=== PATIENT | male | born 1940 | race Caucasian/White ===

== ENCOUNTER 2017-02-05 22:40 | Inpatient (IN) ==
--- NOTE | 2017-02-05 22:58 | Emergency Department Note ---
Disposition Clinical Impression: Elevated troponin level Sepsis Qualifiers: Sepsis type: sepsis due to unspecified organism Qualified Code(s): A41.9 - Sepsis, unspecified organism Disposition: Admitted As Inpatient Condition: Fair Time of Disposition: 01:55 Altered Mental Status HPI - General Chief Complaint: ED Weakness Stated Complaint: weakness in both legs Time Seen by Provider: 02/05/17 22:44 Source: EMS Mode of arrival: EMS Limitations: altered mental status Nursing Notes Reviewed: Yes Vital Signs Reviewed: Yes - History of Present Illness HPI Narrative: 77-year-old male is brought to the emergency department by EMS for evaluation of stated back, and leg pain. Per EMS report, the patient had been on a bedside commode for an unknown duration. The patient, although altered, was only able to tell EMS personnel that he had been on the bedside commode since "this morning". Family had made attempts to reach the patient, but was unsuccessful. After multiple attempts, the family said a family member over to his house. At that time, but patient was found to be sitting on a bedside commode. The patient lives alone by himself. Last time any of his friends or family members heard from him was yesterday evening before he went to bed. Per the daughter's report who is at bedside, the patient was supposed to call his significant other upon waking this morning, however failed to do so. At the time my exam, the patient has no complaints of pain either in his back, buttocks , or legs. Upon questioning, he is only able to state that he "just could not get up". The patient is noted to have severe bilateral lower extremity lymphedema. The right leg has multiple open areas and is seeping a greenish/ yellowish purulent discharge. MD complaint: altered mental status, other Onset (ago): hour(s) Associated symptoms: Reports: weakness, difficulty walking - Related Data Allergies Allergy/AdvReac Type Severity Reaction Status Date / Time No Known Allergies Allergy Verified 02/05/17 23:07 Limitations: ROS unobtainable due to patients medical condition (Review of systems limited by patient's altered mental status) Past Medical History - Past Medical History Attestation: Yes The following information was validated with the patient. Source: obtained from family, nursing notes reviewed Medical history: Reports: other Physical Exam - General Limitations: altered mental status General appearance: alert (The patient is alert to person only.) - Head Head exam: atraumatic, normocephalic, normal inspection - Eye Eye exam: Present: normal appearance, PERRL, EOMI. Absent: nystagmus - Expanded Eye Exam Pupils: Bilateral: regular, round, reactive, size (2) - ENT ENT exam: mucous membranes dry - Neck Neck exam: Present: normal inspection, full ROM, trachea midline. Absent: lymphadenopathy - Chest Chest inspection: Present: normal inspection, symmetric chest wall rise - Respiratory Respiratory exam: Present: normal lung sounds bilaterally. Absent: respiratory distress, wheezes, stridor, accessory muscle use, prolonged expiratory phase - Cardiovascular Cardiovascular exam: Present: regular rate, normal rhythm, normal heart sounds - Abdominal Exam Abdominal exam: Present: soft, Non-Tender, normal bowel sounds. Absent: tenderness, distention, guarding, rebound, rigidity - Expanded Lower Extremity Exam Lower leg exam: Present: swelling (3+ pitting edema noted to the bilateral lower extremities), other (Severe lymphedema noted to bilateral lower extremities. Multiple open areas of the right lower extremity are draining a purulent yellowish/greenish discharge.) Foot/toe exam: Present: swelling (3+ pitting pedal edema noted bilaterally) Neurovascular/Tendon exam: Present: normal capillary refill. Absent: pulse deficit, motor deficit, sensory deficit, tendon deficit, extremity cold to touch - Neurological Exam Neurological exam: Present: alert - Expanded Neurological Exam Cranial nerves: EOM function (II, III, IV, ): Normal, facial palsy (VII): Normal, tongue deviation (XII): Normal Coma Scale Eye Opening: Spontaneous Coma Scale Motor Response: Obeys Commands Coma Scale Verbal Response: Confused Coma Scale Total: 14 - Psychiatric Psychiatric exam: Present: flat affect - Skin Skin exam: Present: warm, dry, intact, normal color Course Course Narrative: The patient's daughter and granddaughter who are in the room states that the last time they had heard from him was yesterday evening at approximately 2130. 0150: I have discussed this patient's case with Dr. Fontenot. Dr. Fontenot has had a [id number] evaluation with the patient and agrees with the plan. Recommendation has been made for admission to the hospitalist service. At this time, I am awaiting a return call from the hospitalist. He recommends administering at least 2 L of IV fluid due to the patient's elevated BNP. 0210: I spoke with Dr. Ling, hospitalist. Dr. Ling accepts the patient for admission 0245: The patient's lactic acid has improved to 3.1 after the administration of 2 L of IV fluid. At this point, I feel that it is appropriate to hold additional fluids due to the patient's elevated BNP and chest x-ray results at the risk of putting him into pulmonary edema. I discussed this plan with Dr. Gurrola and he is in agreement with this plan. Vital Signs Temperature 98.2 F 02/05/17 22:55 Pulse Rate 96 02/05/17 22:55 Respiratory Rate 18 02/05/17 22:55 Blood Pressure 107/93 02/05/17 22:55 O2 Sat by Pulse Oximetry 87 02/05/17 22:55 Temperature 98.1 F 02/06/17 03:29 Pulse Rate 83 02/06/17 03:29 Respiratory Rate 22 02/06/17 03:29 Blood Pressure 125/71 02/06/17 03:29 O2 Sat by Pulse Oximetry 98 02/06/17 03:29 Oxygen Delivery Oxygen Delivery Nasal Cannula Altered Mental Status - Medical Records Medical records reviewed: Yes I reviewed the patient's medical records. - Lab Data Lab results reviewed: Yes I reviewed the patient's lab results. Lab results narrative: Laboratory Last Values WBC 24.1 K/mcL (4.3-11.1) H 02/05/17 23:05 RBC 4.62 M/mcL (4.19-5.50) 02/05/17 23:05 Hgb 12.6 g/dL (12.9-16.9) L 02/05/17 23:05 Hct 40.7 % (37.5-50.1) 02/05/17 23:05 MCV 88.1 fL (83.0-100.0) 02/05/17 23:05 MCH 27.3 pg (28.0-33.3) L 02/05/17 23:05 MCHC 31.0 g/dL (31.6-35.5) L 02/05/17 23:05 RDW 18.9 % (11.5-14.5) H 02/05/17 23:05 Plt Count 182 K/mcL (140-400) 02/05/17 23:05 MPV 10.0 fL (9.4-12.4) 02/05/17 23:05 Seg Neutrophils % 68.0 % 02/05/17 23:05 Band Neutrophils % 22.0 % (0-4) H 02/05/17 23:05 Lymphocytes % 2.0 % 02/05/17 23:05 Monocytes % 6.0 % 02/05/17 23:05 Metamyelocytes % 2.0 % (0) H 02/05/17 23:05 Neutrophils # 21.7 K/mcL (1.6-8.9) H 02/05/17 23:05 Lymphocytes # 0.5 K/mcL (0.6-4.6) L 02/05/17 23:05 Monocytes # 1.5 K/mcL (0.0-1.3) H 02/05/17 23:05 Nucleated RBCs/100 WBC 0.1 /100 WBC (0) H 02/05/17 23:05 Platelet Estimate Normal (Normal) 02/05/17 23:05 Large Platelets Present (Not Present) A 02/05/17 23:05 Polychromasia 1+ (Not Present) A 02/05/17 23:05 PT 18.1 Seconds (9.4-12.1) H 02/05/17 23:05 INR 1.7 02/05/17 23:05 APTT 33.4 Seconds (26.0-36.0) 02/05/17 23:05 ABG pH 7.34 pH Units (7.32-7.45) 02/05/17 23:28 ABG pCO2 49 mmHg (35-45) H 02/05/17 23:28 ABG pO2 90 mmHg (85-104) 02/05/17 23:28 ABG HCO3 26.4 mEQ/L (21-27) 02/05/17:28 ABG Total CO2 27.9 mEq/L (20-26) H 02/05/17 23:28 ABG O2 Saturation 96 % (95-98) 02/05/17 23:28 ABG Base Excess 0.0 mEq/L (-2.0 to 3.0) 02/05/17 23:28 Blood Gas Modality NC 02/05/17 23: Inspired O2 40 % 02/05/17 23:28 Sodium 142 mEq/L (136-145) 02/05/17 23:05 Potassium 3.9 mEq/L (3.5-4.5) 02/05/17 23:05 Chloride 105 mEq/L (98-109) 02/05/17 23:05 Carbon Dioxide 22 mEq/L (19-29) 02/05/17 23:05 BUN 36 mg/dL (8-26) H 02/05/17 23:05 Creatinine 1.57 mg/dL (0.72-1.25) H 02/05/17 23:05 Est GFR ( Amer) 52 (> 60) L 02/05/17 23:05 Est GFR (Non-Af Amer) 43 (> 60) L 02/05/17 23:05 BUN/Creatinine Ratio 23 (6-26) 02/05/17 23:05 Glucose 113 mg/dL (70-99) H 02/05/17 23:05 Calculated Osmolality 303 (280-300) H 02/05/17 23:05 Lactic Acid 4.2 mmol/L (0.5-2.2) H* 02/05/17 23:05 Calcium 9.5 mg/dL (8.6-10.8) 02/05/17 23:05 Total Bilirubin 2.7 mg/dL (0.2-1.2) H 02/05/17 23:05 Direct Bilirubin 1.8 mg/dL (0.0-0.5) H 02/05/17 23:05 Indirect Bilirubin 0.9 mg/dL (0.0-1.2) 02/05/17 23:05 AST 58 Units/L (5-34) H 02/05/17 23:05 ALT 23 Units/L (0-55) 02/05/17 23:05 Alkaline Phosphatase 111 Units/L (38-126) 02/05/17 23:05 Ammonia 40 mcmol/L (18-72) 02/05/17 23:05 Troponin I 0.17 ng/mL (0-0.03) H* 02/05/17 23:05 B-Natriuretic Peptide 2958 pg/mL (0-100) H 02/05/17 23:05 Serum Total Protein 7.3 g/dL (6.0-8.3) 02/05/17 23:05 Albumin 2.8 g/dL (3.5-5.0) L 02/05/17 23:05 Globulin 4.5 g/dL (2.4-3.5) H 02/05/17 23:05 Albumin/Globulin Ratio 0.6 (1.1-2.2) L 02/05/17 23:05 Urine Color [place] (Yellow) A 02/06/17 00:49 Urine Clarity Cloudy (Clear) A 02/06/17 00:49 Urine pH 5.5 pH Units (5.0-8.0) 02/06/17 00:49 Ur Specific [place] 1.026 (1.010-1.025) H 02/06/17 00:49 Urine Protein 100 mg/dL (Neg-Trace) H 02/06/17 00:49 Urine Glucose (UA) Normal mg/dL (Normal) 02/06/17 00:49 Urine Ketones Trace mg/dL (Negative) H 02/06/17 00:49 Urine Blood Moderate (Negative) H 02/06/17 00:49 Urine Nitrite Negative (Negative) 02/06/17 00:49 Urine Bilirubin Moderate (Negative) H 02/06/17 00:49 Urine Urobilinogen Normal mg/dL (Normal) 02/06/17 00:49 Ur Leukocyte Esterase Small (Negative) H 02/06/17 00:49 Urine Microscopic RBC 5-15 per hpf (0-3) H 02/06/17 00:49 Urine Microscopic WBC 5-15 per hpf (0-3) H 02/06/17 00:49 Ur Squamous Epith Cells Many per lpf (None-Few) H 02/06/17 00:49 Urine Bacteria Few per hpf (None-Few) 02/06/17 00:49 Hyaline Casts Few per lpf (None-Few) 02/06/17 00:49 Urine Yeast Test Not Performed 02/06/17 00:49 Ur Culture Indicated? YES (NO) A 02/06/17 00:49 Urine Opiates Screen Negative ng/mL (Ctagoq=712) 02/06/17 00:49 Ur Barbiturates Screen Negative ng/mL (Wtkwgd=598) 02/06/17 00:49 Ur Phencyclidine Scrn Negative ng/mL (Cutoff=25) 02/06/17 00:49 Ur Amphetamines Screen Negative ng/mL (Wybtko=7797) 02/06/17 00:49 U Benzodiazepines Scrn Negative ng/mL (Nkoese=630) 02/06/17 00:49 Urine Cocaine Screen Negative ng/mL (Cutoff= 300) 02/06/17 00:49 U Marijuana (THC) Screen Negative ng/mL (Cutoff = 50) 02/06/17 00:49 Ethyl Alcohol < 10 mg/dL (0-10) 02/05/17 23:05 Result diagrams: 02/05/17 23:05 02/05/17 23:05 Lab Results 02/05/17 02/05/17 02/05/17 Range/Units 23:05 23:05 23:05 WBC 24.1 H (4.3-11.1) K/mcL RBC 4.62 (4.19-5.50) M/mcL Hgb 12.6 L (12.9-16.9) g/dL Hct 40.7 (37.5-50.1) % MCV 88.1 (83.0-100.0) fL MCH 27.3 L (28.0-33.3) pg MCHC 31.0 L (31.6-35.5) g/dL RDW 18.9 H (11.5-14.5) % Plt Count 182 (140-400) K/mcL MPV 10.0 (9.4-12.4) fL Seg Neutrophils % 68.0 % Band Neutrophils % 22.0 H (0-4) % Lymphocytes % 2.0 % Monocytes % 6.0 % Metamyelocytes % 2.0 H (0) % Neutrophils # 21.7 H (1.6-8.9) K/mcL Lymphocytes # 0.5 L (0.6-4.6) K/mcL Monocytes # 1.5 H (0.0-1.3) K/mcL Nucleated RBCs/100 WBC 0.1 H (0) /100 WBC Platelet Estimate Normal (Normal) Large Platelets Present A (Not Present) Polychromasia 1+ A (Not Present) PT 18.1 H (9.4-12.1) Seconds INR 1.7 APTT 33.4 (26.0-36.0) Seconds ABG pH (7.32-7.45) pH Units ABG pCO2 (35-45) mmHg ABG pO2 (85-104) mmHg ABG HCO3 (21-27) mEQ/L ABG Total CO2 (20-26) mEq/L ABG O2 Saturation (95-98) % ABG Base Excess (-2.0 to 3.0) mEq/L Blood Gas Modality Inspired O2 % Sodium 142 (136-145) mEq/L Potassium 3.9 (3.5-4.5) mEq/L Chloride 105 (98-109) mEq/L Carbon Dioxide 22 (19-29) mEq/L BUN 36 H (8-26) mg/dL Creatinine 1.57 H (0.72-1.25) mg/dL Est GFR ( Amer) 52 L (> 60) Est GFR (Non-Af Amer) 43 L (> 60) BUN/Creatinine Ratio 23 (6-26) Glucose 113 H (70-99) mg/dL Calculated Osmolality 303 H (280-300) Lactic Acid (0.5-2.2) mmol/L Calcium 9.5 (8.6-10.8) mg/dL Total Bilirubin 2.7 H (0.2-1.2) mg/dL Direct Bilirubin 1.8 H (0.0-0.5) mg/dL Indirect Bilirubin 0.9 (0.0-1.2) mg/dL AST 58 H (5-34) Units/L ALT 23 (0-55) Units/L Alkaline Phosphatase 111 (38-126) Units/L Ammonia (18-72) mcmol/L Troponin I (0-0.03) ng/mL B-Natriuretic Peptide (0-100) pg/mL Serum Total Protein 7.3 (6.0-8.3) g/dL Albumin 2.8 L (3.5-5.0) g/dL Globulin 4.5 H (2.4-3.5) g/dL Albumin/Globulin Ratio 0.6 L (1.1-2.2) Urine Color (Yellow) Urine Clarity (Clear) Urine pH (5.0-8.0) pH Units Ur Specific [place] (1.010-1.025) Urine Protein (Neg-Trace) mg/dL Urine Glucose (UA) (Normal) mg/dL Urine Ketones (Negative) mg/dL Urine Blood (Negative) Urine Nitrite (Negative) Urine Bilirubin (Negative) Urine Urobilinogen (Normal) mg/dL Ur Leukocyte Esterase (Negative) Urine Microscopic RBC (0-3) per hpf Urine Microscopic WBC (0-3) per hpf Ur Squamous Epith Cells (None-Few) per lpf Urine Bacteria (None-Few) per hpf Hyaline Casts (None-Few) per lpf Urine Yeast Ur Culture Indicated? (NO) Urine Opiates Screen (Ihnoiz=548) ng/mL Ur Barbiturates Screen (Rhjqdg=716) ng/mL Ur Phencyclidine Scrn (Cutoff=25) ng/mL Ur Amphetamines Screen (Iwyagg=2892) ng/mL U Benzodiazepines Scrn (Ezrzgk=877) ng/mL Urine Cocaine Screen (Cutoff= 300) ng/mL U Marijuana (THC) Screen (Cutoff = 50) ng/mL Ethyl Alcohol < 10 (0-10) mg/dL 02/05/17 02/05/17 02/05/17 Range/Units 23:05 23:05 23:05 WBC (4.3-11.1) K/mcL RBC (4.19-5.50) M/mcL Hgb (12.9-16.9) g/dL Hct (37.5-50.1) % MCV (83.0-100.0) fL MCH (28.0-33.3) pg MCHC (31.6-35.5) g/dL RDW (11.5-14.5) % Plt Count (140-400) K/mcL MPV (9.4-12.4) fL Seg Neutrophils % % Band Neutrophils % (0-4) % Lymphocytes % % Monocytes % % Metamyelocytes % (0) % Neutrophils # (1.6-8.9) K/mcL Lymphocytes # (0.6-4.6) K/mcL Monocytes # (0.0-1.3) K/mcL Nucleated RBCs/100 WBC (0) /100 WBC Platelet Estimate (Normal) Large Platelets (Not Present) Polychromasia (Not Present) PT (9.4-12.1) Seconds INR APTT (26.0-36.0) Seconds ABG pH (7.32-7.45) pH Units ABG pCO2 (35-45) mmHg ABG pO2 (85-104) mmHg ABG HCO3 (21-27) mEQ/L ABG Total CO2 (20-26) mEq/L ABG O2 Saturation (95-98) % ABG Base Excess (-2.0 to 3.0) mEq/L Blood Gas Modality Inspired O2 % Sodium (136-145) mEq/L Potassium (3.5-4.5) mEq/L Chloride (98-109) mEq/L Carbon Dioxide (19-29) mEq/L BUN (8-26) mg/dL Creatinine (0.72-1.25) mg/dL Est GFR ( Amer) (> 60) Est GFR (Non-Af Amer) (> 60) BUN/Creatinine Ratio (6-26) Glucose (70-99) mg/dL Calculated Osmolality (280-300) Lactic Acid 4.2 H* (0.5-2.2) mmol/L Calcium (8.6-10.8) mg/dL Total Bilirubin (0.2-1.2) mg/dL Direct Bilirubin (0.0-0.5) mg/dL Indirect Bilirubin (0.0-1.2) mg/dL AST (5-34) Units/L ALT (0-55) Units/L Alkaline Phosphatase (38-126) Units/L Ammonia 40 (18-72) mcmol/L Troponin I 0.17 H* (0-0.03) ng/mL B-Natriuretic Peptide (0-100) pg/mL Serum Total Protein (6.0-8.3) g/dL Albumin (3.5-5.0) g/dL Globulin (2.4-3.5) g/dL Albumin/Globulin Ratio (1.1-2.2) Urine Color (Yellow) Urine Clarity (Clear) Urine pH (5.0-8.0) pH Units Ur Specific [place] (1.010-1.025) Urine Protein (Neg-Trace) mg/dL Urine Glucose (UA) (Normal) mg/dL Urine Ketones (Negative) mg/dL Urine Blood (Negative) Urine Nitrite (Negative) Urine Bilirubin (Negative) Urine Urobilinogen (Normal) mg/dL Ur Leukocyte Esterase (Negative) Urine Microscopic RBC (0-3) per hpf Urine Microscopic WBC (0-3) per hpf Ur Squamous Epith Cells (None-Few) per lpf Urine Bacteria (None-Few) per hpf Hyaline Casts (None-Few) per lpf Urine Yeast Ur Culture Indicated? (NO) Urine Opiates Screen (Wothhv=085) ng/mL Ur Barbiturates Screen (Gxpvel=937) ng/mL Ur Phencyclidine Scrn (Cutoff=25) ng/mL Ur Amphetamines Screen (Ujxkyk=0270) ng/mL U Benzodiazepines Scrn (Pgyglp=846) ng/mL Urine Cocaine Screen (Cutoff= 300) ng/mL U Marijuana (THC) Screen (Cutoff = 50) ng/mL Ethyl Alcohol (0-10) mg/dL 02/05/17 02/05/17 02/06/17 Range/Units 23:05 23:28 00:49 WBC (4.3-11.1) K/mcL RBC (4.19-5.50) M/mcL Hgb (12.9-16.9) g/dL Hct (37.5-50.1) % MCV (83.0-100.0) fL MCH (28.0-33.3) pg MCHC (31.6-35.5) g/dL RDW (11.5-14.5) % Plt Count (140-400) K/mcL MPV (9.4-12.4) fL Seg Neutrophils % % Band Neutrophils % (0-4) % Lymphocytes % % Monocytes % % Metamyelocytes % (0) % Neutrophils # (1.6-8.9) K/mcL Lymphocytes # (0.6-4.6) K/mcL Monocytes # (0.0-1.3) K/mcL Nucleated RBCs/100 WBC (0) /100 WBC Platelet Estimate (Normal) Large Platelets (Not Present) Polychromasia (Not Present) PT (9.4-12.1) Seconds INR APTT (26.0-36.0) Seconds ABG pH 7.34 (7.32-7.45) pH Units ABG pCO2 49 H (35-45) mmHg ABG pO2 90 (85-104) mmHg ABG HCO3 26.4 (21-27) mEQ/L ABG Total CO2 27.9 H (20-26) mEq/L ABG O2 Saturation 96 (95-98) % ABG Base Excess 0.0 (-2.0 to 3.0) mEq/L Blood Gas Modality NC Inspired O2 40 % Sodium (136-145) mEq/L Potassium (3.5-4.5) mEq/L Chloride (98-109) mEq/L Carbon Dioxide (19-29) mEq/L BUN (8-26) mg/dL Creatinine (0.72-1.25) mg/dL Est GFR ( Amer) (> 60) Est GFR (Non-Af Amer) (> 60) BUN/Creatinine Ratio (6-26) Glucose (70-99) mg/dL Calculated Osmolality (280-300) Lactic Acid (0.5-2.2) mmol/L Calcium (8.6-10.8) mg/dL Total Bilirubin (0.2-1.2) mg/dL Direct Bilirubin (0.0-0.5) mg/dL Indirect Bilirubin (0.0-1.2) mg/dL AST (5-34) Units/L ALT (0-55) Units/L Alkaline Phosphatase (38-126) Units/L Ammonia (18-72) mcmol/L Troponin I (0-0.03) ng/mL B-Natriuretic Peptide 2958 H (0-100) pg/mL Serum Total Protein (6.0-8.3) g/dL Albumin (3.5-5.0) g/dL Globulin (2.4-3.5) g/dL Albumin/Globulin Ratio (1.1-2.2) Urine Color [place] A (Yellow) Urine Clarity Cloudy A (Clear) Urine pH 5.5 (5.0-8.0) pH Units Ur Specific [place] 1.026 H (1.010-1.025) Urine Protein 100 H (Neg-Trace) mg/dL Urine Glucose (UA) Normal (Normal) mg/dL Urine Ketones Trace H (Negative) mg/dL Urine Blood Moderate H (Negative) Urine Nitrite Negative (Negative) Urine Bilirubin Moderate H (Negative) Urine Urobilinogen Normal (Normal) mg/dL Ur Leukocyte Esterase Small H (Negative) Urine Microscopic RBC 5-15 H (0-3) per hpf Urine Microscopic WBC 5-15 H (0-3) per hpf Ur Squamous Epith Cells Many H (None-Few) per lpf Urine Bacteria Few (None-Few) per hpf Hyaline Casts Few (None-Few) per lpf Urine Yeast Test Not Performed Ur Culture Indicated? YES A (NO) Urine Opiates Screen (Feiilz=483) ng/mL Ur Barbiturates Screen (Ffqsnz=276) ng/mL Ur Phencyclidine Scrn (Cutoff=25) ng/mL Ur Amphetamines Screen (Yprfwi=0824) ng/mL U Benzodiazepines Scrn (Wdkdjt=202) ng/mL Urine Cocaine Screen (Cutoff= 300) ng/mL U Marijuana (THC) Screen (Cutoff = 50) ng/mL Ethyl Alcohol (0-10) mg/dL 02/06/17 02/06/17 Range/Units 00:49 02:26 WBC (4.3-11.1) K/mcL RBC (4.19-5.50) M/mcL Hgb (12.9-16.9) g/dL Hct (37.5-50.1) % MCV (83.0-100.0) fL MCH (28.0-33.3) pg MCHC (31.6-35.5) g/dL RDW (11.5-14.5) % Plt Count (140-400) K/mcL MPV (9.4-12.4) fL Seg Neutrophils % % Band Neutrophils % (0-4) % Lymphocytes % % Monocytes % % Metamyelocytes % (0) % Neutrophils # (1.6-8.9) K/mcL Lymphocytes # (0.6-4.6) K/mcL Monocytes # (0.0-1.3) K/mcL Nucleated RBCs/100 WBC (0) /100 WBC Platelet Estimate (Normal) Large Platelets (Not Present) Polychromasia (Not Present) PT (9.4-12.1) Seconds INR APTT (26.0-36.0) Seconds ABG pH (7.32-7.45) pH Units ABG pCO2 (35-45) mmHg ABG pO2 (85-104) mmHg ABG HCO3 (21-27) mEQ/L ABG Total CO2 (20-26) mEq/L ABG O2 Saturation (95-98) % ABG Base Excess (-2.0 to 3.0) mEq/L Blood Gas Modality Inspired O2 % Sodium (136-145) mEq/L Potassium (3.5-4.5) mEq/L Chloride (98-109) mEq/L Carbon Dioxide (19-29) mEq/L BUN (8-26) mg/dL Creatinine (0.72-1.25) mg/dL Est GFR ( Amer) (> 60) Est GFR (Non-Af Amer) (> 60) BUN/Creatinine Ratio (6-26) Glucose (70-99) mg/dL Calculated Osmolality (280-300) Lactic Acid 3.1 H (0.5-2.2) mmol/L Calcium (8.6-10.8) mg/dL Total Bilirubin (0.2-1.2) mg/dL Direct Bilirubin (0.0-0.5) mg/dL Indirect Bilirubin (0.0-1.2) mg/dL AST (5-34) Units/L ALT (0-55) Units/L Alkaline Phosphatase (38-126) Units/L Ammonia (18-72) mcmol/L Troponin I (0-0.03) ng/mL B-Natriuretic Peptide (0-100) pg/mL Serum Total Protein (6.0-8.3) g/dL Albumin (3.5-5.0) g/dL Globulin (2.4-3.5) g/dL Albumin/Globulin Ratio (1.1-2.2) Urine Color (Yellow) Urine Clarity (Clear) Urine pH (5.0-8.0) pH Units Ur Specific [place] (1.010-1.025) Urine Protein (Neg-Trace) mg/dL Urine Glucose (UA) (Normal) mg/dL Urine Ketones (Negative) mg/dL Urine Blood (Negative) Urine Nitrite (Negative) Urine Bilirubin (Negative) Urine Urobilinogen (Normal) mg/dL Ur Leukocyte Esterase (Negative) Urine Microscopic RBC (0-3) per hpf Urine Microscopic WBC (0-3) per hpf Ur Squamous Epith Cells (None-Few) per lpf Urine Bacteria (None-Few) per hpf Hyaline Casts (None-Few) per lpf Urine Yeast Ur Culture Indicated? (NO) Urine Opiates Screen Negative (Mzqfjr=083) ng/mL Ur Barbiturates Screen Negative (Wsmqha=159) ng/mL Ur Phencyclidine Scrn Negative (Cutoff=25) ng/mL Ur Amphetamines Screen Negative (Sqhglz=2567) ng/mL U Benzodiazepines Scrn Negative (Giloir=619) ng/mL Urine Cocaine Screen Negative (Cutoff= 300) ng/mL U Marijuana (THC) Screen Negative (Cutoff = 50) ng/mL Ethyl Alcohol (0-10) mg/dL - Radiology Data Radiology results reviewed: Yes I reviewed the patient's radiology results. Head CT 02/05/17 22:51 IMPRESSION: 1. No acute intracranial abnormality. 2. Mild chronic small vessel ischemic changes. D/ / Pérez Navarro MD / Pérez Navarro MD Interpreting Provider: Pérez Navarro MD Chest X-Ray 02/06/17 22:51 IMPRESSION: Mild cardiomegaly and bibasilar atelectasis in this low inspiratory portable examination. D/ / Pranav Willoughby MD / Pranav Willoughby MD Interpreting Provider: Pranav Willoughby MD - EKG Data EKG attestation: Yes I reviewed and interpreted this EKG. EKG results narrative: EKG reviewed by Dr. Fontenot as well. EKG shows atrial fibrillation with aberrant conduction or ventricular premature complexes at a rate of 99 bpm. No ectopy noted. No STEMI. Attestation Statement - Attestation Attestation: I, Star Fontenot, examined this patient and my medical decision-making was reviewed with the [employer]IDENCE LIFE DIRECTOR/PA/Advanced Practice Nurse/Resident Physician. I agree with the documented findings, disposition and treatment plan as described except to the extent set forth below. 77-year-old male presents to the emergency department with concerns of weakness and fever. Patient is unable to provide a history regarding his case her presentation. Patient has purulent drainage from open wounds on bilateral lower extremities. Patient is tachycardic and has a soft blood pressure however it is still greater than 100s systolic. Patient has an elevated BNP and is also likely in congestive heart failure. Patient had an elevated troponin likely secondary to ischemic demand with an EKG that showed atrial fibrillation with a rate of 99 without evidence of STEMI. Chest x-ray did not show specific infiltrate. Patient was started on vancomycin and Zosyn for treatment of cellulitis. Patient admitted to the hospital for sepsis for further care and evaluation. Vital signs stable prior to departure from the ED.
[2017-02-05 23:15] LABS: Hematocrit 40.7 % (37.5-50.1); Hemoglobin 12.6 g/dL (12.9-16.9); Mean Corpuscular Hemoglobin 27.3 pg (28.0-33.3); Mean Corpuscular Volume 88.1 fL (83.0-100.0); Nucleated Red Blood Cells 0.1 /100 WBC (0); Platelet Count 182 K/mcL (140-400); Red Blood Count 4.62 M/mcL (4.19-5.50); Red Cell Distribution Width 18.9 % (11.5-14.5)
[2017-02-05 23:23] LABS: INR 1.7; Prothrombin Time 18.1 Seconds (9.4-12.1)
[2017-02-05 23:25] LABS: Activated Partial Thrombo Time 33.4 Seconds (26.0-36.0)
[2017-02-05 23:31] LABS: Alanine Aminotransferase 23 Units/L (0-55); Albumin 2.8 g/dL (3.5-5.0); Albumin/Globulin Ratio 0.6 (1.1-2.2); Alkaline Phosphatase 111 Units/L (38-126); Aspartate Amino Transferase 58 Units/L (5-34); BUN/Creatinine Ratio 23 (6-26); Bilirubin,Direct 1.8 mg/dL (0.0-0.5); Bilirubin,Indirect 0.9 mg/dL (0.0-1.2); Bilirubin,Total 2.7 mg/dL (0.2-1.2); Blood Urea Nitrogen 36 mg/dL (8-26); Calcium 9.5 mg/dL (8.6-10.8); Carbon Dioxide 22 mEq/L (19-29); Chloride 105 mEq/L (98-109); Globulin 4.5 g/dL (2.4-3.5); Glucose 113 mg/dL (70-99); Osmolality,Calculated 303 (280-300); Potassium 3.9 mEq/L (3.5-4.5); Sodium 142 mEq/L (136-145); Total Protein 7.3 g/dL (6.0-8.3); eGFR For African Americans 52 (> 60); eGFR For Non-African Americans 43 (> 60)
[2017-02-05 23:34] LABS: Lymphocytes # 0.5 K/mcL (0.6-4.6); Monocytes # 1.5 K/mcL (0.0-1.3); Neutrophils # 21.7 K/mcL (1.6-8.9); Platelet Estimate Normal (Normal)
[2017-02-05 23:35] LABS: Polychromasia 1+ (Not Present)
[2017-02-05 23:35] LABS: ABG HCO3 26.4 mEQ/L (21-27); ABG Oxygen Saturation 96 % (95-98); ABG PCO2 49 mmHg (35-45); ABG PH 7.34 pH Units (7.32-7.45); ABG PO2 90 mmHg (85-104); ABG TCO2 27.9 mEq/L (20-26)
[2017-02-05 23:37] LABS: Blood Gas FiO2 40 %
[2017-02-05 23:37] LABS: Large Platelets Present (Not Present)
[2017-02-06 00:05] LABS: Ethanol < 10 mg/dL (0-10)
[2017-02-06] MEDS ORDERED: Furosemide 40 MG/4 ML VIAL IVP ONE (00:07)
[2017-02-06] MEDS ORDERED: Piperacillin/Tazobactam 3.375 GM in D5% in Water (Mini-Bag+) 100 ML IVPB ONE (00:07)
[2017-02-06] MEDS ORDERED: Vancomycin 1,000 MG in D5% in Water 250 ML IVPB ONE (00:07)
[2017-02-06 00:59] LABS: Bilirubin,Urine Moderate (Negative); Blood,Urine Moderate (Negative); Clarity,Urine Cloudy (Clear); Color,Urine Orange (Yellow); Glucose,Urine (UA) Normal (Normal); Ketones,Urine Trace mg/dL (Negative); Leukocyte Esterase,Urine Small (Negative); Nitrite,Urine Negative (Negative); PH,Urine 5.5 pH Units (5.0-8.0); Protein,Urine 100 mg/dL (Neg-Trace); Specific Gravity,Urine 1.026 (1.010-1.025); Urobilinogen,Urine Normal (Normal)
[2017-02-06 01:01] LABS: Squamous Epithelial Cell,Urine Many per lpf (None-Few)
[2017-02-06 01:05] LABS: Amphetamine Screen,Urine Negative ng/mL (Cutoff=1000); Barbiturate Screen,Urine Negative ng/mL (Cutoff=200); Benzodiazepines Screen,Urine Negative ng/mL (Cutoff=200); Cannabinoid Screen,Urine Negative ng/mL (Cutoff = 50); Cocaine Screen,Urine Negative ng/mL (Cutoff= 300); Opiate Screen,Urine Negative ng/mL (Cutoff=300); Phencyclidine Screen,Urine Negative ng/mL (Cutoff=25)
[2017-02-06 01:39] LABS: Bacteria,Urine Few per hpf (None-Few); Hyaline Casts,Urine Few per lpf (None-Few)
[2017-02-06] MEDS: 0.9 % Sodium Chloride 1,000 ML IVC SCH ×2 (02:01→05:09)
[2017-02-06] MEDS ORDERED: Naloxone 0.4 MG/ML INJ IVP PRN (05:00)
[2017-02-06] MEDS ORDERED: 0.9 % Sodium Chloride 1,000 ML IVC SCH (05:00)
[2017-02-06] MEDS ORDERED: Acetaminophen 325 MG TABLET PO PRN (05:00)
[2017-02-06] MEDS ORDERED: Dextrose Gel 15 GM PO PRN ×2 (05:04)
[2017-02-06] MEDS ORDERED: D5% in Water 1,000 ML IVC PRN (05:04)
[2017-02-06] MEDS ORDERED: *HR* Dextrose 50 % in Water (Syg) 50 ML SYRINGE IVP PRN (05:04)
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
[2017-02-06] MEDS ORDERED: Vancomycin 2,000 MG in D5% in Water 250 ML IVPB SCH (06:00)
[2017-02-06] MEDS: *HR* Heparin 5,000 UNIT/ML VIAL SQ SCH ×3 (06:04→22:37)
[2017-02-06] MEDS: Vancomycin 2,000 MG in D5% in Water 500 ML IVPB SCH (06:04)
[2017-02-06 06:28] LABS: Hematocrit 38.5 % (37.5-50.1); Hemoglobin 11.9 g/dL (12.9-16.9); Mean Corpuscular HGB Conc 30.9 g/dL (31.6-35.5); Mean Corpuscular Hemoglobin 27.9 pg (28.0-33.3); Mean Corpuscular Volume 90.2 fL (83.0-100.0); Mean Platelet Volume 10.2 fL (9.4-12.4); Platelet Count 158 K/mcL (140-400); Red Blood Count 4.27 M/mcL (4.19-5.50); Red Cell Distribution Width 19.3 % (11.5-14.5)
[2017-02-06 06:39] LABS: Hemoglobin A1C 6.9 %
[2017-02-06 06:41] LABS: Lymphocytes # 1.2 K/mcL (0.6-4.6); Monocytes # 1.2 K/mcL (0.0-1.3); Neutrophils # 17.7 K/mcL (1.6-8.9); Platelet Estimate Normal (Normal)
[2017-02-06 06:42] LABS: Polychromasia 1+ (Not Present)
[2017-02-06 06:43] LABS: Calcium 9.1 mg/dL (8.6-10.8); Chol/HDL Ratio 6.7 (0-4.9); Magnesium 2.1 mg/dL (1.6-2.6); Potassium 4.5 mEq/L (3.5-4.5)
[2017-02-06] MEDS: Insulin LISPRO 300 UNITS/3 ML VIAL SQ SCH ×4 (08:03→21:13)
[2017-02-06 09:13] LABS: Acinetobacter baumannii by PCR Not Detected (Not Detect); Candida albicans by PCR Not Detected (Not Detect); Candida glabrata by PCR Not Detected (Not Detect); Candida krusei by PCR Not Detected (Not Detect); Candida parapsilosis by PCR Not Detected (Not Detect); Candida tropicalis by PCR Not Detected (Not Detect); Enterococcus by PCR Not Detected (Not Detect); Escherichia coli by PCR Not Detected (Not Detect); Klebsiella oxytoca by PCR Not Detected (Not Detect); Klebsiella pneumoniae by PCR Not Detected (Not Detect); Pseudomonas aeruginosa by PCR Not Detected (Not Detect); Serratia marcescens by PCR Not Detected (Not Detect); Staphylococcus aureus by PCR Not Detected (Not Detect); Streptococcus agalactiae(B)PCR Not Detected (Not Detect); Streptococcus by PCR ***DETECTED*** (Not Detect); Streptococcus pneumoniae PCR Not Detected (Not Detect); Streptococcus pyogenes (A) PCR ***DETECTED*** (Not Detect); blaKPC Carbapenem-Resist Gene Not Detected (Not Detect); mecA Methicillin-Resist Gene Not Detected (Not Detect); vanA/B Vancomycin-Resist Genes Not Detected (Not Detect)
[2017-02-06] MEDS ORDERED: 0.9 % Sodium Chloride 250 ML IVC ONE (11:44)
[2017-02-06] MEDS ORDERED: 0.9 % Sodium Chloride 1,000 ML IVC STA (11:48)
[2017-02-06] MEDS ORDERED: Clindamycin 900 MG/50 ML 900 MG/50 ML IV.SOLN IVPB STA (11:48)
[2017-02-06] MEDS ORDERED: Clindamycin 900 MG/50 ML 900 MG/50 ML IV.SOLN IVPB SCH (12:45)
[2017-02-06 13:27] LABS: Calcium 8.9 mg/dL (8.6-10.8); Potassium 4.2 mEq/L (3.5-4.5)
[2017-02-06] MEDS: Clindamycin 900 MG/50 ML 900 MG/50 ML IV.SOLN IVPB SCH ×2 (13:34→21:13)
[2017-02-06] MEDS: Penicillin G Potassium 4,000,000 UNIT in D5% in Water 100 ML IVPB SCH ×2 (14:22→17:48)
[2017-02-06] MEDS ORDERED: Perflutren Lipid Microsphere 1.3 ML in 0.9 % Sodium Chloride 8.7 ML IVP ONE (14:25)
[2017-02-06] MEDS ORDERED: Aminoglycoside Consult 1 EACH MC ONE (14:56)
[2017-02-06 15:46] LABS: ABG Base Excess -0.8 mEq/L (-2.0 to 3.0); ABG HCO3 26.9 mEQ/L (21-27); ABG Oxygen Saturation 93 % (95-98); ABG PCO2 56 mmHg (35-45); ABG PH 7.29 pH Units (7.32-7.45); ABG PO2 75 mmHg (85-104); ABG TCO2 28.6 mEq/L (20-26)
[2017-02-06 15:47] LABS: Blood Gas FiO2 40 %
[2017-02-06] MEDS ORDERED: Clindamycin 600 MG/50 ML 600 MG/50 ML IV.SOLN IVPB SCH (16:00)
[2017-02-06] MEDS ORDERED: Piperacillin/Tazobactam 3.375 GM in D5% in Water (Mini-Bag+) 100 ML IVPB SCH (16:00)
[2017-02-06 17:23] LABS: ABG Base Excess 1.7 mEq/L (-2.0 to 3.0); ABG HCO3 28.6 mEQ/L (21-27); ABG Oxygen Saturation 96 % (95-98); ABG PCO2 53 mmHg (35-45); ABG PH 7.34 pH Units (7.32-7.45); ABG PO2 90 mmHg (85-104); ABG TCO2 30.2 mEq/L (20-26)
[2017-02-06 17:26] LABS: Blood Gas FiO2 40 %
[2017-02-06 17:27] LABS: Blood Gas PEEP 5 cm H2O; Blood Gas Respiration Rate 16
--- NOTE | 2017-02-06 18:33 | ECHO - Doppler Report ---
Echo with Imaging Enhancement Agent Name: Bello Montanez Date of Study: 02/06/2017 Date: 1940 Ht: 68.0 in Medical Record#: [id number] Age: 77 Wt: 280.0 lb Gender: Male BSA: 2.36 Order #: [id number] Location: [facility] Room #: 2N13 Reading Physician: Dandre Yung MD, [facility] Land Surveyor: Justus Strong RDCS Ordering Physician: Roopa Ling MD Primary Physician: None Indications: Elevated troponin, Sepsis Impressions: LVEF 20-25%. Severe global left ventricular systolic dysfunction. Mild concentric left ventricular hypertrophy. Severely dilated left atrium. No pulmonary hypertension. Severely dilated right atrium. Diastolic dysfunction, NOS Left Ventricular Wall Motion: Rest Echo Findings The apex, apical inferior, mid inferior, basal inferior, apical anterior, mid anterior, basal anterior, apical septal, mid inferior septal, basal inferior septal, apical lateral, mid anterior lateral, basal anterior lateral, mid anterior septal, mid inferior lateral, basal anterior septal and basal inferior lateral sharp were hypokinetic. Findings: Study Quality * Technically adequate exam. Aortic Valve * Trileaflet aortic valve with normal function. Mitral Valve * Normal mitral valve structure and function. Interatrial Septum * No evidence of PFO by color Doppler. Aorta * Normally sized aortic root. Left Ventricle * Mild concentric left ventricular hypertrophy. * Diastolic dysfunction, NOS * LVEF 20-25%. * Severe global left ventricular systolic dysfunction. * There is no LV thrombus. Left Atrium * Severely dilated left atrium. Tricuspid Valve * Estimated RVSP is 23 mmHg. * Estimated RA pressure is 10-15mmHg. * No pulmonary hypertension. * No tricuspid stenosis. * Mild tricuspid regurgitation. Pericardium * There is a trivial pericardial effusion present. Pulmonic Valve * No pulmonic stenosis. * Trace pulmonic regurgitation. * Pulmonic valve not well visualized. Right Ventricle * Moderately dilated right ventricle. * Moderate right ventricular hypokinesis. Right Atrium * Severely dilated right atrium. IVC * The IVC is dilated. * < 50% respiratory change. History Pacer/ICD Implant Contrast: Definity 1.3 ml in 8.7 ml of saline 2 ml. Measurements: BP: 85/ 64 2D Normal Values RVIDd: 4.67 cm <2.7 cm IVSd: 1.59 cm 0.6 - 1.0 cm LVIDd: 5.31 cm 3.7 - 5.6 cm LVPWd: 1.23 cm 0.6 - 1.1 cm LVIDs: 4.79 cm 1.5 - 3.6 cm AO: 3.20 cm < 4.0 cm LA: 5.40 cm 2.0 - 4.0cm %FS: 9.79 cm >25 % LA volume: 160 Mitral Valve Peak E:.91 m/sec Peak E' Lat Reji:7.83 cm/s Peak E' Med Reji:4.46 cm/s E/E' Lat Ratio:11.6 E/E' Med Ratio:20.4 Tricuspid Valve TV Regurg Peak Grad: 23.00mmHg TV Regurg Peak Reji: 2.27m/sec Updated by Dandre Yung MD, [facility] on 02/06/2017 6:22:49 PM electronically signed on 02/06/2017 6:28:15 PM with status of Final Wall Motion [place]: 1=Normal, 2=Hypokinesis, 3=Akinesis, 4=Dyskinesis, 5=Aneurysmal, 6=Hyperkinetic, X=Not Visualized (Blank)=Missing
--- NOTE | 2017-02-06 18:45 | Event Note ---
Date of Encounter: 02/06/17 Time of Encounter: 15:25 Critical care over the first hour. Time is spent 30 minutes. 77-year-old male with past medical history of diabetes, hypertension, and heart failure who was brought by EMS because his family was concerned that patient was not answering their calls. EMS found him sitting on the bedside commode and he told EMS that he sat there for at least a day because he was too weak to get up. Patient admitted with diagnosis of severe sepsis secondary to cellulitis, and acute kidney injury. He was started on broad-spectrum antibiotics including IV Zosyn, and IV vancomycin. I examined this patient at 11 AM, he was sleepy but easy to arouse. He answered all my questions. He is more bleeding obese. Chest: Good air entry in the upper lungs. His legs had a shiny red appearance with multiple ulcers oozing purulent discharge. Blood cultures came back positive for group A streptococcus and given concern for necrotizing fascitis, I ordered bilateral lower extremity CT that revealed severe diffuse bilateral lower extremity subcutaneous fat stranding and skin thickening compatible with lymphedema versus cellulitis. No soft tissue gas. Extensive atherosclerotic disease calcification. 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 Called by nurse because patient was very lethargic. Patient was very difficult to arouse but he was able to open eyes and answer yes and no questions after tactile stimuli. Patient is a morbidly obese man. Chest showed diminished air entry bibasal. Stat ABG revealed respiratory acidosis. He was started on BiPAP. PLAN: 1. Acute hypercapnic respiratory failure secondary to JODI/OSH. Continue BiPAP overnight. Repeat ABG showed correction of respiratory acidosis.
--- NOTE | 2017-02-06 20:48 | Electrocardiograph Report ---
[address] [address] Test Date: 2017-02-05 Pat Name: Bello Montanez Department: 104 Room: 2N13 Gender: M Manager Retirement: PENNY : 1940 Requested By: Walt Carnes Order Number: [id number] Reading MD: Dandre Yung MD Measurements Intervals Soldier Rate: 99 P: NC: 0 QRS: -12 QRSD: 133 T: 26 QT: 374 QTc: 431 Interpretive Statements ATRIAL FIBRILLATION WITH ABERRANT CONDUCTION OR VENTRICULAR PREMATURE COMPLEXES INDETERMINATE AXIS RBBB Electronically Signed On 02-06-2017 20:46:00 EDT by Dandre Yung MD
[2017-02-07] MEDS: Penicillin G Potassium 4,000,000 UNIT in D5% in Water 100 ML IVPB SCH ×5 (00:46→23:48)
[2017-02-07] MEDS: Clindamycin 900 MG/50 ML 900 MG/50 ML IV.SOLN IVPB SCH ×2 (04:37→14:17)
[2017-02-07 05:14] LABS: Hematocrit 37.9 % (37.5-50.1); Hemoglobin 11.6 g/dL (12.9-16.9); Mean Corpuscular HGB Conc 30.6 g/dL (31.6-35.5); Mean Corpuscular Hemoglobin 27.8 pg (28.0-33.3); Mean Corpuscular Volume 90.9 fL (83.0-100.0); Mean Platelet Volume 11.4 fL (9.4-12.4); Nucleated Red Blood Cells 0.2 /100 WBC (0); Platelet Count 137 K/mcL (140-400); Red Blood Count 4.17 M/mcL (4.19-5.50); Red Cell Distribution Width 19.3 % (11.5-14.5)
[2017-02-07 05:33] LABS: Albumin/Globulin Ratio 0.5 (1.1-2.2); Bilirubin,Direct 1.3 mg/dL (0.0-0.5); Bilirubin,Indirect 0.5 mg/dL (0.0-1.2); Bilirubin,Total 1.8 mg/dL (0.2-1.2); Calcium 8.9 mg/dL (8.6-10.8); Globulin 4.2 g/dL (2.4-3.5); Potassium 4.4 mEq/L (3.5-4.5); Total Protein 6.4 g/dL (6.0-8.3)
[2017-02-07 05:39] LABS: Albumin 2.2 g/dL (3.5-5.0)
[2017-02-07] MEDS: *HR* Heparin 5,000 UNIT/ML VIAL SQ SCH ×3 (06:19→23:47)
[2017-02-07] MEDS: Vancomycin 2,000 MG in D5% in Water 500 ML IVPB SCH (06:20)
[2017-02-07 06:29] LABS: Monocytes # 0.7 K/mcL (0.0-1.3); Neutrophils # 14.9 K/mcL (1.6-8.9); Platelet Estimate Normal (Normal); Polychromasia 1+ (Not Present)
[2017-02-07 06:30] LABS: Anisocytosis 1+ (Not Present); Reactive Lymphocytes Present (Not Present)
[2017-02-07] MEDS: Insulin LISPRO 300 UNITS/3 ML VIAL SQ SCH ×4 (08:53→21:15)
[2017-02-07] MEDS: Levofloxacin 750 MG/150 ML 750 MG/150 ML BAG IVPB SCH (11:08)
[2017-02-07] MEDS: Lactobacillus 1 EACH CAP.SPRINK PO SCH (11:08)
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
[2017-02-07] MEDS ORDERED: *HR* Heparin 5,000 UNIT/ML VIAL IVP ONE (13:35)
[2017-02-07] MEDS ORDERED: *HR* Heparin 5,000 UNIT/ML VIAL IVP PRN ×2 (13:35)
[2017-02-07] MEDS ORDERED: Heparin 25,000 UNIT/500 ML D5W 25,000 UNIT/500 ML MLS IVC SCH (13:45)
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
[2017-02-07] MEDS ORDERED: 0.9 % Sodium Chloride 250 ML ONE (13:53)
[2017-02-07] MEDS: Ondansetron 4 MG/2 ML VIAL IVP PRN ×2 (13:55→20:16)
[2017-02-07] MEDS ORDERED: Pantoprazole 40 MG VIAL IVP SCH (14:00)
[2017-02-07 14:40] LABS: Hematocrit 35.9 % (37.5-50.1); Hemoglobin 10.9 g/dL (12.9-16.9); Mean Corpuscular HGB Conc 30.4 g/dL (31.6-35.5); Mean Corpuscular Hemoglobin 27.3 pg (28.0-33.3); Mean Platelet Volume 11.2 fL (9.4-12.4); Platelet Count 124 K/mcL (140-400); Red Blood Count 3.99 M/mcL (4.19-5.50); Red Cell Distribution Width 18.8 % (11.5-14.5)
[2017-02-07 14:43] LABS: INR 1.4; Prothrombin Time 14.9 Seconds (9.4-12.1)
[2017-02-07 14:45] LABS: Activated Partial Thrombo Time 33.3 Seconds (26.0-36.0)
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
[2017-02-07] MEDS: Pantoprazole 40 MG in 0.9 % Sodium Chloride Mini Bag 100 ML IVC SCH ×2 (15:33→20:14)
[2017-02-07 15:49] LABS: Protein/Creatinine Ratio,Urine 0.41 mg/mg (0-0.20)
[2017-02-07] MEDS: Clindamycin 600 MG/50 ML 600 MG/50 ML IV.SOLN IVPB SCH ×2 (17:21→23:47)
--- NOTE | 2017-02-07 18:41 | Internal Med Progress Note ---
Date of Encounter: 02/07/17 Time of Encounter: 09:15 - Assessment and plan (1) Severe sepsis Current Visit: Yes Status: Acute Assessment and plan: secondary to GAS bacteremia and RLE cellulitis with infected ulcers. 02/05: blood cultures grew GAS 2/2. wound culture growing GNR. Ct of lower extremities shows severe diffuse bilateral lower extremity subcutaneous fat stranding and skin thickening compatible with lymphedema versus cellulitis. No soft tissue gas. Extensive atherosclerotic disease calcification. TTE negative for vegetation. Appreciate ID input. slowly improving. continue IV clindamycin and Penicillin. culturelle. repeat blood cultures. levaquin due to gnr wound culture. (2) Bacteremia Current Visit: Yes Status: Acute Assessment and plan: GAS bacteremia. plan as above. (3) Cellulitis Current Visit: Yes Status: Acute Assessment and plan: Plan as above. Qualifiers: Site of cellulitis: extremity Site of cellulitis of extremity: lower extremity Laterality: right Qualified Code(s): L03.115 - Cellulitis of right lower limb (4) Acute respiratory failure with hypoxia and hypercapnia Current Visit: Yes Status: Acute Assessment and plan: secondary to systolic heart failure EF 20%, COPD, JODI/OHS. 02/06: patient developed respiratory acidosis with encephalopathy that resolved after BIPAP. 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 Echo obtained shows EF 20-25%, severe global LV systolic dysfunction. Mild LVH, severely dilated left and right atrium. 02/07: repeat CXR shows pulmonary vascular congestion. appreciate cardiology input. continue nebs, oxygen. (5) SAGE (acute kidney injury) Current Visit: Yes Status: Acute Assessment and plan: unclear baseline kidney function. appreciate nephrology input. renal us unremarkable. poor UOP. close monitor. avoid nephrotoxic agents as possible. (6) Elevated troponin level Current Visit: Yes Status: Acute Assessment and plan: troponin peaked at 0.25. secondary to demand ischemia. (7) Acute systolic heart failure Current Visit: Yes Status: Acute Assessment and plan: plan as respiratory failure. (8) Hematemesis with nausea Current Visit: Yes Status: Acute Assessment and plan: KUB shows gastric distension. NG tube. (9) Diabetes mellitus Current Visit: Yes Status: Chronic Assessment and plan: adequate accuchecks. ISS. Qualifiers: Diabetes mellitus type: type 2 Diabetes mellitus complication status: with unspecified complications Diabetes mellitus terminal makeup operator insulin use: without terminal makeup operator use Qualified Code(s): E11.8 - Type 2 diabetes mellitus with unspecified complications (10) Cardiomyopathy Current Visit: Yes Status: Acute Assessment and plan: appreciate cardiology input. pt needs [facility] when medically stable. Qualifiers: Cardiomyopathy type: unspecified Qualified Code(s): I42.9 - Cardiomyopathy , unspecified (11) CAD (coronary artery disease) Current Visit: Yes Status: Chronic Qualifiers: Coronary Disease-Associated Artery/Lesion type: [place] artery [place] vs. transplanted heart: [place] heart Associated angina: without angina Qualified Code(s): I25.10 - Atherosclerotic heart disease of [place] coronary artery without angina pectoris (12) Back pain Current Visit: Yes Status: Acute Assessment and plan: check CT Cervical and lumbar spine. pain control. Qualifiers: Back pain location: low back pain Chronicity: chronic Back pain laterality: midline Sciatica presence: without sciatica Qualified Code(s): M54.5 - Low back pain; G89.29 - Other chronic pain (13) Anemia Current Visit: Yes Status: Acute Assessment and plan: hgb 10. check ferritin, iron, folate, b12 Qualifiers: Anemia type: unspecified type Qualified Code(s): D64.9 - Anemia, unspecified (14) A-fib Current Visit: Yes Status: Chronic Assessment and plan: pt unaware of afib. CHADS-vasc of 6. Qualifiers: Atrial fibrillation type: chronic Qualified Code(s): I48.2 - Chronic atrial fibrillation (15) Essential hypertension Current Visit: Yes Status: Acute (16) Acute metabolic encephalopathy Current Visit: Yes Status: Acute Assessment and plan: improved. secondary to infection, respiratory acidosis. (17) Lactic acidosis Current Visit: Yes Status: Resolved - Subjective Interval history: patient reports chronic back pain. - Constitutional Vitals: Temp Pulse Resp BP Pulse Ox 97.3 F L 84 18 99/59 95 02/07/17 16:16 02/07/17 16:16 02/07/17 16:16 02/07/17 16:16 02/07/17 16:16 General appearance: Present: disheveled, A&O X 2, morbidly obese. Absent: answers questions appropriately - Neck Neck exam general surgery: Present: supple, trachea midline - Respiratory Respiratory exam: Present: decreased breath sounds, rhonchi - Cardiovascular Cardiovascular exam: Present: RRR - GI/Abdominal GI/Abdominal exam: Present: normal bowel sounds, soft. Absent: distended, tenderness - Extremities Exam Extremities exam: Present: pedal edema - Neurological Exam Neurological exam: Present: alert, oriented X3. Absent: facial droop, speech deficit - Skin Skin exam: Present: erythema (RLE cellulitis with oozing ulcers. ) Internal Medicine: Result - Labs CBC & Chem 7: 02/07/17 14:30 02/07/17 04:35 Labs: Short CBC 02/07/17 02/07/17 Range/Units 04:35 14:30 WBC 16.5 H 17.2 H (4.3-11.1) K/mcL Hgb 11.6 L 10.9 L (12.9-16.9) g/dL Hct 37.9 35.9 L (37.5-50.1) % Plt Count 137 L 124 L (140-400) K/mcL Neutrophils # 14.9 H (1.6-8.9) K/mcL BMP 02/07/17 04:35 Sodium 139 Potassium 4.4 Chloride 105 Carbon Dioxide 26 BUN 57 H Creatinine 1.90 H Glucose 145 H Calcium 8.9 Cardiac Enzymes 02/06/17 Range/Units 18:39 Troponin I 0.24 H* (0-0.03) ng/mL Liver Function 02/07/17 Range/Units 04:35 Total Bilirubin 1.8 H (0.2-1.2) mg/dL Direct Bilirubin 1.3 H (0.0-0.5) mg/dL AST 105 H (5-34) Units/L ALT 42 (0-55) Units/L Alkaline Phosphatase 84 (38-126) Units/L Albumin 2.2 L D (3.5-5.0) g/dL - ABG Interpretation ABG results: ABG ABG pH 7.34 pH Units (7.32-7.45) 02/06/17 17:10 ABG pCO2 53 mmHg (35-45) H 02/06/17 17:10 ABG pO2 90 mmHg (85-104) 02/06/17 17:10 ABG O2 Saturation 96 % (95-98) 02/06/17 17:10 PT/INR, D-dimer PT 14.9 Seconds (9.4-12.1) H 02/07/17 14:30 - Impressions Impressions Chest CT 02/06/17 11:47 IMPRESSION: Motion limited examination. Bibasilar airspace disease could represent atelectasis or pneumonia and there are trace pleural effusions. 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 D/ / 02/06/2017 13:33:46 Jevon Corrigan MD / [facility] Interpreting Provider: Jevon Corrigan MD Retroperitoneum Ultrasound 02/07/17 14:00 IMPRESSION: Normal bilateral kidneys with no obstructive uropathy. D/ / 02/07/2017 15:41:52 [facility] Provider: Tony Cheema MD Chest X-Ray 02/07/17 14:02 IMPRESSION: 1. Unchanged bibasilar airspace opacities worse on the left, potentially atelectasis and/or pneumonia. 2. Pulmonary vascular congestion and mild to moderate cardiomegaly. 3. Left pleural effusion and possible right pleural effusion. 4. Moderate to severe gaseous distention of the stomach without findings of bowel obstruction. D/ / Torey Ambrosio MD / Torey Ambrosio MD Interpreting Provider: Torey Ambrosio MD X-Ray 02/07/17 14:02 IMPRESSION: 1. Unchanged bibasilar airspace opacities worse on the left, potentially atelectasis and/or pneumonia. 2. Pulmonary vascular congestion and mild to moderate cardiomegaly. 3. Left pleural effusion and possible right pleural effusion. 4. Moderate to severe gaseous distention of the stomach without findings of bowel obstruction. D/ / Torey Ambrosio MD / Torey Ambrosio MD Interpreting Provider: Torey Ambrosio MD Consult Discharge Plan - Plan Referrals: Yasmani Baker MD [Non-Partnered Physician] - (OFFICE WILL NOT MAKE A FOLLOW UP APPOINTMENT FOR THIS PATIENT UNITL WE HAVE A DISCHARGE ORDER)
[2017-02-07] MEDS ORDERED: *HR* LORazepam 2 MG/ML VIAL IVP ONE (23:35)
[2017-02-08 00:49] LABS: ABG Base Excess -1.2 mEq/L (-2.0 to 3.0); ABG HCO3 26.6 mEQ/L (21-27); ABG Oxygen Saturation 90 % (95-98); ABG PCO2 62 mmHg (35-45); ABG PH 7.24 pH Units (7.32-7.45); ABG PO2 68 mmHg (85-104); ABG TCO2 28.5 mEq/L (20-26); Blood Gas FiO2 36 %
[2017-02-08 00:54] LABS: Basophils % 0.1 %; Hematocrit 25.9 % (37.5-50.1); Immature Granulocytes % 1.4 % (0-4); Lymphocytes # 0.7 K/mcL (0.6-4.6); Mean Corpuscular HGB Conc 30.1 g/dL (31.6-35.5); Mean Corpuscular Hemoglobin 27.5 pg (28.0-33.3); Mean Corpuscular Volume 91.2 fL (83.0-100.0); Mean Platelet Volume 11.7 fL (9.4-12.4); Monocytes # 1.3 K/mcL (0.0-1.3); Monocytes % 6.9 %; Nucleated Red Blood Cells 1.4 /100 WBC (0); Platelet Count 107 K/mcL (140-400); Red Blood Count 2.84 M/mcL (4.19-5.50); Red Cell Distribution Width 18.6 % (11.5-14.5); Segmented Neutrophils % 87.6 %
[2017-02-08 00:57] LABS: Hemoglobin 7.8 g/dL (12.9-16.9)
[2017-02-08 00:59] LABS: INR 1.8; Prothrombin Time 19.8 Seconds (9.4-12.1)
[2017-02-08 01:02] LABS: Activated Partial Thrombo Time 40.8 Seconds (26.0-36.0)
[2017-02-08] MEDS: Pantoprazole 40 MG in 0.9 % Sodium Chloride Mini Bag 100 ML IVC SCH ×4 (01:17→20:06)
--- NOTE | 2017-02-08 01:43 | Event Note ---
Date of Encounter: 02/08/17 Time of Encounter: 01:43 On-call Hospitalist Note: I was paged to evaluate the pt for vomiting blood. RN reports that initial attempts to place NG tube were not successful. Pt had further episode of hematemesis and rectal bleeding. NG tube was successfully placed and connected to intermittent suction. Hemoglobin 7.8 and INR: 1.8. Start 2 units of PRBC transfusion and 2 units of FFP transfusion. BP remains low normal. Not tachycardic. Monitor CBC / H&H. continue pantoprazole infusion.
[2017-02-08 02:36] LABS: Calcium 8.1 mg/dL (8.6-10.8)
[2017-02-08] MEDS ORDERED: 0.9 % Sodium Chloride 500 ML ONE ×2 (02:49→15:59)
[2017-02-08 02:50] LABS: Potassium 5.3 mEq/L (3.5-4.5)
[2017-02-08 02:57] LABS: Anisocytosis 2+ (Not Present); Platelet Estimate Decreased (Normal)
[2017-02-08] MEDS ORDERED: *HR* LORazepam 2 MG/ML VIAL IVP ONE (03:35)
[2017-02-08] MEDS: Penicillin G Potassium 4,000,000 UNIT in D5% in Water 100 ML IVPB SCH ×4 (05:46→23:28)
[2017-02-08] MEDS ORDERED: 0.9 % Sodium Chloride 250 ML ONE ×2 (06:42→19:32)
[2017-02-08 07:07] LABS: Hematocrit 28.2 % (37.5-50.1); Hemoglobin 8.8 g/dL (12.9-16.9); Mean Corpuscular HGB Conc 31.2 g/dL (31.6-35.5); Mean Corpuscular Volume 89.8 fL (83.0-100.0); Mean Platelet Volume 12.1 fL (9.4-12.4); Nucleated Red Blood Cells 1.8 /100 WBC (0); Platelet Count 107 K/mcL (140-400); Red Blood Count 3.14 M/mcL (4.19-5.50)
[2017-02-08 07:10] LABS: Magnesium 2.1 mg/dL (1.6-2.6); Phosphorous 5.6 mg/dL (2.3-4.7); Potassium 5.5 mEq/L (3.5-4.5)
[2017-02-08 07:15] LABS: Rheumatoid Factor < 15 IU/mL (0-29)
[2017-02-08 07:44] LABS: Folate 6.4 ng/mL (7.0-31.4); Vitamin B12 1850 pg/mL (213-816)
[2017-02-08 07:46] LABS: Lymphocytes # 2.1 K/mcL (0.6-4.6); Monocytes # 0.4 K/mcL (0.0-1.3); Neutrophils # 18.5 K/mcL (1.6-8.9); Platelet Estimate Slight Decrease (Normal)
[2017-02-08] MEDS: Aspirin 81 MG TAB.CHEW PO SCH (08:13)
[2017-02-08] MEDS: Lactobacillus 1 EACH CAP.SPRINK PO SCH (08:13)
[2017-02-08] MEDS: Clindamycin 600 MG/50 ML 600 MG/50 ML IV.SOLN IVPB SCH ×3 (08:13→22:57)
[2017-02-08] MEDS: Insulin LISPRO 300 UNITS/3 ML VIAL SQ SCH ×2 (08:14→11:33)
--- NOTE | 2017-02-08 09:48 | Cardiology Progress Note ---
Date of Encounter: 02/08/17 Time of Encounter: 09:49 Assessment and Plan (1) Elevated troponin level Current Visit: Yes Status: Acute Troponins flat and adynamic--0.17, 0.22, 0.25, 0.24 in setting of sepsis. Likely secondary to demand ischemia, nondiagnostic for ACS. Hold asa in the setting of severe GI bleed. No BB due to being septic with marginal BP. Echo EF 20-25%, severe global LV systolic dysfunction. Medical management for now given SAGE, GI bleed, and sepsis. Possible LHC in future if clinical course allows. Recommend transfusing to keep Hgb above 8 in the setting of CAD and CHF. Cardiology will continue to montior peripherally. Please call with questions. (2) CHF (congestive heart failure) Current Visit: Yes Status: Acute BNP 2958. EF 20-25%, severe global LV systolic dysfunction. Prior gated EF on stress in 2009 was 58%. Fluid overload on exam. Was given IV Lasix, but then developed SAGE. Diuretics on hold. Kidney function continues to decline. Consider nephrology eval if no improvement. -1300ml for last 24 hours with NG out-put. CXR with trace pleural effusions. Unable to start BB due to sepsis and marginal BP. No YEHUDA-I due to renal function. Recommend Strict I/Os, daily weights, Na and fluid restriction. Qualifiers: Congestive heart failure type: unspecified congestive heart failure type Congestive heart failure chronicity: chronic Qualified Code(s): I50.9 - Heart failure, unspecified (3) CAD (coronary artery disease) Current Visit: Yes Status: Chronic Hx of 4 stents per patient. Hold asa as needed for severe GI bleed. No bb d/t hypotension in the setting of acute GI bleed and sepsis. Qualifiers: Coronary Disease-Associated Artery/Lesion type: [place] artery [place] vs. transplanted heart: [place] heart Associated angina: without angina Qualified Code(s): I25.10 - Atherosclerotic heart disease of [place] coronary artery without angina pectoris (4) Cardiomyopathy Current Visit: Yes Status: Acute EF 20-25% on echo. Global LV systolic dysfunction. No prior echo to compare, but gated EF on stress test in 2009 was 58%. Stress test at that time was abnormal--mild inferior and mild inferolateral partially reversible defects of moderate stress. Pt with known hx of PCI, but unable to tell me most recent year. No LHC on file at [facility]. Given new CMP, would recommend LHC, but complicated by his current clinical status including sepsis secondary to cellulitis, SAGE, and GI bleed. Recommend medical management for now. Can consider LHC during stay to evaluate ischemic cause of CMP only if clinical course allows. Discussed with daughter, questions answered. Unable to start BB due to marginal BP in setting of sepsis. No YEHUDA-I due to renal function. Qualifiers: Cardiomyopathy type: unspecified Qualified Code(s): I42.9 - Cardiomyopathy , unspecified (5) A-fib Current Visit: Yes Status: Chronic Pt reports being unaware of A-Fib diagnosis, but A-Fib noted on previous device checks. HR currently 70s-80s at bedside. No BB due to marginal BP and sepsis. CHADSVASC score of 6 (Age, HTN, DM, CHF, CAD). Has not been on anticoagulation previously. No anticoagulation d/t GI bleed. Qualifiers: Atrial fibrillation type: chronic Qualified Code(s): I48.2 - Chronic atrial fibrillation Discussion w patient/family: The assessment and plan as outlined above was discussed with the patient and/or family members who expressed understanding and agreement. All questions were answered. Thank you for involving us in the care of your patient. Please call with any questions. Subjective Principal diagnosis: GI bleed, Sepsis, acute systolic CHF. Interval history: Mr. Montanez unfortunately developed GI bleed. On my exam he is sedated and restrained to keep him from pulling NG tube out. Daughter is at bedside. Questions answered. Objective Vital Signs, Last 4 Hours Temp Pulse Resp BP Pulse Ox 02/08/17 09:17 98.0 F 92 16 116/76 92 02/08/17 08:38 93 02/08/17 08:00 97.5 F L 88 18 102/69 94 02/08/17 06:48 98.4 F 98 16 123/71 93 02/08/17 06:42 98.2 F 85 16 123/71 92 General: No Apparent Distress HEENT: Atraumatic, Normocephaly, Mucus Membranes Moist Neck: No JVD, Normal carotid pulses Cardiac: Other (Irregular) Lungs: Normal Breath Sounds, No Wheeze, Rales, Rhonchi Neuro: No focal deficits noted, Other (Unable to follow commands, drowsy) Abdomen: Soft, Non-Tender Skin: Other (BLE red and multiple ulcers. ) Extremities: Other (edema up to knees with weeping wounds. ) Results 02/08/17 06:39 02/08/17 06:39 Lab Results 02/07/17 02/07/17 02/08/17 14:30 14:30 00:45 WBC 17.2 H 18.3 H Hgb 10.9 L 7.8 L D Hct 35.9 L 25.9 L Plt Count 124 L 107 L INR 1.4 APTT 33.3 Sodium Potassium Chloride Carbon Dioxide BUN Creatinine Glucose Calcium Magnesium 02/08/17 02/08/17 02/08/17 00:45 01:23 06:39 WBC 21.0 H Hgb 8.8 L Hct 28.2 L Plt Count 107 L INR 1.8 APTT 40.8 H Sodium 138 Potassium 5.3 H Chloride 103 Carbon Dioxide 24 BUN 77 H D Creatinine 2.03 H Glucose 164 H Calcium 8.1 L Magnesium 02/08/17 06:39 WBC Hgb Hct Plt Count INR APTT Sodium 139 Potassium 5.5 H Chloride 104 Carbon Dioxide 24 BUN 81 H Creatinine 2.27 H Glucose 156 H Calcium 8.0 L Magnesium 2.1 Consult Discharge Plan - Plan Referrals: Samuel,Yasmani Martin MD [Non-Partnered Physician] - (OFFICE WILL NOT MAKE A FOLLOW UP APPOINTMENT FOR THIS PATIENT UNITL WE HAVE A DISCHARGE ORDER)
[2017-02-08 10:52] LABS: Hematocrit 30.1 % (37.5-50.1); Hemoglobin 9.5 g/dL (12.9-16.9)
--- NOTE | 2017-02-08 11:03 | Nephrology Progress Note ---
Date of Encounter: 02/08/17 Time of Encounter: 11:00 - Assessment and Plan (1) SAGE (acute kidney injury) Current Visit: Yes Status: Acute Kidney function continues to decline. UOP 400ml Baseline kidney function unknown Continue to avoid nephrotoxins (2) Anemia Current Visit: Yes Status: Acute per primary team Going for a scope today per nurse; vomiting blood and rectal bleeding Qualifiers: Anemia type: unspecified type Qualified Code(s): D64.9 - Anemia, unspecified (3) Severe sepsis Current Visit: Yes Status: Acute per primary team Subjective Principal diagnosis: GI bleed, Sepsis, acute systolic CHF. Interval history: Patient seen and examined. Laying in bed, daughter and other family at bedside. Patient unable to talk with me. Objective - Vital Signs Vital signs: Vital Signs Temp Pulse Resp BP Pulse Ox 02/08/17 09:17 98.0 F 92 16 116/76 92 02/08/17 09:00 98.0 F 90 18 107/74 94 02/08/17 08:38 93 02/08/17 08:00 97.5 F L 88 18 102/69 94 02/08/17 06:48 98.4 F 98 16 123/71 93 02/08/17 06:42 98.2 F 85 16 123/71 92 02/08/17 05:05 97 16 95 02/08/17 03:20 98.2 F 85 16 106/64 94 02/08/17 03:05 98.2 F 92 16 101/53 02/08/17 03:03 98.2 F 88 18 99/75 02/08/17 00:38 97 18 95 02/08/17 00:35 98.3 F 78 18 102/72 95 02/07/17 21:28 97.3 F L 86 19 96 02/07/17 21:11 97.3 F L 86 19 96 02/07/17 16:16 97.3 F L 84 18 99/59 95 02/07/17 16:00 86 02/07/17 12:04 98.2 F 72 18 101/72 97 02/07/17 11:34 76 Intake and Output 02/07/17 02/08/17 02/08/17 23:59 07:59 15:59 Intake Total 100 / 100 620 / 620 350 / 350 Output Total 1100 / 1100 1000 / 1000 Balance 100 / 100 -480 / -480 -650 / -650 Intake: IV Fluids 100 / 100 350 / 350 Protonix 40 MG In 0.9 % 100 / 100 200 / 200 Sodium Chloride (Mini-Bag +) 100 ML @ 20 mls/hr IVC .Q5H [facility] Rx#: [id number] Cleocin Premix 600 MG/50 50 / 50 ML 600 mg In 50 ml @ 50 mls/hr IVPB Q8HR [facility] Rx#: [id number] Pfizerpen 4,000,000 UNIT 0 / 0 100 / 100 In Dextrose 5% 100 ML @ 100 mls/hr IVPB Q6H [facility] Rx#:[id number] Blood Product 270 / 270 350 / 350 Plasma Unit 0 / 0 [id number] Rbcs Leuko Poor As-1 270 / 270 Unit [id number] Rbcs Leuko Poor As-1 0 / 0 350 / 350 Unit [id number] Output: Estimated Blood Loss 1000 / 1000 Catheter 100 / 100 Gastric Drainage 1000 / 1000 Other: Meal NPO at this time Stool Size Copious Stool Consistency liquid Stool Color Bright Red Blood Blood Glucose* 144 163 - General Appearance General appearance: Present: obese EENT: Present: ATNC Neck: Present: supple Cardiology: Present: edema (severe edema BLL), normal S1, normal S2 Gastrointestinal: Present: no guarding Integumentary: Present: warm and dry, ulcer (multiple open wounds on BLL) Neurologic: Present: confused, disoriented - Lab 02/08/17 10:41 02/08/17 06:39 Most recent lab results ABG pH 7.24 pH Units (7.32-7.45) L 02/08/17 00:33 ABG pCO2 62 mmHg (35-45) H 02/08/17 00:33 ABG pO2 68 mmHg (85-104) L 02/08/17 00:33 ABG HCO3 26.6 mEQ/L (21-27) 02/08/17 00:33 ABG O2 Saturation 90 % (95-98) L 02/08/17 00:33 Calcium 8.0 mg/dL (8.6-10.8) L 02/08/17 06:39 Phosphorus 5.6 mg/dL (2.3-4.7) H 02/08/17 06:39 Magnesium 2.1 mg/dL (1.6-2.6) 02/08/17 06:39 Urine Creatinine 158 mg/dL 02/07/17 15:26 Urine Total Protein 65 mg/dL (1-14) H 02/07/17 15:26 Consult Discharge Plan - Plan Referrals: Yasmani Baker MD [Non-Partnered Physician] - (OFFICE WILL NOT MAKE A FOLLOW UP APPOINTMENT FOR THIS PATIENT UNITL WE HAVE A DISCHARGE ORDER)
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
--- NOTE | 2017-02-08 13:11 | Anesthesia Evaluation PreOp ---
Date of Encounter: 02/08/17 Time of Encounter: 13:09 - Past History Planned Operation: EGD Cardiac History: IN (9 years ago), CHF, Arrhythmia, Cardiac Stent (9 years ago) , Pacemaker/ICD (9 years ago. Last interogated 2014), Other (Elevated troponins) Pulmonary History: Denies Any Significant HX RECREATIONAL ASSISTANT History: Denies Any Significant HX Other Medical History: Renal (CRD), Other (GI Bleed, Septic, Restrained, unaware of surroundings) Anesthesia History: No Prior Anesthetic Complications, Past Anesthesia (Knee sx , hip sx) Alcohol Use: rarely Drug use: none Medications and Allergies Furosemide [Lasix] 160 mg PO BID 02/06/17 [History] Potassium Chloride [Klor-Con 10] 20 meq PO BID 02/06/17 [History] Allergies chlorpheniramine [From Coricidin HBP Cough and Cold] Allergy (Unknown, Verified 02/07/17 17:02) See Comments Unsure of reaction- medication listed on patient's PCP allergies list- dextromethorphan [From Coricidin HBP Cough and Cold] Allergy (Unknown, Verified 02/07/17 17:02) See Comments Unsure of reaction- medication listed on patient's PCP allergies list- Penicillins Allergy (Verified 02/07/17 17:02) Rash Sulfa (Sulfonamide Antibiotics) Allergy (Verified 02/07/17 17:02) Rash - Meds/Allergy Pre-op Review Medications Reviewed: Yes Allergies Reviewed: Yes Beta Blockers on Current Med List: No Anesthesia Results - Labs 02/08/17 10:41 02/08/17 06:39 Laboratory Tests 02/08/17 00:45 INR 1.8 - Imaging EKG: image reviewed (Afib) Anesthesia Exam O2 Sat O2 Sat by Pulse Oximetry 93 O2 Sat by Pulse Oximetry 97 O2 Sat by Pulse Oximetry 94 O2 Sat by Pulse Oximetry 94 O2 Sat by Pulse Oximetry 92 O2 Sat by Pulse Oximetry 94 O2 Sat by Pulse Oximetry 94 O2 Sat by Pulse Oximetry 93 O2 Sat by Pulse Oximetry 92 O2 Sat by Pulse Oximetry 95 O2 Sat by Pulse Oximetry 94 O2 Sat by Pulse Oximetry 95 O2 Sat by Pulse Oximetry 95 O2 Sat by Pulse Oximetry 96 O2 Sat by Pulse Oximetry 96 O2 Sat by Pulse Oximetry 95 Vital Signs Temp Pulse Resp BP Pulse Ox 98.2 F 96 18 107/93 87 05/20/17 22:55 02/05/17 22:55 02/05/17 22:55 02/05/17 22:55 02/05/17 22:55 Vital Signs/O2 Sat, Most Current Temp Pulse Resp BP Pulse Ox 97.2 F L 83 18 88/63 93 02/08/17 11:36 02/08/17 11:53 02/08/17 11:36 02/08/17 11:36 02/08/17 11:36 Height: 5'8'' Weight: 284# NPO (# of Hours): > 8 hrs Pain Scale: 0 Pain Scale Used: Numeric (1 - 10) - HEENT Pupil (Motor): Pupils equal, EOMI Mallampati: III Teeth: Normal Oral Opening: Greater than 3 - RECREATIONAL ASSISTANT LOC: Disoriented, Uncooperative RECREATIONAL ASSISTANT Motor: Normal RUE, Normal LUE, Normal RLE, Normal LLE, Normal Face RECREATIONAL ASSISTANT Sensory: Normal: RUE, LUE, RLE, LLE, Face - Cardiac Rhythm: Regular Murmur: None JVD: No Carotid Bruit: No - Pulmonary Breath Sounds: bilateral Clear Respiratory Effort: Symmetrical Anesthesia Assess/Plan ASA Score: 4 Autologous Blood: Yes Monitoring Plan: Standard Monitors Recovery Plan: Other
--- NOTE | 2017-02-08 14:50 | Internal Med Progress Note ---
Date of Encounter: 02/08/17 Time of Encounter: 09:30 - Assessment and plan (1) Hematemesis with nausea Current Visit: Yes Status: Acute Assessment and plan: Patient with worsening hematemesis and severe upper GI bleed. NG tube has been placed. Patient to be taken for urgent upper GI endoscopy. GI consulted. Continue IV PPI. Very high risk for complications. Patient has prolonged INR at 1.9 likely due to underlying liver disease. Will give vitamin K. (2) Severe sepsis Current Visit: Yes Status: Acute Assessment and plan: With gram-positive strep pyogenes. Right leg wound also growing gram-negative rods. On clindamycin and penicillin G and levofloxacin. Repeat blood cultures have been negative so far. Infectious disease consult appreciated. (3) A-fib Current Visit: Yes Status: Chronic Assessment and plan: Rate controlled. Not on anticoagulation due to GI bleed Qualifiers: Atrial fibrillation type: chronic Qualified Code(s): I48.2 - Chronic atrial fibrillation (4) Acute metabolic encephalopathy Current Visit: Yes Status: Acute Assessment and plan: Due to severe GI bleed. Will check ammonia levels. (5) Acute respiratory failure with hypoxia and hypercapnia Current Visit: Yes Status: Acute Assessment and plan: Continue O2 supplementation. (6) SAGE (acute kidney injury) Current Visit: Yes Status: Acute Assessment and plan: Worsening renal function. Nephrology consulted. Likely due to severe sepsis and severe anemia from GI bleed. (7) Bacteremia Current Visit: Yes Status: Acute Assessment and plan: On IV antibiotics. Follow repeat blood culture results. (8) CAD (coronary artery disease) Current Visit: Yes Status: Chronic Assessment and plan: Hold aspirin for now due to acute GI bleed. Cardiology consulted due to mild elevation in troponins. Likely due to demand ischemia. Patient also has severe LV dysfunction with EF of 20-25%. Poor urine output. High risk for complications and . Qualifiers: Coronary Disease-Associated Artery/Lesion type: [place] artery [place] vs. transplanted heart: [place] heart Associated angina: without angina Qualified Code(s): I25.10 - Atherosclerotic heart disease of [place] coronary artery without angina pectoris (9) Cardiomyopathy Current Visit: Yes Status: Acute Qualifiers: Cardiomyopathy type: unspecified Qualified Code(s): I42.9 - Cardiomyopathy , unspecified (10) Diabetes mellitus Current Visit: Yes Status: Chronic Assessment and plan: Fairly controlled. Continue current insulin Qualifiers: Diabetes mellitus type: type 2 Diabetes mellitus complication status: with unspecified complications Diabetes mellitus local [employer] insulin use: without intermediate use Qualified Code(s): E11.8 - Type 2 diabetes mellitus with unspecified complications (11) Elevated troponin level Current Visit: Yes Status: Acute (12) Essential hypertension Current Visit: Yes Status: Acute Assessment and plan: Low blood pressure today due to GI bleed. Will monitor closely. Hold antihypertensives. (13) Cellulitis Current Visit: Yes Status: Acute Assessment and plan: Continue IV antibiotics. Qualifiers: Site of cellulitis: extremity Site of cellulitis of extremity: lower extremity Laterality: right Qualified Code(s): L03.115 - Cellulitis of right lower limb - Subjective Interval history: Patient is very lethargic. Having significant dark tinged output through NG tube. Family is present at bedside. No fever reported overnight. Patient had pulled his NG tube last night and is currently on restraints after a new tube was placed. Awaiting urgent upper GI endoscopy. - Constitutional Vitals: Temp Pulse Resp BP Pulse Ox 97.2 F L 83 18 88/63 93 02/08/17 11:36 02/08/17 13:40 02/08/17 11:36 02/08/17 11:36 02/08/17 11:36 General appearance: Present: disheveled, morbidly obese. Absent: answers questions appropriately Exam: Moderate distress - Respiratory Respiratory exam: Present: CTAB. Absent: accessory muscle use, rales, rhonchi, wheezes - Cardiovascular Cardiovascular exam: Present: irregular rhythm, +S1, +S2. Absent: diastolic murmur, gallop, rubs, systolic murmur - GI/Abdominal GI/Abdominal exam: Present: normal bowel sounds, soft, no peritoneal signs. Absent: distended, tenderness - Extremities Exam Extremities exam: Present: pedal edema, warm, radial pulses palpable and symetrical. Absent: calf tenderness, cyanotic - Neurological Exam Neurological exam: Present: altered. Absent: facial droop Additional comments: Somnolent and very lethargic Internal Medicine: Result - Labs CBC & Chem 7: 02/08/17 10:41 02/08/17 06:39 Labs: Short CBC 02/08/17 02/08/17 02/08/17 Range/Units 00:45 06:39 10:41 WBC 18.3 H 21.0 H (4.3-11.1) K/mcL Hgb 7.8 L D 8.8 L 9.5 L (12.9-16.9) g/dL Hct 25.9 L 28.2 L 30.1 L (37.5-50.1) % Plt Count 107 L 107 L (140-400) K/mcL Neutrophils # 16.0 H 18.5 H (1.6-8.9) K/mcL BMP 02/08/17 02/08/17 01:23 06:39 Sodium 138 139 Potassium 5.3 H 5.5 H Chloride 103 104 Carbon Dioxide 24 24 BUN 77 H D 81 H Creatinine 2.03 H 2.27 H Glucose 164 H 156 H Calcium 8.1 L 8.0 L - ABG Interpretation ABG results: ABG ABG pH 7.24 pH Units (7.32-7.45) L 02/08/17 00:33 ABG pCO2 62 mmHg (35-45) H 02/08/17 00:33 ABG pO2 68 mmHg (85-104) L 02/08/17 00:33 ABG O2 Saturation 90 % (95-98) L 02/08/17 00:33 PT/INR, D-dimer PT 19.8 Seconds (9.4-12.1) H 02/08/17 00:45 - Impressions Impressions Retroperitoneum Ultrasound 02/07/17 14:00 IMPRESSION: Normal bilateral kidneys with no obstructive uropathy. D/ / 02/07/2017 15:41:52 Tony Cheema MD / [email or web address] Interpreting Provider: Tony Cheema MD Chest X-Ray 02/07/17 14:02 IMPRESSION: 1. Unchanged bibasilar airspace opacities worse on the left, potentially atelectasis and/or pneumonia. 2. Pulmonary vascular congestion and mild to moderate cardiomegaly. 3. Left pleural effusion and possible right pleural effusion. 4. Moderate to severe gaseous distention of the stomach without findings of bowel obstruction. D/ / Torey Ambrosio MD / Torey Ambrosio MD Interpreting Provider: Torey Ambroiso MD X-Ray 02/07/17 14:02 IMPRESSION: 1. Unchanged bibasilar airspace opacities worse on the left, potentially atelectasis and/or pneumonia. 2. Pulmonary vascular congestion and mild to moderate cardiomegaly. 3. Left pleural effusion and possible right pleural effusion. 4. Moderate to severe gaseous distention of the stomach without findings of bowel obstruction. D/ / Torey Ambrosio MD / Torey Ambrosio MD Interpreting Provider: Torey Ambrosio MD Humerus X-Ray 02/07/17 15:25 IMPRESSION: No acute abnormality in the left shoulder. No acute abnormality in the left humerus. Severe glenohumeral joint osteoarthritis. D/ / 02/07/2017 21:08:26 Christopher Pan MD / [email or web address] Interpreting Provider: Christopher Pan MD Shoulder X-Ray 02/07/17 15:25 IMPRESSION: No acute abnormality in the left shoulder. No acute abnormality in the left humerus. Severe glenohumeral joint osteoarthritis. D/ / 02/07/2017 21:08:26 Christopher Pan MD / [email or web address] Interpreting Provider: Christopher Pan MD Ankle X-Ray 02/07/17 15:53 IMPRESSION: Postoperative change of right ankle total arthroplasty. Severe subsidence of the talar component is again noted, without definite evidence of loosening. D/ / 02/07/2017 21:12:21 Pino Olmos MD / [email or web address] Interpreting Provider: Pino Olmos MD KUB X-Ray 02/08/17 01:20 IMPRESSION: 1. Well-positioned NG tube. D/ / 02/08/2017 04:53:55 Kiel Kirkland MD / [facility] Interpreting Provider: Kiel Kirkland MD Chest X-Ray 02/08/17 01:30 IMPRESSION: 1. Interval present enteric catheter which appears in satisfactory position. 2. Cardiomegaly with pulmonary edema and pleural effusions in keeping with CHF. 3. Hypoinflated lungs. D/ / Amparo Morgan MD / Amparo Morgan MD Interpreting Provider: Amapro Morgan MD X-Ray 02/08/17 08:29 IMPRESSION: Enteric tube present with both tip and side-port in the body of the stomach. D/ / Dave Krishnamurthy MD / Dave Krishnamurthy MD Interpreting Provider: Dave Krishnamurthy MD Consult Discharge Plan - Plan Referrals: Yasmani Baker MD [Non-Partnered Physician] - (OFFICE WILL NOT MAKE A FOLLOW UP APPOINTMENT FOR THIS PATIENT UNITL WE HAVE A DISCHARGE ORDER) - Attending Attestation This document has been at least partially created by [employer] recognition technology by Dr. Mcelroy. Errors in grammar, wording or other phrases may exist. If errors are found after the documentation is signed, they will be addressed individually in the addendum section of this document when appropriate.
[2017-02-08] MEDS ORDERED: Hydrocortisone Sodium Succ 100 MG/2 ML VIAL ONE (16:02)
[2017-02-08] MEDS ORDERED: *HR* Midazolam HCl 5 MG/5 ML VIAL IVP ONE ×3 (16:02→18:30)
[2017-02-08 16:06] LABS: Immature Platelets 11.6 % (1.1-6.1); Nucleated Red Blood Cells 2.9 /100 WBC (0)
[2017-02-08 16:15] LABS: Hematocrit 24.4 % (37.5-50.1); Hemoglobin 7.9 g/dL (12.9-16.9); Mean Corpuscular HGB Conc 32.4 g/dL (31.6-35.5); Mean Corpuscular Hemoglobin 28.6 pg (28.0-33.3); Mean Corpuscular Volume 88.4 fL (83.0-100.0); Mean Platelet Volume 11.9 fL (9.4-12.4); Red Blood Count 2.76 M/mcL (4.19-5.50); Red Cell Distribution Width 17.8 % (11.5-14.5)
--- NOTE | 2017-02-08 16:22 | Anesthesia Procedures ---
Date of Encounter: 02/08/17 Time of Encounter: 16:21 Procedures: Anesthesia - Intubation Time out performed: Yes Sedative: Etomidate Amount Sedative given: 18 mg Paralytic: Succinylcholine Mg given: 160 Laryngoscope: Charisse Laryngoscope Size: 3 ET Tube Size: 8 ET tube uncuffed: No Tube secured depth (cm): 23 Tube secured location: lips Tube Placement Confirmation: visualized tube passing through cords, equal breath sounds bilaterally, no breath sounds over epigastrium, confirmation by colorimetric device Patient tolerated procedure: well, no complications Intubation complications: none
--- NOTE | 2017-02-08 16:25 | Anesthesia Evaluation Post Op ---
Date of Encounter: 02/08/17 Time of Encounter: 16:24 - Vital Signs Vital Signs: Last Vital Signs Temp 98.4 F 02/08/17 15:48 Pulse 93 02/08/17 15:48 Resp 12 02/08/17 15:48 BP 98/52 02/08/17 15:48 Pulse Ox 97 02/08/17 15:48 - Airway Airway: Intubated - Cardiovascular Baseline Rhythm - Mental Status Mental Status: Sedated - Pain Pain Scale used: Unable to assess - Nausea Vomiting Nausea Vomiting: Unable to assess - Hydration Hydration: NPO - Discharge PostOp Status: Transfer Patient to floor (ICU care -- patient will receive 1 U PRBC's for anemia and hypotension; patient was intubated in PACU for respiratory distress)
[2017-02-08 16:34] LABS: Platelet Count 97 K/mcL (140-400)
[2017-02-08 16:38] LABS: Monocytes # 1.4 K/mcL (0.0-1.3); Neutrophils # 21.5 K/mcL (1.6-8.9)
[2017-02-08 16:40] LABS: Anisocytosis 1+ (Not Present); Large Platelets Present (Not Present); Platelet Estimate Decreased (Normal)
[2017-02-08 16:41] LABS: Reactive Lymphocytes Present (Not Present)
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
[2017-02-08] MEDS ORDERED: Lacri-Lube 3.5 GM TUBE BOTH EYES PRN (17:21)
--- NOTE | 2017-02-08 18:14 | Infectious Disease Progress No ---
Date of Encounter: 02/08/17 Time of Encounter: 18:09 - Assessment and Plan (1) Severe sepsis Current Visit: Yes Status: Acute The patient had two SIRS criteria plus SAGE, lactic acidosis, and bandemia. Likely secondary to bacteremia and RLE cellulitis. Improved. WBC is trending down. Tachycardia has improved. Lactic acid level is back to normal. Blood cultures drawn 02/05/17 are positive 2/2 sets for GAS. Repeat blood cultures x 2 sets in the AM. (2) Bacteremia Current Visit: Yes Status: Acute Causative organism GAS. Source likely RLE cellulitis. Blood cultures drawn 02/05/17 are positive 2/2 sets for GAS per PCR. Sensitivities are pending. Complicated due to the presence of hardware and pacemaker. No endocarditis stigmata noted on exam. Low index of suspicion for IE. TTE negative for valvular vegetations. Repeat blood cultures in the AM x 2 sets. Continue clindamycin IV, but decrease dose to 600mg IV Q8H. Continue PCN 4 million units IV Q4H. Start probiotic BID. Await repeat blood cultures. Duration of treatment depends on the clinical picture. (3) Cellulitis Current Visit: Yes Status: Acute Although the patient does have erythema to the BLE, I believe that the LLE erythema is more likely secondary to venous stasis dermatitis rather than an acute infection. Likely secondary to venous stasis ulcers. Wound CT of the BLE shows evidence of skin thickening of the BLE consistent with cellulitis vs. lymphedema. 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 There is no abscess or evidence of osteomyelitis. Consult Podiatry. Discussed CT findings with Dr. De Santiago re: subsidence of the hardware. Due to motion artifact on the CT, recommends plain film x-rays to evaluate for loosening. Check ESR and CRP. Get plain film x-rays of the right ankle to evaluate for possible loosening of the ankle hardware which could indicate osteomyelitis. Continue antibiotics as above. Consult wound care team for wound care recommendations. Duration of treatment depends on the clinical picture. Qualifiers: Qualified Code(s): L03.115 - Cellulitis of right lower limb (4) SAGE (acute kidney injury) Current Visit: Yes Status: Acute Etiology unclear: SAGE on CKD vs. sepsis vs. other. Urine output diminished over the past 24 hours. Per nursing, heller catheter clamped at about 1240 and no urine in the bladder per UTS tech. Nephrology consulted and following. Renal and bladder UTS ordered and pending. Management per the nephrology and primary teams. (5) Lactic acidosis Current Visit: Yes Status: Resolved (6) Hematemesis with nausea Current Visit: Yes Status: Acute gastric ulcer s/p EGD ulcer clipped and epi given post EGD complication requiring intubation (7) Back pain Current Visit: Yes Status: Acute Qualifiers: Qualified Code(s): M54.5 - Low back pain; G89.29 - Other chronic pain (8) Elevated troponin level Current Visit: Yes Status: Acute (9) Anemia Current Visit: Yes Status: Acute Qualifiers: Qualified Code(s): D50.0 - Iron deficiency anemia secondary to blood loss ( chronic) (10) Diabetes mellitus Current Visit: Yes Status: Chronic Qualifiers: Qualified Code(s): E11.8 - Type 2 diabetes mellitus with unspecified complications (11) CHF (congestive heart failure) Current Visit: Yes Status: Acute Qualifiers: Qualified Code(s): I50.9 - Heart failure, unspecified (12) CAD (coronary artery disease) Current Visit: Yes Status: Chronic Qualifiers: Qualified Code(s): I25.10 - Atherosclerotic heart disease of [place] coronary artery without angina pectoris (13) A-fib Current Visit: Yes Status: Chronic Qualifiers: Qualified Code(s): I48.2 - Chronic atrial fibrillation - Subjective Interval history: patient is seen and examined. just got transferred from EGD to ICU. Patient was found to have a gastric ulcer that was clipped. patient also was in respiratory distress after the EGD while in recovery and needed to be intubated. patient also had GNR and was started on levaquin. Infect Dis PN-Objective Data - Labs CBC & Chem 7: 02/08/17 15:46 02/08/17 06:39 Labs: Laboratory Results - last 24 hr 02/07/17 02/07/17 02/07/17 08:04 11:13 16:18 WBC RBC Hgb Hct MCV MCH MCHC RDW Plt Count MPV Immature Gran % Seg Neutrophils % Band Neutrophils % Lymphocytes % Monocytes % Eosinophils % Basophils % Neutrophils # Lymphocytes # Monocytes # Eosinophils # Basophils # Nucleated RBCs/100 WBC Reactive Lymphocytes Platelet Estimate Large Platelets Immature Plt Fraction Anisocytosis PT INR APTT ABG pH ABG pCO2 ABG pO2 ABG HCO3 ABG Total CO2 ABG O2 Saturation ABG Base Excess Blood Gas Modality Inspired O2 Sodium Potassium Chloride Carbon Dioxide BUN Creatinine Est GFR ( Amer) Est GFR (Non-Af Amer) BUN/Creatinine Ratio Glucose POC Glucose 165 H 148 H 160 H Calculated Osmolality Calcium Phosphorus Magnesium Iron % Saturation Transferrin Ferritin Vitamin B12 Folate Rheumatoid Factor Specimen Rejected Blood Type Antibody Screen Crossmatch 02/07/17 02/08/17 02/08/17 21:08 00:33 00:45 WBC 18.3 H RBC 2.84 L Hgb 7.8 L D Hct 25.9 L MCV 91.2 MCH 27.5 L MCHC 30.1 L RDW 18.6 H Plt Count 107 L MPV 11.7 Immature Gran % 1.4 Seg Neutrophils % 87.6 Band Neutrophils % Lymphocytes % 4.0 Monocytes % 6.9 Eosinophils % 0.0 Basophils % 0.1 Neutrophils # 16.0 H Lymphocytes # 0.7 Monocytes # 1.3 Eosinophils # 0.0 Basophils # 0.0 Nucleated RBCs/100 WBC 1.4 H Reactive Lymphocytes Platelet Estimate Decreased L Large Platelets Immature Plt Fraction Anisocytosis 2+ A PT INR APTT ABG pH 7.24 L ABG pCO2 62 H ABG pO2 68 L ABG HCO3 26.6 ABG Total CO2 28.5 H ABG O2 Saturation 90 L ABG Base Excess -1.2 Blood Gas Modality NC Inspired O2 36 Sodium Potassium Chloride Carbon Dioxide BUN Creatinine Est GFR ( Amer) Est GFR (Non-Af Amer) BUN/Creatinine Ratio Glucose POC Glucose 144 H Calculated Osmolality Calcium Phosphorus Magnesium Iron % Saturation Transferrin Ferritin Vitamin B12 Folate Rheumatoid Factor Specimen Rejected Blood Type Antibody Screen Crossmatch 02/08/17 02/08/17 02/08/17 00:45 00:45 00:52 WBC RBC Hgb Hct MCV MCH MCHC RDW Plt Count MPV Immature Gran % Seg Neutrophils % Band Neutrophils % Lymphocytes % Monocytes % Eosinophils % Basophils % Neutrophils # Lymphocytes # Monocytes # Eosinophils # Basophils # Nucleated RBCs/100 WBC Reactive Lymphocytes Platelet Estimate Large Platelets Immature Plt Fraction Anisocytosis PT 19.8 H INR 1.8 APTT 40.8 H ABG pH ABG pCO2 ABG pO2 ABG HCO3 ABG Total CO2 ABG O2 Saturation ABG Base Excess Blood Gas Modality Inspired O2 Sodium Potassium Chloride Carbon Dioxide BUN Creatinine Est GFR ( Amer) Est GFR (Non-Af Amer) BUN/Creatinine Ratio Glucose POC Glucose Calculated Osmolality Calcium Phosphorus Magnesium Iron % Saturation Transferrin Ferritin Vitamin B12 Folate Rheumatoid Factor Specimen Rejected Contaminated Blood Type A POSITIVE Antibody Screen NEGATIVE Crossmatch See Detail 02/08/17 02/08/17 02/08/17 01:23 05:46 06:39 WBC 21.0 H RBC 3.14 L Hgb 8.8 L Hct 28.2 L MCV 89.8 MCH 28.0 MCHC 31.2 L RDW 18.0 H Plt Count 107 L MPV 12.1 Immature Gran % Seg Neutrophils % 88.0 Band Neutrophils % Lymphocytes % 10.0 Monocytes % 2.0 Eosinophils % Basophils % Neutrophils # 18.5 H Lymphocytes # 2.1 Monocytes # 0.4 Eosinophils # Basophils # Nucleated RBCs/100 WBC 1.8 H Reactive Lymphocytes Platelet Estimate Slight Decrease L Large Platelets Immature Plt Fraction Anisocytosis PT INR APTT ABG pH ABG pCO2 ABG pO2 ABG HCO3 ABG Total CO2 ABG O2 Saturation ABG Base Excess Blood Gas Modality Inspired O2 Sodium 138 Potassium 5.3 H Chloride 103 Carbon Dioxide 24 BUN 77 H D Creatinine 2.03 H Est GFR ( Amer) 39 L Est GFR (Non-Af Amer) 32 L BUN/Creatinine Ratio 38 H Glucose 164 H POC Glucose 163 H Calculated Osmolality 313 H Calcium 8.1 L Phosphorus Magnesium Iron % Saturation Transferrin Ferritin Vitamin B12 Folate Rheumatoid Factor Specimen Rejected Blood Type Antibody Screen Crossmatch 02/08/17 02/08/17 02/08/17 06:39 06:39 10:41 WBC RBC Hgb 9.5 L Hct 30.1 L MCV MCH MCHC RDW Plt Count MPV Immature Gran % Seg Neutrophils % Band Neutrophils % Lymphocytes % Monocytes % Eosinophils % Basophils % Neutrophils # Lymphocytes # Monocytes # Eosinophils # Basophils # Nucleated RBCs/100 WBC Reactive Lymphocytes Platelet Estimate Large Platelets Immature Plt Fraction Anisocytosis PT INR APTT ABG pH ABG pCO2 ABG pO2 ABG HCO3 ABG Total CO2 ABG O2 Saturation ABG Base Excess Blood Gas Modality Inspired O2 Sodium 139 Potassium 5.5 H Chloride 104 Carbon Dioxide 24 BUN 81 H Creatinine 2.27 H Est GFR ( Amer) 34 L Est GFR (Non-Af Amer) 28 L BUN/Creatinine Ratio 36 H Glucose 156 H POC Glucose Calculated Osmolality 316 H Calcium 8.0 L Phosphorus 5.6 H Magnesium 2.1 Iron 54 L % Saturation 26 Transferrin 146 L Ferritin 808 H Vitamin B12 1850 H Folate 6.4 L Rheumatoid Factor < 15 Specimen Rejected Blood Type Antibody Screen Crossmatch 02/08/17 02/08/17 02/08/17 15:09 15:46 17:12 WBC 23.9 H RBC 2.76 L Hgb 7.9 L D Hct 24.4 L MCV 88.4 MCH 28.6 MCHC 32.4 RDW 17.8 H Plt Count 97 L MPV 11.9 Immature Gran % Seg Neutrophils % 84.0 Band Neutrophils % 6.0 H Lymphocytes % 4.0 Monocytes % 6.0 Eosinophils % Basophils % Neutrophils # 21.5 H Lymphocytes # 1.0 Monocytes # 1.4 H Eosinophils # Basophils # Nucleated RBCs/100 WBC 2.9 H Reactive Lymphocytes Present A Platelet Estimate Decreased L Large Platelets Present A Immature Plt Fraction 11.6 H Anisocytosis 1+ A PT INR APTT ABG pH ABG pCO2 ABG pO2 ABG HCO3 ABG Total CO2 ABG O2 Saturation ABG Base Excess Blood Gas Modality Inspired O2 Sodium Potassium Chloride Carbon Dioxide BUN Creatinine Est GFR ( Amer) Est GFR (Non-Af Amer) BUN/Creatinine Ratio Glucose POC Glucose 159 H 167 H Calculated Osmolality Calcium Phosphorus Magnesium Iron % Saturation Transferrin Ferritin Vitamin B12 Folate Rheumatoid Factor Specimen Rejected Blood Type Antibody Screen Crossmatch Cultures: Cultures 02/07/17 04:35 Blood Culture - Preliminary Peripheral Venipuncture No growth. Serology 02/07/17 02/07/17 Range/Units 15:26 15:26 Ur Eosinophil Smear 0 (None Seen) % Urine Creatinine 158 mg/dL Urine Microalbumin 103 mg/L Microalb/Creat Ratio 65 H (0-30) Protein/Creatinin Ratio 0.41 H (0-0.20) mg/mg Urine Total Protein 65 H (1-14) mg/dL - Impressions Impressions Humerus X-Ray 02/07/17 15:25 IMPRESSION: No acute abnormality in the left shoulder. No acute abnormality in the left humerus. Severe glenohumeral joint osteoarthritis. D/ / 02/07/2017 21:08:26 Christopher Pan MD / [facility] Interpreting Provider: Christopher Pan MD Shoulder X-Ray 02/07/17 15:25 IMPRESSION: No acute abnormality in the left shoulder. No acute abnormality in the left humerus. Severe glenohumeral joint osteoarthritis. D/ / 02/07/2017 21:08:26 Christopher Pan MD / [facility] Interpreting Provider: Christopher Pan MD Ankle X-Ray 02/07/17 15:53 IMPRESSION: Postoperative change of right ankle total arthroplasty. Severe subsidence of the talar component is again noted, without definite evidence of loosening. D/ / 02/07/2017 21:12:21 Pino Olmos MD / [facility] Interpreting Provider: Pino Olmos MD KUB X-Ray 02/08/17 01:20 IMPRESSION: 1. Well-positioned NG tube. D/ / 02/08/2017 04:53:55 [facility]land [facility] Provider: Kiel Kirkland MD Chest X-Ray 02/08/17 01:30 IMPRESSION: 1. Interval present enteric catheter which appears in satisfactory position. 2. Cardiomegaly with pulmonary edema and pleural effusions in keeping with CHF. 3. Hypoinflated lungs. D/ / Amparo Morgan MD / Amparo Morgan MD Interpreting Provider: Amparo Morgan MD X-Ray 02/08/17 08:29 IMPRESSION: Enteric tube present with both tip and side-port in the body of the stomach. D/ / Dave Krishnamurthy MD / Dave Krishnamurthy MD Interpreting Provider: Dave Krishnamurthy MD Exam - Constitutional Vitals: Temp Pulse Resp BP Pulse Ox 97.7 F 73 14 99/66 95 02/08/17 17:10 02/08/17 18:00 02/08/17 18:00 02/08/17 18:00 02/08/17 18:00 General appearance: no febrile Exam: on vent support - Head Head exam: Present: atraumatic, normocephalic - Eye Eye exam: Present: EOMI, PERRL - Neck Additional comments: trachea midline, Intubated no stidor - Respiratory Additional comments: air sounds audible both lung nolasco, some ronchi diffuse both lungs nolasco - Cardiovascular Cardiovascular exam: Present: RRR, +S1, +S2 - GI/Abdominal GI/Abdominal exam: Present: hypoactive bowel sounds, soft. Absent: tenderness - Extremities Exam Extremities exam: Present: normal inspection Consult Discharge Plan - Plan Referrals: Samuel,Yasmani Martin MD [Non-Partnered Physician] - (OFFICE WILL NOT MAKE A FOLLOW UP APPOINTMENT FOR THIS PATIENT UNITL WE HAVE A DISCHARGE ORDER)
--- NOTE | 2017-02-08 18:36 | Procedure Note ---
<Carmelo Parker - Last Filed: 02/08/17 18:34> Date of procedure: 02/08/17 Pre-op diagnosis: septic shock Post-op diagnosis: same Procedure: Procedure Note: Right IJ Central Venous Catheter Insertion Indication: Sepsis Attending Physician: Dr. Mcneal Fastener Technologist: Carmelo Parker Indication: This is a 77 year-old male with septic shock. Consent: Detailed explanation of the procedure, treatment options, risks including but not limited to infection and bleeding, and benefits were explained to the patient's daughter. A written informed consent was obtained. Technique: A time out was preformed identifying the correct procedure, the correct location with the nursing staff. The right neck was prepped with 2% chlorhexidine and draped with a full length sterile sheet in the usual fashion. The right IJ vein was accessed under ultrasound guidance with an 18 gauge thin wall needle. A triple lumen was inserted via the seldinger technique. Blood was withdrawn from all lumens and flushed with normal saline. The catheter was sutured in place and a sterile dressing was applied over the site prior to removal of drapes. The patient tolerated the procedure well and there were no complications. The attending physician Dr. Mcneal was present during the procedure. Chest x ray confirmed proper positioning of the catheter. EBL: minimal Complication: None Anesthesia: local Surgeon: Carmelo Parker Bale Coverer: Mariano Hamilton IV fluids (cc): 1 Pathology: none sent Condition: stable Disposition: ICU <Cruz Mcneal - Last Filed: 02/10/17 18:40> Procedure: I examined this patient and my medical decision-making was reviewed with the ENGRAVER [employer]/PA/Advanced Practice Nurse/Resident Physician. I agree with the documented findings, disposition and treatment plan as described except to the extent set forth below. i was present during procedure
[2017-02-08 18:51] LABS: ABG Base Excess 2.5 mEq/L (-2.0 to 3.0); ABG HCO3 29.2 mEQ/L (21-27); ABG Oxygen Saturation 96 % (95-98); ABG PCO2 58 mmHg (35-45); ABG PH 7.31 pH Units (7.32-7.45); ABG PO2 88 mmHg (85-104)
[2017-02-08 18:52] LABS: Blood Gas FiO2 50 %; Blood Gas PEEP 5 cm H2O; Blood Gas Respiration Rate 12; Blood Gas VT 500 cc
[2017-02-08] MEDS: FentaNYL (PF) 1,000 MCG in 0.9 % Sodium Chloride 80 ML IVC SCH (18:52)
[2017-02-08 19:23] LABS: Nucleated Red Blood Cells 3.1 /100 WBC (0)
[2017-02-08] MEDS ORDERED: *HR* EPINEPHrine 1 MG/10 ML SYRINGE ONE (19:23)
[2017-02-08 19:25] LABS: Hematocrit 25.1 % (37.5-50.1); Immature Platelets 7.8 % (1.1-6.1); Mean Corpuscular HGB Conc 31.9 g/dL (31.6-35.5); Mean Corpuscular Hemoglobin 28.5 pg (28.0-33.3); Mean Corpuscular Volume 89.3 fL (83.0-100.0); Red Blood Count 2.81 M/mcL (4.19-5.50); Red Cell Distribution Width 17.4 % (11.5-14.5)
[2017-02-08 19:28] LABS: INR 1.6; Prothrombin Time 17.5 Seconds (9.4-12.1)
[2017-02-08 19:38] LABS: Albumin/Globulin Ratio 0.6 (1.1-2.2); Bilirubin,Total 2.3 mg/dL (0.2-1.2); Potassium 5.8 mEq/L (3.5-4.5)
[2017-02-08 19:40] LABS: Albumin 1.7 g/dL (3.5-5.0); Total Protein 4.7 g/dL (6.0-8.3)
[2017-02-08 19:49] LABS: Platelet Count 85 K/mcL (140-400)
[2017-02-08 19:53] LABS: Hypochromasia Present (Not Present); Lymphocytes # 0.8 K/mcL (0.6-4.6); Neutrophils # 18.4 K/mcL (1.6-8.9); Platelet Estimate Decreased (Normal)
[2017-02-08 19:54] LABS: Anisocytosis 1+ (Not Present)
[2017-02-08] MEDS ORDERED: Calcium Gluconate 2,000 MG in D5% in Water 100 ML IVPB ONE (20:09)
[2017-02-08] MEDS ORDERED: Albuterol 2.5 MG/3 ML NEBULIZER IH ONE (20:12)
[2017-02-08] MEDS: Norepinephrine 4 MG in D5% in Water 250 ML IVC SCH (20:13)
[2017-02-08] MEDS: Chlorhexidine Rinse 15 ML MOUTHWASH MM SCH (20:14)
[2017-02-08] MEDS: Lacri-Lube 3.5 GM TUBE BOTH EYES SCH (20:44)
[2017-02-08] MEDS: Dexmedetomidine HCl 400 MCG/100 ML MLS IVC SCH (23:14)
[2017-02-08 23:22] LABS: Hematocrit 27.5 % (37.5-50.1); Hemoglobin 8.8 g/dL (12.9-16.9)
[2017-02-09] MEDS: Lacri-Lube 3.5 GM TUBE BOTH EYES SCH ×6 (00:27→19:41)
[2017-02-09] MEDS: Insulin LISPRO 300 UNITS/3 ML VIAL SQ SCH ×4 (00:30→19:05)
[2017-02-09] MEDS: Pantoprazole 40 MG in 0.9 % Sodium Chloride Mini Bag 100 ML IVC SCH ×4 (00:35→19:00)
[2017-02-09 01:25] LABS: Potassium 5.4 mEq/L (3.5-4.5)
[2017-02-09 03:02] LABS: Hematocrit 27.7 % (37.5-50.1); Hemoglobin 9.1 g/dL (12.9-16.9)
[2017-02-09] MEDS: FentaNYL (PF) 1,000 MCG in 0.9 % Sodium Chloride 80 ML IVC SCH ×2 (03:31→14:56)
[2017-02-09 03:45] LABS: Basophils % 0.1 %; Hematocrit 27.7 % (37.5-50.1); Hemoglobin 9.1 g/dL (12.9-16.9); Immature Granulocytes % 4.1 % (0-4); Immature Platelets 7.3 % (1.1-6.1); Lymphocytes # 1.7 K/mcL (0.6-4.6); Mean Corpuscular HGB Conc 32.9 g/dL (31.6-35.5); Mean Corpuscular Hemoglobin 28.3 pg (28.0-33.3); Mean Corpuscular Volume 86.3 fL (83.0-100.0); Mean Platelet Volume 11.3 fL (9.4-12.4); Monocytes # 1.8 K/mcL (0.0-1.3); Monocytes % 8.4 %; Neutrophils # 17.2 K/mcL (1.6-8.9); Nucleated Red Blood Cells 5.2 /100 WBC (0); Platelet Count 112 K/mcL (140-400); Red Blood Count 3.21 M/mcL (4.19-5.50); Red Cell Distribution Width 16.4 % (11.5-14.5); Segmented Neutrophils % 79.4 %
[2017-02-09 03:57] LABS: Ionized Calcium 1.14 mmol/L (1.15-1.35)
[2017-02-09 04:04] LABS: Albumin/Globulin Ratio 0.6 (1.1-2.2); Bilirubin,Total 2.5 mg/dL (0.2-1.2); Calcium 8.2 mg/dL (8.6-10.8); Globulin 3.1 g/dL (2.4-3.5); Magnesium 2.2 mg/dL (1.6-2.6); Potassium 5.1 mEq/L (3.5-4.5); Total Protein 4.9 g/dL (6.0-8.3)
[2017-02-09 04:05] LABS: Albumin 1.8 g/dL (3.5-5.0)
[2017-02-09 05:04] LABS: ABG Base Excess 1.5 mEq/L (-2.0 to 3.0); ABG HCO3 27.2 mEQ/L (21-27); ABG Oxygen Saturation 87 % (95-98); ABG PCO2 47 mmHg (35-45); ABG PH 7.37 pH Units (7.32-7.45); ABG PO2 55 mmHg (85-104); ABG TCO2 28.6 mEq/L (20-26)
[2017-02-09 05:07] LABS: Blood Gas FiO2 35 %; Blood Gas PEEP 5 cm H2O; Blood Gas Respiration Rate 16; Blood Gas VT 500 cc
[2017-02-09] MEDS: Penicillin G Potassium 4,000,000 UNIT in D5% in Water 100 ML IVPB SCH ×3 (05:15→19:02)
--- NOTE | 2017-02-09 06:58 | Pulmonology Progress Note ---
Date of Encounter: 02/09/17 Time of Encounter: 06:56 Assessment and Plan (1) Shock Current Visit: Yes Status: Acute likely multifactorial in nature in setting of septic shock with group A strep bacteremia, hemorrhagic/hypovolemic shock, complicated by cardiomyopathy with EF 20-25% EGD from 02/08/17 showed 4cm bleeding duodenal ulcer, had clip placed and injection with epinephrine. In total, patient received 5 units prbc, one unit of platelets. currently Hg is 9.1, INR 1.5 Plan: will monitor H/H q6H, transfuse blood as needed protonix drip appreciate GI recommendations. surgery consulted because the bleeding duodenal ulcer may be purulent in nature. CT A/P showed no signs of abscess. continue with penicillin G and clindamycin and probiotics per ID recommendations. will get CT head later today in setting of unexplained altered mental status. (2) Sepsis Current Visit: Yes Status: Acute Septic shock likely secondary to cellulitis on lower extremities. CT RLE showed severe diffuse b/l LE Subcu fat stranding and skin thickening, no drainable fluid collection, no osseous abnormality, no gas. CT left lower extremity showed no osseous abnormality, no focal gas. Blood cultures showed group A strep wound cultures showed providencia rettgeri, group A strep, gram positive cocci repeat blood cultures pending. Plan: may need LAST if repeat cultures are positive. continue with ABX per ID recommendations. continue Levophed and wean off as tolerated. Qualifiers: Sepsis type: sepsis due to unspecified organism Qualified Code(s): A41.9 - Sepsis, unspecified organism (3) Anemia Current Visit: Yes Status: Acute plan as #1 above Qualifiers: Anemia type: iron deficiency Iron deficiency anemia type: chronic blood loss Qualified Code(s): D50.0 - Iron deficiency anemia secondary to blood loss (chronic) (4) Acute respiratory failure with hypoxia and hypercapnia Current Visit: Yes Status: Acute likely multifactorial in setting of aspiration, acute CHF. FIO2: 50%, Tv: 500 PEEP: 5 Continue with repeat ABG and mechanical ventilation: (5) SAGE (acute kidney injury) Current Visit: Yes Status: Acute Cr today was 2.62. baseline is around 1.5. GFR currently 24, was above 60 on year ago, possibly a component of CKD. Etiology likely pre-renal azotemia in setting of sepsis and cardiomyopathy. Plan: appreciate nephrology recs will monitor urine output renally dose meds, avoid nephrotoxic agents. plan for permacath placement today with possible dialysis tomorrow if no improvement. (6) Cardiomyopathy Current Visit: Yes Status: Acute Echo from 02/06/17 showed LVEF 20-25%, severe global LV systolic dysfunction, mild concentric LVH, severely dilated Left atrium, no pulmonary HTN, severely dialted right atrium, diastolic dysfunction. he has no prior echo to compare, but had a stress test in 2009 with gated EF 58% elevated troponin levels, trended down, likely secondary to sepsis but ischemic cause cannot be ruled out. patient was evaluated by cardio, they recommend LHC during stay to evaluate for possible ischemic cardiomyopathy if clinical course allows. Cardiology has Recommend medical management for now. according to tele, he has multiple episodes of ectopy, appreciate cardiology recs. Qualifiers: Cardiomyopathy type: unspecified Qualified Code(s): I42.9 - Cardiomyopathy , unspecified (7) Pacemaker Current Visit: Yes Status: Acute patient has dual chamber pacemaker in place, last interrogated in 2014. (8) Acute systolic heart failure Current Visit: Yes Status: Acute BNP 2958 Echo showed EF 20-25% with severe global LV systolic dysfunction. Upon initial presentation, he was fluid overloaded. initial CXR showed trace pleural effusions. plan: currently lasix on hold due to SAGE and hypovolemi/hemorrhagic shock in setting of sepsis. strict I/O, daily weights. (9) A-fib Current Visit: Yes Status: Chronic per cardio records, bridget was unaware of Afib, but he had Afib on his previous device checks. no BB due to hypotension. CHAds/vasc: 6 (age, CHF, HTN, CAD, DM) no anticoagulation at this time due to GI bleed. Qualifiers: Atrial fibrillation type: chronic Qualified Code(s): I48.2 - Chronic atrial fibrillation (10) CAD (coronary artery disease) Current Visit: Yes Status: Chronic per prior notes, bridget has hx of 4 stents, this information needs to be verified with family. Qualifiers: Coronary Disease-Associated Artery/Lesion type: [place] artery [place] vs. transplanted heart: [place] heart Associated angina: without angina Qualified Code(s): I25.10 - Atherosclerotic heart disease of [place] coronary artery without angina pectoris (11) Diabetes mellitus Current Visit: Yes Status: Chronic A1C 6.9 continue low dose sliding scale insulin. Qualifiers: Diabetes mellitus type: type 2 Diabetes mellitus complication status: with unspecified complications Diabetes mellitus custodial insulin use: without custodial use Qualified Code(s): E11.8 - Type 2 diabetes mellitus with unspecified complications (12) DVT prophylaxis Current Visit: Yes Status: Acute cannot do EPCDs because of bilateral lower extremity cellulitis, will hold off for now. Subjective Principal diagnosis: GI bleed, Sepsis, acute systolic CHF. Interval history: 77 year old male evaluated at bedside. he remains intubated and sedation, and is not following commands. he does not appear to be in any acute distress. Objective PUL Vital signs: Last Vital Signs Temp 98.2 F 02/09/17 04:16 Pulse 67 02/09/17 06:00 Resp 16 02/09/17 06:00 BP 97/52 02/09/17 06:00 Pulse Ox 96 02/09/17 06:00 General appearance: no acute distress, other (sedated) Eyes: nonicteric ENT: oropharynx dry Auscultation: bilateral: rales Cardiovascular: PVC's noted (multiple ectopic beats. ), other Gastrointestinal: normoactive bowel sounds, soft, non-tender Integumentary: cellulitis (bilateral lower extremity cellulitis) Extremities: other (left second toe appears necrotic. ) unable to assess due to mental status other (sedated. ) Ventilator Settings Ventilator Settings: Ventilator Settings, Last 8 Hours Ventilator Mode VC+ Ventilator Mode VC+ Ventilator Mode VC+ Ventilator Mode VC+ Ventilator Mode VC+ Ventilator Mode VC+ Ventilator Mode VC+ Ventilator Mode VC+ Ventilator Mode VC+ Ventilator Mode VC+ Ventilator Mode VC+ Ventilator Mode VC+ Ventilator Tidal Volume 500 Setting Ventilator Tidal Volume 500 Setting Ventilator Tidal Volume 500 Setting Ventilator Tidal Volume 500 Setting Ventilator Tidal Volume 500 Setting Ventilator Tidal Volume 500 Setting Ventilator Tidal Volume 500 Setting Ventilator Tidal Volume 500 Setting Ventilator Tidal Volume 500 Setting Ventilator Tidal Volume 500 Setting Ventilator Tidal Volume 500 Setting Ventilator Tidal Volume 500 Setting Ventilator Respiratory Rate 16 Setting Ventilator Respiratory Rate 16 Setting Ventilator Respiratory Rate 16 Setting Ventilator Respiratory Rate 16 Setting Ventilator Respiratory Rate 16 Setting Ventilator Respiratory Rate 16 Setting Ventilator Respiratory Rate 16 Setting Ventilator Respiratory Rate 16 Setting Ventilator Respiratory Rate 16 Setting Ventilator Respiratory Rate 16 Setting Ventilator Respiratory Rate 16 Setting Ventilator Respiratory Rate 16 Setting Actual Respiratory Rate 16 Actual Respiratory Rate 16 Actual Respiratory Rate 16 Positive End Expiratory 5 Pressure Positive End Expiratory 5 Pressure Positive End Expiratory 5 Pressure Positive End Expiratory 5 Pressure Positive End Expiratory 5 Pressure Positive End Expiratory 5 Pressure Positive End Expiratory 5 Pressure Positive End Expiratory 5 Pressure Positive End Expiratory 5 Pressure Positive End Expiratory 5 Pressure Positive End Expiratory 5 Pressure Positive End Expiratory 5 Pressure Peak Inspiratory Airway 22 Pressure Peak Inspiratory Airway 22 Pressure Peak Inspiratory Airway 21 Pressure Results - Laboratory Findings CBC and BMP: 02/09/17 06:50 02/09/17 03:37 ABG ABG pH 7.37 pH Units (7.32-7.45) 02/09/17 04:42 ABG pCO2 47 mmHg (35-45) H 02/09/17 04:42 ABG pO2 55 mmHg (85-104) L 02/09/17 04:42 ABG O2 Saturation 87 % (95-98) L 02/09/17 04:42 PT/INR, D-dimer PT 17.5 Seconds (9.4-12.1) H 02/08/17 19:11 Abnormal lab findings: Abnormal lab results WBC 21.7 K/mcL (4.3-11.1) H 02/09/17 03:37 RBC 3.21 M/mcL (4.19-5.50) L 02/09/17 03:37 Hgb 9.1 g/dL (12.9-16.9) L 02/09/17 03:37 Hct 27.7 % (37.5-50.1) L 02/09/17 03:37 RDW 16.4 % (11.5-14.5) H 02/09/17 03:37 Plt Count 112 K/mcL (140-400) L 02/09/17 03:37 Immature Gran % 4.1 % (0-4) H 02/09/17 03:37 Band Neutrophils % 8.0 % (0-4) H 02/08/17 19:11 Metamyelocytes % 2.0 % (0) H 02/08/17 19:11 Neutrophils # 17.2 K/mcL (1.6-8.9) H 02/09/17 03:37 Monocytes # 1.8 K/mcL (0.0-1.3) H 02/09/17 03:37 Nucleated RBCs/100 WBC 5.2 /100 WBC (0) H 02/09/17 03:37 Reactive Lymphocytes Present (Not Present) A 02/08/17 15:46 Platelet Estimate Decreased (Normal) L 02/08/17 19:11 Large Platelets Present (Not Present) A 02/08/17 15:46 Immature Plt Fraction 7.3 % (1.1-6.1) H 02/09/17 03:37 Polychromasia 1+ (Not Present) A 02/07/17 04:35 Hypochromasia Present (Not Present) A 02/08/17 19:11 Anisocytosis 1+ (Not Present) A 02/08/17 19:11 ESR 71 mm/hr (0-10) H 02/07/17 16:02 PT 17.5 Seconds (9.4-12.1) H 02/08/17 19:11 APTT 40.8 Seconds (26.0-36.0) H 02/08/17 00:45 ABG pCO2 47 mmHg (35-45) H 02/09/17 04:42 ABG pO2 55 mmHg (85-104) L 02/09/17 04:42 ABG HCO3 27.2 mEQ/L (21-27) H 02/09/17 04:42 ABG Total CO2 28.6 mEq/L (20-26) H 02/09/17 04:42 ABG O2 Saturation 87 % (95-98) L 02/09/17 04:42 Potassium 5.1 mEq/L (3.5-4.5) H 02/09/17 03:37 BUN 99 mg/dL (8-26) H 02/09/17 03:37 Creatinine 2.59 mg/dL (0.72-1.25) H 02/09/17 03:37 Est GFR ( Amer) 29 (> 60) L 02/09/17 03:37 Est GFR (Non-Af Amer) 24 (> 60) L 02/09/17 03:37 BUN/Creatinine Ratio 38 (6-26) H 02/09/17 03:37 Glucose 164 mg/dL (70-99) H 02/09/17 03:37 POC Glucose 149 (58-89) H 02/09/17 05:11 Hemoglobin A1c 6.9 % (-5.6) H 02/06/17 06:18 Calculated Osmolality 324 (280-300) H 02/09/17 03:37 Calcium 8.2 mg/dL (8.6-10.8) L 02/09/17 03:37 Ionized Calcium 1.14 mmol/L (1.15-1.35) L 02/09/17 03:37 Phosphorus 5.0 mg/dL (2.3-4.7) H 02/09/17 03:37 Iron 54 mcg/dL (65-175) L 02/08/17 06:39 Transferrin 146 mg/dL (174-364) L 02/08/17 06:39 Ferritin 808 ng/ml (22-275) H 02/08/17 06:39 Total Bilirubin 2.5 mg/dL (0.2-1.2) H 02/09/17 03:37 Direct Bilirubin 1.3 mg/dL (0.0-0.5) H 02/07/17 04:35 AST 64 Units/L (5-34) H 02/09/17 03:37 Troponin I 0.24 ng/mL (0-0.03) H* 02/06/17 18:39 C-Reactive Protein 248 mg/L (Less than 5) H 02/07/17 16:02 B-Natriuretic Peptide 2958 pg/mL (0-100) H 02/05/17 23:05 Serum Total Protein 4.9 g/dL (6.0-8.3) L 02/09/17 03:37 Albumin 1.8 g/dL (3.5-5.0) L 02/09/17 03:37 Albumin/Globulin Ratio 0.6 (1.1-2.2) L 02/09/17 03:37 HDL Cholesterol 16 mg/dL (40-59) L 02/06/17 06:18 Cholesterol/HDL Ratio 6.7 (0-4.9) H 02/06/17 06:18 Vitamin B12 1850 pg/mL (213-816) H 02/08/17 06:39 Folate 6.4 ng/mL (7.0-31.4) L 02/08/17 06:39 Urine Color [place] (Yellow) A 02/06/17 00:49 Urine Clarity Cloudy (Clear) A 02/06/17 00:49 Ur Specific [place] 1.026 (1.010-1.025) H 02/06/17 00:49 Urine Protein 100 mg/dL (Neg-Trace) H 02/06/17 00:49 Urine Ketones Trace mg/dL (Negative) H 02/06/17 00:49 Urine Blood Moderate (Negative) H 02/06/17 00:49 Urine Bilirubin Moderate (Negative) H 02/06/17 00:49 Ur Leukocyte Esterase Small (Negative) H 02/06/17 00:49 Urine Microscopic RBC 5-15 per hpf (0-3) H 02/06/17 00:49 Urine Microscopic WBC 5-15 per hpf (0-3) H 02/06/17 00:49 Ur Squamous Epith Cells Many per lpf (None-Few) H 02/06/17 00:49 Ur Culture Indicated? YES (NO) A 02/06/17 00:49 Microalb/Creat Ratio 65 (0-30) H 02/07/17 15:26 Protein/Creatinin Ratio 0.41 mg/mg (0-0.20) H 02/07/17 15:26 Urine Total Protein 65 mg/dL (1-14) H 02/07/17 15:26 Streptococcus sp PCR DETECTED (Not Detect) A 02/05/17 23:06 Group A Strep DNA DETECTED (Not Detect) A 02/05/17 23:06 - Microbiology Findings Microbiology Findings: Microbiology, Last 48 Hours 02/08/17 06:45 Blood Culture - Preliminary Peripheral Venipuncture No growth. 02/08/17 06:39 Blood Culture - Preliminary Peripheral Venipuncture No growth. 02/07/17 04:35 Blood Culture - Preliminary Peripheral Venipuncture No growth. - Clinical Findings Intake & Output: Intake & Output 02/08/17 02/08/17 02/09/17 15:59 23:59 07:59 Intake Total 450 / 450 1566 / 1566 939 / 939 Output Total 1150 / 1150 150 / 150 625 / 625 Balance -700 / -700 1416 / 1416 314 / 314 Weight 132.5 kg Consult Discharge Plan - Plan Referrals: Yasmani Baker MD [Non-Partnered Physician] - (OFFICE WILL NOT MAKE A FOLLOW UP APPOINTMENT FOR THIS PATIENT UNITL WE HAVE A DISCHARGE ORDER)
[2017-02-09 07:05] LABS: Hematocrit 25.7 % (37.5-50.1); Hemoglobin 8.7 g/dL (12.9-16.9)
[2017-02-09 07:08] LABS: Myeloperoxidase Ab 4 AU/mL (0-19); Serine Protease-3 Antibody 0 AU/mL (0-19)
[2017-02-09 07:42] LABS: INR 1.5; Prothrombin Time 16.7 Seconds (9.4-12.1)
[2017-02-09] MEDS: Chlorhexidine Rinse 15 ML MOUTHWASH MM SCH ×2 (08:10→21:19)
[2017-02-09] MEDS: Clindamycin 600 MG/50 ML 600 MG/50 ML IV.SOLN IVPB SCH ×2 (08:10→19:03)
[2017-02-09] MEDS: Lactobacillus 1 EACH CAP.SPRINK PO SCH (08:10)
--- NOTE | 2017-02-09 08:55 | Cardiology Progress Note ---
Date of Encounter: 02/09/17 Time of Encounter: 08:54 Assessment and Plan (1) Elevated troponin level Current Visit: Yes Status: Acute Likely 2/2 Demand ischemia from septic shock - adynamic changes (peak 0.25, 0.24) - transfuse to maintain Hgb >8 for CAD/CHF hx. - re-evaluate for possible LHC if stabilized - Cardiology will sign off at this time, please reconsult prior to discharge for re-evaluation (2) CHF (congestive heart failure) Current Visit: Yes Status: Acute Echo done on 02/06/17 shows LVEF 20-25%, severe LV systolic dysfunction, severe left atrial dilation, severe right atrial dilation. - Consider restarting beta-randolph and YEHUDA once BP and renal function improve Qualifiers: Congestive heart failure type: unspecified congestive heart failure type Congestive heart failure chronicity: chronic Qualified Code(s): I50.9 - Heart failure, unspecified (3) CAD (coronary artery disease) Current Visit: Yes Status: Chronic Hx of CAD with stent (unknown date)- no prior LHC on record here. - Previously on plavix 75mg, aspirin 81mg, lisinopril 10mg, HCTZ 12.5 mg, Metoprolol 25 mg BID, Atorvastatin 80mg. Has not seen a PCP or taken his medications in years. - L heart cath when able - Continue Lipitor 40mg; Restart ASA 81mg when able. Qualifiers: Coronary Disease-Associated Artery/Lesion type: [place] artery [place] vs. transplanted heart: [place] heart Associated angina: without angina Qualified Code(s): I25.10 - Atherosclerotic heart disease of [place] coronary artery without angina pectoris (4) Cardiomyopathy Current Visit: Yes Status: Acute LVEF 20-25%. Will need LHC to evaluate drop in EF. Previously 55% on a stress test. Qualifiers: Cardiomyopathy type: unspecified Qualified Code(s): I42.9 - Cardiomyopathy , unspecified (5) A-fib Current Visit: Yes Status: Chronic Currently rate controlled. Does have multiple ectopic PVCs on the monitor, followed by paced beats. - EKG ordered - If episode of V tach >150 bpm, consider starting amiodarone. - Continue to hold anticoagulation until okay per GI. Qualifiers: Atrial fibrillation type: chronic Qualified Code(s): I48.2 - Chronic atrial fibrillation Discussion w patient/family: The assessment and plan as outlined above was discussed with the patient and/or family members who expressed understanding and agreement. All questions were answered. Thank you for involving us in the care of your patient. Please call with any questions. Subjective Principal diagnosis: GI bleed, Sepsis, acute systolic CHF. Interval history: Pt is intubated, sedated, appears comfortable during my exam. Does not respond to verbal stimulation. Pt now on levophed and still hypotensive with BP 85/48. Objective Vital Signs, Last 4 Hours Temp Pulse Resp BP Pulse Ox 02/09/17 08:00 69 16 85/48 97 02/09/17 07:37 66 02/09/17 07:32 16 97 02/09/17 07:00 97.8 F 66 16 81/51 97 02/09/17 06:00 67 16 97/52 96 02/09/17 05:37 16 96 02/09/17 05:11 73 17 87/46 93 General: Other (intubated, sedated on fentanyl) HEENT: Atraumatic, Mucus Membranes Moist Neck: No JVD Cardiac: No Murmur, Other (paced rhythm, multiple PVCs) Lungs: Normal Breath Sounds, No Wheeze, Rales, Rhonchi Neuro: Other (unable to assess) Abdomen: Soft, Non-Tender Skin: No rashes noted on visualized skin Musculoskeletal: No Chest Wall Tenderness Extremities: No Edema, Normal Pulses Results 02/09/17 06:50 02/09/17 03:37 Lab Results 02/08/17 02/08/17 02/08/17 00:45 10:41 15:46 WBC 18.3 H 23.9 H Hgb 9.5 L 7.9 L D Hct 30.1 L 24.4 L Plt Count 97 L INR Sodium Potassium Chloride Carbon Dioxide BUN Creatinine Glucose Calcium Magnesium Total Bilirubin AST ALT Alkaline Phosphatase 02/08/17 02/08/17 02/08/17 19:11 19:11 19:11 WBC 19.6 H Hgb 8.0 L Hct 25.1 L Plt Count 85 L INR 1.6 Sodium 139 Potassium 5.8 H Chloride 104 Carbon Dioxide 27 BUN 93 H Creatinine 2.57 H Glucose 156 H Calcium 8.0 L Magnesium Total Bilirubin 2.3 H AST 78 H ALT 43 Alkaline Phosphatase 87 02/08/17 02/09/17 02/09/17 22:57 00:56 02:54 WBC Hgb 8.8 L 9.1 L Hct 27.5 L 27.7 L Plt Count INR Sodium 139 Potassium 5.4 H Chloride 105 Carbon Dioxide 26 BUN 101 H Creatinine 2.62 H Glucose 184 H Calcium 8.0 L Magnesium Total Bilirubin AST ALT Alkaline Phosphatase 02/09/17 02/09/17 02/09/17 03:37 03:37 06:50 WBC 21.7 H Hgb 9.1 L 8.7 L Hct 27.7 L 25.7 L Plt Count 112 L INR Sodium 140 Potassium 5.1 H Chloride 105 Carbon Dioxide 27 BUN 99 H Creatinine 2.59 H Glucose 164 H Calcium 8.2 L Magnesium 2.2 Total Bilirubin 2.5 H AST 64 H ALT 41 Alkaline Phosphatase 87 02/09/17 07:25 WBC Hgb Hct Plt Count INR 1.5 Sodium Potassium Chloride Carbon Dioxide BUN Creatinine Glucose Calcium Magnesium Total Bilirubin AST ALT Alkaline Phosphatase - Imaging and Cardiology Chest Xray: report reviewed Echo: report reviewed - EKG Interpretation EKG results cardiology: personally reviewed (EKG done on 02/05/2017 at 2310 shows atrial fibrillation with a rate of 99 bpm. Occasional PVCs. Left axis deviation. Right bundle branch block present. No acute ST elevation or depression.) Consult Discharge Plan - Plan Referrals: Yasmani Baker MD [Non-Partnered Physician] - (OFFICE WILL NOT MAKE A FOLLOW UP APPOINTMENT FOR THIS PATIENT UNITL WE HAVE A DISCHARGE ORDER)
[2017-02-09] MEDS ORDERED: Calcium Gluconate 1,000 MG in D5% in Water 100 ML IVPB ONE (10:42)
--- NOTE | 2017-02-09 10:56 | Infectious Disease Progress No ---
Date of Encounter: 02/09/17 Time of Encounter: 10:54 - Assessment and Plan (1) Shock Current Visit: Yes Status: Acute Hemorrhagic vs. septic. Patient currently requiring low-dose levophed to maintain adequate MAP. (2) Severe sepsis Current Visit: Yes Status: Acute The patient had two SIRS criteria plus SAGE, lactic acidosis, and bandemia. Likely secondary to bacteremia and RLE cellulitis. Improved. WBC worse today, but could be reactive from gross GI bleed. Tachycardia has improved. Lactic acid level is back to normal. Blood cultures drawn 02/05/17 are positive 2/2 sets for GAS. Repeat blood cultures x 2 sets drawn 02/08/17 are NGTD. (3) Bacteremia Current Visit: Yes Status: Acute Causative organism GAS. Source likely RLE cellulitis. Blood cultures drawn 02/05/17 are positive 2/2 sets for GAS. Complicated due to the presence of hardware and pacemaker. No endocarditis stigmata noted on exam. Low index of suspicion for IE. TTE negative for valvular vegetations. Continue Clindamycin 600mg IV Q8H. Continue PCN 4 million units IV Q4H. Continue probiotic BID. Await repeat blood cultures to finalize. Duration of treatment depends on the clinical picture. (4) Cellulitis Current Visit: Yes Status: Acute Although the patient does have erythema to the BLE, I believe that the LLE erythema is more likely secondary to venous stasis dermatitis rather than an acute infection. Likely secondary to venous stasis ulcers. Wound culture of the RLE ulcer positive for Providencia, GAS, and GPC ( presumptively Staph species). CT of the BLE shows evidence of skin thickening of the BLE consistent with cellulitis vs. lymphedema. 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 There is no abscess or evidence of osteomyelitis. Podiatry consulted. Discussed CT findings with Dr. De Santiago re: subsidence of the hardware. Due to motion artifact on the CT, recommends plain film x-rays to evaluate for loosening. X-ray again shows subsidence, but no obvious loosening. Await Podiatry's recommendations. ESR and CRP are elevated. Continue antibiotics as above. Consult wound care team for wound care recommendations. Duration of treatment depends on the clinical picture. Monitor renal function and dose-adjust antibiotics. Qualifiers: Site of cellulitis: extremity Site of cellulitis of extremity: lower extremity Laterality: right Qualified Code(s): L03.115 - Cellulitis of right lower limb (5) SAGE (acute kidney injury) Current Visit: Yes Status: Acute Etiology unclear: SAGE on CKD vs. sepsis vs. other. Nephrology consulted and following. Renal and bladder UTS non-revealing. Management per the nephrology and primary teams. Dose-adjust antibiotics based on creatinine clearance. (6) Lactic acidosis Current Visit: Yes Status: Resolved Likely secondary to sepsis. Resolved. (7) Hematemesis with nausea Current Visit: Yes Status: Acute Secondary to GI bleed. Status post EGD 02/08/[address] Phan. Large ulcer noted during EGD that required epinephrine and placement of clip. Continues to have blood from the OGt. Further management per the GI team. (8) Back pain Current Visit: Yes Status: Acute Secondary to DDD. CT of the C-spine and L-spine completed. Results reviewed. No infectious etiology identified. Qualifiers: Back pain location: low back pain Chronicity: chronic Back pain laterality: midline Sciatica presence: without sciatica Qualified Code(s): M54.5 - Low back pain; G89.29 - Other chronic pain (9) Elevated troponin level Current Visit: Yes Status: Acute Likely demand ischemia secondary to sepsis. Cardiology consulted and following. (10) Acute respiratory failure with hypoxia and hypercapnia Current Visit: Yes Status: Acute Likely secondary to fluid overload from large amount of IVF and blood products on top of CHF. Continues to require full ventilatory support. Pulmonology team consulted and following. (11) GI bleeding Current Visit: Yes Status: Acute Status post EGD 02/08/[address] Phan. Large duodenal ulcer noted requiring epi and hemostasis clip. Continues to have grossly blood stool and OGT drainage. Hgb stable after multiple blood products. Management per the GI team. 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 Status post transfusion of 5 units PRBCs with additional plasma and platelets as well. Hgb stable around 8. Management per the primary team. Qualifiers: Anemia type: iron deficiency Iron deficiency anemia type: chronic blood loss Qualified Code(s): D50.0 - Iron deficiency anemia secondary to blood loss (chronic) (14) Thrombocytopenia Current Visit: Yes Status: Acute (15) A-fib Current Visit: Yes Status: Chronic Qualifiers: Atrial fibrillation type: chronic Qualified Code(s): I48.2 - Chronic atrial fibrillation (16) CAD (coronary artery disease) Current Visit: Yes Status: Chronic Qualifiers: Coronary Disease-Associated Artery/Lesion type: [place] artery [place] vs. transplanted heart: [place] heart Associated angina: without angina Qualified Code(s): I25.10 - Atherosclerotic heart disease of [place] coronary artery without angina pectoris (17) CHF (congestive heart failure) Current Visit: Yes Status: Acute ECHO shows EF 20-25%. Cardiology consulted and following. Qualifiers: Congestive heart failure type: unspecified congestive heart failure type Congestive heart failure chronicity: chronic Qualified Code(s): I50.9 - Heart failure, unspecified (18) Diabetes mellitus Current Visit: Yes Status: Chronic Recommend aggressive glucose monitoring and control. Management per the primary team's recommendations. Qualifiers: Diabetes mellitus type: type 2 Diabetes mellitus complication status: with unspecified complications Diabetes mellitus group home insulin use: without group home use Qualified Code(s): E11.8 - Type 2 diabetes mellitus with unspecified complications - Subjective Interval history: Patient seen and examined. Acute events of yesterday noted. Patient status post EGD yesterday that noted to have a large duodenal ulcer that required epinephrine injection and clip placement. Additionally, the patient suffered respiratory distress after the EGD and required intubation. He remains sedated on the ventilator. He has also requiring low dose vasopressors at this time. She continues to have gross blood from his OG tube and his rectal tube. He has received a total of 5 units of packed red cells, 2 plasma, and 1 platelets. His hemoglobin remains at 8.7. No other new issues per nursing. No family is currently at the bedside. Infect Dis PN-Objective Data - Labs CBC & Chem 7: 02/10/17 12:00 02/10/17 03:10 Labs: Laboratory Results - last 24 hr 02/07/17 02/08/17 02/08/17 12:30 00:45 00:52 WBC 18.3 H RBC Hgb Hct MCV MCH MCHC RDW Plt Count MPV Immature Gran % Seg Neutrophils % Band Neutrophils % Lymphocytes % Monocytes % Eosinophils % Basophils % Metamyelocytes % Neutrophils # Lymphocytes # Monocytes # Eosinophils # Basophils # Nucleated RBCs/100 WBC Reactive Lymphocytes Platelet Estimate Large Platelets Immature Plt Fraction Hypochromasia Anisocytosis PT INR ABG pH ABG pCO2 ABG pO2 ABG HCO3 ABG Total CO2 ABG O2 Saturation ABG Base Excess Respiration Rate Blood Gas Modality Inspired O2 Tidal Volume PEEP Sodium Potassium Chloride Carbon Dioxide BUN Creatinine Est GFR ( Amer) Est GFR (Non-Af Amer) BUN/Creatinine Ratio Glucose POC Glucose Calculated Osmolality Lactic Acid Calcium Ionized Calcium Phosphorus Magnesium Total Bilirubin AST ALT Alkaline Phosphatase Serum Total Protein Albumin Globulin Albumin/Globulin Ratio Myeloperoxidase Ab 4 Serine Protease 3 Ab 0 Blood Type A POSITIVE Antibody Screen NEGATIVE Crossmatch See Detail 02/08/17 02/08/17 02/08/17 08:11 10:41 11:31 WBC RBC Hgb 9.5 L Hct 30.1 L MCV MCH MCHC RDW Plt Count MPV Immature Gran % Seg Neutrophils % Band Neutrophils % Lymphocytes % Monocytes % Eosinophils % Basophils % Metamyelocytes % Neutrophils # Lymphocytes # Monocytes # Eosinophils # Basophils # Nucleated RBCs/100 WBC Reactive Lymphocytes Platelet Estimate Large Platelets Immature Plt Fraction Hypochromasia Anisocytosis PT INR ABG pH ABG pCO2 ABG pO2 ABG HCO3 ABG Total CO2 ABG O2 Saturation ABG Base Excess Respiration Rate Blood Gas Modality Inspired O2 Tidal Volume PEEP Sodium Potassium Chloride Carbon Dioxide BUN Creatinine Est GFR ( Amer) Est GFR (Non-Af Amer) BUN/Creatinine Ratio Glucose POC Glucose 147 H 153 H Calculated Osmolality Lactic Acid Calcium Ionized Calcium Phosphorus Magnesium Total Bilirubin AST ALT Alkaline Phosphatase Serum Total Protein Albumin Globulin Albumin/Globulin Ratio Myeloperoxidase Ab Serine Protease 3 Ab Blood Type Antibody Screen Crossmatch 02/08/17 02/08/17 02/08/17 15:09 15:46 17:12 WBC 23.9 H RBC 2.76 L Hgb 7.9 L D Hct 24.4 L MCV 88.4 MCH 28.6 MCHC 32.4 RDW 17.8 H Plt Count 97 L MPV 11.9 Immature Gran % Seg Neutrophils % 84.0 Band Neutrophils % 6.0 H Lymphocytes % 4.0 Monocytes % 6.0 Eosinophils % Basophils % Metamyelocytes % Neutrophils # 21.5 H Lymphocytes # 1.0 Monocytes # 1.4 H Eosinophils # Basophils # Nucleated RBCs/100 WBC 2.9 H Reactive Lymphocytes Present A Platelet Estimate Decreased L Large Platelets Present A Immature Plt Fraction 11.6 H Hypochromasia Anisocytosis 1+ A PT INR ABG pH ABG pCO2 ABG pO2 ABG HCO3 ABG Total CO2 ABG O2 Saturation ABG Base Excess Respiration Rate Blood Gas Modality Inspired O2 Tidal Volume PEEP Sodium Potassium Chloride Carbon Dioxide BUN Creatinine Est GFR ( Amer) Est GFR (Non-Af Amer) BUN/Creatinine Ratio Glucose POC Glucose 159 H 167 H Calculated Osmolality Lactic Acid Calcium Ionized Calcium Phosphorus Magnesium Total Bilirubin AST ALT Alkaline Phosphatase Serum Total Protein Albumin Globulin Albumin/Globulin Ratio Myeloperoxidase Ab Serine Protease 3 Ab Blood Type Antibody Screen Crossmatch 02/08/17 02/08/17 02/08/17 18:36 19:11 19:11 WBC RBC Hgb Hct MCV MCH MCHC RDW Plt Count MPV Immature Gran % Seg Neutrophils % Band Neutrophils % Lymphocytes % Monocytes % Eosinophils % Basophils % Metamyelocytes % Neutrophils # Lymphocytes # Monocytes # Eosinophils # Basophils # Nucleated RBCs/100 WBC Reactive Lymphocytes Platelet Estimate Large Platelets Immature Plt Fraction Hypochromasia Anisocytosis PT 17.5 H INR 1.6 ABG pH 7.31 L ABG pCO2 58 H ABG pO2 88 ABG HCO3 29.2 H ABG Total CO2 31.0 H ABG O2 Saturation 96 ABG Base Excess 2.5 Respiration Rate 12 Blood Gas Modality VENT Inspired O2 50 Tidal Volume 500 PEEP 5 Sodium 139 Potassium 5.8 H Chloride 104 Carbon Dioxide 27 BUN 93 H Creatinine 2.57 H Est GFR ( Amer) 30 L Est GFR (Non-Af Amer) 24 L BUN/Creatinine Ratio 36 H Glucose 156 H POC Glucose Calculated Osmolality 320 H Lactic Acid Calcium 8.0 L Ionized Calcium Phosphorus Magnesium Total Bilirubin 2.3 H AST 78 H ALT 43 Alkaline Phosphatase 87 Serum Total Protein 4.7 L D Albumin 1.7 L D Globulin 3.0 Albumin/Globulin Ratio 0.6 L Myeloperoxidase Ab Serine Protease 3 Ab Blood Type Antibody Screen Crossmatch 02/08/17 02/08/17 02/08/17 19:11 19:11 22:57 WBC 19.6 H RBC 2.81 L Hgb 8.0 L 8.8 L Hct 25.1 L 27.5 L MCV 89.3 MCH 28.5 MCHC 31.9 RDW 17.4 H Plt Count 85 L MPV 12.0 Immature Gran % Seg Neutrophils % 86.0 Band Neutrophils % 8.0 H Lymphocytes % 4.0 Monocytes % Eosinophils % Basophils % Metamyelocytes % 2.0 H Neutrophils # 18.4 H Lymphocytes # 0.8 Monocytes # Eosinophils # Basophils # Nucleated RBCs/100 WBC 3.1 H Reactive Lymphocytes Platelet Estimate Decreased L Large Platelets Immature Plt Fraction 7.8 H Hypochromasia Present A Anisocytosis 1+ A PT INR ABG pH ABG pCO2 ABG pO2 ABG HCO3 ABG Total CO2 ABG O2 Saturation ABG Base Excess Respiration Rate Blood Gas Modality Inspired O2 Tidal Volume PEEP Sodium Potassium Chloride Carbon Dioxide BUN Creatinine Est GFR ( Amer) Est GFR (Non-Af Amer) BUN/Creatinine Ratio Glucose POC Glucose Calculated Osmolality Lactic Acid 1.7 Calcium Ionized Calcium Phosphorus Magnesium Total Bilirubin AST ALT Alkaline Phosphatase Serum Total Protein Albumin Globulin Albumin/Globulin Ratio Myeloperoxidase Ab Serine Protease 3 Ab Blood Type Antibody Screen Crossmatch 02/09/17 02/09/17 02/09/17 00:29 00:56 00:56 WBC RBC Hgb Hct MCV MCH MCHC RDW Plt Count MPV Immature Gran % Seg Neutrophils % Band Neutrophils % Lymphocytes % Monocytes % Eosinophils % Basophils % Metamyelocytes % Neutrophils # Lymphocytes # Monocytes # Eosinophils # Basophils # Nucleated RBCs/100 WBC Reactive Lymphocytes Platelet Estimate Large Platelets Immature Plt Fraction Hypochromasia Anisocytosis PT INR ABG pH ABG pCO2 ABG pO2 ABG HCO3 ABG Total CO2 ABG O2 Saturation ABG Base Excess Respiration Rate Blood Gas Modality Inspired O2 Tidal Volume PEEP Sodium 139 Potassium 5.4 H Chloride 105 Carbon Dioxide 26 BUN 101 H Creatinine 2.62 H Est GFR ( Amer) 29 L Est GFR (Non-Af Amer) 24 L BUN/Creatinine Ratio 39 H Glucose 184 H POC Glucose 194 H Calculated Osmolality 324 H Lactic Acid 1.5 Calcium 8.0 L Ionized Calcium Phosphorus Magnesium Total Bilirubin AST ALT Alkaline Phosphatase Serum Total Protein Albumin Globulin Albumin/Globulin Ratio Myeloperoxidase Ab Serine Protease 3 Ab Blood Type Antibody Screen Crossmatch 02/09/17 02/09/17 02/09/17 02:54 03:37 03:37 WBC 21.7 H RBC 3.21 L Hgb 9.1 L 9.1 L Hct 27.7 L 27.7 L MCV 86.3 MCH 28.3 MCHC 32.9 RDW 16.4 H Plt Count 112 L MPV 11.3 Immature Gran % 4.1 H Seg Neutrophils % 79.4 Band Neutrophils % Lymphocytes % 8.0 Monocytes % 8.4 Eosinophils % 0.0 Basophils % 0.1 Metamyelocytes % Neutrophils # 17.2 H Lymphocytes # 1.7 Monocytes # 1.8 H Eosinophils # 0.0 Basophils # 0.0 Nucleated RBCs/100 WBC 5.2 H Reactive Lymphocytes Platelet Estimate Large Platelets Immature Plt Fraction 7.3 H Hypochromasia Anisocytosis PT INR ABG pH ABG pCO2 ABG pO2 ABG HCO3 ABG Total CO2 ABG O2 Saturation ABG Base Excess Respiration Rate Blood Gas Modality Inspired O2 Tidal Volume PEEP Sodium 140 Potassium 5.1 H Chloride 105 Carbon Dioxide 27 BUN 99 H Creatinine 2.59 H Est GFR ( Amer) 29 L Est GFR (Non-Af Amer) 24 L BUN/Creatinine Ratio 38 H Glucose 164 H POC Glucose Calculated Osmolality 324 H Lactic Acid Calcium 8.2 L Ionized Calcium 1.14 L Phosphorus 5.0 H Magnesium 2.2 Total Bilirubin 2.5 H AST 64 H ALT 41 Alkaline Phosphatase 87 Serum Total Protein 4.9 L Albumin 1.8 L Globulin 3.1 Albumin/Globulin Ratio 0.6 L Myeloperoxidase Ab Serine Protease 3 Ab Blood Type Antibody Screen Crossmatch 02/09/17 02/09/17 02/09/17 04:42 05:11 06:50 WBC RBC Hgb 8.7 L Hct 25.7 L MCV MCH MCHC RDW Plt Count MPV Immature Gran % Seg Neutrophils % Band Neutrophils % Lymphocytes % Monocytes % Eosinophils % Basophils % Metamyelocytes % Neutrophils # Lymphocytes # Monocytes # Eosinophils # Basophils # Nucleated RBCs/100 WBC Reactive Lymphocytes Platelet Estimate Large Platelets Immature Plt Fraction Hypochromasia Anisocytosis PT INR ABG pH 7.37 ABG pCO2 47 H ABG pO2 55 L ABG HCO3 27.2 H ABG Total CO2 28.6 H ABG O2 Saturation 87 L ABG Base Excess 1.5 Respiration Rate 16 Blood Gas Modality VCT Inspired O2 35 Tidal Volume 500 PEEP 5 Sodium Potassium Chloride Carbon Dioxide BUN Creatinine Est GFR ( Amer) Est GFR (Non-Af Amer) BUN/Creatinine Ratio Glucose POC Glucose 149 H Calculated Osmolality Lactic Acid Calcium Ionized Calcium Phosphorus Magnesium Total Bilirubin AST ALT Alkaline Phosphatase Serum Total Protein Albumin Globulin Albumin/Globulin Ratio Myeloperoxidase Ab Serine Protease 3 Ab Blood Type Antibody Screen Crossmatch 02/09/17 07:25 WBC RBC Hgb Hct MCV MCH MCHC RDW Plt Count MPV Immature Gran % Seg Neutrophils % Band Neutrophils % Lymphocytes % Monocytes % Eosinophils % Basophils % Metamyelocytes % Neutrophils # Lymphocytes # Monocytes # Eosinophils # Basophils # Nucleated RBCs/100 WBC Reactive Lymphocytes Platelet Estimate Large Platelets Immature Plt Fraction Hypochromasia Anisocytosis PT 16.7 H INR 1.5 ABG pH ABG pCO2 ABG pO2 ABG HCO3 ABG Total CO2 ABG O2 Saturation ABG Base Excess Respiration Rate Blood Gas Modality Inspired O2 Tidal Volume PEEP Sodium Potassium Chloride Carbon Dioxide BUN Creatinine Est GFR ( Amer) Est GFR (Non-Af Amer) BUN/Creatinine Ratio Glucose POC Glucose Calculated Osmolality Lactic Acid Calcium Ionized Calcium Phosphorus Magnesium Total Bilirubin AST ALT Alkaline Phosphatase Serum Total Protein Albumin Globulin Albumin/Globulin Ratio Myeloperoxidase Ab Serine Protease 3 Ab Blood Type Antibody Screen Crossmatch Cultures: Cultures 02/08/17 06:45 Blood Culture - Preliminary Peripheral Venipuncture No growth. 02/08/17 06:39 Blood Culture - Preliminary Peripheral Venipuncture No growth. 02/07/17 04:35 Blood Culture - Preliminary Peripheral Venipuncture No growth. Serology 02/07/17 02/07/17 Range/Units 15:26 15:26 Ur Eosinophil Smear 0 (None Seen) % Urine Creatinine 158 mg/dL Urine Microalbumin 103 mg/L Microalb/Creat Ratio 65 H (0-30) Protein/Creatinin Ratio 0.41 H (0-0.20) mg/mg Urine Total Protein 65 H (1-14) mg/dL - Impressions Impressions Humerus X-Ray 02/07/17 15:25 IMPRESSION: No acute abnormality in the left shoulder. No acute abnormality in the left humerus. Severe glenohumeral joint osteoarthritis. D/ / 02/07/2017 21:08:26 Christopher Pan MD / olya Interpreting Provider: Christopher Pan MD Shoulder X-Ray 02/07/17 15:25 IMPRESSION: No acute abnormality in the left shoulder. No acute abnormality in the left humerus. Severe glenohumeral joint osteoarthritis. D/ / 02/07/2017 21:08:26 Christopher Pan MD / olya Interpreting Provider: Christopher Pan MD Chest X-Ray 02/08/17 18:24 IMPRESSION: Right internal jugular central venous catheter placement with the tip overlying the mid SVC. No pneumothorax. D/ / Daisy Lester MD / Daisy Lester MD Interpreting Provider: Daisy Lester MD Cervical Spine CT 02/09/17 00:11 IMPRESSION: 1. No acute osseous abnormality of the cervical spine. 2. Severe C4/C5, C5/C6 and C6/C7 degenerative disc disease. 3. 3.8 cm nodule arising from the inferior aspect of the right lobe of the thyroid gland. Further evaluation with nonemergent thyroid ultrasound is recommended, as outlined below RECOMMENDATIONS: Managing Incidental Thyroid Nodule Detected at CT or MRI or US 1. Further evaluation by thyroid Ultrasound recommended for these incidental nodules: Patient Age 18 years or less - Any nodule. Patient Age 19-34 years old - Nodule 1 cm in size or greater Patient Age 35 years or more - Nodule 1.5 cm in size or greater 2. Follow up thyroid ultrasound also recommend in these scenarios -Solitary nodule with high risk imaging features (locally invasive nodule or suspicious lymph nodes) -Any nodule in a heterogeneous enlarged thyroid gland 3. NO further imaging is recommended in the following scenarios -No f/u imaging is recommended for ITNs not meeting the above criteria. -No US or f/u recommended for ITNs without high risk features in pts. with limited life expectancy or significant co-morbidities, unless clinically warranted. Note: These recommendations do not apply to pts. w/ increased risk for thyroid cancer or pts. with symptomatic thyroid disease. Recommendations for f/u of Incidental Thyroid Nodules (ITN) found on CT, MR, NM and Extrathyroidal US are based upon the ACR white paper and [place] 3-tiered system for managing ITNs: J Am Elías Radiol. 2015 Oct;12(2): 143-50 D/ / Pérez Navarro MD / Pérez Navarro MD Interpreting Provider: Pérez Navarro MD Abdomen CT 02/09/17 02:26 IMPRESSION: 1. No acute abnormality in the abdomen. 2. Small pleural effusions with overlying consolidations, either due to atelectasis or pneumonia. 3. Severe cardiomegaly. 4. Minimal abdominal free fluid. Anasarca. 5. 3.6 cm infrarenal abdominal aortic aneurysm. Management guidelines are outlined below. RECOMMENDATIONS: Managing Abdominal Aortic Aneurysms 3.5-3.9 cm: 1 year follow up. 4.0-4.4 cm: 1 year follow up. Recommend vascular consultation. 4.5-5.4 cm: 6 month follow up. Recommend vascular consultation. Greater than or equal to 5.5 cm: Referral to vascular surgeon. Reference: Enrico et al. The care of patients with an abdominal aortic aneurysm: The Society of Vascular Surgery practice guidelines. Journal of Vascular Surgery. Vol 50, Number 85. Kierra et al. Managing Incidental Findings on Abdominal and Pelvic CT and MRI, Part 2: White Paper of the ACR Incidental Findings Committee II on Vascular Findings. J Am Elías Radiol 2013;10:789-794 D/ / Pérez Navarro MD / Pérez Navarro MD Interpreting Provider: Pérez Navarro MD Chest X-Ray 02/09/17 05:00 IMPRESSION: 1. Satisfactory positioning of the endotracheal tube. No pneumothorax. 2. Stable small left pleural effusion with overlying atelectasis/infiltrate. D/ / Pérez Navarro MD / Pérez Navraro MD Interpreting Provider: Pérez Navarro MD Lumbar Spine CT 02/09/17 14:30 IMPRESSION: 1. Diffuse osteopenia. No evidence of acute lumbar spine fracture. 2. 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 3. 3.5 cm infrarenal abdominal aortic aneurysm. Follow-up imaging in 1 year is recommended per recommendations listed below. RECOMMENDATIONS: Managing Abdominal Aortic Aneurysms 2.6-2.9 cm: 5 year follow up. 3.0-3.4 cm: 3 year follow up 3.5-3.9 cm: 1 year follow up. 4.0-4.4 cm: 1 year follow up. Recommend vascular consultation. 4.5-5.4 cm: 6 month follow up. Recommend vascular consultation. Greater than or equal to 5.5 cm: Referral to vascular surgeon. Reference: Enrico et al. The care of patients with an abdominal aortic aneurysm: The Society of Vascular Surgery practice guidelines. Journal of Vascular Surgery. Vol 50, Number 85. Kierra et al. Managing Incidental Findings on Abdominal and Pelvic CT and MRI, Part 2: White Paper of the ACR Incidental Findings Committee II on Vascular Findings. J Am Elías Radiol 2013;10:789-794 D/ / 02/09/2017 07:04:39 Amparo Morgan MD / bcarter Interpreting Provider: Amparo Morgan MD Exam - Constitutional Vitals: Temp Pulse Resp BP Pulse Ox 97.8 F 72 16 80/50 98 02/09/17 07:00 02/09/17 10:00 02/09/17 10:00 02/09/17 10:00 02/09/17 10:00 General appearance: cooperative, morbidly obese, no acute distress - Head Head exam: Present: atraumatic, normal inspection, normocephalic - Eye Eye exam: Present: normal appearance, PERRL Pupils: Present: normal accommodation - ENT ENT exam: Present: mucous membranes moist - Neck Neck exam: Present: normal inspection Additional comments: Triple lumen CVC noted to the right neck with transparent dressing C/D/I. - Respiratory Respiratory exam: Present: CTAB. Absent: rales, respiratory distress, rhonchi, wheezes - Cardiovascular Cardiovascular exam: Present: RRR, +S1, +S2 - GI/Abdominal GI/Abdominal exam: Present: distended (obese), normal bowel sounds, soft. Absent: tenderness Additional comments: Patel catheter noted to be draining a small amount of dark yellow urine. Rectal tube noted with large amount of dark red liquid stool. OG tube to LIWS with moderate amount of dark red bloody drainage.0 - Extremities Exam Extremities exam: Present: pedal edema (2+ BLE). Absent: joint swelling, tenderness Additional comments: BLE dressing C/D/I were changed at 0600 this morning. Right foot second toe ecchymotic and non-blanchable. - Neurological Exam Neurological exam: Present: altered (Sedated, squeezes hands and wiggles toes on commands, but does not open eyes. Does not respond when questions asked.) - Skin Skin exam: Present: dry, intact, normal color, warm Consult Discharge Plan - Plan Referrals: Samuel,Yasmani Martin MD [Non-Partnered Physician] - (OFFICE WILL NOT MAKE A FOLLOW UP APPOINTMENT FOR THIS PATIENT UNITL WE HAVE A DISCHARGE ORDER) - Attending Attestation I examined this patient and my medical decision-making was reviewed with the MARBLE WORKER/PA/Advanced Practice Nurse/Resident Physician. I agree with the documented findings, disposition and treatment plan as described except to the extent set forth below.
[2017-02-09] MEDS: Levofloxacin 750 MG/150 ML 750 MG/150 ML BAG IVPB SCH (11:23)
--- NOTE | 2017-02-09 12:20 | Nephrology Progress Note ---
Date of Encounter: 02/09/17 Time of Encounter: 12:19 - Assessment and Plan (1) SAGE (acute kidney injury) Current Visit: Yes Status: Acute Oliguric SAGE. UOP increasing. Repeat potassium decreasing. Will hold on dialysis for now. Renal dose medications and avoid nephrotoxins. Plan discussed with ICU team. (2) Anemia Current Visit: Yes Status: Acute secondary to GI bleeding. Management per GI and primary team. Qualifiers: Anemia type: iron deficiency Iron deficiency anemia type: chronic blood loss Qualified Code(s): D50.0 - Iron deficiency anemia secondary to blood loss (chronic) (3) Severe sepsis Current Visit: Yes Status: Acute LIkely from leg wounds. Antibiotics per primary team. (4) Cellulitis Current Visit: Yes Status: Acute Continue antibiotics and wound nurse care. Qualifiers: Site of cellulitis: extremity Site of cellulitis of extremity: lower extremity Laterality: right Qualified Code(s): L03.115 - Cellulitis of right lower limb (5) Essential hypertension Current Visit: Yes Status: Acute Currently in shock. Pressor support as needed. (6) Diabetes mellitus Current Visit: Yes Status: Chronic Per primary team. Qualifiers: Diabetes mellitus type: type 2 Diabetes mellitus complication status: with unspecified complications Diabetes mellitus termite exterminator insulin use: without termite exterminator use Qualified Code(s): E11.8 - Type 2 diabetes mellitus with unspecified complications (7) CHF (congestive heart failure) Current Visit: Yes Status: Acute Per cardiology Qualifiers: Congestive heart failure type: unspecified congestive heart failure type Congestive heart failure chronicity: chronic Qualified Code(s): I50.9 - Heart failure, unspecified (8) CAD (coronary artery disease) Current Visit: Yes Status: Chronic Per cardiology. Qualifiers: Coronary Disease-Associated Artery/Lesion type: [place] artery [place] vs. transplanted heart: [place] heart Associated angina: without angina Qualified Code(s): I25.10 - Atherosclerotic heart disease of [place] coronary artery without angina pectoris (9) Back pain Current Visit: Yes Status: Acute Imaging revealed DJD. Qualifiers: Back pain location: low back pain Chronicity: chronic Back pain laterality: midline Sciatica presence: without sciatica Qualified Code(s): M54.5 - Low back pain; G89.29 - Other chronic pain Subjective Principal diagnosis: GI bleed, Sepsis, acute systolic CHF. Interval history: Patient intubated and sedated. ROS unobtainable. Objective - Vital Signs Vital signs: Vital Signs Temp Pulse Resp BP Pulse Ox 02/09/17 12:02 97.6 F 02/09/17 10:00 72 16 80/50 98 02/09/17 09:25 17 83/54 98 02/09/17 09:00 69 16 79/59 99 02/09/17 08:00 69 16 85/48 97 02/09/17 07:37 66 02/09/17 07:32 16 97 02/09/17 07:00 97.8 F 66 16 81/51 97 02/09/17 06:00 67 16 97/52 96 02/09/17 05:37 16 96 02/09/17 05:11 73 17 87/46 93 02/09/17 04:29 17 93 02/09/17 04:16 98.2 F 77 16 101/55 92 02/09/17 03:00 69 16 84/53 91 02/09/17 02:00 74 16 95/54 92 02/09/17 01:00 68 16 98/53 95 02/09/17 00:12 97.6 F 77 16 92/66 93 02/09/17 00:09 97.5 F L 02/09/17 00:00 74 16 91/56 95 02/08/17 23:43 16 93 02/08/17 23:00 70 16 83/56 94 02/08/17 22:11 97.9 F 80 16 100/59 97 02/08/17 22:00 68 16 93/62 97 02/08/17 21:56 97.7 F 66 17 94/61 96 02/08/17 21:54 97.7 F 75 16 94/61 97 02/08/17 21:30 16 96 02/08/17 21:23 97.6 F 71 16 91/61 97 02/08/17 21:03 96.9 F L 02/08/17 21:00 69 16 90/61 96 02/08/17 20:35 16 100 02/08/17 20:08 17 99 02/08/17 20:05 97.6 F 68 17 77/55 99 02/08/17 20:00 74 16 78/51 96 02/08/17 19:55 97.6 F 77 16 77/66 99 02/08/17 19:50 97.6 F 74 16 75/51 99 02/08/17 19:40 97.5 F L 78 16 76/46 99 02/08/17 19:00 86 16 91/62 97 02/08/17 18:09 97.7 F 84 16 99/66 96 02/08/17 18:00 73 14 99/66 95 02/08/17 17:10 97.7 F 78 14 107/64 95 02/08/17 17:07 15 100/63 95 02/08/17 16:58 98.0 F 81 12 89/50 94 02/08/17 16:48 98.0 F 84 12 123/65 95 02/08/17 16:38 98.4 F 93 12 116/70 94 02/08/17 16:37 98.0 F 88 12 123/65 95 02/08/17 16:28 97.9 F 87 12 101/50 94 02/08/17 16:23 97.9 F 75 12 97/60 97 02/08/17 16:18 97.9 F 93 12 97/60 93 02/08/17 16:13 12 97/60 98 02/08/17 16:08 93 12 102/61 97 02/08/17 15:58 91 12 111/57 98 02/08/17 15:48 98.4 F 93 12 98/52 97 02/08/17 15:38 87 12 87/57 94 02/08/17 15:28 89 12 105/92 94 02/08/17 15:18 98.9 F 91 12 96/50 92 02/08/17 15:08 87 12 87/57 91 02/08/17 14:58 89 12 105/92 92 02/08/17 14:48 97.2 F L 89 16 103/69 98 02/08/17 13:40 83 Intake and Output 02/08/17 02/09/17 02/09/17 23:59 07:59 15:59 Intake Total 1566 / 1566 939 / 939 100 / 100 Output Total 150 / 150 725 / 725 100 / 100 Balance 1416 / 1416 214 / 214 0 / 0 Intake: IV Fluids 351 / 351 589 / 589 100 / 100 FentaNYL (PF) 1,000 MCG 100 / 100 In 0.9 % Sodium Chloride 80 ML @ 50 MCG/HR 5 mls/ hr IVC CONT [facility] Rx#: [id number] Levophed 4 MG In Dextrose 89 / 89 5% 250 ML @ 8 MCG/MIN 30 mls/hr IVC CONT [facility] Rx#: [id number] Protonix 40 MG In 0.9 % 100 / 100 200 / 200 100 / 100 Sodium Chloride (Mini-Bag +) 100 ML @ 20 mls/hr IVC .Q5H [facility] Rx#: [id number] Cleocin Premix 600 MG/50 100 / 100 ML 600 mg In 50 ml @ 50 mls/hr IVPB Q8HR [facility] Rx#: [id number] Pfizerpen 4,000,000 UNIT 100 / 100 200 / 200 In Dextrose 5% 100 ML @ 100 mls/hr IVPB Q6H [facility] Rx#:[id number] AquaMephyton 10 MG In 0.9 51 / 51 % Sodium Chloride 50 ML @ 102 mls/hr IVPB Q24H [facility] Rx#:[id number] Blood Product 1215 / 1215 350 / 350 Platelet Pheresis Lp Irr 230 / 230 2nd Unit [id number] Rbcs Leuko Poor As-1 665 / 665 Unit [id number] Rbcs Leuko Poor As-1 0 / 0 350 / 350 Unit [id number] Rbcs Leuko Poor As-1 320 / 320 Unit [id number] Output: Rectal Tube 100 / 100 0 / 0 Catheter 50 / 50 325 / 325 100 / 100 Gastric Drainage 400 / 400 Other: Weight 132.5 kg Blood Glucose* 167 149 156 Patient Weight 02/09/17 23:59 Weight 132.5 kg - General Appearance General appearance: Present: well-developed, well-nourished EENT: Present: ATNC Neck: Present: supple Respiratory: Present: course breath sounds Cardiology: Present: regular rate, regular rhythm Integumentary: Present: warm and dry Additional Comments: intubated - Lab 02/10/17 07:15 02/10/17 03:10 Most recent lab results ABG pH 7.37 pH Units (7.32-7.45) 02/09/17 04:42 ABG pCO2 47 mmHg (35-45) H 02/09/17 04:42 ABG pO2 55 mmHg (85-104) L 02/09/17 04:42 ABG HCO3 27.2 mEQ/L (21-27) H 02/09/17 04:42 ABG O2 Saturation 87 % (95-98) L 02/09/17 04:42 Calcium 8.2 mg/dL (8.6-10.8) L 02/09/17 03:37 Phosphorus 5.0 mg/dL (2.3-4.7) H 02/09/17 03:37 Magnesium 2.2 mg/dL (1.6-2.6) 02/09/17 03:37 Urine Creatinine 158 mg/dL 02/07/17 15:26 Urine Total Protein 65 mg/dL (1-14) H 02/07/17 15:26 Consult Discharge Plan - Plan Referrals: Yasmani Baker MD [Non-Partnered Physician] - (OFFICE WILL NOT MAKE A FOLLOW UP APPOINTMENT FOR THIS PATIENT UNITL WE HAVE A DISCHARGE ORDER)
[2017-02-09] MEDS: Dexmedetomidine HCl 400 MCG/100 ML MLS IVC SCH (12:23)
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
--- NOTE | 2017-02-09 14:57 | General Surgery Progress Note ---
Date of Encounter: 02/10/17 Time of Encounter: 14:00 - Assessment and Plan (1) Duodenal ulcer Current Visit: Yes Status: Acute S/P EGD 02/08/[address] Phan No evidence of ongoing GI bleeding Continue NG tube to LIWS PPI therapy BID Add carafate QID via NG tube Supportive care Monitor Hgb/Hct No surgical intervention indicated at this time (2) Acute blood loss anemia Current Visit: Yes Status: Acute S/P EGD 02/08/[address] Phan Total of 5 units of PRBC transfused 02/08/17 Hgb 9.1>8.7 No evidence of ongoing GI bleeding Continue NG tube to LIWS PPI therapy BID Add carafate QID via NG tube Supportive care Monitor Hgb/Hct No surgical intervention indicated at this time (3) SAGE (acute kidney injury) Current Visit: Yes Status: Acute Cr 2.57>2.62 Strict I&Os Heller catheter to SD Avoid nephrotoxic medications Nephrology following (4) Cardiomyopathy Current Visit: Yes Status: Acute Cardiology following for recommendations Qualifiers: Cardiomyopathy type: unspecified Qualified Code(s): I42.9 - Cardiomyopathy , unspecified (5) Acute respiratory failure with hypoxia and hypercapnia Current Visit: Yes Status: Acute Ventilator support Management per pulmonary/critical care team (6) GI bleeding Current Visit: Yes Status: Acute S/P EGD 02/08/[address] Phan No evidence of ongoing GI bleeding Continue NG tube to LIWS PPI therapy BID Add carafate QID via NG tube Supportive care Monitor Hgb/Hct No surgical intervention indicated at this time Qualifiers: GI bleed type/associated pathology: duodenal ulcer Qualified Code(s): 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 Subjective Patient reports: bowel movement, blood in stool (melena via rectal tube (output is minimal and no increase throughout the day today)), afebrile, other (Patient on ventilator support and resting comfortably. On pressor support 1mg of norepinephrine. No evidence of any ongoing GI bleeding at this time. Patient is experiencing cardiac arrhythmias.) Objective Vital Signs - Last 8 Hours Temp Pulse Resp BP Pulse Ox 02/09/17 14:32 71 16 93/57 98 02/09/17 13:00 66 16 86/54 98 02/09/17 12:02 97.6 F 02/09/17 12:00 66 16 95/48 98 02/09/17 11:17 65 16 84/52 98 02/09/17 10:00 72 16 80/50 98 02/09/17 09:25 17 83/54 98 02/09/17 09:00 69 16 79/59 99 02/09/17 08:00 69 16 85/48 97 02/09/17 07:37 66 02/09/17 07:32 16 97 02/09/17 07:00 97.8 F 66 16 81/51 97 Intake and Output 02/08/17 02/09/17 02/09/17 23:59 07:59 15:59 Intake Total 1566 / 1566 939 / 939 150 / 150 Output Total 150 / 150 725 / 725 100 / 100 Balance 1416 / 1416 214 / 214 50 / 50 Intake: IV Fluids 351 / 351 589 / 589 150 / 150 FentaNYL (PF) 1,000 MCG 100 / 100 In 0.9 % Sodium Chloride 80 ML @ 50 MCG/HR 5 mls/ hr IVC CONT [facility] Rx#: [id number] Levophed 4 MG In Dextrose 89 / 89 5% 250 ML @ 8 MCG/MIN 30 mls/hr IVC CONT [facility] Rx#: [id number] Protonix 40 MG In 0.9 % 100 / 100 200 / 200 100 / 100 Sodium Chloride (Mini-Bag +) 100 ML @ 20 mls/hr IVC .Q5H [facility] Rx#: [id number] Cleocin Premix 600 MG/50 100 / 100 50 / 50 ML 600 mg In 50 ml @ 50 mls/hr IVPB Q8HR [facility] Rx#: [id number] Pfizerpen 4,000,000 UNIT 100 / 100 200 / 200 In Dextrose 5% 100 ML @ 100 mls/hr IVPB Q6H [facility] Rx#:[id number] AquaMephyton 10 MG In 0.9 51 / 51 % Sodium Chloride 50 ML @ 102 mls/hr IVPB Q24H [facility] Rx#:[id number] Blood Product 1215 / 1215 350 / 350 Platelet Pheresis Lp Irr 230 / 230 2nd Unit [id number] Rbcs Leuko Poor As-1 665 / 665 Unit [id number] Rbcs Leuko Poor As-1 0 / 0 350 / 350 Unit [id number] Rbcs Leuko Poor As-1 320 / 320 Unit [id number] Output: Rectal Tube 100 / 100 0 / 0 Catheter 50 / 50 325 / 325 100 / 100 Gastric Drainage 400 / 400 Other: Weight 132.5 kg Blood Glucose* 167 149 156 Patient Weight 02/09/17 23:59 Weight 132.5 kg - General physical appearance chronically ill, obese, other (Patient resting comfortably on ventilator support ) - Eyes PERRL - ENT dry mucosa, atraumatic, normocephalic - Neck Neck exam: trachea midline - Respiratory clear to auscultation, other (ventilator support- FiO2 of 60%) - Cardiovascular Cardiovascular exam: Present: irregular rhythm - Abdomen Abdomen: Present: bowel sounds present, soft, non tender (no grimace with palpation), wound (NG tube to LIWS with old blood noted (no bright red blood noted today); Rectal tube with small amount of melena) - Genitourinary other (heller catheter to SD ) - Psychiatric other (Unable to assess at this time) - Labs 02/10/17 07:15 02/10/17 03:10 Diabetes panel 02/08/17 02/09/17 02/09/17 Range/Units 19:11 00:56 03:37 Sodium 139 139 140 (136-145) mEq/L Potassium 5.8 H 5.4 H 5.1 H (3.5-4.5) mEq/L Chloride 104 105 105 (98-109) mEq/L Carbon Dioxide 27 26 27 (19-29) mEq/L BUN 93 H 101 H 99 H (8-26) mg/dL Creatinine 2.57 H 2.62 H 2.59 H (0.72-1.25) mg/dL Glucose 156 H 184 H 164 H (70-99) mg/dL Calcium 8.0 L 8.0 L 8.2 L (8.6-10.8) mg/dL AST 78 H 64 H (5-34) Units/L ALT 43 41 (0-55) Units/L Alkaline Phosphatase 87 87 (38-126) Units/L Albumin 1.7 L D 1.8 L (3.5-5.0) g/dL Calcium panel 02/08/17 02/08/17 02/09/17 Range/Units 06:39 19:11 00:56 Calcium 8.0 L 8.0 L (8.6-10.8) mg/dL Phosphorus (2.3-4.7) mg/dL Albumin 1.7 L D (3.5-5.0) g/dL 25-OH Vitamin D Total 15 L (30-80) ng/mL 02/09/17 Range/Units 03:37 Calcium 8.2 L (8.6-10.8) mg/dL Phosphorus 5.0 H (2.3-4.7) mg/dL Albumin 1.8 L (3.5-5.0) g/dL 25-OH Vitamin D Total (30-80) ng/mL Pituitary panel 02/08/17 02/09/17 02/09/17 Range/Units 19:11 00:56 03:37 Sodium 139 139 140 (136-145) mEq/L Potassium 5.8 H 5.4 H 5.1 H (3.5-4.5) mEq/L Chloride 104 105 105 (98-109) mEq/L Carbon Dioxide 27 26 27 (19-29) mEq/L BUN 93 H 101 H 99 H (8-26) mg/dL Creatinine 2.57 H 2.62 H 2.59 H (0.72-1.25) mg/dL Glucose 156 H 184 H 164 H (70-99) mg/dL Calcium 8.0 L 8.0 L 8.2 L (8.6-10.8) mg/dL Adrenal panel 02/08/17 02/09/17 02/09/17 Range/Units 19:11 00:56 03:37 Sodium 139 139 140 (136-145) mEq/L Potassium 5.8 H 5.4 H 5.1 H (3.5-4.5) mEq/L Chloride 104 105 105 (98-109) mEq/L Carbon Dioxide 27 26 27 (19-29) mEq/L BUN 93 H 101 H 99 H (8-26) mg/dL Creatinine 2.57 H 2.62 H 2.59 H (0.72-1.25) mg/dL Glucose 156 H 184 H 164 H (70-99) mg/dL Calcium 8.0 L 8.0 L 8.2 L (8.6-10.8) mg/dL Total Bilirubin 2.3 H 2.5 H (0.2-1.2) mg/dL AST 78 H 64 H (5-34) Units/L ALT 43 41 (0-55) Units/L Alkaline Phosphatase 87 87 (38-126) Units/L Albumin 1.7 L D 1.8 L (3.5-5.0) g/dL Consult Discharge Plan - Plan Referrals: Yasmani Baker MD [Non-Partnered Physician] - (OFFICE WILL NOT MAKE A FOLLOW UP APPOINTMENT FOR THIS PATIENT UNITL WE HAVE A DISCHARGE ORDER) - Attending Attestation I examined this patient and my medical decision-making was reviewed with the MIXER OPERATOR [employer]/PA/Advanced Practice Nurse/Resident Physician. I agree with the documented findings, disposition and treatment plan as described except to the extent set forth below. I evaluated physical examination and assessment as listed above. Patient's hemoglobin appears stable. Old blood noted in the NG tube aspirate. Continue with NG tube decompression and monitoring the hemoglobin and hematocrit. Abdomen is soft on examination and patient is sedated and still intubated.
[2017-02-09 15:05] LABS: Calcium 7.8 mg/dL (8.6-10.8)
[2017-02-09 16:30] LABS: Hematocrit 25.7 % (37.5-50.1); Hemoglobin 8.5 g/dL (12.9-16.9); Mean Corpuscular HGB Conc 33.1 g/dL (31.6-35.5); Mean Corpuscular Hemoglobin 28.1 pg (28.0-33.3); Mean Corpuscular Volume 85.1 fL (83.0-100.0); Mean Platelet Volume 11.6 fL (9.4-12.4); Nucleated Red Blood Cells 6.8 /100 WBC (0); Platelet Count 103 K/mcL (140-400); Red Blood Count 3.02 M/mcL (4.19-5.50); Red Cell Distribution Width 16.8 % (11.5-14.5)
[2017-02-09 19:27] LABS: Eosinophils # 0.2 K/mcL (0.0-0.6); Lymphocytes # 1.8 K/mcL (0.6-4.6); Monocytes # 0.2 K/mcL (0.0-1.3); Neutrophils # 15.4 K/mcL (1.6-8.9)
[2017-02-09 19:30] LABS: Platelet Estimate Decreased (Normal); Polychromasia 1+ (Not Present)
[2017-02-10] MEDS: FentaNYL (PF) 1,000 MCG in 0.9 % Sodium Chloride 80 ML IVC SCH ×4 (00:01→20:22)
[2017-02-10] MEDS: Clindamycin 600 MG/50 ML 600 MG/50 ML IV.SOLN IVPB SCH ×3 (00:02→18:23)
[2017-02-10] MEDS: Lacri-Lube 3.5 GM TUBE BOTH EYES SCH ×7 (00:03→23:08)
[2017-02-10] MEDS: Norepinephrine 4 MG in D5% in Water 250 ML IVC SCH (00:10)
[2017-02-10] MEDS: Penicillin G Potassium 4,000,000 UNIT in D5% in Water 100 ML IVPB SCH ×2 (00:22→06:21)
[2017-02-10] MEDS: Dexmedetomidine HCl 400 MCG/100 ML MLS IVC SCH (01:34)
[2017-02-10] MEDS: Insulin LISPRO 300 UNITS/3 ML VIAL SQ SCH ×5 (01:35→23:41)
[2017-02-10 03:22] LABS: Ionized Calcium 1.16 mmol/L (1.15-1.35)
[2017-02-10 03:28] LABS: Calcium 7.8 mg/dL (8.6-10.8); Magnesium 2.1 mg/dL (1.6-2.6); Phosphorous 3.9 mg/dL (2.3-4.7); Potassium 4.6 mEq/L (3.5-4.5)
[2017-02-10 03:38] LABS: Basophils % 0.2 %; Eosinophils # 0.2 K/mcL (0.0-0.6); Eosinophils % 1.2 %; Hematocrit 24.8 % (37.5-50.1); Hemoglobin 8.4 g/dL (12.9-16.9); Immature Granulocytes % 10.3 % (0-4); Lymphocytes # 2.4 K/mcL (0.6-4.6); Lymphocytes % 11.7 %; Mean Corpuscular HGB Conc 33.9 g/dL (31.6-35.5); Mean Corpuscular Hemoglobin 28.8 pg (28.0-33.3); Mean Corpuscular Volume 84.9 fL (83.0-100.0); Mean Platelet Volume 12.2 fL (9.4-12.4); Monocytes # 1.7 K/mcL (0.0-1.3); Monocytes % 8.6 %; Neutrophils # 13.7 K/mcL (1.6-8.9); Nucleated Red Blood Cells 9.1 /100 WBC (0); Red Blood Count 2.92 M/mcL (4.19-5.50)
[2017-02-10 03:39] LABS: Platelet Count 94 K/mcL (140-400)
[2017-02-10 04:06] LABS: Hypochromasia Present (Not Present); Platelet Estimate Slight Decrease (Normal); Polychromasia 1+ (Not Present)
[2017-02-10 05:24] LABS: ABG Base Excess 3.6 mEq/L (-2.0 to 3.0); ABG HCO3 29.1 mEQ/L (21-27); ABG Oxygen Saturation 98 % (95-98); ABG PCO2 48 mmHg (35-45); ABG PH 7.39 pH Units (7.32-7.45); ABG PO2 113 mmHg (85-104); ABG TCO2 30.6 mEq/L (20-26)
[2017-02-10 05:25] LABS: Blood Gas FiO2 60 %
[2017-02-10] MEDS: Pantoprazole 40 MG in 0.9 % Sodium Chloride Mini Bag 100 ML IVC SCH ×6 (05:34→23:40)
[2017-02-10 07:38] LABS: Hematocrit 25.4 % (37.5-50.1); Hemoglobin 8.5 g/dL (12.9-16.9); Mean Corpuscular HGB Conc 33.5 g/dL (31.6-35.5); Mean Corpuscular Hemoglobin 28.6 pg (28.0-33.3); Mean Corpuscular Volume 85.5 fL (83.0-100.0); Mean Platelet Volume 11.7 fL (9.4-12.4); Nucleated Red Blood Cells 9.3 /100 WBC (0); Platelet Count 100 K/mcL (140-400); Red Blood Count 2.97 M/mcL (4.19-5.50); Red Cell Distribution Width 17.1 % (11.5-14.5)
[2017-02-10 07:51] LABS: ANA IgG by ELISA NONE DETECTED (None Detected)
[2017-02-10 08:29] LABS: Lymphocytes # 1.2 K/mcL (0.6-4.6); Monocytes # 0.8 K/mcL (0.0-1.3); Neutrophils # 16.2 K/mcL (1.6-8.9)
[2017-02-10 08:30] LABS: Anisocytosis 1+ (Not Present)
[2017-02-10 08:31] LABS: Platelet Estimate Slight Decrease (Normal); Poikilocytosis 2+ (Not Present); Polychromasia 1+ (Not Present)
[2017-02-10] MEDS: Chlorhexidine Rinse 15 ML MOUTHWASH MM SCH ×2 (08:37→20:04)
[2017-02-10] MEDS: Lactobacillus 1 EACH CAP.SPRINK PO SCH (08:37)
--- NOTE | 2017-02-10 09:38 | General Surgery Progress Note ---
Date of Encounter: 02/10/17 Time of Encounter: 09:36 - Assessment and Plan (1) Duodenal ulcer Current Visit: Yes Status: Acute S/P EGD 02/08/[address] Phan. No evidence of ongoing GI bleeding. Continue NG tube to LIWS. PPI therapy BID with carafate via NGT. (2) Acute blood loss anemia Current Visit: Yes Status: Acute Hgb stable at this time. Continue to monitor. (3) SAGE (acute kidney injury) Current Visit: Yes Status: Acute Cr 2.54 (2.71 yesterday). Nephrology following (4) Cardiomyopathy Current Visit: Yes Status: Acute Cardiology following for recommendations. Qualifiers: Cardiomyopathy type: unspecified Qualified Code(s): I42.9 - Cardiomyopathy , unspecified (5) Acute respiratory failure with hypoxia and hypercapnia Current Visit: Yes Status: Acute Ventilator support Management per pulmonary/critical care team (6) GI bleeding Current Visit: Yes Status: Acute S/P EGD 02/08/[address] Phan. No evidence of active bleeding at this time. Hemoglobin has remained stable. Continue to follow closely. Qualifiers: GI bleed type/associated pathology: duodenal ulcer Qualified Code(s): 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 Subjective Patient reports: other (The patient is intubated, sedated. Levophed stopped this am. NGT output minimal. ) Objective Vital Signs - Last 8 Hours Temp Pulse Resp BP Pulse Ox 02/10/17 09:21 21 115/97 100 02/10/17 08:59 81 16 125/60 100 02/10/17 08:08 17 122/51 97 02/10/17 08:05 98.2 F 02/10/17 08:00 89 19 112/62 100 02/10/17 07:48 75 02/10/17 07:00 98.2 F 75 17 110/49 97 02/10/17 06:00 80 17 117/39 98 02/10/17 05:54 16 111/64 98 02/10/17 05:15 79 02/10/17 05:13 98.3 F 02/10/17 05:00 75 20 105/36 96 02/10/17 04:00 70 16 102/56 97 02/10/17 03:43 17 100/62 98 02/10/17 03:00 73 16 112/65 97 02/10/17 02:00 71 16 103/67 98 02/10/17 01:37 16 100/65 97 Intake and Output 02/09/17 02/10/17 02/10/17 23:59 07:59 15:59 Intake Total 346 / 346 550 / 550 100 / 100 Output Total 550 / 550 425 / 425 550 / 550 Balance -204 / -204 125 / 125 -450 / -450 Intake: IV Fluids 346 / 346 550 / 550 100 / 100 FentaNYL (PF) 1,000 MCG 100 / 100 100 / 100 In 0.9 % Sodium Chloride 80 ML @ 50 MCG/HR 5 mls/ hr IVC CONT [facility] Rx#: [id number] Levophed 4 MG In Dextrose 45 / 45 5% 250 ML @ 8 MCG/MIN 30 mls/hr IVC CONT [facility] Rx#: [id number] Protonix 40 MG In 0.9 % 100 / 100 200 / 200 Sodium Chloride (Mini-Bag +) 100 ML @ 20 mls/hr IVC .Q5H [facility] Rx#: [id number] Cleocin Premix 600 MG/50 50 / 50 50 / 50 ML 600 mg In 50 ml @ 50 mls/hr IVPB Q8HR [facility] Rx#: [id number] Pfizerpen 4,000,000 UNIT 100 / 100 200 / 200 In Dextrose 5% 100 ML @ 100 mls/hr IVPB Q6H [facility] Rx#:[id number] AquaMephyton 10 MG In 0.9 51 / 51 % Sodium Chloride 50 ML @ 102 mls/hr IVPB Q24H [facility] Rx#:[id number] Output: Rectal Tube 300 / 300 300 / 300 Catheter 250 / 250 425 / 425 150 / 150 Gastric Drainage 100 / 100 Other: Weight 135.6 kg Blood Glucose* 150 137 Patient Weight 02/10/17 23:59 Weight 135.6 kg - Abdomen Abdomen: Present: soft, non tender (Unable to assess presence of pain due to sedation. NGT output dark in color, minimal amount. Noted rectal tube with melanotic material. ) - Labs 02/10/17 12:00 02/10/17 03:10 Diabetes panel 02/09/17 02/10/17 Range/Units 14:40 03:10 Sodium 139 141 (136-145) mEq/L Potassium 5.0 H 4.6 H (3.5-4.5) mEq/L Chloride 104 106 (98-109) mEq/L Carbon Dioxide 26 26 (19-29) mEq/L BUN 112 H 115 H (8-26) mg/dL Creatinine 2.71 H 2.54 H (0.72-1.25) mg/dL Glucose 180 H 136 H (70-99) mg/dL Calcium 7.8 L 7.8 L (8.6-10.8) mg/dL Calcium panel 02/08/17 02/09/17 02/10/17 Range/Units 06:39 14:40 03:10 Calcium 7.8 L 7.8 L (8.6-10.8) mg/dL Phosphorus 3.9 (2.3-4.7) mg/dL 25-OH Vitamin D Total 15 L (30-80) ng/mL Pituitary panel 02/09/17 02/10/17 Range/Units 14:40 03:10 Sodium 139 141 (136-145) mEq/L Potassium 5.0 H 4.6 H (3.5-4.5) mEq/L Chloride 104 106 (98-109) mEq/L Carbon Dioxide 26 26 (19-29) mEq/L BUN 112 H 115 H (8-26) mg/dL Creatinine 2.71 H 2.54 H (0.72-1.25) mg/dL Glucose 180 H 136 H (70-99) mg/dL Calcium 7.8 L 7.8 L (8.6-10.8) mg/dL Adrenal panel 02/09/17 02/10/17 Range/Units 14:40 03:10 Sodium 139 141 (136-145) mEq/L Potassium 5.0 H 4.6 H (3.5-4.5) mEq/L Chloride 104 106 (98-109) mEq/L Carbon Dioxide 26 26 (19-29) mEq/L BUN 112 H 115 H (8-26) mg/dL Creatinine 2.71 H 2.54 H (0.72-1.25) mg/dL Glucose 180 H 136 H (70-99) mg/dL Calcium 7.8 L 7.8 L (8.6-10.8) mg/dL Consult Discharge Plan - Plan Referrals: Yasmani Baker MD [Non-Partnered Physician] - (OFFICE WILL NOT MAKE A FOLLOW UP APPOINTMENT FOR THIS PATIENT UNITL WE HAVE A DISCHARGE ORDER)
--- NOTE | 2017-02-10 10:49 | Infectious Disease Progress No ---
Date of Encounter: 02/10/17 Time of Encounter: 11:07 - Assessment and Plan (1) Shock Current Visit: Yes Status: Acute Hemorrhagic vs. septic. Patient required vasopressors, which have been turned off. (2) Severe sepsis Current Visit: Yes Status: Acute The patient had two SIRS criteria plus SAGE, lactic acidosis, and bandemia. Likely secondary to bacteremia and RLE cellulitis. Improved. WBC marginally improved, but he continues to have bandemia. Tachycardia has improved. Lactic acid level is back to normal. Blood cultures drawn 02/05/17 are positive 2/2 sets for GAS. Repeat blood cultures x 2 sets drawn 02/08/17 are NGTD. (3) Bacteremia Current Visit: Yes Status: Acute Causative organism GAS. Source likely RLE cellulitis. Blood cultures drawn 02/05/17 are positive 2/2 sets for GAS. Complicated due to the presence of hardware and pacemaker. No endocarditis stigmata noted on exam. Low index of suspicion for IE. TTE negative for valvular vegetations. Continue Clindamycin 600mg IV Q8H. Continue PCN 4 million units IV Q4H. Continue probiotic BID. Await repeat blood cultures to finalize. Duration of treatment depends on the clinical picture. (4) Cellulitis Current Visit: Yes Status: Acute Although the patient does have erythema to the BLE, I believe that the LLE erythema is more likely secondary to venous stasis dermatitis rather than an acute infection. Likely secondary to venous stasis ulcers. Wound culture of the RLE ulcer positive for Providencia, GAS, and GPC ( presumptively Staph species). CT of the BLE shows evidence of skin thickening of the BLE consistent with cellulitis vs. lymphedema. 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 There is no abscess or evidence of osteomyelitis. Podiatry consulted. Discussed CT findings with Dr. De Santiago re: subsidence of the hardware. Due to motion artifact on the CT, recommends plain film x-rays to evaluate for loosening. X-ray again shows subsidence, but no obvious loosening. Podiatry has been consulted and is following. ESR and CRP are elevated. Continue antibiotics as above. Wound care as outline by the podiatry team. Duration of treatment depends on the clinical picture. Monitor renal function and dose-adjust antibiotics. Qualifiers: Site of cellulitis: extremity Site of cellulitis of extremity: lower extremity Laterality: right Qualified Code(s): L03.115 - Cellulitis of right lower limb (5) SAGE (acute kidney injury) Current Visit: Yes Status: Acute Etiology unclear: SAGE on CKD vs. sepsis vs. other. Serum creatinine beginning to trend down today. Nephrology consulted and following. Renal and bladder UTS non-revealing. Management per the nephrology and primary teams. Dose-adjust antibiotics based on creatinine clearance. (6) Lactic acidosis Current Visit: Yes Status: Resolved Likely secondary to sepsis. Resolved. (7) Hematemesis with nausea Current Visit: Yes Status: Acute Secondary to GI bleed. Status post EGD 02/08/[address] Phan. Large ulcer noted during EGD that required epinephrine and placement of clip. Continues to have blood from the OGT, but markedly decreased in amount. Further management per the GI team. (8) Back pain Current Visit: Yes Status: Acute Secondary to DDD. CT of the C-spine and L-spine completed. Results reviewed. No infectious etiology identified. Qualifiers: Back pain location: low back pain Chronicity: chronic Back pain laterality: midline Sciatica presence: without sciatica Qualified Code(s): M54.5 - Low back pain; G89.29 - Other chronic pain (9) Elevated troponin level Current Visit: Yes Status: Acute Likely demand ischemia secondary to sepsis. Cardiology consulted and following. (10) Acute respiratory failure with hypoxia and hypercapnia Current Visit: Yes Status: Acute Likely secondary to fluid overload from large amount of IVF and blood products on top of CHF. Continues to require full ventilatory support. Pulmonology team consulted and following. (11) GI bleeding Current Visit: Yes Status: Acute Status post EGD 02/08/[address] Phan. Large duodenal ulcer noted requiring epi and hemostasis clip. Continues to have grossly blood stool and OGT drainage, but amount has decreased over the last 24 hours. Hgb stable after multiple blood products. Management per the GI team. 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 Status post transfusion of 5 units PRBCs with additional plasma and platelets as well. Hgb stable around 8. Management per the primary team. Qualifiers: Anemia type: iron deficiency Iron deficiency anemia type: chronic blood loss Qualified Code(s): D50.0 - Iron deficiency anemia secondary to blood loss (chronic) (14) Thrombocytopenia Current Visit: Yes Status: Acute Platelets down to 94 today. Etiology unclear. Continue to trend and monitor closely. (15) A-fib Current Visit: Yes Status: Chronic Qualifiers: Atrial fibrillation type: chronic Qualified Code(s): I48.2 - Chronic atrial fibrillation (16) CAD (coronary artery disease) Current Visit: Yes Status: Chronic Qualifiers: Coronary Disease-Associated Artery/Lesion type: [place] artery [place] vs. transplanted heart: [place] heart Associated angina: without angina Qualified Code(s): I25.10 - Atherosclerotic heart disease of [place] coronary artery without angina pectoris (17) CHF (congestive heart failure) Current Visit: Yes Status: Acute ECHO shows EF 20-25%. Cardiology consulted and following. Qualifiers: Congestive heart failure type: unspecified congestive heart failure type Congestive heart failure chronicity: chronic Qualified Code(s): I50.9 - Heart failure, unspecified (18) Diabetes mellitus Current Visit: Yes Status: Chronic Recommend aggressive glucose monitoring and control. Management per the primary team's recommendations. Qualifiers: Diabetes mellitus type: type 2 Diabetes mellitus complication status: with unspecified complications Diabetes mellitus long winder tender insulin use: without residential use Qualified Code(s): E11.8 - Type 2 diabetes mellitus with unspecified complications - Subjective Interval history: Patient seen and examined. No acute events noted overnight. Patient status post EGD 02/08/17 that noted to have a large duodenal ulcer that required epinephrine injection and clip placement. Additionally, the patient suffered respiratory distress after the EGD and required intubation. He remains sedated on the ventilator. Vasopressors have been stopped. She continues to have gross blood from his OG tube and his rectal tube, but this has continued to decrease in amount. He has received a total of 5 units of packed red cells, 2 plasma, and 1 platelets. His hemoglobin remains stable at 8.5. No other new issues per nursing. Infect Dis PN-Objective Data - Labs CBC & Chem 7: 02/10/17 12:00 02/10/17 03:10 Labs: Laboratory Results - last 24 hr 02/08/17 02/08/17 02/09/17 06:39 06:39 11:37 WBC RBC Hgb Hct MCV MCH MCHC RDW Plt Count MPV Immature Gran % Seg Neutrophils % Band Neutrophils % Lymphocytes % Monocytes % Eosinophils % Basophils % Metamyelocytes % Myelocytes % Promyelocytes % Blast Cells % Neutrophils # Lymphocytes # Monocytes # Eosinophils # Basophils # Nucleated RBCs/100 WBC Platelet Estimate Polychromasia Hypochromasia Poikilocytosis Anisocytosis ABG pH ABG pCO2 ABG pO2 ABG HCO3 ABG Total CO2 ABG O2 Saturation ABG Base Excess Blood Gas Modality Inspired O2 Sodium Potassium Chloride Carbon Dioxide BUN Creatinine Est GFR ( Amer) Est GFR (Non-Af Amer) BUN/Creatinine Ratio Glucose POC Glucose 156 H Calculated Osmolality Calcium Ionized Calcium Phosphorus Magnesium Creatine Kinase 25-OH Vitamin D Total 15 L SHIVANI Screen NONE DETECTED 02/09/17 02/09/17 02/09/17 14:40 16:16 17:49 WBC 20.0 H RBC 3.02 L Hgb 8.5 L Hct 25.7 L MCV 85.1 MCH 28.1 MCHC 33.1 RDW 16.8 H Plt Count 103 L MPV 11.6 Immature Gran % Seg Neutrophils % 70.0 Band Neutrophils % 7.0 H Lymphocytes % 9.0 Monocytes % 1.0 Eosinophils % 1.0 Basophils % Metamyelocytes % 6.0 H Myelocytes % 4.0 H Promyelocytes % 2.0 H Blast Cells % Test Not Performed Neutrophils # 15.4 H Lymphocytes # 1.8 Monocytes # 0.2 Eosinophils # 0.2 Basophils # Nucleated RBCs/100 WBC 6.8 H Platelet Estimate Decreased L Polychromasia 1+ A Hypochromasia Poikilocytosis Anisocytosis ABG pH ABG pCO2 ABG pO2 ABG HCO3 ABG Total CO2 ABG O2 Saturation ABG Base Excess Blood Gas Modality Inspired O2 Sodium 139 Potassium 5.0 H Chloride 104 Carbon Dioxide 26 BUN 112 H Creatinine 2.71 H Est GFR ( Amer) 28 L Est GFR (Non-Af Amer) 23 L BUN/Creatinine Ratio 41 H Glucose 180 H POC Glucose 150 H Calculated Osmolality 328 H Calcium 7.8 L Ionized Calcium Phosphorus Magnesium Creatine Kinase 94 25-OH Vitamin D Total SHIVANI Screen 02/10/17 02/10/17 02/10/17 00:24 03:10 03:10 WBC 20.2 H RBC 2.92 L Hgb 8.4 L Hct 24.8 L MCV 84.9 MCH 28.8 MCHC 33.9 RDW 17.0 H Plt Count 94 L MPV 12.2 Immature Gran % 10.3 H Seg Neutrophils % 68.0 Band Neutrophils % Lymphocytes % 11.7 Monocytes % 8.6 Eosinophils % 1.2 Basophils % 0.2 Metamyelocytes % Myelocytes % Promyelocytes % Blast Cells % Neutrophils # 13.7 H Lymphocytes # 2.4 Monocytes # 1.7 H Eosinophils # 0.2 Basophils # 0.0 Nucleated RBCs/100 WBC 9.1 H Platelet Estimate Slight Decrease L Polychromasia 1+ A Hypochromasia Present A Poikilocytosis Anisocytosis ABG pH ABG pCO2 ABG pO2 ABG HCO3 ABG Total CO2 ABG O2 Saturation ABG Base Excess Blood Gas Modality Inspired O2 Sodium 141 Potassium 4.6 H Chloride 106 Carbon Dioxide 26 BUN 115 H Creatinine 2.54 H Est GFR ( Amer) 30 L Est GFR (Non-Af Amer) 25 L BUN/Creatinine Ratio 45 H Glucose 136 H POC Glucose 140 H Calculated Osmolality 331 H Calcium 7.8 L Ionized Calcium 1.16 Phosphorus 3.9 Magnesium 2.1 Creatine Kinase 25-OH Vitamin D Total SHIVANI Screen 02/10/17 02/10/17 02/10/17 05:15 05:43 06:23 WBC RBC Hgb Hct MCV MCH MCHC RDW Plt Count MPV Immature Gran % Seg Neutrophils % Band Neutrophils % Lymphocytes % Monocytes % Eosinophils % Basophils % Metamyelocytes % Myelocytes % Promyelocytes % Blast Cells % Neutrophils # Lymphocytes # Monocytes # Eosinophils # Basophils # Nucleated RBCs/100 WBC Platelet Estimate Polychromasia Hypochromasia Poikilocytosis Anisocytosis ABG pH 7.39 ABG pCO2 48 H ABG pO2 113 H ABG HCO3 29.1 H ABG Total CO2 30.6 H ABG O2 Saturation 98 ABG Base Excess 3.6 H Blood Gas Modality VCT Inspired O2 60 Sodium Potassium Chloride Carbon Dioxide BUN Creatinine Est GFR ( Amer) Est GFR (Non-Af Amer) BUN/Creatinine Ratio Glucose POC Glucose 141 H 137 H Calculated Osmolality Calcium Ionized Calcium Phosphorus Magnesium Creatine Kinase 25-OH Vitamin D Total SHIVANI Screen 02/10/17 07:15 WBC 19.3 H RBC 2.97 L Hgb 8.5 L Hct 25.4 L MCV 85.5 MCH 28.6 MCHC 33.5 RDW 17.1 H Plt Count 100 L MPV 11.7 Immature Gran % Seg Neutrophils % 70.0 Band Neutrophils % 14.0 H Lymphocytes % 6.0 Monocytes % 4.0 Eosinophils % Basophils % Metamyelocytes % 4.0 H Myelocytes % 2.0 H Promyelocytes % Blast Cells % Neutrophils # 16.2 H Lymphocytes # 1.2 Monocytes # 0.8 Eosinophils # Basophils # Nucleated RBCs/100 WBC 9.3 H Platelet Estimate Slight Decrease L Polychromasia 1+ A Hypochromasia Poikilocytosis 2+ A Anisocytosis 1+ A ABG pH ABG pCO2 ABG pO2 ABG HCO3 ABG Total CO2 ABG O2 Saturation ABG Base Excess Blood Gas Modality Inspired O2 Sodium Potassium Chloride Carbon Dioxide BUN Creatinine Est GFR ( Amer) Est GFR (Non-Af Amer) BUN/Creatinine Ratio Glucose POC Glucose Calculated Osmolality Calcium Ionized Calcium Phosphorus Magnesium Creatine Kinase 25-OH Vitamin D Total SHIVANI Screen Cultures: Cultures 02/08/17 06:45 Blood Culture - Preliminary Peripheral Venipuncture No growth. 02/08/17 06:39 Blood Culture - Preliminary Peripheral Venipuncture No growth. 02/07/17 04:35 Blood Culture - Preliminary Peripheral Venipuncture No growth. Serology 02/07/17 02/07/17 Range/Units 15:26 15:26 Ur Eosinophil Smear 0 (None Seen) % Urine Creatinine 158 mg/dL Urine Microalbumin 103 mg/L Microalb/Creat Ratio 65 H (0-30) Protein/Creatinin Ratio 0.41 H (0-0.20) mg/mg Urine Total Protein 65 H (1-14) mg/dL - Impressions Impressions Head CT 02/09/17 10:37 IMPRESSION: Stable appearance of the brain with no acute intracranial abnormality. D/ / Nik Ellis MD / Nik Ellis MD Interpreting Provider: Nik Ellis MD Lumbar Spine CT 02/09/17 14:30 IMPRESSION: 1. Diffuse osteopenia. No evidence of acute lumbar spine fracture. 2. 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 3. 3.5 cm infrarenal abdominal aortic aneurysm. Follow-up imaging in 1 year is recommended per recommendations listed below. RECOMMENDATIONS: Managing Abdominal Aortic Aneurysms 2.6-2.9 cm: 5 year follow up. 3.0-3.4 cm: 3 year follow up 3.5-3.9 cm: 1 year follow up. 4.0-4.4 cm: 1 year follow up. Recommend vascular consultation. 4.5-5.4 cm: 6 month follow up. Recommend vascular consultation. Greater than or equal to 5.5 cm: Referral to vascular surgeon. Reference: Enrico et al. The care of patients with an abdominal aortic aneurysm: The Society of Vascular Surgery practice guidelines. Journal of Vascular Surgery. Vol 50, Number 85. Kierra et al. Managing Incidental Findings on Abdominal and Pelvic CT and MRI, Part 2: White Paper of the ACR Incidental Findings Committee II on Vascular Findings. J Am Elías Radiol 2013;10:789-794 D/ / 02/09/2017 07:04:39 Amparo Morgan MD / bill Interpreting Provider: Amparo Morgan MD Exam - Constitutional Vitals: Temp Pulse Resp BP Pulse Ox 98.2 F 73 18 104/77 99 02/10/17 08:05 02/10/17 10:00 02/10/17 10:00 02/10/17 10:00 02/10/17 10:00 General appearance: morbidly obese, no acute distress, no febrile - Head Head exam: Present: atraumatic, normal inspection, normocephalic - Eye Eye exam: Present: normal appearance, PERRL Pupils: Present: normal accommodation - ENT ENT exam: Present: mucous membranes moist - Neck Neck exam: Present: normal inspection Additional comments: Triple lumen CVC noted to the right neck with transparent dressing C/D/I. - Respiratory Respiratory exam: Present: CTAB. Absent: rales, respiratory distress, rhonchi, wheezes, tachypnea - Cardiovascular Cardiovascular exam: Present: irregular rhythm. Absent: tachycardia - GI/Abdominal GI/Abdominal exam: Present: distended (obese), normal bowel sounds, soft. Absent: tenderness Additional comments: OGT with small amount of dark red gastric drainage noted in the suction canister. Rectal tube with large amount of dark red liquid stool noted in the collection bag. - Extremities Exam Extremities exam: Present: joint swelling (Right ankle - chronic per family), pedal edema (1+ BLE). Absent: tenderness Additional comments: Erythema to the BLE - likely venous stasis dermatitis. Erythematous, cellulitis skin changes noted to the RLE, improved since Tuesday. Ulcer to the RLE noted to be unchanged in size. Wound bed is 100% slough without active purulent drainage or foul odor. LLE posterior/lateral ulcer noted, improved in size since last exam, without purulent drainage or foul odor. Dry, scabbed ulcer noted to the anterior aspect of the LLE. - Neurological Exam Neurological exam: Present: altered (Sedated, opens eyes spontaneously. Does not follow commands.) - Skin Skin exam: Present: dry, intact, normal color, warm Consult Discharge Plan - Plan Referrals: Samuel,Yasmani Martin MD [Non-Partnered Physician] - (OFFICE WILL NOT MAKE A FOLLOW UP APPOINTMENT FOR THIS PATIENT UNITL WE HAVE A DISCHARGE ORDER) - Attending Attestation I examined this patient and my medical decision-making was reviewed with the SHIRT SEWER/PA/Advanced Practice Nurse/Resident Physician. I agree with the documented findings, disposition and treatment plan as described except to the extent set forth below.
[2017-02-10] MEDS: PENICILLIN POTASSIUM IVPB SCH ×3 (10:52→18:24)
[2017-02-10] MEDS: WATER IVPB SCH ×3 (10:52→18:24)
[2017-02-10] MEDS: D5 IVPB SCH ×3 (10:52→18:24)
--- NOTE | 2017-02-10 10:59 | Electrocardiograph Report ---
[address] [address] Test Date: 2017-02-09 Pat Name: Bello Montanez Department: 109 Room: IC11 Gender: M [employer] Delivery: DENIZ : 1940 Requested By: Carmelo Parker Order Number: [id number] Reading MD: Dandre Yung MD Measurements Intervals [place] Rate: 72 P: [place]: 0 QRS: -39 QRSD: 133 T: 123 QT: 428 QTc: 453 Interpretive Statements ATRIAL FIBRILLATION with pvc or aberrantly conducted complex MARKED LEFT AXIS DEVIATION INTRAVENTRICULAR CONDUCTION DELAY Electronically Signed On 02-10-2017 10:58:14 EDT by Dandre Yung MD
--- NOTE | 2017-02-10 11:16 | Pulmonology Progress Note ---
<Mariano Hamilton - Last Filed: 02/10/17 11:44> Date of Encounter: 02/10/17 Time of Encounter: 06:30 Assessment and Plan (1) Shock Current Visit: Yes Status: Acute Resolved. I think this was likely secondary to hypovolemia from blood loss. He does have a low EF and is also septic. However given the quick resolution with blood products I think this is from his blood loss. (2) Sepsis Current Visit: Yes Status: Acute Patient still has a high white count. However is trending down. afebrile. Repeat blood cultures from February 07 and February 08 show no growth to date. Currently the patient is on penicillin G, clindamycin, and levofloxacin. Wound cultures have grown group A strep as well as providentia resistant to ceftazadime and indeterminate to Unasyn. May consider de-escalating antibiotics. ID following. Appreciate their recommendations. (3) SAGE (acute kidney injury) Current Visit: Yes Status: Acute Creatinine is trending down. Urine output is increasing. No dialysis at this time per nephrology. I Think the etiology was secondary to shock and prerenal from volume loss. (4) Anemia Current Visit: Yes Status: Acute Blood loss anemia. Mild trend down. We will continue to monitor closely. He has had some melena out of the rectal to our think this is old blood. We will continue to watch him closely. Qualifiers: Anemia type: iron deficiency Iron deficiency anemia type: chronic blood loss Qualified Code(s): D50.0 - Iron deficiency anemia secondary to blood loss (chronic) (5) Cardiomyopathy Current Visit: Yes Status: Acute EF of 20-25%. Should consider adding YEHUDA inhibitor and beta randolph when patient is more stable. He will need an ischemic workup as well once are stable. patient is having a lot of ectopy. I discussed with cardiology yesterday. Recommended AMioderone should he deveop stable ventricular tachycardia. PAtients blood pressure has improve significantly. I will add a low dose of scheduled IV metoprolol. Qualifiers: Cardiomyopathy type: unspecified Qualified Code(s): I42.9 - Cardiomyopathy , unspecified (6) Pacemaker Current Visit: Yes Status: Acute (7) Acute systolic heart failure Current Visit: Yes Status: Acute As stated above. (8) Acute respiratory failure with hypoxia and hypercapnia Current Visit: Yes Status: Acute Secondary to aspiration and volume overload. Currently meeting oxygenation and ventilation goals. Currently he is still somewhat altered and not following commands. We will attempt to wean down FiO2 possible. (9) Duodenal ulcer Current Visit: Yes Status: Acute Continue Protonix drip and Carafate. (10) GI bleeding Current Visit: Yes Status: Acute As stated above. 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 (12) Leukocytosis Current Visit: Yes Status: Acute Still quite elevated. Mild trend down. This is likely secondary to combination of sepsis and GI bleed. (13) Thrombocytopenia Current Visit: Yes Status: Acute Stable with a mild trend down. Continue to follow. (14) Hyperkalemia Current Visit: Yes Status: Acute Improving. (15) DVT prophylaxis Current Visit: Yes Status: Acute Patient did not have any DVT prophylaxis secondary to his acute bleeding as well as having lower extremity wounds. This was reclusion from having pharmacologic and mechanical prophylaxis. However bleeding has stopped. We will add back a low-dose heparin for DVT prophylaxis. Subjective Principal diagnosis: GI bleed, Sepsis, acute systolic CHF. Interval history: No major events overnight. Patient has been weaned off vasopressor agents. He has had approximately 200 mL of melanoma out of the rectal tube. This morning he is opening his eyes matting on the ET tube and moving all his limbs. Objective PUL Vital signs: Last Vital Signs Temp 98.2 F 02/10/17 08:05 Pulse 75 02/10/17 11:00 Resp 18 02/10/17 11:00 BP 130/62 02/10/17 11:00 Pulse Ox 99 02/10/17 11:00 Gen.: This is a well-developed well-nourished 77-year-old male who is currently intubated and sedated. He is currently running on the ET tube and moving all limbs. He did give more sedation now appears to be comfortable and tolerating that well. HEENT: Head is normocephalic and atraumatic. Pupils equally round react to light. Anicteric sclera. ET and NG tube in place. Moist mucous membranes. Heart: Regular rate and rhythm without murmurs rubs or gallops. Is having ectopy on the monitor during the exam. No JVD. Lungs: Has some mild coarse breath sounds bilaterally. Diminished globally. Abdomen: Obese, soft, nondistended. Musculoskeletal: Grossly normal for age no gross defects. Extremities: There is no clubbing, cyanosis. Does have some trace pedal edema. The second toe, right foot does appear to be somewhat necrotic. Integument: The lower extremities and has some erythema of appears to be improving. Does have some superficial leg wounds as well. Lines: He has a right internal jugular CVC. No signs of infection on exam. Ventilator Settings Ventilator Settings: Ventilator Settings, Last 8 Hours Ventilator Mode VC+ Ventilator Mode VC+ Ventilator Mode VC+ Ventilator Mode VC+ Ventilator Mode VC+ Ventilator Mode VC+ Ventilator Mode VC+ Ventilator Mode VC+ Ventilator Mode VC+ Ventilator Mode A/C Ventilator Mode VC+ Ventilator Tidal Volume 500 Setting Ventilator Tidal Volume 500 Setting Ventilator Tidal Volume 500 Setting Ventilator Tidal Volume 500 Setting Ventilator Tidal Volume 500 Setting Ventilator Tidal Volume 500 Setting Ventilator Tidal Volume 500 Setting Ventilator Tidal Volume 500 Setting Ventilator Tidal Volume 500 Setting Ventilator Tidal Volume 500 Setting Ventilator Tidal Volume 500 Setting Ventilator Respiratory Rate 16 Setting Ventilator Respiratory Rate 16 Setting Ventilator Respiratory Rate 16 Setting Ventilator Respiratory Rate 16 Setting Ventilator Respiratory Rate 16 Setting Ventilator Respiratory Rate 16 Setting Ventilator Respiratory Rate 16 Setting Ventilator Respiratory Rate 16 Setting Ventilator Respiratory Rate 16 Setting Ventilator Respiratory Rate 16 Setting Ventilator Respiratory Rate 16 Setting Actual Respiratory Rate 18 Actual Respiratory Rate 18 Actual Respiratory Rate 20 Actual Respiratory Rate 16 Actual Respiratory Rate 16 Actual Respiratory Rate 19 Actual Respiratory Rate 17 Actual Respiratory Rate 16 Actual Respiratory Rate 16 Actual Respiratory Rate 17 Positive End Expiratory 5 Pressure Positive End Expiratory 5 Pressure Positive End Expiratory 5 Pressure Positive End Expiratory 5 Pressure Positive End Expiratory 5 Pressure Positive End Expiratory 5 Pressure Positive End Expiratory 5 Pressure Positive End Expiratory 5 Pressure Positive End Expiratory 5 Pressure Positive End Expiratory 5 Pressure Positive End Expiratory 5 Pressure Peak Inspiratory Airway 19 Pressure Peak Inspiratory Airway 19 Pressure Peak Inspiratory Airway 19 Pressure Peak Inspiratory Airway 19 Pressure Peak Inspiratory Airway 20 Pressure Peak Inspiratory Airway 26 Pressure Peak Inspiratory Airway 20 Pressure Peak Inspiratory Airway 19 Pressure Peak Inspiratory Airway 21 Pressure Peak Inspiratory Airway 22 Pressure Results - Laboratory Findings CBC and BMP: 02/10/17 07:15 02/10/17 03:10 ABG ABG pH 7.39 pH Units (7.32-7.45) 02/10/17 05:15 ABG pCO2 48 mmHg (35-45) H 02/10/17 05:15 ABG pO2 113 mmHg (85-104) H 02/10/17 05:15 ABG O2 Saturation 98 % (95-98) 02/10/17 05:15 PT/INR, D-dimer PT 16.7 Seconds (9.4-12.1) H 02/09/17 07:25 Abnormal lab findings: Abnormal lab results WBC 19.3 K/mcL (4.3-11.1) H 02/10/17 07:15 RBC 2.97 M/mcL (4.19-5.50) L 02/10/17 07:15 Hgb 8.5 g/dL (12.9-16.9) L 02/10/17 07:15 Hct 25.4 % (37.5-50.1) L 02/10/17 07:15 RDW 17.1 % (11.5-14.5) H 02/10/17 07:15 Plt Count 100 K/mcL (140-400) L 02/10/17 07:15 Immature Gran % 10.3 % (0-4) H 02/10/17 03:10 Band Neutrophils % 14.0 % (0-4) H 02/10/17 07:15 Metamyelocytes % 4.0 % (0) H 02/10/17 07:15 Myelocytes % 2.0 % (0) H 02/10/17 07:15 Promyelocytes % 2.0 % (0) H 02/09/17 16:16 Neutrophils # 16.2 K/mcL (1.6-8.9) H 02/10/17 07:15 Nucleated RBCs/100 WBC 9.3 /100 WBC (0) H 02/10/17 07:15 Reactive Lymphocytes Present (Not Present) A 02/08/17 15:46 Platelet Estimate Slight Decrease (Normal) L 02/10/17 07:15 Large Platelets Present (Not Present) A 02/08/17 15:46 Immature Plt Fraction 7.3 % (1.1-6.1) H 02/09/17 03:37 Polychromasia 1+ (Not Present) A 02/10/17 07:15 Hypochromasia Present (Not Present) A 02/10/17 03:10 Poikilocytosis 2+ (Not Present) A 02/10/17 07:15 Anisocytosis 1+ (Not Present) A 02/10/17 07:15 ESR 71 mm/hr (0-10) H 02/07/17 16:02 PT 16.7 Seconds (9.4-12.1) H 02/09/17 07:25 APTT 40.8 Seconds (26.0-36.0) H 02/08/17 00:45 ABG pCO2 48 mmHg (35-45) H 02/10/17 05:15 ABG pO2 113 mmHg (85-104) H 02/10/17 05:15 ABG HCO3 29.1 mEQ/L (21-27) H 02/10/17 05:15 ABG Total CO2 30.6 mEq/L (20-26) H 02/10/17 05:15 ABG Base Excess 3.6 mEq/L (-2.0 to 3.0) H 02/10/17 05:15 Potassium 4.6 mEq/L (3.5-4.5) H 02/10/17 03:10 BUN 115 mg/dL (8-26) H 02/10/17 03:10 Creatinine 2.54 mg/dL (0.72-1.25) H 02/10/17 03:10 Est GFR ( Amer) 30 (> 60) L 02/10/17 03:10 Est GFR (Non-Af Amer) 25 (> 60) L 02/10/17 03:10 BUN/Creatinine Ratio 45 (6-26) H 02/10/17 03:10 Glucose 136 mg/dL (70-99) H 02/10/17 03:10 POC Glucose 137 (58-89) H 02/10/17 06:23 Hemoglobin A1c 6.9 % (-5.6) H 02/06/17 06:18 Calculated Osmolality 331 (280-300) H 02/10/17 03:10 Calcium 7.8 mg/dL (8.6-10.8) L 02/10/17 03:10 Iron 54 mcg/dL (65-175) L 02/08/17 06:39 Transferrin 146 mg/dL (174-364) L 02/08/17 06:39 Ferritin 808 ng/ml (22-275) H 02/08/17 06:39 Total Bilirubin 2.5 mg/dL (0.2-1.2) H 02/09/17 03:37 Direct Bilirubin 1.3 mg/dL (0.0-0.5) H 02/07/17 04:35 AST 64 Units/L (5-34) H 02/09/17 03:37 Troponin I 0.24 ng/mL (0-0.03) H* 02/06/17 18:39 C-Reactive Protein 248 mg/L (Less than 5) H 02/07/17 16:02 B-Natriuretic Peptide 2958 pg/mL (0-100) H 02/05/17 23:05 Serum Total Protein 4.9 g/dL (6.0-8.3) L 02/09/17 03:37 Albumin 1.8 g/dL (3.5-5.0) L 02/09/17 03:37 Albumin/Globulin Ratio 0.6 (1.1-2.2) L 02/09/17 03:37 HDL Cholesterol 16 mg/dL (40-59) L 02/06/17 06:18 Cholesterol/HDL Ratio 6.7 (0-4.9) H 02/06/17 06:18 Vitamin B12 1850 pg/mL (213-816) H 02/08/17 06:39 25-OH Vitamin D Total 15 ng/mL (30-80) L 02/08/17 06:39 Folate 6.4 ng/mL (7.0-31.4) L 02/08/17 06:39 Urine Color [place] (Yellow) A 02/06/17 00:49 Urine Clarity Cloudy (Clear) A 02/06/17 00:49 Ur Specific [place] 1.026 (1.010-1.025) H 02/06/17 00:49 Urine Protein 100 mg/dL (Neg-Trace) H 02/06/17 00:49 Urine Ketones Trace mg/dL (Negative) H 02/06/17 00:49 Urine Blood Moderate (Negative) H 02/06/17 00:49 Urine Bilirubin Moderate (Negative) H 02/06/17 00:49 Ur Leukocyte Esterase Small (Negative) H 02/06/17 00:49 Urine Microscopic RBC 5-15 per hpf (0-3) H 02/06/17 00:49 Urine Microscopic WBC 5-15 per hpf (0-3) H 02/06/17 00:49 Ur Squamous Epith Cells Many per lpf (None-Few) H 02/06/17 00:49 Ur Culture Indicated? YES (NO) A 02/06/17 00:49 Microalb/Creat Ratio 65 (0-30) H 02/07/17 15:26 Protein/Creatinin Ratio 0.41 mg/mg (0-0.20) H 02/07/17 15:26 Urine Total Protein 65 mg/dL (1-14) H 02/07/17 15:26 Streptococcus sp PCR DETECTED (Not Detect) A 02/05/17 23:06 Group A Strep DNA DETECTED (Not Detect) A 02/05/17 23:06 - Microbiology Findings Microbiology Findings: Microbiology, Last 48 Hours 02/08/17 06:45 Blood Culture - Preliminary Peripheral Venipuncture No growth. 02/08/17 06:39 Blood Culture - Preliminary Peripheral Venipuncture No growth. 02/07/17 04:35 Blood Culture - Preliminary Peripheral Venipuncture No growth. - Clinical Findings Intake & Output: Intake & Output 02/09/17 02/10/17 02/10/17 23:59 07:59 15:59 Intake Total 346 / 346 550 / 550 218 / 218 Output Total 550 / 550 425 / 425 550 / 550 Balance -204 / -204 125 / 125 -332 / -332 Weight 135.6 kg Consult Discharge Plan - Plan Referrals: Samuel,Yasmani Martin MD [Non-Partnered Physician] - (OFFICE WILL NOT MAKE A FOLLOW UP APPOINTMENT FOR THIS PATIENT UNITL WE HAVE A DISCHARGE ORDER) <Vivek Valentin - Last Filed: 02/10/17 15:16> Date of Encounter: 02/10/17 Objective PUL Vital signs: Last Vital Signs Temp 98.0 F 02/10/17 11:50 Pulse 72 02/10/17 14:00 Resp 16 02/10/17 14:00 BP 117/57 02/10/17 14:00 Pulse Ox 100 02/10/17 14:00 Ventilator Settings Ventilator Settings: Ventilator Settings, Last 8 Hours Ventilator Mode VC+ Ventilator Mode VC+ Ventilator Mode VC+ Ventilator Mode VC+ Ventilator Mode VC+ Ventilator Mode VC+ Ventilator Mode VC+ Ventilator Mode VC+ Ventilator Mode VC+ Ventilator Mode VC+ Ventilator Tidal Volume 500 Setting Ventilator Tidal Volume 500 Setting Ventilator Tidal Volume 500 Setting Ventilator Tidal Volume 500 Setting Ventilator Tidal Volume 500 Setting Ventilator Tidal Volume 500 Setting Ventilator Tidal Volume 500 Setting Ventilator Tidal Volume 500 Setting Ventilator Tidal Volume 500 Setting Ventilator Tidal Volume 500 Setting Ventilator Respiratory Rate 16 Setting Ventilator Respiratory Rate 16 Setting Ventilator Respiratory Rate 16 Setting Ventilator Respiratory Rate 16 Setting Ventilator Respiratory Rate 16 Setting Ventilator Respiratory Rate 16 Setting Ventilator Respiratory Rate 16 Setting Ventilator Respiratory Rate 16 Setting Ventilator Respiratory Rate 16 Setting Ventilator Respiratory Rate 16 Setting Actual Respiratory Rate 16 Actual Respiratory Rate 16 Actual Respiratory Rate 18 Actual Respiratory Rate 18 Actual Respiratory Rate 18 Actual Respiratory Rate 18 Actual Respiratory Rate 20 Actual Respiratory Rate 16 Actual Respiratory Rate 16 Actual Respiratory Rate 19 Positive End Expiratory 5 Pressure Positive End Expiratory 5 Pressure Positive End Expiratory 5 Pressure Positive End Expiratory 5 Pressure Positive End Expiratory 5 Pressure Positive End Expiratory 5 Pressure Positive End Expiratory 5 Pressure Positive End Expiratory 5 Pressure Positive End Expiratory 5 Pressure Positive End Expiratory 5 Pressure Peak Inspiratory Airway 20 Pressure Peak Inspiratory Airway 20 Pressure Peak Inspiratory Airway 20 Pressure Peak Inspiratory Airway 19 Pressure Peak Inspiratory Airway 19 Pressure Peak Inspiratory Airway 19 Pressure Peak Inspiratory Airway 19 Pressure Peak Inspiratory Airway 19 Pressure Peak Inspiratory Airway 20 Pressure Peak Inspiratory Airway 26 Pressure Results - Laboratory Findings CBC and BMP: 02/10/17 12:00 02/10/17 03:10 ABG ABG pH 7.39 pH Units (7.32-7.45) 02/10/17 05:15 ABG pCO2 48 mmHg (35-45) H 02/10/17 05:15 ABG pO2 113 mmHg (85-104) H 02/10/17 05:15 ABG O2 Saturation 98 % (95-98) 02/10/17 05:15 PT/INR, D-dimer PT 15.1 Seconds (9.4-12.1) H 02/10/17 12:00 Abnormal lab findings: Abnormal lab results WBC 19.3 K/mcL (4.3-11.1) H 02/10/17 07:15 RBC 2.97 M/mcL (4.19-5.50) L 02/10/17 07:15 Hgb 8.5 g/dL (12.9-16.9) L 02/10/17 12:00 Hct 25.8 % (37.5-50.1) L 02/10/17 12:00 RDW 17.1 % (11.5-14.5) H 02/10/17 07:15 Plt Count 100 K/mcL (140-400) L 02/10/17 07:15 Immature Gran % 10.3 % (0-4) H 02/10/17 03:10 Band Neutrophils % 14.0 % (0-4) H 02/10/17 07:15 Metamyelocytes % 4.0 % (0) H 02/10/17 07:15 Myelocytes % 2.0 % (0) H 02/10/17 07:15 Promyelocytes % 2.0 % (0) H 02/09/17 16:16 Neutrophils # 16.2 K/mcL (1.6-8.9) H 02/10/17 07:15 Nucleated RBCs/100 WBC 9.3 /100 WBC (0) H 02/10/17 07:15 Reactive Lymphocytes Present (Not Present) A 02/08/17 15:46 Platelet Estimate Slight Decrease (Normal) L 02/10/17 07:15 Large Platelets Present (Not Present) A 02/08/17 15:46 Immature Plt Fraction 7.3 % (1.1-6.1) H 02/09/17 03:37 Polychromasia 1+ (Not Present) A 02/10/17 07:15 Hypochromasia Present (Not Present) A 02/10/17 03:10 Poikilocytosis 2+ (Not Present) A 02/10/17 07:15 Anisocytosis 1+ (Not Present) A 02/10/17 07:15 ESR 71 mm/hr (0-10) H 02/07/17 16:02 PT 15.1 Seconds (9.4-12.1) H 02/10/17 12:00 APTT 40.8 Seconds (26.0-36.0) H 02/08/17 00:45 ABG pCO2 48 mmHg (35-45) H 02/10/17 05:15 ABG pO2 113 mmHg (85-104) H 02/10/17 05:15 ABG HCO3 29.1 mEQ/L (21-27) H 02/10/17 05:15 ABG Total CO2 30.6 mEq/L (20-26) H 02/10/17 05:15 ABG Base Excess 3.6 mEq/L (-2.0 to 3.0) H 02/10/17 05:15 Potassium 4.6 mEq/L (3.5-4.5) H 02/10/17 03:10 BUN 115 mg/dL (8-26) H 02/10/17 03:10 Creatinine 2.54 mg/dL (0.72-1.25) H 02/10/17 03:10 Est GFR ( Amer) 30 (> 60) L 02/10/17 03:10 Est GFR (Non-Af Amer) 25 (> 60) L 02/10/17 03:10 BUN/Creatinine Ratio 45 (6-26) H 02/10/17 03:10 Glucose 136 mg/dL (70-99) H 02/10/17 03:10 POC Glucose 156 (58-89) H 02/10/17 11:33 Hemoglobin A1c 6.9 % (-5.6) H 02/06/17 06:18 Calculated Osmolality 331 (280-300) H 02/10/17 03:10 Calcium 7.8 mg/dL (8.6-10.8) L 02/10/17 03:10 Iron 54 mcg/dL (65-175) L 02/08/17 06:39 Transferrin 146 mg/dL (174-364) L 02/08/17 06:39 Ferritin 808 ng/ml (22-275) H 02/08/17 06:39 Total Bilirubin 2.5 mg/dL (0.2-1.2) H 02/09/17 03:37 Direct Bilirubin 1.3 mg/dL (0.0-0.5) H 02/07/17 04:35 AST 64 Units/L (5-34) H 02/09/17 03:37 Troponin I 0.24 ng/mL (0-0.03) H* 02/06/17 18:39 C-Reactive Protein 248 mg/L (Less than 5) H 02/07/17 16:02 B-Natriuretic Peptide 2958 pg/mL (0-100) H 02/05/17 23:05 Serum Total Protein 4.9 g/dL (6.0-8.3) L 02/09/17 03:37 Total Protein (PEP) 5.10 g/dL (6.00-8.30) L 02/08/17 06:39 Albumin 1.8 g/dL (3.5-5.0) L 02/09/17 03:37 Albumin (PEP) 2.16 g/dL (3.75-5.01) L 02/08/17 06:39 Albumin/Globulin Ratio 0.6 (1.1-2.2) L 02/09/17 03:37 Ltysm-1-Yrvrcnzpi 0.53 g/dL (0.19-0.46) H 02/08/17 06:39 HDL Cholesterol 16 mg/dL (40-59) L 02/06/17 06:18 Cholesterol/HDL Ratio 6.7 (0-4.9) H 02/06/17 06:18 Vitamin B12 1850 pg/mL (213-816) H 02/08/17 06:39 25-OH Vitamin D Total 15 ng/mL (30-80) L 02/08/17 06:39 Folate 6.4 ng/mL (7.0-31.4) L 02/08/17 06:39 Urine Color [place] (Yellow) A 02/06/17 00:49 Urine Clarity Cloudy (Clear) A 02/06/17 00:49 Ur Specific [place] 1.026 (1.010-1.025) H 02/06/17 00:49 Urine Protein 100 mg/dL (Neg-Trace) H 02/06/17 00:49 Urine Ketones Trace mg/dL (Negative) H 02/06/17 00:49 Urine Blood Moderate (Negative) H 02/06/17 00:49 Urine Bilirubin Moderate (Negative) H 02/06/17 00:49 Ur Leukocyte Esterase Small (Negative) H 02/06/17 00:49 Urine Microscopic RBC 5-15 per hpf (0-3) H 02/06/17 00:49 Urine Microscopic WBC 5-15 per hpf (0-3) H 02/06/17 00:49 Ur Squamous Epith Cells Many per lpf (None-Few) H 02/06/17 00:49 Ur Culture Indicated? YES (NO) A 02/06/17 00:49 Microalb/Creat Ratio 65 (0-30) H 02/07/17 15:26 Protein/Creatinin Ratio 0.41 mg/mg (0-0.20) H 02/07/17 15:26 Urine Total Protein 65 mg/dL (1-14) H 02/07/17 15:26 Streptococcus sp PCR DETECTED (Not Detect) A 02/05/17 23:06 Group A Strep DNA DETECTED (Not Detect) A 02/05/17 23:06 - Microbiology Findings Microbiology Findings: Microbiology, Last 48 Hours 02/08/17 06:45 Blood Culture - Preliminary Peripheral Venipuncture No growth. 02/08/17 06:39 Blood Culture - Preliminary Peripheral Venipuncture No growth. - Clinical Findings Intake & Output: Intake & Output 02/09/17 02/10/17 02/10/17 23:59 07:59 15:59 Intake Total 346 / 346 550 / 550 318 / 318 Output Total 550 / 550 425 / 425 850 / 850 Balance -204 / -204 125 / 125 -532 / -532 Weight 135.6 kg
[2017-02-10] MEDS: *HR* Metoprolol 5 MG/5 ML VIAL IVP SCH ×3 (11:54→23:09)
[2017-02-10 12:10] LABS: Hematocrit 25.8 % (37.5-50.1); Hemoglobin 8.5 g/dL (12.9-16.9)
--- NOTE | 2017-02-10 12:14 | Nephrology Progress Note ---
Date of Encounter: 02/10/17 Time of Encounter: 12:14 - Assessment and Plan (1) SAGE (acute kidney injury) Current Visit: Yes Status: Acute Patient with multifactorial SAGE. No longer oliguric and with increasing UOP. Patient with recovering ATN. No indications for renal replacement therapy. Continue supportive care. Renal dose medications and avoid nephrotoxins. Plan discussed with ICU team. (2) Anemia Current Visit: Yes Status: Acute secondary to GI bleeding. Management per GI and primary team. Hemoglobin seems stable. Qualifiers: Anemia type: iron deficiency Iron deficiency anemia type: chronic blood loss Qualified Code(s): D50.0 - Iron deficiency anemia secondary to blood loss (chronic) (3) Severe sepsis Current Visit: Yes Status: Acute LIkely from leg wounds. Strep pyogenes in wound and blood cultures. Antibiotics per primary team. Septic and hemorrhagic shock both improving. (4) Cellulitis Current Visit: Yes Status: Acute Continue antibiotics and wound nurse care. Qualifiers: Site of cellulitis: extremity Site of cellulitis of extremity: lower extremity Laterality: right Qualified Code(s): L03.115 - Cellulitis of right lower limb (5) Essential hypertension Current Visit: Yes Status: Acute Off pressors. Blood pressure improving. Adjust antihypertensive medications as needed. (6) Diabetes mellitus Current Visit: Yes Status: Chronic Per primary team. Qualifiers: Diabetes mellitus type: type 2 Diabetes mellitus complication status: with unspecified complications Diabetes mellitus mcc insulin use: without mcc use Qualified Code(s): E11.8 - Type 2 diabetes mellitus with unspecified complications (7) CHF (congestive heart failure) Current Visit: Yes Status: Acute Per cardiology Qualifiers: Congestive heart failure type: unspecified congestive heart failure type Congestive heart failure chronicity: chronic Qualified Code(s): I50.9 - Heart failure, unspecified (8) CAD (coronary artery disease) Current Visit: Yes Status: Chronic Per cardiology. Qualifiers: Coronary Disease-Associated Artery/Lesion type: [place] artery [place] vs. transplanted heart: [place] heart Associated angina: without angina Qualified Code(s): I25.10 - Atherosclerotic heart disease of [place] coronary artery without angina pectoris (9) Back pain Current Visit: Yes Status: Acute Imaging revealed Degenerative disk disease. Qualifiers: Back pain location: low back pain Chronicity: chronic Back pain laterality: midline Sciatica presence: without sciatica Qualified Code(s): M54.5 - Low back pain; G89.29 - Other chronic pain Subjective Principal diagnosis: GI bleed, Sepsis, acute systolic CHF. Interval history: Patient intubated and sedated. ROS unobtainable. Objective - Vital Signs Vital signs: Vital Signs Temp Pulse Resp BP Pulse Ox 02/10/17 11:50 98.0 F 02/10/17 11:11 16 127/71 100 02/10/17 11:00 75 18 130/62 99 02/10/17 10:00 73 18 104/77 99 02/10/17 09:21 21 115/97 100 02/10/17 08:59 81 16 125/60 100 02/10/17 08:08 17 122/51 97 02/10/17 08:05 98.2 F 02/10/17 08:00 89 19 112/62 100 02/10/17 07:48 75 02/10/17 07:00 98.2 F 75 17 110/49 97 02/10/17 06:00 80 17 117/39 98 02/10/17 05:54 16 111/64 98 02/10/17 05:15 79 02/10/17 05:13 98.3 F 02/10/17 05:00 75 20 105/36 96 02/10/17 04:00 70 16 102/56 97 02/10/17 03:43 17 100/62 98 02/10/17 03:00 73 16 112/65 97 02/10/17 02:00 71 16 103/67 98 02/10/17 01:37 16 100/65 97 02/10/17 01:23 97.4 F L 02/10/17 01:00 67 17 109/74 98 02/09/17 23:57 16 110/61 98 02/09/17 23:00 80 18 114/66 98 02/09/17 22:00 71 17 95/55 98 02/09/17 21:30 16 95/59 98 02/09/17 21:00 72 17 88/56 98 02/09/17 20:32 97.5 F L 02/09/17 20:00 68 16 94/58 98 02/09/17 19:52 16 94/52 97 02/09/17 19:00 75 16 100/59 98 02/09/17 18:00 80 16 96/66 100 02/09/17 17:40 19 96/60 97 02/09/17 17:00 69 16 96/60 99 02/09/17 16:27 16 92/58 98 02/09/17 16:18 97.5 F L 02/09/17 16:00 69 16 96/58 98 02/09/17 14:32 71 16 93/57 98 02/09/17 13:10 18 86/54 98 02/09/17 13:00 66 16 86/54 98 Intake and Output 02/09/17 02/10/17 02/10/17 23:59 07:59 15:59 Intake Total 346 / 346 550 / 550 318 / 318 Output Total 550 / 550 425 / 425 850 / 850 Balance -204 / -204 125 / 125 -532 / -532 Intake: IV Fluids 346 / 346 550 / 550 318 / 318 FentaNYL (PF) 1,000 MCG 100 / 100 118 / 118 In 0.9 % Sodium Chloride 80 ML @ 50 MCG/HR 5 mls/ hr IVC CONT XIMENA Rx#: [id number] Levophed 4 MG In Dextrose 45 / 45 5% 250 ML @ 8 MCG/MIN 30 mls/hr IVC CONT XIMENA Rx#: [id number] Protonix 40 MG In 0.9 % 100 / 100 200 / 200 100 / 100 Sodium Chloride (Mini-Bag +) 100 ML @ 20 mls/hr IVC .Q5H X[facility] Rx#: [id number] Cleocin Premix 600 MG/50 50 / 50 50 / 50 ML 600 mg In 50 ml @ 50 mls/hr IVPB Q8HR XIMENA Rx#: [id number] Pfizerpen 3,000,000 UNIT 100 / 100 200 / 200 100 / 100 In Dextrose 5% 100 ML @ 100 mls/hr IVPB Q4H [facility] Rx#:[id number] AquaMephyton 10 MG In 0.9 51 / 51 % Sodium Chloride 50 ML @ 102 mls/hr IVPB Q24H XIMENA Rx#:[id number] Output: Rectal Tube 300 / 300 300 / 300 Catheter 250 / 250 425 / 425 450 / 450 Gastric Drainage 100 / 100 Other: Weight 135.6 kg Blood Glucose* 150 137 156 Patient Weight 02/10/17 23:59 Weight 135.6 kg - General Appearance General appearance: Present: well-developed, well-nourished, sedated on ventilator, intubated EENT: Present: ATNC Neck: Present: supple Respiratory: Present: course breath sounds Cardiology: Present: edema, regular rate, regular rhythm Gastrointestinal: Present: normoactive bowel sounds, no tenderness Integumentary: Present: warm and dry Additional Comments: Opens eyes. Musculoskeletal: Present: no cyanosis - Lab 02/10/17 12:00 02/10/17 03:10 Most recent lab results ABG pH 7.39 pH Units (7.32-7.45) 02/10/17 05:15 ABG pCO2 48 mmHg (35-45) H 02/10/17 05:15 ABG pO2 113 mmHg (85-104) H 02/10/17 05:15 ABG HCO3 29.1 mEQ/L (21-27) H 02/10/17 05:15 ABG O2 Saturation 98 % (95-98) 02/10/17 05:15 Calcium 7.8 mg/dL (8.6-10.8) L 02/10/17 03:10 Phosphorus 3.9 mg/dL (2.3-4.7) 02/10/17 03:10 Magnesium 2.1 mg/dL (1.6-2.6) 02/10/17 03:10 Urine Creatinine 158 mg/dL 02/07/17 15:26 Urine Total Protein 65 mg/dL (1-14) H 02/07/17 15:26 Consult Discharge Plan - Plan Referrals: Yasmani Baker MD [Non-Partnered Physician] - (OFFICE WILL NOT MAKE A FOLLOW UP APPOINTMENT FOR THIS PATIENT UNITL WE HAVE A DISCHARGE ORDER)
[2017-02-10 12:25] LABS: INR 1.4; Prothrombin Time 15.1 Seconds (9.4-12.1)
[2017-02-10 13:46] LABS: Alpha 2 Globulin (PEP) 0.59 g/dL (0.48-1.05); Beta Globulin (PEP) 0.79 g/dL (0.48-1.10)
--- NOTE | 2017-02-10 13:47 | Arterial Study Report ---
LE Arterial Physiologic Study Patient Name:Bello Montanez Order Number:[id number] Procedure Date:02/09/2017 Date:1940Age:77 yrs Gender:Male Lt BP:92 / mmHg Rt.BP:100 / 92 mmHgHeart Rate: Location:[facility] Room #: IC11 Supervisor Diagnostic:Lalitha Aguiar RDCS Referring MD:Emiliana Prado INSOLE TACKER static balancer:None Reading MD:Yasmani Guadarrama MD Primary Indications:Diminished pulses, ischemia Risk Factors Yes/No Hypertension Yes Diabetes Yes Impressions: 1) Bilateral lower extremities waveform demonstrates normal hemodynamics. 2) bilateral Ankle Brachial Index is normal. 3) Overall Impression: Arterial hemodynamics are well maintained at rest. Recommendations: Preliminary given to Pt RN at bedside. Findings LE Arterial Physiologic Exam: PVR: Right: The PVR waveforms are normal in the right ankle. Left: The PVR waveforms are normal in the left ankle. Prior Study: No significant change compared to prior study dated: 01/15/2015. Segmental Pressures Side Location Pressure Index Result Right Posterior Tibial 151 1.51 Normal Right Dorsalis Pedis 150 1.50 Normal Left Posterior Tibial 142 1.42 Normal Left Dorsalis Pedis 147 1.47 Normal Ankle Brachial Index Right Systolic Diastolic [place] Brachial 100 1.51 Dorsalis Pedis 150 1.50 Posterior Tibial 151 1.51 Left Systolic Diastolic [place] Brachial 92 1.47 Dorsalis Pedis 147 1.47 Posterior Tibial 142 1.42 Updated by Yasmani Guadarrama MD on 02/10/2017 1:38:02 PM with Status of Final electronically signed on 02/10/2017 1:41:25 PM with status of Final
[2017-02-10 13:55] LABS: IFE Reflexed NOT DONE
[2017-02-10] MEDS: *HR* Heparin 5,000 UNIT/ML VIAL SQ SCH (18:22)
[2017-02-10] MEDS: Piperacillin/Tazobactam 3.375 GM in D5% in Water (Mini-Bag+) 100 ML IVPB SCH (23:11)
[2017-02-11] MEDS: FentaNYL (PF) 1,000 MCG in 0.9 % Sodium Chloride 80 ML IVC SCH ×5 (00:46→21:03)
[2017-02-11] MEDS: Pantoprazole 40 MG in 0.9 % Sodium Chloride Mini Bag 100 ML IVC SCH (05:32)
[2017-02-11] MEDS: *HR* Metoprolol 5 MG/5 ML VIAL IVP SCH ×5 (05:32→23:09)
[2017-02-11 05:33] LABS: Basophils # 0.1 K/mcL (0.0-0.2); Basophils % 0.4 %; Eosinophils # 0.4 K/mcL (0.0-0.6); Eosinophils % 1.7 %; Hematocrit 26.3 % (37.5-50.1); Hemoglobin 8.5 g/dL (12.9-16.9); Immature Granulocytes % 10.3 % (0-4); Lymphocytes # 2.3 K/mcL (0.6-4.6); Lymphocytes % 10.6 %; Mean Corpuscular HGB Conc 32.3 g/dL (31.6-35.5); Mean Corpuscular Hemoglobin 28.3 pg (28.0-33.3); Mean Corpuscular Volume 87.7 fL (83.0-100.0); Mean Platelet Volume 11.9 fL (9.4-12.4); Monocytes # 1.6 K/mcL (0.0-1.3); Monocytes % 7.3 %; Neutrophils # 15.2 K/mcL (1.6-8.9); Nucleated Red Blood Cells 6.7 /100 WBC (0); Platelet Count 109 K/mcL (140-400); Red Cell Distribution Width 17.6 % (11.5-14.5); Segmented Neutrophils % 69.7 %
[2017-02-11] MEDS: Lacri-Lube 3.5 GM TUBE BOTH EYES SCH ×6 (05:33→23:07)
[2017-02-11] MEDS: *HR* Heparin 5,000 UNIT/ML VIAL SQ SCH ×2 (05:33→17:53)
[2017-02-11 05:37] LABS: INR 1.4; Ionized Calcium 1.18 mmol/L (1.15-1.35); Prothrombin Time 15.4 Seconds (9.4-12.1)
[2017-02-11 05:44] LABS: Calcium 8.1 mg/dL (8.6-10.8); Magnesium 2.3 mg/dL (1.6-2.6); Phosphorous 3.8 mg/dL (2.3-4.7); Potassium 4.1 mEq/L (3.5-4.5)
[2017-02-11] MEDS: Insulin LISPRO 300 UNITS/3 ML VIAL SQ SCH ×5 (06:00→23:23)
[2017-02-11 06:11] LABS: Anisocytosis 1+ (Not Present); Platelet Estimate Normal (Normal); Poikilocytosis 1+ (Not Present); Polychromasia 1+ (Not Present)
--- NOTE | 2017-02-11 08:23 | Pulmonology Progress Note ---
<Mariano Hamilton - Last Filed: 02/11/17 08:18> Date of Encounter: 02/11/17 Time of Encounter: 08:18 Assessment and Plan (1) Shock Current Visit: Yes Status: Acute Resolved. I think this was likely secondary to hypovolemia from blood loss. He continues to be hemodynamically stable. He does have a low EF and is also septic. However given the quick resolution with blood products I think this is from his blood loss. (2) Sepsis Current Visit: Yes Status: Acute Patient still has a high white count. This is trending up today. Tmax 100.2 Repeat blood cultures from February 07 and February 08 show no growth to date. Discussed patient last night with Dr. Bunn. We have switched to Zosyn as a single agent. DC clindamycin, Pen G, and Levofloxacin. Wound cultures have grown group A strep as well as providentia resistant to ceftazadime and indeterminate to Unasyn. Increasing WBC and Temp. Persistant infection versus stress? I do not believe this is secondary to antibiotic change given that this was changed around 8:00 PM last night. We will repeat cultures. CXR and UA. doubt pneumonia as we are weaning FiO2 and ID following. Appreciate their recommendations. (3) SAGE (acute kidney injury) Current Visit: Yes Status: Acute Creatinine is trending down. Urine output continues to improve I Think the etiology was secondary to shock and prerenal from volume loss. (4) Anemia Current Visit: Yes Status: Acute Blood loss anemia. stable Qualifiers: Anemia type: iron deficiency Iron deficiency anemia type: chronic blood loss Qualified Code(s): D50.0 - Iron deficiency anemia secondary to blood loss (chronic) (5) Cardiomyopathy Current Visit: Yes Status: Acute EF of 20-25%. Should consider adding YEHUDA inhibitor and beta randolph when patient is more stable. He will need an ischemic workup as well once are stable. Qualifiers: Cardiomyopathy type: unspecified Qualified Code(s): I42.9 - Cardiomyopathy , unspecified (6) Pacemaker Current Visit: Yes Status: Acute (7) Acute systolic heart failure Current Visit: Yes Status: Acute As stated above. (8) Acute respiratory failure with hypoxia and hypercapnia Current Visit: Yes Status: Acute Secondary to aspiration and volume overload. Currently meeting oxygenation and ventilation goals. Currently he is still somewhat altered and not following commands. Failed SBT this AM. Continue mechanical ventilation. Will reassess tomorrow. (9) Duodenal ulcer Current Visit: Yes Status: Acute Continue Protonix drip and Carafate. (10) GI bleeding Current Visit: Yes Status: Acute As stated above. 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 (12) Leukocytosis Current Visit: Yes Status: Acute trending up (13) Thrombocytopenia Current Visit: Yes Status: Acute Stable /trending up (14) Hyperkalemia Current Visit: Yes Status: Acute resolved (15) DVT prophylaxis Current Visit: Yes Status: Acute SQ heparin Subjective Principal diagnosis: GI bleed, Sepsis, acute systolic CHF. Interval history: No major events overnight. Patient continues to be hemodynamically stable. HE dose not require vassopressors at this time. Patient has been weaned down on FiO2 but failed SBT ( not following commands/ tachypnea). Patient is now tolerating vent with sedation . Objective PUL Vital signs: Last Vital Signs Temp 98.5 F 02/11/17 07:15 Pulse 75 02/11/17 06:00 Resp 18 02/11/17 07:54 BP 106/59 02/11/17 07:54 Pulse Ox 94 02/11/17 07:54 Gen.: This is a well-developed well-nourished 77-year-old male. He is currently on mechanical ventilation appears to be tolerating that well. He is on fentanyl. HEENT: Pupils are equally round and reactive to light. Anicteric sclera. Normal external appearance of the ears nose and eyes. He does have an NG tube with bloody drainage. He has a ET tube. Trachea is midline. There is a right central venous catheter that is clean well-dressed. Heart: Regular rate and rhythm. No murmurs rubs or gallops. No JVD. Lungs: He has a normal rise and expansion of the chest wall bilaterally. Clear to auscultation bilaterally. Abdomen: The abdomen is obese, nondistended, nontender to palpation. Some mild ecchymosis at the pannus. Musculoskeletal: Grossly normal for age no gross deformities noted. Does have what appears to be ischemic second toe on the right foot. Extremities: There is no clubbing or cyanosis. Does have some lower extremity edema 1+. The bilateral lower extremities are clean and well-dressed. Integument: No other rashes or lesions were noted. Lines: He has a right internal jugular central venous catheter. Is currently clean well-dressed no signs of infection. He has a NG tube, An endotracheal tube, Patel catheter, rectal to. Ventilator Settings Ventilator Settings: Ventilator Settings, Last 8 Hours Ventilator Mode VC+ Ventilator Mode VC+ Ventilator Mode VC+ Ventilator Mode VC+ Ventilator Mode VC+ Ventilator Mode VC+ Ventilator Mode VC+ Ventilator Mode VC+ Ventilator Mode VC+ Ventilator Mode VC+ Ventilator Tidal Volume 500 Setting Ventilator Tidal Volume 500 Setting Ventilator Tidal Volume 500 Setting Ventilator Tidal Volume 500 Setting Ventilator Tidal Volume 500 Setting Ventilator Tidal Volume 500 Setting Ventilator Tidal Volume 500 Setting Ventilator Tidal Volume 500 Setting Ventilator Tidal Volume 500 Setting Ventilator Tidal Volume 500 Setting Ventilator Respiratory Rate 16 Setting Ventilator Respiratory Rate 16 Setting Ventilator Respiratory Rate 16 Setting Ventilator Respiratory Rate 16 Setting Ventilator Respiratory Rate 16 Setting Ventilator Respiratory Rate 16 Setting Ventilator Respiratory Rate 16 Setting Ventilator Respiratory Rate 16 Setting Ventilator Respiratory Rate 16 Setting Ventilator Respiratory Rate 16 Setting Actual Respiratory Rate 16 Actual Respiratory Rate 17 Actual Respiratory Rate 17 Actual Respiratory Rate 16 Positive End Expiratory 5 Pressure Positive End Expiratory 5 Pressure Positive End Expiratory 5 Pressure Positive End Expiratory 5 Pressure Positive End Expiratory 5 Pressure Positive End Expiratory 5 Pressure Positive End Expiratory 5 Pressure Positive End Expiratory 5 Pressure Positive End Expiratory 5 Pressure Positive End Expiratory 5 Pressure Peak Inspiratory Airway 21 Pressure Peak Inspiratory Airway 25 Pressure Peak Inspiratory Airway 20 Pressure Peak Inspiratory Airway 22 Pressure Results - Laboratory Findings CBC and BMP: 02/11/17 05:25 02/11/17 05:25 ABG ABG pH 7.39 pH Units (7.32-7.45) 02/10/17 05:15 ABG pCO2 48 mmHg (35-45) H 02/10/17 05:15 ABG pO2 113 mmHg (85-104) H 02/10/17 05:15 ABG O2 Saturation 98 % (95-98) 02/10/17 05:15 PT/INR, D-dimer PT 15.4 Seconds (9.4-12.1) H 02/11/17 05:25 Abnormal lab findings: Abnormal lab results WBC 21.8 K/mcL (4.3-11.1) H 02/11/17 05:25 RBC 3.00 M/mcL (4.19-5.50) L 02/11/17 05:25 Hgb 8.5 g/dL (12.9-16.9) L 02/11/17 05:25 Hct 26.3 % (37.5-50.1) L 02/11/17 05:25 RDW 17.6 % (11.5-14.5) H 02/11/17 05:25 Plt Count 109 K/mcL (140-400) L 02/11/17 05:25 Immature Gran % 10.3 % (0-4) H 02/11/17 05:25 Band Neutrophils % 14.0 % (0-4) H 02/10/17 07:15 Metamyelocytes % 4.0 % (0) H 02/10/17 07:15 Myelocytes % 2.0 % (0) H 02/10/17 07:15 Promyelocytes % 2.0 % (0) H 02/09/17 16:16 Neutrophils # 15.2 K/mcL (1.6-8.9) H 02/11/17 05:25 Monocytes # 1.6 K/mcL (0.0-1.3) H 02/11/17 05:25 Nucleated RBCs/100 WBC 6.7 /100 WBC (0) H 02/11/17 05:25 Reactive Lymphocytes Present (Not Present) A 02/08/17 15:46 Large Platelets Present (Not Present) A 02/08/17 15:46 Immature Plt Fraction 7.3 % (1.1-6.1) H 02/09/17 03:37 Polychromasia 1+ (Not Present) A 02/11/17 05:25 Hypochromasia Present (Not Present) A 02/10/17 03:10 Poikilocytosis 1+ (Not Present) A 02/11/17 05:25 Anisocytosis 1+ (Not Present) A 02/11/17 05:25 ESR 71 mm/hr (0-10) H 02/07/17 16:02 PT 15.4 Seconds (9.4-12.1) H 02/11/17 05:25 APTT 40.8 Seconds (26.0-36.0) H 02/08/17 00:45 ABG pCO2 48 mmHg (35-45) H 02/10/17 05:15 ABG pO2 113 mmHg (85-104) H 02/10/17 05:15 ABG HCO3 29.1 mEQ/L (21-27) H 02/10/17 05:15 ABG Total CO2 30.6 mEq/L (20-26) H 02/10/17 05:15 ABG Base Excess 3.6 mEq/L (-2.0 to 3.0) H 02/10/17 05:15 BUN 115 mg/dL (8-26) H 02/11/17 05:25 Creatinine 2.21 mg/dL (0.72-1.25) H 02/11/17 05:25 Est GFR ( Amer) 35 (> 60) L 02/11/17 05:25 Est GFR (Non-Af Amer) 29 (> 60) L 02/11/17 05:25 BUN/Creatinine Ratio 52 (6-26) H 02/11/17 05:25 Glucose 128 mg/dL (70-99) H 02/11/17 05:25 POC Glucose 139 (58-89) H 02/10/17 23:26 Hemoglobin A1c 6.9 % (-5.6) H 02/06/17 06:18 Calculated Osmolality 334 (280-300) H 02/11/17 05:25 Calcium 8.1 mg/dL (8.6-10.8) L 02/11/17 05:25 Iron 54 mcg/dL (65-175) L 02/08/17 06:39 Transferrin 146 mg/dL (174-364) L 02/08/17 06:39 Ferritin 808 ng/ml (22-275) H 02/08/17 06:39 Total Bilirubin 2.5 mg/dL (0.2-1.2) H 02/09/17 03:37 Direct Bilirubin 1.3 mg/dL (0.0-0.5) H 02/07/17 04:35 AST 64 Units/L (5-34) H 02/09/17 03:37 Troponin I 0.24 ng/mL (0-0.03) H* 02/06/17 18:39 C-Reactive Protein 248 mg/L (Less than 5) H 02/07/17 16:02 B-Natriuretic Peptide 2958 pg/mL (0-100) H 02/05/17 23:05 Serum Total Protein 4.9 g/dL (6.0-8.3) L 02/09/17 03:37 Total Protein (PEP) 5.10 g/dL (6.00-8.30) L 02/08/17 06:39 Albumin 1.8 g/dL (3.5-5.0) L 02/09/17 03:37 Albumin (PEP) 2.16 g/dL (3.75-5.01) L 02/08/17 06:39 Albumin/Globulin Ratio 0.6 (1.1-2.2) L 02/09/17 03:37 Gnzsc-3-Huzbusaaz 0.53 g/dL (0.19-0.46) H 02/08/17 06:39 HDL Cholesterol 16 mg/dL (40-59) L 02/06/17 06:18 Cholesterol/HDL Ratio 6.7 (0-4.9) H 02/06/17 06:18 Vitamin B12 1850 pg/mL (213-816) H 02/08/17 06:39 25-OH Vitamin D Total 15 ng/mL (30-80) L 02/08/17 06:39 Folate 6.4 ng/mL (7.0-31.4) L 02/08/17 06:39 Urine Color [place] (Yellow) A 02/06/17 00:49 Urine Clarity Cloudy (Clear) A 02/06/17 00:49 Ur Specific [place] 1.026 (1.010-1.025) H 02/06/17 00:49 Urine Protein 100 mg/dL (Neg-Trace) H 02/06/17 00:49 Urine Ketones Trace mg/dL (Negative) H 02/06/17 00:49 Urine Blood Moderate (Negative) H 02/06/17 00:49 Urine Bilirubin Moderate (Negative) H 02/06/17 00:49 Ur Leukocyte Esterase Small (Negative) H 02/06/17 00:49 Urine Microscopic RBC 5-15 per hpf (0-3) H 02/06/17 00:49 Urine Microscopic WBC 5-15 per hpf (0-3) H 02/06/17 00:49 Ur Squamous Epith Cells Many per lpf (None-Few) H 02/06/17 00:49 Ur Culture Indicated? YES (NO) A 02/06/17 00:49 Microalb/Creat Ratio 65 (0-30) H 02/07/17 15:26 Protein/Creatinin Ratio 0.41 mg/mg (0-0.20) H 02/07/17 15:26 Urine Total Protein 65 mg/dL (1-14) H 02/07/17 15:26 Streptococcus sp PCR DETECTED (Not Detect) A 02/05/17 23:06 Group A Strep DNA DETECTED (Not Detect) A 02/05/17 23:06 - Microbiology Findings Microbiology Findings: Microbiology, Last 48 Hours 02/08/17 06:45 Blood Culture - Preliminary Peripheral Venipuncture No growth. 02/08/17 06:39 Blood Culture - Preliminary Peripheral Venipuncture No growth. - Clinical Findings Intake & Output: Intake & Output 02/10/17 02/11/17 02/11/17 23:59 07:59 15:59 Intake Total 200 / 200 400 / 400 Output Total 650 / 650 1200 / 1200 Balance -450 / -450 -800 / -800 Consult Discharge Plan - Plan Referrals: Samuel,Yasmani Martin MD [Non-Partnered Physician] - (OFFICE WILL NOT MAKE A FOLLOW UP APPOINTMENT FOR THIS PATIENT UNITL WE HAVE A DISCHARGE ORDER) <Vivek Valentin - Last Filed: 02/11/17 12:03> Date of Encounter: 02/11/17 Objective PUL Vital signs: Last Vital Signs Temp 98.5 F 02/11/17 08:00 Pulse 64 02/11/17 11:00 Resp 16 02/11/17 11:39 BP 92/44 02/11/17 11:39 Pulse Ox 98 02/11/17 11:39 Ventilator Settings Ventilator Settings: Ventilator Settings, Last 8 Hours Ventilator Mode VC+ Ventilator Mode VC+ Ventilator Mode VC+ Ventilator Mode VC+ Ventilator Mode VC+ Ventilator Mode VC+ Ventilator Mode VC+ Ventilator Mode VC+ Ventilator Mode VC+ Ventilator Mode VC+ Ventilator Mode VC+ Ventilator Tidal Volume 500 Setting Ventilator Tidal Volume 500 Setting Ventilator Tidal Volume 500 Setting Ventilator Tidal Volume 500 Setting Ventilator Tidal Volume 500 Setting Ventilator Tidal Volume 500 Setting Ventilator Tidal Volume 500 Setting Ventilator Tidal Volume 500 Setting Ventilator Tidal Volume 500 Setting Ventilator Tidal Volume 500 Setting Ventilator Tidal Volume 500 Setting Ventilator Respiratory Rate 16 Setting Ventilator Respiratory Rate 16 Setting Ventilator Respiratory Rate 16 Setting Ventilator Respiratory Rate 16 Setting Ventilator Respiratory Rate 16 Setting Ventilator Respiratory Rate 16 Setting Ventilator Respiratory Rate 16 Setting Ventilator Respiratory Rate 16 Setting Ventilator Respiratory Rate 16 Setting Ventilator Respiratory Rate 16 Setting Ventilator Respiratory Rate 16 Setting Actual Respiratory Rate 16 Actual Respiratory Rate 16 Actual Respiratory Rate 16 Actual Respiratory Rate 17 Actual Respiratory Rate 18 Actual Respiratory Rate 16 Actual Respiratory Rate 16 Actual Respiratory Rate 16 Actual Respiratory Rate 17 Positive End Expiratory 5 Pressure Positive End Expiratory 5 Pressure Positive End Expiratory 5 Pressure Positive End Expiratory 5 Pressure Positive End Expiratory 5 Pressure Positive End Expiratory 5 Pressure Positive End Expiratory 5 Pressure Positive End Expiratory 5 Pressure Positive End Expiratory 5 Pressure Positive End Expiratory 5 Pressure Positive End Expiratory 5 Pressure Peak Inspiratory Airway 21 Pressure Peak Inspiratory Airway 20 Pressure Peak Inspiratory Airway 20 Pressure Peak Inspiratory Airway 24 Pressure Peak Inspiratory Airway 20 Pressure Peak Inspiratory Airway 21 Pressure Peak Inspiratory Airway 21 Pressure Peak Inspiratory Airway 21 Pressure Peak Inspiratory Airway 25 Pressure Results - Laboratory Findings CBC and BMP: 02/11/17 05:25 02/11/17 05:25 ABG ABG pH 7.39 pH Units (7.32-7.45) 02/10/17 05:15 ABG pCO2 48 mmHg (35-45) H 02/10/17 05:15 ABG pO2 113 mmHg (85-104) H 02/10/17 05:15 ABG O2 Saturation 98 % (95-98) 02/10/17 05:15 PT/INR, D-dimer PT 15.4 Seconds (9.4-12.1) H 02/11/17 05:25 Abnormal lab findings: Abnormal lab results WBC 21.8 K/mcL (4.3-11.1) H 02/11/17 05:25 RBC 3.00 M/mcL (4.19-5.50) L 02/11/17 05:25 Hgb 8.5 g/dL (12.9-16.9) L 02/11/17 05:25 Hct 26.3 % (37.5-50.1) L 02/11/17 05:25 RDW 17.6 % (11.5-14.5) H 02/11/17 05:25 Plt Count 109 K/mcL (140-400) L 02/11/17 05:25 Immature Gran % 10.3 % (0-4) H 02/11/17 05:25 Band Neutrophils % 14.0 % (0-4) H 02/10/17 07:15 Metamyelocytes % 4.0 % (0) H 02/10/17 07:15 Myelocytes % 2.0 % (0) H 02/10/17 07:15 Promyelocytes % 2.0 % (0) H 02/09/17 16:16 Neutrophils # 15.2 K/mcL (1.6-8.9) H 02/11/17 05:25 Monocytes # 1.6 K/mcL (0.0-1.3) H 02/11/17 05:25 Nucleated RBCs/100 WBC 6.7 /100 WBC (0) H 02/11/17 05:25 Reactive Lymphocytes Present (Not Present) A 02/08/17 15:46 Large Platelets Present (Not Present) A 02/08/17 15:46 Immature Plt Fraction 7.3 % (1.1-6.1) H 02/09/17 03:37 Polychromasia 1+ (Not Present) A 02/11/17 05:25 Hypochromasia Present (Not Present) A 02/10/17 03:10 Poikilocytosis 1+ (Not Present) A 02/11/17 05:25 Anisocytosis 1+ (Not Present) A 02/11/17 05:25 ESR 71 mm/hr (0-10) H 02/07/17 16:02 PT 15.4 Seconds (9.4-12.1) H 02/11/17 05:25 APTT 40.8 Seconds (26.0-36.0) H 02/08/17 00:45 ABG pCO2 48 mmHg (35-45) H 02/10/17 05:15 ABG pO2 113 mmHg (85-104) H 02/10/17 05:15 ABG HCO3 29.1 mEQ/L (21-27) H 02/10/17 05:15 ABG Total CO2 30.6 mEq/L (20-26) H 02/10/17 05:15 ABG Base Excess 3.6 mEq/L (-2.0 to 3.0) H 02/10/17 05:15 BUN 115 mg/dL (8-26) H 02/11/17 05:25 Creatinine 2.21 mg/dL (0.72-1.25) H 02/11/17 05:25 Est GFR ( Amer) 35 (> 60) L 02/11/17 05:25 Est GFR (Non-Af Amer) 29 (> 60) L 02/11/17 05:25 BUN/Creatinine Ratio 52 (6-26) H 02/11/17 05:25 Glucose 128 mg/dL (70-99) H 02/11/17 05:25 POC Glucose 139 (58-89) H 02/10/17 23:26 Hemoglobin A1c 6.9 % (-5.6) H 02/06/17 06:18 Calculated Osmolality 334 (280-300) H 02/11/17 05:25 Calcium 8.1 mg/dL (8.6-10.8) L 02/11/17 05:25 Iron 54 mcg/dL (65-175) L 02/08/17 06:39 Transferrin 146 mg/dL (174-364) L 02/08/17 06:39 Ferritin 808 ng/ml (22-275) H 02/08/17 06:39 Total Bilirubin 2.5 mg/dL (0.2-1.2) H 02/09/17 03:37 Direct Bilirubin 1.3 mg/dL (0.0-0.5) H 02/07/17 04:35 AST 64 Units/L (5-34) H 02/09/17 03:37 Troponin I 0.24 ng/mL (0-0.03) H* 02/06/17 18:39 C-Reactive Protein 248 mg/L (Less than 5) H 02/07/17 16:02 B-Natriuretic Peptide 2958 pg/mL (0-100) H 02/05/17 23:05 Serum Total Protein 4.9 g/dL (6.0-8.3) L 02/09/17 03:37 Total Protein (PEP) 5.10 g/dL (6.00-8.30) L 02/08/17 06:39 Albumin 1.8 g/dL (3.5-5.0) L 02/09/17 03:37 Albumin (PEP) 2.16 g/dL (3.75-5.01) L 02/08/17 06:39 Albumin/Globulin Ratio 0.6 (1.1-2.2) L 02/09/17 03:37 Xzyfj-0-Sikdaqdgk 0.53 g/dL (0.19-0.46) H 02/08/17 06:39 HDL Cholesterol 16 mg/dL (40-59) L 02/06/17 06:18 Cholesterol/HDL Ratio 6.7 (0-4.9) H 02/06/17 06:18 Vitamin B12 1850 pg/mL (213-816) H 02/08/17 06:39 25-OH Vitamin D Total 15 ng/mL (30-80) L 02/08/17 06:39 Folate 6.4 ng/mL (7.0-31.4) L 02/08/17 06:39 Urine Clarity Cloudy (Clear) A 02/11/17 08:54 Urine Blood Moderate (Negative) H 02/11/17 08:54 Urine Bilirubin Small (Negative) H 02/11/17 08:54 Ur Leukocyte Esterase Trace (Negative) H 02/11/17 08:54 Ur Squamous Epith Cells Moderate per lpf (None-Few) H 02/11/17 08:54 Ur Culture Indicated? YES (NO) A 02/11/17 08:54 Microalb/Creat Ratio 65 (0-30) H 02/07/17 15:26 Protein/Creatinin Ratio 0.41 mg/mg (0-0.20) H 02/07/17 15:26 Urine Total Protein 65 mg/dL (1-14) H 02/07/17 15:26 Streptococcus sp PCR DETECTED (Not Detect) A 02/05/17 23:06 Group A Strep DNA DETECTED (Not Detect) A 02/05/17 23:06 - Clinical Findings Intake & Output: Intake & Output 02/10/17 02/11/17 02/11/17 23:59 07:59 15:59 Intake Total 200 / 200 400 / 400 140 / 140 Output Total 650 / 650 1200 / 1200 Balance -450 / -450 -800 / -800 140 / 140
[2017-02-11] MEDS: Piperacillin/Tazobactam 3.375 GM in D5% in Water (Mini-Bag+) 100 ML IVPB SCH ×3 (08:58→23:07)
[2017-02-11] MEDS: Lactobacillus 1 EACH CAP.SPRINK PO SCH (08:58)
[2017-02-11] MEDS: Chlorhexidine Rinse 15 ML MOUTHWASH MM SCH ×2 (08:58→19:37)
[2017-02-11 10:42] LABS: Bilirubin,Urine Small (Negative); Blood,Urine Moderate (Negative); Clarity,Urine Cloudy (Clear); Color,Urine Yellow (Yellow); Glucose,Urine (UA) Normal (Normal); Ketones,Urine Negative (Negative); Leukocyte Esterase,Urine Trace (Negative); Nitrite,Urine Negative (Negative); PH,Urine 5.5 pH Units (5.0-8.0); Protein,Urine Negative (Neg-Trace); Specific Gravity,Urine 1.021 (1.010-1.025); Urobilinogen,Urine Normal (Normal)
[2017-02-11 10:44] LABS: Bacteria,Urine None Seen per hpf (None-Few); Hyaline Casts,Urine None Seen per lpf (None-Few); RBC,Urine 0-3 per hpf (0-3); Squamous Epithelial Cell,Urine Moderate per lpf (None-Few); WBC,Urine 0-3 per hpf (0-3)
--- NOTE | 2017-02-11 11:14 | Nephrology Progress Note ---
Date of Encounter: 02/11/17 Time of Encounter: 11:30 - Assessment and Plan (1) SAGE (acute kidney injury) Current Visit: Yes Status: Acute SCr improving at 2.21, GFR 29 today with good UOP. baseline SCr as of earlier this month appears to be 1.02, GFR >60 UOP yesterday was 1725cc in the past 24hrs and today so far 750 which is great No acute indication for [employer] at this time Continue to avoid nephrotoxins if possible Lytes WNL (2) Acute respiratory failure with hypoxia and hypercapnia Current Visit: Yes Status: Acute Vent settings per primary team (3) Anemia Current Visit: Yes Status: Acute Hgb low but stable at 8.5, will monitor Qualifiers: Anemia type: iron deficiency Iron deficiency anemia type: chronic blood loss Qualified Code(s): D50.0 - Iron deficiency anemia secondary to blood loss (chronic) (4) Severe sepsis Current Visit: Yes Status: Acute Antibiotics regimen per primary team. Elevated WBCs noted Subjective Principal diagnosis: GI bleed, Sepsis, acute systolic CHF. Interval history: Interim events noted. Pt seen and examined still intubated and sedated. No family member at bedside. Objective - Vital Signs Vital signs: Vital Signs Temp Pulse Resp BP Pulse Ox 02/11/17 10:00 83 16 110/48 94 02/11/17 09:00 77 19 111/61 91 02/11/17 08:26 75 02/11/17 08:00 98.5 F 75 16 107/39 94 02/11/17 07:54 18 106/59 94 02/11/17 07:15 98.5 F 02/11/17 07:00 75 16 105/31 94 02/11/17 06:52 17 109/34 95 02/11/17 06:00 75 19 109/34 93 02/11/17 05:00 100.2 F H 79 25 109/53 94 02/11/17 04:00 68 29 113/59 98 02/11/17 03:14 17 109/84 99 02/11/17 03:00 70 16 109/84 99 02/11/17 02:00 74 24 100/51 98 02/11/17 01:20 16 111/3 97 02/11/17 01:00 63 16 106/37 99 02/11/17 00:20 63 02/11/17 00:00 63 16 111/3 96 02/10/17 23:08 25 111/3 94 02/10/17 23:00 98.5 F 72 16 111/42 99 02/10/17 22:00 67 111/49 99 02/10/17 21:06 16 111/3 99 02/10/17 21:00 65 36 102/54 100 02/10/17 20:00 62 25 104/69 100 02/10/17 19:57 98.1 F 02/10/17 19:35 16 111/3 100 02/10/17 19:00 68 16 106/37 100 02/10/17 18:00 70 16 114/52 100 02/10/17 17:00 75 16 108/72 100 02/10/17 16:00 97.9 F 76 20 108/35 99 02/10/17 15:52 17 87/58 95 02/10/17 15:00 70 16 120/54 95 02/10/17 14:00 72 16 117/57 100 02/10/17 13:25 16 116/49 100 02/10/17 13:00 72 16 128/47 100 02/10/17 12:00 72 16 118/79 100 02/10/17 11:50 98.0 F Intake and Output 02/10/17 02/11/17 02/11/17 23:59 07:59 15:59 Intake Total 200 / 200 400 / 400 Output Total 650 / 650 1200 / 1200 Balance -450 / -450 -800 / -800 Intake: IV Fluids 200 / 200 400 / 400 FentaNYL (PF) 1,000 MCG 100 / 100 200 / 200 In 0.9 % Sodium Chloride 80 ML @ 50 MCG/HR 5 mls/ hr IVC CONT [facility] Rx#: [id number] Protonix 40 MG In 0.9 % 100 / 100 100 / 100 Sodium Chloride (Mini-Bag +) 100 ML @ 20 mls/hr IVC .Q5H [facility] Rx#: [id number] Zosyn 3.375 GM In 100 / 100 Dextrose 5% (Minibag+) 100 ML 100 ML @ 25 mls/hr IVPB Q8HR [facility] Rx#: [id number] Oral 0 / 0 Output: Rectal Tube 450 / 450 Catheter 550 / 550 500 / 500 Gastric Drainage 100 / 100 250 / 250 Other: Stool Color Dark Red Blood Blood Glucose* 139 128 - General Appearance General appearance: Present: chronically ill, sedated on ventilator EENT: Present: ATNC Neck: Present: supple Respiratory: Present: course breath sounds Cardiology: Present: edema (LE bilat with dressing), normal S1, normal S2 Gastrointestinal: Present: no tenderness, no guarding, obese Integumentary: Present: warm and dry Additional Comments: Intubated, sedated Musculoskeletal: Present: no deformities Additional Comments: intubated, sedated - Lab 02/11/17 05:25 02/11/17 05:25 Most recent lab results ABG pH 7.39 pH Units (7.32-7.45) 02/10/17 05:15 ABG pCO2 48 mmHg (35-45) H 02/10/17 05:15 ABG pO2 113 mmHg (85-104) H 02/10/17 05:15 ABG HCO3 29.1 mEQ/L (21-27) H 02/10/17 05:15 ABG O2 Saturation 98 % (95-98) 02/10/17 05:15 Calcium 8.1 mg/dL (8.6-10.8) L 02/11/17 05:25 Phosphorus 3.8 mg/dL (2.3-4.7) 02/11/17 05:25 Magnesium 2.3 mg/dL (1.6-2.6) 02/11/17 05:25 Urine Creatinine 158 mg/dL 02/07/17 15:26 Urine Total Protein 65 mg/dL (1-14) H 02/07/17 15:26 Consult Discharge Plan - Plan Referrals: Yasmani Baker MD [Non-Partnered Physician] - (OFFICE WILL NOT MAKE A FOLLOW UP APPOINTMENT FOR THIS PATIENT UNITL WE HAVE A DISCHARGE ORDER)
--- NOTE | 2017-02-11 12:35 | Infectious Disease Progress No ---
Date of Encounter: 02/11/17 Time of Encounter: 12:32 - Assessment and Plan (1) Shock Current Visit: Yes Status: Acute Hemorrhagic vs. septic. Patient required vasopressors, which have been turned off. (2) Severe sepsis Current Visit: Yes Status: Acute The patient had two SIRS criteria plus SAGE, lactic acidosis, and bandemia. Likely secondary to bacteremia and RLE cellulitis. Improved. WBC remains elevated, but bandemia has resolved. Tachycardia has improved. Lactic acid level is back to normal. Blood cultures drawn 02/05/17 are positive 2/2 sets for GAS. Repeat blood cultures x 2 sets drawn 02/08/17 are NGTD. (3) Bacteremia Current Visit: Yes Status: Acute Causative organism GAS. Source likely RLE cellulitis. Blood cultures drawn 02/05/17 are positive 2/2 sets for GAS. Repeat blood cultures drawn 02/07 x 1 set and 02/08 x 2 sets are NGTD. Complicated due to the presence of hardware and pacemaker. No endocarditis stigmata noted on exam. Low index of suspicion for IE. TTE negative for valvular vegetations. Continue Zosyn 3.375 grams IV Q12H. Continue probiotic BID. Await repeat blood cultures to finalize. Duration of treatment depends on the clinical picture. (4) Cellulitis Current Visit: Yes Status: Acute Although the patient does have erythema to the BLE, I believe that the LLE erythema is more likely secondary to venous stasis dermatitis rather than an acute infection. Likely secondary to venous stasis ulcers. Wound culture of the RLE ulcer positive for Providencia, GAS, and MSSA. CT of the BLE shows evidence of skin thickening of the BLE consistent with cellulitis vs. lymphedema. 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 There is no abscess or evidence of osteomyelitis. Podiatry consulted. Discussed CT findings with Dr. De Santiago re: subsidence of the hardware. Due to motion artifact on the CT, recommends plain film x-rays to evaluate for loosening. X-ray again shows subsidence, but no obvious loosening. Podiatry has been consulted and is following. ESR and CRP are elevated. Continue antibiotics as above. Clinically, the cellulitis has improved. Wound care as outline by the podiatry team. Duration of treatment depends on the clinical picture. Monitor renal function and dose-adjust antibiotics. Qualifiers: Site of cellulitis: extremity Site of cellulitis of extremity: lower extremity Laterality: right Qualified Code(s): L03.115 - Cellulitis of right lower limb (5) SAGE (acute kidney injury) Current Visit: Yes Status: Acute Etiology unclear: SAGE on CKD vs. sepsis vs. other. Serum creatinine continues to trend down today. Nephrology consulted and following. Renal and bladder UTS non-revealing. Management per the nephrology and primary teams. Dose-adjust antibiotics based on creatinine clearance. (6) Lactic acidosis Current Visit: Yes Status: Resolved Likely secondary to sepsis. Resolved. (7) Hematemesis with nausea Current Visit: Yes Status: Acute Secondary to GI bleed. Status post EGD 02/08/[address] Phan. Large ulcer noted during EGD that required epinephrine and placement of clip. Blood from OGT and rectal tube has nearly stopped. Further management per the GI team. (8) Back pain Current Visit: Yes Status: Acute Secondary to DDD. CT of the C-spine and L-spine completed. Results reviewed. No infectious etiology identified. Qualifiers: Back pain location: low back pain Chronicity: chronic Back pain laterality: midline Sciatica presence: without sciatica Qualified Code(s): M54.5 - Low back pain; G89.29 - Other chronic pain (9) Elevated troponin level Current Visit: Yes Status: Acute Likely demand ischemia secondary to sepsis. Cardiology consulted and following. (10) Acute respiratory failure with hypoxia and hypercapnia Current Visit: Yes Status: Acute Likely secondary to fluid overload from large amount of IVF and blood products on top of CHF. Continues to require full ventilatory support. Pulmonology team consulted and following. (11) GI bleeding Current Visit: Yes Status: Acute Status post EGD 02/08/[address] Phan. Large duodenal ulcer noted requiring epi and hemostasis clip. Continues to have grossly blood stool and OGT drainage, but amount has decreased over the last 24 hours. Hgb stable after multiple blood products. Management per the GI team. 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 Status post transfusion of 5 units PRBCs with additional plasma and platelets as well. Hgb stable around 8. Management per the primary team. Qualifiers: Anemia type: iron deficiency Iron deficiency anemia type: chronic blood loss Qualified Code(s): D50.0 - Iron deficiency anemia secondary to blood loss (chronic) (14) Thrombocytopenia Current Visit: Yes Status: Acute Platelet level continues to be low. Etiology unclear. Continue to trend and monitor closely. (15) A-fib Current Visit: Yes Status: Chronic Qualifiers: Atrial fibrillation type: chronic Qualified Code(s): I48.2 - Chronic atrial fibrillation (16) CAD (coronary artery disease) Current Visit: Yes Status: Chronic Qualifiers: Coronary Disease-Associated Artery/Lesion type: [place] artery [place] vs. transplanted heart: [place] heart Associated angina: without angina Qualified Code(s): I25.10 - Atherosclerotic heart disease of [place] coronary artery without angina pectoris (17) CHF (congestive heart failure) Current Visit: Yes Status: Acute ECHO shows EF 20-25%. Cardiology consulted and following. Qualifiers: Congestive heart failure type: unspecified congestive heart failure type Congestive heart failure chronicity: chronic Qualified Code(s): I50.9 - Heart failure, unspecified (18) Diabetes mellitus Current Visit: Yes Status: Chronic Recommend aggressive glucose monitoring and control. Management per the primary team's recommendations. Qualifiers: Diabetes mellitus type: type 2 Diabetes mellitus complication status: with unspecified complications Diabetes mellitus pelota maker insulin use: without mcc use Qualified Code(s): E11.8 - Type 2 diabetes mellitus with unspecified complications - Subjective Interval history: Patient seen and examined with nursing at the bedside. No acute events noted overnight. Patient status post EGD 02/08/17 that noted to have a large duodenal ulcer that required epinephrine injection and clip placement. Additionally, the patient suffered respiratory distress after the EGD and required intubation. He remains sedated on the ventilator. Vasopressors have been stopped. Blood from the OGT and rectal tube have nearly stopped completely. He has received a total of 5 units of packed red cells, 2 plasma, and 1 platelets. His hemoglobin remains stable at 8.5. No other new issues per nursing. Infect Dis PN-Objective Data - Labs CBC & Chem 7: 02/11/17 05:25 02/11/17 05:25 Labs: Laboratory Results - last 24 hr 02/08/17 02/09/17 02/10/17 06:39 16:16 18:30 WBC RBC Hgb Hct MCV MCH MCHC RDW Plt Count MPV Immature Gran % Seg Neutrophils % Lymphocytes % Monocytes % Eosinophils % Basophils % Neutrophils # Lymphocytes # Monocytes # Eosinophils # Basophils # Nucleated RBCs/100 WBC Platelet Estimate Polychromasia Poikilocytosis Anisocytosis Smear Path Review See Below PT INR Sodium Potassium Chloride Carbon Dioxide BUN Creatinine Est GFR ( Amer) Est GFR (Non-Af Amer) BUN/Creatinine Ratio Glucose POC Glucose 130 H Calculated Osmolality Calcium Ionized Calcium Phosphorus Magnesium Prot Electrophor EER SEE NOTE Total Protein (PEP) 5.10 L Albumin (PEP) 2.16 L Hzeye-4-Htwesocxk 0.53 H Cirea-9-Svzijingr 0.59 Beta Globulins 0.79 Gamma Globulins 1.04 PEP Interpretation SEE NOTE Serum Immunofix Reflex NOT DONE Urine Color Urine Clarity Urine pH Ur Specific [place] Urine Protein Urine Glucose (UA) Urine Ketones Urine Blood Urine Nitrite Urine Bilirubin Urine Urobilinogen Ur Leukocyte Esterase Urine Microscopic RBC Urine Microscopic WBC Ur Squamous Epith Cells Urine Bacteria Hyaline Casts Ur Culture Indicated? IgG TNP IgA TNP IgM TNP 02/10/17 02/11/17 02/11/17 23:26 05:25 05:25 WBC 21.8 H RBC 3.00 L Hgb 8.5 L Hct 26.3 L MCV 87.7 MCH 28.3 MCHC 32.3 RDW 17.6 H Plt Count 109 L MPV 11.9 Immature Gran % 10.3 H Seg Neutrophils % 69.7 Lymphocytes % 10.6 Monocytes % 7.3 Eosinophils % 1.7 Basophils % 0.4 Neutrophils # 15.2 H Lymphocytes # 2.3 Monocytes # 1.6 H Eosinophils # 0.4 Basophils # 0.1 Nucleated RBCs/100 WBC 6.7 H Platelet Estimate Normal Polychromasia 1+ A Poikilocytosis 1+ A Anisocytosis 1+ A Smear Path Review PT 15.4 H INR 1.4 Sodium Potassium Chloride Carbon Dioxide BUN Creatinine Est GFR ( Amer) Est GFR (Non-Af Amer) BUN/Creatinine Ratio Glucose POC Glucose 139 H Calculated Osmolality Calcium Ionized Calcium Phosphorus Magnesium Prot Electrophor EER Total Protein (PEP) Albumin (PEP) Hwole-8-Ylvpnnhvf Oyygd-5-Afygxqjgj Beta Globulins Gamma Globulins PEP Interpretation Serum Immunofix Reflex Urine Color Urine Clarity Urine pH Ur Specific [place] Urine Protein Urine Glucose (UA) Urine Ketones Urine Blood Urine Nitrite Urine Bilirubin Urine Urobilinogen Ur Leukocyte Esterase Urine Microscopic RBC Urine Microscopic WBC Ur Squamous Epith Cells Urine Bacteria Hyaline Casts Ur Culture Indicated? IgG IgA IgM 02/11/17 02/11/17 05:25 08:54 WBC RBC Hgb Hct MCV MCH MCHC RDW Plt Count MPV Immature Gran % Seg Neutrophils % Lymphocytes % Monocytes % Eosinophils % Basophils % Neutrophils # Lymphocytes # Monocytes # Eosinophils # Basophils # Nucleated RBCs/100 WBC Platelet Estimate Polychromasia Poikilocytosis Anisocytosis Smear Path Review PT INR Sodium 143 Potassium 4.1 Chloride 109 Carbon Dioxide 25 BUN 115 H Creatinine 2.21 H Est GFR ( Amer) 35 L Est GFR (Non-Af Amer) 29 L BUN/Creatinine Ratio 52 H Glucose 128 H POC Glucose Calculated Osmolality 334 H Calcium 8.1 L Ionized Calcium 1.18 Phosphorus 3.8 Magnesium 2.3 Prot Electrophor EER Total Protein (PEP) Albumin (PEP) Pawko-8-Yqtovmakj Yggod-9-Hqrohtopz Beta Globulins Gamma Globulins PEP Interpretation Serum Immunofix Reflex Urine Color Yellow Urine Clarity Cloudy A Urine pH 5.5 Ur Specific [place] 1.021 Urine Protein Negative Urine Glucose (UA) Normal Urine Ketones Negative Urine Blood Moderate H Urine Nitrite Negative Urine Bilirubin Small H Urine Urobilinogen Normal Ur Leukocyte Esterase Trace H Urine Microscopic RBC 0-3 Urine Microscopic WBC 0-3 Ur Squamous Epith Cells Moderate H Urine Bacteria None Seen Hyaline Casts None Seen Ur Culture Indicated? YES A IgG IgA IgM Cultures: Cultures 02/08/17 06:45 Blood Culture - Preliminary Peripheral Venipuncture No growth. 02/08/17 06:39 Blood Culture - Preliminary Peripheral Venipuncture No growth. 02/07/17 04:35 Blood Culture - Preliminary Peripheral Venipuncture No growth. Serology 02/11/17 02/07/17 02/07/17 Range/Units 08:54 15:26 15:26 Urine Color Yellow (Yellow) Urine Clarity Cloudy A (Clear) Urine pH 5.5 (5.0-8.0) pH Units Ur Specific [place] 1.021 (1.010-1.025) Urine Protein Negative (Neg-Trace) mg/dL Urine Glucose (UA) Normal (Normal) mg/dL Urine Ketones Negative (Negative) mg/dL Urine Blood Moderate H (Negative) Urine Nitrite Negative (Negative) Urine Bilirubin Small H (Negative) Urine Urobilinogen Normal (Normal) mg/dL Ur Leukocyte Esterase Trace H (Negative) Urine Microscopic RBC 0-3 (0-3) per hpf Urine Microscopic WBC 0-3 (0-3) per hpf Ur Eosinophil Smear 0 (None Seen) % Ur Squamous Epith Cells Moderate H (None-Few) per lpf Urine Bacteria None Seen (None-Few) per hpf Hyaline Casts None Seen (None-Few) per lpf Ur Culture Indicated? YES A (NO) Urine Creatinine 158 mg/dL Urine Microalbumin 103 mg/L Microalb/Creat Ratio 65 H (0-30) Protein/Creatinin Ratio 0.41 H (0-0.20) mg/mg Urine Total Protein 65 H (1-14) mg/dL - Impressions Impressions Chest X-Ray 02/11/17 09:19 IMPRESSION: Stable bilateral pleural effusions with lung base consolidation more prominent on the left. Stable mild interstitial edema. D/ : / 02/11/2017 09:53:13 Tony Cheema MD / bill Interpreting Provider: Tony Cheeam MD Exam - Constitutional Vitals: Temp Pulse Resp BP Pulse Ox 98.5 F 60 16 90/33 98 02/11/17 08:00 02/11/17 12:00 02/11/17 12:00 02/11/17 12:00 02/11/17 12:00 General appearance: morbidly obese, no acute distress, no febrile - Head Head exam: Present: atraumatic, normal inspection, normocephalic - Eye Eye exam: Present: normal appearance, PERRL Pupils: Present: normal accommodation - ENT ENT exam: Present: mucous membranes moist - Neck Neck exam: Present: normal inspection Additional comments: TL CVC noted to the right neck with transparent dressing C/D/I. - Respiratory Respiratory exam: Present: CTAB. Absent: rales, respiratory distress, rhonchi, wheezes Additional comments: O2 via the ventilator. - Cardiovascular Cardiovascular exam: Present: irregular rhythm. Absent: tachycardia - GI/Abdominal GI/Abdominal exam: Present: distended (obese), normal bowel sounds, soft. Absent: tenderness Additional comments: Patel catheter noted to be draining a small amount of dark yellow clear urine. Rectal tube noted with no stool in the collection bag. - Extremities Exam Extremities exam: Present: pedal edema (1+ BLE). Absent: joint swelling, tenderness Additional comments: BLE dressings C/D/I. - Neurological Exam Neurological exam: Present: altered (Remains sedated on Fentanyl. Patient with eyes open, but does not follow commands or attempt communication. Biting the ET tube.) - Skin Skin exam: Present: dry, intact, normal color, warm Consult Discharge Plan - Plan Referrals: Samuel,Yasmani Martin MD [Non-Partnered Physician] - (OFFICE WILL NOT MAKE A FOLLOW UP APPOINTMENT FOR THIS PATIENT UNITL WE HAVE A DISCHARGE ORDER) - Attending Attestation I examined this patient and my medical decision-making was reviewed with the DEGREASER/PA/Advanced Practice Nurse/Resident Physician. I agree with the documented findings, disposition and treatment plan as described except to the extent set forth below.
[2017-02-11] MEDS: Pantoprazole 40 MG VIAL IVP SCH (17:53)
[2017-02-11] MEDS: Dexmedetomidine HCl 400 MCG/100 ML MLS IVC SCH (19:23)
[2017-02-11] MEDS: Norepinephrine 4 MG in D5% in Water 250 ML IVC SCH (19:24)
[2017-02-12] MEDS: Lacri-Lube 3.5 GM TUBE BOTH EYES SCH ×2 (01:56→07:58)
[2017-02-12 03:08] LABS: Hematocrit 24.8 % (37.5-50.1); Hemoglobin 8.1 g/dL (12.9-16.9); Mean Corpuscular HGB Conc 32.7 g/dL (31.6-35.5); Mean Corpuscular Hemoglobin 28.8 pg (28.0-33.3); Mean Corpuscular Volume 88.3 fL (83.0-100.0); Mean Platelet Volume 12.7 fL (9.4-12.4); Nucleated Red Blood Cells 2.4 /100 WBC (0); Platelet Count 100 K/mcL (140-400); Red Blood Count 2.81 M/mcL (4.19-5.50); Red Cell Distribution Width 18.6 % (11.5-14.5)
[2017-02-12 03:13] LABS: Ionized Calcium 1.18 mmol/L (1.15-1.35)
[2017-02-12 03:22] LABS: Calcium 8.1 mg/dL (8.6-10.8); Magnesium 2.4 mg/dL (1.6-2.6); Phosphorous 3.5 mg/dL (2.3-4.7); Potassium 3.5 mEq/L (3.5-4.5)
[2017-02-12 03:28] LABS: Anisocytosis 1+ (Not Present); Eosinophils # 0.9 K/mcL (0.0-0.6); Lymphocytes # 2.6 K/mcL (0.6-4.6); Platelet Estimate Decreased (Normal)
[2017-02-12 03:29] LABS: Large Platelets Present (Not Present); Polychromasia 2+ (Not Present)
[2017-02-12 03:30] LABS: Macrocytosis Present (Not Present); Microcytosis Present (Not Present)
[2017-02-12] MEDS: Pantoprazole 40 MG VIAL IVP SCH ×2 (05:02→17:03)
[2017-02-12] MEDS: *HR* Heparin 5,000 UNIT/ML VIAL SQ SCH ×2 (05:02→17:03)
[2017-02-12] MEDS: *HR* Metoprolol 5 MG/5 ML VIAL IVP SCH ×4 (05:03→22:51)
[2017-02-12] MEDS: Insulin LISPRO 300 UNITS/3 ML VIAL SQ SCH ×4 (05:05→22:50)
[2017-02-12 05:55] LABS: ABG Base Excess 3.1 mEq/L (-2.0 to 3.0); ABG HCO3 27.9 mEQ/L (21-27); ABG Oxygen Saturation 89 % (95-98); ABG PCO2 43 mmHg (35-45); ABG PH 7.42 pH Units (7.32-7.45); ABG PO2 56 mmHg (85-104); ABG TCO2 29.2 mEq/L (20-26)
[2017-02-12 05:56] LABS: Blood Gas FiO2 30 %
[2017-02-12] MEDS: Chlorhexidine Rinse 15 ML MOUTHWASH MM SCH ×2 (07:55→20:10)
[2017-02-12] MEDS: Piperacillin/Tazobactam 3.375 GM in D5% in Water (Mini-Bag+) 100 ML IVPB SCH ×3 (07:55→22:57)
[2017-02-12] MEDS: Lactobacillus 1 EACH CAP.SPRINK PO SCH (07:56)
[2017-02-12] MEDS: Aspirin 81 MG TAB.CHEW PO SCH (07:56)
--- NOTE | 2017-02-12 08:07 | Pulmonology Progress Note ---
Date of Encounter: 02/12/17 Time of Encounter: 08:03 Assessment and Plan (1) Acute respiratory failure with hypoxia and hypercapnia Current Visit: Yes Status: Acute 77-year-old white male with a medical history significant for diabetes and heart failure who initially presented to the emergency room on 02/06/2017 with septic shock and group A strep bacteremia. Hospital course complicated by acute renal failure and acute blood loss anemia secondary to a GI bleed. Patient was intubated after upper GI endoscopy on 02/08/2017. Respiratory failure in the setting of encephalopathy following upper GI endoscopy coupled with hypoxia and hypercapnia. There may be a component of acute CHF contributing in light of his cardiomyopathy (EF 20-25%) coupled with renal failure + IV fluids + blood transfusions. Continue full vent support for now as encephalopathy and SBT failure preclude extubation. He is at risk for requiring tracheostomy if his mental status does not improve. (2) Shock Current Visit: Yes Status: Acute Shock initially secondary to septic shock with group A strep bacteremia. There may be a component of hemorrhagic shock as well. He was hypotensive following EGD, but this improved with resuscitative efforts. CVC placed and patient transiently required low dose vasopressors. Lactate normal with no clinical signs of hypoperfusion. (3) SAGE (acute kidney injury) Current Visit: Yes Status: Acute Acute renal failure is likely secondary to hypoperfusion, as the patient did present in septic shock. Unclear baseline kidney function. Nephrology has been consulted and is following. Continue to trend urine output and Chem-7, UOP is increasing and Cr is recovering. No current indication for hemodialysis. (4) Acute blood loss anemia Current Visit: Yes Status: Acute Acute blood loss anemia secondary to GI bleed. He required 5 units of PRBCs on 02/08/17. Patient is status post upper endoscopy with intervention on duodenal ulcer per GI. Continue IV PPI. Trend hemoglobin and transfuse if less than 7. No current signs of active bleeding. (5) Bacteremia Current Visit: Yes Status: Acute Group A strep bacteremia likely secondary to lower extremity ulcers. He is currently on Zosyn per ID recommendations. Blood cultures have been cleared. Polymicrobial wound cultures of unclear clinical significance. (6) Encephalopathy Current Visit: Yes Status: Acute Encephalopathy likely multifactorial and due to metabolic/toxic causes. Continue supportive measures and minimize sedation as able. CT head was unremarkable. (7) Failure to thrive in adult Current Visit: Yes Status: Acute The patient has been in poor health for some time at home, but he reportedly did not seek out medical care. He has a new cardiomyopathy that may be ischemic , I suspect he has underlying JOVEL cirrhosis, acute renal failure in the setting of likely underlying chronic kidney disease. Now he has an acute severe illness with acute respiratory failure with difficulties weaning from the mechanical ventilator, severe GI bleeding, and group A strep bacteremia. Overall poor prognosis. I discussed goals of care with the patient's daughter/ POA on 02/11/2017. I suspect the patient will failed to wean from the ventilator, and the decision regarding tracheostomy will need to be made sometime next week. The patient remains full code. Total direct critical care time: 35 minutes Subjective Principal diagnosis: GI bleed, Sepsis, acute systolic CHF. Interval history: No acute overnight events. Patient remains encephalopathic. Objective PUL Vital signs: Last Vital Signs Temp 97.2 F L 02/12/17 07:32 Pulse 81 02/12/17 06:00 Resp 16 02/12/17 06:25 BP 105/39 02/12/17 06:25 Pulse Ox 96 02/12/17 06:25 General: Chronically ill appearing, intubated and sedated Eyes: Pupils equal round and reactive to light ENT: Endotracheal tube in place, external ears appear normal Neck: supple, no lymphadenopathy Lungs: Coarse bilateral breath sounds Cardiovascular: Irregular Gastrointestinal: normoactive bowel sounds, soft, non-tender, non-distended, large pannus Integumentary: Chronic venous stasis changes and ulcerations noted of bilateral lower extremities Extremities: no cyanosis, LE edema noted Musculoskeletal: no deformities Neuro: Sedated Ventilator Settings Ventilator Settings: Ventilator Settings, Last 8 Hours Ventilator Mode VC+ Ventilator Mode VC+ Ventilator Mode VC+ Ventilator Mode VC+ Ventilator Mode VC+ Ventilator Mode VC+ Ventilator Mode VC+ Ventilator Mode VC+ Ventilator Mode VC+ Ventilator Mode VC+ Ventilator Mode VC+ Ventilator Tidal Volume 500 Setting Ventilator Tidal Volume 500 Setting Ventilator Tidal Volume 500 Setting Ventilator Tidal Volume 500 Setting Ventilator Tidal Volume 500 Setting Ventilator Tidal Volume 500 Setting Ventilator Tidal Volume 500 Setting Ventilator Tidal Volume 500 Setting Ventilator Tidal Volume 500 Setting Ventilator Tidal Volume 500 Setting Ventilator Tidal Volume 500 Setting Ventilator Respiratory Rate 16 Setting Ventilator Respiratory Rate 16 Setting Ventilator Respiratory Rate 16 Setting Ventilator Respiratory Rate 16 Setting Ventilator Respiratory Rate 16 Setting Ventilator Respiratory Rate 16 Setting Ventilator Respiratory Rate 16 Setting Ventilator Respiratory Rate 16 Setting Ventilator Respiratory Rate 16 Setting Ventilator Respiratory Rate 16 Setting Ventilator Respiratory Rate 16 Setting Actual Respiratory Rate 16 Actual Respiratory Rate 21 Actual Respiratory Rate 21 Actual Respiratory Rate 21 Actual Respiratory Rate 16 Actual Respiratory Rate 16 Actual Respiratory Rate 16 Actual Respiratory Rate 16 Actual Respiratory Rate 18 Actual Respiratory Rate 18 Positive End Expiratory 5 Pressure Positive End Expiratory 5 Pressure Positive End Expiratory 5 Pressure Positive End Expiratory 5 Pressure Positive End Expiratory 5 Pressure Positive End Expiratory 5 Pressure Positive End Expiratory 5 Pressure Positive End Expiratory 5 Pressure Positive End Expiratory 5 Pressure Positive End Expiratory 5 Pressure Positive End Expiratory 5 Pressure Peak Inspiratory Airway 20 Pressure Peak Inspiratory Airway 20 Pressure Peak Inspiratory Airway 20 Pressure Peak Inspiratory Airway 19 Pressure Peak Inspiratory Airway 19 Pressure Peak Inspiratory Airway 19 Pressure Peak Inspiratory Airway 19 Pressure Peak Inspiratory Airway 19 Pressure Peak Inspiratory Airway 20 Pressure Peak Inspiratory Airway 20 Pressure Results - Laboratory Findings CBC and BMP: 02/12/17 03:00 02/12/17 03:00 ABG ABG pH 7.42 pH Units (7.32-7.45) 02/12/17 05:43 ABG pCO2 43 mmHg (35-45) 02/12/17 05:43 ABG pO2 56 mmHg (85-104) L 02/12/17 05:43 ABG O2 Saturation 89 % (95-98) L 02/12/17 05:43 PT/INR, D-dimer PT 15.4 Seconds (9.4-12.1) H 02/11/17 05:25 Abnormal lab findings: Abnormal lab results WBC 22.0 K/mcL (4.3-11.1) H 02/12/17 03:00 RBC 2.81 M/mcL (4.19-5.50) L 02/12/17 03:00 Hgb 8.1 g/dL (12.9-16.9) L 02/12/17 03:00 Hct 24.8 % (37.5-50.1) L 02/12/17 03:00 RDW 18.6 % (11.5-14.5) H 02/12/17 03:00 Plt Count 100 K/mcL (140-400) L 02/12/17 03:00 MPV 12.7 fL (9.4-12.4) H 02/12/17 03:00 Immature Gran % 10.3 % (0-4) H 02/11/17 05:25 Metamyelocytes % 2.0 % (0) H 02/12/17 03:00 Myelocytes % 2.0 % (0) H 02/10/17 07:15 Promyelocytes % 2.0 % (0) H 02/09/17 16:16 Neutrophils # 18.0 K/mcL (1.6-8.9) H 02/12/17 03:00 Monocytes # 1.6 K/mcL (0.0-1.3) H 02/11/17 05:25 Eosinophils # 0.9 K/mcL (0.0-0.6) H 02/12/17 03:00 Nucleated RBCs/100 WBC 2.4 /100 WBC (0) H 02/12/17 03:00 Reactive Lymphocytes Present (Not Present) A 02/08/17 15:46 Platelet Estimate Decreased (Normal) L 02/12/17 03:00 Large Platelets Present (Not Present) A 02/12/17 03:00 Immature Plt Fraction 7.3 % (1.1-6.1) H 02/09/17 03:37 Polychromasia 2+ (Not Present) A 02/12/17 03:00 Hypochromasia Present (Not Present) A 02/10/17 03:10 Poikilocytosis 1+ (Not Present) A 02/11/17 05:25 Anisocytosis 1+ (Not Present) A 02/12/17 03:00 Microcytosis Present (Not Present) A 02/12/17 03:00 Macrocytosis Present (Not Present) A 02/12/17 03:00 ESR 71 mm/hr (0-10) H 02/07/17 16:02 PT 15.4 Seconds (9.4-12.1) H 02/11/17 05:25 APTT 40.8 Seconds (26.0-36.0) H 02/08/17 00:45 ABG pO2 56 mmHg (85-104) L 02/12/17 05:43 ABG HCO3 27.9 mEQ/L (21-27) H 02/12/17 05:43 ABG Total CO2 29.2 mEq/L (20-26) H 02/12/17 05:43 ABG O2 Saturation 89 % (95-98) L 02/12/17 05:43 ABG Base Excess 3.1 mEq/L (-2.0 to 3.0) H 02/12/17 05:43 Chloride 111 mEq/L (98-109) H 02/12/17 03:00 BUN 109 mg/dL (8-26) H 02/12/17 03:00 Creatinine 2.09 mg/dL (0.72-1.25) H 02/12/17 03:00 Est GFR ( Amer) 38 (> 60) L 02/12/17 03:00 Est GFR (Non-Af Amer) 31 (> 60) L 02/12/17 03:00 BUN/Creatinine Ratio 52 (6-26) H 02/12/17 03:00 Glucose 165 mg/dL (70-99) H 02/12/17 03:00 POC Glucose 142 (58-89) H 02/12/17 04:41 Hemoglobin A1c 6.9 % (-5.6) H 02/06/17 06:18 Calculated Osmolality 338 (280-300) H 02/12/17 03:00 Calcium 8.1 mg/dL (8.6-10.8) L 02/12/17 03:00 Iron 54 mcg/dL (65-175) L 02/08/17 06:39 Transferrin 146 mg/dL (174-364) L 02/08/17 06:39 Ferritin 808 ng/ml (22-275) H 02/08/17 06:39 Total Bilirubin 2.5 mg/dL (0.2-1.2) H 02/09/17 03:37 Direct Bilirubin 1.3 mg/dL (0.0-0.5) H 02/07/17 04:35 AST 64 Units/L (5-34) H 02/09/17 03:37 Troponin I 0.24 ng/mL (0-0.03) H* 02/06/17 18:39 C-Reactive Protein 248 mg/L (Less than 5) H 02/07/17 16:02 B-Natriuretic Peptide 2958 pg/mL (0-100) H 02/05/17 23:05 Serum Total Protein 4.9 g/dL (6.0-8.3) L 02/09/17 03:37 Total Protein (PEP) 5.10 g/dL (6.00-8.30) L 02/08/17 06:39 Albumin 1.8 g/dL (3.5-5.0) L 02/09/17 03:37 Albumin (PEP) 2.16 g/dL (3.75-5.01) L 02/08/17 06:39 Albumin/Globulin Ratio 0.6 (1.1-2.2) L 02/09/17 03:37 Knnta-6-Mrkpldnvx 0.53 g/dL (0.19-0.46) H 02/08/17 06:39 HDL Cholesterol 16 mg/dL (40-59) L 02/06/17 06:18 Cholesterol/HDL Ratio 6.7 (0-4.9) H 02/06/17 06:18 Vitamin B12 1850 pg/mL (213-816) H 02/08/17 06:39 25-OH Vitamin D Total 15 ng/mL (30-80) L 02/08/17 06:39 Folate 6.4 ng/mL (7.0-31.4) L 02/08/17 06:39 Urine Clarity Cloudy (Clear) A 02/11/17 08:54 Urine Blood Moderate (Negative) H 02/11/17 08:54 Urine Bilirubin Small (Negative) H 02/11/17 08:54 Ur Leukocyte Esterase Trace (Negative) H 02/11/17 08:54 Ur Squamous Epith Cells Moderate per lpf (None-Few) H 02/11/17 08:54 Ur Culture Indicated? YES (NO) A 02/11/17 08:54 Microalb/Creat Ratio 65 (0-30) H 02/07/17 15:26 Protein/Creatinin Ratio 0.41 mg/mg (0-0.20) H 02/07/17 15:26 Urine Total Protein 65 mg/dL (1-14) H 02/07/17 15:26 Streptococcus sp PCR DETECTED (Not Detect) A 02/05/17 23:06 Group A Strep DNA DETECTED (Not Detect) A 02/05/17 23:06 - Microbiology Findings Microbiology Findings: Microbiology, Last 48 Hours 02/07/17 04:35 Blood Culture - Final Peripheral Venipuncture No growth. - Clinical Findings Intake & Output: Intake & Output 02/11/17 02/12/17 02/12/17 23:59 07:59 15:59 Intake Total 515 / 515 200 / 200 Output Total 950 / 950 475 / 475 Balance -435 / -435 -275 / -275 Consult Discharge Plan - Plan Referrals: Yasmani Baker MD [Non-Partnered Physician] - (OFFICE WILL NOT MAKE A FOLLOW UP APPOINTMENT FOR THIS PATIENT UNITL WE HAVE A DISCHARGE ORDER)
--- NOTE | 2017-02-12 10:59 | Nephrology Progress Note ---
Date of Encounter: 02/12/17 Time of Encounter: 11:00 - Assessment and Plan (1) SAGE (acute kidney injury) Current Visit: Yes Status: Acute SCr continues to improve at 2.09, GFR 31. baseline SCr as of earlier this month appears to be 1.02, GFR >60 UOP good at 1200cc yesterday plus 900cc from rectal tube No acute indication for [employer] at this time Continue to avoid nephrotoxins if possible Lytes WNL (2) Acute respiratory failure with hypoxia and hypercapnia Current Visit: Yes Status: Acute Vent settings per primary team (3) Anemia Current Visit: Yes Status: Acute Hgb low but fairly stable at 8.1, will monitor Qualifiers: Anemia type: iron deficiency Iron deficiency anemia type: chronic blood loss Qualified Code(s): D50.0 - Iron deficiency anemia secondary to blood loss (chronic) (4) Severe sepsis Current Visit: Yes Status: Acute Antibiotics regimen per primary team. Elevated WBCs noted Subjective Principal diagnosis: GI bleed, Sepsis, acute systolic CHF. Interval history: Pt seen and examined still intubated and sedated with nurse at bedside. Failed cPAP trial today Objective - Vital Signs Vital signs: Vital Signs Temp Pulse Resp BP Pulse Ox 02/12/17 09:25 16 105/35 99 02/12/17 08:00 65 16 95/32 97 02/12/17 07:32 97.2 F L 16 105/35 97 02/12/17 07:00 65 16 88/37 97 02/12/17 06:25 16 105/39 96 02/12/17 06:00 81 17 106/40 97 02/12/17 05:00 97.3 F L 64 21 102/58 97 02/12/17 04:27 20 113/34 93 02/12/17 04:18 55 16 108/37 100 02/12/17 03:31 55 16 108/37 100 02/12/17 02:46 66 17 105/35 99 02/12/17 02:01 17 105/35 99 02/12/17 01:43 66 18 107/43 97 02/12/17 00:45 64 20 113/40 100 02/11/17 23:45 64 20 113/40 100 02/11/17 23:44 18 113/40 99 02/11/17 23:18 97.8 F 64 16 93/39 92 02/11/17 22:52 65 17 105/64 99 02/11/17 22:01 17 105/64 99 02/11/17 22:00 65 16 105/64 97 02/11/17 20:57 61 16 105/45 98 02/11/17 20:26 16 105/45 98 02/11/17 19:58 97 F L 56 17 116/39 96 02/11/17 19:00 64 16 119/36 97 02/11/17 18:00 64 16 119/36 97 02/11/17 17:39 19 106/51 99 02/11/17 17:00 61 16 115/38 98 02/11/17 16:00 97.5 F L 64 16 116/52 96 02/11/17 15:38 17 90/65 95 02/11/17 15:00 62 16 106/34 100 02/11/17 14:00 62 16 106/34 100 02/11/17 13:15 16 96/40 98 02/11/17 13:00 98.5 F 58 16 96/40 100 02/11/17 12:00 97.7 F 60 16 90/33 98 02/11/17 11:39 16 92/44 98 02/11/17 11:00 64 16 92/44 98 Intake and Output 02/11/17 02/12/17 02/12/17 23:59 07:59 15:59 Intake Total 515 / 515 200 / 200 Output Total 950 / 950 475 / 475 Balance -435 / -435 -275 / -275 Intake: IV Fluids 300 / 300 200 / 200 FentaNYL (PF) 1,000 MCG 100 / 100 In 0.9 % Sodium Chloride 80 ML @ 50 MCG/HR 5 mls/ hr IVC CONT [facility] Rx#: [id number] Diprivan 1,000 mg In 100 100 / 100 100 / 100 ml @ 5 MCG/KG/MIN 4.068 mls/hr IVC .Q24H [facility] Rx#: [id number] Zosyn 3.375 GM In 100 / 100 100 / 100 Dextrose 5% (Minibag+) 100 ML 100 ML @ 25 mls/hr IVPB Q8HR [facility] Rx#: [id number] Oral 0 / 0 Tube Feeding 175 / 175 78 / 78 Free Water 20 / 20 Free Water Intake Amount 20 / 20 Output: Rectal Tube 500 / 500 300 / 300 Catheter 450 / 450 175 / 175 Other: Blood Glucose* 123 - General Appearance General appearance: Present: chronically ill, sedated on ventilator, intubated EENT: Present: ATNC Neck: Present: no JVD, supple Respiratory: Present: course breath sounds Cardiology: Present: edema (LE bilat), normal S1, normal S2 Gastrointestinal: Present: no tenderness, no guarding, obese Integumentary: Present: warm and dry, erythema (LE bilat) Additional Comments: sedated Musculoskeletal: Present: no deformities Additional Comments: sedated - Lab 02/12/17 03:00 02/12/17 03:00 Most recent lab results ABG pH 7.42 pH Units (7.32-7.45) 02/12/17 05:43 ABG pCO2 43 mmHg (35-45) 02/12/17 05:43 ABG pO2 56 mmHg (85-104) L 02/12/17 05:43 ABG HCO3 27.9 mEQ/L (21-27) H 02/12/17 05:43 ABG O2 Saturation 89 % (95-98) L 02/12/17 05:43 Calcium 8.1 mg/dL (8.6-10.8) L 02/12/17 03:00 Phosphorus 3.5 mg/dL (2.3-4.7) 02/12/17 03:00 Magnesium 2.4 mg/dL (1.6-2.6) 02/12/17 03:00 Urine Creatinine 158 mg/dL 02/07/17 15:26 Urine Total Protein 65 mg/dL (1-14) H 02/07/17 15:26 Consult Discharge Plan - Plan Referrals: Yasmani Baker MD [Non-Partnered Physician] - (OFFICE WILL NOT MAKE A FOLLOW UP APPOINTMENT FOR THIS PATIENT UNITL WE HAVE A DISCHARGE ORDER)
[2017-02-12] MEDS: FentaNYL (PF) 1,000 MCG in 0.9 % Sodium Chloride 80 ML IVC SCH (18:37)
[2017-02-13 03:08] LABS: Hematocrit 25.6 % (37.5-50.1); Immature Platelets 6.1 % (1.1-6.1); Mean Corpuscular HGB Conc 31.3 g/dL (31.6-35.5); Mean Corpuscular Hemoglobin 28.1 pg (28.0-33.3); Mean Corpuscular Volume 89.8 fL (83.0-100.0); Mean Platelet Volume 11.6 fL (9.4-12.4); Nucleated Red Blood Cells 0.8 /100 WBC (0); Platelet Count 124 K/mcL (140-400); Red Blood Count 2.85 M/mcL (4.19-5.50); Red Cell Distribution Width 19.6 % (11.5-14.5)
[2017-02-13 03:12] LABS: INR 1.3; Prothrombin Time 13.9 Seconds (9.4-12.1)
[2017-02-13 03:25] LABS: Albumin/Globulin Ratio 0.4 (1.1-2.2); Bilirubin,Total 3.3 mg/dL (0.2-1.2); Globulin 3.7 g/dL (2.4-3.5); Potassium 3.3 mEq/L (3.5-4.5); Total Protein 5.1 g/dL (6.0-8.3)
[2017-02-13 03:26] LABS: Albumin 1.4 g/dL (3.5-5.0)
[2017-02-13 03:36] LABS: Lymphocytes # 2.4 K/mcL (0.6-4.6); Monocytes # 1.4 K/mcL (0.0-1.3); Platelet Estimate Slight Decrease (Normal)
[2017-02-13 03:37] LABS: Anisocytosis 1+ (Not Present); Polychromasia 1+ (Not Present); Target Cells 1+ (Not Present)
[2017-02-13 03:38] LABS: Large Platelets Present (Not Present); Reactive Lymphocytes Present (Not Present)
[2017-02-13] MEDS: Pantoprazole 40 MG VIAL IVP SCH ×2 (05:04→17:37)
[2017-02-13] MEDS: *HR* Heparin 5,000 UNIT/ML VIAL SQ SCH ×2 (05:04→17:39)
[2017-02-13] MEDS: *HR* Metoprolol 5 MG/5 ML VIAL IVP SCH ×5 (05:08→22:38)
[2017-02-13] MEDS: Insulin LISPRO 300 UNITS/3 ML VIAL SQ SCH ×3 (05:12→17:47)
[2017-02-13] MEDS: Lactobacillus 1 EACH CAP.SPRINK PO SCH (08:35)
[2017-02-13] MEDS: Chlorhexidine Rinse 15 ML MOUTHWASH MM SCH ×2 (08:35→21:37)
[2017-02-13] MEDS: Aspirin 81 MG TAB.CHEW PO SCH (08:35)
[2017-02-13] MEDS: Piperacillin/Tazobactam 3.375 GM in D5% in Water (Mini-Bag+) 100 ML IVPB SCH ×2 (08:36→15:18)
--- NOTE | 2017-02-13 11:02 | Pulmonology Progress Note ---
Date of Encounter: 02/13/17 Time of Encounter: 11:00 Assessment and Plan (1) Acute respiratory failure with hypoxia and hypercapnia Current Visit: Yes Status: Acute 77-year-old white male with a medical history significant for diabetes and heart failure who initially presented to the emergency room on 02/06/2017 with septic shock and group A strep bacteremia. Hospital course complicated by acute renal failure and acute blood loss anemia secondary to a GI bleed. Patient was intubated after upper GI endoscopy on 02/08/2017. Respiratory failure in the setting of encephalopathy following upper GI endoscopy coupled with hypoxia and hypercapnia. There may be a component of acute CHF contributing in light of his cardiomyopathy (EF 20-25%) coupled with renal failure + IV fluids + blood transfusions. Continue full vent support for now as encephalopathy and SBT failure preclude extubation. He is at risk for requiring tracheostomy if his mental status does not improve. (2) Shock Current Visit: Yes Status: Acute Shock initially secondary to septic shock with group A strep bacteremia. There may be a component of hemorrhagic shock as well. He was hypotensive following EGD, but this improved with resuscitative efforts. CVC placed and patient transiently required low dose vasopressors. Lactate normal with no clinical signs of hypoperfusion. Overall resolved. (3) SAGE (acute kidney injury) Current Visit: Yes Status: Acute Acute renal failure is likely secondary to hypoperfusion, as the patient did present in septic shock. Unclear baseline kidney function. Nephrology has been consulted and is following. Continue to trend urine output and Chem-7, UOP is increasing and Cr is recovering. No current indication for hemodialysis. (4) Acute blood loss anemia Current Visit: Yes Status: Acute Acute blood loss anemia secondary to GI bleed. He required 5 units of PRBCs on 02/08/17. Patient is status post upper endoscopy with intervention on duodenal ulcer per GI. Continue IV PPI. Trend hemoglobin and transfuse if less than 7. No current signs of active bleeding. (5) Bacteremia Current Visit: Yes Status: Acute Group A strep bacteremia likely secondary to lower extremity ulcers. He is currently on Zosyn per ID recommendations. Blood cultures have been cleared. Polymicrobial wound cultures of unclear clinical significance. (6) Encephalopathy Current Visit: Yes Status: Acute Encephalopathy likely multifactorial and due to metabolic/toxic causes. Continue supportive measures and minimize sedation as able. CT head was unremarkable. Suspect JOVEL cirrhosis - ammonia level normal. (7) Failure to thrive in adult Current Visit: Yes Status: Acute The patient has been in poor health for some time at home, but he reportedly did not seek out medical care. He has a new cardiomyopathy that may be ischemic , I suspect he has underlying JOVEL cirrhosis, acute renal failure in the setting of likely underlying chronic kidney disease. Now he has an acute severe illness with acute respiratory failure with difficulties weaning from the mechanical ventilator, severe GI bleeding, and group A strep bacteremia. Overall poor prognosis. I discussed goals of care with the patient's daughter/ POA on 02/11/2017. I suspect the patient will fail to wean from the ventilator , and the decision regarding tracheostomy will need to be made sometime next week. The patient remains full code. Total direct critical care time: 35 minutes Subjective Principal diagnosis: GI bleed, Sepsis, acute systolic CHF. Interval history: No acute overnight events. Patient remains encephalopathic, but some improvement with following commands. Marginal status on spontaneous breathing trial this a.m. with low tidal volumes and respiratory muscle fatigue. Objective PUL Vital signs: Last Vital Signs Temp 98.0 F 02/13/17 08:04 Pulse 70 02/13/17 09:00 Resp 70 02/13/17 09:00 BP 117/84 02/13/17 09:00 Pulse Ox 18 02/13/17 09:00 General: Chronically ill appearing, intubated and sedated Eyes: Pupils equal round and reactive to light ENT: Endotracheal tube in place, external ears appear normal Neck: supple, no lymphadenopathy Lungs: Coarse bilateral breath sounds Cardiovascular: Irregular Gastrointestinal: normoactive bowel sounds, soft, non-tender, non-distended, large pannus Integumentary: Chronic venous stasis changes and ulcerations noted of bilateral lower extremities Extremities: no cyanosis, LE edema noted Musculoskeletal: no deformities Neuro: Sedated Ventilator Settings Ventilator Settings: Ventilator Settings, Last 8 Hours Ventilator Mode VC+ Ventilator Mode VC+ Ventilator Mode CPAP Ventilator Mode CPAP Ventilator Mode VC+ Ventilator Mode VC+ Ventilator Mode VC+ Ventilator Mode VC+ Ventilator Mode VC+ Ventilator Tidal Volume 500 Setting Ventilator Tidal Volume 500 Setting Ventilator Tidal Volume 500 Setting Ventilator Tidal Volume 500 Setting Ventilator Tidal Volume 500 Setting Ventilator Tidal Volume 500 Setting Ventilator Tidal Volume 500 Setting Ventilator Respiratory Rate 16 Setting Ventilator Respiratory Rate 16 Setting Ventilator Respiratory Rate 16 Setting Ventilator Respiratory Rate 16 Setting Ventilator Respiratory Rate 16 Setting Ventilator Respiratory Rate 16 Setting Ventilator Respiratory Rate 16 Setting Actual Respiratory Rate 18 Actual Respiratory Rate 24 Actual Respiratory Rate 24 Actual Respiratory Rate 27 Actual Respiratory Rate 16 Actual Respiratory Rate 16 Actual Respiratory Rate 16 Actual Respiratory Rate 16 Actual Respiratory Rate 16 Positive End Expiratory 5 Pressure Positive End Expiratory 5 Pressure Positive End Expiratory 5 Pressure Positive End Expiratory 5 Pressure Positive End Expiratory 5 Pressure Positive End Expiratory 5 Pressure Positive End Expiratory 5 Pressure Positive End Expiratory 5 Pressure Positive End Expiratory 5 Pressure Peak Inspiratory Airway 15 Pressure Peak Inspiratory Airway 26 Pressure Peak Inspiratory Airway 26 Pressure Peak Inspiratory Airway 26 Pressure Peak Inspiratory Airway 26 Pressure Peak Inspiratory Airway 26 Pressure Results - Laboratory Findings CBC and BMP: 02/13/17 03:00 02/13/17 03:00 ABG ABG pH 7.42 pH Units (7.32-7.45) 02/12/17 05:43 ABG pCO2 43 mmHg (35-45) 02/12/17 05:43 ABG pO2 56 mmHg (85-104) L 02/12/17 05:43 ABG O2 Saturation 89 % (95-98) L 02/12/17 05:43 PT/INR, D-dimer PT 13.9 Seconds (9.4-12.1) H 02/13/17 03:00 Abnormal lab findings: Abnormal lab results WBC 23.8 K/mcL (4.3-11.1) H 02/13/17 03:00 RBC 2.85 M/mcL (4.19-5.50) L 02/13/17 03:00 Hgb 8.0 g/dL (12.9-16.9) L 02/13/17 03:00 Hct 25.6 % (37.5-50.1) L 02/13/17 03:00 MCHC 31.3 g/dL (31.6-35.5) L 02/13/17 03:00 RDW 19.6 % (11.5-14.5) H 02/13/17 03:00 Plt Count 124 K/mcL (140-400) L 02/13/17 03:00 Immature Gran % 10.3 % (0-4) H 02/11/17 05:25 Metamyelocytes % 2.0 % (0) H 02/12/17 03:00 Myelocytes % 2.0 % (0) H 02/10/17 07:15 Promyelocytes % 2.0 % (0) H 02/09/17 16:16 Neutrophils # 19.0 K/mcL (1.6-8.9) H 02/13/17 03:00 Monocytes # 1.4 K/mcL (0.0-1.3) H 02/13/17 03:00 Eosinophils # 1.0 K/mcL (0.0-0.6) H 02/13/17 03:00 Nucleated RBCs/100 WBC 0.8 /100 WBC (0) H 02/13/17 03:00 Reactive Lymphocytes Present (Not Present) A 02/13/17 03:00 Platelet Estimate Slight Decrease (Normal) L 02/13/17 03:00 Large Platelets Present (Not Present) A 02/13/17 03:00 Polychromasia 1+ (Not Present) A 02/13/17 03:00 Hypochromasia Present (Not Present) A 02/10/17 03:10 Poikilocytosis 1+ (Not Present) A 02/11/17 05:25 Anisocytosis 1+ (Not Present) A 02/13/17 03:00 Microcytosis Present (Not Present) A 02/12/17 03:00 Macrocytosis Present (Not Present) A 02/12/17 03:00 Target Cells 1+ (Not Present) A 02/13/17 03:00 ESR 71 mm/hr (0-10) H 02/07/17 16:02 PT 13.9 Seconds (9.4-12.1) H 02/13/17 03:00 APTT 40.8 Seconds (26.0-36.0) H 02/08/17 00:45 ABG pO2 56 mmHg (85-104) L 02/12/17 05:43 ABG HCO3 27.9 mEQ/L (21-27) H 02/12/17 05:43 ABG Total CO2 29.2 mEq/L (20-26) H 02/12/17 05:43 ABG O2 Saturation 89 % (95-98) L 02/12/17 05:43 ABG Base Excess 3.1 mEq/L (-2.0 to 3.0) H 02/12/17 05:43 Sodium 149 mEq/L (136-145) H 02/13/17 03:00 Potassium 3.3 mEq/L (3.5-4.5) L 02/13/17 03:00 Chloride 113 mEq/L (98-109) H 02/13/17 03:00 BUN 103 mg/dL (8-26) H 02/13/17 03:00 Creatinine 1.94 mg/dL (0.72-1.25) H 02/13/17 03:00 Est GFR ( Amer) 41 (> 60) L 02/13/17 03:00 Est GFR (Non-Af Amer) 34 (> 60) L 02/13/17 03:00 BUN/Creatinine Ratio 53 (6-26) H 02/13/17 03:00 Glucose 182 mg/dL (70-99) H 02/13/17 03:00 POC Glucose 180 (58-89) H 02/13/17 05:11 Hemoglobin A1c 6.9 % (-5.6) H 02/06/17 06:18 Calculated Osmolality 345 (280-300) H 02/13/17 03:00 Calcium 8.0 mg/dL (8.6-10.8) L 02/13/17 03:00 Iron 54 mcg/dL (65-175) L 02/08/17 06:39 Transferrin 146 mg/dL (174-364) L 02/08/17 06:39 Ferritin 808 ng/ml (22-275) H 02/08/17 06:39 Total Bilirubin 3.3 mg/dL (0.2-1.2) H 02/13/17 03:00 Direct Bilirubin 1.3 mg/dL (0.0-0.5) H 02/07/17 04:35 AST 44 Units/L (5-34) H 02/13/17 03:00 Troponin I 0.24 ng/mL (0-0.03) H* 02/06/17 18:39 C-Reactive Protein 248 mg/L (Less than 5) H 02/07/17 16:02 B-Natriuretic Peptide 2958 pg/mL (0-100) H 02/05/17 23:05 Serum Total Protein 5.1 g/dL (6.0-8.3) L 02/13/17 03:00 Total Protein (PEP) 5.10 g/dL (6.00-8.30) L 02/08/17 06:39 Albumin 1.4 g/dL (3.5-5.0) L 02/13/17 03:00 Albumin (PEP) 2.16 g/dL (3.75-5.01) L 02/08/17 06:39 Globulin 3.7 g/dL (2.4-3.5) H 02/13/17 03:00 Albumin/Globulin Ratio 0.4 (1.1-2.2) L 02/13/17 03:00 Jcbbl-3-Rxrmiefsz 0.53 g/dL (0.19-0.46) H 02/08/17 06:39 HDL Cholesterol 16 mg/dL (40-59) L 02/06/17 06:18 Cholesterol/HDL Ratio 6.7 (0-4.9) H 02/06/17 06:18 Vitamin B12 1850 pg/mL (213-816) H 02/08/17 06:39 25-OH Vitamin D Total 15 ng/mL (30-80) L 02/08/17 06:39 Folate 6.4 ng/mL (7.0-31.4) L 02/08/17 06:39 Urine Clarity Cloudy (Clear) A 02/11/17 08:54 Urine Blood Moderate (Negative) H 02/11/17 08:54 Urine Bilirubin Small (Negative) H 02/11/17 08:54 Ur Leukocyte Esterase Trace (Negative) H 02/11/17 08:54 Ur Squamous Epith Cells Moderate per lpf (None-Few) H 02/11/17 08:54 Ur Culture Indicated? YES (NO) A 02/11/17 08:54 Microalb/Creat Ratio 65 (0-30) H 02/07/17 15:26 Protein/Creatinin Ratio 0.41 mg/mg (0-0.20) H 02/07/17 15:26 Urine Total Protein 65 mg/dL (1-14) H 02/07/17 15:26 Streptococcus sp PCR DETECTED (Not Detect) A 02/05/17 23:06 Group A Strep DNA DETECTED (Not Detect) A 02/05/17 23:06 - Microbiology Findings Microbiology Findings: Microbiology, Last 48 Hours 02/08/17 06:45 Blood Culture - Final Peripheral Venipuncture No growth. 02/08/17 06:39 Blood Culture - Final Peripheral Venipuncture No growth. 02/11/17 11:00 Blood Culture - Preliminary Central Venous Catheter No growth. 02/11/17 09:28 Blood Culture - Preliminary Peripheral Venipuncture No growth. 02/11/17 09:21 Blood Culture - Preliminary Peripheral Venipuncture No growth. 02/11/17 08:54 Urine Culture - Final Urine,Clean Catch No pathogens isolated. 02/07/17 04:35 Blood Culture - Final Peripheral Venipuncture No growth. - Clinical Findings Intake & Output: Intake & Output 02/12/17 02/13/17 02/13/17 23:59 07:59 15:59 Intake Total 436 / 436 570 / 570 Output Total 600 / 600 300 / 300 Balance -164 / -164 570 / 570 -300 / -300 Consult Discharge Plan - Plan Referrals: Yasmani Baker MD [Non-Partnered Physician] - (OFFICE WILL NOT MAKE A FOLLOW UP APPOINTMENT FOR THIS PATIENT UNITL WE HAVE A DISCHARGE ORDER)
--- NOTE | 2017-02-13 11:24 | Nephrology Progress Note ---
Date of Encounter: 02/13/17 Time of Encounter: 11:00 - Assessment and Plan (1) SAGE (acute kidney injury) Current Visit: Yes Status: Acute SCr continues to improve at 1.94, GFR 34. baseline SCr as of earlier this month appears to be 1.02, GFR >60 UOP remains good at 1075cc in 24hrs No acute indication for [employer] at this time Continue to avoid nephrotoxins if possible Lytes WNL except slightly low potassium and calcium, can replete gently (2) Acute respiratory failure with hypoxia and hypercapnia Current Visit: Yes Status: Acute Vent settings per primary team (3) Anemia Current Visit: Yes Status: Acute Hgb low and lowly drifting down at 8.1, will monitor Qualifiers: Anemia type: iron deficiency Iron deficiency anemia type: chronic blood loss Qualified Code(s): D50.0 - Iron deficiency anemia secondary to blood loss (chronic) (4) Severe sepsis Current Visit: Yes Status: Acute Antibiotics regimen per primary team. Elevated WBCs noted (5) Hypernatremia Current Visit: Yes Status: Acute Sodium rising at 149, will advise changing iv meds from NS solutions to D5 also needs free water with water deficit around 2liters given persistent diarrhea (6) Hypoalbuminemia Current Visit: Yes Status: Acute Albumin of 1.4 noted likely from malnutrition but contributing to third spacing Subjective Principal diagnosis: GI bleed, Sepsis, acute systolic CHF. Interval history: Pt seen and examined still intubated but more awake and doing well with cPAP trial today Objective - Vital Signs Vital signs: Vital Signs Temp Pulse Resp BP Pulse Ox 02/13/17 10:00 68 22 118/50 96 02/13/17 09:20 16 117/34 97 02/13/17 09:00 70 18 117/84 95 02/13/17 08:04 98.0 F 02/13/17 08:00 91 24 128/52 96 02/13/17 07:58 19 128/52 95 02/13/17 07:35 90 02/13/17 07:00 86 24 130/59 94 02/13/17 06:09 28 123/76 94 02/13/17 05:51 88 20 114/67 96 02/13/17 05:00 63 16 100/39 94 02/13/17 04:18 16 100/39 94 02/13/17 04:00 76 17 106/38 95 02/13/17 03:00 98.1 F 78 17 111/36 95 02/13/17 02:56 67 16 108/44 95 02/13/17 02:14 16 108/44 95 02/13/17 02:00 67 18 114/32 96 02/13/17 01:00 63 16 101/41 96 02/13/17 00:02 16 101/41 96 02/13/17 00:00 97.6 F 62 16 102/37 98 02/12/17 23:00 61 16 96/46 96 02/12/17 22:44 61 16 96/46 96 02/12/17 22:14 16 96/46 96 02/12/17 22:00 61 16 99/40 96 02/12/17 21:11 72 17 92/45 95 02/12/17 20:38 19 102/36 91 02/12/17 20:04 72 17 92/45 95 02/12/17 19:01 98.4 F 71 18 123/67 95 02/12/17 18:10 71 18 123/67 95 02/12/17 18:00 71 18 123/67 95 02/12/17 17:25 17 108/41 95 02/12/17 17:00 68 17 108/41 96 02/12/17 16:00 97.9 F 62 19 99/50 97 02/12/17 15:53 97.9 F 02/12/17 15:31 16 105/42 96 02/12/17 15:00 63 16 104/39 96 02/12/17 14:00 58 17 101/48 94 02/12/17 13:14 17 106/45 94 02/12/17 13:00 64 16 106/45 94 02/12/17 12:00 98.2 F 66 16 100/40 95 Intake and Output 02/12/17 02/13/17 02/13/17 23:59 07:59 15:59 Intake Total 436 / 436 570 / 570 Output Total 600 / 600 300 / 300 Balance -164 / -164 570 / 570 -300 / -300 Intake: IV Fluids 200 / 200 200 / 200 Diprivan 1,000 mg In 100 100 / 100 100 / 100 ml @ 5 MCG/KG/MIN 4.068 mls/hr IVC .Q24H [facility] Rx#: [id number] Zosyn 3.375 GM In 100 / 100 100 / 100 Dextrose 5% (Minibag+) 100 ML 100 ML @ 25 mls/hr IVPB Q8HR [facility] Rx#: [id number] Tube Feeding 236 / 236 370 / 370 Free Water 0 / 0 Free Water Intake Amount 0 / 0 Output: Rectal Tube 100 / 100 Catheter 500 / 500 300 / 300 Other: Blood Glucose* 164 - General Appearance General appearance: Present: chronically ill, intubated EENT: Present: ATNC Neck: Present: no JVD, supple Additional Comments: good areation ant bilat Cardiology: Present: edema (LE edema bilat), normal S1, normal S2 Gastrointestinal: Present: no tenderness, no guarding, obese Integumentary: Present: warm and dry Musculoskeletal: Present: no deformities Psychiatric: Present: mood/affect appropriate (awake and responsive) - Lab 02/14/17 04:13 02/14/17 04:13 Most recent lab results ABG pH 7.42 pH Units (7.32-7.45) 02/12/17 05:43 ABG pCO2 43 mmHg (35-45) 02/12/17 05:43 ABG pO2 56 mmHg (85-104) L 02/12/17 05:43 ABG HCO3 27.9 mEQ/L (21-27) H 02/12/17 05:43 ABG O2 Saturation 89 % (95-98) L 02/12/17 05:43 Calcium 8.0 mg/dL (8.6-10.8) L 02/13/17 03:00 Phosphorus 3.5 mg/dL (2.3-4.7) 02/12/17 03:00 Magnesium 2.4 mg/dL (1.6-2.6) 02/12/17 03:00 Urine Creatinine 158 mg/dL 02/07/17 15:26 Urine Total Protein 65 mg/dL (1-14) H 02/07/17 15:26 Consult Discharge Plan - Plan Referrals: Yasmani Baker MD [Non-Partnered Physician] - (OFFICE WILL NOT MAKE A FOLLOW UP APPOINTMENT FOR THIS PATIENT UNITL WE HAVE A DISCHARGE ORDER)
[2017-02-13] MEDS: FentaNYL (PF) 1,000 MCG in 0.9 % Sodium Chloride 80 ML IVC SCH (17:35)
[2017-02-13 22:47] LABS: Magnesium 2.4 mg/dL (1.6-2.6); Potassium 3.2 mEq/L (3.5-4.5)
[2017-02-13] MEDS: Potassium Chloride 40 MEQ/200 ML BAG IVPB PRN (23:20)
[2017-02-14] MEDS: Piperacillin/Tazobactam 3.375 GM in D5% in Water (Mini-Bag+) 100 ML IVPB SCH ×4 (00:30→23:26)
[2017-02-14] MEDS: Insulin LISPRO 300 UNITS/3 ML VIAL SQ SCH ×4 (01:13→18:26)
[2017-02-14 04:29] LABS: Basophils # 0.1 K/mcL (0.0-0.2); Basophils % 0.3 %; Eosinophils # 0.5 K/mcL (0.0-0.6); Hematocrit 26.6 % (37.5-50.1); Hemoglobin 8.1 g/dL (12.9-16.9); Immature Granulocytes % 4.4 % (0-4); Lymphocytes # 1.4 K/mcL (0.6-4.6); Lymphocytes % 5.9 %; Mean Corpuscular HGB Conc 30.5 g/dL (31.6-35.5); Mean Corpuscular Hemoglobin 27.9 pg (28.0-33.3); Mean Corpuscular Volume 91.7 fL (83.0-100.0); Monocytes # 1.1 K/mcL (0.0-1.3); Monocytes % 4.6 %; Neutrophils # 19.7 K/mcL (1.6-8.9); Nucleated Red Blood Cells 0.3 /100 WBC (0); Platelet Count 139 K/mcL (140-400); Red Cell Distribution Width 20.2 % (11.5-14.5); Segmented Neutrophils % 82.8 %
[2017-02-14 04:38] LABS: INR 1.3; Prothrombin Time 13.9 Seconds (9.4-12.1)
[2017-02-14 04:39] LABS: Albumin/Globulin Ratio 0.3 (1.1-2.2); Calcium 8.2 mg/dL (8.6-10.8); Globulin 4.3 g/dL (2.4-3.5); Potassium 3.5 mEq/L (3.5-4.5); Total Protein 5.6 g/dL (6.0-8.3)
[2017-02-14 04:44] LABS: Albumin 1.3 g/dL (3.5-5.0)
[2017-02-14 04:49] LABS: ABG Base Excess 5.2 mEq/L (-2.0 to 3.0); ABG HCO3 30.9 mEQ/L (21-27); ABG Oxygen Saturation 82 % (95-98); ABG PCO2 51 mmHg (35-45); ABG PH 7.39 pH Units (7.32-7.45); ABG TCO2 32.5 mEq/L (20-26)
[2017-02-14 04:54] LABS: ABG PO2 47 mmHg (85-104); Blood Gas FiO2 30 %
[2017-02-14] MEDS: *HR* Metoprolol 5 MG/5 ML VIAL IVP SCH ×4 (05:12→23:26)
[2017-02-14] MEDS: Potassium Chloride 40 MEQ/200 ML BAG IVPB PRN (05:12)
[2017-02-14] MEDS: Pantoprazole 40 MG VIAL IVP SCH ×2 (05:12→09:49)
[2017-02-14] MEDS: *HR* Heparin 5,000 UNIT/ML VIAL SQ SCH ×2 (05:26→18:31)
--- NOTE | 2017-02-14 07:12 | Pulmonology Progress Note ---
<Mariano Hamilton - Last Filed: 02/14/17 08:35> Date of Encounter: 02/14/17 Time of Encounter: 07:09 Assessment and Plan (1) Shock Current Visit: Yes Status: Acute Resolved. I think this was likely secondary to hypovolemia from blood loss. He continues to be hemodynamically stable. Given the quick resolution with blood products I think this is from his blood loss. (2) Sepsis Current Visit: Yes Status: Acute Patient still has a high white count. This is stable at 23.8. Afebrile. 2 out of 2 blood cultures positive for group A streptococcus on 02/05/2017. Repeat blood cultures from February 07 and February 08 show no growth to date. Reviewed blood cultures from February 11 as well as from central venous catheter from a 26 showed no growth to date. Wound cultures have grown group A strep as well as providentia resistant to ceftazadime and indeterminate to Unasyn. Continue Zosyn. Duration of antibiotics will depend on clinical course. ID following. Appreciate their recommendations. (3) SAGE (acute kidney injury) Current Visit: Yes Status: Acute Creatinine is trending down. Urine output is good I Think the etiology was secondary to shock and prerenal from volume loss. Appears to be resolving now. (4) Anemia Current Visit: Yes Status: Acute Blood loss anemia. stable Qualifiers: Anemia type: iron deficiency Iron deficiency anemia type: chronic blood loss Qualified Code(s): D50.0 - Iron deficiency anemia secondary to blood loss (chronic) (5) Cardiomyopathy Current Visit: Yes Status: Acute EF of 20-25%. Should consider adding YEHUDA inhibitor when patient is more stable and SAGE has resolved. He will need an ischemic workup as well once are stable. Qualifiers: Cardiomyopathy type: unspecified Qualified Code(s): I42.9 - Cardiomyopathy , unspecified (6) Pacemaker Current Visit: Yes Status: Acute (7) Acute systolic heart failure Current Visit: Yes Status: Acute As stated above. (8) Acute respiratory failure with hypoxia and hypercapnia Current Visit: Yes Status: Acute Secondary to aspiration and volume overload. Currently meeting oxygenation and ventilation goals. Currently on SPT and tolerating it well. Following commands. Will discuss with Dr. leblanc and plan for extubation today. (9) Duodenal ulcer Current Visit: Yes Status: Acute Continue Protonix daily and Carafate. (10) GI bleeding Current Visit: Yes Status: Acute As stated above. 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 (12) Leukocytosis Current Visit: Yes Status: Acute trending up (13) Thrombocytopenia Current Visit: Yes Status: Acute Stable /trending up (14) Leukocytosis Current Visit: Yes Status: Acute Persistant leukocytosis. Likley from infection/ stress. However if persisting may consider a hematology referral. (15) DVT prophylaxis Current Visit: Yes Status: Acute SQ heparin Subjective Principal diagnosis: GI bleed, Sepsis, acute systolic CHF. Interval history: No major events overnight. Patient continues to be hemodynamically stable. Patient is currently on Spontaneous breathing trial and doing well. He is following commands. Appears comfortable. Objective PUL Vital signs: Last Vital Signs Temp 97.6 F 02/14/17 04:43 Pulse 63 02/14/17 05:56 Resp 15 02/14/17 06:02 BP 103/66 02/14/17 06:02 Pulse Ox 100 02/14/17 06:02 I have reviewed all vital signs for the past 24 hours. Gen.: This is a well-developed well-nourished 87-year-old male who is alert and following commands. Currently he is on the ventilator and tolerating it well. HEENT: Head is normocephalic and atraumatic. Pupils equally round react light and accommodation. Anicteric sclera, ET and NG tubes are in place, trachea midline. Heart: Regular rate and rhythm without murmurs rubs or gallops. No JVD. Lungs: Normal rise and expanse of the chest wall bilaterally. Clear to auscultation bilaterally. Abdomen: Obese, nondistended, bowel sounds are positive in all quadrants. Patient nods head yes when asked if pain is present. He does this diffusely throughout all quadrants. No organomegaly. No bruits. Musculoskeletal: Grossly normal for age no gross deformities noted. Extremities: No clubbing, cyanosis or edema. Integument: No rashes or lesions. Lower extremities are well dressed and clean. Ventilator Settings Ventilator Settings: Ventilator Settings, Last 8 Hours Ventilator Mode CPAP Ventilator Mode VC+ Ventilator Mode VC+ Ventilator Mode VC+ Ventilator Mode VC+ Ventilator Mode VC+ Ventilator Mode VC+ Ventilator Mode VC+ Ventilator Mode VC+ Ventilator Mode VC+ Ventilator Mode VC+ Ventilator Mode VC+ Ventilator Tidal Volume 500 Setting Ventilator Tidal Volume 500 Setting Ventilator Tidal Volume 500 Setting Ventilator Tidal Volume 500 Setting Ventilator Tidal Volume 500 Setting Ventilator Tidal Volume 500 Setting Ventilator Tidal Volume 500 Setting Ventilator Tidal Volume 500 Setting Ventilator Tidal Volume 500 Setting Ventilator Tidal Volume 500 Setting Ventilator Tidal Volume 500 Setting Ventilator Respiratory Rate 16 Setting Ventilator Respiratory Rate 16 Setting Ventilator Respiratory Rate 16 Setting Ventilator Respiratory Rate 16 Setting Ventilator Respiratory Rate 16 Setting Ventilator Respiratory Rate 16 Setting Ventilator Respiratory Rate 16 Setting Ventilator Respiratory Rate 16 Setting Ventilator Respiratory Rate 16 Setting Ventilator Respiratory Rate 16 Setting Ventilator Respiratory Rate 16 Setting Actual Respiratory Rate 15 Actual Respiratory Rate 22 Actual Respiratory Rate 17 Actual Respiratory Rate 17 Actual Respiratory Rate 16 Actual Respiratory Rate 17 Actual Respiratory Rate 17 Actual Respiratory Rate 16 Actual Respiratory Rate 16 Actual Respiratory Rate 16 Actual Respiratory Rate 18 Positive End Expiratory 5 Pressure Positive End Expiratory 5 Pressure Positive End Expiratory 5 Pressure Positive End Expiratory 5 Pressure Positive End Expiratory 5 Pressure Positive End Expiratory 5 Pressure Positive End Expiratory 5 Pressure Positive End Expiratory 5 Pressure Positive End Expiratory 5 Pressure Positive End Expiratory 5 Pressure Positive End Expiratory 5 Pressure Positive End Expiratory 5 Pressure Peak Inspiratory Airway 15 Pressure Peak Inspiratory Airway 18 Pressure Peak Inspiratory Airway 21 Pressure Peak Inspiratory Airway 22 Pressure Peak Inspiratory Airway 22 Pressure Peak Inspiratory Airway 21 Pressure Peak Inspiratory Airway 20 Pressure Peak Inspiratory Airway 20 Pressure Peak Inspiratory Airway 20 Pressure Peak Inspiratory Airway 20 Pressure Peak Inspiratory Airway 22 Pressure Currently on spontaneous breathing trial. Results - Laboratory Findings CBC and BMP: 02/14/17 04:13 02/14/17 04:13 ABG ABG pH 7.39 pH Units (7.32-7.45) 02/14/17 04:30 ABG pCO2 51 mmHg (35-45) H 02/14/17 04:30 ABG pO2 47 mmHg (85-104) L* 02/14/17 04:30 ABG O2 Saturation 82 % (95-98) L 02/14/17 04:30 PT/INR, D-dimer PT 13.9 Seconds (9.4-12.1) H 02/14/17 04:13 Abnormal lab findings: Abnormal lab results WBC 23.8 K/mcL (4.3-11.1) H 02/14/17 04:13 RBC 2.90 M/mcL (4.19-5.50) L 02/14/17 04:13 Hgb 8.1 g/dL (12.9-16.9) L 02/14/17 04:13 Hct 26.6 % (37.5-50.1) L 02/14/17 04:13 MCH 27.9 pg (28.0-33.3) L 02/14/17 04:13 MCHC 30.5 g/dL (31.6-35.5) L 02/14/17 04:13 RDW 20.2 % (11.5-14.5) H 02/14/17 04:13 Plt Count 139 K/mcL (140-400) L 02/14/17 04:13 Immature Gran % 4.4 % (0-4) H 02/14/17 04:13 Metamyelocytes % 2.0 % (0) H 02/12/17 03:00 Myelocytes % 2.0 % (0) H 02/10/17 07:15 Promyelocytes % 2.0 % (0) H 02/09/17 16:16 Neutrophils # 19.7 K/mcL (1.6-8.9) H 02/14/17 04:13 Nucleated RBCs/100 WBC 0.3 /100 WBC (0) H 02/14/17 04:13 Reactive Lymphocytes Present (Not Present) A 02/13/17 03:00 Platelet Estimate Slight Decrease (Normal) L 02/13/17 03:00 Large Platelets Present (Not Present) A 02/13/17 03:00 Polychromasia 1+ (Not Present) A 02/13/17 03:00 Hypochromasia Present (Not Present) A 02/10/17 03:10 Poikilocytosis 1+ (Not Present) A 02/11/17 05:25 Anisocytosis 1+ (Not Present) A 02/13/17 03:00 Microcytosis Present (Not Present) A 02/12/17 03:00 Macrocytosis Present (Not Present) A 02/12/17 03:00 Target Cells 1+ (Not Present) A 02/13/17 03:00 ESR 71 mm/hr (0-10) H 02/07/17 16:02 PT 13.9 Seconds (9.4-12.1) H 02/14/17 04:13 APTT 40.8 Seconds (26.0-36.0) H 02/08/17 00:45 ABG pCO2 51 mmHg (35-45) H 02/14/17 04:30 ABG pO2 47 mmHg (85-104) L* 02/14/17 04:30 ABG HCO3 30.9 mEQ/L (21-27) H 02/14/17 04:30 ABG Total CO2 32.5 mEq/L (20-26) H 02/14/17 04:30 ABG O2 Saturation 82 % (95-98) L 02/14/17 04:30 ABG Base Excess 5.2 mEq/L (-2.0 to 3.0) H 02/14/17 04:30 Sodium 147 mEq/L (136-145) H 02/14/17 04:13 Chloride 112 mEq/L (98-109) H 02/14/17 04:13 BUN 93 mg/dL (8-26) H 02/14/17 04:13 Creatinine 1.69 mg/dL (0.72-1.25) H 02/14/17 04:13 Est GFR ( Amer) 48 (> 60) L 02/14/17 04:13 Est GFR (Non-Af Amer) 40 (> 60) L 02/14/17 04:13 BUN/Creatinine Ratio 55 (6-26) H 02/14/17 04:13 Glucose 171 mg/dL (70-99) H 02/14/17 04:13 POC Glucose 150 (58-89) H 02/14/17 05:33 Hemoglobin A1c 6.9 % (-5.6) H 02/06/17 06:18 Calculated Osmolality 337 (280-300) H 02/14/17 04:13 Calcium 8.2 mg/dL (8.6-10.8) L 02/14/17 04:13 Iron 54 mcg/dL (65-175) L 02/08/17 06:39 Transferrin 146 mg/dL (174-364) L 02/08/17 06:39 Ferritin 808 ng/ml (22-275) H 02/08/17 06:39 Total Bilirubin 3.0 mg/dL (0.2-1.2) H 02/14/17 04:13 Direct Bilirubin 1.3 mg/dL (0.0-0.5) H 02/07/17 04:35 AST 37 Units/L (5-34) H 02/14/17 04:13 Troponin I 0.24 ng/mL (0-0.03) H* 02/06/17 18:39 C-Reactive Protein 248 mg/L (Less than 5) H 02/07/17 16:02 B-Natriuretic Peptide 2958 pg/mL (0-100) H 02/05/17 23:05 Serum Total Protein 5.6 g/dL (6.0-8.3) L 02/14/17 04:13 Total Protein (PEP) 5.10 g/dL (6.00-8.30) L 02/08/17 06:39 Albumin 1.3 g/dL (3.5-5.0) L 02/14/17 04:13 Albumin (PEP) 2.16 g/dL (3.75-5.01) L 02/08/17 06:39 Globulin 4.3 g/dL (2.4-3.5) H 02/14/17 04:13 Albumin/Globulin Ratio 0.3 (1.1-2.2) L 02/14/17 04:13 Ingca-4-[id number] 0.53 g/dL (0.19-0.46) H 02/08/17 06:39 HDL Cholesterol 16 mg/dL (40-59) L 02/06/17 06:18 Cholesterol/HDL Ratio 6.7 (0-4.9) H 02/06/17 06:18 Vitamin B12 1850 pg/mL (213-816) H 02/08/17 06:39 25-OH Vitamin D Total 15 ng/mL (30-80) L 02/08/17 06:39 Folate 6.4 ng/mL (7.0-31.4) L 02/08/17 06:39 Urine Clarity Cloudy (Clear) A 02/11/17 08:54 Urine Blood Moderate (Negative) H 02/11/17 08:54 Urine Bilirubin Small (Negative) H 02/11/17 08:54 Ur Leukocyte Esterase Trace (Negative) H 02/11/17 08:54 Ur Squamous Epith Cells Moderate per lpf (None-Few) H 02/11/17 08:54 Ur Culture Indicated? YES (NO) A 02/11/17 08:54 Microalb/Creat Ratio 65 (0-30) H 02/07/17 15:26 Protein/Creatinin Ratio 0.41 mg/mg (0-0.20) H 02/07/17 15:26 Urine Total Protein 65 mg/dL (1-14) H 02/07/17 15:26 Streptococcus sp PCR DETECTED (Not Detect) A 02/05/17 23:06 Group A Strep DNA DETECTED (Not Detect) A 02/05/17 23:06 - Microbiology Findings Microbiology Findings: Microbiology, Last 48 Hours 02/08/17 06:45 Blood Culture - Final Peripheral Venipuncture No growth. 02/08/17 06:39 Blood Culture - Final Peripheral Venipuncture No growth. 02/11/17 11:00 Blood Culture - Preliminary Central Venous Catheter No growth. 02/11/17 09:28 Blood Culture - Preliminary Peripheral Venipuncture No growth. 02/11/17 09:21 Blood Culture - Preliminary Peripheral Venipuncture No growth. 02/11/17 08:54 Urine Culture - Final Urine,Clean Catch No pathogens isolated. 02/07/17 04:35 Blood Culture - Final Peripheral Venipuncture No growth. - Clinical Findings Intake & Output: Intake & Output 02/13/17 02/13/17 02/14/17 15:59 23:59 07:59 Intake Total 889 / 889 600 / 600 1476.4 / 1476.4 Output Total 1000 / 1000 350 / 350 575 / 575 Balance -111 / -111 250 / 250 901.4 / 901.4 Weight 128.9 kg Consult Discharge Plan - Plan Referrals: Baker,Yasmani Martin MD [Non-Partnered Physician] - (OFFICE WILL NOT MAKE A FOLLOW UP APPOINTMENT FOR THIS PATIENT UNITL WE HAVE A DISCHARGE ORDER) <Mynor Stover - Last Filed: 02/14/17 10:10> Date of Encounter: 02/14/17 Objective PUL Vital signs: Last Vital Signs Temp 98.2 F 02/14/17 08:00 Pulse 62 02/14/17 10:00 Resp 16 02/14/17 10:00 BP 110/38 02/14/17 10:00 Pulse Ox 99 02/14/17 10:00 Ventilator Settings Ventilator Settings: Ventilator Settings, Last 8 Hours Ventilator Mode CPAP Ventilator Mode CPAP Ventilator Mode CPAP Ventilator Mode CPAP Ventilator Mode VC+ Ventilator Mode VC+ Ventilator Mode VC+ Ventilator Mode VC+ Ventilator Mode VC+ Ventilator Mode VC+ Ventilator Mode VC+ Ventilator Tidal Volume 500 Setting Ventilator Tidal Volume 500 Setting Ventilator Tidal Volume 500 Setting Ventilator Tidal Volume 500 Setting Ventilator Tidal Volume 500 Setting Ventilator Tidal Volume 500 Setting Ventilator Tidal Volume 500 Setting Ventilator Tidal Volume 500 Setting Ventilator Tidal Volume 500 Setting Ventilator Tidal Volume 500 Setting Ventilator Respiratory Rate 16 Setting Ventilator Respiratory Rate 16 Setting Ventilator Respiratory Rate 16 Setting Ventilator Respiratory Rate 16 Setting Ventilator Respiratory Rate 16 Setting Ventilator Respiratory Rate 16 Setting Ventilator Respiratory Rate 16 Setting Actual Respiratory Rate 24 Actual Respiratory Rate 23 Actual Respiratory Rate 24 Actual Respiratory Rate 15 Actual Respiratory Rate 22 Actual Respiratory Rate 17 Actual Respiratory Rate 17 Actual Respiratory Rate 16 Actual Respiratory Rate 17 Actual Respiratory Rate 17 Positive End Expiratory 5 Pressure Positive End Expiratory 5 Pressure Positive End Expiratory 5 Pressure Positive End Expiratory 5 Pressure Positive End Expiratory 5 Pressure Positive End Expiratory 5 Pressure Positive End Expiratory 5 Pressure Positive End Expiratory 5 Pressure Positive End Expiratory 5 Pressure Positive End Expiratory 5 Pressure Positive End Expiratory 5 Pressure Peak Inspiratory Airway 16 Pressure Peak Inspiratory Airway 15 Pressure Peak Inspiratory Airway 16 Pressure Peak Inspiratory Airway 15 Pressure Peak Inspiratory Airway 18 Pressure Peak Inspiratory Airway 21 Pressure Peak Inspiratory Airway 22 Pressure Peak Inspiratory Airway 22 Pressure Peak Inspiratory Airway 21 Pressure Peak Inspiratory Airway 20 Pressure Results - Laboratory Findings CBC and BMP: 02/14/17 04:13 02/14/17 04:13 ABG ABG pH 7.39 pH Units (7.32-7.45) 02/14/17 04:30 ABG pCO2 51 mmHg (35-45) H 02/14/17 04:30 ABG pO2 47 mmHg (85-104) L* 02/14/17 04:30 ABG O2 Saturation 82 % (95-98) L 02/14/17 04:30 PT/INR, D-dimer PT 13.9 Seconds (9.4-12.1) H 02/14/17 04:13 Abnormal lab findings: Abnormal lab results WBC 23.8 K/mcL (4.3-11.1) H 02/14/17 04:13 RBC 2.90 M/mcL (4.19-5.50) L 02/14/17 04:13 Hgb 8.1 g/dL (12.9-16.9) L 02/14/17 04:13 Hct 26.6 % (37.5-50.1) L 02/14/17 04:13 MCH 27.9 pg (28.0-33.3) L 02/14/17 04:13 MCHC 30.5 g/dL (31.6-35.5) L 02/14/17 04:13 RDW 20.2 % (11.5-14.5) H 02/14/17 04:13 Plt Count 139 K/mcL (140-400) L 02/14/17 04:13 Immature Gran % 4.4 % (0-4) H 02/14/17 04:13 Metamyelocytes % 2.0 % (0) H 02/12/17 03:00 Myelocytes % 2.0 % (0) H 02/10/17 07:15 Promyelocytes % 2.0 % (0) H 02/09/17 16:16 Neutrophils # 19.7 K/mcL (1.6-8.9) H 02/14/17 04:13 Nucleated RBCs/100 WBC 0.3 /100 WBC (0) H 02/14/17 04:13 Reactive Lymphocytes Present (Not Present) A 02/13/17 03:00 Platelet Estimate Slight Decrease (Normal) L 02/13/17 03:00 Large Platelets Present (Not Present) A 02/13/17 03:00 Polychromasia 1+ (Not Present) A 02/13/17 03:00 Hypochromasia Present (Not Present) A 02/10/17 03:10 Poikilocytosis 1+ (Not Present) A 02/11/17 05:25 Anisocytosis 1+ (Not Present) A 02/13/17 03:00 Microcytosis Present (Not Present) A 02/12/17 03:00 Macrocytosis Present (Not Present) A 02/12/17 03:00 Target Cells 1+ (Not Present) A 02/13/17 03:00 ESR 71 mm/hr (0-10) H 02/07/17 16:02 PT 13.9 Seconds (9.4-12.1) H 02/14/17 04:13 APTT 40.8 Seconds (26.0-36.0) H 02/08/17 00:45 ABG pCO2 51 mmHg (35-45) H 02/14/17 04:30 ABG pO2 47 mmHg (85-104) L* 02/14/17 04:30 ABG HCO3 30.9 mEQ/L (21-27) H 02/14/17 04:30 ABG Total CO2 32.5 mEq/L (20-26) H 02/14/17 04:30 ABG O2 Saturation 82 % (95-98) L 02/14/17 04:30 ABG Base Excess 5.2 mEq/L (-2.0 to 3.0) H 02/14/17 04:30 Sodium 147 mEq/L (136-145) H 02/14/17 04:13 Chloride 112 mEq/L (98-109) H 02/14/17 04:13 BUN 93 mg/dL (8-26) H 02/14/17 04:13 Creatinine 1.69 mg/dL (0.72-1.25) H 02/14/17 04:13 Est GFR ( Amer) 48 (> 60) L 02/14/17 04:13 Est GFR (Non-Af Amer) 40 (> 60) L 02/14/17 04:13 BUN/Creatinine Ratio 55 (6-26) H 02/14/17 04:13 Glucose 171 mg/dL (70-99) H 02/14/17 04:13 POC Glucose 150 (58-89) H 02/14/17 05:33 Hemoglobin A1c 6.9 % (-5.6) H 02/06/17 06:18 Calculated Osmolality 337 (280-300) H 02/14/17 04:13 Calcium 8.2 mg/dL (8.6-10.8) L 02/14/17 04:13 Iron 54 mcg/dL (65-175) L 02/08/17 06:39 Transferrin 146 mg/dL (174-364) L 02/08/17 06:39 Ferritin 808 ng/ml (22-275) H 02/08/17 06:39 Total Bilirubin 3.0 mg/dL (0.2-1.2) H 02/14/17 04:13 Direct Bilirubin 1.3 mg/dL (0.0-0.5) H 02/07/17 04:35 AST 37 Units/L (5-34) H 02/14/17 04:13 Troponin I 0.24 ng/mL (0-0.03) H* 02/06/17 18:39 C-Reactive Protein 248 mg/L (Less than 5) H 02/07/17 16:02 B-Natriuretic Peptide 2958 pg/mL (0-100) H 02/05/17 23:05 Serum Total Protein 5.6 g/dL (6.0-8.3) L 02/14/17 04:13 Total Protein (PEP) 5.10 g/dL (6.00-8.30) L 02/08/17 06:39 Albumin 1.3 g/dL (3.5-5.0) L 02/14/17 04:13 Albumin (PEP) 2.16 g/dL (3.75-5.01) L 02/08/17 06:39 Globulin 4.3 g/dL (2.4-3.5) H 02/14/17 04:13 Albumin/Globulin Ratio 0.3 (1.1-2.2) L 02/14/17 04:13 Viwcc-9-[id number] 0.53 g/dL (0.19-0.46) H 02/08/17 06:39 HDL Cholesterol 16 mg/dL (40-59) L 02/06/17 06:18 Cholesterol/HDL Ratio 6.7 (0-4.9) H 02/06/17 06:18 Vitamin B12 1850 pg/mL (213-816) H 02/08/17 06:39 25-OH Vitamin D Total 15 ng/mL (30-80) L 02/08/17 06:39 Folate 6.4 ng/mL (7.0-31.4) L 02/08/17 06:39 Urine Clarity Cloudy (Clear) A 02/11/17 08:54 Urine Blood Moderate (Negative) H 02/11/17 08:54 Urine Bilirubin Small (Negative) H 02/11/17 08:54 Ur Leukocyte Esterase Trace (Negative) H 02/11/17 08:54 Ur Squamous Epith Cells Moderate per lpf (None-Few) H 02/11/17 08:54 Ur Culture Indicated? YES (NO) A 02/11/17 08:54 Microalb/Creat Ratio 65 (0-30) H 02/07/17 15:26 Protein/Creatinin Ratio 0.41 mg/mg (0-0.20) H 02/07/17 15:26 Urine Total Protein 65 mg/dL (1-14) H 02/07/17 15:26 Streptococcus sp PCR DETECTED (Not Detect) A 02/05/17 23:06 Group A Strep DNA DETECTED (Not Detect) A 02/05/17 23:06 - Microbiology Findings Microbiology Findings: Microbiology, Last 48 Hours 02/08/17 06:45 Blood Culture - Final Peripheral Venipuncture No growth. 02/08/17 06:39 Blood Culture - Final Peripheral Venipuncture No growth. 02/11/17 11:00 Blood Culture - Preliminary Central Venous Catheter No growth. 02/11/17 09:28 Blood Culture - Preliminary Peripheral Venipuncture No growth. 02/11/17 09:21 Blood Culture - Preliminary Peripheral Venipuncture No growth. 02/11/17 08:54 Urine Culture - Final Urine,Clean Catch No pathogens isolated. 02/07/17 04:35 Blood Culture - Final Peripheral Venipuncture No growth. - Clinical Findings Intake & Output: Intake & Output 02/13/17 02/14/17 02/14/17 23:59 07:59 15:59 Intake Total 600 / 600 1476.4 / 1476.4 15.6 / 15.6 Output Total 350 / 350 575 / 575 300 / 300 Balance 250 / 250 901.4 / 901.4 -284.4 / -284.4 Weight 128.9 kg - Attending Attestation I examined this patient and my medical decision-making was reviewed with the [employer]OVER/PA/Advanced Practice Nurse/Resident Physician. I agree with the documented findings, disposition and treatment plan as described except to the extent set forth below. Patient seen and examined. Labs, radiology, chart personally reviewed. Agree with resident's history and physical, assessment, plan with following comments: [employer]: Patient follows commands, Pulmonary: Acceptable oxygenation and ventilation. Patient extubated successfully Cardiovascular: stable, with monitoring ICU for next 24 hours due to his multiple comorbidities GI: Nutrition per dietary and GI prophylaxis per routine Heme: DVT prophylaxis per routine ID: Continue antibiotics and plan to de-escalation Renal; urine out put and renal funtion reviewed Endorcine: blood glucose is monitored Lines: all lines checked and no evidence of infections Skin: skin care to prevent pressure ulcers per nursing routine care
[2017-02-14] MEDS: Chlorhexidine Rinse 15 ML MOUTHWASH MM SCH ×2 (08:25→19:21)
[2017-02-14] MEDS: Aspirin 81 MG TAB.CHEW PO SCH (08:26)
[2017-02-14] MEDS: Lactobacillus 1 EACH CAP.SPRINK PO SCH (08:26)
[2017-02-14] MEDS ORDERED: Chloraseptic Spray 177 ML BOTTLE MM PRN (08:58)
[2017-02-14] MEDS ORDERED: *HR* HYDROmorphone (PF) 1 MG/ML SYRINGE IVP PRN (16:48)
--- NOTE | 2017-02-14 19:00 | Nephrology Progress Note ---
Date of Encounter: 02/14/17 Time of Encounter: 14:00 - Assessment and Plan (1) SAGE (acute kidney injury) Current Visit: Yes Status: Acute SCr continues to improve at 1.69, GFR 40. baseline SCr as of earlier this month appears to be 1.02, GFR >60 UOP remains good No acute indication for DEVOPS ARCHITECT at this time Continue to avoid nephrotoxins if possible Lytes WNL (2) Acute respiratory failure with hypoxia and hypercapnia Current Visit: Yes Status: Acute extubated (3) Anemia Current Visit: Yes Status: Acute Hgb low but stable fluctuating at 8.0s Qualifiers: Anemia type: iron deficiency Iron deficiency anemia type: chronic blood loss Qualified Code(s): D50.0 - Iron deficiency anemia secondary to blood loss (chronic) (4) Severe sepsis Current Visit: Yes Status: Acute Antibiotics regimen per primary team. Elevated WBCs noted (5) Hypernatremia Current Visit: Yes Status: Acute Sodium improving at 147 with free water, will continue (6) Hypoalbuminemia Current Visit: Yes Status: Acute Albumin of 1.4 noted likely from malnutrition but contributing to third spacing Subjective Principal diagnosis: GI bleed, Sepsis, acute systolic CHF. Interval history: Pt seen and examined now extubated and doing well. Objective - Vital Signs Vital signs: Vital Signs Temp Pulse Resp BP Pulse Ox 02/14/17 18:00 62 20 106/36 100 02/14/17 17:00 70 22 108/49 100 02/14/17 16:42 97.6 F 02/14/17 16:00 66 22 102/43 95 02/14/17 15:00 66 16 100/64 100 02/14/17 14:00 72 16 115/68 96 02/14/17 13:20 97.7 F 02/14/17 13:00 80 16 101/44 96 02/14/17 12:00 67 16 112/48 99 02/14/17 11:00 62 16 116/62 99 02/14/17 10:00 62 16 110/38 99 02/14/17 09:00 60 16 120/72 97 02/14/17 08:32 17 98 02/14/17 08:30 17 98 02/14/17 08:00 98.2 F 77 24 120/83 100 02/14/17 07:54 22 100 02/14/17 07:48 67 02/14/17 07:00 67 24 114/86 100 02/14/17 06:02 15 103/66 100 02/14/17 05:56 63 22 103/66 100 02/14/17 05:00 59 17 134/44 99 02/14/17 04:43 97.6 F 02/14/17 04:17 17 124/59 99 02/14/17 04:00 64 16 124/59 99 02/14/17 03:30 65 17 122/48 96 02/14/17 02:12 18 113/52 100 02/14/17 02:00 64 17 113/52 100 02/14/17 01:00 60 16 125/64 100 02/14/17 00:30 61 16 114/66 100 02/14/17 00:29 97.3 F L 02/14/17 00:11 17 92 02/13/17 23:00 66 16 110/55 92 02/13/17 22:30 63 16 107/52 91 02/13/17 22:19 16 111/48 94 02/13/17 21:30 64 16 116/61 97 02/13/17 20:45 16 100/52 98 02/13/17 20:30 64 16 100/52 97 02/13/17 20:29 97.3 F L 02/13/17 19:30 60 16 114/53 91 Intake and Output 02/14/17 02/14/17 02/14/17 07:59 15:59 23:59 Intake Total 1476.4 / 1476.4 475.6 / 475.6 Output Total 575 / 575 700 / 700 350 / 350 Balance 901.4 / 901.4 -224.4 / -224.4 -350 / -350 Intake: IV Fluids 621.4 / 621.4 115.6 / 115.6 FentaNYL (PF) 1,000 MCG 51 / 51 0 / 0 In 0.9 % Sodium Chloride 80 ML @ 50 MCG/HR 5 mls/ hr IVC CONT [facility] Rx#: [id number] Diprivan 1,000 mg In 100 170.4 / 170.4 15.6 / 15.6 ml @ 5 MCG/KG/MIN 4.068 mls/hr IVC .Q24H [facility] Rx#: [id number] Zosyn 3.375 GM In 100 / 100 100 / 100 Dextrose 5% (Minibag+) 100 ML 100 ML @ 25 mls/hr IVPB Q8HR [facility] Rx#: [id number] Potassium Chloride 20 mEq 300 / 300 /100 mL 20 meq In 100 ml @ 100 mls/hr IVPB ONCE ONE Rx#:[id number] Oral 360 / 360 Tube Feeding 255 / 255 Free Water 200 / 200 Free Water Intake Amount 400 / 400 Output: Catheter 575 / 575 700 / 700 350 / 350 Other: Weight 128.9 kg Blood Glucose* 150 115 113 Patient Weight 02/14/17 23:59 Weight 128.9 kg - General Appearance General appearance: Present: chronically ill (NAD) EENT: Present: ATNC, mucous membranes moist Neck: Present: no JVD, supple Additional Comments: improved areation ant bilat Cardiology: Present: no edema (LE bilat), normal S1, normal S2 Gastrointestinal: Present: no tenderness, no guarding, obese Integumentary: Present: warm and dry Neurologic: Present: no focal deficit Musculoskeletal: Present: no deformities Psychiatric: Present: mood/affect appropriate - Lab 02/14/17 04:13 02/14/17 04:13 Most recent lab results ABG pH 7.39 pH Units (7.32-7.45) 02/14/17 04:30 ABG pCO2 51 mmHg (35-45) H 02/14/17 04:30 ABG pO2 47 mmHg (85-104) L* 02/14/17 04:30 ABG HCO3 30.9 mEQ/L (21-27) H 02/14/17 04:30 ABG O2 Saturation 82 % (95-98) L 02/14/17 04:30 Calcium 8.2 mg/dL (8.6-10.8) L 02/14/17 04:13 Phosphorus 3.5 mg/dL (2.3-4.7) 02/12/17 03:00 Magnesium 2.4 mg/dL (1.6-2.6) 02/13/17 22:30 Urine Creatinine 158 mg/dL 02/07/17 15:26 Urine Total Protein 65 mg/dL (1-14) H 02/07/17 15:26 Consult Discharge Plan - Plan Referrals: Yasmani Baker MD [Non-Partnered Physician] - (OFFICE WILL NOT MAKE A FOLLOW UP APPOINTMENT FOR THIS PATIENT UNITL WE HAVE A DISCHARGE ORDER)
[2017-02-14] MEDS: FentaNYL (PF) 1,000 MCG in 0.9 % Sodium Chloride 80 ML IVC SCH (19:21)
[2017-02-14] MEDS: Furosemide 40 MG/4 ML VIAL IVP SCH (21:10)
[2017-02-15] MEDS: Insulin LISPRO 300 UNITS/3 ML VIAL SQ SCH ×2 (00:17→05:00)
[2017-02-15 03:32] LABS: Basophils # 0.1 K/mcL (0.0-0.2); Basophils % 0.4 %; Eosinophils # 0.3 K/mcL (0.0-0.6); Eosinophils % 1.4 %; Hematocrit 28.5 % (37.5-50.1); Hemoglobin 8.7 g/dL (12.9-16.9); Immature Granulocytes % 2.7 % (0-4); Lymphocytes # 1.5 K/mcL (0.6-4.6); Lymphocytes % 6.3 %; Mean Corpuscular HGB Conc 30.5 g/dL (31.6-35.5); Mean Corpuscular Hemoglobin 27.9 pg (28.0-33.3); Mean Corpuscular Volume 91.3 fL (83.0-100.0); Mean Platelet Volume 11.3 fL (9.4-12.4); Monocytes # 1.3 K/mcL (0.0-1.3); Monocytes % 5.5 %; Neutrophils # 19.9 K/mcL (1.6-8.9); Nucleated Red Blood Cells 0.2 /100 WBC (0); Platelet Count 202 K/mcL (140-400); Red Blood Count 3.12 M/mcL (4.19-5.50); Red Cell Distribution Width 20.2 % (11.5-14.5); Segmented Neutrophils % 83.7 %
[2017-02-15 03:47] LABS: Alanine Aminotransferase 19 Units/L (0-55); Albumin/Globulin Ratio 0.3 (1.1-2.2); Alkaline Phosphatase 136 Units/L (38-126); Aspartate Amino Transferase 37 Units/L (5-34); BUN/Creatinine Ratio 49 (6-26); Bilirubin,Direct 2.5 mg/dL (0.0-0.5); Bilirubin,Indirect 0.7 mg/dL (0.0-1.2); Bilirubin,Total 3.2 mg/dL (0.2-1.2); Calcium 8.5 mg/dL (8.6-10.8); Carbon Dioxide 27 mEq/L (19-29); Chloride 107 mEq/L (98-109); Globulin 4.9 g/dL (2.4-3.5); Glucose 128 mg/dL (70-99); Osmolality,Calculated 315 (280-300); Potassium 3.2 mEq/L (3.5-4.5); Sodium 142 mEq/L (136-145); Total Protein 6.4 g/dL (6.0-8.3); eGFR For African Americans > 60 (> 60); eGFR For Non-African Americans 50 (> 60)
[2017-02-15 03:48] LABS: Albumin 1.5 g/dL (3.5-5.0); Blood Urea Nitrogen 68 mg/dL (8-26)
[2017-02-15] MEDS: Potassium Chloride 40 MEQ/200 ML BAG IVPB PRN (04:05)
[2017-02-15] MEDS: *HR* Metoprolol 5 MG/5 ML VIAL IVP SCH ×3 (05:00→18:08)
[2017-02-15] MEDS: *HR* Heparin 5,000 UNIT/ML VIAL SQ SCH ×2 (05:00→18:08)
--- NOTE | 2017-02-15 08:13 | Pulmonology Progress Note ---
<Mariano Hamilton - Last Filed: 02/15/17 08:10> Date of Encounter: 02/15/17 Time of Encounter: 08:11 Assessment and Plan (1) Shock Current Visit: Yes Status: Acute Resolved. I think this was likely secondary to hypovolemia from blood loss. He continues to be hemodynamically stable. Given the quick resolution with blood products I think this is from his blood loss. (2) Sepsis Current Visit: Yes Status: Acute Patient still has a high white count. Trending down slightly to 23.7 today. Afebrile. 2 out of 2 blood cultures positive for group A streptococcus on 02/05/2017. Repeat blood cultures from February 07 and February 08 show no growth to date. Reviewed blood cultures from February 11 as well as from central venous catheter from a 26 showed no growth to date. Wound cultures have grown group A strep as well as providentia resistant to ceftazadime and indeterminate to Unasyn. Continue Zosyn. Duration of antibiotics will depend on clinical course. ID following. Appreciate their recommendations. (3) SAGE (acute kidney injury) Current Visit: Yes Status: Acute Creatinine is trending down. Urine output is good I Think the etiology was secondary to shock and prerenal from volume loss. Appears to be resolving now. (4) Anemia Current Visit: Yes Status: Acute Blood loss anemia. stable Hg trending up. Qualifiers: Anemia type: iron deficiency Iron deficiency anemia type: chronic blood loss Qualified Code(s): D50.0 - Iron deficiency anemia secondary to blood loss (chronic) (5) Cardiomyopathy Current Visit: Yes Status: Acute EF of 20-25%. Should consider adding YEHUDA inhibitor when patient is more stable and SAGE has resolved. He will need an ischemic workup as well once are stable. Currently he is somewhat volume overloaded. We did start IV Lasix 40 mg IV twice a day. Continue to watch his kidney function. However his kidney function continued to improve. Would also recommend starting an YEHUDA inhibitor if serum creatinine continues trending down. Qualifiers: Cardiomyopathy type: unspecified Qualified Code(s): I42.9 - Cardiomyopathy , unspecified (6) Pacemaker Current Visit: Yes Status: Acute (7) Acute systolic heart failure Current Visit: Yes Status: Acute As stated above. (8) Acute respiratory failure with hypoxia and hypercapnia Current Visit: Yes Status: Acute Improving. Now comfortable on 4 L nasal cannula. (9) Duodenal ulcer Current Visit: Yes Status: Acute Continue Protonix daily and Carafate. (10) GI bleeding Current Visit: Yes Status: Acute As stated above. 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 (12) Leukocytosis Current Visit: Yes Status: Acute Persistent leukocytosis. Mild trend down. However clinically the patient's improving and has been afebrile. If leukocytosis persists would consider repeat peripheral smear and possibly hematology consultation. (13) Thrombocytopenia Current Visit: Yes Status: Acute Stable /trending up (14) DVT prophylaxis Current Visit: Yes Status: Acute SQ heparin Subjective Principal diagnosis: GI bleed, Sepsis, acute systolic CHF. Interval history: No major events overnight. Patient is alert this morning. He does have some confusion. However this is improved from yesterday. He has no complaints this morning. He states his breathing is getting better. He denies pain. Patient is a stable for transfer out of ICU. In brief this is a 77-year-old male who was admitted to the ICU with shock. This was hemorrhagic as he had a very large GI bleed with a 4 cm ulcer that was actively bleeding on endoscopy. He would receive a total of 5 units of blood. Additionally received platelets and FFP. He would be intubated for protection of his airway as he also became altered. Additionally he was initially admitted with sepsis secondary to lower extremity cellulitis and group a streptococcus bacteremia. He initially was treated with clindamycin, pending G , and levofloxacin. This is sensitive been adjusted to single agent with Zosyn. He also has heart failure with an ejection fraction 20-25%. He was intubated on 02/08/2017. He was extubated on 02/14/2017. Today's doing well on 4 L nasal cannula. We will transfer him to the stepdown unit. We will discontinue his central line, Patel catheter, and rectal tube prior to transfer. Objective PUL Vital signs: Last Vital Signs Temp 97.6 F 02/15/17 04:58 Pulse 76 02/15/17 07:00 Resp 14 02/15/17 07:00 BP 105/29 02/15/17 07:00 Pulse Ox 97 02/15/17 07:00 Gen.: This is a well-developed well-nourished 77-year-old male who is currently alert and orientated to person and situation but not to time. Lying in bed appears to be comfortable no acute distress at this time. HEENT: Head is cephalic atraumatic. Pupils equally round reactive light and accommodation. Anicteric sclera, moist mucous membranes, poor dentition, trachea is midline. There is a right CVC in place is clean and well dressed. Heart: Regular rate and rhythm without murmurs rubs or gallops. No JVD. Lungs: Clear to auscultation bilaterally although diminished at the bases somewhat. Abdomen: Obese, soft, nondistended, nontender to palpation. Musculoskeletal: Grossly normal for age no gross deformities although she does have what appears to be a necrotic second toe on the right foot. Integument: Cellulitis and lower extremities is well dressed without any shadowing this morning. Results - Laboratory Findings CBC and BMP: 02/15/17 03:19 02/15/17 03:19 ABG ABG pH 7.39 pH Units (7.32-7.45) 02/14/17 04:30 ABG pCO2 51 mmHg (35-45) H 02/14/17 04:30 ABG pO2 47 mmHg (85-104) L* 02/14/17 04:30 ABG O2 Saturation 82 % (95-98) L 02/14/17 04:30 PT/INR, D-dimer PT 13.9 Seconds (9.4-12.1) H 02/14/17 04:13 Abnormal lab findings: Abnormal lab results WBC 23.7 K/mcL (4.3-11.1) H 02/15/17 03:19 RBC 3.12 M/mcL (4.19-5.50) L 02/15/17 03:19 Hgb 8.7 g/dL (12.9-16.9) L 02/15/17 03:19 Hct 28.5 % (37.5-50.1) L 02/15/17 03:19 MCH 27.9 pg (28.0-33.3) L 02/15/17 03:19 MCHC 30.5 g/dL (31.6-35.5) L 02/15/17 03:19 RDW 20.2 % (11.5-14.5) H 02/15/17 03:19 Metamyelocytes % 2.0 % (0) H 02/12/17 03:00 Myelocytes % 2.0 % (0) H 02/10/17 07:15 Promyelocytes % 2.0 % (0) H 02/09/17 16:16 Neutrophils # 19.9 K/mcL (1.6-8.9) H 02/15/17 03:19 Nucleated RBCs/100 WBC 0.2 /100 WBC (0) H 02/15/17 03:19 Reactive Lymphocytes Present (Not Present) A 02/13/17 03:00 Platelet Estimate Slight Decrease (Normal) L 02/13/17 03:00 Large Platelets Present (Not Present) A 02/13/17 03:00 Polychromasia 1+ (Not Present) A 02/13/17 03:00 Hypochromasia Present (Not Present) A 02/10/17 03:10 Poikilocytosis 1+ (Not Present) A 02/11/17 05:25 Anisocytosis 1+ (Not Present) A 02/13/17 03:00 Microcytosis Present (Not Present) A 02/12/17 03:00 Macrocytosis Present (Not Present) A 02/12/17 03:00 Target Cells 1+ (Not Present) A 02/13/17 03:00 ESR 71 mm/hr (0-10) H 02/07/17 16:02 PT 13.9 Seconds (9.4-12.1) H 02/14/17 04:13 APTT 40.8 Seconds (26.0-36.0) H 02/08/17 00:45 ABG pCO2 51 mmHg (35-45) H 02/14/17 04:30 ABG pO2 47 mmHg (85-104) L* 02/14/17 04:30 ABG HCO3 30.9 mEQ/L (21-27) H 02/14/17 04:30 ABG Total CO2 32.5 mEq/L (20-26) H 02/14/17 04:30 ABG O2 Saturation 82 % (95-98) L 02/14/17 04:30 ABG Base Excess 5.2 mEq/L (-2.0 to 3.0) H 02/14/17 04:30 Potassium 3.2 mEq/L (3.5-4.5) L 02/15/17 03:19 BUN 68 mg/dL (8-26) H D 02/15/17 03:19 Creatinine 1.38 mg/dL (0.72-1.25) H 02/15/17 03:19 Est GFR (Non-Af Amer) 50 (> 60) L 02/15/17 03:19 BUN/Creatinine Ratio 49 (6-26) H 02/15/17 03:19 Glucose 128 mg/dL (70-99) H 02/15/17 03:19 POC Glucose 136 (58-89) H 02/15/17 00:07 Hemoglobin A1c 6.9 % (-5.6) H 02/06/17 06:18 Calculated Osmolality 315 (280-300) H 02/15/17 03:19 Calcium 8.5 mg/dL (8.6-10.8) L 02/15/17 03:19 Iron 54 mcg/dL (65-175) L 02/08/17 06:39 Transferrin 146 mg/dL (174-364) L 02/08/17 06:39 Ferritin 808 ng/ml (22-275) H 02/08/17 06:39 Total Bilirubin 3.2 mg/dL (0.2-1.2) H 02/15/17 03:19 Direct Bilirubin 2.5 mg/dL (0.0-0.5) H 02/15/17 03:19 AST 37 Units/L (5-34) H 02/15/17 03:19 Alkaline Phosphatase 136 Units/L (38-126) H 02/15/17 03:19 Troponin I 0.24 ng/mL (0-0.03) H* 02/06/17 18:39 C-Reactive Protein 248 mg/L (Less than 5) H 02/07/17 16:02 B-Natriuretic Peptide 2958 pg/mL (0-100) H 02/05/17 23:05 Total Protein (PEP) 5.10 g/dL (6.00-8.30) L 02/08/17 06:39 Albumin 1.5 g/dL (3.5-5.0) L 02/15/17 03:19 Albumin (PEP) 2.16 g/dL (3.75-5.01) L 02/08/17 06:39 Globulin 4.9 g/dL (2.4-3.5) H 02/15/17 03:19 Albumin/Globulin Ratio 0.3 (1.1-2.2) L 02/15/17 03:19 Ezyip-3-Aaexkmtde 0.53 g/dL (0.19-0.46) H 02/08/17 06:39 HDL Cholesterol 16 mg/dL (40-59) L 02/06/17 06:18 Cholesterol/HDL Ratio 6.7 (0-4.9) H 02/06/17 06:18 Vitamin B12 1850 pg/mL (213-816) H 02/08/17 06:39 25-OH Vitamin D Total 15 ng/mL (30-80) L 02/08/17 06:39 Folate 6.4 ng/mL (7.0-31.4) L 02/08/17 06:39 Urine Clarity Cloudy (Clear) A 02/11/17 08:54 Urine Blood Moderate (Negative) H 02/11/17 08:54 Urine Bilirubin Small (Negative) H 02/11/17 08:54 Ur Leukocyte Esterase Trace (Negative) H 02/11/17 08:54 Ur Squamous Epith Cells Moderate per lpf (None-Few) H 02/11/17 08:54 Ur Culture Indicated? YES (NO) A 02/11/17 08:54 Microalb/Creat Ratio 65 (0-30) H 02/07/17 15:26 Protein/Creatinin Ratio 0.41 mg/mg (0-0.20) H 02/07/17 15:26 Urine Total Protein 65 mg/dL (1-14) H 02/07/17 15:26 Streptococcus sp PCR DETECTED (Not Detect) A 02/05/17 23:06 Group A Strep DNA DETECTED (Not Detect) A 02/05/17 23:06 - Microbiology Findings Microbiology Findings: Microbiology, Last 48 Hours 02/08/17 06:45 Blood Culture - Final Peripheral Venipuncture No growth. 02/08/17 06:39 Blood Culture - Final Peripheral Venipuncture No growth. 02/11/17 11:00 Blood Culture - Preliminary Central Venous Catheter No growth. 02/11/17 09:28 Blood Culture - Preliminary Peripheral Venipuncture No growth. 02/11/17 09:21 Blood Culture - Preliminary Peripheral Venipuncture No growth. - Clinical Findings Intake & Output: Intake & Output 02/14/17 02/15/17 02/15/17 23:59 07:59 15:59 Intake Total 150 / 150 920 / 920 Output Total 650 / 650 2049 / 2049 Balance -500 / -500 -1130 / -1130 Weight 129.909 kg Consult Discharge Plan - Plan Referrals: Yasmani Baker MD [Non-Partnered Physician] - (OFFICE WILL NOT MAKE A FOLLOW UP APPOINTMENT FOR THIS PATIENT UNITL WE HAVE A DISCHARGE ORDER) <Mynor Stover - Last Filed: 02/15/17 16:37> Date of Encounter: 02/15/17 Objective PUL Vital signs: Last Vital Signs Temp 98.0 F 02/15/17 08:00 Pulse 79 02/15/17 08:00 Resp 14 02/15/17 08:00 BP 112/42 02/15/17 08:00 Pulse Ox 98 02/15/17 08:00 Results - Laboratory Findings CBC and BMP: 02/15/17 03:19 02/15/17 03:19 ABG ABG pH 7.39 pH Units (7.32-7.45) 02/14/17 04:30 ABG pCO2 51 mmHg (35-45) H 02/14/17 04:30 ABG pO2 47 mmHg (85-104) L* 02/14/17 04:30 ABG O2 Saturation 82 % (95-98) L 02/14/17 04:30 PT/INR, D-dimer PT 13.9 Seconds (9.4-12.1) H 02/14/17 04:13 Abnormal lab findings: Abnormal lab results WBC 23.7 K/mcL (4.3-11.1) H 02/15/17 03:19 RBC 3.12 M/mcL (4.19-5.50) L 02/15/17 03:19 Hgb 8.7 g/dL (12.9-16.9) L 02/15/17 03:19 Hct 28.5 % (37.5-50.1) L 02/15/17 03:19 MCH 27.9 pg (28.0-33.3) L 02/15/17 03:19 MCHC 30.5 g/dL (31.6-35.5) L 02/15/17 03:19 RDW 20.2 % (11.5-14.5) H 02/15/17 03:19 Metamyelocytes % 2.0 % (0) H 02/12/17 03:00 Myelocytes % 2.0 % (0) H 02/10/17 07:15 Promyelocytes % 2.0 % (0) H 02/09/17 16:16 Neutrophils # 19.9 K/mcL (1.6-8.9) H 02/15/17 03:19 Nucleated RBCs/100 WBC 0.2 /100 WBC (0) H 02/15/17 03:19 Reactive Lymphocytes Present (Not Present) A 02/13/17 03:00 Platelet Estimate Slight Decrease (Normal) L 02/13/17 03:00 Large Platelets Present (Not Present) A 02/13/17 03:00 Polychromasia 1+ (Not Present) A 02/13/17 03:00 Hypochromasia Present (Not Present) A 02/10/17 03:10 Poikilocytosis 1+ (Not Present) A 02/11/17 05:25 Anisocytosis 1+ (Not Present) A 02/13/17 03:00 Microcytosis Present (Not Present) A 02/12/17 03:00 Macrocytosis Present (Not Present) A 02/12/17 03:00 Target Cells 1+ (Not Present) A 02/13/17 03:00 ESR 71 mm/hr (0-10) H 02/07/17 16:02 PT 13.9 Seconds (9.4-12.1) H 02/14/17 04:13 APTT 40.8 Seconds (26.0-36.0) H 02/08/17 00:45 ABG pCO2 51 mmHg (35-45) H 02/14/17 04:30 ABG pO2 47 mmHg (85-104) L* 02/14/17 04:30 ABG HCO3 30.9 mEQ/L (21-27) H 02/14/17 04:30 ABG Total CO2 32.5 mEq/L (20-26) H 02/14/17 04:30 ABG O2 Saturation 82 % (95-98) L 02/14/17 04:30 ABG Base Excess 5.2 mEq/L (-2.0 to 3.0) H 02/14/17 04:30 Potassium 3.2 mEq/L (3.5-4.5) L 02/15/17 03:19 BUN 68 mg/dL (8-26) H D 02/15/17 03:19 Creatinine 1.38 mg/dL (0.72-1.25) H 02/15/17 03:19 Est GFR (Non-Af Amer) 50 (> 60) L 02/15/17 03:19 BUN/Creatinine Ratio 49 (6-26) H 02/15/17 03:19 Glucose 128 mg/dL (70-99) H 02/15/17 03:19 POC Glucose 136 (58-89) H 02/15/17 00:07 Hemoglobin A1c 6.9 % (-5.6) H 02/06/17 06:18 Calculated Osmolality 315 (280-300) H 02/15/17 03:19 Calcium 8.5 mg/dL (8.6-10.8) L 02/15/17 03:19 Iron 54 mcg/dL (65-175) L 02/08/17 06:39 Transferrin 146 mg/dL (174-364) L 02/08/17 06:39 Ferritin 808 ng/ml (22-275) H 02/08/17 06:39 Total Bilirubin 3.2 mg/dL (0.2-1.2) H 02/15/17 03:19 Direct Bilirubin 2.5 mg/dL (0.0-0.5) H 02/15/17 03:19 AST 37 Units/L (5-34) H 02/15/17 03:19 Alkaline Phosphatase 136 Units/L (38-126) H 02/15/17 03:19 Troponin I 0.24 ng/mL (0-0.03) H* 02/06/17 18:39 C-Reactive Protein 248 mg/L (Less than 5) H 02/07/17 16:02 B-Natriuretic Peptide 2958 pg/mL (0-100) H 02/05/17 23:05 Total Protein (PEP) 5.10 g/dL (6.00-8.30) L 02/08/17 06:39 Albumin 1.5 g/dL (3.5-5.0) L 02/15/17 03:19 Albumin (PEP) 2.16 g/dL (3.75-5.01) L 02/08/17 06:39 Globulin 4.9 g/dL (2.4-3.5) H 02/15/17 03:19 Albumin/Globulin Ratio 0.3 (1.1-2.2) L 02/15/17 03:19 Dpirw-6-Ozheaogaj 0.53 g/dL (0.19-0.46) H 02/08/17 06:39 HDL Cholesterol 16 mg/dL (40-59) L 02/06/17 06:18 Cholesterol/HDL Ratio 6.7 (0-4.9) H 02/06/17 06:18 Vitamin B12 1850 pg/mL (213-816) H 02/08/17 06:39 25-OH Vitamin D Total 15 ng/mL (30-80) L 02/08/17 06:39 Folate 6.4 ng/mL (7.0-31.4) L 02/08/17 06:39 Urine Clarity Cloudy (Clear) A 02/11/17 08:54 Urine Blood Moderate (Negative) H 02/11/17 08:54 Urine Bilirubin Small (Negative) H 02/11/17 08:54 Ur Leukocyte Esterase Trace (Negative) H 02/11/17 08:54 Ur Squamous Epith Cells Moderate per lpf (None-Few) H 02/11/17 08:54 Ur Culture Indicated? YES (NO) A 02/11/17 08:54 Microalb/Creat Ratio 65 (0-30) H 02/07/17 15:26 Protein/Creatinin Ratio 0.41 mg/mg (0-0.20) H 02/07/17 15:26 Urine Total Protein 65 mg/dL (1-14) H 02/07/17 15:26 Streptococcus sp PCR DETECTED (Not Detect) A 02/05/17 23:06 Group A Strep DNA DETECTED (Not Detect) A 02/05/17 23:06 - Microbiology Findings Microbiology Findings: Microbiology, Last 48 Hours 02/08/17 06:45 Blood Culture - Final Peripheral Venipuncture No growth. 02/08/17 06:39 Blood Culture - Final Peripheral Venipuncture No growth. 02/11/17 11:00 Blood Culture - Preliminary Central Venous Catheter No growth. 02/11/17 09:28 Blood Culture - Preliminary Peripheral Venipuncture No growth. 02/11/17 09:21 Blood Culture - Preliminary Peripheral Venipuncture No growth. - Clinical Findings Intake & Output: Intake & Output 02/14/17 02/15/17 02/15/17 23:59 07:59 15:59 Intake Total 150 / 150 920 / 920 Output Total 650 / 650 2049 Balance -500 / -500 -1130 / -1130 Weight 129.909 kg - Attending Attestation I examined this patient and my medical decision-making was reviewed with the SHANK TAPER/PA/Advanced Practice Nurse/Resident Physician. I agree with the documented findings, disposition and treatment plan as described except to the extent set forth below. Patient seen and examined. Labs, radiology, chart personally reviewed. Agree with resident's history and physical, assessment, plan with following comments: TOY DESIGNER: Patient follows commands, Pulmonary: Acceptable oxygenation and ventilation Cardiovascular: stable and he will need to be on optimal heart failure therapy. GI: Nutrition per dietary and GI prophylaxis per routine Heme: DVT prophylaxis per routine ID: Continue antibiotics and plan to de-escalation Renal; urine out put and renal funtion reviewed Endorcine: blood glucose is monitored Lines: all lines checked and no evidence of infections. Remove unnecessary l central jere Skin: skin care to prevent pressure ulcers per nursing routine care Patient stable to be transferred out of ICU
[2017-02-15] MEDS: Furosemide 40 MG/4 ML VIAL IVP SCH ×2 (08:42→18:08)
[2017-02-15] MEDS: Lactobacillus 1 EACH CAP.SPRINK PO SCH (08:42)
[2017-02-15] MEDS: Pantoprazole 40 MG VIAL IVP SCH (08:47)
[2017-02-15] MEDS: Piperacillin/Tazobactam 3.375 GM in D5% in Water (Mini-Bag+) 100 ML IVPB SCH ×2 (08:47→18:09)
[2017-02-15] MEDS: Chlorhexidine Rinse 15 ML MOUTHWASH MM SCH ×2 (08:47→20:58)
[2017-02-15] MEDS: Aspirin 81 MG TAB.CHEW PO SCH (08:48)
[2017-02-15] MEDS ORDERED: Naloxone 0.4 MG/ML INJ IVP PRN (09:40)
[2017-02-15] MEDS ORDERED: Dextrose Gel 15 GM PO PRN ×2 (09:40)
[2017-02-15] MEDS ORDERED: Ondansetron 4 MG/2 ML VIAL IVP PRN (09:40)
[2017-02-15] MEDS ORDERED: *HR* Dextrose 50 % in Water (Syg) 50 ML SYRINGE IVP PRN (09:40)
[2017-02-15] MEDS ORDERED: Chloraseptic Spray 177 ML BOTTLE MM PRN (09:40)
[2017-02-15] MEDS ORDERED: *HR* HYDROmorphone (PF) 1 MG/ML SYRINGE IVP PRN (09:40)
[2017-02-15] MEDS ORDERED: Acetaminophen 325 MG TABLET PO PRN (09:40)
[2017-02-15] MEDS ORDERED: D5% in Water 1,000 ML IVC PRN (09:40)
--- NOTE | 2017-02-15 11:39 | Infectious Disease Progress No ---
Date of Encounter: 02/15/17 Time of Encounter: 11:36 - Assessment and Plan (1) Shock Current Visit: Yes Status: Resolved Hemorrhagic vs. septic. Patient required vasopressors, which have been turned off. Resolved. (2) Severe sepsis Current Visit: Yes Status: Acute The patient had two SIRS criteria plus SAGE, lactic acidosis, and bandemia. Likely secondary to bacteremia and RLE cellulitis. Improved. WBC remains elevated, but bandemia has resolved. Tachycardia has improved. Lactic acid level is back to normal. Blood cultures drawn 02/05/17 are positive 2/2 sets for GAS. Repeat blood cultures x 2 sets drawn 02/08/17 are negative. Additional blood cultures drawn 02/11/17 (2 peripheral and 1 from CVC) are NGTD as well. (3) Leukocytosis Current Visit: Yes Status: Acute The patient continues to have an elevated WBC despite clinical improvement. The patient has been afebrile and tachycardia has resolved. He offers no specific complaints, but the patient's mental status makes it difficult to obtain ROS. Labs are non-revealing thus far. Peripheral smear noted. Check procalcitonin. Continue antibiotics as above for now. Qualifiers: Leukocytosis type: unspecified Qualified Code(s): D72.829 - Elevated white blood cell count, unspecified (4) Bacteremia Current Visit: Yes Status: Acute Causative organism GAS. Source likely RLE cellulitis/wound infection. Blood cultures drawn 02/05/17 are positive 2/2 sets for GAS. Repeat blood cultures drawn 02/07 x 1 set and 02/08 x 2 sets are negative. Additional blood cultures drawn 02/11/17 are NGTD x 3 sets (2 peripheral and 1 from CVC). Complicated due to the presence of hardware and pacemaker. No endocarditis stigmata noted on exam. Low index of suspicion for IE. TTE negative for valvular vegetations. Continue Zosyn 3.375 grams IV Q8H (day 8 since the first set of negative blood cultures). Continue probiotic. Duration of treatment depends on the clinical picture. (5) Cellulitis Current Visit: Yes Status: Acute Although the patient does have erythema to the BLE, I believe that the LLE erythema is more likely secondary to venous stasis dermatitis rather than an acute infection. Likely secondary to venous stasis ulcers. Wound culture of the RLE ulcer positive for Providencia, GAS, and MSSA. CT of the BLE shows evidence of skin thickening of the BLE consistent with cellulitis vs. lymphedema. 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 There is no abscess or evidence of osteomyelitis. Podiatry consulted. Discussed CT findings with Dr. De Santiago re: subsidence of the hardware. Due to motion artifact on the CT, recommends plain film x-rays to evaluate for loosening. X-ray again shows subsidence, but no obvious loosening. Podiatry has been consulted and is following. ESR and CRP initially elevated. Continue antibiotics as above. Clinically, the cellulitis has improved. Wound care as outline by the podiatry team. Duration of treatment depends on the clinical picture. Monitor renal function and dose-adjust antibiotics. Qualifiers: Site of cellulitis: extremity Site of cellulitis of extremity: lower extremity Laterality: right Qualified Code(s): L03.115 - Cellulitis of right lower limb (6) SAGE (acute kidney injury) Current Visit: Yes Status: Acute Etiology unclear: SAGE on CKD vs. sepsis vs. other. Serum creatinine continues to trend down today. Nephrology consulted and following. Renal and bladder UTS non-revealing. Management per the nephrology and primary teams. Dose-adjust antibiotics based on creatinine clearance. (7) Lactic acidosis Current Visit: Yes Status: Resolved Likely secondary to sepsis. Resolved. (8) Hematemesis with nausea Current Visit: Yes Status: Resolved Secondary to GI bleed. Status post EGD 02/08/[address] Phan. Large ulcer noted during EGD that required epinephrine and placement of clip. No further bleeding noted. Further management per the GI team. (9) Back pain Current Visit: Yes Status: Resolved Secondary to DDD. CT of the C-spine and L-spine completed. Results reviewed. No infectious etiology identified. Patient currently denies pain at this time. Qualifiers: Back pain location: low back pain Chronicity: chronic Back pain laterality: midline Sciatica presence: without sciatica Qualified Code(s): M54.5 - Low back pain; G89.29 - Other chronic pain (10) Elevated troponin level Current Visit: Yes Status: Acute Likely demand ischemia secondary to sepsis. Cardiology consulted and following. (11) Acute respiratory failure with hypoxia and hypercapnia Current Visit: Yes Status: Acute Likely secondary to fluid overload from large amount of IVF and blood products on top of CHF. Ectubated 02/14/17. Pulmonology team consulted and following. (12) GI bleeding Current Visit: Yes Status: Acute Status post EGD 02/08/[address] Phan. Large duodenal ulcer noted requiring epi and hemostasis clip. Resolved. Hgb stable. Management per the GI team. 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 Status post transfusion of 5 units PRBCs with additional plasma and platelets as well. Hgb stable around 8. Management per the primary team. Qualifiers: Anemia type: iron deficiency Iron deficiency anemia type: chronic blood loss Qualified Code(s): D50.0 - Iron deficiency anemia secondary to blood loss (chronic) (15) Thrombocytopenia Current Visit: Yes Status: Resolved Resolved. Etiology unclear. Continue to trend and monitor closely. (16) A-fib Current Visit: Yes Status: Chronic Qualifiers: Atrial fibrillation type: chronic Qualified Code(s): I48.2 - Chronic atrial fibrillation (17) CAD (coronary artery disease) Current Visit: Yes Status: Chronic Qualifiers: Coronary Disease-Associated Artery/Lesion type: enterprise artery [place] vs. transplanted heart: enterprise heart Associated angina: without angina Qualified Code(s): I25.10 - Atherosclerotic heart disease of enterprise coronary artery without angina pectoris (18) CHF (congestive heart failure) Current Visit: Yes Status: Acute ECHO shows EF 20-25%. Cardiology consulted and following. Qualifiers: Congestive heart failure type: unspecified congestive heart failure type Congestive heart failure chronicity: chronic Qualified Code(s): I50.9 - Heart failure, unspecified (19) Diabetes mellitus Current Visit: Yes Status: Chronic Recommend aggressive glucose monitoring and control. Management per the primary team's recommendations. Qualifiers: Diabetes mellitus type: type 2 Diabetes mellitus complication status: with unspecified complications Diabetes mellitus longterm insulin use: without longterm use Qualified Code(s): E11.8 - Type 2 diabetes mellitus with unspecified complications - Subjective Interval history: Patient seen and examined. Weekend notes reviewed. Patient status post EGD that noted to have a large duodenal ulcer that required epinephrine injection and clip placement. Additionally, the patient suffered respiratory distress after the EGD and required intubation. He was extubated 02/14/17. Patient is awake and alert, but unable to answer questions other than when asked if he has pain he says no. He follows some commands. He complains of left wrist pain with movement during the exam. No other ROS attainable from the patient at this time. Dressings noted to have been changed early this morning. I advised the dayshift nurse I would like to see the patient's legs tomorrow and recommend waiting to do dressing changes until tomorrow morning if possible. No other new issues per nursing. Infect Dis PN-Objective Data - Labs CBC & Chem 7: 02/16/17 13:15 02/16/17 05:40 Labs: Laboratory Results - last 24 hr 02/14/17 02/14/17 02/14/17 12:26 17:13 19:38 WBC RBC Hgb Hct MCV MCH MCHC RDW Plt Count MPV Immature Gran % Seg Neutrophils % Lymphocytes % Monocytes % Eosinophils % Basophils % Neutrophils # Lymphocytes # Monocytes # Eosinophils # Basophils # Nucleated RBCs/100 WBC Sodium Potassium Chloride Carbon Dioxide BUN Creatinine Est GFR ( Amer) Est GFR (Non-Af Amer) BUN/Creatinine Ratio Glucose POC Glucose 115 H 113 H 150 H Calculated Osmolality Calcium Total Bilirubin Direct Bilirubin Indirect Bilirubin AST ALT Alkaline Phosphatase Serum Total Protein Albumin Globulin Albumin/Globulin Ratio 02/15/17 02/15/17 02/15/17 00:07 03:19 03:19 WBC 23.7 H RBC 3.12 L Hgb 8.7 L Hct 28.5 L MCV 91.3 MCH 27.9 L MCHC 30.5 L RDW 20.2 H Plt Count 202 MPV 11.3 Immature Gran % 2.7 Seg Neutrophils % 83.7 Lymphocytes % 6.3 Monocytes % 5.5 Eosinophils % 1.4 Basophils % 0.4 Neutrophils # 19.9 H Lymphocytes # 1.5 Monocytes # 1.3 Eosinophils # 0.3 Basophils # 0.1 Nucleated RBCs/100 WBC 0.2 H Sodium 142 Potassium 3.2 L Chloride 107 Carbon Dioxide 27 BUN 68 H D Creatinine 1.38 H Est GFR ( Amer) > 60 Est GFR (Non-Af Amer) 50 L BUN/Creatinine Ratio 49 H Glucose 128 H POC Glucose 136 H Calculated Osmolality 315 H Calcium 8.5 L Total Bilirubin 3.2 H Direct Bilirubin 2.5 H Indirect Bilirubin 0.7 AST 37 H ALT 19 Alkaline Phosphatase 136 H Serum Total Protein 6.4 Albumin 1.5 L Globulin 4.9 H Albumin/Globulin Ratio 0.3 L 02/15/17 11:03 WBC RBC Hgb Hct MCV MCH MCHC RDW Plt Count MPV Immature Gran % Seg Neutrophils % Lymphocytes % Monocytes % Eosinophils % Basophils % Neutrophils # Lymphocytes # Monocytes # Eosinophils # Basophils # Nucleated RBCs/100 WBC Sodium Potassium Chloride Carbon Dioxide BUN Creatinine Est GFR ( Amer) Est GFR (Non-Af Amer) BUN/Creatinine Ratio Glucose POC Glucose 155 H Calculated Osmolality Calcium Total Bilirubin Direct Bilirubin Indirect Bilirubin AST ALT Alkaline Phosphatase Serum Total Protein Albumin Globulin Albumin/Globulin Ratio Cultures: Cultures 02/08/17 06:45 Blood Culture - Final Peripheral Venipuncture No growth. 02/08/17 06:39 Blood Culture - Final Peripheral Venipuncture No growth. 02/11/17 11:00 Blood Culture - Preliminary Central Venous Catheter No growth. 02/11/17 09:28 Blood Culture - Preliminary Peripheral Venipuncture No growth. 02/11/17 09:21 Blood Culture - Preliminary Peripheral Venipuncture No growth. 02/11/17 08:54 Urine Culture - Final Urine,Clean Catch No pathogens isolated. 02/07/17 04:35 Blood Culture - Final Peripheral Venipuncture No growth. Serology 02/11/17 02/07/17 02/07/17 Range/Units 08:54 15:26 15:26 Urine Color Yellow (Yellow) Urine Clarity Cloudy A (Clear) Urine pH 5.5 (5.0-8.0) pH Units Ur Specific [place] 1.021 (1.010-1.025) Urine Protein Negative (Neg-Trace) mg/dL Urine Glucose (UA) Normal (Normal) mg/dL Urine Ketones Negative (Negative) mg/dL Urine Blood Moderate H (Negative) Urine Nitrite Negative (Negative) Urine Bilirubin Small H (Negative) Urine Urobilinogen Normal (Normal) mg/dL Ur Leukocyte Esterase Trace H (Negative) Urine Microscopic RBC 0-3 (0-3) per hpf Urine Microscopic WBC 0-3 (0-3) per hpf Ur Eosinophil Smear 0 (None Seen) % Ur Squamous Epith Cells Moderate H (None-Few) per lpf Urine Bacteria None Seen (None-Few) per hpf Hyaline Casts None Seen (None-Few) per lpf Ur Culture Indicated? YES A (NO) Urine Creatinine 158 mg/dL Urine Microalbumin 103 mg/L Microalb/Creat Ratio 65 H (0-30) Protein/Creatinin Ratio 0.41 H (0-0.20) mg/mg Urine Total Protein 65 H (1-14) mg/dL Exam - Constitutional Vitals: Temp Pulse Resp BP Pulse Ox 98.0 F 79 14 112/42 98 02/15/17 08:00 02/15/17 08:00 02/15/17 08:00 02/15/17 08:00 02/15/17 08:00 General appearance: cooperative, morbidly obese, no acute distress - Head Head exam: Present: atraumatic, normal inspection, normocephalic - Eye Eye exam: Present: EOMI, normal appearance, PERRL Pupils: Present: normal accommodation - ENT ENT exam: Present: mucous membranes dry - Neck Neck exam: Present: normal inspection Additional comments: Triple lumen CVC noted to the right neck with transparent dressing C/D/I. No erythema, warmth, tenderness, or drainage noted. - Respiratory Respiratory exam: Present: CTAB. Absent: rales, respiratory distress, rhonchi, wheezes - Cardiovascular Cardiovascular exam: Present: irregular rhythm. Absent: tachycardia - GI/Abdominal GI/Abdominal exam: Present: distended (obese), normal bowel sounds, soft. Absent: tenderness Additional comments: Rectal tube with dark brown liquid stool noted in the collection bag. No output documented since 02/13/17. Patel catheter noted to be draining dark yellow urine with sediment noted. - Extremities Exam Extremities exam: Absent: joint swelling, pedal edema, tenderness Additional comments: Dressings to the BLE C/D/I. Edema to the bilateral feet improved since last exam. Right foot second toe dusky with toenail coming off. - Neurological Exam Neurological exam: Present: alert. Absent: oriented X3 (oriented to person only.), strengths equal and symetr throughout (LUE and LLE weakness noted.), facial droop - Psychiatric Psychiatric exam: Present: normal affect, normal mood - Skin Skin exam: Present: dry, intact, normal color, warm Consult Discharge Plan - Plan Referrals: Yasmani Baker MD [Non-Partnered Physician] - (OFFICE WILL NOT MAKE A FOLLOW UP APPOINTMENT FOR THIS PATIENT UNITL WE HAVE A DISCHARGE ORDER) - Attending Attestation I examined this patient and my medical decision-making was reviewed with the BUSINESS SOLUTIONS DIRECTOR/PA/Advanced Practice Nurse/Resident Physician. I agree with the documented findings, disposition and treatment plan as described except to the extent set forth below.
[2017-02-15] MEDS ORDERED: Insulin LISPRO 300 UNITS/3 ML VIAL SQ SCH ×2 (12:00→21:00)
[2017-02-15] MEDS ORDERED: *HR* Midazolam HCl 5 MG/5 ML VIAL IVP ONE (12:01)
[2017-02-15] MEDS ORDERED: *HR* Etomidate 20 MG/10 ML AMPUL IVP ONE (12:01)
--- NOTE | 2017-02-15 12:45 | Nephrology Progress Note ---
<Lucretia Cadena - Last Filed: 02/15/17 12:45> Date of Encounter: 02/15/17 Time of Encounter: 12:43 - Assessment and Plan (1) SAGE (acute kidney injury) Status: Acute Scr continues to improve, now 1.38; GFR 50 Excellent UOP 1925ml Continue to avoid nephrotoxins (2) Anemia Status: Acute Stable at 8.7 Transfuse per parameters Qualifiers: Anemia type: iron deficiency Iron deficiency anemia type: chronic blood loss Qualified Code(s): D50.0 - Iron deficiency anemia secondary to blood loss (chronic) (3) Severe sepsis Status: Acute per primary team Subjective Principal diagnosis: GI bleed, Sepsis, acute systolic CHF. Interval history: Patient seen and examined. Eyes open but non-verbal. Objective - Vital Signs Vital signs: Vital Signs Temp Pulse Resp BP Pulse Ox 02/15/17 12:06 98.2 F 02/15/17 08:00 98.0 F 79 14 112/42 98 02/15/17 07:00 76 14 105/29 97 02/15/17 06:00 75 16 107/100 95 02/15/17 05:00 76 20 116/34 100 02/15/17 04:58 97.6 F 02/15/17 04:00 72 20 87/69 100 02/15/17 03:00 70 18 77/60 99 02/15/17 02:09 70 16 113/49 99 02/15/17 01:00 74 18 116/60 97 02/15/17 00:21 98.4 F 02/14/17 23:00 75 16 118/50 95 02/14/17 22:00 75 16 118/44 100 02/14/17 21:00 67 16 108/70 100 02/14/17 20:07 97.8 F 02/14/17 19:44 67 20 100/63 100 02/14/17 19:23 62 18 102/47 100 02/14/17 18:00 62 20 106/36 100 02/14/17 17:00 70 22 108/49 100 02/14/17 16:42 97.6 F 02/14/17 16:00 66 22 102/43 95 02/14/17 15:00 66 16 100/64 100 02/14/17 14:00 72 16 115/68 96 02/14/17 13:20 97.7 F 02/14/17 13:00 80 16 101/44 96 Intake and Output 02/14/17 02/15/17 02/15/17 23:59 07:59 15:59 Intake Total 150 / 150 920 / 920 Output Total 650 / 650 2049 700 / 700 Balance -500 / -500 -1130 / -1130 -700 / -700 Intake: IV Fluids 100 / 100 100 / 100 Zosyn 3.375 GM In 100 / 100 100 / 100 Dextrose 5% (Minibag+) 100 ML 100 ML @ 25 mls/hr IVPB Q8HR [facility] Rx#: [id number] Oral 50 / 50 820 / 820 Output: Rectal Tube 0 / 0 0 / 0 Catheter 650 / 650 2049 700 / 700 Other: Meal Breakfast Percent of Meal Consumed 85% Weight 129.909 kg Blood Glucose* 150 136 Patient Weight 02/15/17 23:59 Weight 129.909 kg - General Appearance General appearance: Present: obese EENT: Present: ATNC Neck: Present: supple Respiratory: Present: clear (decreased throughout) Cardiology: Present: edema, normal S1, normal S2 Gastrointestinal: Present: no guarding, obese Integumentary: Present: warm and dry Psychiatric: Present: cooperative - Lab 02/15/17 03:19 02/15/17 03:19 Most recent lab results ABG pH 7.39 pH Units (7.32-7.45) 02/14/17 04:30 ABG pCO2 51 mmHg (35-45) H 02/14/17 04:30 ABG pO2 47 mmHg (85-104) L* 02/14/17 04:30 ABG HCO3 30.9 mEQ/L (21-27) H 02/14/17 04:30 ABG O2 Saturation 82 % (95-98) L 02/14/17 04:30 Calcium 8.5 mg/dL (8.6-10.8) L 02/15/17 03:19 Phosphorus 3.5 mg/dL (2.3-4.7) 02/12/17 03:00 Magnesium 2.4 mg/dL (1.6-2.6) 02/13/17 22:30 Urine Creatinine 158 mg/dL 02/07/17 15:26 Urine Total Protein 65 mg/dL (1-14) H 02/07/17 15:26 Consult Discharge Plan - Plan Instructions: Ampicillin (By mouth), Furosemide (By mouth), Oxycodone/ Acetaminophen (By mouth), Meropenem (Injection), Heart Failure (DC), Cellulitis (DC), Diabetes Mellitus Type 2 in Adults (DC), Sepsis (DC), Anemia (GEN) Referrals: Samuel,Yasmani Martin MD [Non-Partnered Physician] - (Patient is going to rehab ([facility]) no PCP appointment needed) Prescriptions: OxyCODONE/APAP 5/325 [Percocet 5/325 MG] 1 each PO Q4HR PRN #20 tablet PRN Reason: MOD TO SEVERE PAIN 4-10 Ampicillin Trihydrate 1,000 mg PO Q4H #12 capsule Furosemide [Lasix] 40 mg PO BID #60 tablet Meropenem-0.9% Sodium Chloride [Meropenem-0.9% NaCl 1 Gram/50] 1 gm IV Q8H #30 piggyback <Alondra Rodriguez - Last Filed: 03/04/17 00:29> Date of Encounter: 02/15/17 - Assessment and Plan (1) SAGE (acute kidney injury) Status: Resolved (2) Acute respiratory failure with hypoxia and hypercapnia Status: Resolved (3) Anemia Status: Acute Qualifiers: Anemia type: iron deficiency Iron deficiency anemia type: chronic blood loss Qualified Code(s): D50.0 - Iron deficiency anemia secondary to blood loss (chronic) (4) Severe sepsis Status: Acute (5) Hypernatremia Status: Acute (6) Hypoalbuminemia Status: Acute Objective - Vital Signs Vital signs: Vital Signs Temp Pulse Resp BP Pulse Ox 03/03/17 16:08 19 117/65 97 03/03/17 16:00 98.2 F 74 18 126/66 95 03/03/17 12:05 97.8 F 79 19 117/65 97 03/03/17 11:44 97.8 F 79 19 117/65 97 03/03/17 10:47 19 97 03/03/17 08:30 75 03/03/17 07:49 97.9 F 75 19 134/64 97 03/03/17 04:06 18 96 03/03/17 00:33 97.8 F 87 18 127/64 98 Intake and Output 03/03/17 03/03/17 03/04/17 15:59 23:59 07:59 Intake Total 720 / 720 440 / 440 Output Total 0 / 0 1600 / 1600 Balance 720 / 720 -1160 / -1160 Intake: IV Fluids 300 / 300 200 / 200 Ampicillin 1,000 MG In 0. 200 / 200 100 / 100 9 % Sodium Chloride (Mini -Bag +) 100 ML @ 200 mls/ hr IVPB Q4HR [facility] Rx#: [id number] Merrem 1,000 MG In 0.9 % 100 / 100 100 / 100 Sodium Chloride (Mini-Bag +) 100 ML @ 200 mls/hr IVPB Q8HR [facility] Rx#: [id number] Oral 420 / 420 240 / 240 Output: Urine 800 / 800 Urethral (Patel) 800 / 800 Straight Cath 0 / 0 Catheter 800 / 800 Other: Meal Breakfast Percent of Meal Consumed 100% Blood Glucose* 132 - Lab 03/02/17 05:00 03/03/17 10:00 Most recent lab results ABG pH 7.41 pH Units (7.32-7.45) 02/20/17 04:30 ABG pCO2 45 mmHg (35-45) 02/20/17 04:30 ABG pO2 75 mmHg (85-104) L 02/20/17 04:30 ABG HCO3 28.5 mEQ/L (21-27) H 02/20/17 04:30 ABG O2 Saturation 95 % (95-98) 02/20/17 04:30 Calcium 8.1 mg/dL (8.6-10.8) L 03/02/17 05:00 Phosphorus 3.2 mg/dL (2.3-4.7) 02/28/17 00:30 Magnesium 1.5 mg/dL (1.6-2.6) L 03/03/17 10:00 Urine Creatinine 158 mg/dL 02/07/17 15:26 Urine Total Protein 65 mg/dL (1-14) H 02/07/17 15:26 - Attending Attestation I examined this patient and my medical decision-making was reviewed with the STATISTICAL MACHINE MECHANIC/PA/Advanced Practice Nurse/Resident Physician. I agree with the documented findings, disposition and treatment plan as described except to the extent set forth below. Pt seen and examined with SCr improving at 1.38, GFR 50. UOP remains very good. Continue to avoid nephrotoxins if possible.
[2017-02-15 18:35] LABS: ABG HCO3 30.4 mEQ/L (21-27); ABG Oxygen Saturation 97 % (95-98); ABG PCO2 49 mmHg (35-45); ABG PO2 89 mmHg (85-104); ABG TCO2 31.9 mEq/L (20-26); Blood Gas FiO2 30 %
[2017-02-15 18:55] LABS: BUN/Creatinine Ratio 49 (6-26); Blood Urea Nitrogen 63 mg/dL (8-26); Calcium 8.3 mg/dL (8.6-10.8); Carbon Dioxide 29 mEq/L (19-29); Chloride 111 mEq/L (98-109); Glucose 124 mg/dL (70-99); Osmolality,Calculated 321 (280-300); Potassium 3.5 mEq/L (3.5-4.5); Sodium 146 mEq/L (136-145); eGFR For African Americans > 60 (> 60); eGFR For Non-African Americans 54 (> 60)
[2017-02-15 21:36] LABS: Hematocrit 18.2 % (37.5-50.1); Mean Corpuscular HGB Conc 30.2 g/dL (31.6-35.5); Mean Corpuscular Hemoglobin 28.4 pg (28.0-33.3); Mean Corpuscular Volume 93.8 fL (83.0-100.0); Mean Platelet Volume 11.3 fL (9.4-12.4); Platelet Count 164 K/mcL (140-400); Red Blood Count 1.94 M/mcL (4.19-5.50); Red Cell Distribution Width 19.9 % (11.5-14.5)
[2017-02-15 21:41] LABS: Hemoglobin 5.5 g/dL (12.9-16.9)
[2017-02-15] MEDS ORDERED: 0.9 % Sodium Chloride 1,000 ML ONE ×3 (21:43→22:07)
[2017-02-15] MEDS: 0.9 % Sodium Chloride 1,000 ML IVC SCH (22:00)
[2017-02-15] MEDS: Pantoprazole 40 MG in 0.9 % Sodium Chloride Mini Bag 100 ML IVC SCH (22:26)
[2017-02-15] MEDS ORDERED: 0.9 % Sodium Chloride 500 ML ONE (23:15)
[2017-02-15] MEDS ORDERED: Lacri-Lube 3.5 GM TUBE BOTH EYES PRN (23:38)
--- NOTE | 2017-02-15 23:44 | Procedure Note ---
Date of procedure: 02/15/17 Pre-op diagnosis: Hypotension Post-op diagnosis: same Procedure: Arterial line placement: Jocelyn had significant hypovolemic shock and required intensive blood pressure monitoring. Verbal consent was obtained from the family. Right wrist was surveyed using ultrasound and the right radial artery was identified. Under ultrasound guidance the arterial line needle was advanced into the right radial artery. Initial flash was seen in the guidewire was threaded without resistance however when the needle and guidewire was removed there was no blood return. On the second attempt a flash was obtained in the guidewire threaded easily. On removal of the needle and guidewire there was bright red pulsatile blood flow. The catheter was then connected to a pressure transduction system and an arterial waveform was observed. The catheter was then sutured in place and sterile dressing was applied. Patient tolerated the procedure well, there were no immediate complications. Anesthesia: ROGE Surgeon: Torey Vergara Estimated blood loss (cc): 5 IV fluids (cc): 0 Pathology: none sent Condition: critical Disposition: ICU
--- NOTE | 2017-02-15 23:48 | Anesthesia Evaluation PreOp ---
Date of Encounter: 02/15/17 Time of Encounter: 23:45 - Past History Planned Operation: Emergent EGD - massive UGIB Cardiac History: MT (9 years ago and recently elevated troponins from demand ischemia), CHF (severe acute systolic CHF exacerbation - EF 20%), HTN, Hyperlipidemia, Cardiac Stent (9 years ago), Pacemaker/ICD (last interrogated 2014) Pulmonary History: Denies Any Significant HX COMMERCIAL MANAGEMENT ACCOUNTANT History: Denies Any Significant HX Other Medical History: Hepatic (acute hepatic failure with coagulopathy), Renal (acute on chronic renal failure), Other (sepsis; acute GI bleed; hemodynamic instability) Anesthesia History: No Prior Anesthetic Complications, Past Anesthesia (from last EGD - was intubated for acute CHF exacerbation following FFP administration ; patient recently intubated (1 hour ago) due to respiratory decompensation following blood and fluid administration for hemorrhagic shock) Alcohol Use: rarely Drug use: none Medications and Allergies Furosemide [Lasix] 160 mg PO BID 02/06/17 [History] Potassium Chloride [Klor-Con 10] 20 meq PO BID 02/06/17 [History] Allergies chlorpheniramine [From Coricidin HBP Cough and Cold] Allergy (Unknown, Verified 02/07/17 17:02) See Comments Unsure of reaction- medication listed on patient's PCP allergies list- dextromethorphan [From Coricidin HBP Cough and Cold] Allergy (Unknown, Verified 02/07/17 17:02) See Comments Unsure of reaction- medication listed on patient's PCP allergies list- Penicillins Allergy (Verified 02/07/17 17:02) Rash Sulfa (Sulfonamide Antibiotics) Allergy (Verified 02/07/17 17:02) Rash - Meds/Allergy Pre-op Review Medications Reviewed: Yes Allergies Reviewed: Yes Beta Blockers on Current Med List: Yes If Beta Blockers taken, Date/Time (Last Dose taken): metoprolol IV 02-15-17 18: 00 - no more due to shock Anesthesia Results - Labs 02/15/17 21:27 02/15/17 18:30 - Imaging EKG: report reviewed, image reviewed (A fib with abberant conduction) Additional studies: TTE EF 20-25% Anesthesia Exam Last Vital Signs Temp 98.3 F 02/15/17 19:59 Pulse 73 02/15/17 22:10 Resp 30 02/15/17 22:10 BP 75/61 02/15/17 22:10 Pulse Ox 99 02/15/17 22:00 Weight: 130 kg NPO (# of Hours): less than 8 hours ago - HEENT Mallampati: Intubated - COMMERCIAL MANAGEMENT ACCOUNTANT LOC: Unable to assess - Cardiac Rhythm: Regular - Pulmonary Breath Sounds: bilateral Rhonchi Anesthesia Assess/Plan ASA Score: 5, E Modified Jacque Scale for Level of Consciousness: Asleep with sluggish response to stimulus Anesthetic Plan: MAC Monitoring Plan: Standard Monitors, A-Line, CVC Recovery Plan: ICU (Very poor prognosis; discussed with family poor prognosis; without intervention, patient will likely hemorrhage to ; will proceed with family's permission (daughter is POA))
[2017-02-15 23:51] LABS: Hematocrit 23.4 % (37.5-50.1); Hemoglobin 7.4 g/dL (12.9-16.9); Mean Corpuscular HGB Conc 31.6 g/dL (31.6-35.5); Mean Corpuscular Hemoglobin 28.2 pg (28.0-33.3); Mean Corpuscular Volume 89.3 fL (83.0-100.0); Mean Platelet Volume 10.6 fL (9.4-12.4); Platelet Count 87 K/mcL (140-400); Red Blood Count 2.62 M/mcL (4.19-5.50); Red Cell Distribution Width 16.7 % (11.5-14.5)
[2017-02-15] MEDS ORDERED: Hydrocortisone Sodium Succ 100 MG/2 ML VIAL ONE (23:54)
[2017-02-16] MEDS ORDERED: 0.9 % Sodium Chloride 500 ML ONE (00:05)
[2017-02-16 00:24] LABS: ABG Base Excess -4.7 mEq/L (-2.0 to 3.0); ABG HCO3 21.6 mEQ/L (21-27); ABG Oxygen Saturation 100 % (95-98); ABG PCO2 45 mmHg (35-45); ABG PH 7.29 pH Units (7.32-7.45); ABG PO2 369 mmHg (85-104); Blood Gas FiO2 100 %
--- NOTE | 2017-02-16 01:36 | Anesthesia Evaluation Post Op ---
Date of Encounter: 02/16/17 Time of Encounter: 01:34 - Vital Signs Vital Signs: See ICU records; 1:20 vitals: BP 97/42, HR 76, RR 8, O2 100% - Lungs Lungs: Rhonchi - Airway Airway: Intubated - Cardiovascular Baseline Rhythm - Mental Status Mental Status: Sedated - Pain Pain Scale used: Unable to assess - Nausea Vomiting Nausea Vomiting: Unable to assess - Hydration Hydration: NPO, Patel catheter - Discharge PostOp Status: Transfer Patient to floor (continue care in ICU; patient is still in critical condition; continued to receive blood by ICU staff for a total of 10 U PRBC's for hh 5.5 (with slow improvement due to active bleeding))
[2017-02-16] MEDS ORDERED: *HR* EPINEPHrine 1 MG/10 ML SYRINGE ONE (01:47)
[2017-02-16] MEDS ORDERED: *HR* EPINEPHrine 1 MG/10 ML SYRINGE IVP ONE ×4 (01:49→10:31)
[2017-02-16 01:50] LABS: Red Cell Distribution Width 15.9 % (11.5-14.5)
[2017-02-16 01:52] LABS: Hematocrit 35.4 % (37.5-50.1); Hemoglobin 11.5 g/dL (12.9-16.9); Immature Platelets 5.7 % (1.1-6.1); Mean Corpuscular HGB Conc 32.5 g/dL (31.6-35.5); Mean Corpuscular Hemoglobin 28.7 pg (28.0-33.3); Mean Corpuscular Volume 88.3 fL (83.0-100.0); Mean Platelet Volume 11.4 fL (9.4-12.4); Red Blood Count 4.01 M/mcL (4.19-5.50)
[2017-02-16 01:54] LABS: INR 1.5; Prothrombin Time 16.3 Seconds (9.4-12.1)
[2017-02-16 02:04] LABS: Albumin/Globulin Ratio 0.4 (1.1-2.2); Bilirubin,Direct 3.2 mg/dL (0.0-0.5); Bilirubin,Indirect 1.1 mg/dL (0.0-1.2); Bilirubin,Total 4.3 mg/dL (0.2-1.2); Globulin 2.8 g/dL (2.4-3.5); Ionized Calcium 1.07 mmol/L (1.15-1.35); Magnesium 1.5 mg/dL (1.6-2.6); Phosphorous 5.3 mg/dL (2.3-4.7)
[2017-02-16 02:06] LABS: Albumin 1.2 g/dL (3.5-5.0)
[2017-02-16] MEDS: Norepinephrine 4 MG in D5% in Water 250 ML IVC SCH ×2 (02:12→18:01)
[2017-02-16] MEDS ORDERED: Albumin 25% 25gram/100mL 100 GM/400 ML IV.SOLN ONE (02:25)
[2017-02-16] MEDS: Pantoprazole 40 MG in 0.9 % Sodium Chloride Mini Bag 100 ML IVC SCH ×4 (02:30→20:26)
[2017-02-16] MEDS: Albumin 25% 25gram/100mL 25 GM/100 ML IV.SOLN IVC SCH ×5 (02:32→20:14)
[2017-02-16] MEDS: 0.9 % Sodium Chloride 1,000 ML IVC SCH ×5 (02:33→02:39)
[2017-02-16] MEDS: *HR* Metoprolol 5 MG/5 ML VIAL IVP SCH ×2 (02:39→05:13)
[2017-02-16] MEDS: Lacri-Lube 3.5 GM TUBE BOTH EYES SCH ×6 (02:40→20:28)
--- NOTE | 2017-02-16 02:50 | Event Note ---
Date of Encounter: 02/16/17 Time of Encounter: 02:40 I was alerted by the nurse due to large amount of dark red blood coming from the rectal tube. When I examined the patient he was awake but somewhat confused and had profuse bleeding from and around the rectal tube. Significant hypotension was also noted. Stat CBC showed hemoglobin of 5.5. Given the patient's recent history of a large bleeding ulcer this was my immediate concern. Patient was immediately rapid infused normal saline and O- blood was obtained from the blood bank and started immediately. I spoke with the administrative services coordinator who had performed the patient's most recent EGD who agreed that the patient's known ulcer was likely bleeding again. Normal saline and blood was continuously infused and a total of 4 L of normal saline and 10 units of packed red cells. 2 units of fresh frozen plasma was also infused. Patient' s blood pressure remained labile throughout the evening. Patient's mental status seemed to decline and he also seemed to have some shortness of breath so the patient was intubated by respiratory therapy. An OG tube was placed and immediately bright red blood was returned. Given the patient's labile blood pressures and arterial line was placed (see procedure note for details). The administrative services coordinator arrived in an emergent EGD was performed at bedside. The patient is known ulcer was found to be profusely bleeding with a large adherent clot. Hemostasis was eventually achieved by the endoscopist. Repeat CBC post procedure showed a hemoglobin of 11.5. Labs also showed an INR of 1.5 and platelets of 88, gastroenterology had recommended transfusion of another unit of FFP and a unit of platelets so these were ordered. Post procedure the patient continued to be hypotensive despite blood and fluids so norepinephrine was ordered and the patient responded well. 100 g of 25% albumin was also infused. The family came to the hospital several times on the patient's condition.
[2017-02-16] MEDS ORDERED: Calcium Gluconate 1,000 MG in D5% in Water 100 ML IVPB PRN (03:02)
[2017-02-16] MEDS ORDERED: Sodium Phosphate 30 MMOL in D5% in Water 100 ML IVPB PRN (03:02)
[2017-02-16] MEDS: Piperacillin/Tazobactam 3.375 GM in D5% in Water (Mini-Bag+) 100 ML IVPB SCH ×3 (04:09→20:25)
[2017-02-16 04:12] LABS: ABG Base Excess -2.2 mEq/L (-2.0 to 3.0); ABG HCO3 23.7 mEQ/L (21-27); ABG Oxygen Saturation 94 % (95-98); ABG PCO2 45 mmHg (35-45); ABG PH 7.33 pH Units (7.32-7.45); ABG PO2 75 mmHg (85-104); ABG TCO2 25.1 mEq/L (20-26); Blood Gas FiO2 50 %
[2017-02-16] MEDS ORDERED: 0.9 % Sodium Chloride 250 ML ONE ×2 (04:16→06:01)
[2017-02-16] MEDS: *HR* Heparin 5,000 UNIT/ML VIAL SQ SCH (05:46)
[2017-02-16 05:48] LABS: Basophils % 0.1 %; Eosinophils % 0.1 %; Hematocrit 25.3 % (37.5-50.1); Immature Granulocytes % 2.7 % (0-4); Lymphocytes # 1.4 K/mcL (0.6-4.6); Lymphocytes % 6.6 %; Mean Corpuscular Hemoglobin 29.4 pg (28.0-33.3); Mean Corpuscular Volume 86.3 fL (83.0-100.0); Mean Platelet Volume 10.6 fL (9.4-12.4); Monocytes # 0.9 K/mcL (0.0-1.3); Monocytes % 4.2 %; Neutrophils # 18.1 K/mcL (1.6-8.9); Nucleated Red Blood Cells 0.2 /100 WBC (0); Red Blood Count 2.93 M/mcL (4.19-5.50); Red Cell Distribution Width 16.1 % (11.5-14.5); Segmented Neutrophils % 86.3 %
[2017-02-16 05:50] LABS: Hemoglobin 8.6 g/dL (12.9-16.9)
[2017-02-16 05:57] LABS: Immature Platelets 4.9 % (1.1-6.1); Platelet Count 113 K/mcL (140-400)
[2017-02-16 06:04] LABS: BUN/Creatinine Ratio 43 (6-26); Blood Urea Nitrogen 57 mg/dL (8-26); Calcium 7.6 mg/dL (8.6-10.8); Carbon Dioxide 23 mEq/L (19-29); Chloride 113 mEq/L (98-109); Glucose 165 mg/dL (70-99); Osmolality,Calculated 320 (280-300); Potassium 3.5 mEq/L (3.5-4.5); Sodium 145 mEq/L (136-145); eGFR For African Americans > 60 (> 60); eGFR For Non-African Americans 52 (> 60)
[2017-02-16] MEDS: Potassium Chloride 40 MEQ/200 ML BAG IVPB PRN ×2 (06:48→07:58)
[2017-02-16] MEDS: Magnesium Sulfate 2 GM in D5% in Water 100 ML IVPB PRN (06:50)
--- NOTE | 2017-02-16 06:50 | Pulmonology Progress Note ---
<Carmelo Parker - Last Filed: 02/16/17 09:54> Date of Encounter: 02/16/17 Time of Encounter: 08:48 Assessment and Plan (1) Shock Current Visit: Yes Status: Resolved likely multifactorial in nature in setting of septic shock with group A strep bacteremia, hemorrhagic/hypovolemic shock, complicated by cardiomyopathy with EF 20-25% EGD from 02/08/17 showed 4cm bleeding duodenal ulcer, had clip placed and injection with epinephrine. repeat EGD on 02/15 showed same bleeding duodenal ulcer. In total, patient received 5 units prbc, one unit of platelets. currently Hg is 9.1, INR 1.5 Plan: will monitor H/H q4H, transfuse blood as needed protonix drip appreciate GI recommendations. appreciate surgery recs. CT A/P showed no signs of abscess. continue with zosyn. (2) Sepsis Current Visit: Yes Status: Acute Septic shock likely secondary to cellulitis on lower extremities. CT RLE showed severe diffuse b/l LE Subcu fat stranding and skin thickening, no drainable fluid collection, no osseous abnormality, no gas. CT left lower extremity showed no osseous abnormality, no focal gas. Blood cultures showed group A strep, repeat blood cultures negative. wound cultures showed providencia rettgeri, group A strep, staph aureus repeat blood cultures pending. Plan: continue zosyn. duration depends on clinical course. continue Levophed and wean off as tolerated. Qualifiers: Sepsis type: sepsis due to unspecified organism Qualified Code(s): A41.9 - Sepsis, unspecified organism (3) Anemia Current Visit: Yes Status: Acute plan as #1 above Qualifiers: Anemia type: iron deficiency Iron deficiency anemia type: chronic blood loss Qualified Code(s): D50.0 - Iron deficiency anemia secondary to blood loss (chronic) (4) Acute respiratory failure with hypoxia and hypercapnia Current Visit: Yes Status: Acute patient was re-intubated yesterday secondary to hypoxia, SOB, and fluid overload in setting of blood transfusions and low EF tidal volume 550, FIO2: 40%, PEEP 5 Continue with repeat ABG and mechanical ventilation: (5) SAGE (acute kidney injury) Current Visit: Yes Status: Acute Cr today was 1.33 Etiology likely pre-renal azotemia in setting of sepsis and cardiomyopathy. Plan: appreciate nephrology recs will monitor urine output renally dose meds, avoid nephrotoxic agents. (6) Cardiomyopathy Current Visit: Yes Status: Acute Echo from 02/06/17 showed LVEF 20-25%, severe global LV systolic dysfunction, mild concentric LVH, severely dilated Left atrium, no pulmonary HTN, severely dialted right atrium, diastolic dysfunction. he has no prior echo to compare, but had a stress test in 2009 with gated EF 58% elevated troponin levels, trended down, likely secondary to sepsis but ischemic cause cannot be ruled out. patient was evaluated by cardio, they recommend [facility] during stay to evaluate for possible ischemic cardiomyopathy if clinical course allows. Cardiology has Recommend medical management for now. according to tele, he has multiple episodes of ectopy, BB currently on hold due to hypotension. Qualifiers: Cardiomyopathy type: unspecified Qualified Code(s): I42.9 - Cardiomyopathy , unspecified (7) Pacemaker Current Visit: Yes Status: Acute patient has dual chamber pacemaker in place, last interrogated in 2014. (8) Acute systolic heart failure Current Visit: Yes Status: Acute BNP 2958 Echo showed EF 20-25% with severe global LV systolic dysfunction. Upon initial presentation, he was fluid overloaded. initial CXR showed trace pleural effusions. plan: continue lasix 40mg BID, patient is fluid overloaded. will monitor. strict I/O, daily weights. (9) A-fib Current Visit: Yes Status: Chronic per cardio records, patient was unaware of Afib, but he had Afib on his previous device checks. hold BB due to hypotension. CHAds/vasc: 6 (age, CHF, HTN, CAD, DM) no anticoagulation at this time due to GI bleed. Qualifiers: Atrial fibrillation type: chronic Qualified Code(s): I48.2 - Chronic atrial fibrillation (10) CAD (coronary artery disease) Current Visit: Yes Status: Chronic per prior notes, patient has hx of 4 stents, this information needs to be verified with family. Qualifiers: Coronary Disease-Associated Artery/Lesion type: redding artery [place] vs. transplanted heart: redding heart Associated angina: without angina Qualified Code(s): I25.10 - Atherosclerotic heart disease of redding coronary artery without angina pectoris (11) Diabetes mellitus Current Visit: Yes Status: Chronic A1C 6.9 continue low dose sliding scale insulin. Qualifiers: Diabetes mellitus type: type 2 Diabetes mellitus complication status: with unspecified complications Diabetes mellitus halfway insulin use: without halfway use Qualified Code(s): E11.8 - Type 2 diabetes mellitus with unspecified complications (12) DVT prophylaxis Current Visit: Yes Status: Acute cannot do EPCDs because of bilateral lower extremity cellulitis, will hold off for now. cannot do heparin due to GI bleed. Neuro/sedation: sedated on versed. pulm: acute hypoxic respiratory failure, likely multifactorial seondary to shock , cardiomyopathy, volume overload. patient is intubated. CXR shows volume overload. cardio: cardiomyopathy with EF 20-25%. Cardio recommended ischemic eval when stable. Noticed frequent ectopy. continue metoprolol IV 5mg Q6H GI/FLuids/electrolytes: on protonix drip, carafate. S/p EGD yesterday showing same duodenal bleeding ulcer. had injection of epi and cauterization. fluid overloaded. will continue lasix 40BID renal: SAGE, increased serum Cr compared to yesterday. likely pre-renal in setting of shock/sepsis/cardiomyopathy. nephro on board. no dialysis indicated at this time. ID: sepsis secondary to bilateral lower extremity cellulitis. wound cultures grew providencia rettgeri, strep pyogenes, staph aureus. appreciate ID recommendations. repeat blood cultures showed no growth. Heme/onc: shock (hemorrhagic, hypovolemic, cardiogenic), currently requiring levophed. repeat H/H Q6H. recheck lactate. discontinued ASA/heparin Endo: LDSSI. Subjective Principal diagnosis: GI bleed, Sepsis, acute systolic CHF. Interval history: 77 year old male evaluated at bedside. overnight, he was bleeding from his rectal tube, got 10 units blood, 100g albumin, 2 units FFP, 4L fluids, was scoped by Dr. Phan, intubated and sedated. Objective PUL Vital signs: Last Vital Signs Temp 97.9 F 02/16/17 06:18 Pulse 70 02/16/17 06:03 Resp 12 02/16/17 06:33 BP 99/38 02/16/17 06:18 Pulse Ox 95 02/16/17 06:33 General appearance: no acute distress (sedated) Eyes: nonicteric ENT: oropharynx moist Neck: supple Effort: other (intubated) Auscultation: bilateral: clear Cardiovascular: regular rate and rhythm, PVC's noted Gastrointestinal: hypoactive bowel sounds, soft Integumentary: cellulitis (bilateral lower extremity cellulitis) Extremities: no cyanosis (bilateral +3 lower extremity edema, bilateral upper extremity edema. ) Musculoskeletal: no deformities Ventilator Settings Ventilator Settings: Ventilator Settings, Last 8 Hours Ventilator Mode VC+ Ventilator Mode VC+ Ventilator Mode VC+ Ventilator Mode VC+ Ventilator Mode VC+ Ventilator Mode VC+ Ventilator Mode VC+ Ventilator Mode VC+ Ventilator Mode VC+ Ventilator Mode VC+ Ventilator Mode VC+ Ventilator Mode VC+ Ventilator Mode VC+ Ventilator Mode VC+ Ventilator Mode VC+ Ventilator Mode VC+ Ventilator Mode VC+ Ventilator Mode VC+ Ventilator Tidal Volume 550 Setting Ventilator Tidal Volume 550 Setting Ventilator Tidal Volume 550 Setting Ventilator Tidal Volume 550 Setting Ventilator Tidal Volume 550 Setting Ventilator Tidal Volume 550 Setting Ventilator Tidal Volume 550 Setting Ventilator Tidal Volume 550 Setting Ventilator Tidal Volume 550 Setting Ventilator Tidal Volume 550 Setting Ventilator Tidal Volume 550 Setting Ventilator Tidal Volume 550 Setting Ventilator Tidal Volume 550 Setting Ventilator Tidal Volume 550 Setting Ventilator Tidal Volume 550 Setting Ventilator Tidal Volume 550 Setting Ventilator Tidal Volume 550 Setting Ventilator Tidal Volume 550 Setting Ventilator Respiratory Rate 12 Setting Ventilator Respiratory Rate 12 Setting Ventilator Respiratory Rate 12 Setting Ventilator Respiratory Rate 12 Setting Ventilator Respiratory Rate 12 Setting Ventilator Respiratory Rate 12 Setting Ventilator Respiratory Rate 12 Setting Ventilator Respiratory Rate 12 Setting Ventilator Respiratory Rate 12 Setting Ventilator Respiratory Rate 12 Setting Ventilator Respiratory Rate 12 Setting Ventilator Respiratory Rate 12 Setting Ventilator Respiratory Rate 12 Setting Ventilator Respiratory Rate 12 Setting Ventilator Respiratory Rate 12 Setting Ventilator Respiratory Rate 12 Setting Ventilator Respiratory Rate 12 Setting Ventilator Respiratory Rate 12 Setting Actual Respiratory Rate 12 Actual Respiratory Rate 14 Actual Respiratory Rate 14 Actual Respiratory Rate 14 Actual Respiratory Rate 16 Actual Respiratory Rate 16 Actual Respiratory Rate 17 Actual Respiratory Rate 20 Actual Respiratory Rate 18 Actual Respiratory Rate 20 Actual Respiratory Rate 24 Positive End Expiratory 5 Pressure Positive End Expiratory 5 Pressure Positive End Expiratory 5 Pressure Positive End Expiratory 5 Pressure Positive End Expiratory 5 Pressure Positive End Expiratory 5 Pressure Positive End Expiratory 5 Pressure Positive End Expiratory 5 Pressure Positive End Expiratory 5 Pressure Positive End Expiratory 5 Pressure Positive End Expiratory 5 Pressure Positive End Expiratory 5 Pressure Positive End Expiratory 5 Pressure Positive End Expiratory 5 Pressure Positive End Expiratory 5 Pressure Positive End Expiratory 5 Pressure Positive End Expiratory 5 Pressure Positive End Expiratory 5 Pressure Peak Inspiratory Airway 25 Pressure Peak Inspiratory Airway 24 Pressure Peak Inspiratory Airway 24 Pressure Peak Inspiratory Airway 24 Pressure Peak Inspiratory Airway 24 Pressure Peak Inspiratory Airway 24 Pressure Peak Inspiratory Airway 26 Pressure Peak Inspiratory Airway 33 Pressure Peak Inspiratory Airway 41 Pressure Peak Inspiratory Airway 34 Pressure Results - Laboratory Findings CBC and BMP: 02/16/17 05:40 02/16/17 05:40 ABG ABG pH 7.33 pH Units (7.32-7.45) 02/16/17 04:04 ABG pCO2 45 mmHg (35-45) 02/16/17 04:04 ABG pO2 75 mmHg (85-104) L 02/16/17 04:04 ABG O2 Saturation 94 % (95-98) L 02/16/17 04:04 PT/INR, D-dimer PT 16.3 Seconds (9.4-12.1) H 02/16/17 01:38 Abnormal lab findings: Abnormal lab results WBC 21.0 K/mcL (4.3-11.1) H 02/16/17 05:40 RBC 2.93 M/mcL (4.19-5.50) L 02/16/17 05:40 Hgb 8.6 g/dL (12.9-16.9) L D 02/16/17 05:40 Hct 25.3 % (37.5-50.1) L 02/16/17 05:40 RDW 16.1 % (11.5-14.5) H 02/16/17 05:40 Plt Count 113 K/mcL (140-400) L 02/16/17 05:40 Metamyelocytes % 2.0 % (0) H 02/12/17 03:00 Myelocytes % 2.0 % (0) H 02/10/17 07:15 Promyelocytes % 2.0 % (0) H 02/09/17 16:16 Neutrophils # 18.1 K/mcL (1.6-8.9) H 02/16/17 05:40 Nucleated RBCs/100 WBC 0.2 /100 WBC (0) H 02/16/17 05:40 Reactive Lymphocytes Present (Not Present) A 02/13/17 03:00 Platelet Estimate Slight Decrease (Normal) L 02/13/17 03:00 Large Platelets Present (Not Present) A 02/13/17 03:00 Polychromasia 1+ (Not Present) A 02/13/17 03:00 Hypochromasia Present (Not Present) A 02/10/17 03:10 Poikilocytosis 1+ (Not Present) A 02/11/17 05:25 Anisocytosis 1+ (Not Present) A 02/13/17 03:00 Microcytosis Present (Not Present) A 02/12/17 03:00 Macrocytosis Present (Not Present) A 02/12/17 03:00 Target Cells 1+ (Not Present) A 02/13/17 03:00 ESR 61 mm/hr (0-10) H 02/15/17 16:45 PT 16.3 Seconds (9.4-12.1) H 02/16/17 01:38 APTT 40.8 Seconds (26.0-36.0) H 02/08/17 00:45 ABG pO2 75 mmHg (85-104) L 02/16/17 04:04 ABG O2 Saturation 94 % (95-98) L 02/16/17 04:04 ABG Base Excess -2.2 mEq/L (-2.0 to 3.0) L 02/16/17 04:04 Chloride 113 mEq/L (98-109) H 02/16/17 05:40 BUN 57 mg/dL (8-26) H 02/16/17 05:40 Creatinine 1.33 mg/dL (0.72-1.25) H 02/16/17 05:40 Est GFR (Non-Af Amer) 52 (> 60) L 02/16/17 05:40 BUN/Creatinine Ratio 43 (6-26) H 02/16/17 05:40 Glucose 165 mg/dL (70-99) H 02/16/17 05:40 POC Glucose 148 (58-89) H 02/15/17 21:14 Hemoglobin A1c 6.9 % (-5.6) H 02/06/17 06:18 Calculated Osmolality 320 (280-300) H 02/16/17 05:40 Lactic Acid 3.8 mmol/L (0.5-2.2) H 02/16/17 01:38 Calcium 7.6 mg/dL (8.6-10.8) L 02/16/17 05:40 Ionized Calcium 1.07 mmol/L (1.15-1.35) L 02/16/17 01:38 Phosphorus 5.3 mg/dL (2.3-4.7) H 02/16/17 01:38 Magnesium 1.5 mg/dL (1.6-2.6) L 02/16/17 01:38 Iron 54 mcg/dL (65-175) L 02/08/17 06:39 Transferrin 146 mg/dL (174-364) L 02/08/17 06:39 Ferritin 808 ng/ml (22-275) H 02/08/17 06:39 Total Bilirubin 4.3 mg/dL (0.2-1.2) H 02/16/17 01:38 Direct Bilirubin 3.2 mg/dL (0.0-0.5) H 02/16/17 01:38 AST 66 Units/L (5-34) H 02/16/17 01:38 Troponin I 0.24 ng/mL (0-0.03) H* 02/06/17 18:39 C-Reactive Protein 84 mg/L (Less than 5) H 02/15/17 16:45 B-Natriuretic Peptide 2958 pg/mL (0-100) H 02/05/17 23:05 Serum Total Protein 4.0 g/dL (6.0-8.3) L D 02/16/17 01:38 Total Protein (PEP) 5.10 g/dL (6.00-8.30) L 02/08/17 06:39 Albumin 1.2 g/dL (3.5-5.0) L 02/16/17 01:38 Albumin (PEP) 2.16 g/dL (3.75-5.01) L 02/08/17 06:39 Albumin/Globulin Ratio 0.4 (1.1-2.2) L 02/16/17 01:38 Omkiw-6-Xcoarxngi 0.53 g/dL (0.19-0.46) H 02/08/17 06:39 HDL Cholesterol 16 mg/dL (40-59) L 02/06/17 06:18 Cholesterol/HDL Ratio 6.7 (0-4.9) H 02/06/17 06:18 Vitamin B12 1850 pg/mL (213-816) H 02/08/17 06:39 25-OH Vitamin D Total 15 ng/mL (30-80) L 02/08/17 06:39 Folate 6.4 ng/mL (7.0-31.4) L 02/08/17 06:39 Urine Clarity Cloudy (Clear) A 02/11/17 08:54 Urine Blood Moderate (Negative) H 02/11/17 08:54 Urine Bilirubin Small (Negative) H 02/11/17 08:54 Ur Leukocyte Esterase Trace (Negative) H 02/11/17 08:54 Ur Squamous Epith Cells Moderate per lpf (None-Few) H 02/11/17 08:54 Ur Culture Indicated? YES (NO) A 02/11/17 08:54 Microalb/Creat Ratio 65 (0-30) H 02/07/17 15:26 Protein/Creatinin Ratio 0.41 mg/mg (0-0.20) H 02/07/17 15:26 Urine Total Protein 65 mg/dL (1-14) H 02/07/17 15:26 Streptococcus sp PCR DETECTED (Not Detect) A 02/05/17 23:06 Group A Strep DNA DETECTED (Not Detect) A 02/05/17 23:06 - Clinical Findings Intake & Output: Intake & Output 02/15/17 02/15/17 02/16/17 15:59 23:59 07:59 Intake Total 100 / 100 1100 / 1100 4915 / 4915 Output Total 700 / 700 900 / 900 8400 / 8400 Balance -600 / -600 200 / 200 -3485 / -3485 Weight 132.222 kg Consult Discharge Plan - Plan Referrals: Samuel,Yasmani Martin MD [Non-Partnered Physician] - (OFFICE WILL NOT MAKE A FOLLOW UP APPOINTMENT FOR THIS PATIENT UNITL WE HAVE A DISCHARGE ORDER) <Mynor Stover M - Last Filed: 02/16/17 12:10> Date of Encounter: 02/16/17 Objective PUL Vital signs: Last Vital Signs Temp 97.6 F 02/16/17 11:17 Pulse 62 02/16/17 12:00 Resp 14 02/16/17 12:00 BP 130/66 02/16/17 12:00 Pulse Ox 99 02/16/17 12:00 Ventilator Settings Ventilator Settings: Ventilator Settings, Last 8 Hours Ventilator Mode VC+ Ventilator Mode VC+ Ventilator Mode VC+ Ventilator Mode VC+ Ventilator Mode VC+ Ventilator Mode VC+ Ventilator Mode VC+ Ventilator Mode VC+ Ventilator Mode VC+ Ventilator Mode VC+ Ventilator Mode VC+ Ventilator Mode VC+ Ventilator Tidal Volume 550 Setting Ventilator Tidal Volume 550 Setting Ventilator Tidal Volume 550 Setting Ventilator Tidal Volume 550 Setting Ventilator Tidal Volume 550 Setting Ventilator Tidal Volume 550 Setting Ventilator Tidal Volume 550 Setting Ventilator Tidal Volume 550 Setting Ventilator Tidal Volume 550 Setting Ventilator Tidal Volume 550 Setting Ventilator Tidal Volume 550 Setting Ventilator Tidal Volume 550 Setting Ventilator Respiratory Rate 12 Setting Ventilator Respiratory Rate 12 Setting Ventilator Respiratory Rate 12 Setting Ventilator Respiratory Rate 12 Setting Ventilator Respiratory Rate 12 Setting Ventilator Respiratory Rate 12 Setting Ventilator Respiratory Rate 12 Setting Ventilator Respiratory Rate 12 Setting Ventilator Respiratory Rate 12 Setting Ventilator Respiratory Rate 12 Setting Ventilator Respiratory Rate 12 Setting Ventilator Respiratory Rate 12 Setting Actual Respiratory Rate 12 Actual Respiratory Rate 19 Actual Respiratory Rate 14 Actual Respiratory Rate 16 Actual Respiratory Rate 16 Actual Respiratory Rate 17 Actual Respiratory Rate 14 Actual Respiratory Rate 16 Actual Respiratory Rate 12 Actual Respiratory Rate 14 Actual Respiratory Rate 14 Actual Respiratory Rate 14 Positive End Expiratory 5 Pressure Positive End Expiratory 5 Pressure Positive End Expiratory 5 Pressure Positive End Expiratory 5 Pressure Positive End Expiratory 5 Pressure Positive End Expiratory 5 Pressure Positive End Expiratory 5 Pressure Positive End Expiratory 5 Pressure Positive End Expiratory 5 Pressure Positive End Expiratory 5 Pressure Positive End Expiratory 5 Pressure Positive End Expiratory 5 Pressure Peak Inspiratory Airway 23 Pressure Peak Inspiratory Airway 24 Pressure Peak Inspiratory Airway 25 Pressure Peak Inspiratory Airway 25 Pressure Peak Inspiratory Airway 25 Pressure Peak Inspiratory Airway 24 Pressure Peak Inspiratory Airway 24 Pressure Peak Inspiratory Airway 23 Pressure Peak Inspiratory Airway 25 Pressure Peak Inspiratory Airway 24 Pressure Peak Inspiratory Airway 24 Pressure Peak Inspiratory Airway 24 Pressure Results - Laboratory Findings CBC and BMP: 02/16/17 05:40 02/16/17 05:40 ABG ABG pH 7.33 pH Units (7.32-7.45) 02/16/17 04:04 ABG pCO2 45 mmHg (35-45) 02/16/17 04:04 ABG pO2 75 mmHg (85-104) L 02/16/17 04:04 ABG O2 Saturation 94 % (95-98) L 02/16/17 04:04 PT/INR, D-dimer PT 16.3 Seconds (9.4-12.1) H 02/16/17 01:38 Abnormal lab findings: Abnormal lab results WBC 21.0 K/mcL (4.3-11.1) H 02/16/17 05:40 RBC 2.93 M/mcL (4.19-5.50) L 02/16/17 05:40 Hgb 8.6 g/dL (12.9-16.9) L D 02/16/17 05:40 Hct 25.3 % (37.5-50.1) L 02/16/17 05:40 RDW 16.1 % (11.5-14.5) H 02/16/17 05:40 Plt Count 113 K/mcL (140-400) L 02/16/17 05:40 Metamyelocytes % 2.0 % (0) H 02/12/17 03:00 Myelocytes % 2.0 % (0) H 02/10/17 07:15 Promyelocytes % 2.0 % (0) H 02/09/17 16:16 Neutrophils # 18.1 K/mcL (1.6-8.9) H 02/16/17 05:40 Nucleated RBCs/100 WBC 0.2 /100 WBC (0) H 02/16/17 05:40 Reactive Lymphocytes Present (Not Present) A 02/13/17 03:00 Platelet Estimate Slight Decrease (Normal) L 02/13/17 03:00 Large Platelets Present (Not Present) A 02/13/17 03:00 Polychromasia 1+ (Not Present) A 02/13/17 03:00 Hypochromasia Present (Not Present) A 02/10/17 03:10 Poikilocytosis 1+ (Not Present) A 02/11/17 05:25 Anisocytosis 1+ (Not Present) A 02/13/17 03:00 Microcytosis Present (Not Present) A 02/12/17 03:00 Macrocytosis Present (Not Present) A 02/12/17 03:00 Target Cells 1+ (Not Present) A 02/13/17 03:00 ESR 61 mm/hr (0-10) H 02/15/17 16:45 PT 16.3 Seconds (9.4-12.1) H 02/16/17 01:38 APTT 40.8 Seconds (26.0-36.0) H 02/08/17 00:45 ABG pO2 75 mmHg (85-104) L 02/16/17 04:04 ABG O2 Saturation 94 % (95-98) L 02/16/17 04:04 ABG Base Excess -2.2 mEq/L (-2.0 to 3.0) L 02/16/17 04:04 Chloride 113 mEq/L (98-109) H 02/16/17 05:40 BUN 57 mg/dL (8-26) H 02/16/17 05:40 Creatinine 1.33 mg/dL (0.72-1.25) H 02/16/17 05:40 Est GFR (Non-Af Amer) 52 (> 60) L 02/16/17 05:40 BUN/Creatinine Ratio 43 (6-26) H 02/16/17 05:40 Glucose 165 mg/dL (70-99) H 02/16/17 05:40 POC Glucose 156 (58-89) H 02/16/17 11:03 Hemoglobin A1c 6.9 % (-5.6) H 02/06/17 06:18 Calculated Osmolality 320 (280-300) H 02/16/17 05:40 Calcium 7.6 mg/dL (8.6-10.8) L 02/16/17 05:40 Ionized Calcium 1.07 mmol/L (1.15-1.35) L 02/16/17 01:38 Phosphorus 5.3 mg/dL (2.3-4.7) H 02/16/17 01:38 Magnesium 1.5 mg/dL (1.6-2.6) L 02/16/17 01:38 Iron 54 mcg/dL (65-175) L 02/08/17 06:39 Transferrin 146 mg/dL (174-364) L 02/08/17 06:39 Ferritin 808 ng/ml (22-275) H 02/08/17 06:39 Total Bilirubin 4.3 mg/dL (0.2-1.2) H 02/16/17 01:38 Direct Bilirubin 3.2 mg/dL (0.0-0.5) H 02/16/17 01:38 AST 66 Units/L (5-34) H 02/16/17 01:38 Troponin I 0.24 ng/mL (0-0.03) H* 02/06/17 18:39 C-Reactive Protein 84 mg/L (Less than 5) H 02/15/17 16:45 B-Natriuretic Peptide 2958 pg/mL (0-100) H 02/05/17 23:05 Serum Total Protein 4.0 g/dL (6.0-8.3) L D 02/16/17 01:38 Total Protein (PEP) 5.10 g/dL (6.00-8.30) L 02/08/17 06:39 Albumin 1.2 g/dL (3.5-5.0) L 02/16/17 01:38 Albumin (PEP) 2.16 g/dL (3.75-5.01) L 02/08/17 06:39 Albumin/Globulin Ratio 0.4 (1.1-2.2) L 02/16/17 01:38 Czzqs-5-Dfkyxhwlp 0.53 g/dL (0.19-0.46) H 02/08/17 06:39 HDL Cholesterol 16 mg/dL (40-59) L 02/06/17 06:18 Cholesterol/HDL Ratio 6.7 (0-4.9) H 02/06/17 06:18 Vitamin B12 1850 pg/mL (213-816) H 02/08/17 06:39 25-OH Vitamin D Total 15 ng/mL (30-80) L 02/08/17 06:39 Folate 6.4 ng/mL (7.0-31.4) L 02/08/17 06:39 Urine Clarity Cloudy (Clear) A 02/11/17 08:54 Urine Blood Moderate (Negative) H 02/11/17 08:54 Urine Bilirubin Small (Negative) H 02/11/17 08:54 Ur Leukocyte Esterase Trace (Negative) H 02/11/17 08:54 Ur Squamous Epith Cells Moderate per lpf (None-Few) H 02/11/17 08:54 Ur Culture Indicated? YES (NO) A 02/11/17 08:54 Microalb/Creat Ratio 65 (0-30) H 02/07/17 15:26 Protein/Creatinin Ratio 0.41 mg/mg (0-0.20) H 02/07/17 15:26 Urine Total Protein 65 mg/dL (1-14) H 02/07/17 15:26 Streptococcus sp PCR DETECTED (Not Detect) A 02/05/17 23:06 Group A Strep DNA DETECTED (Not Detect) A 02/05/17 23:06 - Clinical Findings Intake & Output: Intake & Output 02/15/17 02/16/17 02/16/17 23:59 07:59 15:59 Intake Total 1100 / 1100 5415 / 5415 404 / 404 Output Total 900 / 900 8500 / 8500 100 / 100 Balance 200 / 200 -3085 / -3085 304 / 304 Weight 132.222 kg - Attending Attestation I examined this patient and my medical decision-making was reviewed with the COMMERCIAL ACCOUNT MANAGER/PA/Advanced Practice Nurse/Resident Physician. I agree with the documented findings, disposition and treatment plan as described except to the extent set forth below. Patient seen and examined. Labs, radiology, chart personally reviewed. 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 Lowered FiO2 and there is no plan for spontaneous breathing trial today due to hemodynamic instability. Cardiovascular: Shock due to blood loss and closely monitoring H&H with goal to keep his hemoglobin around 10. Patient with significant cardiomyopathy and multiple PVCs/V. tach will add amiodarone to his treatment GI: Nutrition per dietary and GI prophylaxis per routine. Patient with significant GI bleed. Discussed with Dr. Phan, continue monitoring H&H at this time. Patient high risk for surgery, however he continued to bleed that might be the only option. Heme: DVT prophylaxis per routine ID: Continue antibiotics and plan to de-escalation Renal; urine out put and renal funtion reviewed Endorcine: blood glucose is monitored Lines: all lines checked and no evidence of infections Skin: skin care to prevent pressure ulcers per nursing routine care Prognosis is poor and palliative consultation is appropriate. I spent 35 min of Critical Care time with this patient. It involved decision making of high complexity to assess, manipulate, and support vital organ system failure and/or to prevent further life threatening deterioration of the patient' s condition. The time involved in the performance of separately reportable procedures was not counted toward critical care time.
[2017-02-16] MEDS: Furosemide 40 MG/4 ML VIAL IVP SCH ×2 (08:57→18:00)
[2017-02-16] MEDS: Chlorhexidine Rinse 15 ML MOUTHWASH MM SCH ×2 (08:58→20:20)
[2017-02-16] MEDS: Insulin LISPRO 300 UNITS/3 ML VIAL SQ SCH ×3 (08:59→18:01)
[2017-02-16] MEDS: Lactobacillus 1 EACH CAP.SPRINK PO SCH (08:59)
[2017-02-16] MEDS ORDERED: Pantoprazole 40 MG VIAL IVP SCH (09:00)
[2017-02-16] MEDS ORDERED: Chlorhexidine Rinse 15 ML MOUTHWASH MM SCH (09:00)
[2017-02-16] MEDS ORDERED: Aspirin 81 MG TAB.CHEW PO SCH (09:00)
[2017-02-16] MEDS ORDERED: Amiodarone Premix 150 MG/100 ML BAG IVPB ONE (09:52)
[2017-02-16] MEDS ORDERED: Amiodarone Premix 360 MG/200 ML BAG IVC ONE (09:52)
[2017-02-16] MEDS ORDERED: *HR* Etomidate 20 MG/10 ML AMPUL IVP ONE (10:31)
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
--- NOTE | 2017-02-16 11:36 | Gastroenterology Progress Note ---
Date of Encounter: 02/16/17 Time of Encounter: 10:10 - Assessment and plan (1) Anemia Current Visit: Yes Status: Acute Assessment and plan: Hgb dropped to 5.5 on 02/15. At 01:38 Hgb 11.5 and at 05:40 Hgb 8.6. EGD from showed 4cm spurting, cratered duodenal ulcer, had clip placed and injection with epinephrine. Repeat EGD on 02/15 showed same bleeding duodenal ulcer. Pt continues to have bloody drainage from NG/OG, plan for repeat EGD today. Continue Levophed. Qualifiers: Anemia type: iron deficiency Iron deficiency anemia type: chronic blood loss Qualified Code(s): D50.0 - Iron deficiency anemia secondary to blood loss (chronic) (2) Severe sepsis Current Visit: Yes Status: Acute Assessment and plan: Continue IV antibiotics. (3) Cellulitis Current Visit: Yes Status: Acute Qualifiers: Site of cellulitis: extremity Site of cellulitis of extremity: lower extremity Laterality: right Qualified Code(s): L03.115 - Cellulitis of right lower limb (4) SAGE (acute kidney injury) Current Visit: Yes Status: Acute Assessment and plan: Management per Nephrology. (5) Shock Current Visit: Yes Status: Resolved Assessment and plan: Likely multifactorial in setting of bacteremia, hemorrhagic/hypovolemic shock. Emergent EGD completed yesterday, plan for repeat EGD today d/t continued bloody drainage from NG/OG and rectal tube. - Time Spent With Patient Total time spent is greater than 50% in coordination of care (as documented) at patient's floor/unit and/or counseling patient: - Subjective Interval history: Pt intubated and sedated. He was bleeding from rectal tube and OG tube. He has received 10 units of PRBC, 3 FFP, and 1 unit platelets since yesterday. Emergent EGD completed yesterday. - Constitutional Vitals: Temp Pulse Resp BP Pulse Ox 97.6 F 63 14 96/52 98 02/16/17 11:17 02/16/17 11:00 02/16/17 11:00 02/16/17 11:00 02/16/17 11:00 Exam: Intubated and sedated. - Head Head exam: Present: atraumatic, normocephalic - Eye Eye exam: Present: normal appearance, sclera anicteric - ENT ENT exam: Present: mucous membranes dry Additional comments: NG and OG tube in place with bloody drainage. - Neck Neck exam general surgery: Present: normal inspection, trachea midline - Respiratory Additional comments: Mechanical breath sounds. - Cardiovascular Cardiovascular exam: Present: RRR, +S1, +S2 - GI/Abdominal GI/Abdominal exam: Present: normal bowel sounds, soft, no peritoneal signs - Rectal Additional comments: Rectal tube with bright red blood. - Extremities Exam Extremities exam: Present: warm - Neurological Exam Neurological exam: Present: no focal deficits - Psychiatric Psychiatric exam: Present: normal affect, normal mood - Skin Skin exam: Present: dry, intact, normal color, warm Results - Labs CBC & Chem 7: 02/16/17 05:40 02/16/17 05:40 Labs: Last Result ESR 61 mm/hr (0-10) H 02/15/17 16:45 Calcium 7.6 mg/dL (8.6-10.8) L 02/16/17 05:40 Iron 54 mcg/dL (65-175) L 02/08/17 06:39 % Saturation 26 % (20-55) 02/08/17 06:39 Transferrin 146 mg/dL (174-364) L 02/08/17 06:39 Ferritin 808 ng/ml (22-275) H 02/08/17 06:39 Troponin I 0.24 ng/mL (0-0.03) H* 02/06/17 18:39 C-Reactive Protein 84 mg/L (Less than 5) H 02/15/17 16:45 Triglycerides 102 mg/dL (< 150) 02/06/17 06:18 Vitamin B12 1850 pg/mL (213-816) H 02/08/17 06:39 Folate 6.4 ng/mL (7.0-31.4) L 02/08/17 06:39 Urine Opiates Screen Negative ng/mL ([id number]) 02/06/17 00:49 Entire Visit Hgb 8.6 g/dL (12.9-16.9) L D 02/16/17 05:40 Hct 25.3 % (37.5-50.1) L 02/16/17 05:40 PT 16.3 Seconds (9.4-12.1) H 02/16/17 01:38 Ferritin 808 ng/ml (22-275) H 02/08/17 06:39 Total Bilirubin 4.3 mg/dL (0.2-1.2) H 02/16/17 01:38 AST 66 Units/L (5-34) H 02/16/17 01:38 ALT 25 Units/L (0-55) 02/16/17 01:38 Ammonia 24 mcmol/L (18-72) 02/12/17 09:50 Folate 6.4 ng/mL (7.0-31.4) L 02/08/17 06:39 E. coli (PCR) Not Detected (Not Detect) 02/05/17 23:06 - ABG ABG results: ABG ABG pH 7.33 pH Units (7.32-7.45) 02/16/17 04:04 ABG pCO2 45 mmHg (35-45) 02/16/17 04:04 ABG pO2 75 mmHg (85-104) L 02/16/17 04:04 ABG O2 Saturation 94 % (95-98) L 02/16/17 04:04 PT/INR, D-dimer PT 16.3 Seconds (9.4-12.1) H 02/16/17 01:38 - Impressions Impressions Ankle X-Ray 02/07/17 15:53 IMPRESSION: Postoperative change of right ankle total arthroplasty. Severe subsidence of the talar component is again noted, without definite evidence of loosening. D/ / 02/07/2017 21:12:21 Pino Olmos MD / [email or web address] Interpreting Provider: Pino Olmos MD Wrist X-Ray 02/15/17 16:34 IMPRESSION: Widening of the scapholunate space, suggestive of age-indeterminate scapholunate dissociation. D/ / Franky Daniel MD / Franky Daniel MD Interpreting Provider: Franky Daniel MD Chest X-Ray 02/15/17 18:18 IMPRESSION: 1. Cardiomegaly with worsening pulmonary edema and increased bibasilar lung infiltrates, likely related to atelectasis and/or pleural effusions. 2. Fractures involving the right 6th through 8th ribs. These are incompletely evaluated. Dedicated chest CT could be performed for further evaluation if clinically indicated. D/ / 02/15/2017 20:30:43 Timi Castellon MD / [facility] Interpreting Provider: Timi Castellon MD Chest X-Ray 02/15/17 22:56 IMPRESSION: The endotracheal and nasogastric tubes are in satisfactory position. Improving pulmonary edema. There is persistent left retrocardiac opacification. Small left pleural effusion is not excluded. D/ / Mariano Daniel MD / Mariano Daniel MD Interpreting Provider: Mariano Daniel MD Chest X-Ray 02/16/17 06:00 IMPRESSION: 1. Mild pulmonary vascular congestion and left basilar atelectasis/ infiltrate and probable pleural effusion without significant change. D/ / Gabrielle Almodovar MD / Gabrielle Almodovar MD Interpreting Provider: Gabrielle Almodovar MD Consult Discharge Plan - Plan Referrals: Yasmani Baker MD [Non-Partnered Physician] - (OFFICE WILL NOT MAKE A FOLLOW UP APPOINTMENT FOR THIS PATIENT UNITL WE HAVE A DISCHARGE ORDER)
--- NOTE | 2017-02-16 12:00 | Infectious Disease Progress No ---
Date of Encounter: 02/16/17 Time of Encounter: 11:57 - Assessment and Plan (1) Shock Current Visit: Yes Status: Resolved Hemorrhagic at this time. Patient has been re-started back on vasopressors to maintain adequate perfusion. Secondary to GI bleed. Management per the primary and GI teams. (2) Severe sepsis Current Visit: Yes Status: Acute The patient had two SIRS criteria plus SAGE, lactic acidosis, and bandemia. Likely secondary to bacteremia and RLE cellulitis. Improved. WBC remains elevated, but bandemia has resolved. Tachycardia has improved. Lactic acid level elevated last night, but is back to normal this morning. Blood cultures drawn 02/05/17 are positive 2/2 sets for GAS. Repeat blood cultures x 2 sets drawn 02/08/17 are negative. Additional blood cultures drawn 02/11/17 (2 peripheral and 1 from CVC) are NGTD as well. (3) Leukocytosis Current Visit: Yes Status: Acute The patient continues to have an elevated WBC despite clinical improvement. The patient has been afebrile and tachycardia has resolved. The patient is currently intubated and sedated and is therefore unable to provide any complaints. Labs are non-revealing thus far. Peripheral smear shows Dohle bodies and toxic granules, indicating infection. Chest x-ray completed 02/16/17 shows mild pulmonary vascular congestion and left basilar atelectasis/infiltrate and probable pleural effusion without significant change. Procalcitonin level pending. Continue antibiotics as above for now. Qualifiers: Leukocytosis type: unspecified Qualified Code(s): D72.829 - Elevated white blood cell count, unspecified (4) Bacteremia Current Visit: Yes Status: Acute Causative organism GAS. Source likely RLE cellulitis/wound infection. Blood cultures drawn 02/05/17 are positive 2/2 sets for GAS. Repeat blood cultures drawn 02/07 x 1 set and 02/08 x 2 sets are negative. Additional blood cultures drawn 02/11/17 are NGTD x 3 sets (2 peripheral and 1 from CVC). Complicated due to the presence of hardware and pacemaker. No endocarditis stigmata noted on exam. Low index of suspicion for IE. TTE negative for valvular vegetations. Continue Zosyn 3.375 grams IV Q8H (day 9 since the first set of negative blood cultures). Continue probiotic. Duration of treatment depends on the clinical picture. (5) Cellulitis Current Visit: Yes Status: Acute Although the patient does have erythema to the BLE, I believe that the LLE erythema is more likely secondary to venous stasis dermatitis rather than an acute infection. Likely secondary to venous stasis ulcers. Wound culture of the RLE ulcer positive for Providencia, GAS, and MSSA. CT of the BLE shows evidence of skin thickening of the BLE consistent with cellulitis vs. lymphedema. 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 There is no abscess or evidence of osteomyelitis. Podiatry consulted. Discussed CT findings with Dr. De Santiago re: subsidence of the hardware. Due to motion artifact on the CT, recommends plain film x-rays to evaluate for loosening. X-ray again shows subsidence, but no obvious loosening. Podiatry has been consulted and is following. ESR and CRP initially elevated. Continue antibiotics as above. Clinically, the cellulitis has improved. Wound care as outline by the podiatry team. Duration of treatment depends on the clinical picture. Monitor renal function and dose-adjust antibiotics. Qualifiers: Site of cellulitis: extremity Site of cellulitis of extremity: lower extremity Laterality: right Qualified Code(s): L03.115 - Cellulitis of right lower limb (6) SAGE (acute kidney injury) Current Visit: Yes Status: Acute Etiology unclear: SAGE on CKD vs. sepsis vs. other. Serum creatinine stable. Nephrology consulted and following. Management per the nephrology and primary teams. Dose-adjust antibiotics based on creatinine clearance. (7) Lactic acidosis Current Visit: Yes Status: Resolved Likely secondary to sepsis. Worsened last night due to GI bleed, but repeat level this morning shows it is back down to normal. Resolved. (8) Hematemesis with nausea Current Visit: Yes Status: Resolved Secondary to GI bleed. Status post EGD 02/08/[address] Phan. Large ulcer noted during EGD that required epinephrine and placement of clip. Repeat bleeding noted 02/15/17 with Hgb down to 5.5. Status post emergent EGD at the bedside that showed re-bleeding of the duodenal ulcer. The patient continues to have some bright red blood from his OG tube, but Hgb improved to 11 this morning after EGD and multiple blood products. Further management per the GI team. (9) Back pain Current Visit: Yes Status: Resolved Secondary to DDD. CT of the C-spine and L-spine completed. Results reviewed. No infectious etiology identified. Qualifiers: Back pain location: low back pain Chronicity: chronic Back pain laterality: midline Sciatica presence: without sciatica Qualified Code(s): M54.5 - Low back pain; G89.29 - Other chronic pain (10) Elevated troponin level Current Visit: Yes Status: Acute Likely demand ischemia secondary to sepsis. Cardiology consulted and following. (11) Acute respiratory failure with hypoxia and hypercapnia Current Visit: Yes Status: Acute Likely secondary to fluid overload from large amount of IVF and blood products on top of CHF. Ectubated 02/14/17, but required re-intubation 02/15/17. CXR shows mild pulmondary edema and left basilar infiltrate/atelectasis and probable pleural effusion. Pulmonology team consulted and following. (12) GI bleeding Current Visit: Yes Status: Acute Status post EGD 02/08/[address] Phan. Large duodenal ulcer noted requiring epi and hemostasis clip. Re-bleeding noted 02/15/17 requiring repeat EGD. Management per the GI team. 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 Etiology unclear. Continue to trend and monitor closely. (16) A-fib Current Visit: Yes Status: Chronic Qualifiers: Atrial fibrillation type: chronic Qualified Code(s): I48.2 - Chronic atrial fibrillation (17) CAD (coronary artery disease) Current Visit: Yes Status: Chronic Qualifiers: Coronary Disease-Associated Artery/Lesion type: [place] artery [place] vs. transplanted heart: [place] heart Associated angina: without angina Qualified Code(s): I25.10 - Atherosclerotic heart disease of [place] coronary artery without angina pectoris (18) CHF (congestive heart failure) Current Visit: Yes Status: Acute ECHO shows EF 20-25%. Cardiology consulted and following. Qualifiers: Congestive heart failure type: unspecified congestive heart failure type Congestive heart failure chronicity: chronic Qualified Code(s): I50.9 - Heart failure, unspecified (19) Diabetes mellitus Current Visit: Yes Status: Chronic Recommend aggressive glucose monitoring and control. Management per the primary team's recommendations. Qualifiers: Diabetes mellitus type: type 2 Diabetes mellitus complication status: with unspecified complications Diabetes mellitus vermin exterminator insulin use: without [facility] use Qualified Code(s): E11.8 - Type 2 diabetes mellitus with unspecified complications - Subjective Interval history: Patient seen and examined. Overnight events noted. Patient had large amount of dark red blood from rectal tube last night. Hgb dropped to 5.5. Emergent EGD completed at the bedside showed re-bleed of large duedenal ulcer. Multiple blood products given, as well as vasopressors to maintain adequate perfusion. Hgb up to 11 today after blood products and duodenal ulcer clip placement. Patient re-intubated due to respiratory failure. The patient remains intubated and sedated. No other ROS attainable from the patient at this time. Patient remains on vasopressor support at this time. Will defer dressing changes until later when patient more stable. Infect Dis PN-Objective Data - Labs CBC & Chem 7: 02/17/17 10:45 02/17/17 10:45 Labs: Laboratory Results - last 24 hr 02/15/17 02/15/17 02/15/17 16:45 16:45 18:25 WBC RBC Hgb Hct MCV MCH MCHC RDW Plt Count MPV Immature Gran % Seg Neutrophils % Lymphocytes % Monocytes % Eosinophils % Basophils % Neutrophils # Lymphocytes # Monocytes # Eosinophils # Basophils # Nucleated RBCs/100 WBC Immature Plt Fraction ESR 61 H PT INR ABG pH 7.40 ABG pCO2 49 H ABG pO2 89 ABG HCO3 30.4 H ABG Total CO2 31.9 H ABG O2 Saturation 97 ABG Base Excess 5.0 H Blood Gas Modality [place] Inspired O2 30 Sodium Potassium Chloride Carbon Dioxide BUN Creatinine Est GFR ( Amer) Est GFR (Non-Af Amer) BUN/Creatinine Ratio Glucose POC Glucose Calculated Osmolality Lactic Acid Calcium Ionized Calcium Phosphorus Magnesium Total Bilirubin Direct Bilirubin Indirect Bilirubin AST ALT Alkaline Phosphatase C-Reactive Protein 84 H Serum Total Protein Albumin Globulin Albumin/Globulin Ratio Blood Type Antibody Screen Crossmatch 02/15/17 02/15/17 02/15/17 18:30 21:14 21:27 WBC 19.5 H RBC 1.94 L Hgb 5.5 L* D Hct 18.2 L MCV 93.8 MCH 28.4 MCHC 30.2 L RDW 19.9 H Plt Count 164 MPV 11.3 Immature Gran % Seg Neutrophils % Lymphocytes % Monocytes % Eosinophils % Basophils % Neutrophils # Lymphocytes # Monocytes # Eosinophils # Basophils # Nucleated RBCs/100 WBC Immature Plt Fraction ESR PT INR ABG pH ABG pCO2 ABG pO2 ABG HCO3 ABG Total CO2 ABG O2 Saturation ABG Base Excess Blood Gas Modality Inspired O2 Sodium 146 H Potassium 3.5 Chloride 111 H Carbon Dioxide 29 BUN 63 H Creatinine 1.28 H Est GFR ( Amer) > 60 Est GFR (Non-Af Amer) 54 L BUN/Creatinine Ratio 49 H Glucose 124 H POC Glucose 148 H Calculated Osmolality 321 H Lactic Acid Calcium 8.3 L Ionized Calcium Phosphorus Magnesium Total Bilirubin Direct Bilirubin Indirect Bilirubin AST ALT Alkaline Phosphatase C-Reactive Protein Serum Total Protein Albumin Globulin Albumin/Globulin Ratio Blood Type Antibody Screen Crossmatch 02/15/17 02/15/17 02/16/17 21:50 23:43 00:16 WBC 17.1 H RBC 2.62 L Hgb 7.4 L D Hct 23.4 L MCV 89.3 MCH 28.2 MCHC 31.6 RDW 16.7 H Plt Count 87 L MPV 10.6 Immature Gran % Seg Neutrophils % Lymphocytes % Monocytes % Eosinophils % Basophils % Neutrophils # Lymphocytes # Monocytes # Eosinophils # Basophils # Nucleated RBCs/100 WBC Immature Plt Fraction ESR PT INR ABG pH 7.29 L ABG pCO2 45 ABG pO2 369 H ABG HCO3 21.6 ABG Total CO2 23.0 ABG O2 Saturation 100 H ABG Base Excess -4.7 L Blood Gas Modality VCT Inspired O2 100 Sodium Potassium Chloride Carbon Dioxide BUN Creatinine Est GFR ( Amer) Est GFR (Non-Af Amer) BUN/Creatinine Ratio Glucose POC Glucose Calculated Osmolality Lactic Acid Calcium Ionized Calcium Phosphorus Magnesium Total Bilirubin Direct Bilirubin Indirect Bilirubin AST ALT Alkaline Phosphatase C-Reactive Protein Serum Total Protein Albumin Globulin Albumin/Globulin Ratio Blood Type A POSITIVE Antibody Screen NEGATIVE Crossmatch See Detail 02/16/17 02/16/17 02/16/17 01:38 01:38 01:38 WBC 19.9 H RBC 4.01 L Hgb 11.5 L D Hct 35.4 L MCV 88.3 MCH 28.7 MCHC 32.5 RDW 15.9 H Plt Count 88 L MPV 11.4 Immature Gran % Seg Neutrophils % Lymphocytes % Monocytes % Eosinophils % Basophils % Neutrophils # Lymphocytes # Monocytes # Eosinophils # Basophils # Nucleated RBCs/100 WBC Immature Plt Fraction 5.7 ESR PT 16.3 H INR 1.5 ABG pH ABG pCO2 ABG pO2 ABG HCO3 ABG Total CO2 ABG O2 Saturation ABG Base Excess Blood Gas Modality Inspired O2 Sodium Potassium Chloride Carbon Dioxide BUN Creatinine Est GFR ( Amer) Est GFR (Non-Af Amer) BUN/Creatinine Ratio Glucose POC Glucose Calculated Osmolality Lactic Acid Calcium Ionized Calcium 1.07 L Phosphorus 5.3 H Magnesium 1.5 L Total Bilirubin 4.3 H Direct Bilirubin 3.2 H Indirect Bilirubin 1.1 AST 66 H ALT 25 Alkaline Phosphatase 79 C-Reactive Protein Serum Total Protein 4.0 L D Albumin 1.2 L Globulin 2.8 Albumin/Globulin Ratio 0.4 L Blood Type Antibody Screen Crossmatch 02/16/17 02/16/17 02/16/17 01:38 04:04 05:40 WBC 21.0 H RBC 2.93 L Hgb 8.6 L D Hct 25.3 L MCV 86.3 MCH 29.4 MCHC 34.0 RDW 16.1 H Plt Count 113 L MPV 10.6 Immature Gran % 2.7 Seg Neutrophils % 86.3 Lymphocytes % 6.6 Monocytes % 4.2 Eosinophils % 0.1 Basophils % 0.1 Neutrophils # 18.1 H Lymphocytes # 1.4 Monocytes # 0.9 Eosinophils # 0.0 Basophils # 0.0 Nucleated RBCs/100 WBC 0.2 H Immature Plt Fraction 4.9 ESR PT INR ABG pH 7.33 ABG pCO2 45 ABG pO2 75 L ABG HCO3 23.7 ABG Total CO2 25.1 ABG O2 Saturation 94 L ABG Base Excess -2.2 L Blood Gas Modality VCT Inspired O2 50 Sodium Potassium Chloride Carbon Dioxide BUN Creatinine Est GFR ( Amer) Est GFR (Non-Af Amer) BUN/Creatinine Ratio Glucose POC Glucose Calculated Osmolality Lactic Acid 3.8 H Calcium Ionized Calcium Phosphorus Magnesium Total Bilirubin Direct Bilirubin Indirect Bilirubin AST ALT Alkaline Phosphatase C-Reactive Protein Serum Total Protein Albumin Globulin Albumin/Globulin Ratio Blood Type Antibody Screen Crossmatch 02/16/17 02/16/17 02/16/17 05:40 07:24 08:00 WBC RBC Hgb Hct MCV MCH MCHC RDW Plt Count MPV Immature Gran % Seg Neutrophils % Lymphocytes % Monocytes % Eosinophils % Basophils % Neutrophils # Lymphocytes # Monocytes # Eosinophils # Basophils # Nucleated RBCs/100 WBC Immature Plt Fraction ESR PT INR ABG pH ABG pCO2 ABG pO2 ABG HCO3 ABG Total CO2 ABG O2 Saturation ABG Base Excess Blood Gas Modality Inspired O2 Sodium 145 Potassium 3.5 Chloride 113 H Carbon Dioxide 23 BUN 57 H Creatinine 1.33 H Est GFR ( Amer) > 60 Est GFR (Non-Af Amer) 52 L BUN/Creatinine Ratio 43 H Glucose 165 H POC Glucose 171 H Calculated Osmolality 320 H Lactic Acid 1.0 Calcium 7.6 L Ionized Calcium Phosphorus Magnesium Total Bilirubin Direct Bilirubin Indirect Bilirubin AST ALT Alkaline Phosphatase C-Reactive Protein Serum Total Protein Albumin Globulin Albumin/Globulin Ratio Blood Type Antibody Screen Crossmatch 02/16/17 11:03 WBC RBC Hgb Hct MCV MCH MCHC RDW Plt Count MPV Immature Gran % Seg Neutrophils % Lymphocytes % Monocytes % Eosinophils % Basophils % Neutrophils # Lymphocytes # Monocytes # Eosinophils # Basophils # Nucleated RBCs/100 WBC Immature Plt Fraction ESR PT INR ABG pH ABG pCO2 ABG pO2 ABG HCO3 ABG Total CO2 ABG O2 Saturation ABG Base Excess Blood Gas Modality Inspired O2 Sodium Potassium Chloride Carbon Dioxide BUN Creatinine Est GFR ( Amer) Est GFR (Non-Af Amer) BUN/Creatinine Ratio Glucose POC Glucose 156 H Calculated Osmolality Lactic Acid Calcium Ionized Calcium Phosphorus Magnesium Total Bilirubin Direct Bilirubin Indirect Bilirubin AST ALT Alkaline Phosphatase C-Reactive Protein Serum Total Protein Albumin Globulin Albumin/Globulin Ratio Blood Type Antibody Screen Crossmatch Cultures: Cultures 02/08/17 06:45 Blood Culture - Final Peripheral Venipuncture No growth. 02/08/17 06:39 Blood Culture - Final Peripheral Venipuncture No growth. 02/11/17 11:00 Blood Culture - Preliminary Central Venous Catheter No growth. 02/11/17 09:28 Blood Culture - Preliminary Peripheral Venipuncture No growth. 02/11/17 09:21 Blood Culture - Preliminary Peripheral Venipuncture No growth. 02/11/17 08:54 Urine Culture - Final Urine,Clean Catch No pathogens isolated. 02/07/17 04:35 Blood Culture - Final Peripheral Venipuncture No growth. Serology 02/11/17 02/07/17 02/07/17 Range/Units 08:54 15:26 15:26 Urine Color Yellow (Yellow) Urine Clarity Cloudy A (Clear) Urine pH 5.5 (5.0-8.0) pH Units Ur Specific [place] 1.021 (1.010-1.025) Urine Protein Negative (Neg-Trace) mg/dL Urine Glucose (UA) Normal (Normal) mg/dL Urine Ketones Negative (Negative) mg/dL Urine Blood Moderate H (Negative) Urine Nitrite Negative (Negative) Urine Bilirubin Small H (Negative) Urine Urobilinogen Normal (Normal) mg/dL Ur Leukocyte Esterase Trace H (Negative) Urine Microscopic RBC 0-3 (0-3) per hpf Urine Microscopic WBC 0-3 (0-3) per hpf Ur Eosinophil Smear 0 (None Seen) % Ur Squamous Epith Cells Moderate H (None-Few) per lpf Urine Bacteria None Seen (None-Few) per hpf Hyaline Casts None Seen (None-Few) per lpf Ur Culture Indicated? YES A (NO) Urine Creatinine 158 mg/dL Urine Microalbumin 103 mg/L Microalb/Creat Ratio 65 H (0-30) Protein/Creatinin Ratio 0.41 H (0-0.20) mg/mg Urine Total Protein 65 H (1-14) mg/dL - Impressions Impressions Ankle X-Ray 02/07/17 15:53 IMPRESSION: Postoperative change of right ankle total arthroplasty. Severe subsidence of the talar component is again noted, without definite evidence of loosening. D/ / 02/07/2017 21:12:21 Pino Olmos MD / [facility] Interpre[facility] Provider: Pino Olmos MD Wrist X-Ray 02/15/17 16:34 IMPRESSION: Widening of the scapholunate space, suggestive of age-indeterminate scapholunate dissociation. D/ / Franky Daniel MD / Franky Daniel MD Interpreting Provider: Franky Daniel MD Chest X-Ray 02/15/17 18:18 IMPRESSION: 1. Cardiomegaly with worsening pulmonary edema and increased bibasilar lung infiltrates, likely related to atelectasis and/or pleural effusions. 2. Fractures involving the right 6th through 8th ribs. These are incompletely evaluated. Dedicated chest CT could be performed for further evaluation if clinically indicated. D/ / 02/15/2017 20:30:43 Timi Castellon MD / [facility] Interpreting Provider: Timi Castellon MD Chest X-Ray 02/15/17 22:56 IMPRESSION: The endotracheal and nasogastric tubes are in satisfactory position. Improving pulmonary edema. There is persistent left retrocardiac opacification. Small left pleural effusion is not excluded. D/ / Mariano Daniel MD / Mariano Daniel MD Interpreting Provider: Mariano Daniel MD Chest X-Ray 02/16/17 06:00 IMPRESSION: 1. Mild pulmonary vascular congestion and left basilar atelectasis/ infiltrate and probable pleural effusion without significant change. D/ / Gabrielle Almodovar MD / Gabrielle Almodovar MD Interpreting Provider: Gabrielle Almodovar MD Exam - Constitutional Vitals: Temp Pulse Resp BP Pulse Ox 97.6 F 63 14 96/52 97 02/16/17 11:17 02/16/17 11:00 02/16/17 11:46 02/16/17 11:00 02/16/17 11:46 General appearance: morbidly obese, no acute distress, no febrile, no cooperative - Head Head exam: Present: atraumatic, normal inspection, normocephalic - Eye Eye exam: Present: normal appearance, PERRL Pupils: Present: normal accommodation - ENT ENT exam: Present: mucous membranes dry - Neck Neck exam: Present: normal inspection Additional comments: Triple lumen CVC noted to the right neck with transparent dressing C/D/I. No erythema, warmth, or drainage noted at the insertion site. - Respiratory Respiratory exam: Present: CTAB. Absent: rales, respiratory distress, rhonchi, wheezes - Cardiovascular Cardiovascular exam: Present: irregular rhythm. Absent: tachycardia - GI/Abdominal GI/Abdominal exam: Present: distended (obese), hypoactive bowel sounds, soft. Absent: tenderness Additional comments: OGT draining moderate amount of bright red blood. Rectal tube with large amount of dark red blood noted in the collection bag. Patel catheter draining clear, dark yellow urine. - Rectal Additional comments: Rectal tube in place. - Extremities Exam Extremities exam: Present: joint swelling (right ankle), pedal edema (1+ BLE). Absent: tenderness Additional comments: BLE dressings C/D/I without drainage. Bilateral feet are warm, mildly erythematous, and without open sores. Right ankle remains swollen, which is likely chronic due to multiple surgeries. - Neurological Exam Neurological exam: Present: altered (Sedated, gags on ETT with verbal and tactile stimuli.) - Skin Skin exam: Present: dry, intact, normal color, warm Consult Discharge Plan - Plan Referrals: Samuel,Yasmani Martin MD [Non-Partnered Physician] - (OFFICE WILL NOT MAKE A FOLLOW UP APPOINTMENT FOR THIS PATIENT UNITL WE HAVE A DISCHARGE ORDER) - Attending Attestation I examined this patient and my medical decision-making was reviewed with the SHAKE CUTTER/PA/Advanced Practice Nurse/Resident Physician. I agree with the documented findings, disposition and treatment plan as described except to the extent set forth below. pt going to have another egd right now. await to see what findings are there
--- NOTE | 2017-02-16 13:23 | Nephrology Progress Note ---
Date of Encounter: 02/16/17 Time of Encounter: 12:00 - Assessment and Plan (1) SAGE (acute kidney injury) Current Visit: Yes Status: Acute SCr appares failry stable at 1.33, GFR 52 but might worsen in the next 24hrs after profounf GI bleed form hypoperfusion, will monitor for now UOP very good so far No acute indication for JET MAN at this time Continue to avoid nephrotoxins if possible (2) Acute respiratory failure with hypoxia and hypercapnia Current Visit: Yes Status: Acute Vent settings per primary team (3) Anemia Current Visit: Yes Status: Acute Hgb fairly stable now, will continue serial checks Qualifiers: Anemia type: iron deficiency Iron deficiency anemia type: chronic blood loss Qualified Code(s): D50.0 - Iron deficiency anemia secondary to blood loss (chronic) (4) Severe sepsis Current Visit: Yes Status: Acute Antibiotics regimen per primary team. Elevated WBCs noted (5) Hypernatremia Current Visit: Yes Status: Acute Sodium normalized at 145 with free water (6) Hypoalbuminemia Current Visit: Yes Status: Acute Albumin of 1.4 noted likely from malnutrition but contributing to third spacing Subjective Principal diagnosis: GI bleed, Sepsis, acute systolic CHF. Interval history: Interim events noted. Pt now re-intubated and sedated after a long night of GI bleed requiring emergent EGD and lots of volume, transfusion etc. Nurse at bedside Objective - Vital Signs Vital signs: Vital Signs Temp Pulse Resp BP Pulse Ox 02/16/17 13:00 77 14 106/58 99 02/16/17 12:00 62 14 130/66 99 02/16/17 11:46 14 97 02/16/17 11:17 97.6 F 02/16/17 11:00 63 14 96/52 98 02/16/17 10:00 68 16 115/59 100 02/16/17 09:00 65 16 125/59 100 02/16/17 08:27 15 100 02/16/17 08:00 65 14 124/59 100 02/16/17 07:41 97.7 F 02/16/17 07:00 68 16 127/58 100 02/16/17 06:45 97.7 F 14 109/50 100 02/16/17 06:33 12 95 02/16/17 06:18 97.9 F 14 99/38 100 02/16/17 06:03 97.7 F 70 14 126/54 100 02/16/17 06:00 97.7 F 64 14 120/54 100 02/16/17 05:30 97.7 F 66 14 120/55 100 02/16/17 05:29 97.7 F 14 95/48 100 02/16/17 05:00 67 14 95/40 100 02/16/17 04:47 97.4 F L 02/16/17 04:35 97.4 F L 73 15 102/91 99 02/16/17 04:20 97.7 F 67 13 126/46 99 02/16/17 04:00 67 16 109/36 97 02/16/17 03:46 20 98 02/16/17 03:30 67 17 103/38 100 02/16/17 03:00 67 20 98/59 100 02/16/17 02:30 71 48/24 100 02/16/17 02:00 80 50/23 100 02/16/17 01:00 75 76/43 100 02/16/17 00:30 68 73/44 100 02/16/17 00:20 78 88/50 99 02/16/17 00:09 20 100 02/16/17 00:00 75 77/65 100 02/15/17 23:20 99.0 F 79 80/63 96 02/15/17 23:00 70 67/60 95 02/15/17 22:55 34 100 02/15/17 22:40 78 30 86/35 97 02/15/17 22:10 73 30 75/61 02/15/17 22:00 77 28 46/24 99 02/15/17 21:00 86 26 57/34 99 02/15/17 20:00 79 20 86/39 100 02/15/17 19:59 98.3 F 02/15/17 19:00 76 28 90/62 100 02/15/17 16:03 98.3 F 02/15/17 15:56 62 02/15/17 15:55 62 22 90/56 98 Intake and Output 02/15/17 02/16/17 02/16/17 23:59 07:59 15:59 Intake Total 1100 / 1100 5415 / 5415 404 / 404 Output Total 900 / 900 8500 / 8500 100 / 100 Balance 200 / 200 -3085 / -3085 304 / 304 Intake: IV Fluids 1100 / 1100 815 / 815 404 / 404 0.9 % Sodium Chloride 1, 1000 / 1000 000 ML @ 3750 mls/hr IVC .Q16M [facility] Rx#:[id number] Flexbumin 25 gm In 100 ml 400 / 400 @ 60 mls/hr IVC .Q1H40M [facility] Rx#:[id number] Levophed 4 MG In Dextrose 115 / 115 5% 250 ML @ 4 MCG/MIN 15 mls/hr IVC CONT [facility] Rx#: [id number] Protonix 40 MG In 0.9 % 200 / 200 Sodium Chloride (Mini-Bag +) 100 ML @ 20 mls/hr IVC .Q5H [facility] Rx#: [id number] Amiodarone Premix 150mg/ 100 / 100 100mL 150 mg In 100 ml @ 300 mls/hr IVPB ONCE ONE Rx#:[id number] Magnesium Sulfate 2 GM In 104 / 104 Dextrose 5% 100 ML @ 50 mls/hr IVPB Q6H PRN Rx#: [id number] Zosyn 3.375 GM In 100 / 100 100 / 100 Dextrose 5% (Minibag+) 100 ML 100 ML @ 25 mls/hr IVPB Q8H [facility] Rx#: [id number] Potassium Chloride 20 mEq 100 / 100 100 / 100 /100 mL 40 meq In 200 ml @ 100 mls/hr IVPB Q1H PRN Rx#:[id number] Blood Product 4600 / 4600 Plasma Unit 350 / 350 [id number] Plasma Unit 300 / 300 [id number] Plasma Unit 250 / 250 [id number] Platelet Pheresis Lp Irr 200 / 200 2nd Unit [id number] Rbcs Leuko Poor As-1 350 / 350 Unit [id number] Rbcs Leuko Poor As-1 350 / 350 Unit [id number] Rbcs Leuko Poor As-1 350 / 350 Unit [id number] Rbcs Leuko Poor As-1 350 / 350 Unit [id number] Rbcs Leuko Poor As-1 350 / 350 Unit [id number] Rbcs Leuko Poor As-1 350 / 350 Unit [id number] Rbcs Leuko Poor As-1 350 / 350 Unit [id number] Rbcs Leuko Poor As-1 350 / 350 Unit [id number] Rbcs Leuko Poor As-3 Ph 350 / 350 Unit [id number] Rbcs Leuko Poor As-3 Ph 350 / 350 Unit [id number] Output: Rectal Tube 100 / 100 7800 / 7800 0 / 0 Catheter 800 / 800 300 / 300 100 / 100 Gastric Drainage 400 / 400 0 / 0 Other: Weight 132.222 kg Blood Glucose* 171 156 Patient Weight 02/16/17 23:59 Weight 132.222 kg - General Appearance General appearance: Present: sedated on ventilator, intubated EENT: Present: ATNC Neck: Present: supple Respiratory: Present: course breath sounds Cardiology: Present: edema (LE, UE bilat), normal S1, normal S2 Gastrointestinal: Present: no tenderness, no guarding, obese Integumentary: Present: warm and dry Additional Comments: sedated Musculoskeletal: Present: no deformities Additional Comments: sedated - Lab 02/16/17 13:15 02/16/17 05:40 Most recent lab results ABG pH 7.33 pH Units (7.32-7.45) 02/16/17 04:04 ABG pCO2 45 mmHg (35-45) 02/16/17 04:04 ABG pO2 75 mmHg (85-104) L 02/16/17 04:04 ABG HCO3 23.7 mEQ/L (21-27) 02/16/17 04:04 ABG O2 Saturation 94 % (95-98) L 02/16/17 04:04 Calcium 7.6 mg/dL (8.6-10.8) L 02/16/17 05:40 Phosphorus 5.3 mg/dL (2.3-4.7) H 02/16/17 01:38 Magnesium 1.5 mg/dL (1.6-2.6) L 02/16/17 01:38 Urine Creatinine 158 mg/dL 02/07/17 15:26 Urine Total Protein 65 mg/dL (1-14) H 02/07/17 15:26 Consult Discharge Plan - Plan Referrals: Yasmani Baker MD [Non-Partnered Physician] - (OFFICE WILL NOT MAKE A FOLLOW UP APPOINTMENT FOR THIS PATIENT UNITL WE HAVE A DISCHARGE ORDER)
[2017-02-16 13:33] LABS: Basophils % 0.1 %; Eosinophils % 0.1 %; Hematocrit 24.3 % (37.5-50.1); Hemoglobin 8.4 g/dL (12.9-16.9); Immature Granulocytes % 1.7 % (0-4); Lymphocytes # 1.3 K/mcL (0.6-4.6); Lymphocytes % 7.6 %; Mean Corpuscular HGB Conc 34.6 g/dL (31.6-35.5); Mean Corpuscular Hemoglobin 29.5 pg (28.0-33.3); Mean Corpuscular Volume 85.3 fL (83.0-100.0); Mean Platelet Volume 10.7 fL (9.4-12.4); Monocytes # 0.8 K/mcL (0.0-1.3); Monocytes % 4.6 %; Neutrophils # 15.2 K/mcL (1.6-8.9); Nucleated Red Blood Cells 0.1 /100 WBC (0); Platelet Count 121 K/mcL (140-400); Red Blood Count 2.85 M/mcL (4.19-5.50); Red Cell Distribution Width 16.6 % (11.5-14.5); Segmented Neutrophils % 85.9 %
--- NOTE | 2017-02-16 13:59 | Venous Imaging Report ---
UE Venous Duplex Patient Name:Bello Montanez Order Number:[id number] Procedure Date:02/16/2017 Date:1940Age:77 yrs Gender:Male Location:[facility] Room #: IC11 Workshop Manager:BRAXTON ParksT, RDCS Referring MD:Mariano Hamilton DO infant and toddler teacher:None Reading MD:Yasmani Guadarrama MD Primary Indications:LEFT UPPER EXTREMITY EDEMA Secondary Indications: Risk Factors Yes/No Anticoagulants Yes Impressions: Left lower extremity: normal superficial and deep exam. Findings Venous Duplex Results: Left: Venous imaging of the upper extremity reveals full patency and normal vessel compressibility of the left jugular, left subclavian, left axillary, left brachial, left cephalic, left basilic, left radial and left ulnar. Doppler signals in the evaluated veins were normal. Prior Study: No prior study available for comparison. Upper Extremity Venous Duplex Side Vein Compress Spontaneous Flow Augment Left Jugular Normal Yes Phasic Yes Left Subclavian Normal Yes Phasic Yes Left Axillary Normal Yes Phasic Yes Left Brachial Normal Yes Phasic Yes Left Cephalic Normal Yes Phasic Yes Left Basilic Normal Yes Phasic Yes Left Radial Normal Yes Phasic Yes Left Ulnar Normal Yes Phasic Yes Updated by Yasmani Guadarrama MD on 02/16/2017 1:55:44 PM electronically signed on 02/16/2017 1:55:54 PM with status of Final
[2017-02-16] MEDS: Amiodarone Premix 360 MG/200 ML BAG IVC SCH (16:56)
[2017-02-16 18:20] LABS: Basophils % 0.2 %; Eosinophils % 0.1 %; Hematocrit 26.3 % (37.5-50.1); Hemoglobin 8.7 g/dL (12.9-16.9); Immature Granulocytes % 1.5 % (0-4); Lymphocytes # 1.6 K/mcL (0.6-4.6); Lymphocytes % 8.4 %; Mean Corpuscular HGB Conc 33.1 g/dL (31.6-35.5); Mean Corpuscular Hemoglobin 28.6 pg (28.0-33.3); Mean Corpuscular Volume 86.5 fL (83.0-100.0); Mean Platelet Volume 10.3 fL (9.4-12.4); Monocytes # 1.3 K/mcL (0.0-1.3); Monocytes % 6.7 %; Neutrophils # 15.4 K/mcL (1.6-8.9); Nucleated Red Blood Cells 0.2 /100 WBC (0); Platelet Count 134 K/mcL (140-400); Red Blood Count 3.04 M/mcL (4.19-5.50); Red Cell Distribution Width 16.9 % (11.5-14.5); Segmented Neutrophils % 83.1 %
[2017-02-16 22:20] LABS: Basophils # 0.1 K/mcL (0.0-0.2); Basophils % 0.3 %; Eosinophils # 0.1 K/mcL (0.0-0.6); Eosinophils % 0.3 %; Hematocrit 25.8 % (37.5-50.1); Hemoglobin 8.6 g/dL (12.9-16.9); Immature Granulocytes % 1.3 % (0-4); Lymphocytes # 1.6 K/mcL (0.6-4.6); Lymphocytes % 8.5 %; Mean Corpuscular HGB Conc 33.3 g/dL (31.6-35.5); Mean Corpuscular Hemoglobin 28.7 pg (28.0-33.3); Mean Platelet Volume 10.1 fL (9.4-12.4); Monocytes # 1.3 K/mcL (0.0-1.3); Monocytes % 7.2 %; Neutrophils # 15.1 K/mcL (1.6-8.9); Platelet Count 141 K/mcL (140-400); Red Cell Distribution Width 17.1 % (11.5-14.5); Segmented Neutrophils % 82.4 %
[2017-02-17] MEDS: Insulin LISPRO 300 UNITS/3 ML VIAL SQ SCH ×5 (00:20→23:24)
[2017-02-17] MEDS: Lacri-Lube 3.5 GM TUBE BOTH EYES SCH ×7 (00:21→23:25)
[2017-02-17] MEDS: Pantoprazole 40 MG in 0.9 % Sodium Chloride Mini Bag 100 ML IVC SCH ×5 (00:50→23:04)
[2017-02-17 03:50] LABS: Basophils # 0.1 K/mcL (0.0-0.2); Basophils % 0.4 %; Eosinophils # 0.2 K/mcL (0.0-0.6); Eosinophils % 1.3 %; Hematocrit 23.4 % (37.5-50.1); Hemoglobin 7.8 g/dL (12.9-16.9); Immature Granulocytes % 1.2 % (0-4); Lymphocytes # 1.5 K/mcL (0.6-4.6); Lymphocytes % 9.1 %; Mean Corpuscular HGB Conc 33.3 g/dL (31.6-35.5); Mean Platelet Volume 10.8 fL (9.4-12.4); Monocytes # 1.1 K/mcL (0.0-1.3); Monocytes % 6.6 %; Neutrophils # 13.1 K/mcL (1.6-8.9); Platelet Count 133 K/mcL (140-400); Red Blood Count 2.69 M/mcL (4.19-5.50); Segmented Neutrophils % 81.4 %
[2017-02-17 04:03] LABS: BUN/Creatinine Ratio 41 (6-26); Blood Urea Nitrogen 56 mg/dL (8-26); Calcium 7.9 mg/dL (8.6-10.8); Carbon Dioxide 27 mEq/L (19-29); Chloride 115 mEq/L (98-109); Glucose 119 mg/dL (70-99); Magnesium 1.9 mg/dL (1.6-2.6); Osmolality,Calculated 321 (280-300); Phosphorous 3.5 mg/dL (2.3-4.7); Sodium 147 mEq/L (136-145); eGFR For African Americans > 60 (> 60); eGFR For Non-African Americans 50 (> 60)
[2017-02-17 04:13] LABS: Ionized Calcium 1.27 mmol/L (1.15-1.35)
[2017-02-17] MEDS: Norepinephrine 4 MG in D5% in Water 250 ML IVC SCH (04:38)
[2017-02-17] MEDS: Amiodarone Premix 360 MG/200 ML BAG IVC SCH ×2 (04:42→16:42)
[2017-02-17] MEDS: Piperacillin/Tazobactam 3.375 GM in D5% in Water (Mini-Bag+) 100 ML IVPB SCH ×3 (04:44→20:59)
[2017-02-17 04:54] LABS: ABG Base Excess 3.3 mEq/L (-2.0 to 3.0); ABG HCO3 28.5 mEQ/L (21-27); ABG Oxygen Saturation 97 % (95-98); ABG PCO2 46 mmHg (35-45); ABG PO2 92 mmHg (85-104); ABG TCO2 29.9 mEq/L (20-26)
[2017-02-17 04:55] LABS: Blood Gas FiO2 40 %
[2017-02-17] MEDS ORDERED: 0.9 % Sodium Chloride 250 ML ONE ×3 (05:08→23:00)
[2017-02-17] MEDS: Potassium Chloride 40 MEQ/200 ML BAG IVPB PRN ×3 (06:10→22:35)
[2017-02-17] MEDS: Magnesium Sulfate 2 GM in D5% in Water 100 ML IVPB PRN (06:22)
[2017-02-17] MEDS: Chlorhexidine Rinse 15 ML MOUTHWASH MM SCH ×2 (07:42→20:59)
[2017-02-17] MEDS: Lactobacillus 1 EACH CAP.SPRINK PO SCH (07:42)
[2017-02-17] MEDS: Furosemide 40 MG/4 ML VIAL IVP SCH ×2 (07:42→16:32)
--- NOTE | 2017-02-17 09:14 | Pulmonology Progress Note ---
<Carmelo Parker - Last Filed: 02/17/17 09:05> Date of Encounter: 02/17/17 Time of Encounter: 09:05 Assessment and Plan (1) Shock Current Visit: Yes Status: Resolved likely multifactorial in nature in setting of septic shock with group A strep bacteremia, hemorrhagic/hypovolemic shock, complicated by cardiomyopathy with EF 20-25% EGD from 02/08/17 showed 4cm bleeding duodenal ulcer, had clip placed and injection with epinephrine. repeat EGD on 02/15 showed same bleeding duodenal ulcer, which was cauterized. repeat EGD on 02/15 showed no bleeding. in total, patient received 16 units PRBCs, 5 units of plasma, 2 units platelets. Plan: will monitor H/H q6H, transfuse blood as needed protonix drip appreciate GI recommendations. appreciate surgery recs. continue with zosyn. will get bleeding scan today. (2) Sepsis Current Visit: Yes Status: Acute Septic shock likely secondary to cellulitis on lower extremities. CT RLE showed severe diffuse b/l LE Subcu fat stranding and skin thickening, no drainable fluid collection, no osseous abnormality, no gas. CT left lower extremity showed no osseous abnormality, no focal gas. Blood cultures showed group A strep, repeat blood cultures negative. wound cultures showed providencia rettgeri, group A strep, staph aureus repeat blood cultures showed no growth. Plan: continue zosyn. duration depends on clinical course. Qualifiers: Sepsis type: sepsis due to unspecified organism Qualified Code(s): A41.9 - Sepsis, unspecified organism (3) Anemia Current Visit: Yes Status: Acute plan as #1 above Qualifiers: Anemia type: iron deficiency Iron deficiency anemia type: chronic blood loss Qualified Code(s): D50.0 - Iron deficiency anemia secondary to blood loss (chronic) (4) Acute respiratory failure with hypoxia and hypercapnia Current Visit: Yes Status: Acute patient was re-intubated yesterday secondary to hypoxia, SOB, and fluid overload in setting of blood transfusions and low EF continue with mechanical ventilation. (5) SAGE (acute kidney injury) Current Visit: Yes Status: Acute Cr today stable Etiology likely pre-renal azotemia in setting of sepsis and cardiomyopathy. Plan: appreciate nephrology recs will monitor urine output renally dose meds, avoid nephrotoxic agents. (6) Cardiomyopathy Current Visit: Yes Status: Acute Echo from 02/06/17 showed LVEF 20-25%, severe global LV systolic dysfunction, mild concentric LVH, severely dilated Left atrium, no pulmonary HTN, severely dialted right atrium, diastolic dysfunction. he has no prior echo to compare, but had a stress test in 2009 with gated EF 58% elevated troponin levels, trended down, likely secondary to sepsis but ischemic cause cannot be ruled out. patient was evaluated by cardio, they recommend [facility] during stay to evaluate for possible ischemic cardiomyopathy if clinical course allows. Cardiology has Recommend medical management for now. according to tele, he has multiple episodes of ectopy plan: continue amiodarone gtt Qualifiers: Cardiomyopathy type: unspecified Qualified Code(s): I42.9 - Cardiomyopathy , unspecified (7) Pacemaker Current Visit: Yes Status: Acute patient has dual chamber pacemaker in place, last interrogated in 2014. (8) Acute systolic heart failure Current Visit: Yes Status: Acute BNP 2958 Echo showed EF 20-25% with severe global LV systolic dysfunction. Upon initial presentation, he was fluid overloaded. initial CXR showed trace pleural effusions. plan: continue lasix 40mg BID, patient is fluid overloaded. will monitor. strict I/O, daily weights. (9) A-fib Current Visit: Yes Status: Chronic per cardio records, patient was unaware of Afib, but he had Afib on his previous device checks. hold BB due to hypotension. CHAds/vasc: 6 (age, CHF, HTN, CAD, DM) no anticoagulation at this time due to GI bleed. Qualifiers: Atrial fibrillation type: chronic Qualified Code(s): I48.2 - Chronic atrial fibrillation (10) CAD (coronary artery disease) Current Visit: Yes Status: Chronic per prior notes, patient has hx of 4 stents, this information needs to be verified with family. Qualifiers: Coronary Disease-Associated Artery/Lesion type: [place] artery [place] vs. transplanted heart: [place] heart Associated angina: without angina Qualified Code(s): I25.10 - Atherosclerotic heart disease of [place] coronary artery without angina pectoris (11) Diabetes mellitus Current Visit: Yes Status: Chronic A1C 6.9 continue low dose sliding scale insulin. Qualifiers: Diabetes mellitus type: type 2 Diabetes mellitus complication status: with unspecified complications Diabetes mellitus group home insulin use: without group home use Qualified Code(s): E11.8 - Type 2 diabetes mellitus with unspecified complications (12) DVT prophylaxis Current Visit: Yes Status: Acute cannot do EPCDs because of bilateral lower extremity cellulitis, will hold off for now. cannot do heparin due to GI bleed. Neuro/sedation: sedated on versed. pulm: acute hypoxic respiratory failure, likely multifactorial seondary to shock , cardiomyopathy, volume overload. patient is intubated. CXR shows volume overload. cardio: cardiomyopathy with EF 20-25%. Cardio recommended ischemic eval when stable. Noticed frequent ectopy, continue amiodarone gtt. GI/FLuids/electrolytes: on protonix drip, carafate. S/p EGD yesterday showing no repeat bleeding. fluid overloaded. will continue lasix 40BID renal: SAGE, Cr stable. likely pre-renal in setting of shock/sepsis/ cardiomyopathy. nephro on board. no dialysis indicated at this time. ID: sepsis secondary to bilateral lower extremity cellulitis. wound cultures grew providencia rettgeri, strep pyogenes, staph aureus. appreciate ID recommendations. repeat blood cultures showed no growth. continue zosyn. Heme/onc: shock (hemorrhagic, hypovolemic, cardiogenic), currently requiring levophed. repeat H/H Q6H. recheck lactate. discontinued ASA/heparin Endo: LDSSI. Subjective Principal diagnosis: GI bleed, Sepsis, acute systolic CHF. Interval history: 77 year old male evaluated at bedside. overnight, his Hg was 7.8, so he received another unit of blood. Objective PUL Vital signs: Last Vital Signs Temp 97.9 F 02/17/17 08:00 Pulse 66 02/17/17 08:00 Resp 15 02/17/17 08:00 BP 102/52 02/17/17 08:00 Pulse Ox 97 02/17/17 08:00 General appearance: other (intubated, sedated. ) ENT: oropharynx dry Neck: supple, no JVD Auscultation: bilateral: clear Cardiovascular: PVC's noted Gastrointestinal: normoactive bowel sounds Integumentary: cellulitis (bilateral lower extremity cellulitis.) Extremities: other (bilateral upper extremity edema, bilateral +2 lower extremity edema. right second toe appears to be coming off. ) unable to assess due to mental status (patient is sedated on versed. ) Ventilator Settings Ventilator Settings: Ventilator Settings, Last 8 Hours Ventilator Mode CPAP Ventilator Mode CPAP Ventilator Mode VC+ Ventilator Mode VC+ Ventilator Mode VC+ Ventilator Mode VC+ Ventilator Mode VC+ Ventilator Mode VC+ Ventilator Mode VC+ Ventilator Mode VC+ Ventilator Mode VC+ Ventilator Tidal Volume 550 Setting Ventilator Tidal Volume 550 Setting Ventilator Tidal Volume 550 Setting Ventilator Tidal Volume 550 Setting Ventilator Tidal Volume 550 Setting Ventilator Tidal Volume 550 Setting Ventilator Tidal Volume 550 Setting Ventilator Tidal Volume 550 Setting Ventilator Tidal Volume 550 Setting Ventilator Respiratory Rate 12 Setting Ventilator Respiratory Rate 12 Setting Ventilator Respiratory Rate 12 Setting Ventilator Respiratory Rate 12 Setting Ventilator Respiratory Rate 12 Setting Ventilator Respiratory Rate 12 Setting Ventilator Respiratory Rate 12 Setting Ventilator Respiratory Rate 12 Setting Ventilator Respiratory Rate 12 Setting Actual Respiratory Rate 15 Actual Respiratory Rate 21 Actual Respiratory Rate 14 Actual Respiratory Rate 12 Actual Respiratory Rate 12 Actual Respiratory Rate 14 Actual Respiratory Rate 12 Actual Respiratory Rate 12 Actual Respiratory Rate 14 Actual Respiratory Rate 12 Positive End Expiratory 5 Pressure Positive End Expiratory 5 Pressure Positive End Expiratory 5 Pressure Positive End Expiratory 5 Pressure Positive End Expiratory 5 Pressure Positive End Expiratory 5 Pressure Positive End Expiratory 5 Pressure Positive End Expiratory 5 Pressure Positive End Expiratory 5 Pressure Positive End Expiratory 5 Pressure Positive End Expiratory 5 Pressure Peak Inspiratory Airway 15 Pressure Peak Inspiratory Airway 16 Pressure Peak Inspiratory Airway 26 Pressure Peak Inspiratory Airway 25 Pressure Peak Inspiratory Airway 24 Pressure Peak Inspiratory Airway 24 Pressure Peak Inspiratory Airway 23 Pressure Peak Inspiratory Airway 36 Pressure Peak Inspiratory Airway 24 Pressure Peak Inspiratory Airway 23 Pressure Results - Laboratory Findings CBC and BMP: 02/17/17 03:40 02/17/17 03:40 ABG ABG pH 7.40 pH Units (7.32-7.45) 02/17/17 04:40 ABG pCO2 46 mmHg (35-45) H 02/17/17 04:40 ABG pO2 92 mmHg (85-104) 02/17/17 04:40 ABG O2 Saturation 97 % (95-98) 02/17/17 04:40 PT/INR, D-dimer PT 16.3 Seconds (9.4-12.1) H 02/16/17 01:38 Abnormal lab findings: Abnormal lab results WBC 16.1 K/mcL (4.3-11.1) H 02/17/17 03:40 RBC 2.69 M/mcL (4.19-5.50) L 02/17/17 03:40 Hgb 7.8 g/dL (12.9-16.9) L 02/17/17 03:40 Hct 23.4 % (37.5-50.1) L 02/17/17 03:40 RDW 17.0 % (11.5-14.5) H 02/17/17 03:40 Plt Count 133 K/mcL (140-400) L 02/17/17 03:40 Metamyelocytes % 2.0 % (0) H 02/12/17 03:00 Myelocytes % 2.0 % (0) H 02/10/17 07:15 Promyelocytes % 2.0 % (0) H 02/09/17 16:16 Neutrophils # 13.1 K/mcL (1.6-8.9) H 02/17/17 03:40 Nucleated RBCs/100 WBC 0.2 /100 WBC (0) H 02/16/17 17:45 Reactive Lymphocytes Present (Not Present) A 02/13/17 03:00 Platelet Estimate Slight Decrease (Normal) L 02/13/17 03:00 Large Platelets Present (Not Present) A 02/13/17 03:00 Polychromasia 1+ (Not Present) A 02/13/17 03:00 Hypochromasia Present (Not Present) A 02/10/17 03:10 Poikilocytosis 1+ (Not Present) A 02/11/17 05:25 Anisocytosis 1+ (Not Present) A 02/13/17 03:00 Microcytosis Present (Not Present) A 02/12/17 03:00 Macrocytosis Present (Not Present) A 02/12/17 03:00 Target Cells 1+ (Not Present) A 02/13/17 03:00 ESR 61 mm/hr (0-10) H 02/15/17 16:45 PT 16.3 Seconds (9.4-12.1) H 02/16/17 01:38 APTT 40.8 Seconds (26.0-36.0) H 02/08/17 00:45 ABG pCO2 46 mmHg (35-45) H 02/17/17 04:40 ABG HCO3 28.5 mEQ/L (21-27) H 02/17/17 04:40 ABG Total CO2 29.9 mEq/L (20-26) H 02/17/17 04:40 ABG Base Excess 3.3 mEq/L (-2.0 to 3.0) H 02/17/17 04:40 Sodium 147 mEq/L (136-145) H 02/17/17 03:40 Potassium 3.0 mEq/L (3.5-4.5) L 02/17/17 03:40 Chloride 115 mEq/L (98-109) H 02/17/17 03:40 BUN 56 mg/dL (8-26) H 02/17/17 03:40 Creatinine 1.38 mg/dL (0.72-1.25) H 02/17/17 03:40 Est GFR (Non-Af Amer) 50 (> 60) L 02/17/17 03:40 BUN/Creatinine Ratio 41 (6-26) H 02/17/17 03:40 Glucose 119 mg/dL (70-99) H 02/17/17 03:40 POC Glucose 151 (58-89) H 02/16/17 23:39 Hemoglobin A1c 6.9 % (-5.6) H 02/06/17 06:18 Calculated Osmolality 321 (280-300) H 02/17/17 03:40 Calcium 7.9 mg/dL (8.6-10.8) L 02/17/17 03:40 Iron 54 mcg/dL (65-175) L 02/08/17 06:39 Transferrin 146 mg/dL (174-364) L 02/08/17 06:39 Ferritin 808 ng/ml (22-275) H 02/08/17 06:39 Total Bilirubin 4.3 mg/dL (0.2-1.2) H 02/16/17 01:38 Direct Bilirubin 3.2 mg/dL (0.0-0.5) H 02/16/17 01:38 AST 66 Units/L (5-34) H 02/16/17 01:38 Troponin I 0.24 ng/mL (0-0.03) H* 02/06/17 18:39 C-Reactive Protein 84 mg/L (Less than 5) H 02/15/17 16:45 B-Natriuretic Peptide 2958 pg/mL (0-100) H 02/05/17 23:05 Serum Total Protein 4.0 g/dL (6.0-8.3) L D 02/16/17 01:38 Total Protein (PEP) 5.10 g/dL (6.00-8.30) L 02/08/17 06:39 Albumin 1.2 g/dL (3.5-5.0) L 02/16/17 01:38 Albumin (PEP) 2.16 g/dL (3.75-5.01) L 02/08/17 06:39 Albumin/Globulin Ratio 0.4 (1.1-2.2) L 02/16/17 01:38 Oyyeo-4-Xersyhrkp 0.53 g/dL (0.19-0.46) H 02/08/17 06:39 HDL Cholesterol 16 mg/dL (40-59) L 02/06/17 06:18 Cholesterol/HDL Ratio 6.7 (0-4.9) H 02/06/17 06:18 Vitamin B12 1850 pg/mL (213-816) H 02/08/17 06:39 25-OH Vitamin D Total 15 ng/mL (30-80) L 02/08/17 06:39 Folate 6.4 ng/mL (7.0-31.4) L 02/08/17 06:39 Urine Clarity Cloudy (Clear) A 02/11/17 08:54 Urine Blood Moderate (Negative) H 02/11/17 08:54 Urine Bilirubin Small (Negative) H 02/11/17 08:54 Ur Leukocyte Esterase Trace (Negative) H 02/11/17 08:54 Ur Squamous Epith Cells Moderate per lpf (None-Few) H 02/11/17 08:54 Ur Culture Indicated? YES (NO) A 02/11/17 08:54 Microalb/Creat Ratio 65 (0-30) H 02/07/17 15:26 Protein/Creatinin Ratio 0.41 mg/mg (0-0.20) H 02/07/17 15:26 Urine Total Protein 65 mg/dL (1-14) H 02/07/17 15:26 Streptococcus sp PCR DETECTED (Not Detect) A 02/05/17 23:06 Group A Strep DNA DETECTED (Not Detect) A 02/05/17 23:06 - Microbiology Findings Microbiology Findings: Microbiology, Last 48 Hours 02/11/17 11:00 Blood Culture - Final Central Venous Catheter No growth. 02/11/17 09:28 Blood Culture - Final Peripheral Venipuncture No growth. 02/11/17 09:21 Blood Culture - Final Peripheral Venipuncture No growth. - Clinical Findings Intake & Output: Intake & Output 02/16/17 02/17/17 02/17/17 23:59 07:59 15:59 Intake Total 470 / 470 890 / 890 304 / 304 Output Total 400 / 400 1100 / 1100 Balance 70 / 70 -210 / -210 304 / 304 Consult Discharge Plan - Plan Referrals: Yasmani Baker MD [Non-Partnered Physician] - (OFFICE WILL NOT MAKE A FOLLOW UP APPOINTMENT FOR THIS PATIENT UNITL WE HAVE A DISCHARGE ORDER) <Mynor Stover M - Last Filed: 02/17/17 12:48> Date of Encounter: 02/17/17 Objective PUL Vital signs: Last Vital Signs Temp 97.9 F 02/17/17 11:04 Pulse 65 02/17/17 12:00 Resp 13 02/17/17 12:00 BP 115/53 02/17/17 12:00 Pulse Ox 100 02/17/17 12:00 Ventilator Settings Ventilator Settings: Ventilator Settings, Last 8 Hours Ventilator Mode VC+ Ventilator Mode VC+ Ventilator Mode VC+ Ventilator Mode VC+ Ventilator Mode CPAP Ventilator Mode CPAP Ventilator Mode CPAP Ventilator Mode VC+ Ventilator Mode VC+ Ventilator Mode VC+ Ventilator Tidal Volume 550 Setting Ventilator Tidal Volume 550 Setting Ventilator Tidal Volume 550 Setting Ventilator Tidal Volume 550 Setting Ventilator Tidal Volume 550 Setting Ventilator Tidal Volume 550 Setting Ventilator Tidal Volume 550 Setting Ventilator Respiratory Rate 12 Setting Ventilator Respiratory Rate 12 Setting Ventilator Respiratory Rate 12 Setting Ventilator Respiratory Rate 12 Setting Ventilator Respiratory Rate 12 Setting Ventilator Respiratory Rate 12 Setting Ventilator Respiratory Rate 12 Setting Actual Respiratory Rate 13 Actual Respiratory Rate 12 Actual Respiratory Rate 15 Actual Respiratory Rate 16 Actual Respiratory Rate 26 Actual Respiratory Rate 15 Actual Respiratory Rate 21 Actual Respiratory Rate 14 Actual Respiratory Rate 12 Actual Respiratory Rate 12 Positive End Expiratory 5 Pressure Positive End Expiratory 5 Pressure Positive End Expiratory 5 Pressure Positive End Expiratory 5 Pressure Positive End Expiratory 5 Pressure Positive End Expiratory 5 Pressure Positive End Expiratory 5 Pressure Positive End Expiratory 5 Pressure Positive End Expiratory 5 Pressure Positive End Expiratory 5 Pressure Peak Inspiratory Airway 25 Pressure Peak Inspiratory Airway 24 Pressure Peak Inspiratory Airway 23 Pressure Peak Inspiratory Airway 23 Pressure Peak Inspiratory Airway 17 Pressure Peak Inspiratory Airway 15 Pressure Peak Inspiratory Airway 16 Pressure Peak Inspiratory Airway 26 Pressure Peak Inspiratory Airway 25 Pressure Peak Inspiratory Airway 24 Pressure Results - Laboratory Findings CBC and BMP: 02/17/17 10:45 02/17/17 10:45 ABG ABG pH 7.40 pH Units (7.32-7.45) 02/17/17 04:40 ABG pCO2 46 mmHg (35-45) H 02/17/17 04:40 ABG pO2 92 mmHg (85-104) 02/17/17 04:40 ABG O2 Saturation 97 % (95-98) 02/17/17 04:40 PT/INR, D-dimer PT 16.3 Seconds (9.4-12.1) H 02/16/17 01:38 Abnormal lab findings: Abnormal lab results WBC 16.2 K/mcL (4.3-11.1) H 02/17/17 10:45 RBC 2.97 M/mcL (4.19-5.50) L 02/17/17 10:45 Hgb 8.6 g/dL (12.9-16.9) L 02/17/17 10:45 Hct 26.2 % (37.5-50.1) L 02/17/17 10:45 RDW 17.1 % (11.5-14.5) H 02/17/17 10:45 Plt Count 132 K/mcL (140-400) L 02/17/17 10:45 Metamyelocytes % 2.0 % (0) H 02/12/17 03:00 Myelocytes % 2.0 % (0) H 02/10/17 07:15 Promyelocytes % 2.0 % (0) H 02/09/17 16:16 Neutrophils # 13.1 K/mcL (1.6-8.9) H 02/17/17 10:45 Nucleated RBCs/100 WBC 0.2 /100 WBC (0) H 02/16/17 17:45 Reactive Lymphocytes Present (Not Present) A 02/13/17 03:00 Platelet Estimate Slight Decrease (Normal) L 02/13/17 03:00 Large Platelets Present (Not Present) A 02/13/17 03:00 Polychromasia 1+ (Not Present) A 02/13/17 03:00 Hypochromasia Present (Not Present) A 02/10/17 03:10 Poikilocytosis 1+ (Not Present) A 02/11/17 05:25 Anisocytosis 1+ (Not Present) A 02/13/17 03:00 Microcytosis Present (Not Present) A 02/12/17 03:00 Macrocytosis Present (Not Present) A 02/12/17 03:00 Target Cells 1+ (Not Present) A 02/13/17 03:00 ESR 61 mm/hr (0-10) H 02/15/17 16:45 PT 16.3 Seconds (9.4-12.1) H 02/16/17 01:38 APTT 40.8 Seconds (26.0-36.0) H 02/08/17 00:45 ABG pCO2 46 mmHg (35-45) H 02/17/17 04:40 ABG HCO3 28.5 mEQ/L (21-27) H 02/17/17 04:40 ABG Total CO2 29.9 mEq/L (20-26) H 02/17/17 04:40 ABG Base Excess 3.3 mEq/L (-2.0 to 3.0) H 02/17/17 04:40 Sodium 147 mEq/L (136-145) H 02/17/17 03:40 Potassium 3.2 mEq/L (3.5-4.5) L 02/17/17 10:45 Chloride 115 mEq/L (98-109) H 02/17/17 03:40 BUN 56 mg/dL (8-26) H 02/17/17 03:40 Creatinine 1.38 mg/dL (0.72-1.25) H 02/17/17 03:40 Est GFR (Non-Af Amer) 50 (> 60) L 02/17/17 03:40 BUN/Creatinine Ratio 41 (6-26) H 02/17/17 03:40 Glucose 119 mg/dL (70-99) H 02/17/17 03:40 POC Glucose 127 (58-89) H 02/17/17 10:45 Hemoglobin A1c 6.9 % (-5.6) H 02/06/17 06:18 Calculated Osmolality 321 (280-300) H 02/17/17 03:40 Calcium 7.9 mg/dL (8.6-10.8) L 02/17/17 03:40 Iron 54 mcg/dL (65-175) L 02/08/17 06:39 Transferrin 146 mg/dL (174-364) L 02/08/17 06:39 Ferritin 808 ng/ml (22-275) H 02/08/17 06:39 Total Bilirubin 4.3 mg/dL (0.2-1.2) H 02/16/17 01:38 Direct Bilirubin 3.2 mg/dL (0.0-0.5) H 02/16/17 01:38 AST 66 Units/L (5-34) H 02/16/17 01:38 Troponin I 0.24 ng/mL (0-0.03) H* 02/06/17 18:39 C-Reactive Protein 84 mg/L (Less than 5) H 02/15/17 16:45 B-Natriuretic Peptide 2958 pg/mL (0-100) H 02/05/17 23:05 Serum Total Protein 4.0 g/dL (6.0-8.3) L D 02/16/17 01:38 Total Protein (PEP) 5.10 g/dL (6.00-8.30) L 02/08/17 06:39 Albumin 1.2 g/dL (3.5-5.0) L 02/16/17 01:38 Albumin (PEP) 2.16 g/dL (3.75-5.01) L 02/08/17 06:39 Albumin/Globulin Ratio 0.4 (1.1-2.2) L 02/16/17 01:38 Wteti-3-Qdjfjutxg 0.53 g/dL (0.19-0.46) H 02/08/17 06:39 HDL Cholesterol 16 mg/dL (40-59) L 02/06/17 06:18 Cholesterol/HDL Ratio 6.7 (0-4.9) H 02/06/17 06:18 Vitamin B12 1850 pg/mL (213-816) H 02/08/17 06:39 25-OH Vitamin D Total 15 ng/mL (30-80) L 02/08/17 06:39 Folate 6.4 ng/mL (7.0-31.4) L 02/08/17 06:39 Urine Clarity Cloudy (Clear) A 02/11/17 08:54 Urine Blood Moderate (Negative) H 02/11/17 08:54 Urine Bilirubin Small (Negative) H 02/11/17 08:54 Ur Leukocyte Esterase Trace (Negative) H 02/11/17 08:54 Ur Squamous Epith Cells Moderate per lpf (None-Few) H 02/11/17 08:54 Ur Culture Indicated? YES (NO) A 02/11/17 08:54 Microalb/Creat Ratio 65 (0-30) H 02/07/17 15:26 Protein/Creatinin Ratio 0.41 mg/mg (0-0.20) H 02/07/17 15:26 Urine Total Protein 65 mg/dL (1-14) H 02/07/17 15:26 Streptococcus sp PCR DETECTED (Not Detect) A 02/05/17 23:06 Group A Strep DNA DETECTED (Not Detect) A 02/05/17 23:06 - Microbiology Findings Microbiology Findings: Microbiology, Last 48 Hours 02/11/17 11:00 Blood Culture - Final Central Venous Catheter No growth. 02/11/17 09:28 Blood Culture - Final Peripheral Venipuncture No growth. 02/11/17 09:21 Blood Culture - Final Peripheral Venipuncture No growth. - Clinical Findings Intake & Output: Intake & Output 02/16/17 02/17/17 02/17/17 23:59 07:59 15:59 Intake Total 470 / 470 890 / 890 514 / 514 Output Total 400 / 400 1100 / 1100 225 / 225 Balance 70 / 70 -210 / -210 289 / 289 - Attending Attestation I examined this patient and my medical decision-making was reviewed with the SWING DRIVER/PA/Advanced Practice Nurse/Resident Physician. I agree with the documented findings, disposition and treatment plan as described except to the extent set forth below. Patient seen and examined. Labs, radiology, chart personally reviewed. Agree with resident's history and physical, assessment, plan with following comments: AGILE TESTER: Patient sedated, but follows commands, Pulmonary: Acceptable oxygenation and ventilation. Due to overall clinical status and still evidence of bleeding, there is no plan for extubation and patient remain on spontaneous breathing trial at this time. Cardiovascular: Relatively stable GI: Nutrition per dietary and GI prophylaxis per routine Heme: DVT prophylaxis per routine. Continue monitor H&H and bleeding scan ID: Continue antibiotics and plan to de-escalation Renal; urine out put and renal funtion reviewed Endorcine: blood glucose is monitored Lines: all lines checked and no evidence of infections Skin: skin care to prevent pressure ulcers per nursing routine care I still feel overall prognosis is poor and appreciate palliative care input.
--- NOTE | 2017-02-17 10:39 | Nephrology Progress Note ---
<Lucretia Cadena - Last Filed: 02/17/17 10:40> Date of Encounter: 02/17/17 Time of Encounter: 10:36 - Assessment and Plan (1) SAGE (acute kidney injury) Status: Acute Kidney function is slightly worse today, most likely from profound GI bleed resulting in hhypoperfusion. Excellent UOP 1000ml No acute indication for HAM MARKER at this time Continue to avoid nephrotoxins (2) Anemia Status: Acute Hgb 7.8 S/P profound GI bleed Transfuse per parameters Qualifiers: Anemia type: iron deficiency Iron deficiency anemia type: chronic blood loss Qualified Code(s): D50.0 - Iron deficiency anemia secondary to blood loss (chronic) (3) Severe sepsis Status: Acute per primary team WBCs down to 16.1 Subjective Principal diagnosis: GI bleed, Sepsis, acute systolic CHF. Interval history: Patient seen and examined. Currently on ventilator and sedated. Objective - Vital Signs Vital signs: Vital Signs Temp Pulse Resp BP Pulse Ox 02/17/17 09:48 21 99/38 98 02/17/17 09:00 60 26 110/55 98 02/17/17 08:00 97.9 F 66 15 102/52 97 02/17/17 07:33 97.9 F 75 15 107/56 97 02/17/17 07:31 24 99/38 97 02/17/17 07:27 97.7 F 02/17/17 06:16 16 101/51 98 02/17/17 06:00 64 12 99/49 95 02/17/17 05:18 98.0 F 61 16 106/52 99 02/17/17 05:03 97.9 F 12 100/48 02/17/17 05:00 97.9 F 65 12 106/50 98 02/17/17 04:18 14 101/48 97 02/17/17 04:00 98.0 F 65 12 103/50 97 02/17/17 03:00 64 14 106/52 94 02/17/17 02:14 15 115/44 97 02/17/17 02:00 68 14 127/51 99 02/17/17 01:00 65 14 110/45 97 02/17/17 00:15 15 97 02/17/17 00:00 58 13 104/44 95 02/16/17 23:49 98.2 F 02/16/17 23:00 70 12 144/65 98 02/16/17 22:08 19 136/60 97 02/16/17 22:00 69 17 129/60 98 02/16/17 21:00 73 16 148/67 98 02/16/17 20:00 63 14 145/56 90 02/16/17 19:58 98.0 F 02/16/17 19:49 16 133/68 90 02/16/17 19:00 64 16 136/56 90 02/16/17 18:26 14 111/40 99 02/16/17 18:00 70 14 111/40 97 02/16/17 16:59 66 17 142/63 97 02/16/17 16:00 69 14 111/47 99 02/16/17 15:53 97.5 F L 02/16/17 15:23 13 111/40 99 02/16/17 14:53 71 14 108/57 100 02/16/17 14:00 61 14 112/59 99 02/16/17 13:00 77 14 106/58 99 02/16/17 12:00 97.6 F 77 14 130/66 99 02/16/17 11:46 14 97 02/16/17 11:17 97.6 F 02/16/17 11:00 63 14 96/52 98 Intake and Output 02/16/17 02/17/17 02/17/17 23:59 07:59 15:59 Intake Total 470 / 470 890 / 890 404 / 404 Output Total 400 / 400 1100 / 1100 Balance 70 / 70 -210 / -210 404 / 404 Intake: IV Fluids 470 / 470 590 / 590 404 / 404 Amiodarone Drip Premix 200 / 200 200 / 200 360mg/200mL 360 mg In 200 ml @ 0.5 MG/MIN 16.667 mls/hr IVC CONT [facility] Rx#: [id number] Versed 50 MG In 0.9 % 90 / 90 0 / 0 Sodium Chloride 90 ML @ 2 MG/HR 4 mls/hr IVC CONT [facility] Rx#:[id number] Levophed 4 MG In Dextrose 70 / 70 5% 250 ML @ 4 MCG/MIN 15 mls/hr IVC CONT [facility] Rx#: [id number] Protonix 40 MG In 0.9 % 100 / 100 200 / 200 Sodium Chloride (Mini-Bag +) 100 ML @ 20 mls/hr IVC .Q5H [facility] Rx#: [id number] Magnesium Sulfate 2 GM In 104 / 104 Dextrose 5% 100 ML @ 50 mls/hr IVPB Q6H PRN Rx#: [id number] Zosyn 3.375 GM In 100 / 100 100 / 100 100 / 100 Dextrose 5% (Minibag+) 100 ML 100 ML @ 25 mls/hr IVPB Q8H [facility] Rx#: [id number] Potassium Chloride 20 mEq 200 / 200 /100 mL 40 meq In 200 ml @ 100 mls/hr IVPB Q1H PRN Rx#:[id number] Blood Product 300 / 300 Rbcs Leuko Poor As-1 300 / 300 Unit [id number] Output: Rectal Tube 200 / 200 100 / 100 Catheter 150 / 150 1000 / 1000 Gastric Drainage 50 / 50 0 / 0 Other: Blood Glucose* 151 - General Appearance General appearance: Present: obese, chronically ill EENT: Present: ATNC Neck: Present: supple Respiratory: Present: clear (on ventilator) Cardiology: Present: edema (BLL edema), normal S1, normal S2 Gastrointestinal: Present: no tenderness, no guarding, obese Integumentary: Present: warm and dry - Lab 02/17/17 03:40 02/17/17 03:40 Most recent lab results ABG pH 7.40 pH Units (7.32-7.45) 02/17/17 04:40 ABG pCO2 46 mmHg (35-45) H 02/17/17 04:40 ABG pO2 92 mmHg (85-104) 02/17/17 04:40 ABG HCO3 28.5 mEQ/L (21-27) H 02/17/17 04:40 ABG O2 Saturation 97 % (95-98) 02/17/17 04:40 Calcium 7.9 mg/dL (8.6-10.8) L 02/17/17 03:40 Phosphorus 3.5 mg/dL (2.3-4.7) 02/17/17 03:40 Magnesium 1.9 mg/dL (1.6-2.6) 02/17/17 03:40 Urine Creatinine 158 mg/dL 02/07/17 15:26 Urine Total Protein 65 mg/dL (1-14) H 02/07/17 15:26 Consult Discharge Plan - Plan Instructions: Ampicillin (By mouth), Furosemide (By mouth), Oxycodone/ Acetaminophen (By mouth), Meropenem (Injection), Heart Failure (DC), Cellulitis (DC), Diabetes Mellitus Type 2 in Adults (DC), Sepsis (DC), Anemia (GEN) Referrals: Yasmani Baker MD [Non-Partnered Physician] - (Patient is going to rehab ([facility]) no PCP appointment needed) Prescriptions: OxyCODONE/APAP 5/325 [Percocet 5/325 MG] 1 each PO Q4HR PRN #20 tablet PRN Reason: MOD TO SEVERE PAIN 4-10 Ampicillin Trihydrate 1,000 mg PO Q4H #12 capsule Furosemide [Lasix] 40 mg PO BID #60 tablet Meropenem-0.9% Sodium Chloride [Meropenem-0.9% NaCl 1 Gram/50] 1 gm IV Q8H #30 piggyback <Alondra Rodriguez - Last Filed: 03/04/17 00:53> Date of Encounter: 02/17/17 - Assessment and Plan (1) SAGE (acute kidney injury) Status: Resolved (2) Acute respiratory failure with hypoxia and hypercapnia Status: Resolved (3) Anemia Status: Acute Qualifiers: Anemia type: iron deficiency Iron deficiency anemia type: chronic blood loss Qualified Code(s): D50.0 - Iron deficiency anemia secondary to blood loss (chronic) (4) Severe sepsis Status: Acute (5) Hypernatremia Status: Acute (6) Hypoalbuminemia Status: Acute Objective - Vital Signs Vital signs: Vital Signs Temp Pulse Resp BP Pulse Ox 03/03/17 16:08 19 117/65 97 03/03/17 16:00 98.2 F 74 18 126/66 95 03/03/17 12:05 97.8 F 79 19 117/65 97 03/03/17 11:44 97.8 F 79 19 117/65 97 03/03/17 10:47 19 97 03/03/17 08:30 75 03/03/17 07:49 97.9 F 75 19 134/64 97 03/03/17 04:06 18 96 Intake and Output 03/03/17 03/03/17 03/04/17 15:59 23:59 07:59 Intake Total 720 / 720 440 / 440 Output Total 0 / 0 1600 / 1600 Balance 720 / 720 -1160 / -1160 Intake: IV Fluids 300 / 300 200 / 200 Ampicillin 1,000 MG In 0. 200 / 200 100 / 100 9 % Sodium Chloride (Mini -Bag +) 100 ML @ 200 mls/ hr IVPB Q4HR [facility] Rx#: [id number] Merrem 1,000 MG In 0.9 % 100 / 100 100 / 100 Sodium Chloride (Mini-Bag +) 100 ML @ 200 mls/hr IVPB Q8HR [facility] Rx#: [id number] Oral 420 / 420 240 / 240 Output: Urine 800 / 800 Urethral (Patel) 800 / 800 Straight Cath 0 / 0 Catheter 800 / 800 Other: Meal Breakfast Percent of Meal Consumed 100% Blood Glucose* 132 - Lab 03/02/17 05:00 03/03/17 10:00 Most recent lab results ABG pH 7.41 pH Units (7.32-7.45) 02/20/17 04:30 ABG pCO2 45 mmHg (35-45) 02/20/17 04:30 ABG pO2 75 mmHg (85-104) L 02/20/17 04:30 ABG HCO3 28.5 mEQ/L (21-27) H 02/20/17 04:30 ABG O2 Saturation 95 % (95-98) 02/20/17 04:30 Calcium 8.1 mg/dL (8.6-10.8) L 03/02/17 05:00 Phosphorus 3.2 mg/dL (2.3-4.7) 02/28/17 00:30 Magnesium 1.5 mg/dL (1.6-2.6) L 03/03/17 10:00 Urine Creatinine 158 mg/dL 02/07/17 15:26 Urine Total Protein 65 mg/dL (1-14) H 02/07/17 15:26 - Attending Attestation I examined this patient and my medical decision-making was reviewed with the CAPACITY MANAGER/PA/Advanced Practice Nurse/Resident Physician. I agree with the documented findings, disposition and treatment plan as described except to the extent set forth below. Pt seen and examined reintubated and overnight events noted with bleeding event requiring endoscopy. Will monitor SCr closely for worsening due to hypoperfusion. UOP remains quite good. Hgb stable. No acute indication for HAM MARKER at this time.
[2017-02-17 11:02] LABS: Basophils # 0.1 K/mcL (0.0-0.2); Basophils % 0.6 %; Eosinophils # 0.4 K/mcL (0.0-0.6); Eosinophils % 2.7 %; Hematocrit 26.2 % (37.5-50.1); Hemoglobin 8.6 g/dL (12.9-16.9); Immature Granulocytes % 1.2 % (0-4); Lymphocytes # 1.3 K/mcL (0.6-4.6); Lymphocytes % 8.1 %; Mean Corpuscular HGB Conc 32.8 g/dL (31.6-35.5); Mean Corpuscular Volume 88.2 fL (83.0-100.0); Mean Platelet Volume 10.1 fL (9.4-12.4); Monocytes # 1.1 K/mcL (0.0-1.3); Monocytes % 6.8 %; Neutrophils # 13.1 K/mcL (1.6-8.9); Platelet Count 132 K/mcL (140-400); Red Blood Count 2.97 M/mcL (4.19-5.50); Red Cell Distribution Width 17.1 % (11.5-14.5); Segmented Neutrophils % 80.6 %
[2017-02-17 11:10] LABS: Magnesium 2.1 mg/dL (1.6-2.6); Potassium 3.2 mEq/L (3.5-4.5)
--- NOTE | 2017-02-17 13:11 | Infectious Disease Progress No ---
Date of Encounter: 02/17/17 Time of Encounter: 10:00 - Assessment and Plan (1) Shock Current Visit: Yes Status: Resolved Likely hemorrhagic. Patient was re-started back on vasopressors to maintain adequate perfusion, but these have been discontinued overnight. Secondary to GI bleed, which appears to be controlled at this time. Management per the primary and GI teams.. (2) Severe sepsis Current Visit: Yes Status: Acute The patient had two SIRS criteria plus SAGE, lactic acidosis, and bandemia. Likely secondary to bacteremia and RLE cellulitis. Improved. WBC remains elevated, but bandemia has resolved. It appears that his WBC is starting to trend down. Tachycardia has improved. Lactic acid level is back to normal. Blood cultures drawn 02/05/17 are positive 2/2 sets for GAS. Repeat blood cultures x 2 sets drawn 02/08/17 are negative. Additional blood cultures drawn 02/11/17 (2 peripheral and 1 from CVC) are NGTD as well. (3) Leukocytosis Current Visit: Yes Status: Acute The patient continues to have an elevated WBC despite clinical improvement, but this likely reactive from acute GI hemorrhage. The patient has been afebrile and tachycardia has resolved. Peripheral smear noted. Check procalcitonin--> pending. Qualifiers: Leukocytosis type: unspecified Qualified Code(s): D72.829 - Elevated white blood cell count, unspecified (4) Bacteremia Current Visit: Yes Status: Acute Causative organism GAS. Source likely RLE cellulitis/wound infection. Blood cultures drawn 02/05/17 are positive 2/2 sets for GAS. Repeat blood cultures drawn 02/07 x 1 set and 02/08 x 2 sets are negative. Additional blood cultures drawn 02/11/17 are negative x 3 sets (2 peripheral and 1 from CVC). Complicated due to the presence of hardware and pacemaker. No endocarditis stigmata noted on exam. Low index of suspicion for IE. TTE negative for valvular vegetations. Continue Zosyn 3.375 grams IV Q8H (day 10 since the first set of negative blood cultures). Continue probiotic. Duration of treatment depends on the clinical picture. Recommend completing a 14 day course of Zosyn and then discontinuing. No further recommendations from ID. Will sign off. Please re-consult if needed. (5) Cellulitis Current Visit: Yes Status: Acute Although the patient does have erythema to the BLE, I believe that the LLE erythema is more likely secondary to venous stasis dermatitis rather than an acute infection. Likely secondary to venous stasis ulcers. Wound culture of the RLE ulcer positive for Providencia, GAS, and MSSA. CT of the BLE shows evidence of skin thickening of the BLE consistent with cellulitis vs. lymphedema. 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 There is no abscess or evidence of osteomyelitis. Podiatry has been consulted and is following. ESR and CRP initially elevated. Repeat levels improved. Continue antibiotics as above. Clinically, the cellulitis has improved. Wound care as outline by the podiatry team. Duration of treatment depends on the clinical picture. Monitor renal function and dose-adjust antibiotics. Qualifiers: Site of cellulitis: extremity Site of cellulitis of extremity: lower extremity Laterality: right Qualified Code(s): L03.115 - Cellulitis of right lower limb (6) SAGE (acute kidney injury) Current Visit: Yes Status: Acute Etiology unclear: SAGE on CKD vs. sepsis vs. other. Serum creatinine stable. Nephrology consulted and following. Management per the nephrology and primary teams. Dose-adjust antibiotics based on creatinine clearance. (7) Lactic acidosis Current Visit: Yes Status: Resolved Likely secondary to sepsis. Resolved. (8) Hematemesis with nausea Current Visit: Yes Status: Resolved Secondary to GI bleed. Status post EGD 02/08/[address] Phan. Large ulcer noted during EGD that required epinephrine and placement of clip. Repeat bleeding noted 02/15/17 with Hgb down to 5.5. Status post emergent EGD at the bedside that showed re-bleeding of the duodenal ulcer. Cauterization of the ulcer was done and it appears the bleeding has resolved. Further management per the GI team. (9) Back pain Current Visit: Yes Status: Resolved Secondary to DDD. CT of the C-spine and L-spine completed. Results reviewed. No infectious etiology identified. Qualifiers: Back pain location: low back pain Chronicity: chronic Back pain laterality: midline Sciatica presence: without sciatica Qualified Code(s): M54.5 - Low back pain; G89.29 - Other chronic pain (10) Elevated troponin level Current Visit: Yes Status: Acute Likely demand ischemia secondary to sepsis. Cardiology consulted and following. (11) Acute respiratory failure with hypoxia and hypercapnia Current Visit: Yes Status: Acute Likely secondary to fluid overload from large amount of IVF and blood products on top of CHF. Extubated 02/14/17, but required re-intubation 02/15/17. CXR shows mild pulmondary edema and left basilar infiltrate/atelectasis and probable pleural effusion. Pulmonology team consulted and following. (12) GI bleeding Current Visit: Yes Status: Acute Large duodenal ulcer noted requiring epi and hemostasis clip. Re-bleeding noted 02/15/17 requiring repeat EGD. Management per the GI team. 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 Hgb this morning down to 7.6, improved to 8.4 after 1 unit PRBCs. Management per the primary team. Qualifiers: Anemia type: iron deficiency Iron deficiency anemia type: chronic blood loss Qualified Code(s): D50.0 - Iron deficiency anemia secondary to blood loss (chronic) (15) Thrombocytopenia Current Visit: Yes Status: Resolved Platelets up to 132 this morning. Etiology unclear. Continue to trend and monitor closely. (16) A-fib Current Visit: Yes Status: Chronic Qualifiers: Atrial fibrillation type: chronic Qualified Code(s): I48.2 - Chronic atrial fibrillation (17) CAD (coronary artery disease) Current Visit: Yes Status: Chronic Qualifiers: Coronary Disease-Associated Artery/Lesion type: [place] artery [place] vs. transplanted heart: [place] heart Associated angina: without angina Qualified Code(s): I25.10 - Atherosclerotic heart disease of [place] coronary artery without angina pectoris (18) CHF (congestive heart failure) Current Visit: Yes Status: Acute ECHO shows EF 20-25%. Cardiology consulted and following. Qualifiers: Congestive heart failure type: unspecified congestive heart failure type Congestive heart failure chronicity: chronic Qualified Code(s): I50.9 - Heart failure, unspecified (19) Diabetes mellitus Current Visit: Yes Status: Chronic Recommend aggressive glucose monitoring and control. Management per the primary team's recommendations. Qualifiers: Diabetes mellitus type: type 2 Diabetes mellitus complication status: with unspecified complications Diabetes mellitus termite control technician insulin use: without intermediate use Qualified Code(s): E11.8 - Type 2 diabetes mellitus with unspecified complications - Subjective Interval history: Patient seen and examined. No acute events noted overnight. The patient remains intubated and sedated. Bleeding seems to have slowed down/stopped. 100ml rectal tube output since midnight. Hgb stable this morning. No other ROS attainable from the patient at this time. Vasopressors have been stopped. No new issues per nursing. Infect Dis PN-Objective Data - Labs CBC & Chem 7: 02/17/17 16:35 02/17/17 10:45 Labs: Laboratory Results - last 24 hr 02/15/17 02/16/17 02/16/17 21:50 13:15 13:15 WBC 17.6 H RBC 2.85 L Hgb 8.4 L Hct 24.3 L MCV 85.3 MCH 29.5 MCHC 34.6 RDW 16.6 H Plt Count 121 L MPV 10.7 Immature Gran % 1.7 Seg Neutrophils % 85.9 Lymphocytes % 7.6 Monocytes % 4.6 Eosinophils % 0.1 Basophils % 0.1 Neutrophils # 15.2 H Lymphocytes # 1.3 Monocytes # 0.8 Eosinophils # 0.0 Basophils # 0.0 Nucleated RBCs/100 WBC 0.1 H ABG pH ABG pCO2 ABG pO2 ABG HCO3 ABG Total CO2 ABG O2 Saturation ABG Base Excess Blood Gas Modality Inspired O2 Sodium Potassium Chloride Carbon Dioxide BUN Creatinine Est GFR ( Amer) Est GFR (Non-Af Amer) BUN/Creatinine Ratio Glucose POC Glucose Calculated Osmolality Lactic Acid 0.9 Calcium Ionized Calcium Phosphorus Magnesium Blood Type A POSITIVE Antibody Screen NEGATIVE Crossmatch See Detail 02/16/17 02/16/17 02/16/17 17:45 17:45 17:47 WBC 18.5 H RBC 3.04 L Hgb 8.7 L Hct 26.3 L MCV 86.5 MCH 28.6 MCHC 33.1 RDW 16.9 H Plt Count 134 L MPV 10.3 Immature Gran % 1.5 Seg Neutrophils % 83.1 Lymphocytes % 8.4 Monocytes % 6.7 Eosinophils % 0.1 Basophils % 0.2 Neutrophils # 15.4 H Lymphocytes # 1.6 Monocytes # 1.3 Eosinophils # 0.0 Basophils # 0.0 Nucleated RBCs/100 WBC 0.2 H ABG pH ABG pCO2 ABG pO2 ABG HCO3 ABG Total CO2 ABG O2 Saturation ABG Base Excess Blood Gas Modality Inspired O2 Sodium Potassium Chloride Carbon Dioxide BUN Creatinine Est GFR ( Amer) Est GFR (Non-Af Amer) BUN/Creatinine Ratio Glucose POC Glucose 153 H Calculated Osmolality Lactic Acid 0.8 Calcium Ionized Calcium Phosphorus Magnesium Blood Type Antibody Screen Crossmatch 02/16/17 02/16/17 02/16/17 22:05 22:05 23:39 WBC 18.4 H RBC 3.00 L Hgb 8.6 L Hct 25.8 L MCV 86.0 MCH 28.7 MCHC 33.3 RDW 17.1 H Plt Count 141 MPV 10.1 Immature Gran % 1.3 Seg Neutrophils % 82.4 Lymphocytes % 8.5 Monocytes % 7.2 Eosinophils % 0.3 Basophils % 0.3 Neutrophils # 15.1 H Lymphocytes # 1.6 Monocytes # 1.3 Eosinophils # 0.1 Basophils # 0.1 Nucleated RBCs/100 WBC ABG pH ABG pCO2 ABG pO2 ABG HCO3 ABG Total CO2 ABG O2 Saturation ABG Base Excess Blood Gas Modality Inspired O2 Sodium Potassium Chloride Carbon Dioxide BUN Creatinine Est GFR ( Amer) Est GFR (Non-Af Amer) BUN/Creatinine Ratio Glucose POC Glucose 151 H Calculated Osmolality Lactic Acid 1.0 Calcium Ionized Calcium Phosphorus Magnesium Blood Type Antibody Screen Crossmatch 02/17/17 02/17/17 02/17/17 03:40 03:40 03:40 WBC 16.1 H RBC 2.69 L Hgb 7.8 L Hct 23.4 L MCV 87.0 MCH 29.0 MCHC 33.3 RDW 17.0 H Plt Count 133 L MPV 10.8 Immature Gran % 1.2 Seg Neutrophils % 81.4 Lymphocytes % 9.1 Monocytes % 6.6 Eosinophils % 1.3 Basophils % 0.4 Neutrophils # 13.1 H Lymphocytes # 1.5 Monocytes # 1.1 Eosinophils # 0.2 Basophils # 0.1 Nucleated RBCs/100 WBC ABG pH ABG pCO2 ABG pO2 ABG HCO3 ABG Total CO2 ABG O2 Saturation ABG Base Excess Blood Gas Modality Inspired O2 Sodium 147 H Potassium 3.0 L Chloride 115 H Carbon Dioxide 27 BUN 56 H Creatinine 1.38 H Est GFR ( Amer) > 60 Est GFR (Non-Af Amer) 50 L BUN/Creatinine Ratio 41 H Glucose 119 H POC Glucose Calculated Osmolality 321 H Lactic Acid 1.0 Calcium 7.9 L Ionized Calcium 1.27 Phosphorus 3.5 Magnesium 1.9 Blood Type Antibody Screen Crossmatch 02/17/17 02/17/17 02/17/17 04:40 10:45 10:45 WBC 16.2 H RBC 2.97 L Hgb 8.6 L Hct 26.2 L MCV 88.2 MCH 29.0 MCHC 32.8 RDW 17.1 H Plt Count 132 L MPV 10.1 Immature Gran % 1.2 Seg Neutrophils % 80.6 Lymphocytes % 8.1 Monocytes % 6.8 Eosinophils % 2.7 Basophils % 0.6 Neutrophils # 13.1 H Lymphocytes # 1.3 Monocytes # 1.1 Eosinophils # 0.4 Basophils # 0.1 Nucleated RBCs/100 WBC ABG pH 7.40 ABG pCO2 46 H ABG pO2 92 ABG HCO3 28.5 H ABG Total CO2 29.9 H ABG O2 Saturation 97 ABG Base Excess 3.3 H Blood Gas Modality VC Inspired O2 40 Sodium Potassium 3.2 L Chloride Carbon Dioxide BUN Creatinine Est GFR ( Amer) Est GFR (Non-Af Amer) BUN/Creatinine Ratio Glucose POC Glucose Calculated Osmolality Lactic Acid Calcium Ionized Calcium Phosphorus Magnesium 2.1 Blood Type Antibody Screen Crossmatch 02/17/17 10:45 WBC RBC Hgb Hct MCV MCH MCHC RDW Plt Count MPV Immature Gran % Seg Neutrophils % Lymphocytes % Monocytes % Eosinophils % Basophils % Neutrophils # Lymphocytes # Monocytes # Eosinophils # Basophils # Nucleated RBCs/100 WBC ABG pH ABG pCO2 ABG pO2 ABG HCO3 ABG Total CO2 ABG O2 Saturation ABG Base Excess Blood Gas Modality Inspired O2 Sodium Potassium Chloride Carbon Dioxide BUN Creatinine Est GFR ( Amer) Est GFR (Non-Af Amer) BUN/Creatinine Ratio Glucose POC Glucose 127 H Calculated Osmolality Lactic Acid Calcium Ionized Calcium Phosphorus Magnesium Blood Type Antibody Screen Crossmatch Cultures: Cultures 02/11/17 11:00 Blood Culture - Final Central Venous Catheter No growth. 02/11/17 09:28 Blood Culture - Final Peripheral Venipuncture No growth. 02/11/17 09:21 Blood Culture - Final Peripheral Venipuncture No growth. 02/08/17 06:45 Blood Culture - Final Peripheral Venipuncture No growth. 02/08/17 06:39 Blood Culture - Final Peripheral Venipuncture No growth. 02/11/17 08:54 Urine Culture - Final Urine,Clean Catch No pathogens isolated. 02/07/17 04:35 Blood Culture - Final Peripheral Venipuncture No growth. Serology 02/11/17 02/07/17 02/07/17 Range/Units 08:54 15:26 15:26 Urine Color Yellow (Yellow) Urine Clarity Cloudy A (Clear) Urine pH 5.5 (5.0-8.0) pH Units Ur Specific [place] 1.021 (1.010-1.025) Urine Protein Negative (Neg-Trace) mg/dL Urine Glucose (UA) Normal (Normal) mg/dL Urine Ketones Negative (Negative) mg/dL Urine Blood Moderate H (Negative) Urine Nitrite Negative (Negative) Urine Bilirubin Small H (Negative) Urine Urobilinogen Normal (Normal) mg/dL Ur Leukocyte Esterase Trace H (Negative) Urine Microscopic RBC 0-3 (0-3) per hpf Urine Microscopic WBC 0-3 (0-3) per hpf Ur Eosinophil Smear 0 (None Seen) % Ur Squamous Epith Cells Moderate H (None-Few) per lpf Urine Bacteria None Seen (None-Few) per hpf Hyaline Casts None Seen (None-Few) per lpf Ur Culture Indicated? YES A (NO) Urine Creatinine 158 mg/dL Urine Microalbumin 103 mg/L Microalb/Creat Ratio 65 H (0-30) Protein/Creatinin Ratio 0.41 H (0-0.20) mg/mg Urine Total Protein 65 H (1-14) mg/dL Exam - Constitutional Vitals: Temp Pulse Resp BP Pulse Ox 97.9 F 65 13 115/53 100 02/17/17 11:04 02/17/17 12:00 02/17/17 12:00 02/17/17 12:00 02/17/17 12:00 General appearance: morbidly obese, no acute distress, no febrile - Head Head exam: Present: atraumatic, normal inspection, normocephalic - Eye Eye exam: Present: normal appearance, PERRL Pupils: Present: normal accommodation - ENT ENT exam: Present: mucous membranes moist - Neck Neck exam: Present: normal inspection - Respiratory Respiratory exam: Present: CTAB. Absent: rales, respiratory distress, rhonchi, wheezes - Cardiovascular Cardiovascular exam: Present: irregular rhythm. Absent: tachycardia - GI/Abdominal GI/Abdominal exam: Present: distended (obese), normal bowel sounds, soft. Absent: tenderness Additional comments: Rectal tube with 100ml dark red bloody stool out since 0000. OGT tube with minimal output. Patel catheter draining clear yellow urine. - Extremities Exam Extremities exam: Present: pedal edema (1+ BLE). Absent: joint swelling, tenderness Additional comments: Dressings to BLE C/D/I. Erythema to the right foot resolved. Edema markedly improved to BLE. Second toe on the right foot with ecchymosis noted to the distal tip and toenail nearly completely gone. - Neurological Exam Neurological exam: Present: altered (Sedated. Does not respond to verbal or tactile stimuli. ) - Skin Skin exam: Present: dry, intact, normal color, warm Consult Discharge Plan - Plan Referrals: Yasmani Baker MD [Non-Partnered Physician] - (OFFICE WILL NOT MAKE A FOLLOW UP APPOINTMENT FOR THIS PATIENT UNITL WE HAVE A DISCHARGE ORDER) - Attending Attestation I examined this patient and my medical decision-making was reviewed with the PERINATAL COORDINATOR/PA/Advanced Practice Nurse/Resident Physician. I agree with the documented findings, disposition and treatment plan as described except to the extent set forth below.
[2017-02-17 16:46] LABS: Basophils # 0.1 K/mcL (0.0-0.2); Basophils % 0.5 %; Eosinophils # 0.6 K/mcL (0.0-0.6); Eosinophils % 3.2 %; Hematocrit 27.4 % (37.5-50.1); Hemoglobin 9.1 g/dL (12.9-16.9); Immature Granulocytes % 1.1 % (0-4); Lymphocytes # 1.2 K/mcL (0.6-4.6); Lymphocytes % 6.9 %; Mean Corpuscular HGB Conc 33.2 g/dL (31.6-35.5); Mean Corpuscular Hemoglobin 29.5 pg (28.0-33.3); Monocytes # 1.1 K/mcL (0.0-1.3); Monocytes % 6.4 %; Neutrophils # 14.5 K/mcL (1.6-8.9); Nucleated Red Blood Cells 0.1 /100 WBC (0); Platelet Count 160 K/mcL (140-400); Red Blood Count 3.08 M/mcL (4.19-5.50); Red Cell Distribution Width 17.2 % (11.5-14.5); Segmented Neutrophils % 81.9 %
[2017-02-17 22:04] LABS: Basophils # 0.1 K/mcL (0.0-0.2); Basophils % 0.5 %; Eosinophils # 0.6 K/mcL (0.0-0.6); Eosinophils % 3.3 %; Hematocrit 29.6 % (37.5-50.1); Hemoglobin 9.7 g/dL (12.9-16.9); Lymphocytes # 1.2 K/mcL (0.6-4.6); Lymphocytes % 7.1 %; Mean Corpuscular HGB Conc 32.8 g/dL (31.6-35.5); Mean Corpuscular Hemoglobin 29.1 pg (28.0-33.3); Mean Corpuscular Volume 88.9 fL (83.0-100.0); Mean Platelet Volume 10.2 fL (9.4-12.4); Monocytes # 0.9 K/mcL (0.0-1.3); Monocytes % 5.5 %; Neutrophils # 13.6 K/mcL (1.6-8.9); Nucleated Red Blood Cells 0.1 /100 WBC (0); Platelet Count 156 K/mcL (140-400); Red Blood Count 3.33 M/mcL (4.19-5.50); Segmented Neutrophils % 82.6 %
[2017-02-18 04:01] LABS: Basophils # 0.1 K/mcL (0.0-0.2); Basophils % 0.6 %; Eosinophils # 0.5 K/mcL (0.0-0.6); Eosinophils % 2.8 %; Hematocrit 30.8 % (37.5-50.1); Hemoglobin 10.4 g/dL (12.9-16.9); Immature Granulocytes % 0.8 % (0-4); Ionized Calcium 1.17 mmol/L (1.15-1.35); Lymphocytes # 1.3 K/mcL (0.6-4.6); Lymphocytes % 7.5 %; Mean Corpuscular HGB Conc 33.8 g/dL (31.6-35.5); Mean Corpuscular Hemoglobin 29.9 pg (28.0-33.3); Mean Corpuscular Volume 88.5 fL (83.0-100.0); Mean Platelet Volume 10.7 fL (9.4-12.4); Neutrophils # 14.1 K/mcL (1.6-8.9); Platelet Count 162 K/mcL (140-400); Red Blood Count 3.48 M/mcL (4.19-5.50); Red Cell Distribution Width 17.1 % (11.5-14.5); Segmented Neutrophils % 82.3 %
[2017-02-18] MEDS: Piperacillin/Tazobactam 3.375 GM in D5% in Water (Mini-Bag+) 100 ML IVPB SCH ×4 (04:03→20:48)
[2017-02-18] MEDS: Lacri-Lube 3.5 GM TUBE BOTH EYES SCH ×6 (04:05→23:44)
[2017-02-18] MEDS: Pantoprazole 40 MG in 0.9 % Sodium Chloride Mini Bag 100 ML IVC SCH ×6 (04:06→23:43)
[2017-02-18 04:08] LABS: BUN/Creatinine Ratio 40 (6-26); Blood Urea Nitrogen 48 mg/dL (8-26); Carbon Dioxide 25 mEq/L (19-29); Chloride 116 mEq/L (98-109); Glucose 119 mg/dL (70-99); Magnesium 1.8 mg/dL (1.6-2.6); Osmolality,Calculated 320 (280-300); Phosphorous 2.9 mg/dL (2.3-4.7); Potassium 3.4 mEq/L (3.5-4.5); Sodium 148 mEq/L (136-145); eGFR For African Americans > 60 (> 60); eGFR For Non-African Americans 59 (> 60)
[2017-02-18] MEDS: Potassium Chloride 40 MEQ/200 ML BAG IVPB PRN ×3 (04:39→22:56)
[2017-02-18] MEDS ORDERED: Potassium Phosphate 44 MEQ in 0.9 % Sodium Chloride 250 ML IVPB PRN (04:40)
[2017-02-18 05:07] LABS: ABG Base Excess 1.6 mEq/L (-2.0 to 3.0); ABG HCO3 25.8 mEQ/L (21-27); ABG Oxygen Saturation 95 % (95-98); ABG PCO2 38 mmHg (35-45); ABG PH 7.44 pH Units (7.32-7.45); ABG PO2 74 mmHg (85-104)
[2017-02-18 05:08] LABS: Blood Gas FiO2 30 %
[2017-02-18] MEDS: Magnesium Sulfate 2 GM in D5% in Water 100 ML IVPB PRN ×3 (05:37→22:56)
[2017-02-18] MEDS: Amiodarone Premix 360 MG/200 ML BAG IVC SCH ×3 (05:42→16:45)
[2017-02-18] MEDS: Insulin LISPRO 300 UNITS/3 ML VIAL SQ SCH ×4 (06:02→23:43)
[2017-02-18] MEDS: Norepinephrine 4 MG in D5% in Water 250 ML IVC SCH ×3 (06:57→20:49)
[2017-02-18] MEDS: Furosemide 40 MG/4 ML VIAL IVP SCH (07:07)
[2017-02-18] MEDS: Chlorhexidine Rinse 15 ML MOUTHWASH MM SCH ×2 (07:07→20:47)
[2017-02-18] MEDS: Lactobacillus 1 EACH CAP.SPRINK PO SCH (07:08)
--- NOTE | 2017-02-18 08:37 | Pulmonology Progress Note ---
<Carmelo Parker - Last Filed: 02/18/17 13:02> Date of Encounter: 02/18/17 Time of Encounter: 08:37 Assessment and Plan (1) Shock Current Visit: Yes Status: Resolved likely multifactorial in nature in setting of septic shock with group A strep bacteremia, hemorrhagic/hypovolemic shock, complicated by cardiomyopathy with EF 20-25% EGD from 02/08/17 showed 4cm bleeding duodenal ulcer, had clip placed and injection with epinephrine. repeat EGD on 02/15 showed same bleeding duodenal ulcer, which was cauterized. repeat EGD on 02/15 showed no bleeding. in total, patient received 18 units PRBCs, 5 units of plasma, 2 units platelets. bleeding scan was negative for active bleeding. Plan: will monitor H/H, transfuse blood as needed protonix drip for another 24 hours, will DC tomorrow and switch to BID appreciate GI recommendations. appreciate surgery recs. continue with zosyn for total of 14 days. will re start trickle feeds today with free water. Appreciate podiatry recommendations. (2) Sepsis Current Visit: Yes Status: Acute Septic shock likely secondary to cellulitis on lower extremities. CT RLE showed severe diffuse b/l LE Subcu fat stranding and skin thickening, no drainable fluid collection, no osseous abnormality, no gas. CT left lower extremity showed no osseous abnormality, no focal gas. Blood cultures showed group A strep, repeat blood cultures negative. wound cultures showed providencia rettgeri, group A strep, staph aureus repeat blood cultures showed no growth. Plan: continue zosyn for total of 14 days. Qualifiers: Sepsis type: sepsis due to unspecified organism Qualified Code(s): A41.9 - Sepsis, unspecified organism (3) Anemia Current Visit: Yes Status: Acute plan as #1 above Qualifiers: Anemia type: iron deficiency Iron deficiency anemia type: chronic blood loss Qualified Code(s): D50.0 - Iron deficiency anemia secondary to blood loss (chronic) (4) Acute respiratory failure with hypoxia and hypercapnia Current Visit: Yes Status: Acute patient was re-intubated yesterday secondary to hypoxia, SOB, and fluid overload in setting of blood transfusions and low EF Plan: patient failed CPAP. will continue with mechanical ventilation. sedation switched from versed to fentanyl+precedex. (5) SAGE (acute kidney injury) Current Visit: Yes Status: Resolved Cr normalized. Etiology likely pre-renal azotemia in setting of sepsis and cardiomyopathy. Plan: appreciate nephrology recs will monitor (6) Cardiomyopathy Current Visit: Yes Status: Acute Echo from 02/06/17 showed LVEF 20-25%, severe global LV systolic dysfunction, mild concentric LVH, severely dilated Left atrium, no pulmonary HTN, severely dialted right atrium, diastolic dysfunction. he has no prior echo to compare, but had a stress test in 2009 with gated EF 58% elevated troponin levels, trended down, likely secondary to sepsis but ischemic cause cannot be ruled out. patient was evaluated by cardio, they recommend C during stay to evaluate for possible ischemic cardiomyopathy if clinical course allows. Cardiology has Recommend medical management for now. according to tele, he has multiple episodes of ectopy plan: continue amiodarone gtt Qualifiers: Cardiomyopathy type: unspecified Qualified Code(s): I42.9 - Cardiomyopathy , unspecified (7) Pacemaker Current Visit: Yes Status: Acute patient has dual chamber pacemaker in place, last interrogated in 2014. (8) Acute systolic heart failure Current Visit: Yes Status: Acute BNP 2958 Echo showed EF 20-25% with severe global LV systolic dysfunction. Upon initial presentation, he was fluid overloaded. initial CXR showed trace pleural effusions. plan: hold lasix for today due to possible contraction alkalosis. strict I/O, daily weights. (9) A-fib Current Visit: Yes Status: Chronic per cardio records, patient was unaware of Afib, but he had Afib on his previous device checks. CHAds/vasc: 6 (age, CHF, HTN, CAD, DM) no anticoagulation at this time due to GI bleed. Qualifiers: Atrial fibrillation type: chronic Qualified Code(s): I48.2 - Chronic atrial fibrillation (10) CAD (coronary artery disease) Current Visit: Yes Status: Chronic Qualifiers: Coronary Disease-Associated Artery/Lesion type: [place] artery [place] vs. transplanted heart: [place] heart Associated angina: without angina Qualified Code(s): I25.10 - Atherosclerotic heart disease of [place] coronary artery without angina pectoris (11) Diabetes mellitus Current Visit: Yes Status: Chronic A1C 6.9 continue low dose sliding scale insulin. 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 cannot do heparin due to GI bleed. Neuro/sedation: sedated on versed. pulm: acute hypoxic respiratory failure, likely multifactorial secondary to shock, cardiomyopathy, volume overload. patient is intubated. CXR shows volume overload. cardio: cardiomyopathy with EF 20-25%. Cardio recommended ischemic eval when stable. Noticed frequent ectopy, continue amiodarone gtt. GI/FLuids/electrolytes: on protonix drip, carafate. S/p EGD showing no repeat bleeding. fluid overloaded. hold lasix for today due to possible contraction alkalosis. renal: SAGE, Cr stable. likely pre-renal in setting of shock/sepsis/ cardiomyopathy. nephro on board. no dialysis indicated at this time. ID: sepsis secondary to bilateral lower extremity cellulitis. wound cultures grew providencia rettgeri, strep pyogenes, staph aureus. appreciate ID recommendations. repeat blood cultures showed no growth. continue zosyn for total of 14 days. Heme/onc: shock (hemorrhagic, hypovolemic, cardiogenic), currently requiring levophed. repeat H/H. recheck lactate. discontinued ASA/heparin Endo: LDSSI. Subjective Principal diagnosis: GI bleed, Sepsis, acute systolic CHF. Interval history: 77 year old male evaluated at bedside. he had no events overnight and has been off levophed since 11pm, but was placed back on it this morning. Objective PUL Vital signs: Last Vital Signs Temp 98.2 F 02/18/17 08:00 Pulse 68 02/18/17 08:00 Resp 26 02/18/17 08:21 BP 117/54 02/18/17 08:21 Pulse Ox 99 02/18/17 08:21 General appearance: no acute distress, alert, lethargic Eyes: nonicteric ENT: oropharynx dry Neck: supple Auscultation: bilateral: clear Cardiovascular: PVC's noted (frequent PVCs) Gastrointestinal: normoactive bowel sounds, soft, non-tender Extremities: no cyanosis (right second toe coming off. ), edema (+2 bilateral upper and lower extremity pitting edema. ), other (bilateral lower extremity edema. ) unable to assess due to mental status (patient is not following commands. ) other (sedated. ) Ventilator Settings Ventilator Settings: Ventilator Settings, Last 8 Hours Ventilator Mode CPAP Ventilator Mode CPAP Ventilator Mode VC+ Ventilator Mode VC+ Ventilator Mode VC+ Ventilator Mode VC+ Ventilator Mode VC+ Ventilator Mode VC+ Ventilator Mode VC+ Ventilator Mode VC+ Ventilator Mode VC+ Ventilator Mode VC+ Ventilator Tidal Volume 550 Setting Ventilator Tidal Volume 550 Setting Ventilator Tidal Volume 550 Setting Ventilator Tidal Volume 550 Setting Ventilator Tidal Volume 550 Setting Ventilator Tidal Volume 550 Setting Ventilator Tidal Volume 550 Setting Ventilator Tidal Volume 550 Setting Ventilator Tidal Volume 550 Setting Ventilator Tidal Volume 550 Setting Ventilator Respiratory Rate 12 Setting Ventilator Respiratory Rate 12 Setting Ventilator Respiratory Rate 12 Setting Ventilator Respiratory Rate 12 Setting Ventilator Respiratory Rate 12 Setting Ventilator Respiratory Rate 12 Setting Ventilator Respiratory Rate 12 Setting Ventilator Respiratory Rate 12 Setting Ventilator Respiratory Rate 12 Setting Ventilator Respiratory Rate 12 Setting Actual Respiratory Rate 27 Actual Respiratory Rate 14 Actual Respiratory Rate 14 Actual Respiratory Rate 13 Actual Respiratory Rate 19 Actual Respiratory Rate 17 Actual Respiratory Rate 16 Actual Respiratory Rate 21 Actual Respiratory Rate 18 Actual Respiratory Rate 18 Positive End Expiratory 5 Pressure Positive End Expiratory 5 Pressure Positive End Expiratory 5 Pressure Positive End Expiratory 5 Pressure Positive End Expiratory 5 Pressure Positive End Expiratory 5 Pressure Positive End Expiratory 5 Pressure Positive End Expiratory 5 Pressure Positive End Expiratory 5 Pressure Positive End Expiratory 5 Pressure Positive End Expiratory 5 Pressure Peak Inspiratory Airway 15 Pressure Peak Inspiratory Airway 28 Pressure Peak Inspiratory Airway 27 Pressure Peak Inspiratory Airway 22 Pressure Peak Inspiratory Airway 23 Pressure Peak Inspiratory Airway 23 Pressure Peak Inspiratory Airway 23 Pressure Peak Inspiratory Airway 23 Pressure Peak Inspiratory Airway 23 Pressure Peak Inspiratory Airway 20 Pressure Results - Laboratory Findings CBC and BMP: 02/18/17 03:35 02/18/17 03:35 ABG ABG pH 7.44 pH Units (7.32-7.45) 02/18/17 05:00 ABG pCO2 38 mmHg (35-45) 02/18/17 05:00 ABG pO2 74 mmHg (85-104) L 02/18/17 05:00 ABG O2 Saturation 95 % (95-98) 02/18/17 05:00 PT/INR, D-dimer PT 16.3 Seconds (9.4-12.1) H 02/16/17 01:38 Abnormal lab findings: Abnormal lab results WBC 17.1 K/mcL (4.3-11.1) H 02/18/17 03:35 RBC 3.48 M/mcL (4.19-5.50) L 02/18/17 03:35 Hgb 10.4 g/dL (12.9-16.9) L 02/18/17 03:35 Hct 30.8 % (37.5-50.1) L 02/18/17 03:35 RDW 17.1 % (11.5-14.5) H 02/18/17 03:35 Metamyelocytes % 2.0 % (0) H 02/12/17 03:00 Myelocytes % 2.0 % (0) H 02/10/17 07:15 Promyelocytes % 2.0 % (0) H 02/09/17 16:16 Neutrophils # 14.1 K/mcL (1.6-8.9) H 02/18/17 03:35 Nucleated RBCs/100 WBC 0.1 /100 WBC (0) H 02/17/17 21:58 Reactive Lymphocytes Present (Not Present) A 02/13/17 03:00 Platelet Estimate Slight Decrease (Normal) L 02/13/17 03:00 Large Platelets Present (Not Present) A 02/13/17 03:00 Polychromasia 1+ (Not Present) A 02/13/17 03:00 Hypochromasia Present (Not Present) A 02/10/17 03:10 Poikilocytosis 1+ (Not Present) A 02/11/17 05:25 Anisocytosis 1+ (Not Present) A 02/13/17 03:00 Microcytosis Present (Not Present) A 02/12/17 03:00 Macrocytosis Present (Not Present) A 02/12/17 03:00 Target Cells 1+ (Not Present) A 02/13/17 03:00 ESR 61 mm/hr (0-10) H 02/15/17 16:45 PT 16.3 Seconds (9.4-12.1) H 02/16/17 01:38 APTT 40.8 Seconds (26.0-36.0) H 02/08/17 00:45 ABG pO2 74 mmHg (85-104) L 02/18/17 05:00 ABG Total CO2 27.0 mEq/L (20-26) H 02/18/17 05:00 Sodium 148 mEq/L (136-145) H 02/18/17 03:35 Potassium 3.4 mEq/L (3.5-4.5) L 02/18/17 03:35 Chloride 116 mEq/L (98-109) H 02/18/17 03:35 BUN 48 mg/dL (8-26) H 02/18/17 03:35 Est GFR (Non-Af Amer) 59 (> 60) L 02/18/17 03:35 BUN/Creatinine Ratio 40 (6-26) H 02/18/17 03:35 Glucose 119 mg/dL (70-99) H 02/18/17 03:35 POC Glucose 117 (58-89) H 02/18/17 06:01 Hemoglobin A1c 6.9 % (-5.6) H 02/06/17 06:18 Calculated Osmolality 320 (280-300) H 02/18/17 03:35 Calcium 8.0 mg/dL (8.6-10.8) L 02/18/17 03:35 Iron 54 mcg/dL (65-175) L 02/08/17 06:39 Transferrin 146 mg/dL (174-364) L 02/08/17 06:39 Ferritin 808 ng/ml (22-275) H 02/08/17 06:39 Total Bilirubin 4.3 mg/dL (0.2-1.2) H 02/16/17 01:38 Direct Bilirubin 3.2 mg/dL (0.0-0.5) H 02/16/17 01:38 AST 66 Units/L (5-34) H 02/16/17 01:38 Troponin I 0.24 ng/mL (0-0.03) H* 02/06/17 18:39 C-Reactive Protein 84 mg/L (Less than 5) H 02/15/17 16:45 B-Natriuretic Peptide 2958 pg/mL (0-100) H 02/05/17 23:05 Serum Total Protein 4.0 g/dL (6.0-8.3) L D 02/16/17 01:38 Total Protein (PEP) 5.10 g/dL (6.00-8.30) L 02/08/17 06:39 Albumin 1.2 g/dL (3.5-5.0) L 02/16/17 01:38 Albumin (PEP) 2.16 g/dL (3.75-5.01) L 02/08/17 06:39 Albumin/Globulin Ratio 0.4 (1.1-2.2) L 02/16/17 01:38 Tnlje-[id number] 0.53 g/dL (0.19-0.46) H 02/08/17 06:39 HDL Cholesterol 16 mg/dL (40-59) L 02/06/17 06:18 Cholesterol/HDL Ratio 6.7 (0-4.9) H 02/06/17 06:18 Vitamin B12 1850 pg/mL (213-816) H 02/08/17 06:39 25-OH Vitamin D Total 15 ng/mL (30-80) L 02/08/17 06:39 Folate 6.4 ng/mL (7.0-31.4) L 02/08/17 06:39 Urine Clarity Cloudy (Clear) A 02/11/17 08:54 Urine Blood Moderate (Negative) H 02/11/17 08:54 Urine Bilirubin Small (Negative) H 02/11/17 08:54 Ur Leukocyte Esterase Trace (Negative) H 02/11/17 08:54 Ur Squamous Epith Cells Moderate per lpf (None-Few) H 02/11/17 08:54 Ur Culture Indicated? YES (NO) A 02/11/17 08:54 Microalb/Creat Ratio 65 (0-30) H 02/07/17 15:26 Protein/Creatinin Ratio 0.41 mg/mg (0-0.20) H 02/07/17 15:26 Urine Total Protein 65 mg/dL (1-14) H 02/07/17 15:26 Streptococcus sp PCR DETECTED (Not Detect) A 02/05/17 23:06 Group A Strep DNA DETECTED (Not Detect) A 02/05/17 23:06 - Microbiology Findings Microbiology Findings: Microbiology, Last 48 Hours 02/11/17 11:00 Blood Culture - Final Central Venous Catheter No growth. 02/11/17 09:28 Blood Culture - Final Peripheral Venipuncture No growth. 02/11/17 09:21 Blood Culture - Final Peripheral Venipuncture No growth. - Clinical Findings Intake & Output: Intake & Output 02/17/17 02/18/17 02/18/17 23:59 07:59 15:59 Intake Total 1061.7 / 1061.7 1343 / 1343 100 / 100 Output Total 1100 / 1100 1050 / 1050 400 / 400 Balance -38.3 / -38.3 293 / 293 -300 / -300 Weight 129.8 kg Consult Discharge Plan - Plan Referrals: Yasmani Baker MD [Non-Partnered Physician] - (OFFICE WILL NOT MAKE A FOLLOW UP APPOINTMENT FOR THIS PATIENT UNITL WE HAVE A DISCHARGE ORDER) <Mynor Stover M - Last Filed: 02/18/17 17:14> Date of Encounter: 02/18/17 Objective PUL Vital signs: Last Vital Signs Temp 98.1 F 02/18/17 12:00 Pulse 68 02/18/17 17:00 Resp 12 02/18/17 17:00 BP 141/60 02/18/17 17:00 Pulse Ox 99 02/18/17 17:00 Ventilator Settings Ventilator Settings: Ventilator Settings, Last 8 Hours Ventilator Mode VC+ Ventilator Mode VC+ Ventilator Mode VC+ Ventilator Mode VC+ Ventilator Mode VC+ Ventilator Mode VC+ Ventilator Mode VC+ Ventilator Mode VC+ Ventilator Mode VC+ Ventilator Mode CPAP Ventilator Tidal Volume 550 Setting Ventilator Tidal Volume 550 Setting Ventilator Tidal Volume 550 Setting Ventilator Tidal Volume 550 Setting Ventilator Tidal Volume 550 Setting Ventilator Tidal Volume 550 Setting Ventilator Tidal Volume 550 Setting Ventilator Tidal Volume 550 Setting Ventilator Tidal Volume 550 Setting Ventilator Tidal Volume 500 Setting Ventilator Tidal Volume 550 Setting Ventilator Respiratory Rate 12 Setting Ventilator Respiratory Rate 12 Setting Ventilator Respiratory Rate 12 Setting Ventilator Respiratory Rate 12 Setting Ventilator Respiratory Rate 12 Setting Ventilator Respiratory Rate 12 Setting Ventilator Respiratory Rate 12 Setting Ventilator Respiratory Rate 12 Setting Ventilator Respiratory Rate 12 Setting Ventilator Respiratory Rate 12 Setting Ventilator Respiratory Rate 12 Setting Actual Respiratory Rate 12 Actual Respiratory Rate 13 Actual Respiratory Rate 14 Actual Respiratory Rate 13 Actual Respiratory Rate 12 Actual Respiratory Rate 15 Actual Respiratory Rate 12 Actual Respiratory Rate 12 Actual Respiratory Rate 12 Actual Respiratory Rate 12 Actual Respiratory Rate 16 Positive End Expiratory 5 Pressure Positive End Expiratory 5 Pressure Positive End Expiratory 5 Pressure Positive End Expiratory 5 Pressure Positive End Expiratory 5 Pressure Positive End Expiratory 5 Pressure Positive End Expiratory 5 Pressure Positive End Expiratory 5 Pressure Positive End Expiratory 5 Pressure Positive End Expiratory 5 Pressure Positive End Expiratory 5 Pressure Peak Inspiratory Airway 25 Pressure Peak Inspiratory Airway 25 Pressure Peak Inspiratory Airway 25 Pressure Peak Inspiratory Airway 26 Pressure Peak Inspiratory Airway 24 Pressure Peak Inspiratory Airway 27 Pressure Peak Inspiratory Airway 23 Pressure Peak Inspiratory Airway 23 Pressure Peak Inspiratory Airway 23 Pressure Peak Inspiratory Airway 17 Pressure Peak Inspiratory Airway 23 Pressure Results - Laboratory Findings CBC and BMP: 02/18/17 03:35 02/18/17 15:40 ABG ABG pH 7.44 pH Units (7.32-7.45) 02/18/17 05:00 ABG pCO2 38 mmHg (35-45) 02/18/17 05:00 ABG pO2 74 mmHg (85-104) L 02/18/17 05:00 ABG O2 Saturation 95 % (95-98) 02/18/17 05:00 PT/INR, D-dimer PT 16.3 Seconds (9.4-12.1) H 02/16/17 01:38 Abnormal lab findings: Abnormal lab results WBC 17.1 K/mcL (4.3-11.1) H 02/18/17 03:35 RBC 3.48 M/mcL (4.19-5.50) L 02/18/17 03:35 Hgb 10.4 g/dL (12.9-16.9) L 02/18/17 03:35 Hct 30.8 % (37.5-50.1) L 02/18/17 03:35 RDW 17.1 % (11.5-14.5) H 02/18/17 03:35 Metamyelocytes % 2.0 % (0) H 02/12/17 03:00 Myelocytes % 2.0 % (0) H 02/10/17 07:15 Promyelocytes % 2.0 % (0) H 02/09/17 16:16 Neutrophils # 14.1 K/mcL (1.6-8.9) H 02/18/17 03:35 Nucleated RBCs/100 WBC 0.1 /100 WBC (0) H 02/17/17 21:58 Reactive Lymphocytes Present (Not Present) A 02/13/17 03:00 Platelet Estimate Slight Decrease (Normal) L 02/13/17 03:00 Large Platelets Present (Not Present) A 02/13/17 03:00 Polychromasia 1+ (Not Present) A 02/13/17 03:00 Hypochromasia Present (Not Present) A 02/10/17 03:10 Poikilocytosis 1+ (Not Present) A 02/11/17 05:25 Anisocytosis 1+ (Not Present) A 02/13/17 03:00 Microcytosis Present (Not Present) A 02/12/17 03:00 Macrocytosis Present (Not Present) A 02/12/17 03:00 Target Cells 1+ (Not Present) A 02/13/17 03:00 ESR 61 mm/hr (0-10) H 02/15/17 16:45 PT 16.3 Seconds (9.4-12.1) H 02/16/17 01:38 APTT 40.8 Seconds (26.0-36.0) H 02/08/17 00:45 ABG pO2 74 mmHg (85-104) L 02/18/17 05:00 ABG Total CO2 27.0 mEq/L (20-26) H 02/18/17 05:00 Sodium 148 mEq/L (136-145) H 02/18/17 03:35 Chloride 116 mEq/L (98-109) H 02/18/17 03:35 BUN 48 mg/dL (8-26) H 02/18/17 03:35 Est GFR (Non-Af Amer) 59 (> 60) L 02/18/17 03:35 BUN/Creatinine Ratio 40 (6-26) H 02/18/17 03:35 Glucose 119 mg/dL (70-99) H 02/18/17 03:35 POC Glucose 140 (58-89) H 02/18/17 11:42 Hemoglobin A1c 6.9 % (-5.6) H 02/06/17 06:18 Calculated Osmolality 320 (280-300) H 02/18/17 03:35 Calcium 8.0 mg/dL (8.6-10.8) L 02/18/17 03:35 Iron 54 mcg/dL (65-175) L 02/08/17 06:39 Transferrin 146 mg/dL (174-364) L 02/08/17 06:39 Ferritin 808 ng/ml (22-275) H 02/08/17 06:39 Total Bilirubin 4.3 mg/dL (0.2-1.2) H 02/16/17 01:38 Direct Bilirubin 3.2 mg/dL (0.0-0.5) H 02/16/17 01:38 AST 66 Units/L (5-34) H 02/16/17 01:38 Troponin I 0.24 ng/mL (0-0.03) H* 02/06/17 18:39 C-Reactive Protein 84 mg/L (Less than 5) H 02/15/17 16:45 B-Natriuretic Peptide 2958 pg/mL (0-100) H 02/05/17 23:05 Serum Total Protein 4.0 g/dL (6.0-8.3) L D 02/16/17 01:38 Total Protein (PEP) 5.10 g/dL (6.00-8.30) L 02/08/17 06:39 Albumin 1.2 g/dL (3.5-5.0) L 02/16/17 01:38 Albumin (PEP) 2.16 g/dL (3.75-5.01) L 02/08/17 06:39 Albumin/Globulin Ratio 0.4 (1.1-2.2) L 02/16/17 01:38 Fnsqi-7-[id number] 0.53 g/dL (0.19-0.46) H 02/08/17 06:39 HDL Cholesterol 16 mg/dL (40-59) L 02/06/17 06:18 Cholesterol/HDL Ratio 6.7 (0-4.9) H 02/06/17 06:18 Vitamin B12 1850 pg/mL (213-816) H 02/08/17 06:39 25-OH Vitamin D Total 15 ng/mL (30-80) L 02/08/17 06:39 Folate 6.4 ng/mL (7.0-31.4) L 02/08/17 06:39 Procalcitonin 0.95 ng/mL (<=0.10) H 02/15/17 18:30 Urine Clarity Cloudy (Clear) A 02/11/17 08:54 Urine Blood Moderate (Negative) H 02/11/17 08:54 Urine Bilirubin Small (Negative) H 02/11/17 08:54 Ur Leukocyte Esterase Trace (Negative) H 02/11/17 08:54 Ur Squamous Epith Cells Moderate per lpf (None-Few) H 02/11/17 08:54 Ur Culture Indicated? YES (NO) A 02/11/17 08:54 Microalb/Creat Ratio 65 (0-30) H 02/07/17 15:26 Protein/Creatinin Ratio 0.41 mg/mg (0-0.20) H 02/07/17 15:26 Urine Total Protein 65 mg/dL (1-14) H 02/07/17 15:26 Streptococcus sp PCR DETECTED (Not Detect) A 02/05/17 23:06 Group A Strep DNA DETECTED (Not Detect) A 02/05/17 23:06 - Microbiology Findings Microbiology Findings: Microbiology, Last 48 Hours 02/11/17 11:00 Blood Culture - Final Central Venous Catheter No growth. 02/11/17 09:28 Blood Culture - Final Peripheral Venipuncture No growth. 02/11/17 09:21 Blood Culture - Final Peripheral Venipuncture No growth. - Clinical Findings Intake & Output: Intake & Output 02/18/17 02/18/17 02/18/17 07:59 15:59 23:59 Intake Total 1343 / 1343 1163 / 1163 238 / 238 Output Total 1050 / 1050 1525 / 1525 Balance 293 / 293 -362 / -362 238 / 238 Weight 129.8 kg - Attending Attestation I examined this patient and my medical decision-making was reviewed with the CLAIM TAKER/PA/Advanced Practice Nurse/Resident Physician. I agree with the documented findings, disposition and treatment plan as described except to the extent set forth below. Patient seen and examined. Labs, radiology, chart personally reviewed. Agree with resident's history and physical, assessment, plan with following comments: [employer]: Patient follows commands, Pulmonary: Acceptable oxygenation and ventilation, however his blood pressure dropped and patient was switched to full vent support and overall he did few hours of spontaneous breathing trial Cardiovascular: Hypotension, which could be multifactorial from his underlying cardiomyopathy and also risk of bleeding GI: Nutrition per dietary and GI prophylaxis per routine. Diet if GI has no plan for more endoscopies Heme: DVT prophylaxis per routine ID: Continue antibiotics and plan to de-escalation Renal; urine out put and renal funtion reviewed Endorcine: blood glucose is monitored Lines: all lines checked and no evidence of infections Skin: skin care to prevent pressure ulcers per nursing routine care Overall prognosis is poor.
[2017-02-18] MEDS: FentaNYL (PF) 1,000 MCG in 0.9 % Sodium Chloride 80 ML IVC SCH (09:44)
[2017-02-18] MEDS: Dexmedetomidine HCl 400 MCG/100 ML MLS IVC SCH (09:45)
--- NOTE | 2017-02-18 10:02 | Nephrology Progress Note ---
Date of Encounter: 02/18/17 Time of Encounter: 09:58 - Assessment and Plan (1) SAGE (acute kidney injury) Current Visit: Yes Status: Resolved Patient with multifactorial SAGE. Patient with recovering ATN. No indications for renal replacement therapy. Continue supportive care. Renal dose medications and avoid nephrotoxins. Plan discussed with ICU team. Will follow labs. (2) Anemia Current Visit: Yes Status: Acute secondary to GI bleeding. Management per GI and primary team. Hemoglobin seems stable. Qualifiers: Anemia type: iron deficiency Iron deficiency anemia type: chronic blood loss Qualified Code(s): D50.0 - Iron deficiency anemia secondary to blood loss (chronic) (3) Diabetes mellitus Current Visit: Yes Status: Chronic Per primary team. Qualifiers: Diabetes mellitus type: type 2 Diabetes mellitus complication status: with unspecified complications Diabetes mellitus supervisor intermediates insulin use: without supervisor intermediates use Qualified Code(s): E11.8 - Type 2 diabetes mellitus with unspecified complications (4) CAD (coronary artery disease) Current Visit: Yes Status: Chronic Per cardiology. Qualifiers: Coronary Disease-Associated Artery/Lesion type: [place] artery [place] vs. transplanted heart: [place] heart Associated angina: without angina Qualified Code(s): I25.10 - Atherosclerotic heart disease of [place] coronary artery without angina pectoris Subjective Principal diagnosis: GI bleed, Sepsis, acute systolic CHF. Interval history: Patient intubated and sedated. ROS unobtainable. Objective - Vital Signs Vital signs: Vital Signs Temp Pulse Resp BP Pulse Ox 02/18/17 09:42 16 104/45 100 02/18/17 09:00 77 30 107/44 99 02/18/17 08:21 26 117/54 99 02/18/17 08:00 98.2 F 68 24 115/53 99 02/18/17 07:15 74 02/18/17 07:00 73 25 105/49 98 02/18/17 06:12 14 97 02/18/17 06:00 66 14 111/50 98 02/18/17 05:00 75 13 91/47 97 02/18/17 04:55 98.8 F 02/18/17 04:22 17 119/53 96 02/18/17 04:00 80 17 147/76 96 02/18/17 03:45 80 02/18/17 03:00 68 16 121/54 98 02/18/17 02:16 16 126/58 99 02/18/17 02:12 99.4 F 72 21 130/62 98 02/18/17 02:00 78 18 121/56 99 02/18/17 01:00 77 18 119/50 98 02/18/17 00:00 73 22 123/54 98 02/17/17 23:48 80 02/17/17 23:32 98.6 F 75 20 116/52 99 02/17/17 23:17 98.6 F 79 21 124/55 98 02/17/17 23:00 80 23 128/58 97 02/17/17 22:13 13 100/42 100 02/17/17 22:00 75 16 107/49 99 02/17/17 21:00 77 16 150/65 100 02/17/17 20:54 98.2 F 73 14 126/53 100 02/17/17 20:47 14 123/52 100 02/17/17 20:00 98.2 F 79 14 118/53 100 02/17/17 19:00 70 15 118/54 100 02/17/17 18:13 19 99 02/17/17 18:00 70 15 107/51 99 02/17/17 17:59 98 F 67 15 109/51 100 02/17/17 17:44 98.1 F 69 14 101/54 98 02/17/17 17:00 65 16 117/56 97 02/17/17 16:00 60 13 84/53 99 02/17/17 15:51 98.8 F 02/17/17 15:34 24 107/45 97 02/17/17 15:00 98.8 F 59 24 107/45 97 02/17/17 14:00 67 12 90/41 98 02/17/17 13:50 12 100 02/17/17 13:00 66 12 114/51 100 02/17/17 12:05 13 121/56 100 02/17/17 12:00 65 13 115/53 100 02/17/17 11:50 55 02/17/17 11:04 97.9 F 02/17/17 11:00 72 12 118/58 100 02/17/17 10:00 69 15 122/57 100 Intake and Output 02/17/17 02/18/17 02/18/17 23:59 07:59 15:59 Intake Total 1061.7 / 1061.7 1343 / 1343 235 / 235 Output Total 1100 / 1100 1050 / 1050 400 / 400 Balance -38.3 / -38.3 293 / 293 -165 / -165 Intake: IV Fluids 714.7 / 714.7 1043 / 1043 235 / 235 Amiodarone Drip Premix 200 / 200 200 / 200 360mg/200mL 360 mg In 200 ml @ 0.5 MG/MIN 16.667 mls/hr IVC CONT XIMENA Rx#: [id number] Versed 50 MG In 0.9 % 96 / 96 35 / 35 Sodium Chloride 90 ML @ 2 MG/HR 4 mls/hr IVC CONT XIMENA Rx#:[id number] Levophed 4 MG In Dextrose 14.7 / 14.7 43 / 43 0 / 0 5% 250 ML @ 4 MCG/MIN 15 mls/hr IVC CONT XIMENA Rx#: [id number] Protonix 40 MG In 0.9 % 200 / 200 100 / 100 100 / 100 Sodium Chloride (Mini-Bag +) 100 ML @ 20 mls/hr IVC .Q5H XIMENA Rx#: [id number] Magnesium Sulfate 2 GM In 104 / 104 Dextrose 5% 100 ML @ 50 mls/hr IVPB Q6H PRN Rx#: [id number] Zosyn 3.375 GM In 100 / 100 100 / 100 100 / 100 Dextrose 5% (Minibag+) 100 ML 100 ML @ 25 mls/hr IVPB Q8H XIMENA Rx#: [id number] Potassium Chloride 20 mEq 200 / 200 400 / 400 /100 mL 40 meq In 200 ml @ 100 mls/hr IVPB Q1H PRN Rx#:[id number] Blood Product 287 / 287 300 / 300 Rbcs Leuko Poor As-1 0 / 0 300 / 300 Unit [id number] Rbcs Leuko Poor As-1 287 / 287 Unit [id number] Free Water 60 / 60 Output: Rectal Tube 200 / 200 200 / 200 Catheter 800 / 800 850 / 850 400 / 400 Gastric Drainage 100 / 100 Other: Weight 129.8 kg Blood Glucose* 117 Patient Weight 02/18/17 23:59 Weight 129.8 kg - General Appearance General appearance: Present: well-developed, well-nourished, sedated on ventilator, intubated EENT: Present: ATNC Neck: Present: supple Respiratory: Present: course breath sounds Cardiology: Present: regular rate ( ) Gastrointestinal: Present: no tenderness Integumentary: Present: warm and dry - Lab 02/18/17 03:35 02/18/17 03:35 Most recent lab results ABG pH 7.44 pH Units (7.32-7.45) 02/18/17 05:00 ABG pCO2 38 mmHg (35-45) 02/18/17 05:00 ABG pO2 74 mmHg (85-104) L 02/18/17 05:00 ABG HCO3 25.8 mEQ/L (21-27) 02/18/17 05:00 ABG O2 Saturation 95 % (95-98) 02/18/17 05:00 Calcium 8.0 mg/dL (8.6-10.8) L 02/18/17 03:35 Phosphorus 2.9 mg/dL (2.3-4.7) 02/18/17 03:35 Magnesium 1.8 mg/dL (1.6-2.6) 02/18/17 03:35 Urine Creatinine 158 mg/dL 02/07/17 15:26 Urine Total Protein 65 mg/dL (1-14) H 02/07/17 15:26 Consult Discharge Plan - Plan Referrals: Yasmani Baker MD [Non-Partnered Physician] - (OFFICE WILL NOT MAKE A FOLLOW UP APPOINTMENT FOR THIS PATIENT UNITL WE HAVE A DISCHARGE ORDER)
--- NOTE | 2017-02-18 10:52 | Event Note ---
Date of Encounter: 02/18/17 Time of Encounter: 10:50 No further bleeding events. Most recent EGD report reviewed. Patient tolerated CPAP for about 4 hours this am. Changes will be made to sedation today. Hopefully, pt will tolerate extubation over the weekend. Daughter, Patricia has not contacted me regarding further discussion of code status. He remains full code. Palliative will follow at a distance. Please call over the weekend if needed.
[2017-02-18 16:02] LABS: Magnesium 1.8 mg/dL (1.6-2.6); Phosphorous 3.9 mg/dL (2.3-4.7); Potassium 3.6 mEq/L (3.5-4.5)
[2017-02-18 17:41] LABS: Basophils # 0.1 K/mcL (0.0-0.2); Basophils % 0.7 %; Eosinophils # 0.6 K/mcL (0.0-0.6); Eosinophils % 3.7 %; Hematocrit 32.5 % (37.5-50.1); Hemoglobin 10.6 g/dL (12.9-16.9); Immature Granulocytes % 0.8 % (0-4); Lymphocytes # 1.5 K/mcL (0.6-4.6); Lymphocytes % 8.6 %; Mean Corpuscular HGB Conc 32.6 g/dL (31.6-35.5); Mean Corpuscular Hemoglobin 29.2 pg (28.0-33.3); Mean Corpuscular Volume 89.5 fL (83.0-100.0); Mean Platelet Volume 10.6 fL (9.4-12.4); Monocytes % 6.1 %; Neutrophils # 13.7 K/mcL (1.6-8.9); Platelet Count 196 K/mcL (140-400); Red Blood Count 3.63 M/mcL (4.19-5.50); Red Cell Distribution Width 17.3 % (11.5-14.5); Segmented Neutrophils % 80.1 %
[2017-02-18 22:12] LABS: Basophils # 0.1 K/mcL (0.0-0.2); Basophils % 0.7 %; Eosinophils # 0.8 K/mcL (0.0-0.6); Eosinophils % 4.9 %; Hematocrit 33.5 % (37.5-50.1); Hemoglobin 10.8 g/dL (12.9-16.9); Immature Granulocytes % 0.8 % (0-4); Lymphocytes # 1.4 K/mcL (0.6-4.6); Lymphocytes % 8.7 %; Mean Corpuscular HGB Conc 32.2 g/dL (31.6-35.5); Mean Corpuscular Volume 89.8 fL (83.0-100.0); Mean Platelet Volume 10.5 fL (9.4-12.4); Monocytes # 1.1 K/mcL (0.0-1.3); Monocytes % 6.3 %; Neutrophils # 13.1 K/mcL (1.6-8.9); Platelet Count 205 K/mcL (140-400); Red Blood Count 3.73 M/mcL (4.19-5.50); Red Cell Distribution Width 17.5 % (11.5-14.5); Segmented Neutrophils % 78.6 %
[2017-02-18 22:18] LABS: Magnesium 1.9 mg/dL (1.6-2.6); Potassium 3.8 mEq/L (3.5-4.5)
[2017-02-19] MEDS: Piperacillin/Tazobactam 3.375 GM in D5% in Water (Mini-Bag+) 100 ML IVPB SCH ×3 (03:31→20:58)
[2017-02-19] MEDS: Dexmedetomidine HCl 400 MCG/100 ML MLS IVC SCH ×2 (03:32→20:58)
[2017-02-19 03:42] LABS: Basophils # 0.1 K/mcL (0.0-0.2); Basophils % 0.6 %; Eosinophils # 0.6 K/mcL (0.0-0.6); Eosinophils % 4.1 %; Hematocrit 33.1 % (37.5-50.1); Hemoglobin 10.6 g/dL (12.9-16.9); Immature Granulocytes % 0.6 % (0-4); Immature Platelets 2.6 % (1.1-6.1); Lymphocytes # 1.3 K/mcL (0.6-4.6); Lymphocytes % 8.6 %; Mean Corpuscular Hemoglobin 28.7 pg (28.0-33.3); Mean Corpuscular Volume 89.7 fL (83.0-100.0); Mean Platelet Volume 9.6 fL (9.4-12.4); Monocytes # 0.9 K/mcL (0.0-1.3); Monocytes % 5.8 %; Neutrophils # 12.2 K/mcL (1.6-8.9); Platelet Count 200 K/mcL (140-400); Red Blood Count 3.69 M/mcL (4.19-5.50); Red Cell Distribution Width 17.2 % (11.5-14.5); Segmented Neutrophils % 80.3 %
[2017-02-19 03:45] LABS: ABG Base Excess 3.2 mEq/L (-2.0 to 3.0); ABG HCO3 28.5 mEQ/L (21-27); ABG Oxygen Saturation 97 % (95-98); ABG PCO2 46 mmHg (35-45); ABG PO2 94 mmHg (85-104); ABG TCO2 29.9 mEq/L (20-26); Blood Gas FiO2 30 %
[2017-02-19 03:49] LABS: Ionized Calcium 1.26 mmol/L (1.15-1.35)
[2017-02-19 04:09] LABS: BUN/Creatinine Ratio 34 (6-26); Blood Urea Nitrogen 37 mg/dL (8-26); Calcium 8.3 mg/dL (8.6-10.8); Carbon Dioxide 24 mEq/L (19-29); Chloride 117 mEq/L (98-109); Glucose 156 mg/dL (70-99); Magnesium 2.2 mg/dL (1.6-2.6); Osmolality,Calculated 316 (280-300); Phosphorous 3.5 mg/dL (2.3-4.7); Potassium 4.3 mEq/L (3.5-4.5); Sodium 147 mEq/L (136-145); eGFR For African Americans > 60 (> 60); eGFR For Non-African Americans > 60 (> 60)
[2017-02-19] MEDS: Pantoprazole 40 MG in 0.9 % Sodium Chloride Mini Bag 100 ML IVC SCH (04:44)
[2017-02-19] MEDS: Lacri-Lube 3.5 GM TUBE BOTH EYES SCH ×6 (04:45→23:24)
[2017-02-19] MEDS: Amiodarone Premix 360 MG/200 ML BAG IVC SCH (04:46)
[2017-02-19] MEDS: Insulin LISPRO 300 UNITS/3 ML VIAL SQ SCH ×4 (06:07→23:24)
[2017-02-19] MEDS: FentaNYL (PF) 1,000 MCG in 0.9 % Sodium Chloride 80 ML IVC SCH (08:02)
[2017-02-19] MEDS: Lactobacillus 1 EACH CAP.SPRINK PO SCH (08:11)
[2017-02-19] MEDS: Chlorhexidine Rinse 15 ML MOUTHWASH MM SCH ×2 (08:11→20:58)
[2017-02-19] MEDS: Pantoprazole 40 MG VIAL IVP SCH ×2 (08:11→17:55)
--- NOTE | 2017-02-19 08:22 | Internal Med Progress Note ---
<Mariano Hamilton - Last Filed: 02/19/17 09:07> Date of Encounter: 02/19/17 Time of Encounter: 08:20 - Assessment and plan (1) Shock Current Visit: Yes Status: Resolved Assessment and plan: Hemmorhagic resolved. Hg stable. continue to monitor. (2) Sepsis Current Visit: Yes Status: Acute Assessment and plan: secondary to Group A strep. Also has grown provedentia from LE wound. Afebrile. WBC trending down. Continue Zosyn (3) SAGE (acute kidney injury) Current Visit: Yes Status: Resolved Assessment and plan: resolved. (4) Anemia Current Visit: Yes Status: Acute Assessment and plan: blood loss anemia. stable Qualifiers: Anemia type: iron deficiency Iron deficiency anemia type: chronic blood loss Qualified Code(s): D50.0 - Iron deficiency anemia secondary to blood loss (chronic) (5) Cardiomyopathy Current Visit: Yes Status: Acute Assessment and plan: appreciate cardiology input. pt needs LHC when medically stable. EF of 20-25 % Still having a lot of ectopy/ PVC storm. was placed on amioderone. Will DC amioderone and plan to transition to Betabloker in AM if pressures remain stable. Should also consider adding a low dose ACEi as well. IF EF remains low at follow up echo will need to consider ICD placement. [place] QRS [place] not appear to be widened so I do not think he would be candidate for cardiac resynchronization therapy. Will defer to cardiology. Qualifiers: Cardiomyopathy type: unspecified Qualified Code(s): I42.9 - Cardiomyopathy , unspecified (6) Pacemaker Current Visit: Yes Status: Acute (7) Acute systolic heart failure Current Visit: Yes Status: Acute Assessment and plan: plan as stated above. (8) Acute respiratory failure with hypoxia and hypercapnia Current Visit: Yes Status: Acute Assessment and plan: meeting ventialtion and oxygenation goals. SBT trial today to see if we can wean him off the vent. (9) Duodenal ulcer Current Visit: Yes Status: Acute Assessment and plan: continue PPI and carafate (10) GI bleeding Current Visit: Yes Status: Acute Assessment and plan: Hg stable. continue protonix and carafate. Qualifiers: GI bleed type/associated pathology: duodenal ulcer Qualified Code(s): 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 (11) Bacteremia Current Visit: Yes Status: Acute Assessment and plan: continue zosyn until completion of course. (12) Leukocytosis Current Visit: Yes Status: Acute Assessment and plan: trending down. Qualifiers: Leukocytosis type: unspecified Qualified Code(s): D72.829 - Elevated white blood cell count, unspecified (13) Thrombocytopenia Current Visit: Yes Status: Resolved Assessment and plan: resolved (14) DVT prophylaxis Current Visit: Yes Status: Acute Assessment and plan: No on pharmicologic prophylaxis as he is high risk for bleeding. He has had 2 major bleeding episodes this admission. No EPCDs given his leg wounds. - Subjective Interval history: No major events overnight. PAtient currently unresponsive but is also on sedation. Appears to be tolerating the vent well. - Constitutional Vitals: Temp Pulse Resp BP Pulse Ox 97.7 F 73 21 106/62 99 02/19/17 04:00 02/19/17 08:00 02/19/17 08:05 02/19/17 08:00 02/19/17 08:05 General appearance: Present: disheveled, morbidly obese. Absent: answers questions appropriately - Other Additional findings: Gen.: This is a well-developed well-nourished 77-year-old male is currently intubated and on sedation. Appears to be tolerating that well. HEENT: Head is cephalic atraumatic. He was are equally round and react to light. Moist mucous membranes. He has an endotracheal and orogastric tube in place. Neck is supple no masses thyromegaly. Trachea midline. Heart: Regular rate and rhythm without murmurs rubs or gallops. Heart tones are somewhat distant this is unchanged from prior exams. Point of maximal impulse is slightly displaced to the left of the midclavicular line fifth intercostal space. No JVD. Lungs: Clear to auscultation bilaterally. Abdomen: Obese, soft, no masses. Musculoskeletal: Grossly normal for age no gross for is noted. Extremities: The lower extremity wounds are well dressed. He does have a necrotic toe of the right foot. This is unchanged from prior exams. Sliding integument: No rashes or lesions noted. Internal Medicine: Result - Labs CBC & Chem 7: 02/19/17 03:33 02/19/17 03:33 Labs: Short CBC 02/18/17 02/18/17 02/19/17 Range/Units 17:25 21:52 03:33 WBC 17.1 H 16.6 H 15.2 H (4.3-11.1) K/mcL Hgb 10.6 L 10.8 L 10.6 L (12.9-16.9) g/dL Hct 32.5 L 33.5 L 33.1 L (37.5-50.1) % Plt Count 196 205 200 (140-400) K/mcL Neutrophils # 13.7 H 13.1 H 12.2 H (1.6-8.9) K/mcL BMP 02/18/17 02/18/17 02/19/17 15:40 21:52 03:33 Sodium 147 H Potassium 3.6 3.8 4.3 Chloride 117 H Carbon Dioxide 24 BUN 37 H D Creatinine 1.10 Glucose 156 H Calcium 8.3 L - ABG Interpretation ABG results: ABG ABG pH 7.40 pH Units (7.32-7.45) 02/19/17 03:37 ABG pCO2 46 mmHg (35-45) H 02/19/17 03:37 ABG pO2 94 mmHg (85-104) 02/19/17 03:37 ABG O2 Saturation 97 % (95-98) 02/19/17 03:37 PT/INR, D-dimer PT 16.3 Seconds (9.4-12.1) H 02/16/17 01:38 - Impressions Impressions Ankle X-Ray 02/18/17 17:11 IMPRESSION: 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 Diffuse subcutaneous edema without acute osseous abnormality identified. D/ / Pino Dyson MD / Pino Dyson MD Interpreting Provider: Pino Dyson MD Consult Discharge Plan - Plan Referrals: Yasmani Baker MD [Non-Partnered Physician] - (OFFICE WILL NOT MAKE A FOLLOW UP APPOINTMENT FOR THIS PATIENT UNITL WE HAVE A DISCHARGE ORDER) <Mynor Stover - Last Filed: 02/19/17 11:57> Date of Encounter: 02/19/17 - Constitutional Vitals: Temp Pulse Resp BP Pulse Ox 97.7 F 65 28 122/66 99 02/19/17 04:00 02/19/17 11:00 02/19/17 11:00 02/19/17 11:00 02/19/17 11:00 Internal Medicine: Result - Labs CBC & Chem 7: 02/19/17 03:33 02/19/17 03:33 Labs: Short CBC 02/18/17 02/18/17 02/19/17 Range/Units 17:25 21:52 03:33 WBC 17.1 H 16.6 H 15.2 H (4.3-11.1) K/mcL Hgb 10.6 L 10.8 L 10.6 L (12.9-16.9) g/dL Hct 32.5 L 33.5 L 33.1 L (37.5-50.1) % Plt Count 196 205 200 (140-400) K/mcL Neutrophils # 13.7 H 13.1 H 12.2 H (1.6-8.9) K/mcL BMP 02/18/17 02/18/17 02/19/17 15:40 21:52 03:33 Sodium 147 H Potassium 3.6 3.8 4.3 Chloride 117 H Carbon Dioxide 24 BUN 37 H D Creatinine 1.10 Glucose 156 H Calcium 8.3 L - ABG Interpretation ABG results: ABG ABG pH 7.40 pH Units (7.32-7.45) 02/19/17 03:37 ABG pCO2 46 mmHg (35-45) H 02/19/17 03:37 ABG pO2 94 mmHg (85-104) 02/19/17 03:37 ABG O2 Saturation 97 % (95-98) 02/19/17 03:37 PT/INR, D-dimer PT 16.3 Seconds (9.4-12.1) H 02/16/17 01:38 - Impressions Impressions Ankle X-Ray 02/18/17 17:11 IMPRESSION: 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 Diffuse subcutaneous edema without acute osseous abnormality identified. D/ / Pino Dyson MD / Pino Dyson MD Interpreting Provider: Pino Dyson MD - Attending Attestation I examined this patient and my medical decision-making was reviewed with the TRACK HELPER/PA/Advanced Practice Nurse/Resident Physician. I agree with the documented findings, disposition and treatment plan as described except to the extent set forth below. Patient seen and examined. Labs, radiology, chart personally reviewed. 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 Patient is tolerating spontaneous breathing trial, however with his mental status change which could be metabolic encephalopathy we will continue CPAP trial) he is awake enough and follows commands then will consider patient. Cardiovascular: Patient continued to have multiple PVCs and will discontinue amiodarone since it has not been effective GI: Nutrition per dietary and GI prophylaxis per routine Heme: DVT prophylaxis per routine. H&H has been stable ID: Continue antibiotics and plan to de-escalation Renal; urine out put and renal funtion reviewed Endorcine: blood glucose is monitored Lines: all lines checked and no evidence of infections Skin: skin care to prevent pressure ulcers per nursing routine care
--- NOTE | 2017-02-19 12:08 | Nephrology Progress Note ---
Date of Encounter: 02/19/17 Time of Encounter: 12:06 - Assessment and Plan (1) SAGE (acute kidney injury) Current Visit: Yes Status: Resolved Patient with multifactorial SAGE. Patient with recovering ATN. No indications for renal replacement therapy. Continue supportive care. Renal dose medications and avoid nephrotoxins. Plan discussed with ICU team. Will sign off. Please call with questions or concerns. Subjective Principal diagnosis: GI bleed, Sepsis, acute systolic CHF. Interval history: Patient intubated and sedated. ROS unobtainable. Objective - Vital Signs Vital signs: Vital Signs Temp Pulse Resp BP Pulse Ox 02/19/17 11:56 64 26 113/64 100 02/19/17 11:00 65 28 122/66 99 02/19/17 10:21 25 100 02/19/17 10:00 72 22 118/64 100 02/19/17 09:00 66 18 119/69 100 02/19/17 08:05 21 99 02/19/17 08:00 73 13 106/62 98 02/19/17 07:00 70 14 110/63 99 02/19/17 06:00 69 15 131/69 97 02/19/17 05:30 12 121/66 97 02/19/17 05:00 63 15 121/82 97 02/19/17 04:00 97.7 F 69 15 114/66 95 02/19/17 03:51 68 02/19/17 03:35 14 132/70 99 02/19/17 03:00 73 13 127/68 99 02/19/17 02:00 71 17 131/75 99 02/19/17 01:29 14 148/76 98 02/19/17 01:00 61 14 136/61 98 02/19/17 00:00 71 12 117/58 99 02/18/17 23:46 66 02/18/17 23:39 97.7 F 02/18/17 23:25 12 117/54 99 02/18/17 23:00 66 13 123/57 98 02/18/17 22:00 65 12 110/47 98 02/18/17 21:47 12 113/46 99 02/18/17 21:00 69 12 113/52 100 02/18/17 20:00 70 12 108/49 99 02/18/17 19:54 73 06/02/17 19:48 12 114/50 99 02/18/17 19:00 69 12 100/51 99 02/18/17 18:00 83 13 115/50 98 02/18/17 17:24 12 123/52 98 02/18/17 17:00 68 12 141/60 99 02/18/17 16:12 14 98 02/18/17 16:00 60 14 125/49 98 02/18/17 15:00 70 13 103/42 98 02/18/17 14:00 61 12 98/41 98 02/18/17 13:00 65 15 106/47 100 Intake and Output 02/18/17 02/19/17 02/19/17 23:59 07:59 15:59 Intake Total 1244 / 1244 1470 / 1470 333 / 333 Output Total 625 / 625 550 / 550 200 / 200 Balance 619 / 619 920 / 920 133 / 133 Intake: IV Fluids 886 / 886 1023 / 1023 233 / 233 Amiodarone Drip Premix 200 / 200 200 / 200 75 / 75 360mg/200mL 360 mg In 200 ml @ 0.5 MG/MIN 16.667 mls/hr IVC CONT XIMENA Rx#: [id number] PRECEDEX 400 mcg In 100 0 / 0 79 / 79 26 / 26 ml @ 0.2 MCG/KG/HR 6.49 mls/hr IVC .[id number] XIMENA Rx#:[id number] FentaNYL (PF) 1,000 MCG 38 / 38 62 / 62 In 0.9 % Sodium Chloride 80 ML @ 50 MCG/HR 5 mls/ hr IVC CONT XIMENA Rx#: [id number] Levophed 4 MG In Dextrose 144 / 144 140 / 140 5% 250 ML @ 4 MCG/MIN 15 mls/hr IVC CONT XIMENA Rx#: [id number] Protonix 40 MG In 0.9 % 200 / 200 100 / 100 70 / 70 Sodium Chloride (Mini-Bag +) 100 ML @ 20 mls/hr IVC .Q5H XIMENA Rx#: [id number] Magnesium Sulfate 2 GM In 104 / 104 104 / 104 Dextrose 5% 100 ML @ 50 mls/hr IVPB Q6H PRN Rx#: [id number] Zosyn 3.375 GM In 200 / 200 Dextrose 5% (Minibag+) 100 ML 100 ML @ 25 mls/hr IVPB Q8H XIMENA Rx#: [id number] Potassium Chloride 20 mEq 200 / 200 200 / 200 /100 mL 40 meq In 200 ml @ 100 mls/hr IVPB Q1H PRN Rx#:[id number] Tube Feeding 158 / 158 147 / 147 Free Water 200 / 200 100 / 100 Free Water Intake Amount 200 / 200 100 / 100 Output: Rectal Tube 100 / 100 50 / 50 Catheter 525 / 525 500 / 500 200 / 200 Other: Stool Color Brown Green Blood Glucose* 134 156 110 - General Appearance General appearance: Present: well-developed, well-nourished, obese EENT: Present: ATNC Respiratory: Present: course breath sounds Cardiology: Present: edema, regular rate - Lab 02/19/17 03:33 02/19/17 03:33 Most recent lab results ABG pH 7.40 pH Units (7.32-7.45) 02/19/17 03:37 ABG pCO2 46 mmHg (35-45) H 02/19/17 03:37 ABG pO2 94 mmHg (85-104) 02/19/17 03:37 ABG HCO3 28.5 mEQ/L (21-27) H 02/19/17 03:37 ABG O2 Saturation 97 % (95-98) 02/19/17 03:37 Calcium 8.3 mg/dL (8.6-10.8) L 02/19/17 03:33 Phosphorus 3.5 mg/dL (2.3-4.7) 02/19/17 03:33 Magnesium 2.2 mg/dL (1.6-2.6) 02/19/17 03:33 Urine Creatinine 158 mg/dL 02/07/17 15:26 Urine Total Protein 65 mg/dL (1-14) H 02/07/17 15:26 Consult Discharge Plan - Plan Referrals: Yasmani Baker MD [Non-Partnered Physician] - (OFFICE WILL NOT MAKE A FOLLOW UP APPOINTMENT FOR THIS PATIENT UNITL WE HAVE A DISCHARGE ORDER)
[2017-02-20] MEDS: Lacri-Lube 3.5 GM TUBE BOTH EYES SCH ×3 (03:22→11:24)
[2017-02-20 03:55] LABS: Basophils # 0.1 K/mcL (0.0-0.2); Basophils % 0.5 %; Eosinophils # 0.5 K/mcL (0.0-0.6); Eosinophils % 3.6 %; Hematocrit 34.8 % (37.5-50.1); Hemoglobin 10.9 g/dL (12.9-16.9); Immature Granulocytes % 0.5 % (0-4); Lymphocytes # 1.2 K/mcL (0.6-4.6); Lymphocytes % 9.1 %; Mean Corpuscular HGB Conc 31.3 g/dL (31.6-35.5); Mean Corpuscular Hemoglobin 28.7 pg (28.0-33.3); Mean Corpuscular Volume 91.6 fL (83.0-100.0); Monocytes # 0.5 K/mcL (0.0-1.3); Monocytes % 3.9 %; Neutrophils # 10.6 K/mcL (1.6-8.9); Platelet Count 183 K/mcL (140-400); Red Cell Distribution Width 17.4 % (11.5-14.5); Segmented Neutrophils % 82.4 %
[2017-02-20 03:59] LABS: Ionized Calcium 1.34 mmol/L (1.15-1.35)
[2017-02-20 04:07] LABS: BUN/Creatinine Ratio 32 (6-26); Blood Urea Nitrogen 31 mg/dL (8-26); Calcium 8.4 mg/dL (8.6-10.8); Carbon Dioxide 24 mEq/L (19-29); Chloride 117 mEq/L (98-109); Glucose 154 mg/dL (70-99); Magnesium 2.1 mg/dL (1.6-2.6); Osmolality,Calculated 310 (280-300); Potassium 3.8 mEq/L (3.5-4.5); Sodium 145 mEq/L (136-145); eGFR For African Americans > 60 (> 60); eGFR For Non-African Americans > 60 (> 60)
[2017-02-20 04:40] LABS: ABG Base Excess 3.3 mEq/L (-2.0 to 3.0); ABG HCO3 28.5 mEQ/L (21-27); ABG Oxygen Saturation 95 % (95-98); ABG PCO2 45 mmHg (35-45); ABG PH 7.41 pH Units (7.32-7.45); ABG PO2 75 mmHg (85-104); ABG TCO2 29.9 mEq/L (20-26)
[2017-02-20 04:41] LABS: Blood Gas FiO2 30 %
[2017-02-20] MEDS: Piperacillin/Tazobactam 3.375 GM in D5% in Water (Mini-Bag+) 100 ML IVPB SCH ×3 (05:05→20:09)
[2017-02-20] MEDS: Potassium Chloride 40 MEQ/200 ML BAG IVPB PRN (05:06)
[2017-02-20] MEDS: Pantoprazole 40 MG VIAL IVP SCH ×2 (05:11→17:01)
[2017-02-20] MEDS: Insulin LISPRO 300 UNITS/3 ML VIAL SQ SCH ×4 (05:18→23:10)
[2017-02-20] MEDS: Dexmedetomidine HCl 400 MCG/100 ML MLS IVC SCH ×3 (08:03→23:44)
[2017-02-20] MEDS: Chlorhexidine Rinse 15 ML MOUTHWASH MM SCH (08:04)
[2017-02-20] MEDS: Lactobacillus 1 EACH CAP.SPRINK PO SCH (08:04)
--- NOTE | 2017-02-20 08:05 | Pulmonology Progress Note ---
<Carmelo Parker - Last Filed: 02/20/17 09:11> Date of Encounter: 02/20/17 Time of Encounter: 08:00 Assessment and Plan (1) Shock Current Visit: Yes Status: Resolved likely multifactorial in nature in setting of septic shock with group A strep bacteremia, hemorrhagic/hypovolemic shock, complicated by cardiomyopathy with EF 20-25% EGD from 02/08/17 showed 4cm bleeding duodenal ulcer, had clip placed and injection with epinephrine. repeat EGD on 02/15 showed same bleeding duodenal ulcer, which was cauterized. repeat EGD on 02/15 showed no bleeding. in total, patient received 18 units PRBCs, 5 units of plasma, 2 units platelets. bleeding scan was negative for active bleeding. Plan: will monitor H/H, transfuse blood as needed protonix BID appreciate GI recommendations. appreciate surgery recs. continue with zosyn for total of 14 days. continue tube feeds. Appreciate podiatry recommendations-likely right ankle joint aspiration today. (2) Sepsis Current Visit: Yes Status: Acute Septic shock likely secondary to cellulitis on lower extremities. CT RLE showed severe diffuse b/l LE Subcu fat stranding and skin thickening, no drainable fluid collection, no osseous abnormality, no gas. CT left lower extremity showed no osseous abnormality, no focal gas. Blood cultures showed group A strep, repeat blood cultures negative. wound cultures showed providencia rettgeri, group A strep, staph aureus repeat blood cultures showed no growth. Plan: continue zosyn for total of 14 days- WBC trending down. Qualifiers: Sepsis type: sepsis due to unspecified organism Qualified Code(s): A41.9 - Sepsis, unspecified organism (3) Anemia Current Visit: Yes Status: Acute plan as #1 above currently stable. Qualifiers: Anemia type: iron deficiency Iron deficiency anemia type: chronic blood loss Qualified Code(s): D50.0 - Iron deficiency anemia secondary to blood loss (chronic) (4) Acute respiratory failure with hypoxia and hypercapnia Current Visit: Yes Status: Acute CPAP trial today. if stable will extubate. (5) SAGE (acute kidney injury) Current Visit: Yes Status: Resolved resolved. (6) Cardiomyopathy Current Visit: Yes Status: Acute Echo from 02/06/17 showed LVEF 20-25%, severe global LV systolic dysfunction, mild concentric LVH, severely dilated Left atrium, no pulmonary HTN, severely dialted right atrium, diastolic dysfunction. he has no prior echo to compare, but had a stress test in 2009 with gated EF 58% elevated troponin levels, trended down, likely secondary to sepsis but ischemic cause cannot be ruled out. patient was evaluated by cardio, they recommend [facility] during stay to evaluate for possible ischemic cardiomyopathy if clinical course allows. Cardiology has Recommend medical management for now. according to tele, he has multiple episodes of ectopy Plan: amiodarone gtt discontinued. will re start beta randolph after patient is off pressors for at least 24 hours. Qualifiers: Cardiomyopathy type: unspecified Qualified Code(s): I42.9 - Cardiomyopathy , unspecified (7) Pacemaker Current Visit: Yes Status: Acute patient has dual chamber pacemaker in place, last interrogated in 2014. (8) Acute systolic heart failure Current Visit: Yes Status: Acute BNP 2958 Echo showed EF 20-25% with severe global LV systolic dysfunction. Upon initial presentation, he was fluid overloaded. initial CXR showed trace pleural effusions. plan: resumed lasix today. strict I/O, daily weights. (9) A-fib Current Visit: Yes Status: Chronic per cardio records, patient was unaware of Afib, but he had Afib on his previous device checks. CHAds/vasc: 6 (age, CHF, HTN, CAD, DM) no anticoagulation at this time due to GI bleed. Qualifiers: Atrial fibrillation type: chronic Qualified Code(s): I48.2 - Chronic atrial fibrillation (10) CAD (coronary artery disease) Current Visit: Yes Status: Chronic per prior notes, patient has hx of 4 stents, this information needs to be verified with family. Qualifiers: Coronary Disease-Associated Artery/Lesion type: [place] artery [place] vs. transplanted heart: [place] heart Associated angina: without angina Qualified Code(s): I25.10 - Atherosclerotic heart disease of [place] coronary artery without angina pectoris (11) Diabetes mellitus Current Visit: Yes Status: Chronic A1C 6.9 continue low dose sliding scale insulin. Qualifiers: Diabetes mellitus type: type 2 Diabetes mellitus complication status: with unspecified complications Diabetes mellitus intermediate insulin use: without intermediate use Qualified Code(s): E11.8 - Type 2 diabetes mellitus with unspecified complications (12) DVT prophylaxis Current Visit: Yes Status: Acute cannot do EPCDs because of bilateral lower extremity cellulitis, will hold off for now. cannot do heparin due to GI bleed. Neuro/sedation: sedated on precedex and fentanyl. pulm: acute hypoxic respiratory failure, likely multifactorial secondary to shock, cardiomyopathy, volume overload. patient is intubated. CXR shows volume overload. continue lasix. cardio: cardiomyopathy with EF 20-25%. Cardio recommended ischemic eval when stable. Noticed frequent ectopy, amiodarone gtt discontinued. re start beta randolph when patient has been off levophed for at least 24 hours. GI/FLuids/electrolytes: IV protonix BID, carafate. S/p repeat EGD showing no repeat bleeding. fluid overloaded. renal: resolved SAGE ID: sepsis secondary to bilateral lower extremity cellulitis. wound cultures grew providencia rettgeri, strep pyogenes, staph aureus. appreciate ID recommendations. repeat blood cultures showed no growth. continue zosyn for total of 14 days (stop date already entered). Heme/onc: shock (hemorrhagic, hypovolemic, cardiogenic), currently requiring levophed. repeat H/H and monitor. Endo: LDSSI. Subjective Principal diagnosis: GI bleed, Sepsis, acute systolic CHF. Interval history: 77 year old male evaluated at bedside. There were no elements overnight. Patient has sedated and resting comfortably. Objective PUL Vital signs: Last Vital Signs Temp 97.7 F 02/20/17 04:00 Pulse 64 02/20/17 07:48 Resp 24 02/20/17 07:48 BP 120/65 02/20/17 07:00 Pulse Ox 99 02/20/17 07:48 General appearance: other (sedated on ventilator. ) Eyes: nonicteric ENT: oropharynx dry Neck: supple, no JVD Auscultation: bilateral: clear Cardiovascular: PVC's noted Gastrointestinal: hypoactive bowel sounds, soft, tender Integumentary: cellulitis (bilateral lower extremity cellulitis. ), other ( penis is extremely swollen. ) Extremities: edema (right second toe appears necrotic), other (bilateral lower extremity cellulitis. ) unable to assess due to mental status (patient is sedated. ) Ventilator Settings Ventilator Settings: Ventilator Settings, Last 8 Hours Ventilator Mode CPAP Ventilator Mode CPAP Ventilator Mode CPAP Ventilator Mode VC+ Ventilator Mode VC+ Ventilator Mode VC+ Ventilator Mode VC+ Ventilator Mode VC+ Ventilator Mode VC+ Ventilator Mode VC+ Ventilator Mode VC+ Ventilator Mode VC+ Ventilator Tidal Volume 550 Setting Ventilator Tidal Volume 550 Setting Ventilator Tidal Volume 550 Setting Ventilator Tidal Volume 550 Setting Ventilator Tidal Volume 550 Setting Ventilator Tidal Volume 550 Setting Ventilator Tidal Volume 550 Setting Ventilator Tidal Volume 550 Setting Ventilator Tidal Volume 550 Setting Ventilator Tidal Volume 550 Setting Ventilator Respiratory Rate 12 Setting Ventilator Respiratory Rate 12 Setting Ventilator Respiratory Rate 12 Setting Ventilator Respiratory Rate 12 Setting Ventilator Respiratory Rate 12 Setting Ventilator Respiratory Rate 12 Setting Ventilator Respiratory Rate 12 Setting Ventilator Respiratory Rate 12 Setting Ventilator Respiratory Rate 12 Setting Ventilator Respiratory Rate 12 Setting Actual Respiratory Rate 12 Actual Respiratory Rate 32 Actual Respiratory Rate 18 Actual Respiratory Rate 16 Actual Respiratory Rate 13 Actual Respiratory Rate 15 Actual Respiratory Rate 19 Actual Respiratory Rate 15 Actual Respiratory Rate 18 Actual Respiratory Rate 14 Actual Respiratory Rate 15 Positive End Expiratory 5 Pressure Positive End Expiratory 5 Pressure Positive End Expiratory 5 Pressure Positive End Expiratory 5 Pressure Positive End Expiratory 5 Pressure Positive End Expiratory 5 Pressure Positive End Expiratory 5 Pressure Positive End Expiratory 5 Pressure Positive End Expiratory 5 Pressure Positive End Expiratory 5 Pressure Positive End Expiratory 5 Pressure Positive End Expiratory 5 Pressure Peak Inspiratory Airway 15 Pressure Peak Inspiratory Airway 15 Pressure Peak Inspiratory Airway 15 Pressure Peak Inspiratory Airway 23 Pressure Peak Inspiratory Airway 22 Pressure Peak Inspiratory Airway 27 Pressure Peak Inspiratory Airway 23 Pressure Peak Inspiratory Airway 24 Pressure Peak Inspiratory Airway 32 Pressure Peak Inspiratory Airway 29 Pressure Peak Inspiratory Airway 31 Pressure Results - Laboratory Findings CBC and BMP: 02/20/17 03:45 02/20/17 03:45 ABG ABG pH 7.41 pH Units (7.32-7.45) 02/20/17 04:30 ABG pCO2 45 mmHg (35-45) 02/20/17 04:30 ABG pO2 75 mmHg (85-104) L 02/20/17 04:30 ABG O2 Saturation 95 % (95-98) 02/20/17 04:30 PT/INR, D-dimer PT 16.3 Seconds (9.4-12.1) H 02/16/17 01:38 Abnormal lab findings: Abnormal lab results WBC 12.9 K/mcL (4.3-11.1) H 02/20/17 03:45 RBC 3.80 M/mcL (4.19-5.50) L 02/20/17 03:45 Hgb 10.9 g/dL (12.9-16.9) L 02/20/17 03:45 Hct 34.8 % (37.5-50.1) L 02/20/17 03:45 MCHC 31.3 g/dL (31.6-35.5) L 02/20/17 03:45 RDW 17.4 % (11.5-14.5) H 02/20/17 03:45 Metamyelocytes % 2.0 % (0) H 02/12/17 03:00 Myelocytes % 2.0 % (0) H 02/10/17 07:15 Promyelocytes % 2.0 % (0) H 02/09/17 16:16 Neutrophils # 10.6 K/mcL (1.6-8.9) H 02/20/17 03:45 Nucleated RBCs/100 WBC 0.1 /100 WBC (0) H 02/17/17 21:58 Reactive Lymphocytes Present (Not Present) A 02/13/17 03:00 Platelet Estimate Slight Decrease (Normal) L 02/13/17 03:00 Large Platelets Present (Not Present) A 02/13/17 03:00 Polychromasia 1+ (Not Present) A 02/13/17 03:00 Hypochromasia Present (Not Present) A 02/10/17 03:10 Poikilocytosis 1+ (Not Present) A 02/11/17 05:25 Anisocytosis 1+ (Not Present) A 02/13/17 03:00 Microcytosis Present (Not Present) A 02/12/17 03:00 Macrocytosis Present (Not Present) A 02/12/17 03:00 Target Cells 1+ (Not Present) A 02/13/17 03:00 ESR 61 mm/hr (0-10) H 02/15/17 16:45 PT 16.3 Seconds (9.4-12.1) H 02/16/17 01:38 APTT 40.8 Seconds (26.0-36.0) H 02/08/17 00:45 ABG pO2 75 mmHg (85-104) L 02/20/17 04:30 ABG HCO3 28.5 mEQ/L (21-27) H 02/20/17 04:30 ABG Total CO2 29.9 mEq/L (20-26) H 02/20/17 04:30 ABG Base Excess 3.3 mEq/L (-2.0 to 3.0) H 02/20/17 04:30 Chloride 117 mEq/L (98-109) H 02/20/17 03:45 BUN 31 mg/dL (8-26) H 02/20/17 03:45 BUN/Creatinine Ratio 32 (6-26) H 02/20/17 03:45 Glucose 154 mg/dL (70-99) H 02/20/17 03:45 POC Glucose 125 (58-89) H 02/20/17 05:16 Hemoglobin A1c 6.9 % (-5.6) H 02/06/17 06:18 Calculated Osmolality 310 (280-300) H 02/20/17 03:45 Calcium 8.4 mg/dL (8.6-10.8) L 02/20/17 03:45 Iron 54 mcg/dL (65-175) L 02/08/17 06:39 Transferrin 146 mg/dL (174-364) L 02/08/17 06:39 Ferritin 808 ng/ml (22-275) H 02/08/17 06:39 Total Bilirubin 4.3 mg/dL (0.2-1.2) H 02/16/17 01:38 Direct Bilirubin 3.2 mg/dL (0.0-0.5) H 02/16/17 01:38 AST 66 Units/L (5-34) H 02/16/17 01:38 Troponin I 0.24 ng/mL (0-0.03) H* 02/06/17 18:39 C-Reactive Protein 84 mg/L (Less than 5) H 02/15/17 16:45 B-Natriuretic Peptide 2958 pg/mL (0-100) H 02/05/17 23:05 Serum Total Protein 4.0 g/dL (6.0-8.3) L D 02/16/17 01:38 Total Protein (PEP) 5.10 g/dL (6.00-8.30) L 02/08/17 06:39 Albumin 1.2 g/dL (3.5-5.0) L 02/16/17 01:38 Albumin (PEP) 2.16 g/dL (3.75-5.01) L 02/08/17 06:39 Albumin/Globulin Ratio 0.4 (1.1-2.2) L 02/16/17 01:38 Htied-2-Fkfzjshda 0.53 g/dL (0.19-0.46) H 02/08/17 06:39 HDL Cholesterol 16 mg/dL (40-59) L 02/06/17 06:18 Cholesterol/HDL Ratio 6.7 (0-4.9) H 02/06/17 06:18 Vitamin B12 1850 pg/mL (213-816) H 02/08/17 06:39 25-OH Vitamin D Total 15 ng/mL (30-80) L 02/08/17 06:39 Folate 6.4 ng/mL (7.0-31.4) L 02/08/17 06:39 Procalcitonin 0.95 ng/mL (<=0.10) H 02/15/17 18:30 Urine Clarity Cloudy (Clear) A 02/11/17 08:54 Urine Blood Moderate (Negative) H 02/11/17 08:54 Urine Bilirubin Small (Negative) H 02/11/17 08:54 Ur Leukocyte Esterase Trace (Negative) H 02/11/17 08:54 Ur Squamous Epith Cells Moderate per lpf (None-Few) H 02/11/17 08:54 Ur Culture Indicated? YES (NO) A 02/11/17 08:54 Microalb/Creat Ratio 65 (0-30) H 02/07/17 15:26 Protein/Creatinin Ratio 0.41 mg/mg (0-0.20) H 02/07/17 15:26 Urine Total Protein 65 mg/dL (1-14) H 02/07/17 15:26 Streptococcus sp PCR DETECTED (Not Detect) A 02/05/17 23:06 Group A Strep DNA DETECTED (Not Detect) A 02/05/17 23:06 - Clinical Findings Intake & Output: Intake & Output 02/19/17 02/20/17 02/20/17 23:59 07:59 15:59 Intake Total 425.5 / 425.5 988 / 988 Output Total 175 / 175 525 / 525 Balance 250.5 / 250.5 463 / 463 Weight 130.9 kg Consult Discharge Plan - Plan Referrals: Baker,Yasmani Martin MD [Non-Partnered Physician] - (OFFICE WILL NOT MAKE A FOLLOW UP APPOINTMENT FOR THIS PATIENT UNITL WE HAVE A DISCHARGE ORDER) <Saadlla,Haval M - Last Filed: 02/20/17 15:40> Date of Encounter: 02/20/17 Objective PUL Vital signs: Last Vital Signs Temp 97.4 F L 02/20/17 07:00 Pulse 74 02/20/17 10:00 Resp 16 02/20/17 10:00 BP 114/61 02/20/17 10:00 Pulse Ox 99 02/20/17 10:00 Ventilator Settings Ventilator Settings: Ventilator Settings, Last 8 Hours Ventilator Mode CPAP Ventilator Mode CPAP Ventilator Mode CPAP Ventilator Mode CPAP Ventilator Mode VC+ Ventilator Mode VC+ Ventilator Mode VC+ Ventilator Mode VC+ Ventilator Mode VC+ Ventilator Mode VC+ Ventilator Tidal Volume 550 Setting Ventilator Tidal Volume 550 Setting Ventilator Tidal Volume 550 Setting Ventilator Tidal Volume 550 Setting Ventilator Tidal Volume 550 Setting Ventilator Tidal Volume 550 Setting Ventilator Tidal Volume 550 Setting Ventilator Respiratory Rate 12 Setting Ventilator Respiratory Rate 12 Setting Ventilator Respiratory Rate 12 Setting Ventilator Respiratory Rate 12 Setting Ventilator Respiratory Rate 12 Setting Ventilator Respiratory Rate 12 Setting Ventilator Respiratory Rate 12 Setting Actual Respiratory Rate 27 Actual Respiratory Rate 12 Actual Respiratory Rate 32 Actual Respiratory Rate 18 Actual Respiratory Rate 16 Actual Respiratory Rate 13 Actual Respiratory Rate 15 Actual Respiratory Rate 19 Actual Respiratory Rate 15 Positive End Expiratory 5 Pressure Positive End Expiratory 5 Pressure Positive End Expiratory 5 Pressure Positive End Expiratory 5 Pressure Positive End Expiratory 5 Pressure Positive End Expiratory 5 Pressure Positive End Expiratory 5 Pressure Positive End Expiratory 5 Pressure Positive End Expiratory 5 Pressure Positive End Expiratory 5 Pressure Peak Inspiratory Airway 16 Pressure Peak Inspiratory Airway 15 Pressure Peak Inspiratory Airway 15 Pressure Peak Inspiratory Airway 15 Pressure Peak Inspiratory Airway 23 Pressure Peak Inspiratory Airway 22 Pressure Peak Inspiratory Airway 27 Pressure Peak Inspiratory Airway 23 Pressure Peak Inspiratory Airway 24 Pressure Results - Laboratory Findings CBC and BMP: 02/20/17 03:45 02/20/17 11:40 ABG ABG pH 7.41 pH Units (7.32-7.45) 02/20/17 04:30 ABG pCO2 45 mmHg (35-45) 02/20/17 04:30 ABG pO2 75 mmHg (85-104) L 02/20/17 04:30 ABG O2 Saturation 95 % (95-98) 02/20/17 04:30 PT/INR, D-dimer PT 16.3 Seconds (9.4-12.1) H 02/16/17 01:38 Abnormal lab findings: Abnormal lab results WBC 12.9 K/mcL (4.3-11.1) H 02/20/17 03:45 RBC 3.80 M/mcL (4.19-5.50) L 02/20/17 03:45 Hgb 10.9 g/dL (12.9-16.9) L 02/20/17 03:45 Hct 34.8 % (37.5-50.1) L 02/20/17 03:45 MCHC 31.3 g/dL (31.6-35.5) L 02/20/17 03:45 RDW 17.4 % (11.5-14.5) H 02/20/17 03:45 Metamyelocytes % 2.0 % (0) H 02/12/17 03:00 Myelocytes % 2.0 % (0) H 02/10/17 07:15 Promyelocytes % 2.0 % (0) H 02/09/17 16:16 Neutrophils # 10.6 K/mcL (1.6-8.9) H 02/20/17 03:45 Nucleated RBCs/100 WBC 0.1 /100 WBC (0) H 02/17/17 21:58 Reactive Lymphocytes Present (Not Present) A 02/13/17 03:00 Platelet Estimate Slight Decrease (Normal) L 02/13/17 03:00 Large Platelets Present (Not Present) A 02/13/17 03:00 Polychromasia 1+ (Not Present) A 02/13/17 03:00 Hypochromasia Present (Not Present) A 02/10/17 03:10 Poikilocytosis 1+ (Not Present) A 02/11/17 05:25 Anisocytosis 1+ (Not Present) A 02/13/17 03:00 Microcytosis Present (Not Present) A 02/12/17 03:00 Macrocytosis Present (Not Present) A 02/12/17 03:00 Target Cells 1+ (Not Present) A 02/13/17 03:00 ESR 61 mm/hr (0-10) H 02/15/17 16:45 PT 16.3 Seconds (9.4-12.1) H 02/16/17 01:38 APTT 40.8 Seconds (26.0-36.0) H 02/08/17 00:45 ABG pO2 75 mmHg (85-104) L 02/20/17 04:30 ABG HCO3 28.5 mEQ/L (21-27) H 02/20/17 04:30 ABG Total CO2 29.9 mEq/L (20-26) H 02/20/17 04:30 ABG Base Excess 3.3 mEq/L (-2.0 to 3.0) H 02/20/17 04:30 Chloride 117 mEq/L (98-109) H 02/20/17 03:45 BUN 31 mg/dL (8-26) H 02/20/17 03:45 BUN/Creatinine Ratio 32 (6-26) H 02/20/17 03:45 Glucose 154 mg/dL (70-99) H 02/20/17 03:45 POC Glucose 125 (58-89) H 02/20/17 05:16 Hemoglobin A1c 6.9 % (-5.6) H 02/06/17 06:18 Calculated Osmolality 310 (280-300) H 02/20/17 03:45 Calcium 8.4 mg/dL (8.6-10.8) L 02/20/17 03:45 Iron 54 mcg/dL (65-175) L 02/08/17 06:39 Transferrin 146 mg/dL (174-364) L 02/08/17 06:39 Ferritin 808 ng/ml (22-275) H 02/08/17 06:39 Total Bilirubin 4.3 mg/dL (0.2-1.2) H 02/16/17 01:38 Direct Bilirubin 3.2 mg/dL (0.0-0.5) H 02/16/17 01:38 AST 66 Units/L (5-34) H 02/16/17 01:38 Troponin I 0.24 ng/mL (0-0.03) H* 02/06/17 18:39 C-Reactive Protein 84 mg/L (Less than 5) H 02/15/17 16:45 B-Natriuretic Peptide 2958 pg/mL (0-100) H 02/05/17 23:05 Serum Total Protein 4.0 g/dL (6.0-8.3) L D 02/16/17 01:38 Total Protein (PEP) 5.10 g/dL (6.00-8.30) L 02/08/17 06:39 Albumin 1.2 g/dL (3.5-5.0) L 02/16/17 01:38 Albumin (PEP) 2.16 g/dL (3.75-5.01) L 02/08/17 06:39 Albumin/Globulin Ratio 0.4 (1.1-2.2) L 02/16/17 01:38 Rpbcj-1-Xlcveeuuf 0.53 g/dL (0.19-0.46) H 02/08/17 06:39 HDL Cholesterol 16 mg/dL (40-59) L 02/06/17 06:18 Cholesterol/HDL Ratio 6.7 (0-4.9) H 02/06/17 06:18 Vitamin B12 1850 pg/mL (213-816) H 02/08/17 06:39 25-OH Vitamin D Total 15 ng/mL (30-80) L 02/08/17 06:39 Folate 6.4 ng/mL (7.0-31.4) L 02/08/17 06:39 Procalcitonin 0.95 ng/mL (<=0.10) H 02/15/17 18:30 Urine Clarity Cloudy (Clear) A 02/11/17 08:54 Urine Blood Moderate (Negative) H 02/11/17 08:54 Urine Bilirubin Small (Negative) H 02/11/17 08:54 Ur Leukocyte Esterase Trace (Negative) H 02/11/17 08:54 Ur Squamous Epith Cells Moderate per lpf (None-Few) H 02/11/17 08:54 Ur Culture Indicated? YES (NO) A 02/11/17 08:54 Microalb/Creat Ratio 65 (0-30) H 02/07/17 15:26 Protein/Creatinin Ratio 0.41 mg/mg (0-0.20) H 02/07/17 15:26 Urine Total Protein 65 mg/dL (1-14) H 02/07/17 15:26 Streptococcus sp PCR DETECTED (Not Detect) A 02/05/17 23:06 Group A Strep DNA DETECTED (Not Detect) A 02/05/17 23:06 - Clinical Findings Intake & Output: Intake & Output 02/19/17 02/20/17 02/20/17 23:59 07:59 15:59 Intake Total 425.5 / 425.5 988 / 988 124 / 124 Output Total 175 / 175 525 / 525 Balance 250.5 / 250.5 463 / 463 124 / 124 Weight 130.9 kg - Attending Attestation I examined this patient and my medical decision-making was reviewed with the [employer]/PA/Advanced Practice Nurse/Resident Physician. I agree with the documented findings, disposition and treatment plan as described except to the extent set forth below. Patient seen and examined. Labs, radiology, chart personally reviewed. Agree with resident's history and physical, assessment, plan with following comments: [employer]: Patient follows commands, Pulmonary: Acceptable oxygenation and ventilation and patient was extubated successfully. I am still concerned about the patient overall condition may lead him to be invasive mechanical ventilation. Cardiovascular: stable. CHF treatment, should patient remain stable. Amiodarone for 24 hours and can be changed to oral. GI: Nutrition per dietary and GI prophylaxis per routine Heme: DVT prophylaxis per routine ID: Continue antibiotics and plan to de-escalation Renal; urine out put and renal funtion reviewed Endorcine: blood glucose is monitored Lines: all lines checked and no evidence of infections Skin: skin care to prevent pressure ulcers per nursing routine care Poor prognosis and CODE STATUS was changed. Palliative care is following. Change status to step down.
[2017-02-20] MEDS: Norepinephrine 4 MG in D5% in Water 250 ML IVC SCH ×3 (11:47→19:26)
[2017-02-20] MEDS ORDERED: Amiodarone Premix 360 MG/200 ML BAG IVC ONE ×2 (11:53→11:54)
[2017-02-20] MEDS ORDERED: Amiodarone Premix 360 MG/200 ML BAG IVC SCH (12:00)
--- NOTE | 2017-02-20 15:49 | Event Note ---
<Carmelo Parker - Last Filed: 02/20/17 15:45> Date of Encounter: 02/20/17 Time of Encounter: 13:00 Had long discussion with patient's daughter Patricia ([email or web address]) regarding goals of care and code status. She was made aware that overall, this patient's prognosis is very poor. She was also made aware that patient will likely need 24 hour constant care if he is healthy enough to be discharged from hospital. I discussed with her the risks, benefits of coding the patient if he were to go into cardiac arrest. Patient's daughter displayed understand. Patricia asked patient multiple times if he would want to have chest compressions done and he repeatedly answered "no." She also asked him if he would like to be re- intubated and he replied "no, please stop." patient appeared to be in a significant amount of pain. Code status changed to DNRCCA/DNI. He is now a 2N overflow patient. Attending physician made aware and agrees with this plan. <Mynor Stover - Last Filed: 02/20/17 16:42> Date of Encounter: 02/20/17 Patient prognosis is very poor and his CODE STATUS was changed after extubation. Power of district attorney is daughter made this decision. I believe it is appropriate due to his multiple comorbidities. Palliative care has already seen the patient.
[2017-02-20] MEDS: Furosemide 40 MG/4 ML VIAL IVP SCH (16:46)
[2017-02-20] MEDS ORDERED: Ondansetron 4 MG/2 ML VIAL IVP PRN (18:16)
[2017-02-20] MEDS ORDERED: *HR* Dextrose 50 % in Water (Syg) 50 ML SYRINGE IVP PRN (18:16)
[2017-02-20] MEDS ORDERED: Potassium Phosphate 44 MEQ in 0.9 % Sodium Chloride 250 ML IVPB PRN (18:16)
[2017-02-20] MEDS ORDERED: Naloxone 0.4 MG/ML INJ IVP PRN (18:16)
[2017-02-20] MEDS ORDERED: *HR* FentaNYL (PF) 100 MCG/2 ML VIAL IVP PRN (18:16)
[2017-02-20] MEDS ORDERED: D5% in Water 1,000 ML IVC PRN (18:16)
[2017-02-20] MEDS ORDERED: Chloraseptic Spray 177 ML BOTTLE MM PRN (18:16)
[2017-02-20] MEDS ORDERED: Calcium Gluconate 1,000 MG in D5% in Water 100 ML IVPB PRN (18:16)
[2017-02-20] MEDS ORDERED: Dextrose Gel 15 GM PO PRN ×2 (18:16)
[2017-02-20] MEDS: Amiodarone Premix 360 MG/200 ML BAG IVC SCH (19:26)
[2017-02-20] MEDS: *HR* HYDROmorphone (PF) 1 MG/ML SYRINGE IVP PRN (23:46)
[2017-02-21] MEDS: Amiodarone Premix 360 MG/200 ML BAG IVC SCH ×3 (01:18→23:30)
[2017-02-21 03:28] LABS: Basophils # 0.1 K/mcL (0.0-0.2); Basophils % 0.7 %; Eosinophils # 0.3 K/mcL (0.0-0.6); Eosinophils % 2.4 %; Hematocrit 35.2 % (37.5-50.1); Hemoglobin 11.1 g/dL (12.9-16.9); Immature Granulocytes % 0.5 % (0-4); Immature Platelets 4.7 % (1.1-6.1); Lymphocytes # 1.5 K/mcL (0.6-4.6); Lymphocytes % 11.6 %; Mean Corpuscular HGB Conc 31.5 g/dL (31.6-35.5); Mean Corpuscular Hemoglobin 29.1 pg (28.0-33.3); Mean Corpuscular Volume 92.4 fL (83.0-100.0); Mean Platelet Volume 10.7 fL (9.4-12.4); Monocytes # 0.6 K/mcL (0.0-1.3); Monocytes % 4.7 %; Neutrophils # 10.1 K/mcL (1.6-8.9); Platelet Count 204 K/mcL (140-400); Red Blood Count 3.81 M/mcL (4.19-5.50); Red Cell Distribution Width 17.5 % (11.5-14.5); Segmented Neutrophils % 80.1 %
[2017-02-21 03:42] LABS: BUN/Creatinine Ratio 29 (6-26); Blood Urea Nitrogen 27 mg/dL (8-26); Calcium 8.9 mg/dL (8.6-10.8); Carbon Dioxide 26 mEq/L (19-29); Chloride 116 mEq/L (98-109); Glucose 111 mg/dL (70-99); Magnesium 1.7 mg/dL (1.6-2.6); Osmolality,Calculated 312 (280-300); Phosphorous 3.9 mg/dL (2.3-4.7); Potassium 3.9 mEq/L (3.5-4.5); Sodium 148 mEq/L (136-145); eGFR For African Americans > 60 (> 60); eGFR For Non-African Americans > 60 (> 60)
[2017-02-21] MEDS: Piperacillin/Tazobactam 3.375 GM in D5% in Water (Mini-Bag+) 100 ML IVPB SCH ×3 (03:44→20:49)
[2017-02-21 03:56] LABS: Ionized Calcium 1.32 mmol/L (1.15-1.35)
[2017-02-21] MEDS: Potassium Chloride 40 MEQ/200 ML BAG IVPB PRN ×2 (04:01→18:22)
[2017-02-21] MEDS: Magnesium Sulfate 2 GM in D5% in Water 100 ML IVPB PRN ×2 (04:23→18:25)
[2017-02-21] MEDS: Insulin LISPRO 300 UNITS/3 ML VIAL SQ SCH ×4 (05:05→20:49)
[2017-02-21] MEDS: Pantoprazole 40 MG VIAL IVP SCH ×2 (05:05→18:18)
[2017-02-21] MEDS: Lactobacillus 1 EACH CAP.SPRINK PO SCH (08:14)
[2017-02-21] MEDS: Furosemide 40 MG/4 ML VIAL IVP SCH ×2 (08:18→16:49)
--- NOTE | 2017-02-21 09:08 | Pulmonology Progress Note ---
<Melonie Mireles - Last Filed: 02/21/17 11:55> Date of Encounter: 02/21/17 Time of Encounter: 09:31 Assessment and Plan (1) Shock Current Visit: Yes Status: Resolved likely multifactorial in nature in setting of septic shock with group A strep bacteremia, hemorrhagic/hypovolemic shock, complicated by cardiomyopathy with EF 20-25% EGD from 02/08/17 showed 4cm bleeding duodenal ulcer, had clip placed and injection with epinephrine. repeat EGD on 02/15 showed same bleeding duodenal ulcer, which was cauterized. repeat EGD on 02/15 showed no bleeding. in total, patient received 18 units PRBCs, 5 units of plasma, 2 units platelets. bleeding scan was negative for active bleeding. Plan: Zosyn day #12, continue for total of 14 days will monitor H/H, transfuse blood as needed protonix BID appreciate GI recommendations. appreciate surgery recommendations Appreciate podiatry recommendations (2) Sepsis Current Visit: Yes Status: Acute Septic shock likely secondary to cellulitis on lower extremities. CT RLE showed severe diffuse b/l LE Subcu fat stranding and skin thickening, no drainable fluid collection, no osseous abnormality, no gas. CT left lower extremity showed no osseous abnormality, no focal gas. Blood cultures showed group A strep, repeat blood cultures negative. wound cultures showed providencia rettgeri, group A strep, staph aureus repeat blood cultures showed no growth. Zosyn Day #12 Plan: continue zosyn for total of 14 days- WBC trending down. Qualifiers: Sepsis type: sepsis due to unspecified organism Qualified Code(s): A41.9 - Sepsis, unspecified organism (3) Acute respiratory failure with hypoxia and hypercapnia Current Visit: Yes Status: Acute Patient was extubated yesterday, remains on 4L O2 NC Plan: -Continue to monitor and wean as able (4) SAGE (acute kidney injury) Current Visit: Yes Status: Resolved Resolved (5) Anemia Current Visit: Yes Status: Acute Stable. H/H 11.1/35.2 Qualifiers: Anemia type: iron deficiency Iron deficiency anemia type: chronic blood loss Qualified Code(s): D50.0 - Iron deficiency anemia secondary to blood loss (chronic) (6) Duodenal ulcer Current Visit: Yes Status: Acute (7) A-fib Current Visit: Yes Status: Chronic Qualifiers: Atrial fibrillation type: chronic Qualified Code(s): I48.2 - Chronic atrial fibrillation (8) Acute systolic heart failure Current Visit: Yes Status: Acute BNP 2958 Echo showed EF 20-25% with severe global LV systolic dysfunction. Upon initial presentation, he was fluid overloaded. initial CXR showed trace pleural effusions. Plan: -Continue lasix today. -strict I/O, daily weights. (9) CAD (coronary artery disease) Current Visit: Yes Status: Chronic Qualifiers: Coronary Disease-Associated Artery/Lesion type: [place] artery [place] vs. transplanted heart: [place] heart Associated angina: without angina Qualified Code(s): I25.10 - Atherosclerotic heart disease of [place] coronary artery without angina pectoris (10) Cardiomyopathy Current Visit: Yes Status: Acute Echo from 02/06/17 showed LVEF 20-25%, severe global LV systolic dysfunction, mild concentric LVH, severely dilated Left atrium, no pulmonary HTN, severely dialted right atrium, diastolic dysfunction. he has no prior echo to compare, but had a stress test in 2009 with gated EF 58% Qualifiers: Cardiomyopathy type: unspecified Qualified Code(s): I42.9 - Cardiomyopathy , unspecified (11) Diabetes mellitus Current Visit: Yes Status: Chronic Hgb A1C 6.9 Plan: -continue accuchecks -continue low dose SS insulin Qualifiers: Diabetes mellitus type: type 2 Diabetes mellitus complication status: with unspecified complications Diabetes mellitus fpc insulin use: without terminal supervisor use Qualified Code(s): E11.8 - Type 2 diabetes mellitus with unspecified complications (12) Pacemaker Current Visit: Yes Status: Acute patient has dual chamber pacemaker in place, last interrogated in 2014. (13) DVT prophylaxis Current Visit: Yes Status: Acute cannot do EPCDs because of bilateral lower extremity cellulitis, will hold off for now. cannot do heparin due to GI bleed. Neuro/sedation:Patient oriented to self, not to place, time or situation. Speech evaluation today. Continue to monitor and anticipate continued progress towards patient's baseline. pulm: acute hypoxic respiratory failure, likely multifactorial secondary to shock, cardiomyopathy, volume overload. patient extubated yesterday, oxygen saturation >92% on 4L NC. Wean oxygen as tolerated. cardio: cardiomyopathy with EF 20-25%. Cardio recommended ischemic eval when stable. Noticed frequent ectopy, amiodarone gtt restarted. Plan to continue amiodarone gtt x24hrs and reevaluate switch to oral. Plan to avoid vasopressors in the setting of CHF. GI/FLuids/electrolytes: IV protonix BID, carafate. S/p repeat EGD showing no repeat bleeding. fluid overloaded. renal: resolved SAGE ID: sepsis secondary to bilateral lower extremity cellulitis. wound cultures grew providencia rettgeri, strep pyogenes, staph aureus. appreciate ID recommendations. repeat blood cultures showed no growth. Aosyn day 12, continue for total of 14 days Heme/onc: shock (hemorrhagic, hypovolemic, cardiogenic). repeat H/H and monitor. MSK: PT/OT eval as patient will need ECF placement Integumentary: Significant edema, Cellulitis of right LE daily dressing changes , podiatry following. Endo: LDSSI. CODE: DNR-CCA/DNI. Subjective Principal diagnosis: GI bleed, Sepsis, acute systolic CHF. Interval history: The patient was seen and examined. The patient was extubated yesterday and remains on 4L O2 NC. The patient stated he would like code status changed yesterday to DNR-CCA/DNI. He denies any complaints, pain or SOB at this time, however complains of pain in the right hand when examined. Objective PUL Vital signs: Last Vital Signs Temp 98.0 F 02/21/17 07:49 Pulse 64 02/21/17 07:00 Resp 16 02/21/17 07:00 BP 108/53 02/21/17 07:00 Pulse Ox 97 02/21/17 07:00 General appearance: lethargic Eyes: nonicteric ENT: oropharynx dry Neck: supple, no lymphadenopathy Effort: mildly labored Auscultation: bilateral: clear Cardiovascular: PVC's noted Gastrointestinal: hypoactive bowel sounds, soft, non-tender, non-distended Integumentary: cellulitis (b/l LE) Extremities: edema, other (right second toe appears to have area of necrosis in nail bed) pupils equal and round, other (Patient oriented to person, not oriented to place or time.) depressed Results - Laboratory Findings CBC and BMP: 02/21/17 03:00 02/21/17 03:00 ABG ABG pH 7.41 pH Units (7.32-7.45) 02/20/17 04:30 ABG pCO2 45 mmHg (35-45) 02/20/17 04:30 ABG pO2 75 mmHg (85-104) L 02/20/17 04:30 ABG O2 Saturation 95 % (95-98) 02/20/17 04:30 PT/INR, D-dimer PT 16.3 Seconds (9.4-12.1) H 02/16/17 01:38 Abnormal lab findings: Abnormal lab results WBC 12.6 K/mcL (4.3-11.1) H 02/21/17 03:00 RBC 3.81 M/mcL (4.19-5.50) L 02/21/17 03:00 Hgb 11.1 g/dL (12.9-16.9) L 02/21/17 03:00 Hct 35.2 % (37.5-50.1) L 02/21/17 03:00 MCHC 31.5 g/dL (31.6-35.5) L 02/21/17 03:00 RDW 17.5 % (11.5-14.5) H 02/21/17 03:00 Metamyelocytes % 2.0 % (0) H 02/12/17 03:00 Myelocytes % 2.0 % (0) H 02/10/17 07:15 Promyelocytes % 2.0 % (0) H 02/09/17 16:16 Neutrophils # 10.1 K/mcL (1.6-8.9) H 02/21/17 03:00 Nucleated RBCs/100 WBC 0.1 /100 WBC (0) H 02/17/17 21:58 Reactive Lymphocytes Present (Not Present) A 02/13/17 03:00 Platelet Estimate Slight Decrease (Normal) L 02/13/17 03:00 Large Platelets Present (Not Present) A 02/13/17 03:00 Polychromasia 1+ (Not Present) A 02/13/17 03:00 Hypochromasia Present (Not Present) A 02/10/17 03:10 Poikilocytosis 1+ (Not Present) A 02/11/17 05:25 Anisocytosis 1+ (Not Present) A 02/13/17 03:00 Microcytosis Present (Not Present) A 02/12/17 03:00 Macrocytosis Present (Not Present) A 02/12/17 03:00 Target Cells 1+ (Not Present) A 02/13/17 03:00 ESR 61 mm/hr (0-10) H 02/15/17 16:45 PT 16.3 Seconds (9.4-12.1) H 02/16/17 01:38 APTT 40.8 Seconds (26.0-36.0) H 02/08/17 00:45 ABG pO2 75 mmHg (85-104) L 02/20/17 04:30 ABG HCO3 28.5 mEQ/L (21-27) H 02/20/17 04:30 ABG Total CO2 29.9 mEq/L (20-26) H 02/20/17 04:30 ABG Base Excess 3.3 mEq/L (-2.0 to 3.0) H 02/20/17 04:30 Sodium 148 mEq/L (136-145) H 02/21/17 03:00 Chloride 116 mEq/L (98-109) H 02/21/17 03:00 BUN 27 mg/dL (8-26) H 02/21/17 03:00 BUN/Creatinine Ratio 29 (6-26) H 02/21/17 03:00 Glucose 111 mg/dL (70-99) H 02/21/17 03:00 POC Glucose 111 (58-89) H 02/20/17 22:09 Hemoglobin A1c 6.9 % (-5.6) H 02/06/17 06:18 Calculated Osmolality 312 (280-300) H 02/21/17 03:00 Iron 54 mcg/dL (65-175) L 02/08/17 06:39 Transferrin 146 mg/dL (174-364) L 02/08/17 06:39 Ferritin 808 ng/ml (22-275) H 02/08/17 06:39 Total Bilirubin 4.3 mg/dL (0.2-1.2) H 02/16/17 01:38 Direct Bilirubin 3.2 mg/dL (0.0-0.5) H 02/16/17 01:38 AST 66 Units/L (5-34) H 02/16/17 01:38 Troponin I 0.24 ng/mL (0-0.03) H* 02/06/17 18:39 C-Reactive Protein 84 mg/L (Less than 5) H 02/15/17 16:45 B-Natriuretic Peptide 2958 pg/mL (0-100) H 02/05/17 23:05 Serum Total Protein 4.0 g/dL (6.0-8.3) L D 02/16/17 01:38 Total Protein (PEP) 5.10 g/dL (6.00-8.30) L 02/08/17 06:39 Albumin 1.2 g/dL (3.5-5.0) L 02/16/17 01:38 Albumin (PEP) 2.16 g/dL (3.75-5.01) L 02/08/17 06:39 Albumin/Globulin Ratio 0.4 (1.1-2.2) L 02/16/17 01:38 [id number]-9-Nqpukfhrk 0.53 g/dL (0.19-0.46) H 02/08/17 06:39 HDL Cholesterol 16 mg/dL (40-59) L 02/06/17 06:18 Cholesterol/HDL Ratio 6.7 (0-4.9) H 02/06/17 06:18 Vitamin B12 1850 pg/mL (213-816) H 02/08/17 06:39 25-OH Vitamin D Total 15 ng/mL (30-80) L 02/08/17 06:39 Folate 6.4 ng/mL (7.0-31.4) L 02/08/17 06:39 Procalcitonin 0.95 ng/mL (<=0.10) H 02/15/17 18:30 Urine Clarity Cloudy (Clear) A 02/11/17 08:54 Urine Blood Moderate (Negative) H 02/11/17 08:54 Urine Bilirubin Small (Negative) H 02/11/17 08:54 Ur Leukocyte Esterase Trace (Negative) H 02/11/17 08:54 Ur Squamous Epith Cells Moderate per lpf (None-Few) H 02/11/17 08:54 Ur Culture Indicated? YES (NO) A 02/11/17 08:54 Microalb/Creat Ratio 65 (0-30) H 02/07/17 15:26 Protein/Creatinin Ratio 0.41 mg/mg (0-0.20) H 02/07/17 15:26 Urine Total Protein 65 mg/dL (1-14) H 02/07/17 15:26 Streptococcus sp PCR DETECTED (Not Detect) A 02/05/17 23:06 Group A Strep DNA DETECTED (Not Detect) A 02/05/17 23:06 - Clinical Findings Intake & Output: Intake & Output 02/20/17 02/21/17 02/21/17 23:59 07:59 15:59 Intake Total 424 / 424 491 / 491 100 / 100 Output Total 1400 / 1400 500 / 500 Balance -976 / -976 -9 / -9 100 / 100 Consult Discharge Plan - Plan Referrals: Baker,Yasmani Martin MD [Non-Partnered Physician] - (OFFICE WILL NOT MAKE A FOLLOW UP APPOINTMENT FOR THIS PATIENT UNITL WE HAVE A DISCHARGE ORDER) <Charli Garnett W - Last Filed: 02/21/17 12:38> Date of Encounter: 02/21/17 Objective PUL Vital signs: Last Vital Signs Temp 98.0 F 02/21/17 07:49 Pulse 64 02/21/17 07:00 Resp 16 02/21/17 07:00 BP 108/53 02/21/17 07:00 Pulse Ox 97 02/21/17 07:00 Results - Laboratory Findings CBC and BMP: 02/21/17 03:00 02/21/17 11:25 ABG ABG pH 7.41 pH Units (7.32-7.45) 02/20/17 04:30 ABG pCO2 45 mmHg (35-45) 02/20/17 04:30 ABG pO2 75 mmHg (85-104) L 02/20/17 04:30 ABG O2 Saturation 95 % (95-98) 02/20/17 04:30 PT/INR, D-dimer PT 16.3 Seconds (9.4-12.1) H 02/16/17 01:38 Abnormal lab findings: Abnormal lab results WBC 12.6 K/mcL (4.3-11.1) H 02/21/17 03:00 RBC 3.81 M/mcL (4.19-5.50) L 02/21/17 03:00 Hgb 11.1 g/dL (12.9-16.9) L 02/21/17 03:00 Hct 35.2 % (37.5-50.1) L 02/21/17 03:00 MCHC 31.5 g/dL (31.6-35.5) L 02/21/17 03:00 RDW 17.5 % (11.5-14.5) H 02/21/17 03:00 Metamyelocytes % 2.0 % (0) H 02/12/17 03:00 Myelocytes % 2.0 % (0) H 02/10/17 07:15 Promyelocytes % 2.0 % (0) H 02/09/17 16:16 Neutrophils # 10.1 K/mcL (1.6-8.9) H 02/21/17 03:00 Nucleated RBCs/100 WBC 0.1 /100 WBC (0) H 02/17/17 21:58 Reactive Lymphocytes Present (Not Present) A 02/13/17 03:00 Platelet Estimate Slight Decrease (Normal) L 02/13/17 03:00 Large Platelets Present (Not Present) A 02/13/17 03:00 Polychromasia 1+ (Not Present) A 02/13/17 03:00 Hypochromasia Present (Not Present) A 02/10/17 03:10 Poikilocytosis 1+ (Not Present) A 02/11/17 05:25 Anisocytosis 1+ (Not Present) A 02/13/17 03:00 Microcytosis Present (Not Present) A 02/12/17 03:00 Macrocytosis Present (Not Present) A 02/12/17 03:00 Target Cells 1+ (Not Present) A 02/13/17 03:00 ESR 61 mm/hr (0-10) H 02/15/17 16:45 PT 16.3 Seconds (9.4-12.1) H 02/16/17 01:38 APTT 40.8 Seconds (26.0-36.0) H 02/08/17 00:45 ABG pO2 75 mmHg (85-104) L 02/20/17 04:30 ABG HCO3 28.5 mEQ/L (21-27) H 02/20/17 04:30 ABG Total CO2 29.9 mEq/L (20-26) H 02/20/17 04:30 ABG Base Excess 3.3 mEq/L (-2.0 to 3.0) H 02/20/17 04:30 Sodium 148 mEq/L (136-145) H 02/21/17 03:00 Chloride 116 mEq/L (98-109) H 02/21/17 03:00 BUN 27 mg/dL (8-26) H 02/21/17 03:00 BUN/Creatinine Ratio 29 (6-26) H 02/21/17 03:00 Glucose 111 mg/dL (70-99) H 02/21/17 03:00 POC Glucose 111 (58-89) H 02/20/17 22:09 Hemoglobin A1c 6.9 % (-5.6) H 02/06/17 06:18 Calculated Osmolality 312 (280-300) H 02/21/17 03:00 Iron 54 mcg/dL (65-175) L 02/08/17 06:39 Transferrin 146 mg/dL (174-364) L 02/08/17 06:39 Ferritin 808 ng/ml (22-275) H 02/08/17 06:39 Total Bilirubin 4.3 mg/dL (0.2-1.2) H 02/16/17 01:38 Direct Bilirubin 3.2 mg/dL (0.0-0.5) H 02/16/17 01:38 AST 66 Units/L (5-34) H 02/16/17 01:38 Troponin I 0.24 ng/mL (0-0.03) H* 02/06/17 18:39 C-Reactive Protein 84 mg/L (Less than 5) H 02/15/17 16:45 B-Natriuretic Peptide 2958 pg/mL (0-100) H 02/05/17 23:05 Serum Total Protein 4.0 g/dL (6.0-8.3) L D 02/16/17 01:38 Total Protein (PEP) 5.10 g/dL (6.00-8.30) L 02/08/17 06:39 Albumin 1.2 g/dL (3.5-5.0) L 02/16/17 01:38 Albumin (PEP) 2.16 g/dL (3.75-5.01) L 02/08/17 06:39 Albumin/Globulin Ratio 0.4 (1.1-2.2) L 02/16/17 01:38 Jycdj-1-Jqeehoqur 0.53 g/dL (0.19-0.46) H 02/08/17 06:39 HDL Cholesterol 16 mg/dL (40-59) L 02/06/17 06:18 Cholesterol/HDL Ratio 6.7 (0-4.9) H 02/06/17 06:18 Vitamin B12 1850 pg/mL (213-816) H 02/08/17 06:39 25-OH Vitamin D Total 15 ng/mL (30-80) L 02/08/17 06:39 Folate 6.4 ng/mL (7.0-31.4) L 02/08/17 06:39 Procalcitonin 0.95 ng/mL (<=0.10) H 02/15/17 18:30 Urine Clarity Cloudy (Clear) A 02/11/17 08:54 Urine Blood Moderate (Negative) H 02/11/17 08:54 Urine Bilirubin Small (Negative) H 02/11/17 08:54 Ur Leukocyte Esterase Trace (Negative) H 02/11/17 08:54 Ur Squamous Epith Cells Moderate per lpf (None-Few) H 02/11/17 08:54 Ur Culture Indicated? YES (NO) A 02/11/17 08:54 Microalb/Creat Ratio 65 (0-30) H 02/07/17 15:26 Protein/Creatinin Ratio 0.41 mg/mg (0-0.20) H 02/07/17 15:26 Urine Total Protein 65 mg/dL (1-14) H 02/07/17 15:26 Streptococcus sp PCR DETECTED (Not Detect) A 02/05/17 23:06 Group A Strep DNA DETECTED (Not Detect) A 02/05/17 23:06 - Clinical Findings Intake & Output: Intake & Output 02/20/17 02/21/17 02/21/17 23:59 07:59 15:59 Intake Total 424 / 424 491 / 491 100 / 100 Output Total 1400 / 1400 500 / 500 Balance -976 / -976 -9 / -9 100 / 100 - Attending Attestation I examined this patient and my medical decision-making was reviewed with the EXPEDITER SERVICE ORDER/PA/Advanced Practice Nurse/Resident Physician. I agree with the documented findings, disposition and treatment plan as described except to the extent set forth below. Patient seen and examined at bedside Labs, radiology, chart personally reviewed. All lines examined without evidence of infection. Neuropsych: awake not fully oriented but follows commands appropriately we will attempt to restore sleep-wake cycle and avoid AGATE SETTER depressant medications. Pulm: acute on chronic hypoxic respiratory failure s/t CHF net negative volume status as tolerated for pulmonary edema Cards: chronic systolic heart failure. continues to have runs of ectopy on Amiodarone gtt appreciiate cardiac recs. cont goal net negative fluid balance. FEN-GI:formal swallow evaluate by speech today. duodenal ucler s/p clipping cont PPI. via BID. cont rectal tube for dark output supected old blood . Renal: no sage stable check daily renal function ID: cont zosyn for LE cellulitis day 09/01.. ID following. Heme/Onc: Acute blood loss anemia secondary to gastric intestinal hemorrhage now Stable H/H Endo: Glucose monitored and are controlled. Integ/MSK: chronic LE cellulitis and PVD. Podiatry following. Start PT/OT as tolerated. CODE: DNAR/DNI. Overall prognosis given chronic deconditioning advanced heart failure is very poor palliative care following stable for transfer to SDU.
[2017-02-21] MEDS: Norepinephrine 4 MG in D5% in Water 250 ML IVC SCH ×2 (10:26→20:20)
[2017-02-21 11:59] LABS: Magnesium 1.8 mg/dL (1.6-2.6); Potassium 3.9 mEq/L (3.5-4.5)
--- NOTE | 2017-02-21 12:16 | Palliative Progress Note ---
Date of Encounter: 02/21/17 Time of Encounter: 12:10 - Assessment and plan (1) Anxiety Current Visit: Yes Status: Acute Assessment and plan: Off sedatives at this time. Denies anxiety, but appears confused today. Will monitor (2) Counseling regarding advanced care planning and goals of care Current Visit: Yes Status: Acute Assessment and plan: Patient DNR established over the weekend. Still requiring Amiodarone IV at this point. Patient appears very weak and slightly confused today. He will eventually need physical therapy consult - he will probably need placement if he improves during hospital stay. Speech consult ordered as well. Will follow clinical course closely. (3) Cellulitis Current Visit: Yes Status: Acute Qualifiers: Site of cellulitis: extremity Site of cellulitis of extremity: lower extremity Laterality: right Qualified Code(s): L03.115 - Cellulitis of right lower limb (4) Sepsis Current Visit: Yes Status: Acute Qualifiers: Sepsis type: sepsis due to unspecified organism Qualified Code(s): A41.9 - Sepsis, unspecified organism (5) Duodenal ulcer Current Visit: Yes Status: Acute (6) GI bleeding Current Visit: Yes Status: Acute Qualifiers: GI bleed type/associated pathology: duodenal ulcer Qualified Code(s): 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 - Time Spent With Patient Total time spent is greater than 50% in coordination of care (as documented) at patient's floor/unit and/or counseling patient: 25 - 35 minutes - Subjective Interval history: Patient awake and alert. Can tell me his name, daughter's name, and place, but does not recall any recent events. C/O generalized pain "all over". Breathing is "ok". Moist weak cough noted. Appears short of breath, but states "breathing ok". No family present. Chart reviewed and events of this weekend noted. 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 - Constitutional Vitals: Abnormal lab results WBC 12.6 K/mcL (4.3-11.1) H 02/21/17 03:00 RBC 3.81 M/mcL (4.19-5.50) L 02/21/17 03:00 Hgb 11.1 g/dL (12.9-16.9) L 02/21/17 03:00 Hct 35.2 % (37.5-50.1) L 02/21/17 03:00 MCHC 31.5 g/dL (31.6-35.5) L 02/21/17 03:00 RDW 17.5 % (11.5-14.5) H 02/21/17 03:00 Metamyelocytes % 2.0 % (0) H 02/12/17 03:00 Myelocytes % 2.0 % (0) H 02/10/17 07:15 Promyelocytes % 2.0 % (0) H 02/09/17 16:16 Neutrophils # 10.1 K/mcL (1.6-8.9) H 02/21/17 03:00 Nucleated RBCs/100 WBC 0.1 /100 WBC (0) H 02/17/17 21:58 Reactive Lymphocytes Present (Not Present) A 02/13/17 03:00 Platelet Estimate Slight Decrease (Normal) L 02/13/17 03:00 Large Platelets Present (Not Present) A 02/13/17 03:00 Polychromasia 1+ (Not Present) A 02/13/17 03:00 Hypochromasia Present (Not Present) A 02/10/17 03:10 Poikilocytosis 1+ (Not Present) A 02/11/17 05:25 Anisocytosis 1+ (Not Present) A 02/13/17 03:00 Microcytosis Present (Not Present) A 02/12/17 03:00 Macrocytosis Present (Not Present) A 02/12/17 03:00 Target Cells 1+ (Not Present) A 02/13/17 03:00 ESR 61 mm/hr (0-10) H 02/15/17 16:45 PT 16.3 Seconds (9.4-12.1) H 02/16/17 01:38 APTT 40.8 Seconds (26.0-36.0) H 02/08/17 00:45 ABG pO2 75 mmHg (85-104) L 02/20/17 04:30 ABG HCO3 28.5 mEQ/L (21-27) H 02/20/17 04:30 ABG Total CO2 29.9 mEq/L (20-26) H 02/20/17 04:30 ABG Base Excess 3.3 mEq/L (-2.0 to 3.0) H 02/20/17 04:30 Sodium 148 mEq/L (136-145) H 02/21/17 03:00 Chloride 116 mEq/L (98-109) H 02/21/17 03:00 BUN 27 mg/dL (8-26) H 02/21/17 03:00 BUN/Creatinine Ratio 29 (6-26) H 02/21/17 03:00 Glucose 111 mg/dL (70-99) H 02/21/17 03:00 POC Glucose 94 (58-89) H 02/21/17 11:08 Hemoglobin A1c 6.9 % (-5.6) H 02/06/17 06:18 Calculated Osmolality 312 (280-300) H 02/21/17 03:00 Iron 54 mcg/dL (65-175) L 02/08/17 06:39 Transferrin 146 mg/dL (174-364) L 02/08/17 06:39 Ferritin 808 ng/ml (22-275) H 02/08/17 06:39 Total Bilirubin 4.3 mg/dL (0.2-1.2) H 02/16/17 01:38 Direct Bilirubin 3.2 mg/dL (0.0-0.5) H 02/16/17 01:38 AST 66 Units/L (5-34) H 02/16/17 01:38 Troponin I 0.24 ng/mL (0-0.03) H* 02/06/17 18:39 C-Reactive Protein 84 mg/L (Less than 5) H 02/15/17 16:45 B-Natriuretic Peptide 2958 pg/mL (0-100) H 02/05/17 23:05 Serum Total Protein 4.0 g/dL (6.0-8.3) L D 02/16/17 01:38 Total Protein (PEP) 5.10 g/dL (6.00-8.30) L 02/08/17 06:39 Albumin 1.2 g/dL (3.5-5.0) L 02/16/17 01:38 Albumin (PEP) 2.16 g/dL (3.75-5.01) L 02/08/17 06:39 Albumin/Globulin Ratio 0.4 (1.1-2.2) L 02/16/17 01:38 Tbedf-9-Bwitfhtnb 0.53 g/dL (0.19-0.46) H 02/08/17 06:39 HDL Cholesterol 16 mg/dL (40-59) L 02/06/17 06:18 Cholesterol/HDL Ratio 6.7 (0-4.9) H 02/06/17 06:18 Vitamin B12 1850 pg/mL (213-816) H 02/08/17 06:39 25-OH Vitamin D Total 15 ng/mL (30-80) L 02/08/17 06:39 Folate 6.4 ng/mL (7.0-31.4) L 02/08/17 06:39 Procalcitonin 0.95 ng/mL (<=0.10) H 02/15/17 18:30 Urine Clarity Cloudy (Clear) A 02/11/17 08:54 Urine Blood Moderate (Negative) H 02/11/17 08:54 Urine Bilirubin Small (Negative) H 02/11/17 08:54 Ur Leukocyte Esterase Trace (Negative) H 02/11/17 08:54 Ur Squamous Epith Cells Moderate per lpf (None-Few) H 02/11/17 08:54 Ur Culture Indicated? YES (NO) A 02/11/17 08:54 Microalb/Creat Ratio 65 (0-30) H 02/07/17 15:26 Protein/Creatinin Ratio 0.41 mg/mg (0-0.20) H 02/07/17 15:26 Urine Total Protein 65 mg/dL (1-14) H 02/07/17 15:26 Streptococcus sp PCR DETECTED (Not Detect) A 02/05/17 23:06 Group A Strep DNA DETECTED (Not Detect) A 02/05/17 23:06 - Respiratory Additional comments: Scattered rhonchi anteriorally. O2 at 4L NC at present. - Cardiovascular Cardiovascular exam: Present: irregular rhythm - GI/Abdominal GI/Abdominal exam: Present: distended, soft - Extremities Exam Additional comments: generalized edema - Neurological Exam Neurological exam: Present: alert Additional comments: patient can answer name, date of , location, but cannot recall recent events. Can give me his daughters name. - Psychiatric Psychiatric exam: Present: normal affect, normal mood - Skin Additional comments: Bilateral lower extremities with dressings D/I Palliative Quality Palliative Quality: Screen for Code Status: Yes, Screen for Goals of Care: Yes, Screen for Pain: NA (sedated on vent), If Pain Regimen Started, Initiate Bowel Regimen: NA, Screen for Nausea/Vomitting: NA Code Status: 02/20/17 12:44 DNR [Resuscitation Status: Active] [RES] Routine Comment: per daughter gill (POA) Resuscitation Status: NDK-BwozfbwByfe-SchqwnIFE - Labs CBC & Chem 7: 02/21/17 03:00 02/21/17 11:25 Labs: Laboratory Results - last 24 hr 02/18/17 02/20/17 02/20/17 17:20 16:52 22:09 WBC RBC Hgb Hct MCV MCH MCHC RDW Plt Count MPV Immature Gran % Seg Neutrophils % Lymphocytes % Monocytes % Eosinophils % Basophils % Neutrophils # Lymphocytes # Monocytes # Eosinophils # Basophils # Immature Plt Fraction Smear Path Review Sodium Potassium Chloride Carbon Dioxide BUN Creatinine Est GFR ( Amer) Est GFR (Non-Af Amer) BUN/Creatinine Ratio Glucose POC Glucose 125 H 111 H Calculated Osmolality Calcium Ionized Calcium Phosphorus Magnesium 02/21/17 02/21/17 02/21/17 03:00 03:00 11:08 WBC 12.6 H RBC 3.81 L Hgb 11.1 L Hct 35.2 L MCV 92.4 MCH 29.1 MCHC 31.5 L RDW 17.5 H Plt Count 204 MPV 10.7 Immature Gran % 0.5 Seg Neutrophils % 80.1 Lymphocytes % 11.6 Monocytes % 4.7 Eosinophils % 2.4 Basophils % 0.7 Neutrophils # 10.1 H Lymphocytes # 1.5 Monocytes # 0.6 Eosinophils # 0.3 Basophils # 0.1 Immature Plt Fraction 4.7 Smear Path Review Sodium 148 H Potassium 3.9 Chloride 116 H Carbon Dioxide 26 BUN 27 H Creatinine 0.94 Est GFR ( Amer) > 60 Est GFR (Non-Af Amer) > 60 BUN/Creatinine Ratio 29 H Glucose 111 H POC Glucose 94 H Calculated Osmolality 312 H Calcium 8.9 Ionized Calcium 1.32 Phosphorus 3.9 Magnesium 1.7 02/21/17 11:25 WBC RBC Hgb Hct MCV MCH MCHC RDW Plt Count MPV Immature Gran % Seg Neutrophils % Lymphocytes % Monocytes % Eosinophils % Basophils % Neutrophils # Lymphocytes # Monocytes # Eosinophils # Basophils # Immature Plt Fraction Smear Path Review Sodium Potassium 3.9 Chloride Carbon Dioxide BUN Creatinine Est GFR ( Amer) Est GFR (Non-Af Amer) BUN/Creatinine Ratio Glucose POC Glucose Calculated Osmolality Calcium Ionized Calcium Phosphorus Magnesium 1.8 - ABG Interpretation ABG results: ABG ABG pH 7.41 pH Units (7.32-7.45) 02/20/17 04:30 ABG pCO2 45 mmHg (35-45) 02/20/17 04:30 ABG pO2 75 mmHg (85-104) L 02/20/17 04:30 ABG O2 Saturation 95 % (95-98) 02/20/17 04:30 PT/INR, D-dimer PT 16.3 Seconds (9.4-12.1) H 02/16/17 01:38 Consult Discharge Plan - Plan Referrals: Yasmani Baker MD [Non-Partnered Physician] - (OFFICE WILL NOT MAKE A FOLLOW UP APPOINTMENT FOR THIS PATIENT UNITL WE HAVE A DISCHARGE ORDER)
[2017-02-21] MEDS: *HR* HYDROmorphone (PF) 1 MG/ML SYRINGE IVP PRN (15:55)
--- NOTE | 2017-02-21 16:29 | Electrocardiograph Report ---
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
[2017-02-21 18:10] LABS: Alanine Aminotransferase 15 Units/L (0-55); Albumin/Globulin Ratio 0.3 (1.1-2.2); Alkaline Phosphatase 100 Units/L (38-126); Aspartate Amino Transferase 28 Units/L (5-34); BUN/Creatinine Ratio 25 (6-26); Bilirubin,Total 2.2 mg/dL (0.2-1.2); Blood Urea Nitrogen 26 mg/dL (8-26); Calcium 8.9 mg/dL (8.6-10.8); Carbon Dioxide 27 mEq/L (19-29); Chloride 115 mEq/L (98-109); Creatine Kinase 73 Units/L (30-200); Globulin 4.7 g/dL (2.4-3.5); Glucose 115 mg/dL (70-99); Magnesium 1.6 mg/dL (1.6-2.6); Osmolality,Calculated 316 (280-300); Phosphorous 4.3 mg/dL (2.3-4.7); Potassium 3.7 mEq/L (3.5-4.5); Sodium 150 mEq/L (136-145); Total Protein 6.3 g/dL (6.0-8.3); eGFR For African Americans > 60 (> 60); eGFR For Non-African Americans > 60 (> 60)
[2017-02-21 18:12] LABS: Albumin 1.6 g/dL (3.5-5.0)
[2017-02-21 18:23] LABS: Ionized Calcium 1.34 mmol/L (1.15-1.35)
[2017-02-21] MEDS: Dexmedetomidine HCl 400 MCG/100 ML MLS IVC SCH (20:20)
[2017-02-22] MEDS: Dexmedetomidine HCl 400 MCG/100 ML MLS IVC SCH (01:08)
[2017-02-22] MEDS: Pantoprazole 40 MG VIAL IVP SCH ×2 (05:47→17:14)
[2017-02-22] MEDS: *HR* HYDROmorphone (PF) 1 MG/ML SYRINGE IVP PRN ×4 (05:48→23:08)
[2017-02-22 05:56] LABS: Ionized Calcium 1.22 mmol/L (1.15-1.35)
[2017-02-22 06:01] LABS: BUN/Creatinine Ratio 24 (6-26); Blood Urea Nitrogen 24 mg/dL (8-26); Calcium 8.7 mg/dL (8.6-10.8); Carbon Dioxide 27 mEq/L (19-29); Chloride 116 mEq/L (98-109); Glucose 108 mg/dL (70-99); Magnesium 1.7 mg/dL (1.6-2.6); Osmolality,Calculated 313 (280-300); Potassium 3.6 mEq/L (3.5-4.5); Sodium 149 mEq/L (136-145); eGFR For African Americans > 60 (> 60); eGFR For Non-African Americans > 60 (> 60)
[2017-02-22] MEDS: Potassium Chloride 40 MEQ/200 ML BAG IVPB PRN ×2 (06:52→23:09)
[2017-02-22] MEDS: Lactobacillus 1 EACH CAP.SPRINK PO SCH (09:42)
[2017-02-22] MEDS: Furosemide 40 MG/4 ML VIAL IVP SCH ×2 (09:42→17:13)
[2017-02-22] MEDS: Magnesium Sulfate 2 GM in D5% in Water 100 ML IVPB PRN ×2 (09:42→20:11)
[2017-02-22] MEDS: Insulin LISPRO 300 UNITS/3 ML VIAL SQ SCH ×4 (09:43→20:19)
[2017-02-22] MEDS: Amiodarone Premix 360 MG/200 ML BAG IVC SCH (12:26)
[2017-02-22 12:54] LABS: BUN/Creatinine Ratio 22 (6-26); Blood Urea Nitrogen 24 mg/dL (8-26); Calcium 8.8 mg/dL (8.6-10.8); Carbon Dioxide 27 mEq/L (19-29); Chloride 114 mEq/L (98-109); Glucose 141 mg/dL (70-99); Osmolality,Calculated 314 (280-300); Potassium 3.8 mEq/L (3.5-4.5); Sodium 149 mEq/L (136-145); eGFR For African Americans > 60 (> 60); eGFR For Non-African Americans > 60 (> 60)
--- NOTE | 2017-02-22 14:04 | Internal Med Progress Note ---
Date of Encounter: 02/22/17 Time of Encounter: 09:50 - Assessment and plan (1) Sepsis Current Visit: Yes Status: Acute Assessment and plan: secondary to b/l lower leg cellulitis, wound cultures positive, continue Zosyn Qualifiers: Sepsis type: sepsis due to unspecified organism Qualified Code(s): A41.9 - Sepsis, unspecified organism (2) Cellulitis Current Visit: Yes Status: Acute Assessment and plan: Continue IV antibiotics. Qualifiers: Site of cellulitis: extremity Site of cellulitis of extremity: lower extremity Laterality: right Qualified Code(s): L03.115 - Cellulitis of right lower limb (3) Essential hypertension Current Visit: Yes Status: Acute Assessment and plan: Will monitor closely. Hold antihypertensives. (4) Diabetes mellitus Current Visit: Yes Status: Chronic Assessment and plan: Fairly controlled. Continue current insulin Qualifiers: Diabetes mellitus type: type 2 Diabetes mellitus complication status: with unspecified complications Diabetes mellitus mcc insulin use: without mcc use Qualified Code(s): E11.8 - Type 2 diabetes mellitus with unspecified complications (5) CHF (congestive heart failure) Current Visit: Yes Status: Acute Assessment and plan: LVEF% 20-25% with cardiomyopathy, probably due to CAD without angina, with chronic atrial fibrillation Qualifiers: Congestive heart failure type: unspecified congestive heart failure type Congestive heart failure chronicity: chronic Qualified Code(s): I50.9 - Heart failure, unspecified (6) A-fib Current Visit: Yes Status: Chronic Assessment and plan: Rate controlled. Not on anticoagulation due to GI bleed - on amiodarone as per critical care/pulmonology Qualifiers: Atrial fibrillation type: chronic Qualified Code(s): I48.2 - Chronic atrial fibrillation (7) Encephalopathy Current Visit: Yes Status: Acute Assessment and plan: likely due to sepsis and multiple medical problems. may need CT head. (8) Acute respiratory failure with hypoxia and hypercapnia Current Visit: Yes Status: Acute Assessment and plan: extubated successfully - Time Spent With Patient 25 - 35 minutes - Subjective Interval history: Patient is awake. Does no verbalize well. Daughter is at bedside, she has been explained about patient's critical condition and guarded prognosis. No fever. Hemodynamically stable. Amiodarone continued for atrial fibrillation. - Constitutional Vitals: Temp Pulse Resp BP Pulse Ox 97.9 F 94 20 118/61 99 02/22/17 12:07 02/22/17 12:07 02/22/17 12:07 02/22/17 12:07 02/22/17 12:07 General appearance: Present: disheveled, morbidly obese, no acute distress. Absent: answers questions appropriately - Head Head exam: Present: atraumatic - ENT Additional comments: oral mucosa dry - Respiratory Respiratory exam: Present: CTAB. Absent: rhonchi, wheezes - Extremities Exam Additional comments: b/l lower leg edema, dressing intact, cellulitis+ - Neurological Exam Additional comments: awake, does not verbalize well, does not follow verbal commands well, unable to assess full neuro exam - Skin Additional comments: sacral decuvitus ulcer+, cellulitis b/l lower legs Internal Medicine: Result - Labs CBC & Chem 7: 02/21/17 03:00 02/22/17 12:30 Labs: BMP 02/21/17 02/22/17 02/22/17 17:30 05:40 12:30 Sodium 150 H 149 H 149 H Potassium 3.7 3.6 3.8 Chloride 115 H 116 H 114 H Carbon Dioxide 27 27 27 BUN 26 24 24 Creatinine 1.06 1.00 1.07 Glucose 115 H 108 H 141 H Calcium 8.9 8.7 8.8 Cardiac Enzymes 02/21/17 Range/Units 17:30 Troponin I 0.03 (0-0.03) ng/mL Liver Function 02/21/17 Range/Units 17:30 Total Bilirubin 2.2 H (0.2-1.2) mg/dL AST 28 (5-34) Units/L ALT 15 (0-55) Units/L Alkaline Phosphatase 100 (38-126) Units/L Albumin 1.6 L (3.5-5.0) g/dL - ABG Interpretation ABG results: ABG ABG pH 7.41 pH Units (7.32-7.45) 02/20/17 04:30 ABG pCO2 45 mmHg (35-45) 02/20/17 04:30 ABG pO2 75 mmHg (85-104) L 02/20/17 04:30 ABG O2 Saturation 95 % (95-98) 02/20/17 04:30 PT/INR, D-dimer PT 16.3 Seconds (9.4-12.1) H 02/16/17 01:38 Consult Discharge Plan - Plan Referrals: Yasmani Baker MD [Non-Partnered Physician] - (OFFICE WILL NOT MAKE A FOLLOW UP APPOINTMENT FOR THIS PATIENT UNITL WE HAVE A DISCHARGE ORDER)
--- NOTE | 2017-02-22 14:22 | Event Note ---
Date of Encounter: 02/22/17 Time of Encounter: 14:00 Patient appears lethargic today. Denies pain or shortness of breath. Daughter Patricia in room. Discussed that if he improves, he will need rehabilitation. She is aware that he is fragile, and could have complication that would put him back in critical condition at any time. She acknowledged information. Will follow clinical course. Hospitalist to speak with daughter today as well.
[2017-02-22] MEDS: Nystatin POWDER 30 GM BOTTLE TP SCH ×2 (15:59→20:12)
[2017-02-22 22:01] LABS: BUN/Creatinine Ratio 23 (6-26); Blood Urea Nitrogen 24 mg/dL (8-26); Calcium 8.7 mg/dL (8.6-10.8); Carbon Dioxide 28 mEq/L (19-29); Chloride 115 mEq/L (98-109); Glucose 123 mg/dL (70-99); Osmolality,Calculated 317 (280-300); Potassium 3.7 mEq/L (3.5-4.5); Sodium 151 mEq/L (136-145); eGFR For African Americans > 60 (> 60); eGFR For Non-African Americans > 60 (> 60)
--- NOTE | 2017-02-22 23:52 | Electrocardiograph Report ---
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
[2017-02-23] MEDS: Pantoprazole 40 MG VIAL IVP SCH ×2 (04:22→17:03)
[2017-02-23] MEDS: Amiodarone Premix 360 MG/200 ML BAG IVC SCH (04:22)
[2017-02-23 04:47] LABS: Basophils # 0.1 K/mcL (0.0-0.2); Basophils % 0.7 %; Eosinophils # 0.3 K/mcL (0.0-0.6); Eosinophils % 2.4 %; Hematocrit 32.4 % (37.5-50.1); Immature Granulocytes % 0.6 % (0-4); Lymphocytes # 1.5 K/mcL (0.6-4.6); Lymphocytes % 14.4 %; Mean Corpuscular HGB Conc 30.9 g/dL (31.6-35.5); Mean Corpuscular Hemoglobin 29.2 pg (28.0-33.3); Mean Corpuscular Volume 94.7 fL (83.0-100.0); Mean Platelet Volume 10.1 fL (9.4-12.4); Monocytes # 0.8 K/mcL (0.0-1.3); Monocytes % 7.1 %; Neutrophils # 7.9 K/mcL (1.6-8.9); Platelet Count 186 K/mcL (140-400); Red Blood Count 3.42 M/mcL (4.19-5.50); Red Cell Distribution Width 17.4 % (11.5-14.5); Segmented Neutrophils % 74.8 %
[2017-02-23 05:01] LABS: Magnesium 1.9 mg/dL (1.6-2.6); Phosphorous 4.5 mg/dL (2.3-4.7)
[2017-02-23 05:02] LABS: BUN/Creatinine Ratio 22 (6-26); Blood Urea Nitrogen 24 mg/dL (8-26); Calcium 8.9 mg/dL (8.6-10.8); Carbon Dioxide 28 mEq/L (19-29); Chloride 116 mEq/L (98-109); Glucose 105 mg/dL (70-99); Osmolality,Calculated 316 (280-300); Potassium 3.9 mEq/L (3.5-4.5); Sodium 151 mEq/L (136-145); eGFR For African Americans > 60 (> 60); eGFR For Non-African Americans > 60 (> 60)
[2017-02-23 05:21] LABS: Ionized Calcium 1.19 mmol/L (1.15-1.35)
[2017-02-23] MEDS: Magnesium Sulfate 2 GM in D5% in Water 100 ML IVPB PRN ×2 (06:13→17:03)
[2017-02-23] MEDS: Potassium Chloride 40 MEQ/200 ML BAG IVPB PRN (06:14)
[2017-02-23] MEDS: *HR* HYDROmorphone (PF) 1 MG/ML SYRINGE IVP PRN (07:47)
[2017-02-23] MEDS: Furosemide 40 MG/4 ML VIAL IVP SCH ×2 (08:54→17:03)
[2017-02-23] MEDS: Lactobacillus 1 EACH CAP.SPRINK PO SCH (08:55)
[2017-02-23] MEDS: Nystatin POWDER 30 GM BOTTLE TP SCH ×3 (08:55→20:35)
[2017-02-23] MEDS ORDERED: *HR* Amiodarone 200 MG TABLET PO SCH (09:00)
[2017-02-23] MEDS: Insulin LISPRO 300 UNITS/3 ML VIAL SQ SCH ×4 (09:13→22:26)
--- NOTE | 2017-02-23 11:30 | Cardiology Progress Note ---
Date of Encounter: 02/23/17 Time of Encounter: 11:28 Assessment and Plan (1) A-fib Current Visit: Yes Status: Chronic A-Fib, rate controlled on IV amiodarone. 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 Will stop IV amiodarone. BP will tolerate addition of BB. Will start Toprol XL 25mg daily. Attempt to achieve rate control with BB and can add Digoxin if necessary. Avoid CCB given low EF. Will re-evaluate in AM. No anticoagulation as above. CHADSVASC score 6--high risk for CVA, but high risk for bleeding as well given his GI bleed this admission. ASA was stopped given his duodenal ulcer that had rebleeding. Qualifiers: Atrial fibrillation type: unspecified Qualified Code(s): I48.91 - Unspecified atrial fibrillation (2) Cardiomyopathy Current Visit: Yes Status: Acute LVEF 20-25%. EF previously 55% on a stress test. NICMP vs ICMP. Not a candidate for C currently. GI bleed and SAGE this admission, cellulitis, overall decline in condition. Prognosis is guarded. Code status has been changed. Palliative following. Qualifiers: Cardiomyopathy type: unspecified Qualified Code(s): I42.9 - Cardiomyopathy , unspecified (3) CAD (coronary artery disease) Current Visit: Yes Status: Chronic Per pt, hx of 4 stents. He reports done here, but I cannot find records. Statin, BB. ASA was stopped given his duodenal ulcer that had rebleeding. Qualifiers: Coronary Disease-Associated Artery/Lesion type: [place] artery [place] vs. transplanted heart: [place] heart Associated angina: without angina Qualified Code(s): I25.10 - Atherosclerotic heart disease of [place] coronary artery without angina pectoris (4) CHF (congestive heart failure) Current Visit: Yes Status: Acute EF 20-25%, severe global LV systolic dysfunction. Prior gated EF on stress in 2009 was 58%. On IV Lasix. Start BB. No YEHUDA-I/ARB currently due to needing BP room to start/ uptitrate BB. BLE and BUE noted on exam. Continue IV Lasix. Renal function tolerating. Recommend Strict I/Os, daily weights, Na and fluid restriction. Qualifiers: Congestive heart failure type: unspecified congestive heart failure type Congestive heart failure chronicity: chronic Qualified Code(s): I50.9 - Heart failure, unspecified Discussion w patient/family: The assessment and plan as outlined above was discussed with the patient and/or family members who expressed understanding and agreement. All questions were answered. Thank you for involving us in the care of your patient. Please call with any questions. I will discuss all the above with Dr. Meade and make changes as necessary. Subjective Principal diagnosis: GI bleed, Sepsis, acute systolic CHF. Interval history: Cardiology reconsulted for A-Fib/amiodarone recommendations. Pt is rate controlled on IV amiodarone. Pt reports he does not feel well, but does not give me any specific complaints. Objective Vital Signs Temp Pulse Resp BP Pulse Ox 02/23/17 06:00 75 110/75 02/23/17 05:00 79 115/80 02/23/17 04:37 98 02/23/17 04:00 84 124/74 02/23/17 03:50 99.1 F 98 17 121/90 97 02/23/17 03:00 75 112/48 02/23/17 02:00 81 105/64 02/23/17 01:00 78 115/41 02/23/17 00:00 77 118/74 02/22/17 23:55 99.1 F 89 20 105/41 97 02/22/17 23:00 74 126/72 02/22/17 22:00 88 151/85 02/22/17 21:00 80 129/58 02/22/17 20:30 98.5 F 94 18 145/79 97 02/22/17 16:00 99.6 F 84 20 107/45 94 02/22/17 13:44 94 20 118/61 99 02/22/17 12:07 97.9 F 94 20 118/61 99 Intake and Output 02/22/17 02/23/17 02/23/17 23:59 07:59 15:59 Intake Total 104 / 104 400 / 400 Output Total 1400 / 1400 Balance -1296 / -1296 400 / 400 Intake: IV Fluids 104 / 104 400 / 400 Amiodarone Drip Premix 200 / 200 360mg/200mL 360 mg In 200 ml @ 0.5 MG/MIN 16.667 mls/hr IVC CONT XIMENA Rx#: [id number] Magnesium Sulfate 2 GM In 104 / 104 Dextrose 5% 100 ML @ 50 mls/hr IVPB Q6H PRN Rx#: [id number] Potassium Chloride 20 mEq 200 / 200 /100 mL 40 meq In 200 ml @ 100 mls/hr IVPB Q1H PRN Rx#:[id number] Output: Catheter 1400 / 1400 Other: Blood Glucose* 106 General: Conversant, No Apparent Distress HEENT: Atraumatic, Normocephaly, Mucus Membranes Moist Neck: Normal carotid pulses Cardiac: Other (irregularly irregular) Lungs: Normal Breath Sounds, No Wheeze, Rales, Rhonchi Neuro: Alert and responsive, No focal deficits noted Abdomen: Soft, Non-Tender Skin: No rashes noted on visualized skin Musculoskeletal: No Chest Wall Tenderness Extremities: Other (moderate BLE and BUE edema noted.) Results 02/23/17 04:30 02/23/17 04:30 Lab Results 02/22/17 02/22/17 02/22/17 12:30 17:00 21:30 WBC Hgb Hct Plt Count Sodium 149 H 151 H Potassium 3.8 3.7 Chloride 114 H 115 H Carbon Dioxide 27 28 BUN 24 24 Creatinine 1.07 1.06 Glucose 141 H 123 H Calcium 8.8 8.7 Magnesium 1.8 02/23/17 02/23/17 02/23/17 04:30 04:30 04:30 WBC 10.6 Hgb 10.0 L Hct 32.4 L Plt Count 186 Sodium 151 H Potassium 3.9 Chloride 116 H Carbon Dioxide 28 BUN 24 Creatinine 1.09 Glucose 105 H Calcium 8.9 Magnesium 1.9 - Imaging and Cardiology Stress Test: report reviewed Echo: report reviewed - EKG Interpretation EKG results cardiology: other (24 hour tele AVG HR 80, A-fib, 7 beat run NSVT) Consult Discharge Plan - Plan Referrals: Samuel,Yasmani Martin MD [Non-Partnered Physician] - (OFFICE WILL NOT MAKE A FOLLOW UP APPOINTMENT FOR THIS PATIENT UNITL WE HAVE A DISCHARGE ORDER)
[2017-02-23] MEDS: Metoprolol XL (24 HR) Succ 25 MG TAB.ER.24H PO SCH (13:39)
--- NOTE | 2017-02-23 14:15 | Event Note ---
Date of Encounter: 02/23/17 Time of Encounter: 13:40 Patient more alert today. Transitioned to po Amiodarone and tolerating nectar thick liquids without coughing. Daughter Patricia at bedside. Discussed patients overall condition and provided a list of local ECF rehab facilities for her to visit for DC planning. Explained that patient will need extensive rehab and care post DC. Patricia understands that patient is weak and remains fragile. I encouraged her to take it day by day. She verbalized understanding and reviewed ECF list for visitation. Will follow from a distance.
[2017-02-23 15:14] LABS: Magnesium 1.8 mg/dL (1.6-2.6); Potassium 3.5 mEq/L (3.5-4.5)
--- NOTE | 2017-02-23 15:42 | Internal Med Progress Note ---
Date of Encounter: 02/23/17 Time of Encounter: 10:00 - Assessment and plan (1) Sepsis Current Visit: Yes Status: Acute Assessment and plan: secondary to b/l lower leg cellulitis, wound cultures positive, Antibx course complete Qualifiers: Sepsis type: sepsis due to unspecified organism Qualified Code(s): A41.9 - Sepsis, unspecified organism (2) Cellulitis Current Visit: Yes Status: Acute Assessment and plan: Improved Qualifiers: Site of cellulitis: extremity Site of cellulitis of extremity: lower extremity Laterality: right Qualified Code(s): L03.115 - Cellulitis of right lower limb (3) Essential hypertension Current Visit: Yes Status: Acute Assessment and plan: Will monitor closely. Hold antihypertensives. (4) Diabetes mellitus Current Visit: Yes Status: Chronic Assessment and plan: Fairly controlled. 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 Not on anticoagulation due to GI bleed - on amiodarone as per cardiology Qualifiers: Atrial fibrillation type: unspecified Qualified Code(s): I48.91 - Unspecified atrial fibrillation (7) Encephalopathy Current Visit: Yes Status: Acute Assessment and plan: likely due to sepsis and multiple medical problems, improving (8) Acute respiratory failure with hypoxia and hypercapnia Current Visit: Yes Status: Acute Assessment and plan: extubated successfully (9) Decubitus ulcer Current Visit: Yes Status: Acute Assessment and plan: wound care consult, dressing change daily Qualifiers: Pressure ulcer location: buttock Pressure ulcer stage: stage 3 Laterality : left Qualified Code(s): L89.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 Does no verbalize well, but able to follow verbal commands. Daughter is at bedside, she has been explained about patient's guarded condition and guarded prognosis. No fever. Hemodynamically stable. PO Amiodarone continued for atrial fibrillation. no other acute events or complaints. - Constitutional Vitals: Temp Pulse Resp BP Pulse Ox 99.1 F 75 17 110/75 97 02/23/17 03:50 02/23/17 06:00 02/23/17 03:50 02/23/17 06:00 02/23/17 03:50 General appearance: Present: morbidly obese, no acute distress. Absent: answers questions appropriately Exam: awake and more repsonsive today, follows verbal commands - Head Head exam: Present: atraumatic - Neck Neck exam general surgery: Present: supple - Respiratory Respiratory exam: Present: CTAB. Absent: rhonchi, wheezes - Cardiovascular Cardiovascular exam: Present: RRR, +S1, +S2 - GI/Abdominal GI/Abdominal exam: Present: distended, soft. Absent: guarding, splenomegaly - Extremities Exam Extremities exam: Present: pedal edema, radial pulses palpable and symetrical. Absent: cyanotic Additional comments: dressing over both lowr legs - Neurological Exam Neurological exam: Present: alert, no focal deficits Additional comments: able to vebalize, able to move extremities, follows verbal commands - Skin Additional comments: sacral and decubitus ulcers - stage 3 Internal Medicine: Result - Labs CBC & Chem 7: 02/23/17 04:30 02/23/17 14:49 Labs: Short CBC 02/23/17 Range/Units 04:30 WBC 10.6 (4.3-11.1) K/mcL Hgb 10.0 L (12.9-16.9) g/dL Hct 32.4 L (37.5-50.1) % Plt Count 186 (140-400) K/mcL Neutrophils # 7.9 (1.6-8.9) K/mcL BMP 02/22/17 02/23/17 02/23/17 21:30 04:30 14:49 Sodium 151 H 151 H Potassium 3.7 3.9 3.5 Chloride 115 H 116 H Carbon Dioxide 28 28 BUN 24 24 Creatinine 1.06 1.09 Glucose 123 H 105 H Calcium 8.7 8.9 - ABG Interpretation ABG results: ABG ABG pH 7.41 pH Units (7.32-7.45) 02/20/17 04:30 ABG pCO2 45 mmHg (35-45) 02/20/17 04:30 ABG pO2 75 mmHg (85-104) L 02/20/17 04:30 ABG O2 Saturation 95 % (95-98) 02/20/17 04:30 PT/INR, D-dimer PT 16.3 Seconds (9.4-12.1) H 02/16/17 01:38 Consult Discharge Plan - Plan Referrals: Yasmani Baker MD [Non-Partnered Physician] - (OFFICE WILL NOT MAKE A FOLLOW UP APPOINTMENT FOR THIS PATIENT UNITL WE HAVE A DISCHARGE ORDER)
[2017-02-23] MEDS: Ipratropium/Albuterol Neb 3 ML IH SCH ×2 (16:38→20:14)
[2017-02-23] MEDS: Miconazole w/zinc oxide&karaya 92 APPL/92 GM TUBE TP SCH (20:35)
[2017-02-24] MEDS: Ipratropium/Albuterol Neb 3 ML IH SCH ×4 (03:59→21:48)
[2017-02-24] MEDS: *HR* HYDROmorphone (PF) 1 MG/ML SYRINGE IVP PRN ×2 (04:56→10:47)
[2017-02-24] MEDS: Pantoprazole 40 MG VIAL IVP SCH (05:42)
[2017-02-24 06:15] LABS: BUN/Creatinine Ratio 23 (6-26); Blood Urea Nitrogen 22 mg/dL (8-26); Calcium 8.8 mg/dL (8.6-10.8); Carbon Dioxide 29 mEq/L (19-29); Chloride 114 mEq/L (98-109); Glucose 116 mg/dL (70-99); Osmolality,Calculated 314 (280-300); Potassium 3.4 mEq/L (3.5-4.5); Sodium 150 mEq/L (136-145); eGFR For African Americans > 60 (> 60); eGFR For Non-African Americans > 60 (> 60)
[2017-02-24 08:08] LABS: Basophils % 0.4 %; Eosinophils # 0.3 K/mcL (0.0-0.6); Eosinophils % 2.9 %; Hematocrit 33.8 % (37.5-50.1); Hemoglobin 10.2 g/dL (12.9-16.9); Immature Granulocytes % 0.4 % (0-4); Lymphocytes # 1.4 K/mcL (0.6-4.6); Lymphocytes % 14.4 %; Mean Corpuscular HGB Conc 30.2 g/dL (31.6-35.5); Mean Corpuscular Hemoglobin 28.7 pg (28.0-33.3); Mean Corpuscular Volume 94.9 fL (83.0-100.0); Mean Platelet Volume 10.6 fL (9.4-12.4); Monocytes # 0.6 K/mcL (0.0-1.3); Monocytes % 6.4 %; Neutrophils # 7.5 K/mcL (1.6-8.9); Platelet Count 197 K/mcL (140-400); Red Blood Count 3.56 M/mcL (4.19-5.50); Red Cell Distribution Width 17.1 % (11.5-14.5); Segmented Neutrophils % 75.5 %
--- NOTE | 2017-02-24 09:04 | Cardiology Progress Note ---
Date of Encounter: 02/24/17 Time of Encounter: 08:30 Assessment and Plan (1) A-fib Current Visit: Yes Status: Chronic A-Fib, rate controlled with oral betablocker. Amiodarone discontinued on . Poor candidate for long-teram anticoagulation given recent GI bleeding s/p multiple units PRBCs and very guarded prognosis. Telemetry review: avg HR=78, afib, paced at times. No significant event noted. Blood pressure tolerating Toprol XL 25mg daily; continue to increase dose as needed for rate control as BP will tolerate. Avoid CCB given low EF. No anticoagulation as above. CHADSVASC score 6--high risk for CVA, but high risk for bleeding as well given his acute GI bleed requiring multiple units of PRBC this admission. ASA was stopped given his duodenal ulcer that had re- bleeding. No further recommendations from Cardiology standpoint, will sign-off. Qualifiers: Atrial fibrillation type: unspecified Qualified Code(s): I48.91 - Unspecified atrial fibrillation (2) CHF (congestive heart failure) Current Visit: Yes Status: Acute EF 20-25%, severe global LV systolic dysfunction. Prior gated EF on stress in 2009 was 58%. On IV Lasix. Continue betablocker; consider addition of ACEi or ARB by discharge if BP will tolerate. Cumulative I&O: -5326 mL BLE and BUE noted on exam. Continue IV Lasix. Renal function tolerating. Recommend Strict I/Os, daily weights, Na and fluid restriction. Qualifiers: Congestive heart failure type: unspecified congestive heart failure type Congestive heart failure chronicity: chronic Qualified Code(s): I50.9 - Heart failure, unspecified (3) Cardiomyopathy Current Visit: Yes Status: Acute LVEF 20-25%. EF previously 55% on a stress test. NICMP vs ICMP. Not a candidate for [facility] currently. GI bleed and SAGE this admission, cellulitis, overall decline in condition. Prognosis is guarded. Code status has been changed to DNRCC-DNI. Palliative following. Qualifiers: Cardiomyopathy type: unspecified Qualified Code(s): I42.9 - Cardiomyopathy , unspecified (4) CAD (coronary artery disease) Current Visit: Yes Status: Chronic Per pt, hx of 4 stents. He reports PCI completed at [facility], unable to locate records. Statin, BB. ASA was stopped given his duodenal ulcer that had re-bleeding. Qualifiers: Coronary Disease-Associated Artery/Lesion type: [place] artery [place] vs. transplanted heart: kiana heart Associated angina: without angina Qualified Code(s): I25.10 - Atherosclerotic heart disease of [place] coronary artery without angina pectoris Discussion w patient/family: The assessment and plan as outlined above was discussed with the patient and/or family members who expressed understanding and agreement. All questions were answered. Thank you for involving us in the care of your patient. Please call with any questions. The patient was discussed and reviewed with Dr. Meade who agrees with plan as stated above. Subjective Principal diagnosis: GI bleed, Sepsis, acute systolic CHF. Interval history: Seen and examined this morning. First encounter with patient. Speech therapy at bedside working with patient. Reports he does not feel well this AM, unable to describe specific complaints. He is drowsy; although responds to simple verbal commands appropriately. Pallative care following; social media assistant following. Plan for discharge to ECF when able. Objective Vital Signs, Last 4 Hours Temp Pulse Resp BP Pulse Ox 02/24/17 08:00 99.1 F 88 16 107/50 98 02/24/17 05:36 89.9 F L 75 18 148/85 92 02/24/17 05:09 73 18 92 General: Other (appears chronically ill) HEENT: Atraumatic, Normocephaly Cardiac: Other (irregularly irregular) Lungs: Other (anterior only, coarse breath sounds. ) Neuro: Other (drowsy, alert to person) Abdomen: Soft Skin: Other (BLE wrapped kerlix--seeping. ) Extremities: Other (significant BLE edema, +2-3 to knees) Results 02/24/17 05:41 02/24/17 05:41 Lab Results 02/23/17 02/24/17 02/24/17 14:49 05:41 05:41 WBC 10.0 Hgb 10.2 L Hct 33.8 L Plt Count 197 Sodium 150 H Potassium 3.5 3.4 L Chloride 114 H Carbon Dioxide 29 BUN 22 Creatinine 0.96 Glucose 116 H Calcium 8.8 Magnesium 1.8 Active Medications Acetaminophen (Tylenol) 650 mg PO Q6HR PRN PRN Reason: Mild Pain (1-3) Stop: 08/08/17 05:01 Albuterol/Ipratropium (Duoneb) 3 ml IH [id number] XIMENA PRN Reason: Protocol Stop: 08/25/17 16:01 Last Admin: 02/24/17 03:59 Dose: 3 ml Atorvastatin Calcium (Lipitor) 40 mg PO HS XIMENA Stop: 08/10/17 21:01 Last Admin: 02/23/17 20:35 Dose: 40 mg Collagenase (Santyl) 1 appl TP DAILY XIMENA PRN Reason: Protocol Stop: 08/23/17 16:01 Last Admin: 02/23/17 08:55 Dose: 1 appl Dextrose/Water (Dextrose 50% (Syg)) 25 ml IVP AD PRN PRN Reason: Hypoglycemia Stop: 08/08/17 05:05 Furosemide (Lasix) 40 mg IVP BIDDIURETIC XIMENA Stop: 08/17/17 17:01 Last Admin: 02/23/17 17:03 Dose: 40 mg Glucagon (Glucagen) 1 mg IM ONCE PRN PRN Reason: Hypoglycemia Stop: 08/08/17 05:05 Glucose (Gluctose) 15 gm PO ONCE PRN PRN Reason: Hypoglycemia Stop: 08/08/17 05:05 Glucose (Gluctose) 30 gm PO ONCE PRN PRN Reason: Hypoglycemia Stop: 08/08/17 05:05 Hydromorphone HCl (Dilaudid) 0.5 mg IVP Q4HR PRN PRN Reason: severe pain 7-10 Stop: 08/16/17 16:49 Last Admin: 02/24/17 04:56 Dose: 0.5 mg Calcium Gluconate 1,000 mg/ (Dextrose) 110 mls @ 50 mls/hr IVPB Q6HR PRN PRN Reason: Hypocalcemia Stop: 08/18/17 03:03 Dextrose (Dextrose 5%) 1,000 mls @ 100 mls/hr IVC .Q10H PRN PRN Reason: HYPOGLYCEMIA Stop: 08/08/17 05:05 Magnesium Sulfate 2 gm/ (Dextrose) 104 mls @ 50 mls/hr IVPB Q6H PRN PRN Reason: Hypomagnesemia Stop: 08/18/17 03:03 Last Admin: 02/23/17 17:03 Dose: 50 mls/hr Potassium Chloride (Potassium Chloride 20 Meq/100 Ml) 40 meq in 200 mls @ 100 mls/hr IVPB Q1H PRN PRN Reason: Potassium less than 4 Stop: 08/18/17 03:03 Last Admin: 02/23/17 06:14 Dose: 100 mls/hr Potassium Phosphate 44 meq/ (Sodium Chloride) 260 mls @ 40 mls/hr IVPB Q10H PRN PRN Reason: Phosphate less than 3 Stop: 08/20/17 04:41 Insulin Human Lispro (Humalog) 0 units SQ HS XIMENA PRN Reason: Protocol Stop: 08/23/17 21:01 Last Admin: 02/23/17 22:26 Dose: Not Given Insulin Human Lispro (Humalog) 0 units SQ TIDAC XIMENA PRN Reason: Protocol Stop: 08/23/17 16:31 Last Admin: 02/24/17 09:12 Dose: Not Given Lactobacillus Acidophilus/Rhamnosus (Culturelle) 2 each PO DAILY [facility] Stop: 08/09/17 10:46 Last Admin: 02/23/17 08:55 Dose: 2 each Metoprolol Succinate (Toprol Xl) 25 mg PO DAILY XIMENA Stop: 08/25/17 12:01 Last Admin: 02/23/17 13:39 Dose: 25 mg Miconazole Nitrate (Antifungal Extra Thick) 1 appl TP BID XIMENA Stop: 08/25/17 21:01 Last Admin: 02/23/17 20:35 Dose: 1 appl Naloxone HCl (Narcan) 0.4 mg IVP Q2MIN PRN PRN Reason: Opioid Reversal Stop: 08/08/17 05:01 Nystatin (Nystop) 1 appl TP TID XIMENA Stop: 08/24/17 15:01 Last Admin: 02/23/17 20:35 Dose: 1 appl Ondansetron HCl (Zofran) 4 mg IVP Q8HR PRN PRN Reason: Nausea And Vomiting Stop: 08/08/17 05:01 Pantoprazole Sodium (Protonix) 40 mg IVP Q12HR XIMENA Stop: 08/21/17 09:01 Last Admin: 02/24/17 05:42 Dose: 40 mg Potassium Chloride (Potassium Chloride) 40 meq PO DAILY PRN PRN Reason: Hypokalemia Stop: 08/25/17 15:44 Last Admin: 02/23/17 17:03 Dose: 40 meq Sucralfate (Carafate) 1 gm GTUBE QIDAC [facility] Stop: 08/10/17 18:31 Last Admin: 02/23/17 20:35 Dose: 1 gm - Imaging and Cardiology Echo: report reviewed Other Results: 12 hour tele: avg HR 78 afib, paced at times. - EKG Interpretation EKG results cardiology: personally reviewed Consult Discharge Plan - Plan Referrals: Samuel,Yasmani Martin MD [Non-Partnered Physician] - (Patient is going to rehab ([facility]F) no PCP appointment needed)
[2017-02-24] MEDS: Insulin LISPRO 300 UNITS/3 ML VIAL SQ SCH ×4 (09:12→20:50)
[2017-02-24] MEDS ORDERED: Potassium Chloride Elixir 20 MEQ/15 ML UDC PO ONE (09:13)
[2017-02-24] MEDS: Lactobacillus 1 EACH CAP.SPRINK PO SCH (09:17)
[2017-02-24] MEDS: Metoprolol XL (24 HR) Succ 25 MG TAB.ER.24H PO SCH (09:17)
[2017-02-24] MEDS: Furosemide 40 MG/4 ML VIAL IVP SCH ×2 (09:18→15:58)
[2017-02-24 10:41] LABS: Ionized Calcium 1.17 mmol/L (1.15-1.35)
[2017-02-24 11:24] LABS: Phosphorous 3.3 mg/dL (2.3-4.7)
[2017-02-24 11:29] LABS: Magnesium 1.8 mg/dL (1.6-2.6)
[2017-02-24] MEDS: Nystatin POWDER 30 GM BOTTLE TP SCH ×3 (13:26→20:40)
--- NOTE | 2017-02-24 13:26 | Internal Med Progress Note ---
Date of Encounter: 02/24/17 Time of Encounter: 09:35 - Assessment and plan (1) Sepsis Current Visit: Yes Status: Acute Assessment and plan: secondary to b/l lower leg cellulitis, wound cultures positive, Antibx course complete Qualifiers: Sepsis type: sepsis due to unspecified organism Qualified Code(s): A41.9 - Sepsis, unspecified organism (2) Cellulitis Current Visit: Yes Status: Acute Assessment and plan: Improved, IV antibx course complete Qualifiers: Site of cellulitis: extremity Site of cellulitis of extremity: lower extremity Laterality: right Qualified Code(s): L03.115 - Cellulitis of right lower limb (3) CHF (congestive heart failure) Current Visit: Yes Status: Acute Assessment and plan: LVEF% 20-25% with cardiomyopathy, probably due to CAD without angina, with chronic atrial fibrillation, s/p pacemaker Lasix, BB, ACEi/ARB cardiology following Qualifiers: Congestive heart failure type: unspecified congestive heart failure type Congestive heart failure chronicity: chronic Qualified Code(s): I50.9 - Heart failure, unspecified (4) Essential hypertension Current Visit: Yes Status: Acute Assessment and plan: controlled, Will monitor closely. Hold antihypertensives. (5) Diabetes mellitus Current Visit: Yes Status: Chronic Assessment and plan: Fairly controlled, hyperglycemia, Continue current insulin Qualifiers: Diabetes mellitus type: type 2 Diabetes mellitus complication status: with unspecified complications Diabetes mellitus alf insulin use: without alf use Qualified Code(s): E11.8 - Type 2 diabetes mellitus with unspecified complications (6) A-fib Current Visit: Yes Status: Chronic Assessment and plan: Rate controlled. 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 Does not verbalize well. Able to follow verbal commands. Generalized weakness. Daughter is at bedside, she has been explained about patient's guarded condition and poor prognosis due to severe cardiomyopathy and multiple comorbid conditions. No fever. Hemodynamically stable. no other acute events or complaints. - Constitutional Vitals: Temp Pulse Resp BP Pulse Ox 99.1 F 88 20 107/50 96 02/24/17 08:00 02/24/17 08:00 02/24/17 11:04 02/24/17 08:00 02/24/17 11:04 General appearance: Present: A&O X 2, morbidly obese, no acute distress. Absent : answers questions appropriately Exam: chronically ill-appearing, drows, but wakes up when name is called - Head Head exam: Present: atraumatic - Neck Neck exam general surgery: Present: supple - Respiratory Respiratory exam: Absent: rhonchi, wheezes Additional comments: good air entry b/l, coarse breath sounds b/l - Cardiovascular Cardiovascular exam: Present: irregular rhythm, +S1, +S2 - GI/Abdominal GI/Abdominal exam: Present: distended, soft. Absent: guarding, tenderness - Extremities Exam Extremities exam: Present: pedal edema (b/l 2+), radial pulses palpable and symetrical. Absent: cyanotic Additional comments: b/l lower legs dressing+ - Neurological Exam Additional comments: drowsy, wakes up when name is called, able to move extremities, minimally verbal , follows simple verbal commands - Skin Additional comments: sacral and gluteal decubitus ulcers, multiple, stage 3 Internal Medicine: Result - Labs CBC & Chem 7: 02/24/17 05:41 02/24/17 05:41 Labs: Short CBC 02/24/17 Range/Units 05:41 WBC 10.0 (4.3-11.1) K/mcL Hgb 10.2 L (12.9-16.9) g/dL Hct 33.8 L (37.5-50.1) % Plt Count 197 (140-400) K/mcL Neutrophils # 7.5 (1.6-8.9) K/mcL BMP 02/23/17 02/24/17 14:49 05:41 Sodium 150 H Potassium 3.5 3.4 L Chloride 114 H Carbon Dioxide 29 BUN 22 Creatinine 0.96 Glucose 116 H Calcium 8.8 - ABG Interpretation ABG results: ABG ABG pH 7.41 pH Units (7.32-7.45) 02/20/17 04:30 ABG pCO2 45 mmHg (35-45) 02/20/17 04:30 ABG pO2 75 mmHg (85-104) L 02/20/17 04:30 ABG O2 Saturation 95 % (95-98) 02/20/17 04:30 PT/INR, D-dimer PT 16.3 Seconds (9.4-12.1) H 02/16/17 01:38 Consult Discharge Plan - Plan Referrals: Samuel,Yasmani Martin MD [Non-Partnered Physician] - (Patient is going to rehab (EC[facility]) no PCP appointment needed)
[2017-02-24] MEDS: Miconazole w/zinc oxide&karaya 92 APPL/92 GM TUBE TP SCH ×2 (13:27→20:40)
[2017-02-24] MEDS: Acetaminophen 325 MG TABLET PO PRN (16:01)
[2017-02-25] MEDS: Ipratropium/Albuterol Neb 3 ML IH SCH ×4 (03:14→22:59)
[2017-02-25] MEDS: *HR* OxyCODONE/APAP 5/325 TABLET PO PRN (05:22)
[2017-02-25 06:08] LABS: Basophils # 0.1 K/mcL (0.0-0.2); Basophils % 0.5 %; Eosinophils # 0.3 K/mcL (0.0-0.6); Eosinophils % 2.7 %; Hematocrit 34.9 % (37.5-50.1); Hemoglobin 10.6 g/dL (12.9-16.9); Immature Granulocytes % 0.5 % (0-4); Lymphocytes # 1.3 K/mcL (0.6-4.6); Lymphocytes % 12.7 %; Mean Corpuscular HGB Conc 30.4 g/dL (31.6-35.5); Mean Corpuscular Hemoglobin 29.1 pg (28.0-33.3); Mean Corpuscular Volume 95.9 fL (83.0-100.0); Mean Platelet Volume 10.8 fL (9.4-12.4); Monocytes # 0.6 K/mcL (0.0-1.3); Monocytes % 5.7 %; Neutrophils # 7.9 K/mcL (1.6-8.9); Platelet Count 173 K/mcL (140-400); Red Blood Count 3.64 M/mcL (4.19-5.50); Red Cell Distribution Width 16.7 % (11.5-14.5); Segmented Neutrophils % 77.9 %
[2017-02-25 06:24] LABS: BUN/Creatinine Ratio 23 (6-26); Blood Urea Nitrogen 23 mg/dL (8-26); Calcium 8.8 mg/dL (8.6-10.8); Carbon Dioxide 28 mEq/L (19-29); Chloride 114 mEq/L (98-109); Glucose 178 mg/dL (70-99); Osmolality,Calculated 316 (280-300); Sodium 149 mEq/L (136-145); eGFR For African Americans > 60 (> 60); eGFR For Non-African Americans > 60 (> 60)
[2017-02-25] MEDS: Acetaminophen 325 MG TABLET PO PRN ×2 (06:43→20:52)
[2017-02-25] MEDS: Insulin LISPRO 300 UNITS/3 ML VIAL SQ SCH ×4 (09:47→21:15)
[2017-02-25] MEDS: Nystatin POWDER 30 GM BOTTLE TP SCH ×3 (09:50→20:54)
[2017-02-25] MEDS: Lactobacillus 1 EACH CAP.SPRINK PO SCH (09:50)
[2017-02-25] MEDS: Furosemide 40 MG/4 ML VIAL IVP SCH ×2 (09:50→17:21)
[2017-02-25] MEDS: Metoprolol XL (24 HR) Succ 25 MG TAB.ER.24H PO SCH (09:50)
--- NOTE | 2017-02-25 10:28 | Internal Med Progress Note ---
Date of Encounter: 02/25/17 Time of Encounter: 08:40 - Assessment and plan (1) Decubitus ulcer Current Visit: Yes Status: Acute Assessment and plan: sacral and decubitus ulcers, unstageable Surgery evaluation, cultures - pending, IV antibx wound care consult, dressing change daily Qualifiers: Pressure ulcer location: buttock Pressure ulcer stage: stage 3 Laterality : left Qualified Code(s): L89.323 - Pressure ulcer of left buttock, stage 3 (2) Sepsis Current Visit: Yes Status: Acute Assessment and plan: secondary to b/l lower leg cellulitis and decubitus ulcers Repeat cultures wound cultures positive, Antibx course complete Qualifiers: Sepsis type: sepsis due to unspecified organism Qualified Code(s): A41.9 - Sepsis, unspecified organism (3) Cellulitis Current Visit: Yes Status: Acute Assessment and plan: Improved, restart IV antibx in view of sepsis Qualifiers: Site of cellulitis: extremity Site of cellulitis of extremity: lower extremity Laterality: right Qualified Code(s): L03.115 - Cellulitis of right lower limb (4) CHF (congestive heart failure) Current Visit: Yes Status: Acute Assessment and plan: LVEF% 20-25% with severe cardiomyopathy, probably due to CAD without angina, with chronic atrial fibrillation, s/p pacemaker - poor prognosis Lasix, BB, ACEi/ARB cardiology following Qualifiers: Congestive heart failure type: unspecified congestive heart failure type Congestive heart failure chronicity: chronic Qualified Code(s): I50.9 - Heart failure, unspecified (5) Essential hypertension Current Visit: Yes Status: Acute Assessment and plan: controlled, Will monitor closely. Hold antihypertensives. 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 Not on anticoagulation due to GI bleed cardiology following Qualifiers: Atrial fibrillation type: unspecified Qualified Code(s): I48.91 - Unspecified atrial fibrillation (8) Encephalopathy Current Visit: Yes Status: Acute Assessment and plan: likely due to sepsis and multiple medical problems (9) Acute respiratory failure with hypoxia and hypercapnia Current Visit: Yes Status: Acute Assessment and plan: extubated successfully (10) GI bleeding Current Visit: Yes Status: Acute Assessment and plan: no further bleeding, EGD done by GI, stable, avoid anticoagulation due to GI bleed Qualifiers: GI bleed type/associated pathology: duodenal ulcer Qualified Code(s): 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 Does not verbalize well. Able to follow simple verbal commands. Generalized weakness. Temperature spike early this morning. BP is lower. Sacral and gluteal decubitus ulcers are worse today. Restart IV Antibx after cultures. Will need surgery evaluation. Patient does have left forearm pain, worse with movement. Daughter has been explained about patient's guarded condition and poor prognosis due to severe cardiomyopathy and multiple comorbid conditions. no other acute events or complaints. - Constitutional Vitals: Temp Pulse Resp BP Pulse Ox 98.8 F 67 22 96/55 95 02/25/17 08:06 02/25/17 08:06 02/25/17 08:06 02/25/17 08:06 02/25/17 08:06 General appearance: Present: A&O X 2, morbidly obese, no acute distress. Absent : answers questions appropriately - Head Head exam: Present: atraumatic - Neck Neck exam general surgery: Present: supple - Respiratory Additional comments: decreased air entry in both bases, mild rhonchi b/l - Cardiovascular Cardiovascular exam: Present: RRR, +S1, +S2 - GI/Abdominal GI/Abdominal exam: Present: distended, soft. Absent: guarding - Extremities Exam Extremities exam: Present: pedal edema, radial pulses palpable and symetrical. Absent: cyanotic Additional comments: left forearm and wrist swelling++ - Neurological Exam Additional comments: drowsy, wakes up when name is called, does not verbalize well, able to move extremities - Skin Additional comments: unstageable sacral gluteal decubitus ulcers Internal Medicine: Result - Labs CBC & Chem 7: 02/25/17 05:37 02/25/17 05:37 Labs: Short CBC 02/25/17 Range/Units 05:37 WBC 10.1 (4.3-11.1) K/mcL Hgb 10.6 L (12.9-16.9) g/dL Hct 34.9 L (37.5-50.1) % Plt Count 173 (140-400) K/mcL Neutrophils # 7.9 (1.6-8.9) K/mcL BMP 02/25/17 05:37 Sodium 149 H Potassium 3.0 L Chloride 114 H Carbon Dioxide 28 BUN 23 Creatinine 1.00 Glucose 178 H Calcium 8.8 - ABG Interpretation ABG results: ABG ABG pH 7.41 pH Units (7.32-7.45) 02/20/17 04:30 ABG pCO2 45 mmHg (35-45) 02/20/17 04:30 ABG pO2 75 mmHg (85-104) L 02/20/17 04:30 ABG O2 Saturation 95 % (95-98) 02/20/17 04:30 PT/INR, D-dimer PT 16.3 Seconds (9.4-12.1) H 02/16/17 01:38 - Impressions Impressions Chest X-Ray 02/24/17 07:35 IMPRESSION: Cardiomegaly with small bilateral pleural effusions and worsening pulmonary edema compared to prior exam. Left basilar opacity may represent atelectasis or consolidation from pneumonia. D/ / Bebo Jade MD / Bebo Jade MD Interpreting Provider: Bebo Jade MD Consult Discharge Plan - Plan Referrals: Yasmani Baker MD [Non-Partnered Physician] - (Patient is going to rehab ([facility]) no PCP appointment needed)
[2017-02-25] MEDS: Vancomycin 2,000 MG in D5% in Water 500 ML IVPB SCH ×2 (10:33→22:20)
[2017-02-25 10:40] LABS: Ionized Calcium 1.24 mmol/L (1.15-1.35)
[2017-02-25 10:48] LABS: Magnesium 1.5 mg/dL (1.6-2.6); Phosphorous 3.2 mg/dL (2.3-4.7)
[2017-02-25] MEDS: Miconazole w/zinc oxide&karaya 92 APPL/92 GM TUBE TP SCH ×2 (11:11→20:53)
--- NOTE | 2017-02-25 13:12 | Event Note ---
Date of Encounter: 02/25/17 Time of Encounter: 13:00 Saw pt briefly, nurse at bedside feeding pt. He is alert and oriented today. c /o left wrist pain whenever arm or hand is moved. X-ray pending. Increased sacral buttocks wound to be evaluated by surgery. Continues on IV antibiotics. Confirmed with pt he desires to maintain DNR/DNI status. Completed state DNR form. No visitors at present. Will f/u on clinical course Tuesday. Please call over weekend if needed.
--- NOTE | 2017-02-25 15:48 | General Surgery Progress Note ---
Date of Encounter: 02/27/17 Time of Encounter: 15:46 - Assessment and Plan (1) Decubitus ulcer Current Visit: Yes Status: Acute Appears to be of a stage III sacral decubitus ulcer on the left side with a stage II decubitus ulcer on the left. Would recommend placement of sentinel over the necrotic wound base and coverage with some type of wound protection device and change daily. Wound should be cleaned daily also with Hibiclens. Informed by the nursing staff that the patient has a new bed ordered which I think is appropriate. Local wound care measures as mentioned above. Qualifiers: Pressure ulcer location: buttock Pressure ulcer stage: stage 3 Laterality : unspecified laterality Qualified Code(s): L89.303 - Pressure ulcer of unspecified buttock, stage 3 Subjective Patient reports: other (I was asked to see the patient regarding a sacral decubitis wound that may have started on 02/24/17. Patient is unable to give an accurate history. ) Objective Vital Signs - Last 8 Hours Temp Pulse Resp BP Pulse Ox 02/25/17 11:39 99.1 F 20 119/57 93 02/25/17 10:42 20 95 02/25/17 08:06 98.8 F 67 22 96/55 95 Intake and Output 02/24/17 02/25/17 02/25/17 23:59 07:59 15:59 Output Total 1500 / 1500 850 / 850 700 / 700 Balance -1500 / -1500 -850 / -850 -700 / -700 Output: Catheter 1500 / 1500 850 / 850 700 / 700 Other: Meal Dinner Percent of Meal Consumed 50% Weight 126 kg Blood Glucose* 159 213 Patient Weight 02/25/17 23:59 Weight 126 kg - Rectum other (There appears to be possibly stage II to 3 superficial decubitus wound on buttocks near the anus. This is approximately 6 x 4 cm on the left side and right side. On the left side there is some more darkened discoloration or necrotic tissue but again appears superficial in nature. There is some excoriation on the left side. No drainage noted.) - Labs 02/27/17 04:20 02/27/17 04:00 Diabetes panel 02/25/17 Range/Units 05:37 Sodium 149 H (136-145) mEq/L Potassium 3.0 L (3.5-4.5) mEq/L Chloride 114 H (98-109) mEq/L Carbon Dioxide 28 (19-29) mEq/L BUN 23 (8-26) mg/dL Creatinine 1.00 (0.72-1.25) mg/dL Glucose 178 H (70-99) mg/dL Calcium 8.8 (8.6-10.8) mg/dL Calcium panel 02/25/17 02/25/17 Range/Units 05:37 10:20 Calcium 8.8 (8.6-10.8) mg/dL Phosphorus 3.2 (2.3-4.7) mg/dL Pituitary panel 02/25/17 Range/Units 05:37 Sodium 149 H (136-145) mEq/L Potassium 3.0 L (3.5-4.5) mEq/L Chloride 114 H (98-109) mEq/L Carbon Dioxide 28 (19-29) mEq/L BUN 23 (8-26) mg/dL Creatinine 1.00 (0.72-1.25) mg/dL Glucose 178 H (70-99) mg/dL Calcium 8.8 (8.6-10.8) mg/dL Adrenal panel 02/25/17 Range/Units 05:37 Sodium 149 H (136-145) mEq/L Potassium 3.0 L (3.5-4.5) mEq/L Chloride 114 H (98-109) mEq/L Carbon Dioxide 28 (19-29) mEq/L BUN 23 (8-26) mg/dL Creatinine 1.00 (0.72-1.25) mg/dL Glucose 178 H (70-99) mg/dL Calcium 8.8 (8.6-10.8) mg/dL Consult Discharge Plan - Plan Referrals: Yasmani Baker MD [Non-Partnered Physician] - (Patient is going to rehab ([facility]) no PCP appointment needed)
[2017-02-25] MEDS: Magnesium Sulfate 2 GM in D5% in Water 100 ML IVPB PRN (17:20)
[2017-02-25] MEDS: Piperacillin/Tazobactam 3.375 GM in D5% in Water (Mini-Bag+) 100 ML IVPB SCH ×2 (17:21→22:30)
[2017-02-25] MEDS ORDERED: Vancomycin 1,000 MG in D5% in Water 250 ML IVPB SCH (18:00)
[2017-02-26] MEDS: Ipratropium/Albuterol Neb 3 ML IH SCH ×4 (04:12→22:20)
[2017-02-26 04:43] LABS: Basophils # 0.1 K/mcL (0.0-0.2); Basophils % 0.8 %; Eosinophils # 0.5 K/mcL (0.0-0.6); Eosinophils % 4.2 %; Hematocrit 30.2 % (37.5-50.1); Immature Granulocytes % 0.5 % (0-4); Lymphocytes # 1.4 K/mcL (0.6-4.6); Lymphocytes % 12.7 %; Mean Corpuscular HGB Conc 29.8 g/dL (31.6-35.5); Mean Corpuscular Hemoglobin 28.3 pg (28.0-33.3); Mean Platelet Volume 10.6 fL (9.4-12.4); Monocytes # 0.8 K/mcL (0.0-1.3); Neutrophils # 8.5 K/mcL (1.6-8.9); Platelet Count 168 K/mcL (140-400); Red Blood Count 3.18 M/mcL (4.19-5.50); Red Cell Distribution Width 16.3 % (11.5-14.5); Segmented Neutrophils % 74.8 %
[2017-02-26 04:50] LABS: BUN/Creatinine Ratio 22 (6-26); Blood Urea Nitrogen 19 mg/dL (8-26); Calcium 8.2 mg/dL (8.6-10.8); Carbon Dioxide 31 mEq/L (19-29); Chloride 111 mEq/L (98-109); Glucose 116 mg/dL (70-99); Osmolality,Calculated 305 (280-300); Sodium 146 mEq/L (136-145); eGFR For African Americans > 60 (> 60); eGFR For Non-African Americans > 60 (> 60)
[2017-02-26 07:07] LABS: Ionized Calcium 1.21 mmol/L (1.15-1.35)
[2017-02-26 07:17] LABS: Magnesium 1.5 mg/dL (1.6-2.6); Phosphorous 3.2 mg/dL (2.3-4.7)
[2017-02-26] MEDS: Insulin LISPRO 300 UNITS/3 ML VIAL SQ SCH ×4 (08:28→21:20)
[2017-02-26] MEDS: Metoprolol XL (24 HR) Succ 25 MG TAB.ER.24H PO SCH (08:37)
[2017-02-26] MEDS: Furosemide 40 MG/4 ML VIAL IVP SCH ×2 (08:37→17:31)
[2017-02-26] MEDS: Lactobacillus 1 EACH CAP.SPRINK PO SCH (08:37)
[2017-02-26] MEDS: Piperacillin/Tazobactam 3.375 GM in D5% in Water (Mini-Bag+) 100 ML IVPB SCH ×2 (08:38→17:32)
[2017-02-26] MEDS: Miconazole w/zinc oxide&karaya 92 APPL/92 GM TUBE TP SCH (08:38)
[2017-02-26] MEDS: Vancomycin 2,000 MG in D5% in Water 500 ML IVPB SCH (08:38)
[2017-02-26] MEDS: Nystatin POWDER 30 GM BOTTLE TP SCH ×3 (08:39→21:18)
[2017-02-26] MEDS: Magnesium Sulfate 2 GM in D5% in Water 100 ML IVPB PRN (10:34)
--- NOTE | 2017-02-26 10:41 | Internal Med Progress Note ---
Date of Encounter: 02/26/17 Time of Encounter: 09:35 - Assessment and plan (1) Decubitus ulcer Current Visit: Yes Status: Acute Assessment and plan: sacral and decubitus ulcers, stage3 Surgery evaluation - recommendations reviewed, cultures - pending, IV antibx restarted wound care consult, dressing change daily Qualifiers: Pressure ulcer location: buttock Pressure ulcer stage: stage 3 Laterality : unspecified laterality Qualified Code(s): L89.303 - Pressure ulcer of unspecified buttock, stage 3 (2) Sepsis Current Visit: Yes Status: Acute Assessment and plan: secondary to b/l lower leg cellulitis and decubitus ulcers Repeat cultures wound cultures positive, Antibx restarted Qualifiers: Sepsis type: sepsis due to unspecified organism Qualified Code(s): A41.9 - Sepsis, unspecified organism (3) Cellulitis Current Visit: Yes Status: Acute Assessment and plan: Improved, restart IV antibx in view of sepsis due to decubitus ulcers Qualifiers: Site of cellulitis: extremity Site of cellulitis of extremity: lower extremity Laterality: right Qualified Code(s): L03.115 - Cellulitis of right lower limb (4) CHF (congestive heart failure) Current Visit: Yes Status: Acute Assessment and plan: LVEF% 20-25% with severe cardiomyopathy, probably due to CAD without angina, with chronic atrial fibrillation, s/p pacemaker - poor prognosis Lasix, BB, ACEi/ARB cardiology following - poor candidate for anticoagulation due to GI bleed Qualifiers: Congestive heart failure type: unspecified congestive heart failure type Congestive heart failure chronicity: chronic Qualified Code(s): I50.9 - Heart failure, unspecified (5) Essential hypertension Current Visit: Yes Status: Acute Assessment and plan: controlled, Will monitor closely. Hold antihypertensives for now (6) Diabetes mellitus Current Visit: Yes Status: Chronic Assessment and plan: Fairly controlled, hyperglycemia, Continue current insulin sliding scale Qualifiers: Diabetes mellitus type: type 2 Diabetes mellitus complication status: with unspecified complications Diabetes mellitus rodent exterminator insulin use: without rodent exterminator use Qualified Code(s): E11.8 - Type 2 diabetes mellitus with unspecified complications (7) A-fib Current Visit: Yes Status: Chronic Assessment and plan: Rate controlled. Not on anticoagulation due to GI bleed cardiology following Qualifiers: Atrial fibrillation type: unspecified Qualified Code(s): I48.91 - Unspecified atrial fibrillation (8) Encephalopathy Current Visit: Yes Status: Acute Assessment and plan: likely due to sepsis and multiple medical problems (9) Acute respiratory failure with hypoxia and hypercapnia Current Visit: Yes Status: Acute Assessment and plan: extubated successfully, continue 2L NC (10) GI bleeding Current Visit: Yes Status: Acute Assessment and plan: no further bleeding, EGD done by GI, stable avoid anticoagulation due to GI bleed Qualifiers: GI bleed type/associated pathology: duodenal ulcer Qualified Code(s): 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 Palliative care following - Time Spent With Patient 25 - 35 minutes - Subjective Interval history: Patient is drowsy, but wakes up when name is called. Follows simple verbal commands. Able to verbalize minimally. Generalized weakness. Fever last night. Sacral and gluteal decubitus ulcers are worse. IV Antibx continued. Patient does have left forearm pain, worse with movement. XR reveals non-specific soft tissue edema. Daughter has been explained about patient's guarded condition and poor prognosis due to severe cardiomyopathy and multiple comorbid conditions. Patient and daughter have stated they wan to maintain DNR/DNI status. Palliative care is following. no other acute events or complaints. - Constitutional Vitals: Temp Pulse Resp BP Pulse Ox 98.9 F 81 20 103/69 96 02/26/17 08:13 02/26/17 08:13 02/26/17 08:13 02/26/17 08:13 02/26/17 08:13 General appearance: Present: A&O X 2, morbidly obese, no acute distress. Absent : answers questions appropriately Exam: generalized weakness, chronically ill-appearing - Head Head exam: Present: atraumatic - Neck Neck exam general surgery: Present: supple - Respiratory Additional comments: decreased air entry in both bases, mild rhonchi b/l, no rales, no wheezes - Cardiovascular Cardiovascular exam: Present: irregular rhythm, +S1, +S2, systolic murmur - GI/Abdominal GI/Abdominal exam: Present: soft. Absent: guarding, tenderness - Extremities Exam Extremities exam: Present: pedal edema (b/l), radial pulses palpable and symetrical. Absent: cyanotic Additional comments: left forearm swelling++ and tenderness+ with limited ROM - Neurological Exam Neurological exam: Present: alert Additional comments: able to follow simple verbal commands, minimally verbal, able to withdraw to pain - Skin Additional comments: stage 3 decubitus ulcers over sacral and gluteal regions Internal Medicine: Result - Labs CBC & Chem 7: 02/26/17 03:55 02/26/17 03:55 Labs: Short CBC 02/26/17 Range/Units 03:55 WBC 11.4 H (4.3-11.1) K/mcL Hgb 9.0 L D (12.9-16.9) g/dL Hct 30.2 L (37.5-50.1) % Plt Count 168 (140-400) K/mcL Neutrophils # 8.5 (1.6-8.9) K/mcL BMP 02/25/17 02/26/17 16:30 03:55 Sodium 146 H Potassium 2.9 L 3.0 L Chloride 111 H Carbon Dioxide 31 H BUN 19 Creatinine 0.86 Glucose 116 H Calcium 8.2 L - ABG Interpretation ABG results: ABG ABG pH 7.41 pH Units (7.32-7.45) 02/20/17 04:30 ABG pCO2 45 mmHg (35-45) 02/20/17 04:30 ABG pO2 75 mmHg (85-104) L 02/20/17 04:30 ABG O2 Saturation 95 % (95-98) 02/20/17 04:30 PT/INR, D-dimer PT 16.3 Seconds (9.4-12.1) H 02/16/17 01:38 - Impressions Impressions Forearm X-Ray 02/25/17 10:09 IMPRESSION: 1. No acute osseous abnormality of the left forearm. 2. Nonspecific soft tissue edema, most prominent involving the proximal forearm. D/ / 02/25/2017 16:48:14 Danilo Ng MD / [email or web address] Interpreting Provider: Danilo Ng MD Consult Discharge Plan - Plan Referrals: Yasmani Baker MD [Non-Partnered Physician] - (Patient is going to rehab ([facility]) no PCP appointment needed)
[2017-02-26] MEDS: Acetaminophen 325 MG TABLET PO PRN (21:45)
[2017-02-27] MEDS: Piperacillin/Tazobactam 3.375 GM in D5% in Water (Mini-Bag+) 100 ML IVPB SCH ×3 (01:14→15:25)
[2017-02-27] MEDS: Miconazole w/zinc oxide&karaya 92 APPL/92 GM TUBE TP SCH ×3 (01:20→22:08)
[2017-02-27] MEDS: Ipratropium/Albuterol Neb 3 ML IH SCH ×4 (04:24→22:51)
[2017-02-27 04:33] LABS: Ionized Calcium 1.17 mmol/L (1.15-1.35)
[2017-02-27 04:37] LABS: Basophils # 0.1 K/mcL (0.0-0.2); Basophils % 0.5 %; Eosinophils # 0.4 K/mcL (0.0-0.6); Eosinophils % 3.3 %; Hematocrit 29.1 % (37.5-50.1); Hemoglobin 8.9 g/dL (12.9-16.9); Immature Granulocytes % 0.9 % (0-4); Lymphocytes # 1.3 K/mcL (0.6-4.6); Lymphocytes % 10.7 %; Mean Corpuscular HGB Conc 30.6 g/dL (31.6-35.5); Mean Corpuscular Hemoglobin 28.9 pg (28.0-33.3); Mean Corpuscular Volume 94.5 fL (83.0-100.0); Mean Platelet Volume 10.6 fL (9.4-12.4); Monocytes # 0.8 K/mcL (0.0-1.3); Monocytes % 7.2 %; Neutrophils # 9.1 K/mcL (1.6-8.9); Platelet Count 173 K/mcL (140-400); Red Blood Count 3.08 M/mcL (4.19-5.50); Red Cell Distribution Width 16.2 % (11.5-14.5); Segmented Neutrophils % 77.4 %
[2017-02-27 04:40] LABS: Phosphorous 2.9 mg/dL (2.3-4.7)
[2017-02-27 04:41] LABS: BUN/Creatinine Ratio 20 (6-26); Blood Urea Nitrogen 18 mg/dL (8-26); Calcium 8.2 mg/dL (8.6-10.8); Carbon Dioxide 33 mEq/L (19-29); Chloride 106 mEq/L (98-109); Glucose 138 mg/dL (70-99); Magnesium 1.5 mg/dL (1.6-2.6); Osmolality,Calculated 302 (280-300); Potassium 2.8 mEq/L (3.5-4.5); Sodium 144 mEq/L (136-145); eGFR For African Americans > 60 (> 60); eGFR For Non-African Americans > 60 (> 60)
[2017-02-27] MEDS: Insulin LISPRO 300 UNITS/3 ML VIAL SQ SCH ×4 (07:50→21:20)
[2017-02-27] MEDS: Metoprolol XL (24 HR) Succ 25 MG TAB.ER.24H PO SCH (07:56)
[2017-02-27] MEDS: Lactobacillus 1 EACH CAP.SPRINK PO SCH (07:56)
[2017-02-27] MEDS: Furosemide 40 MG/4 ML VIAL IVP SCH ×2 (07:56→16:44)
[2017-02-27] MEDS: Nystatin POWDER 30 GM BOTTLE TP SCH ×3 (07:58→22:09)
--- NOTE | 2017-02-27 11:05 | Internal Med Progress Note ---
Date of Encounter: 02/27/17 Time of Encounter: 09:30 - Assessment and plan (1) Decubitus ulcer Current Visit: Yes Status: Acute Assessment and plan: sacral and decubitus ulcers, stage3 Surgery evaluation - recommendations reviewed c/s - pending, IV antibx restarted wound care consult, dressing change daily Qualifiers: Pressure ulcer location: buttock Pressure ulcer stage: stage 3 Laterality : unspecified laterality Qualified Code(s): L89.303 - Pressure ulcer of unspecified buttock, stage 3 (2) Sepsis Current Visit: Yes Status: Acute Assessment and plan: secondary to b/l lower leg cellulitis and decubitus ulcers wound cultures positive for gram negative rods, Antibx restarted Qualifiers: Sepsis type: sepsis due to unspecified organism Qualified Code(s): A41.9 - Sepsis, unspecified organism (3) Cellulitis Current Visit: Yes Status: Acute Assessment and plan: Improved, IV antibx restarted in view of sepsis due to decubitus ulcers Qualifiers: Site of cellulitis: extremity Site of cellulitis of extremity: lower extremity Laterality: right Qualified Code(s): L03.115 - Cellulitis of right lower limb (4) CHF (congestive heart failure) Current Visit: Yes Status: Acute Assessment and plan: LVEF% 20-25% with severe cardiomyopathy, probably due to CAD without angina, with chronic atrial fibrillation, s/p pacemaker - poor prognosis Lasix, BB, ACEi/ARB cardiology following - poor candidate for anticoagulation due to GI bleed Qualifiers: Congestive heart failure type: unspecified congestive heart failure type Congestive heart failure chronicity: chronic Qualified Code(s): I50.9 - Heart failure, unspecified (5) Essential hypertension Current Visit: Yes Status: Acute Assessment and plan: controlled, Will monitor closely. Hold antihypertensives for now (6) Diabetes mellitus Current Visit: Yes Status: Chronic Assessment and plan: Fairly controlled, hyperglycemia, Continue current insulin sliding scale Qualifiers: Diabetes mellitus type: type 2 Diabetes mellitus complication status: with unspecified complications Diabetes mellitus termite treater helper insulin use: without jail use Qualified Code(s): E11.8 - Type 2 diabetes mellitus with unspecified complications (7) A-fib Current Visit: Yes Status: Chronic Assessment and plan: probably chronic, Rate controlled. Not on anticoagulation due to GI bleed cardiology following Qualifiers: Atrial fibrillation type: unspecified Qualified Code(s): I48.91 - Unspecified atrial fibrillation (8) Encephalopathy Current Visit: Yes Status: Acute Assessment and plan: likely due to sepsis and multiple medical problems Improving slowly (9) Acute respiratory failure with hypoxia and hypercapnia Current Visit: Yes Status: Acute Assessment and plan: extubated successfully, continue 2L NC (10) GI bleeding Current Visit: Yes Status: Acute Assessment and plan: no further bleeding, EGD done - normal esophagus, red blood in stomach, duodenal ulcer avoid anticoagulation due to GI bleed Qualifiers: GI bleed type/associated pathology: duodenal ulcer Qualified Code(s): 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 Palliative care following - Time Spent With Patient 25 - 35 minutes - Subjective Interval history: Patient is awake and alert. More responsive today. Follows verbal commands. Able to verbalize. Generalized weakness. Fever last night and this morning. Denies chest pain or shortness of breath. Sacral and gluteal decubitus ulcers are worse. IV Antibx continued. Patient does have left forearm pain, worse with movement. XR reveals non-specific soft tissue edema. Daughter has been explained about patient's guarded condition and poor prognosis due to severe cardiomyopathy and multiple comorbid conditions. Patient and daughter have stated they want to maintain DNR/DNI status. Palliative care is following. no other acute events or complaints. - Constitutional Vitals: Temp Pulse Resp BP Pulse Ox 99.9 F H 57 18 128/45 94 02/27/17 07:06 02/27/17 07:06 02/27/17 07:06 02/27/17 07:06 02/27/17 07:06 General appearance: Present: A&O X 2, morbidly obese, no acute distress, answers questions appropriately Exam: generalized weakness, chronically ill-appearing - Head Head exam: Present: atraumatic - Neck Neck exam general surgery: Present: supple - Respiratory Additional comments: decreased air entry in both bases, otherwise clear to auscultation - Cardiovascular Cardiovascular exam: Present: irregular rhythm, +S1, +S2, systolic murmur - GI/Abdominal GI/Abdominal exam: Present: soft. Absent: guarding, tenderness - Extremities Exam Extremities exam: Present: pedal edema (b/l), radial pulses palpable and symetrical. Absent: cyanotic Additional comments: left forearm swelling has improved - Neurological Exam Additional comments: awake and alert, able to verbalize, follows verbal commands, able to move extremities - Skin Additional comments: stage 3 decubitus ulcers over sacral and gluteal regions Internal Medicine: Result - Labs CBC & Chem 7: 02/27/17 04:20 02/27/17 04:00 Labs: Short CBC 02/27/17 Range/Units 04:20 WBC 11.7 H (4.3-11.1) K/mcL Hgb 8.9 L (12.9-16.9) g/dL Hct 29.1 L (37.5-50.1) % Plt Count 173 (140-400) K/mcL Neutrophils # 9.1 H (1.6-8.9) K/mcL BMP 02/27/17 04:00 Sodium 144 Potassium 2.8 L Chloride 106 Carbon Dioxide 33 H BUN 18 Creatinine 0.88 Glucose 138 H Calcium 8.2 L - ABG Interpretation ABG results: ABG ABG pH 7.41 pH Units (7.32-7.45) 02/20/17 04:30 ABG pCO2 45 mmHg (35-45) 02/20/17 04:30 ABG pO2 75 mmHg (85-104) L 02/20/17 04:30 ABG O2 Saturation 95 % (95-98) 02/20/17 04:30 PT/INR, D-dimer PT 16.3 Seconds (9.4-12.1) H 02/16/17 01:38 Consult Discharge Plan - Plan Referrals: Samuel,Yasmani Martin MD [Non-Partnered Physician] - (Patient is going to rehab ([facility]) no PCP appointment needed)
[2017-02-27] MEDS: Acetaminophen 325 MG TABLET PO PRN (13:02)
[2017-02-27] MEDS: Magnesium Sulfate 2 GM in D5% in Water 100 ML IVPB PRN (13:05)
[2017-02-28] MEDS: Piperacillin/Tazobactam 3.375 GM in D5% in Water (Mini-Bag+) 100 ML IVPB SCH (00:40)
[2017-02-28 01:11] LABS: Phosphorous 3.2 mg/dL (2.3-4.7); Potassium 3.1 mEq/L (3.5-4.5)
[2017-02-28] MEDS: Ipratropium/Albuterol Neb 3 ML IH SCH ×4 (04:33→22:44)
[2017-02-28 05:20] LABS: Basophils # 0.1 K/mcL (0.0-0.2); Basophils % 0.5 %; Eosinophils # 0.5 K/mcL (0.0-0.6); Eosinophils % 4.7 %; Hematocrit 28.7 % (37.5-50.1); Hemoglobin 8.6 g/dL (12.9-16.9); Immature Granulocytes % 0.8 % (0-4); Lymphocytes # 1.3 K/mcL (0.6-4.6); Lymphocytes % 11.9 %; Mean Corpuscular Hemoglobin 28.2 pg (28.0-33.3); Mean Corpuscular Volume 94.1 fL (83.0-100.0); Mean Platelet Volume 11.3 fL (9.4-12.4); Monocytes # 0.9 K/mcL (0.0-1.3); Monocytes % 7.9 %; Neutrophils # 8.3 K/mcL (1.6-8.9); Platelet Count 188 K/mcL (140-400); Red Blood Count 3.05 M/mcL (4.19-5.50); Red Cell Distribution Width 16.4 % (11.5-14.5); Segmented Neutrophils % 74.2 %
[2017-02-28] MEDS: Acetaminophen 325 MG TABLET PO PRN (06:38)
[2017-02-28 07:23] LABS: BUN/Creatinine Ratio 23 (6-26); Blood Urea Nitrogen 19 mg/dL (8-26); Carbon Dioxide 30 mEq/L (19-29); Chloride 106 mEq/L (98-109); Glucose 141 mg/dL (70-99); Magnesium 1.7 mg/dL (1.6-2.6); Osmolality,Calculated 299 (280-300); Potassium 3.9 mEq/L (3.5-4.5); Sodium 142 mEq/L (136-145); eGFR For African Americans > 60 (> 60); eGFR For Non-African Americans > 60 (> 60)
[2017-02-28] MEDS: Metoprolol XL (24 HR) Succ 25 MG TAB.ER.24H PO SCH (07:42)
[2017-02-28] MEDS: Furosemide 40 MG/4 ML VIAL IVP SCH ×2 (07:43→16:27)
[2017-02-28] MEDS: Lactobacillus 1 EACH CAP.SPRINK PO SCH (07:43)
[2017-02-28] MEDS: Insulin LISPRO 300 UNITS/3 ML VIAL SQ SCH ×4 (08:41→21:41)
[2017-02-28] MEDS: Meropenem 1,000 MG in 0.9 % Sodium Chloride Mini Bag 100 ML IVPB SCH ×2 (09:18→16:26)
[2017-02-28] MEDS: Nystatin POWDER 30 GM BOTTLE TP SCH ×3 (09:25→21:57)
[2017-02-28] MEDS: Miconazole w/zinc oxide&karaya 92 APPL/92 GM TUBE TP SCH ×2 (09:25→21:56)
[2017-02-28] MEDS: *HR* OxyCODONE/APAP 5/325 TABLET PO PRN (10:56)
[2017-02-28] MEDS ORDERED: Aminoglycoside Consult 1 EACH MC ONE (12:00)
--- NOTE | 2017-02-28 13:51 | General Surgery Progress Note ---
Date of Encounter: 02/28/17 Time of Encounter: 13:30 - Assessment and Plan (1) Decubitus ulcer of left buttock, unstageable Current Visit: Yes Status: Acute Cleanse with soap and water and continue applying Santyl nickel thick to necrotic area and then apply Allevyn dressing daily and as needed if soiled Continue pressure reduction mattress (2) Decubitus ulcer of right buttock, stage 2 Current Visit: Yes Status: Acute Cleanse daily with soap and water and apply Allevyn dressing daily and as needed if soiled Continue pressure reduction mattress Subjective Patient reports: no new complaints, bowel movement, fever (Tmax 100.3) Objective Vital Signs - Last 8 Hours Temp Pulse Resp BP Pulse Ox 02/28/17 12:30 98.6 F 86 19 148/75 92 02/28/17 11:20 14 95 02/28/17 07:20 99 F 67 19 117/63 93 Intake and Output 02/27/17 02/28/17 02/28/17 23:59 07:59 15:59 Intake Total 760 / 760 500 / 500 580 / 580 Output Total 750 / 750 400 / 400 900 / 900 Balance 100 / 100 -320 / -320 Intake: IV Fluids 760 / 760 500 / 500 Zosyn 3.375 GM In 100 / 100 100 / 100 Dextrose 5% (Minibag+) 100 ML 100 ML @ 25 mls/hr IVPB Q8HR XIMENA Rx#: [id number] Potassium Chloride 10 mEq 400 / 400 400 / 400 /100mL 10 meq In 100 ml @ 100 mls/hr IVPB Q1H PRN Rx#:[id number] Potassium Phosphate 44 260 / 260 MEQ In 0.9 % Sodium Chloride 250 ML @ 40 mls/ hr IVPB Q10H PRN Rx#: [id number] Oral 480 / 480 Intake, Autotransfusion 100 / 100 Amount Output: Urine 450 / 450 Urethral (Patel) 450 / 450 Catheter 300 / 300 400 / 400 900 / 900 Other: Meal Breakfast Percent of Meal Consumed 55% Stool Size Small Stool Consistency soft soft Stool Characteristics Normal for Patient Pasty Stool Color Brown Brown # Bowel Movements 1 Weight 126.4 kg Blood Glucose* 177 157 Patient Weight 02/28/17 23:59 Weight 126.4 kg - General physical appearance chronically ill, obese - Eyes normal ocular movement - ENT atraumatic, normocephalic - Neck Neck exam: trachea midline - Abdomen Abdomen: Present: soft, non tender - Integumentary other (Left buttock with unstageable decubitus ulcer measuring 7 X 3cm, central area of necrosis noted, small amount of serous drainage without odor, no surrounding erythema or induration; right buttock with stage 2 decubitus ulcer measures 6 X 2 X 0.1 cm with 90% granulation tissue, small amount of serous drainage without odor, no surrounding erythema or induration) - Musculoskeletal other (severe deconditioning) - Psychiatric oriented to person, oriented to place - Labs 02/28/17 04:50 02/28/17 06:30 Diabetes panel 02/27/17 02/28/17 02/28/17 Range/Units 14:28 00:30 06:30 Sodium 142 (136-145) mEq/L Potassium 2.7 L 3.1 L 3.9 (3.5-4.5) mEq/L Chloride 106 (98-109) mEq/L Carbon Dioxide 30 H (19-29) mEq/L BUN 19 (8-26) mg/dL Creatinine 0.83 (0.72-1.25) mg/dL Glucose 141 H (70-99) mg/dL Calcium 8.0 L (8.6-10.8) mg/dL Calcium panel 02/28/17 02/28/17 Range/Units 00:30 06:30 Calcium 8.0 L (8.6-10.8) mg/dL Phosphorus 3.2 (2.3-4.7) mg/dL Pituitary panel 02/27/17 02/28/17 02/28/17 Range/Units 14:28 00:30 06:30 Sodium 142 (136-145) mEq/L Potassium 2.7 L 3.1 L 3.9 (3.5-4.5) mEq/L Chloride 106 (98-109) mEq/L Carbon Dioxide 30 H (19-29) mEq/L BUN 19 (8-26) mg/dL Creatinine 0.83 (0.72-1.25) mg/dL Glucose 141 H (70-99) mg/dL Calcium 8.0 L (8.6-10.8) mg/dL Adrenal panel 06/11/17 06/12/17 06/12/17 Range/Units 14:28 00:30 06:30 Sodium 142 (136-145) mEq/L Potassium 2.7 L 3.1 L 3.9 (3.5-4.5) mEq/L Chloride 106 (98-109) mEq/L Carbon Dioxide 30 H (19-29) mEq/L BUN 19 (8-26) mg/dL Creatinine 0.83 (0.72-1.25) mg/dL Glucose 141 H (70-99) mg/dL Calcium 8.0 L (8.6-10.8) mg/dL Consult Discharge Plan - Plan Referrals: Yasmani Baker MD [Non-Partnered Physician] - (Patient is going to rehab ([facility]) no PCP appointment needed) - Attending Attestation I examined this patient and my medical decision-making was reviewed with the HEALTHCARE RECEPTIONIST/PA/Advanced Practice Nurse/Resident Physician. I agree with the documented findings, disposition and treatment plan as described except to the extent set forth below.
[2017-02-28] MEDS ORDERED: Vancomycin 1,000 MG in D5% in Water 250 ML IVPB ONE (14:00)
--- NOTE | 2017-02-28 15:57 | Internal Med Progress Note ---
Date of Encounter: 02/28/17 Time of Encounter: 10:50 - Assessment and plan (1) Decubitus ulcer Current Visit: Yes Status: Acute Assessment and plan: sacral and decubitus ulcers, stage 3 Surgery evaluation - recommendations reviewed c/s - +ve for P.aeruginosa, E.faecalis IV Antibx restarted wound care consult, dressing change daily Qualifiers: Pressure ulcer location: buttock Pressure ulcer stage: stage 3 Laterality : unspecified laterality Qualified Code(s): L89.303 - Pressure ulcer of unspecified buttock, stage 3 (2) Sepsis Current Visit: Yes Status: Acute Assessment and plan: Improving secondary to b/l lower leg cellulitis and decubitus ulcers wound cultures positive - Antibx restarted Qualifiers: Sepsis type: sepsis due to unspecified organism Qualified Code(s): A41.9 - Sepsis, unspecified organism (3) Cellulitis Current Visit: Yes Status: Acute Assessment and plan: Improved, IV antibx restarted in view of sepsis due to decubitus ulcers Qualifiers: Site of cellulitis: extremity Site of cellulitis of extremity: lower extremity Laterality: right Qualified Code(s): L03.115 - Cellulitis of right lower limb (4) CHF (congestive heart failure) Current Visit: Yes Status: Acute Assessment and plan: LVEF% 20-25% with severe cardiomyopathy, probably due to CAD without angina, with chronic atrial fibrillation, s/p pacemaker - poor prognosis Lasix, BB, ACEi/ARB, I/O, daily weight cardiology following - poor candidate for anticoagulation due to GI bleed Qualifiers: Congestive heart failure type: unspecified congestive heart failure type Congestive heart failure chronicity: chronic Qualified Code(s): I50.9 - Heart failure, unspecified (5) Essential hypertension Current Visit: Yes Status: Acute Assessment and plan: controlled, Will monitor closely continue current meds (6) Diabetes mellitus Current Visit: Yes Status: Chronic Assessment and plan: Fairly controlled, hyperglycemia Continue current insulin sliding scale Qualifiers: Diabetes mellitus type: type 2 Diabetes mellitus complication status: with unspecified complications Diabetes mellitus mcc insulin use: without mcc use Qualified Code(s): E11.8 - Type 2 diabetes mellitus with unspecified complications (7) A-fib Current Visit: Yes Status: Chronic Assessment and plan: probably chronic, Rate controlled now Not on anticoagulation due to GI bleed continue current meds cardiology following Qualifiers: Atrial fibrillation type: unspecified Qualified Code(s): I48.91 - Unspecified atrial fibrillation (8) Encephalopathy Current Visit: Yes Status: Acute (9) Acute respiratory failure with hypoxia and hypercapnia Current Visit: Yes Status: Acute Assessment and plan: extubated successfully continue 2L NC (10) GI bleeding Current Visit: Yes Status: Acute Assessment and plan: no further bleeding - H&H stable no signs of active bleeding EGD done - normal esophagus, red blood in stomach, duodenal ulcer avoid anticoagulation due to GI bleed Qualifiers: GI bleed type/associated pathology: duodenal ulcer Qualified Code(s): 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 (11) Counseling regarding advanced care planning and goals of care Current Visit: Yes Status: Acute Assessment and plan: patient and family have stated DNR/DNI status Palliative care following - Time Spent With Patient 25 - 35 minutes - Subjective Interval history: Patient is awake and alert. More responsive today. Follows verbal commands. Able to verbalize. Generalized weakness. Low-grade fever this morning. Denies chest pain or shortness of breath. Tolerating oral diet. Sacral and gluteal decubitus ulcers are worse. IV Antibx and dressing change continued. Left forearm pain and swelling now improved. XR reveals non-specific soft tissue edema. Daughter has been explained about patient's guarded condition and poor prognosis due to severe cardiomyopathy and multiple comorbid conditions. Patient and daughter have stated they want to maintain DNR/DNI status. Palliative care is following. No other acute events or complaints. - Constitutional Vitals: Temp Pulse Resp BP Pulse Ox 98.6 F 86 19 148/75 92 02/28/17 12:30 02/28/17 12:30 02/28/17 12:30 02/28/17 12:30 02/28/17 12:30 General appearance: Present: A&O X 2, morbidly obese, no acute distress, answers questions appropriately Exam: generalized weakness, chronically ill-appearing - Neck Neck exam general surgery: Present: supple - Respiratory Additional comments: decreased air entry in both bases, otherwise clear to auscultation - Cardiovascular Cardiovascular exam: Present: irregular rhythm, +S1, +S2, systolic murmur - GI/Abdominal GI/Abdominal exam: Present: distended (obese), soft. Absent: guarding, tenderness - Extremities Exam Extremities exam: Present: pedal edema (b/l), radial pulses palpable and symetrical. Absent: cyanotic Additional comments: cellulitis over both lower legs now improved, left forearm swelling has improved - Neurological Exam Neurological exam: Present: alert Additional comments: able to verbalize, follows verbal commands, able to move extremities, generalized weakness - Skin Additional comments: stage 3 decubitus ulcers over sacral and gluteal regions Internal Medicine: Result - Labs CBC & Chem 7: 02/28/17 04:50 02/28/17 06:30 Labs: Short CBC 02/28/17 Range/Units 04:50 WBC 11.2 H (4.3-11.1) K/mcL Hgb 8.6 L (12.9-16.9) g/dL Hct 28.7 L (37.5-50.1) % Plt Count 188 (140-400) K/mcL Neutrophils # 8.3 (1.6-8.9) K/mcL BMP 02/28/17 02/28/17 00:30 06:30 Sodium 142 Potassium 3.1 L 3.9 Chloride 106 Carbon Dioxide 30 H BUN 19 Creatinine 0.83 Glucose 141 H Calcium 8.0 L - ABG Interpretation ABG results: ABG ABG pH 7.41 pH Units (7.32-7.45) 02/20/17 04:30 ABG pCO2 45 mmHg (35-45) 02/20/17 04:30 ABG pO2 75 mmHg (85-104) L 02/20/17 04:30 ABG O2 Saturation 95 % (95-98) 02/20/17 04:30 PT/INR, D-dimer PT 16.3 Seconds (9.4-12.1) H 02/16/17 01:38 Consult Discharge Plan - Plan Referrals: Samuel,Yasmani Martin MD [Non-Partnered Physician] - (Patient is going to rehab ([facility]) no PCP appointment needed)
[2017-03-01] MEDS: Meropenem 1,000 MG in 0.9 % Sodium Chloride Mini Bag 100 ML IVPB SCH ×3 (00:08→16:40)
[2017-03-01 05:04] LABS: Basophils # 0.1 K/mcL (0.0-0.2); Basophils % 0.8 %; Eosinophils # 0.6 K/mcL (0.0-0.6); Eosinophils % 5.8 %; Hematocrit 29.6 % (37.5-50.1); Hemoglobin 9.2 g/dL (12.9-16.9); Immature Granulocytes % 0.8 % (0-4); Lymphocytes # 1.4 K/mcL (0.6-4.6); Lymphocytes % 12.8 %; Mean Corpuscular HGB Conc 31.1 g/dL (31.6-35.5); Mean Corpuscular Hemoglobin 28.7 pg (28.0-33.3); Mean Corpuscular Volume 92.2 fL (83.0-100.0); Mean Platelet Volume 10.4 fL (9.4-12.4); Monocytes # 0.8 K/mcL (0.0-1.3); Monocytes % 7.2 %; Neutrophils # 7.9 K/mcL (1.6-8.9); Platelet Count 212 K/mcL (140-400); Red Blood Count 3.21 M/mcL (4.19-5.50); Red Cell Distribution Width 15.9 % (11.5-14.5); Segmented Neutrophils % 72.6 %
[2017-03-01] MEDS: Ipratropium/Albuterol Neb 3 ML IH SCH ×4 (05:17→23:33)
[2017-03-01 05:21] LABS: BUN/Creatinine Ratio 23 (6-26); Blood Urea Nitrogen 18 mg/dL (8-26); Calcium 8.3 mg/dL (8.6-10.8); Carbon Dioxide 34 mEq/L (19-29); Chloride 102 mEq/L (98-109); Glucose 99 mg/dL (70-99); Osmolality,Calculated 292 (280-300); Potassium 3.5 mEq/L (3.5-4.5); Sodium 140 mEq/L (136-145); eGFR For African Americans > 60 (> 60); eGFR For Non-African Americans > 60 (> 60)
[2017-03-01] MEDS: Insulin LISPRO 300 UNITS/3 ML VIAL SQ SCH ×4 (08:35→20:58)
[2017-03-01] MEDS: Lactobacillus 1 EACH CAP.SPRINK PO SCH (08:40)
[2017-03-01] MEDS: Metoprolol XL (24 HR) Succ 25 MG TAB.ER.24H PO SCH (08:41)
[2017-03-01] MEDS: Furosemide 40 MG/4 ML VIAL IVP SCH ×2 (08:41→16:38)
[2017-03-01] MEDS: Ampicillin 1,000 MG in 0.9 % Sodium Chloride Mini Bag 100 ML IVPB SCH ×4 (08:59→19:51)
[2017-03-01] MEDS: Nystatin POWDER 30 GM BOTTLE TP SCH ×3 (09:09→19:52)
[2017-03-01] MEDS: Miconazole w/zinc oxide&karaya 92 APPL/92 GM TUBE TP SCH ×2 (09:09→19:51)
--- NOTE | 2017-03-01 09:53 | Internal Med Progress Note ---
Date of Encounter: 03/01/17 Time of Encounter: 09:51 - Assessment and plan (1) Sepsis Current Visit: Yes Status: Acute Assessment and plan: Improving secondary to b/l lower leg cellulitis and decubitus ulcers wound cultures noted for MDRO pseudomonas and E.fecalis Started on ampicillin-Day 1 Meropenem-Day 2 Continue IV antibiotics Afebrile now for ~12hrs Leukocytosis is improving Qualifiers: Sepsis type: sepsis due to unspecified organism Qualified Code(s): A41.9 - Sepsis, unspecified organism (2) Cellulitis Current Visit: Yes Status: Acute Assessment and plan: Improved, IV antibx restarted in view of sepsis due to decubitus ulcers Qualifiers: Site of cellulitis: extremity Site of cellulitis of extremity: lower extremity Laterality: right Qualified Code(s): L03.115 - Cellulitis of right lower limb (3) Essential hypertension Current Visit: Yes Status: Chronic Assessment and plan: controlled, Will monitor closely continue current meds (4) Diabetes mellitus Current Visit: Yes Status: Chronic Assessment and plan: FS acceptable, continue to monitor ACHS Continue current insulin regimen Qualifiers: Diabetes mellitus type: type 2 Diabetes mellitus complication status: with unspecified complications Diabetes mellitus manager intermediate insulin use: without detention use Qualified Code(s): E11.8 - Type 2 diabetes mellitus with unspecified complications (5) CHF (congestive heart failure) Current Visit: Yes Status: Acute Assessment and plan: LVEF% 20-25% with severe cardiomyopathy, probably due to CAD without angina, with chronic atrial fibrillation, s/p pacemaker - poor prognosis cardiology has signed off. Patient with poor prognosis due to CMP, afib, family educated and aware I/O -10L Continue Lasix, BB, I/O, daily weight Qualifiers: Congestive heart failure type: unspecified congestive heart failure type Congestive heart failure chronicity: chronic Qualified Code(s): I50.9 - Heart failure, unspecified (6) CAD (coronary artery disease) Current Visit: Yes Status: Chronic Assessment and plan: Patient also has severe LV dysfunction with EF of 20-25%. Poor urine output. High risk for complications and . Not on ASA due to GI bleed Continue Lipitor, BB Qualifiers: Coronary Disease-Associated Artery/Lesion type: [place] artery [place] vs. transplanted heart: [place] heart Associated angina: without angina Qualified Code(s): I25.10 - Atherosclerotic heart disease of [place] coronary artery without angina pectoris (7) SAGE (acute kidney injury) Current Visit: Yes Status: Resolved Assessment and plan: resolved. (8) Cardiomyopathy Current Visit: Yes Status: Acute Assessment and plan: As in CHF/CAD Qualifiers: Cardiomyopathy type: unspecified Qualified Code(s): I42.9 - Cardiomyopathy , unspecified (9) A-fib Current Visit: Yes Status: Chronic Assessment and plan: probably chronic, Rate controlled now Not on anticoagulation due to GI bleed continue current meds Qualifiers: Atrial fibrillation type: unspecified Qualified Code(s): I48.91 - Unspecified atrial fibrillation (10) GI bleeding Current Visit: Yes Status: Acute Assessment and plan: no further bleeding - H&H stable no signs of active bleeding EGD done - normal esophagus, red blood in stomach, duodenal ulcer avoid anticoagulation due to GI bleed Qualifiers: GI bleed type/associated pathology: duodenal ulcer Qualified Code(s): 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 (11) Encephalopathy Current Visit: Yes Status: Resolved Assessment and plan: likely due to sepsis and multiple medical problems Improving slowly (12) Decubitus ulcer of left buttock, unstageable Current Visit: Yes Status: Acute Assessment and plan: Continue wound care per surgery (13) Decubitus ulcer of right buttock, stage 2 Current Visit: Yes Status: Acute Assessment and plan: As above (14) Acute respiratory failure with hypoxia and hypercapnia Current Visit: Yes Status: Resolved Assessment and plan: continue 2L NC - Subjective Interval history: 7-year-old male admitted and being managed for septic shock with group B streptococcal bacteremia, hemorrhagic and hypovolemic shock, cardiomyopathy with ejection fraction 20-25%, gastrointestinal bleed with EGD done 02/08/17, showing bleeding duodenal ulcer, sepsis secondary to right lower extremity cellulitis, with septic shock that has resolved, acute respiratory failure with hypoxia and hypercapnia, acute kidney injury, , stage III decubitus sacral ulcer with MDRO and chronic indwelling Patel catheter He also has atrial fibrillation and has a pacemaker not on anticoagulation. Patient is not evaluated at the bedside, he denies new complaints. Culture noted for MDRO pseudomonas and Enterococcus faecalis. Patient is on meropenem and ampicillin for this. Leukocytosis has resolved with this morning's lab. Last febrile episode was 02/28/18 with a temperature 100.3. - Constitutional Vitals: Temp Pulse Resp BP Pulse Ox 99.3 F 84 22 101/68 96 03/01/17 04:51 03/01/17 05:18 03/01/17 09:35 03/01/17 04:51 03/01/17 09:35 General appearance: Present: A&O X 2, morbidly obese, no acute distress, answers questions appropriately Exam: Vital signs stable In mild painful distress Conjunctiva is clear, sclerae are anicteric. Oral mucosa is moist. Chest is clear to auscultation bilaterally. Heart sounds S1-S2 irregular, no tachycardia. Abdomen is obese soft non-tender no palpable organomegaly. Bilateral lower extremity redness and wound dressings on the right toes and on the left ankle was clean and dry not inspected. Sacral exam is deferred for today has dressing has just been done. Internal Medicine: Result - Labs CBC & Chem 7: 03/01/17 04:55 03/01/17 04:55 Labs: Short CBC 03/01/17 Range/Units 04:55 WBC 10.9 (4.3-11.1) K/mcL Hgb 9.2 L (12.9-16.9) g/dL Hct 29.6 L (37.5-50.1) % Plt Count 212 (140-400) K/mcL Neutrophils # 7.9 (1.6-8.9) K/mcL BMP 03/01/17 04:55 Sodium 140 Potassium 3.5 Chloride 102 Carbon Dioxide 34 H BUN 18 Creatinine 0.79 Glucose 99 Calcium 8.3 L - ABG Interpretation ABG results: ABG ABG pH 7.41 pH Units (7.32-7.45) 02/20/17 04:30 ABG pCO2 45 mmHg (35-45) 02/20/17 04:30 ABG pO2 75 mmHg (85-104) L 02/20/17 04:30 ABG O2 Saturation 95 % (95-98) 02/20/17 04:30 PT/INR, D-dimer PT 16.3 Seconds (9.4-12.1) H 02/16/17 01:38 Consult Discharge Plan - Plan Referrals: Baker,Yasmani Martin MD [Non-Partnered Physician] - (Patient is going to rehab ([facility]) no PCP appointment needed) Prescriptions: Ampicillin Sodium 1 gm IV Q4H #30 vial.port Meropenem-0.9% Sodium Chloride [Meropenem-0.9% NaCl 1 Gram/50] 1 gm IV Q8H #30 piggyback
[2017-03-01] MEDS: *HR* OxyCODONE/APAP 5/325 TABLET PO PRN (12:07)
[2017-03-02] MEDS: Ampicillin 1,000 MG in 0.9 % Sodium Chloride Mini Bag 100 ML IVPB SCH ×6 (01:11→20:24)
[2017-03-02] MEDS: Meropenem 1,000 MG in 0.9 % Sodium Chloride Mini Bag 100 ML IVPB SCH ×3 (01:12→16:46)
[2017-03-02] MEDS: Ipratropium/Albuterol Neb 3 ML IH SCH ×4 (04:45→23:17)
[2017-03-02 05:10] LABS: Basophils # 0.1 K/mcL (0.0-0.2); Basophils % 0.7 %; Eosinophils # 0.5 K/mcL (0.0-0.6); Hematocrit 26.4 % (37.5-50.1); Hemoglobin 8.5 g/dL (12.9-16.9); Immature Granulocytes % 0.8 % (0-4); Lymphocytes # 1.2 K/mcL (0.6-4.6); Lymphocytes % 11.7 %; Mean Corpuscular HGB Conc 32.2 g/dL (31.6-35.5); Mean Corpuscular Hemoglobin 29.2 pg (28.0-33.3); Mean Corpuscular Volume 90.7 fL (83.0-100.0); Mean Platelet Volume 10.6 fL (9.4-12.4); Monocytes # 0.9 K/mcL (0.0-1.3); Monocytes % 8.5 %; Neutrophils # 7.6 K/mcL (1.6-8.9); Platelet Count 226 K/mcL (140-400); Red Blood Count 2.91 M/mcL (4.19-5.50); Red Cell Distribution Width 15.7 % (11.5-14.5); Segmented Neutrophils % 73.3 %
[2017-03-02 05:27] LABS: BUN/Creatinine Ratio 24 (6-26); Blood Urea Nitrogen 19 mg/dL (8-26); Calcium 8.1 mg/dL (8.6-10.8); Carbon Dioxide 32 mEq/L (19-29); Chloride 100 mEq/L (98-109); Glucose 119 mg/dL (70-99); Osmolality,Calculated 291 (280-300); Sodium 139 mEq/L (136-145); eGFR For African Americans > 60 (> 60); eGFR For Non-African Americans > 60 (> 60)
[2017-03-02] MEDS: Furosemide 40 MG/4 ML VIAL IVP SCH ×2 (08:29→16:45)
[2017-03-02] MEDS: Metoprolol XL (24 HR) Succ 25 MG TAB.ER.24H PO SCH (08:29)
[2017-03-02] MEDS: Lactobacillus 1 EACH CAP.SPRINK PO SCH (08:29)
[2017-03-02] MEDS: Insulin LISPRO 300 UNITS/3 ML VIAL SQ SCH ×4 (08:29→22:27)
[2017-03-02] MEDS: Miconazole w/zinc oxide&karaya 92 APPL/92 GM TUBE TP SCH ×2 (08:33→20:25)
[2017-03-02] MEDS: Nystatin POWDER 30 GM BOTTLE TP SCH ×3 (08:34→20:25)
--- NOTE | 2017-03-02 10:35 | Discharge Summary ---
Date of Encounter: 03/03/17 Time of Encounter: 10:35 - Discharge Diagnosis (1) Sepsis Priority: Primary Status: Resolved Qualifiers: Sepsis type: sepsis due to unspecified organism Qualified Code(s): A41.9 - Sepsis, unspecified organism (2) Cellulitis Priority: Primary Status: Acute Qualifiers: Site of cellulitis: extremity Site of cellulitis of extremity: lower extremity Laterality: right Qualified Code(s): L03.115 - Cellulitis of right lower limb (3) Essential hypertension Priority: Secondary Status: Chronic (4) Diabetes mellitus Priority: Secondary Status: Chronic Qualifiers: Diabetes mellitus type: type 2 Diabetes mellitus complication status: with unspecified complications Diabetes mellitus truck terminal manager insulin use: without group home use Qualified Code(s): E11.8 - Type 2 diabetes mellitus with unspecified complications (5) CHF (congestive heart failure) Priority: Primary Status: Acute Qualifiers: Congestive heart failure type: unspecified congestive heart failure type Congestive heart failure chronicity: chronic Qualified Code(s): I50.9 - Heart failure, unspecified (6) CAD (coronary artery disease) Priority: Secondary Status: Chronic Qualifiers: Coronary Disease-Associated Artery/Lesion type: [place] artery [place] vs. transplanted heart: [place] heart Associated angina: without angina Qualified Code(s): I25.10 - Atherosclerotic heart disease of [place] coronary artery without angina pectoris (7) SAGE (acute kidney injury) Priority: Primary Status: Resolved (8) Cardiomyopathy Priority: Primary Status: Acute Qualifiers: Cardiomyopathy type: unspecified Qualified Code(s): I42.9 - Cardiomyopathy , unspecified (9) A-fib Priority: Secondary Status: Chronic Qualifiers: Atrial fibrillation type: unspecified Qualified Code(s): I48.91 - Unspecified atrial fibrillation (10) GI bleeding Priority: Primary Status: Resolved Qualifiers: GI bleed type/associated pathology: duodenal ulcer Qualified Code(s): 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 (11) Encephalopathy Priority: Secondary Status: Resolved (12) Decubitus ulcer of left buttock, unstageable Priority: Primary Status: Acute (13) Decubitus ulcer of right buttock, stage 2 Priority: Primary Status: Acute (14) Acute respiratory failure with hypoxia and hypercapnia Priority: Primary Status: Resolved - Discharge Medications Prescriptions: OxyCODONE/APAP 5/325 [Percocet 5/325 MG] 1 each PO Q4HR PRN #20 tablet PRN Reason: MOD TO SEVERE PAIN 4-10 Ampicillin Sodium 1 gm IV Q4H #30 vial.port Ampicillin Trihydrate 1,000 mg PO Q4H #12 capsule Furosemide [Lasix] 40 mg PO BID #60 tablet Meropenem-0.9% Sodium Chloride [Meropenem-0.9% NaCl 1 Gram/50] 1 gm IV Q8H #30 piggyback Home Medications: Ampicillin Sodium 1 gm IV Q4H #30 vial.port 03/01/17 [Rx] Meropenem-0.9% Sodium Chloride [Meropenem-0.9% NaCl 1 Gram/50] 1 gm IV Q8H #30 piggyback 03/01/17 [Rx] Acetaminophen [Tylenol] 650 mg PO Q6HR PRN #0 tablet 03/02/17 [Rx] Atorvastatin [Lipitor] 40 mg PO HS tablet 03/02/17 [Rx] Collagenase Oint [Santyl] 1 appl TP DAILY tube 03/02/17 [Rx] Furosemide [Lasix] 40 mg PO BID #60 tablet 03/02/17 [Rx] Lactobacillus [Culturelle] 2 each PO DAILY cap.sprink 03/02/17 [Rx] Metoprolol XL (24 HR) Succ [Toprol Xl] 25 mg PO DAILY tab.er.24h 03/02/17 [Rx] Miconazole w/zinc oxide&karaya [Antifungal Extra Thick] 1 appl TP BID tube [Rx] Nystatin POWDER [Nystop] 1 appl TP TID bottle 03/02/17 [Rx] Omeprazole [PriLOSEC] 40 mg PO BIDAC capsule. 03/02/17 [Rx] OxyCODONE/APAP 5/325 [Percocet 5/325 MG] 1 each PO Q4HR PRN #20 tablet 03/02/17 [Rx] Potassium Chloride 40 meq PO DAILY PRN #0 tab.er.prt 03/02/17 [Rx] Sucralfate [Carafate] 1 gm PO QIDAC udc 03/02/17 [Rx] Ampicillin Trihydrate 1,000 mg PO Q4H #12 capsule 03/03/17 [Rx] Allergies/Adverse Reactions: Allergies chlorpheniramine [From Coricidin HBP Cough and Cold] Allergy (Unknown, Verified 02/07/17 17:02) See Comments Unsure of reaction- medication listed on patient's PCP allergies list- dextromethorphan [From Coricidin HBP Cough and Cold] Allergy (Unknown, Verified 02/07/17 17:02) See Comments Unsure of reaction- medication listed on patient's PCP allergies list- Penicillins Allergy (Verified 02/07/17 17:02) Rash Sulfa (Sulfonamide Antibiotics) Allergy (Verified 02/07/17 17:02) Rash Date of admission: 02/06/17 05:00 Primary care physician: PCP NO Consults: 02/06/17 18:40 Consult to Wound Care [CONS] Routine Reason for Consult: leg ulcers Call Completed: No 02/07/17 09:01 Consult to Invasive Line Access Team [CONS] Routine Reason for Consult: limited vasc access, multiple IV ATB Line Type: EPIV 02/07/17 10:26 Consult to Infectious Diseases [CONS] Routine Consulting Provider: [facility] Reason for Consult: GAS bacteremia. Le cellulitis Call Completed: Yes Consult to Nephrology [CONS] Routine Consulting Provider: [facility]/AD/KENDAL/LIZ Reason for Consult: SAGE. GAS bacteremia Call Completed: Yes 02/07/17 13:31 Consult to Cardiology [CONS] Routine Comment: Consulting Provider: Cardiology [facility] Reason for Consult: CHF, CMP, elevated troponin Call Completed: Yes 02/07/17 15:27 Consult to Gastroenterology [CONS] Routine Consulting Provider: [facility] [place] Reason for Consult: Coffee ground emesis Dr. Lunsford to call. Time Notified: 15:15 Call Completed: Yes 02/07/17 15:54 Consult to Podiatry [CONS] Routine Consulting Provider: [facility] Reason for Consult: Hx of right ankle arthroplasty, subsidence of hardware noted on CT scan. Cellulitis of the RLE Time Notified: 15:55 Call Completed: Yes 02/08/17 16:31 Consult to Pulmonology [CONS] Routine Consulting Provider: [facility] Reason for Consult: ICU management Time Notified: 16:31 Call Completed: Yes 02/16/17 08:04 Consult to Palliative Care [CONS] Stat Comment: Consulting Provider: [facility] Reason for Consult: had two episodes of massive GI bleed, septic secondary to cellulitis, low EF 20-25%, discuss goals of care Call Completed: No 02/21/17 11:45 Consult to Physical Therapy [CONS] Routine Comment: Evaluate, develop and implement POC Reason for Consult: deconditioning, weakness OT [Consult to Occupational Therapy] [CONS] Routine Comment: Evaluate, develop and implement POC Reason for Consult: deconditioning, weakness 02/21/17 11:50 Consult to Speech Therapy [CONS] Routine Comment: Evaluate, develop and implement POC Reason for Consult: speech eval Call Completed: No 02/22/17 11:17 Consult to Wound Care [CONS] Routine Reason for Consult: COCCYX WOUNDS Time Notified: : Call Completed: Yes 02/23/17 07:39 Consult to Cardiology [CONS] Routine Comment: Consulting Provider: Cardiology [facility] Reason for Consult: ATRIAL FIBRILLATION Call Completed: No 02/25/17 08:49 Consult to Surgery [CONS] Routine Consulting Provider: [facility] Reason for Consult: unstageable decubitus ulcer Call Completed: No 02/25/17 08:53 Consult to Invasive Line Access Team [CONS] Stat Reason for Consult: limited IV access, electrolyte protocol. Line Type: PICC 02/28/17 08:00 Consult to Infectious Diseases [CONS] Routine Consulting Provider: [facility] Reason for Consult: MDRO in wound, Sepsis Call Completed: No Discharging clinician: Fam Crespo Anticipated date of discharge: 03/03/17 - Patient Status Disposition: Transfer SNF Condition: Fair - Discharge Instructions Follow Up With: Yasmani Baker MD [Non-Partnered Physician] - (Patient is going to rehab ([facility]) no PCP appointment needed) - Diet and Activity Activity: as per physical therapy, wear oxygen at all times Diet: low fat, low cholesterol, low salt diet, other (advanced soft diet, chopped meat, ensure HP BID, Magic cup TID, nectar thickened diet) Interval History: See below Hospital course: 77-year-old male admitted and managed for septic shock with group B streptococcal bacteremia, hemorrhagic and hypovolemic shock, cardiomyopathy with ejection fraction 20-25%, gastrointestinal bleed with EGD done 02/08/17, showing bleeding duodenal ulcer, sepsis secondary to right lower extremity cellulitis, with septic shock that has resolved, acute respiratory failure with hypoxia and hypercapnia, acute kidney injury, , stage III decubitus sacral ulcer with MDRO and chronic indwelling Patel catheter .He also has atrial fibrillation and has a pacemaker not on anticoagulation. Patient's hospital stay complicated by bilateral scaral decubiti with infection with MDRO pseudomonas and Enterococcus faecalis. Patient is on meropenem and ampicillin for this. Leukocytosis has resolved with this morning's lab. Last febrile episode was 02/28/18 with a temperature 100.3. Patient has had a prolonged hospital stay with co-management with GI, Cardiology , Infectious disease and nephrology He is seen today at bedside, he is now clinically stable to be transferred to [facility] terminal [facility] facility/[facility] ECHO done showed LVEF% 20-25% with severe cardiomyopathy, probably due to CAD without angina, with chronic atrial fibrillation, s/p pacemaker. Patient is discharged on Lasix, potassium supplements, antibiotics and pain control, lifelong sucralfate and PPI for his GI bleed due to duodenal ulcer, Lipitor, BB for afib and CAD, he is not on anticoagulation due to GI bleed, he is not on ACEI or ARB due to acute kidney injury. His wound care is as detailed in the continuity form Patient is DNR/DNI - Time Spent with Patient Total time spent providing and/or coordinating discharge services: Greater than 30 minutes (50 minutes spent on patient encounter, chart review, arrangement with SW regarding placement, medication reconciliation and documentation) - Constitutional Vitals: Temp Pulse Resp BP Pulse Ox 98.0 F 75 20 119/79 96 03/02/17 08:17 03/02/17 08:17 03/02/17 08:17 03/02/17 08:17 03/02/17 08:17 General appearance: Present: A&O X 2, morbidly obese, no acute distress, answers questions appropriately Exam: Vital signs stable Not in distress Conjunctiva is clear, sclerae are anicteric. Oral mucosa is moist. Chest is clear to auscultation bilaterally. Heart sounds S1-S2 irregular, no tachycardia. Abdomen is obese soft non-tender no palpable organomegaly. Bilateral lower extremity redness and wound dressings on the right toes and on the left ankle was clean and dry not inspected. No gross neurologic deficits
--- NOTE | 2017-03-02 10:35 | Physician Discharge Referral ---
ExtendedCare Referral Info Transfer To: [facility] Provider in Charge: Dr. Crespo Provider in Charge after Transfer: PCP Institutional Level of Care: Skilled - Diagnosis (1) Sepsis Priority: Primary Status: Resolved (2) Cellulitis Priority: Primary Status: Acute (3) Essential hypertension Priority: Secondary Status: Chronic (4) Diabetes mellitus Priority: Secondary Status: Chronic (5) CHF (congestive heart failure) Priority: Primary Status: Acute (6) CAD (coronary artery disease) Priority: Secondary Status: Chronic (7) SAGE (acute kidney injury) Priority: Primary Status: Resolved (8) Cardiomyopathy Priority: Primary Status: Acute (9) A-fib Priority: Secondary Status: Chronic (10) GI bleeding Priority: Primary Status: Resolved (11) Encephalopathy Priority: Primary Status: Resolved (12) Decubitus ulcer of left buttock, unstageable Priority: Primary Status: Acute (13) Decubitus ulcer of right buttock, stage 2 Priority: Primary Status: Acute (14) Acute respiratory failure with hypoxia and hypercapnia Priority: Primary Status: Resolved Prognosis: Fair Aware of Diagnosis: Patient Aware of Prognosis: Patient - Transfer Medications Prescriptions: OxyCODONE/APAP 5/325 [Percocet 5/325 MG] 1 each PO Q4HR PRN #20 tablet PRN Reason: MOD TO SEVERE PAIN 4-10 Ampicillin Sodium 1 gm IV Q4H #30 vial.port Furosemide [Lasix] 40 mg PO BID #60 tablet Meropenem-0.9% Sodium Chloride [Meropenem-0.9% NaCl 1 Gram/50] 1 gm IV Q8H #30 piggyback Home Medications: Ampicillin Sodium 1 gm IV Q4H #30 vial.port 03/01/17 [Rx] Meropenem-0.9% Sodium Chloride [Meropenem-0.9% NaCl 1 Gram/50] 1 gm IV Q8H #30 piggyback 03/01/17 [Rx] Acetaminophen [Tylenol] 650 mg PO Q6HR PRN #0 tablet 03/02/17 [Rx] Atorvastatin [Lipitor] 40 mg PO HS tablet 03/02/17 [Rx] Collagenase Oint [Santyl] 1 appl TP DAILY tube 03/02/17 [Rx] Furosemide [Lasix] 40 mg PO BID #60 tablet 03/02/17 [Rx] Lactobacillus [Culturelle] 2 each PO DAILY cap.sprink 03/02/17 [Rx] Metoprolol XL (24 HR) Succ [Toprol Xl] 25 mg PO DAILY tab.er.24h 03/02/17 [Rx] Miconazole w/zinc oxide&karaya [Antifungal Extra Thick] 1 appl TP BID tube [Rx] Nystatin POWDER [Nystop] 1 appl TP TID bottle 03/02/17 [Rx] Omeprazole [PriLOSEC] 40 mg PO BIDAC capsule. 03/02/17 [Rx] OxyCODONE/APAP 5/325 [Percocet 5/325 MG] 1 each PO Q4HR PRN #20 tablet 03/02/17 [Rx] Potassium Chloride 40 meq PO DAILY PRN #0 tab.er.prt 03/02/17 [Rx] Sucralfate [Carafate] 1 gm PO QIDAC udc 03/02/17 [Rx] Allergies/Adverse Reactions: Allergies chlorpheniramine [From Coricidin HBP Cough and Cold] Allergy (Unknown, Verified 02/07/17 17:02) See Comments Unsure of reaction- medication listed on patient's PCP allergies list- dextromethorphan [From Coricidin HBP Cough and Cold] Allergy (Unknown, Verified 02/07/17 17:02) See Comments Unsure of reaction- medication listed on patient's PCP allergies list- Penicillins Allergy (Verified 02/07/17 17:02) Rash Sulfa (Sulfonamide Antibiotics) Allergy (Verified 02/07/17 17:02) Rash - Respiratory Orders Oxygen / L per min (2-3 L per minute for O2 sat 92-93%) Smoking Cessation: Smoking cessation has been advised. For more information, call the [place] Tobacco Quit Line at 6-817-MSKI-NOW. - Advance Directives Code Status: DNR-Arrest/Don't Intubate - Mobility Orders Ambulate - Rehabiliation Orders Rehab Orders: Evaluation for Physical Therapy - Treatments List/Other: Wound Care q8-10H 1. excoriation to buttock, posterior thighs and lumbar area of back due to MASD and yeast dermatitis - cleanse gently at least once per shift with Medline Remedy Phytoplex cloths (avoid soap and water) - apply "Secura Antifungal - Extra Thick Formula" to the entire area - thin layer at all times - Hold Nystatin powder to the area as it is caking and causing more irritation. 2. venous stasis dermatitis/lymphedema to BLE - cleanse daily with HCG soap and water - rinse well with water and pat dry - apply calcium alginate with silver ( CSS-Maxorb AG) to all open draining wounds - pad with 4x4s and 5x9 ABDs as needed - wrap with kerlix from toes to knees No compression at this time due to fluid overload - Diet Orders Mechanical Soft (Advanced soft diet, chopped meat, ensure HP BID, Magic cup TID , [place] thickened liquids) CERTIFICATION: I certify that the transfer of the above named patient to an Extended Care Facility is necessary for the continuing treatment of the diagnosis listed. The above information is true and accurate reflection of patient's current condition. Confidential - Redisclosure prohibited without a patient's written consent.
[2017-03-02] MEDS: *HR* OxyCODONE/APAP 5/325 TABLET PO PRN (12:51)
--- NOTE | 2017-03-02 15:22 | Internal Med Progress Note ---
Date of Encounter: 03/02/17 Time of Encounter: 15:20 - Assessment and plan (1) Sepsis Current Visit: Yes Status: Acute Assessment and plan: Improving secondary to b/l lower leg cellulitis and decubitus ulcers wound cultures noted for MDRO pseudomonas and E.fecalis Started on ampicillin-Day 2 Meropenem-Day 3 Continue IV antibiotics Afebrile now for ~12hrs Leukocytosis is improving Qualifiers: Sepsis type: sepsis due to unspecified organism Qualified Code(s): A41.9 - Sepsis, unspecified organism (2) Cellulitis Current Visit: Yes Status: Acute Assessment and plan: Improved, IV antibx restarted in view of sepsis due to decubitus ulcers Qualifiers: Site of cellulitis: extremity Site of cellulitis of extremity: lower extremity Laterality: right Qualified Code(s): L03.115 - Cellulitis of right lower limb (3) Essential hypertension Current Visit: Yes Status: Chronic Assessment and plan: controlled, Will monitor closely continue current meds (4) Diabetes mellitus Current Visit: Yes Status: Chronic Assessment and plan: FS acceptable, continue to monitor ACHS Continue current insulin regimen Qualifiers: Diabetes mellitus type: type 2 Diabetes mellitus complication status: with unspecified complications 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 Patient with poor prognosis due to CMP, afib, family educated and aware I/O -10L Continue Lasix, BB, I/O, daily weight Qualifiers: Congestive heart failure type: unspecified congestive heart failure type Congestive heart failure chronicity: chronic Qualified Code(s): I50.9 - Heart failure, unspecified (6) CAD (coronary artery disease) Current Visit: Yes Status: Chronic Assessment and plan: Patient also has severe LV dysfunction with EF of 20-25%. Poor urine output. High risk for complications and . Not on ASA due to GI bleed Continue Lipitor, BB Qualifiers: Coronary Disease-Associated Artery/Lesion type: [place] artery [place] vs. transplanted heart: [place] heart Associated angina: without angina Qualified Code(s): I25.10 - Atherosclerotic heart disease of [place] coronary artery without angina pectoris (7) SAGE (acute kidney injury) Current Visit: Yes Status: Resolved Assessment and plan: resolved. 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 (11) Encephalopathy Current Visit: Yes Status: Resolved Assessment and plan: likely due to sepsis and multiple medical problems Improved (12) Decubitus ulcer of left buttock, unstageable Current Visit: Yes Status: Acute Assessment and plan: Continue wound care per surgery (13) Decubitus ulcer of right buttock, stage 2 Current Visit: Yes Status: Acute Assessment and plan: As above (14) Acute respiratory failure with hypoxia and hypercapnia Current Visit: Yes Status: Resolved Assessment and plan: continue 2L NC (15) Hypokalemia Current Visit: Yes Status: Acute Assessment and plan: Possibly from lasix Potassium 3.0 Replaced, continue t monitor - Subjective Interval history: 77-year-old male admitted and being managed for septic shock with group B streptococcal bacteremia, hemorrhagic and hypovolemic shock, cardiomyopathy with ejection fraction 20-25%, gastrointestinal bleed with EGD done 02/08/17, showing bleeding duodenal ulcer, sepsis secondary to right lower extremity cellulitis, with septic shock that has resolved, acute respiratory failure with hypoxia and hypercapnia, acute kidney injury, , stage III decubitus sacral ulcer with MDRO and chronic indwelling Patel catheter He also has atrial fibrillation and has a pacemaker not on anticoagulation. Patient is seen and evaluated at the bedside, he denies new complaints. Culture noted for MDRO pseudomonas and Enterococcus faecalis. Patient is on meropenem and ampicillin for this. Leukocytosis has resolved with this morning's lab. Last febrile episode was 02/28/18 with a temperature 100.3. Awaiting placement and need for prolonged IV antibiotics He is otherwise clinically stable - Constitutional Vitals: Temp Pulse Resp BP Pulse Ox 98.2 F 84 18 117/85 99 03/02/17 11:32 03/02/17 11:32 03/02/17 11:32 03/02/17 11:32 03/02/17 11:32 General appearance: Present: A&O X 2, morbidly obese, no acute distress, answers questions appropriately Exam: Vital signs stable Not in distress Conjunctiva is clear, sclerae are anicteric. Oral mucosa is moist. Chest is clear to auscultation bilaterally. Heart sounds S1-S2 irregular, no tachycardia. Abdomen is obese soft non-tender no palpable organomegaly. Bilateral lower extremity redness and wound dressings on the right toes and on the left ankle was clean and dry not inspected. Sacral exam deferred Internal Medicine: Result - Labs CBC & Chem 7: 03/02/17 05:00 03/02/17 05:00 Labs: Short CBC 03/02/17 Range/Units 05:00 WBC 10.3 (4.3-11.1) K/mcL Hgb 8.5 L (12.9-16.9) g/dL Hct 26.4 L (37.5-50.1) % Plt Count 226 (140-400) K/mcL Neutrophils # 7.6 (1.6-8.9) K/mcL BMP 03/02/17 05:00 Sodium 139 Potassium 3.0 L Chloride 100 Carbon Dioxide 32 H BUN 19 Creatinine 0.78 Glucose 119 H Calcium 8.1 L - ABG Interpretation ABG results: ABG ABG pH 7.41 pH Units (7.32-7.45) 02/20/17 04:30 ABG pCO2 45 mmHg (35-45) 02/20/17 04:30 ABG pO2 75 mmHg (85-104) L 02/20/17 04:30 ABG O2 Saturation 95 % (95-98) 02/20/17 04:30 PT/INR, D-dimer PT 16.3 Seconds (9.4-12.1) H 02/16/17 01:38 Consult Discharge Plan - Plan Referrals: Samuel,Yasmani Martin MD [Non-Partnered Physician] - (Patient is going to rehab ([facility]) no PCP appointment needed) Prescriptions: OxyCODONE/APAP 5/325 [Percocet 5/325 MG] 1 each PO Q4HR PRN #20 tablet PRN Reason: MOD TO SEVERE PAIN 4-10 Ampicillin Sodium 1 gm IV Q4H #30 vial.port Furosemide [Lasix] 40 mg PO BID #60 tablet Meropenem-0.9% Sodium Chloride [Meropenem-0.9% NaCl 1 Gram/50] 1 gm IV Q8H #30 piggyback
[2017-03-03] MEDS: Ampicillin 1,000 MG in 0.9 % Sodium Chloride Mini Bag 100 ML IVPB SCH ×5 (00:18→16:35)
[2017-03-03] MEDS: Meropenem 1,000 MG in 0.9 % Sodium Chloride Mini Bag 100 ML IVPB SCH ×3 (01:18→15:52)
[2017-03-03] MEDS: Ipratropium/Albuterol Neb 3 ML IH SCH ×3 (04:05→16:07)
[2017-03-03] MEDS: *HR* OxyCODONE/APAP 5/325 TABLET PO PRN ×2 (04:09→08:21)
[2017-03-03] MEDS: Furosemide 40 MG/4 ML VIAL IVP SCH ×2 (08:21→15:47)
[2017-03-03] MEDS: Lactobacillus 1 EACH CAP.SPRINK PO SCH (08:21)
[2017-03-03] MEDS: Metoprolol XL (24 HR) Succ 25 MG TAB.ER.24H PO SCH (08:22)
[2017-03-03] MEDS: Insulin LISPRO 300 UNITS/3 ML VIAL SQ SCH ×3 (08:24→18:10)
[2017-03-03] MEDS: Miconazole w/zinc oxide&karaya 92 APPL/92 GM TUBE TP SCH (08:34)
[2017-03-03] MEDS: Nystatin POWDER 30 GM BOTTLE TP SCH ×2 (08:34→15:51)
--- NOTE | 2017-03-03 08:58 | Event Note ---
Date of Encounter: 03/03/17 Time of Encounter: 08:57 Palliative care has been following from a distance, noted in the hospitalist report from yesterday the patient's CODE STATUS has been established and as the patient is only waiting on placement at this time palliative we will sign off please reconsult if we can help in any way.
[2017-03-03 10:35] LABS: Magnesium 1.5 mg/dL (1.6-2.6); Potassium 3.3 mEq/L (3.5-4.5)
--- NOTE | 2017-03-03 11:07 | Internal Med Progress Note ---
Date of Encounter: 03/03/17 Time of Encounter: 11:04 - Assessment and plan (1) Sepsis Current Visit: Yes Status: Acute Qualifiers: Sepsis type: sepsis due to unspecified organism Qualified Code(s): A41.9 - Sepsis, unspecified organism (2) Cellulitis Current Visit: Yes Status: Acute Qualifiers: Site of cellulitis: extremity Site of cellulitis of extremity: lower extremity Laterality: right Qualified Code(s): L03.115 - Cellulitis of right lower limb (3) Essential hypertension Current Visit: Yes Status: Chronic (4) Diabetes mellitus Current Visit: Yes Status: Chronic Qualifiers: Diabetes mellitus type: type 2 Diabetes mellitus complication status: with unspecified complications Diabetes mellitus alf insulin use: without alf use Qualified Code(s): E11.8 - Type 2 diabetes mellitus with unspecified complications (5) CHF (congestive heart failure) Current Visit: Yes Status: Acute Qualifiers: Congestive heart failure type: unspecified congestive heart failure type Congestive heart failure chronicity: chronic Qualified Code(s): I50.9 - Heart failure, unspecified (6) CAD (coronary artery disease) Current Visit: Yes Status: Chronic Qualifiers: Coronary Disease-Associated Artery/Lesion type: [place] artery [place] vs. transplanted heart: [place] heart Associated angina: without angina Qualified Code(s): I25.10 - Atherosclerotic heart disease of [place] coronary artery without angina pectoris (7) SAGE (acute kidney injury) Current Visit: Yes Status: Resolved (8) Cardiomyopathy Current Visit: Yes Status: Acute Qualifiers: Cardiomyopathy type: unspecified Qualified Code(s): I42.9 - Cardiomyopathy , unspecified (9) A-fib Current Visit: Yes Status: Chronic Qualifiers: Atrial fibrillation type: unspecified Qualified Code(s): I48.91 - Unspecified atrial fibrillation (10) GI bleeding Current Visit: Yes Status: Acute Qualifiers: GI bleed type/associated pathology: duodenal ulcer Qualified Code(s): 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 (11) Encephalopathy Current Visit: Yes Status: Resolved (12) Decubitus ulcer of left buttock, unstageable Current Visit: Yes Status: Acute (13) Decubitus ulcer of right buttock, stage 2 Current Visit: Yes Status: Acute (14) Acute respiratory failure with hypoxia and hypercapnia Current Visit: Yes Status: Resolved (15) Hypokalemia Current Visit: Yes Status: Acute - Subjective Interval history: 77-year-old male admitted and being managed for septic shock with group B streptococcal bacteremia, hemorrhagic and hypovolemic shock, cardiomyopathy with ejection fraction 20-25%, gastrointestinal bleed with EGD done 02/08/17, showing bleeding duodenal ulcer, sepsis secondary to right lower extremity cellulitis, with septic shock that has resolved, acute respiratory failure with hypoxia and hypercapnia, acute kidney injury, , stage III decubitus sacral ulcer with MDRO and chronic indwelling Patel catheter He also has atrial fibrillation and has a pacemaker not on anticoagulation. Patient is seen and evaluated at the bedside, he denies new complaints. Culture noted for MDRO pseudomonas and Enterococcus faecalis. Patient is on meropenem and ampicillin for this. Leukocytosis has resolved with this morning's lab. Last febrile episode was 02/28/18 with a temperature 100.3. Awaiting placement and need for prolonged IV antibiotics He is otherwise clinically stable - Constitutional Vitals: Temp Pulse Resp BP Pulse Ox 97.9 F 75 19 134/64 97 03/03/17 07:49 03/03/17 08:30 03/03/17 10:47 03/03/17 07:49 03/03/17 10:47 General appearance: Present: A&O X 2, morbidly obese, no acute distress, answers questions appropriately Exam: Vital signs stable Not in distress Conjunctiva is clear, sclerae are anicteric. Oral mucosa is moist. Chest is clear to auscultation bilaterally. Heart sounds S1-S2 irregular, no tachycardia. Abdomen is obese soft non-tender no palpable organomegaly. Bilateral lower extremity redness and wound dressings on the right toes and on the left ankle was clean and dry not inspected. Sacral exam deferred Internal Medicine: Result - Labs CBC & Chem 7: 03/02/17 05:00 03/03/17 10:00 Labs: BMP 03/03/17 10:00 Potassium 3.3 L - ABG Interpretation ABG results: ABG ABG pH 7.41 pH Units (7.32-7.45) 02/20/17 04:30 ABG pCO2 45 mmHg (35-45) 02/20/17 04:30 ABG pO2 75 mmHg (85-104) L 02/20/17 04:30 ABG O2 Saturation 95 % (95-98) 02/20/17 04:30 PT/INR, D-dimer PT 16.3 Seconds (9.4-12.1) H 02/16/17 01:38 Consult Discharge Plan - Plan Referrals: Yasmani Baker MD [Non-Partnered Physician] - (Patient is going to rehab ([facility]) no PCP appointment needed) Prescriptions: OxyCODONE/APAP 5/325 [Percocet 5/325 MG] 1 each PO Q4HR PRN #20 tablet PRN Reason: MOD TO SEVERE PAIN 4-10 Ampicillin Sodium 1 gm IV Q4H #30 vial.port Furosemide [Lasix] 40 mg PO BID #60 tablet Meropenem-0.9% Sodium Chloride [Meropenem-0.9% NaCl 1 Gram/50] 1 gm IV Q8H #30 piggyback
[2017-03-03 11:48] VITALS: BP 117/65
[2017-03-03] MEDS ORDERED: Magnesium Sulfate 2 GM in D5% in Water 100 ML IVPB ONE (14:03)
--- NOTE | 2017-03-03 15:34 | Event Note ---
Date of Encounter: 03/03/17 Time of Encounter: 15:33 Vision seen and examined earlier this morning. Patient is now socially cleared for discharge. Kindly see the discharge summary done today, dated 03/02 for further details.
[2017-03-03] MEDS ORDERED: Methyl Salicylate/Menthol 28 GM TUBE TP PRN (15:35)
== END 2017-03-03 18:30 | DRG 870 ==
LOC: 2NNU 22:40 → EMEROO 22:40 → 2NNU 02-06 03:02 → SUATTDRO 02-06 05:00 → ICNU 02-08 17:16 → 2NNU 02-22 00:59
PROVIDERS: ADMIT Internal Medicine; ATTEND Internal Medicine